=== PATIENT | male | born 1940 | race Caucasian/White ===

== ENCOUNTER 2016-06-05 12:01 | Inpatient (IN) | payer OTHER, MEDICARE ==
[~2016-06-05] VITALS: Ht 172.7 cm; Wt 58.0 kg
[2016-06-05] VITALS (14 sets, daily range): BP systolic 111–204; BP diastolic 56–97; PULSE 90–170; RESP 20–40; TEMP 98.1–103.2; O2SAT 88–99
[~2016-06-05 12:01] MED LIST: PRED20 PO
[2016-06-05] MEDS ORDERED: ADENOSINE IV SOLN 3 MG/ML 2 ML VIAL ONE ×2 (12:29→12:31)
[2016-06-05] MEDS ORDERED: ADENOSINE IV SOLN 3 MG/ML 2 ML VIAL IV PUSH ONE ×4 (12:30→12:45)
[2016-06-05] MEDS ORDERED: DILTIAZEM HCL 25 MG/5 ML VIAL ONE ×2 (12:41→13:02)
[2016-06-05 12:47] LABS: AUTOMATED NEUTROPHIL # 24.5 TH/MM3 (1.8-7.7); BASOPHIL # 0.1 TH/MM3 (0-0.2); BASOPHIL % 0.3 % (0.0-2.0); EOSINOPHIL % 0.1 % (0.0-4.0); HEMATOCRIT 35.7 % (39.0-51.0); LYMPH % 3.8 % (9.0-44.0); MEAN CELL VOLUME 88.6 FL (80.0-100.0); MEAN CORPUSCULAR HEMOGLOBIN 28.4 PG (27.0-34.0); MONO % 5.8 % (0.0-8.0); PLATELET COUNT 196 TH/MM3 (150-450); RED BLOOD COUNT 4.03 MIL/MM3 (4.50-5.90); RED CELL DISTRIBUTION WIDTH 26.5 % (11.6-17.2); WHITE BLOOD COUNT 27.1 TH/MM3 (4.0-11.0)
[2016-06-05 12:49] LABS: HEMO FLAGS AUTO DIFF
[2016-06-05 12:58] LABS: APTT (PATIENT) 22.9 SEC (24.3-30.1); INTERNATIONAL NORMALIZED RATIO 0.9 RATIO
[2016-06-05 13:01] LABS: ALT (GPT) 41 U/L (12-78); ANION GAP 9 MEQ/L (5-15); AST (GOT) 30 U/L (15-37); BICARBONATE 31.4 MEQ/L (21.0-32.0); BLOOD UREA NITROGEN 21 MG/DL (7-18); CHLORIDE 95 MEQ/L (98-107); GLOMERULAR FILTRATION RATE 62 ML/MIN (>89); MAGNESIUM 1.7 MG/DL (1.5-2.5); POTASSIUM 3.8 MEQ/L (3.5-5.1); SODIUM (NA) 135 MEQ/L (136-145)
[2016-06-05 13:05] LABS: ALKALINE PHOSPHATASE 61 U/L (45-117); TOTAL BILIRUBIN ADULT 1.3 MG/DL (0.2-1.0)
--- NOTE | 2016-06-05 13:07 | RADRPT ---
EXAM DATE/TIME: 06/05/2016 12:50 [facility] COMPARISON: CHEST SINGLE AP, January 27, 2016, 14:54. INDICATIONS : Short of breath and upper extremity swelling for several days. MEDICAL HISTORY : Chronic obstructive pulmonary disease. Asthma. SURGICAL HISTORY : Four cardiac stents. ENCOUNTER: Initial ACUITY: 4 - 6 days PAIN SCORE: 2/10 LOCATION: Bilateral chest FINDINGS: A single view of the chest demonstrates hyperinflation which can be seen with COPD. No infiltrates a re seen. Heart is normal in size. The mediastinal contours are unremarkable. Osseous structures are intact. CONCLUSION: Hyperinflation which can be seen with COPD. No acute cardiopulmonary disease and no evidence for an infiltrate. Mani Lopez MD on June 05, 2016 at 13:05 Board Certified Radiologist. This report was verified electronically.
[2016-06-05] MEDS ORDERED: CEFEPIME INJ 2,000 MG in SODIUM CHLORIDE 0.9% INJ 100 ML IV ONE (13:15)
[2016-06-05] MEDS ORDERED: DILTIAZEM HCL 25 MG/5 ML VIAL IV ONE ×3 (13:15→14:15)
[2016-06-05] MEDS ORDERED: VANCOMYCIN INJ 1,200 MG in SODIUM CHLOR 0.9% 250 ML INJ 250 ML IV ONE (13:15)
[2016-06-05 13:17] LABS: CORRECTED NUCLEATED RBC 1 /100 WBC (0-0); NEUTROPHIL # MANUAL DIFF 23.8 TH/MM3 (1.8-7.7); PLATELET ESTIMATE SMEAR NORMAL (NORMAL); PLATELET MORPHOLOGY NORMAL (NORMAL); POLYS (SEG NEUTROPHILS) 88 % (16-70); SCAN/DIFF FINAL DIFF MANUAL; WBC DIFF SAMPLE 100
[2016-06-05 13:24] LABS: KERATOCYTES OCC (NORMAL); TARGET CELLS 1+ (NORMAL)
[2016-06-05] MEDS ORDERED: CLON0.1T PO (13:45)
[2016-06-05] MEDS ORDERED: ALBU0.08 NEB (13:45)
[2016-06-05] MEDS ORDERED: [UNRECOGNIZED DRUG - CODE] PO (13:45)
[2016-06-05] MEDS ORDERED: CYANCRY (13:45)
[2016-06-05] MEDS ORDERED: DILT180C7 PO (13:45)
[2016-06-05] MEDS ORDERED: ERGO1CAP30 PO (13:45)
[2016-06-05] MEDS ORDERED: ASPI81CH7 CHEW (14:00)
[2016-06-05] MEDS ORDERED: CYAN100017 PO (14:00)
[2016-06-05] MEDS ORDERED: MAPA325T PO (14:00)
[2016-06-05] MEDS ORDERED: INSU1INJ5 SQ ×2 (14:04)
[2016-06-05] MEDS ORDERED: KETO1DRO7 EACH EYE (14:04)
[2016-06-05] MEDS ORDERED: LISI-515 PO (14:07)
[2016-06-05] MEDS ORDERED: MILKSUS PO (14:07)
[2016-06-05] MEDS ORDERED: NORC5TAB PO (14:07)
[2016-06-05] MEDS ORDERED: NOVOINJ3 SQ (14:11)
[2016-06-05] MEDS ORDERED: NOVOLOGP2 SQ (14:11)
[2016-06-05] MEDS ORDERED: THERTAB27 PO (14:11)
--- NOTE | 2016-06-05 14:14 | PD ---
HPI Chief Complaint: Edema Time Seen by Provider: 12:22 Travel History International Travel<30 days: No Contact w/Intl Traveler<30days: No Traveled to known affect area: No History of Present Illness HPI This is a 76-year-old male who presents to the emergency department with increasing shortness of breath and arm and leg swelling that been worsening over the past week, constant, severe. He says he's been [facility] but his symptoms have just been worsening. He denies any chest pain. He has not had any fevers or chills. He went to the [facility] who did an EKG and told him to come to the emergency department. PFS Past Medical History AAA: Yes Arthritis: Yes Depression: Yes Heart Rhythm Problems: Yes (AL X 3/PAROXYSMAL A-FIB) Cancer: Yes (HX OF BLADDER CANCER ) Cardiovascular Problems: Yes COPD: Yes GERD: Yes Genitourinary: Yes (CHRONIC KIDNEY DISEASE/BLADDER CA) Hypertension: Yes Medical other: Yes (PVD) Neurologic: Yes (GENERAL MUSCLE WEAKNESS) Respiratory: Yes Integumentary: Yes (BASAL CALL ) Past Surgical History Coronary Stent: Yes (4 STENTS ) Social History Alcohol Use: No Tobacco Use: No (QUIT 14 YEARS AGO ) Substance Use: No Allergies-Medications (Allergen,Severity, Reaction): Coded Allergies: Sulfa (Verified Allergy, Severe, Anaphylaxis, 01/27/16) Reported Meds & Prescriptions Reported Meds & Active Scripts Active Reported Ascorbic Acid 500 Mg Tab 500 Mg PO DAILY Spiriva Handihaler (Tiotropium Inh) 18 Mcg Cap 18 Mcg INH DAILY 1 capsule = 18 mcg Symbicort Inh (Budesonide/Formoterol Fumarate) 160-4.5 Mcg/Act Aero 2 Puff INH BID Proventil Hfa 6.7 GM Inh (Albuterol Sulfate) 90 Mcg/Act Aer 2 Puff INH QID Novolog Inj (Insulin Aspart) 1,000 Unit/10 Ml Vial 2-6 Units SQ ACHS Max dose at bedtime ( ) units; sugars less than 70,(0) units; sugars 161-220,(2) units; sugars 221-280,(3) units; sugars 281-340,(4) units; sugars 341-400,(5) units; sugars greater than 401+,(6)units Novolog Flexpen Inj (Insulin Aspart) 300 Unit/3 Ml Pen 2 Units SQ TIDAC Theragran-M (Multiple Vitamins W/ Minerals) 1 Tab 1 Tab PO DAILY [place] (Hydrocodone-Acetaminophen) 5-325 mg Tab 1 Tab PO Q4H PRN Milk of Magnesia Liq (Magnesium Hydroxide) 400 Mg/5 Ml Susp 30 Ml PO HS PRN Lisinopril 20 Mg Tab 20 Mg PO DAILY Levemir Flextouch Pen Inj (Insulin Detemir) 300 unit/3 ML Pen 8 Units SQ HS Levemir Flextouch Pen Inj (Insulin Detemir) 300 unit/3 ML Pen 12 Units SQ DAILY Allergy Eye Drops (Ketotifen Fumarate (Ophth)) 0.025 % Abdirashid 1 Drop EACH EYE QID Aspirin Children's (Aspirin) 81 Mg Chew 81 Mg CHEW DAILY Mapap (Acetaminophen) 325 Mg Tab 650 Mg PO Q4HR PRN B-12 (Cyanocobalamin) 1,000 Mcg Cap 1,000 Mcg PO DAILY Ergocalciferol 50,000 Unit Cap 50,000 Units PO WEEKLY ON FRIDAYS Diltiazem ER 24 HR (Diltiazem HCl) 180 Mg Caper 180 Mg PO DAILY Clonidine (Clonidine HCl) 0.1 Mg Tab 0.1 Mg PO Q12HR PRN Cheracol-D Cough Liq (Dextromethorphan-Guaifenesin Liq) 10-100 Mg/5 Ml Liq 5 Ml PO Q6H PRN Albuterol Neb (Albuterol Sulfate) 2.5 Mg/3 Ml Neb 2.5 Mg NEB Q6HR PRN Review of Systems Except as stated in HPI: all other systems reviewed are Neg Physical Exam Narrative GENERAL: Frail elderly male in moderate distress SKIN: Warm than erythema both arms HEAD: Atraumatic. Normocephalic. EYES: Pupils equal and round. No injection or drainage. ENT: Moist mucous membranes NECK: Trachea midline. CARDIOVASCULAR: Tachycardic. No murmur appreciated. 2+ bilateral pitting edema in the lower and upper extremities. RESPIRATORY: Coarse breath sounds in the bilateral bases, tachypnea GASTROINTESTINAL: Abdomen soft, non-tender, nondistended. MUSCULOSKELETAL: No obvious deformities. NEUROLOGICAL: Awake and alert. No obvious cranial nerve deficits. Moving all extremities. PSYCHIATRIC: Appropriate mood and affect; insight and judgment normal. Data Data Last Documented VS Vital Signs Date Time Temp Pulse Resp B/P Pulse Ox O2 Delivery O2 Flow Rate FiO2 06/05/16 14:47 98.9 112 28 96 Nasal Cannula 2 06/05/16 13:12 134/71 Orders Electrocardiogram (06/05/16 12:23) B-Type Natriuretic Peptide (06/05/16 12:23) Complete Blood Count With Diff (06/05/16 12:23) Comprehensive Metabolic Panel (06/05/16 12:23) Magnesium (Mg) (06/05/16 12:23) Prothrombin Time / Inr (Pt) (06/05/16 12:23) Act Partial Throm Time (Ptt) (06/05/16 12:23) Troponin I (06/05/16 12:23) Chest, Single Ap (06/05/16 12:23) Ecg Monitoring (06/05/16 12:23) Bilateral Bp Monitoring (06/05/16 12:23) Iv Access Insert/Monitor (06/05/16 12:23) Oximetry (06/05/16 12:23) Oxygen Administration (06/05/16 12:23) Sodium Chloride 0.9% Flush (Ns Flush) (06/05/16 12:30) Adenosine Inj (Adenocard Inj) (06/05/16 12:30) Adenosine Inj (Adenocard Inj) (06/05/16 12:30) Adenosine Inj (Adenocard Inj) (06/05/16 12:29) Adenosine Inj (Adenocard Inj) (06/05/16 12:31) Adenosine Inj (Adenocard Inj) (06/05/16 12:45) Adenosine Inj (Adenocard Inj) (06/05/16 12:45) Diltiazem Inj (Cardizem Inj) (06/05/16 12:41) Diltiazem Inj (Cardizem Inj) (06/05/16 13:15) Diltiazem Inj (Cardizem Inj) (06/05/16 13:02) Blood Culture (06/05/16 13:06) Lactic Acid Sepsis Protocol (06/05/16 13:06) Vancomycin Inj (Vancomycin Inj) (06/05/16 13:15) Cefepime Inj (Maxipime Inj) (06/05/16 13:15) Urinalysis - C+S If Indicated (06/05/16 13:13) Vital Signs (Adult) Q15MX4,Q4H (06/05/16 13:16) Gripper Attacher / Telemetry (06/05/16 13:16) Cardiac Rhythm [place].Q8H (06/05/16 13:16) ^ Notify Dr: Other (06/05/16 13:16) Diltiazem Inj (Cardizem Inj) (06/05/16 13:30) Diltiazem Inj (Cardizem Inj) (06/05/16 14:15) Cath For Specimen (06/05/16 14:08) Ed Poc Ultrasound (06/05/16 ) Diltiazem Inj (Cardizem Inj) (06/05/16 14:15) Admit Order (Ed Use Only) (06/05/16 14:58) Labs Laboratory Tests Test 06/05/16 06/05/16 06/05/16 12:35 13:28 14:50 White Blood Count 27.1 TH/MM3 Red Blood Count 4.03 MIL/MM3 Hemoglobin 11.4 GM/DL Hematocrit 35.7 % Mean Corpuscular Volume 88.6 FL Mean Corpuscular Hemoglobin 28.4 PG Mean Corpuscular Hemoglobin 32.0 % Concent Red Cell Distribution Width 26.5 % Platelet Count 196 TH/MM3 Mean Platelet Volume 8.5 FL Neutrophils (%) (Auto) 90.0 % Lymphocytes (%) (Auto) 3.8 % Monocytes (%) (Auto) 5.8 % Eosinophils (%) (Auto) 0.1 % Basophils (%) (Auto) 0.3 % Neutrophils # (Auto) 24.5 TH/MM3 Lymphocytes # (Auto) 1.0 TH/MM3 Monocytes # (Auto) 1.6 TH/MM3 Eosinophils # (Auto) 0.0 TH/MM3 Basophils # (Auto) 0.1 TH/MM3 CBC Comment AUTO DIFF Differential Total Cells 100 Counted Neutrophils % (Manual) 88 % Lymphocytes % 11 % Monocytes % 1 % Neutrophils # (Manual) 23.8 TH/MM3 Nucleated Red Blood Cells 1 /100 WBC Differential Comment FINAL DIFF MANUAL Platelet Estimate NORMAL Platelet Morphology Comment NORMAL Target Cells 1+ Keratocytes OCC Prothrombin Time 10.0 SEC Prothromb Time International 0.9 RATIO Ratio Activated Partial 22.9 SEC Thromboplast Time Sodium Level 135 MEQ/L Potassium Level 3.8 MEQ/L Chloride Level 95 MEQ/L Carbon Dioxide Level 31.4 MEQ/L Anion Gap 9 MEQ/L Blood Urea Nitrogen 21 MG/DL Creatinine 1.14 MG/DL Estimat Glomerular Filtration 62 ML/MIN Rate Random Glucose 124 MG/DL Calcium Level 8.4 MG/DL Magnesium Level 1.7 MG/DL Total Bilirubin 1.3 MG/DL Aspartate Amino Transf 30 U/L (AST/SGOT) Alanine Aminotransferase 41 U/L (ALT/SGPT) Alkaline Phosphatase 61 U/L Troponin I 0.08 NG/ML B-Type Natriuretic Peptide 110 PG/ML Total Protein 7.0 GM/DL Albumin 3.0 GM/DL Lactic Acid Level 2.5 mmol/L Urine Color YELLOW Urine Turbidity CLEAR Urine pH 6.0 Urine Specific [place] 1.011 Urine Protein TRACE mg/dL Urine Glucose (UA) NEG mg/dL Urine Ketones NEG mg/dL Urine Occult Blood NEG Urine Nitrite NEG Urine Bilirubin NEG Urine Urobilinogen LESS THAN 2.0 MG/DL Urine Leukocyte Esterase NEG Urine RBC 2 /hpf Urine WBC 3 /hpf Urine Bacteria RARE /hpf Urine Hyaline Casts 11 /lpf Microscopic Urinalysis Comment CULT NOT INDICATED MDM Medical Decision Making Medical Screen Exam Complete: Yes Emergency Medical Condition: Yes Interpretation(s) Afebrile, tachycardic, tachypneic, hypertensive Leukocytosis with left shift Troponin is 0.08 Lactic acid is 2.5 Chest x-ray: Hyperinflation EKG: Narrow complex tachycardia with a rate in the 170s Differential Diagnosis Atrial fibrillation, atrial flutter, sepsis, pneumonia, congestive heart failure Narrative Course This is a 76-year-old male who presents to the emergency department with increasing shortness of breath and edema. He was recently started a monitor and an IV was established. He is found to have a heart rate in the 170s and he was hypertensive. He was given 3 doses of adenosine. His heart rate did not improve. He was started on IV diltiazem in the setting of regular narrow complex tachycardia. Ultimately his heart rate improved into the 120s and 130s. Repeat EKG appears to be sinus tachycardia. Patient was found to have a leukocytosis. Cultures were obtained and he was covered with broad-spectrum antibiotics. I performed a bedside ultrasound which demonstrated a full IVC so I avoided any aggressive IV hydration. Patient was admitted to Dr. Gomez who agreed to admit the patient. Critical Care Narrative Aggregate critical care time was 45 minutes. Time to perform other separately billable procedures was not included in the critical care time. My time did not include minutes spent treating any other patients simultaneously or on activities that did not directly contribute to the patient's treatment. The services I provided to this patient were to treat and/or prevent clinically significant deterioration that could result in:disability, I provided critical care services requiring my management, as noted below: Chart data review, documentation time, medication orders and management, vital sign assessments/reviewing monitor data, ordering and reviewing lab tests, ordering and interpreting/reviewing x-rays and diagnostic studies, care of the patient and discussion of the patient with the admitting physicians. Physician Communication Physician Communication Discussed with Dr. Gomez Diagnosis Primary Impression: Narrow complex tachycardia Admitting Information Admitting Physician Requests: Ivana Dang MD Jun 05, 2016 14:14
[2016-06-05] MEDS ORDERED: SYMB160A INH (14:20)
[2016-06-05] MEDS ORDERED: ASCO500T PO (14:20)
[2016-06-05] MEDS ORDERED: ALBU6.7H INH (14:20)
[2016-06-05] MEDS ORDERED: SPIRCAP INH (14:20)
[2016-06-05] MEDS: DILTIAZEM INJ 125 MG in SODIUM CHLORIDE 0.9% INJ 100 ML IV SCH (14:37)
[2016-06-05 15:07] LABS: BACTERIA, URINE RARE /hpf; BLOOD, URINE NEG (NEG); COMMENT (UR) CULT NOT INDICATED; CULTURE IF INDICATED CULT NOT INDICATED; GLUCOSE,URINE NEG (NEG); HYALINE CAST, URINE 11 /lpf (RARE); KETONE, URINE NEG (NEG); NITRITE,URINE NEG (NEG); URINE COLOR YELLOW (YELLW/STRAW)
[2016-06-05 15:36] LABS: LACTIC ACID GHOST NOT REPORTABLE
[2016-06-05] MEDS ORDERED: RESP: ALBUTEROL 0.63 MG/3 ML NEB (PRN) NEB (15:45)
[2016-06-05] MEDS ORDERED: Vancomycin Consult Pharmacy 1 EA OTHER SCH (15:45)
[2016-06-05] MEDS ORDERED: GLUCAGON 1 MG/ML VIAL OTHER PRN (15:45)
[2016-06-05] MEDS ORDERED: HYDROmorphone HCL PF 1 MG/ML VIAL IV PUSH PRN (15:45)
[2016-06-05] MEDS ORDERED: ONDANSETRON HCL 4 MG/2 ML VIAL IV PUSH PRN (15:45)
--- NOTE | 2016-06-05 15:55 | HHI.HP ---
[facility] [place] Primary Care Physician Non-Staff Admission Diagnosis svt, sepsis Diagnoses: (1) SVT (supraventricular tachycardia) Diagnosis: Principal (2) Severe sepsis Diagnosis: Principal Chief Complaint: swelling and pain of the right upper extremity Travel History International Travel<30 Days: No Contact w/Intl Traveler <30 Da: No Traveled to Known Affected Are: No Sepsis Criteria SIRS Criteria (2 or more): Heart rate over 90, RR > 20 or PaCO2 < 32, WBC > 70990, < 4000 or > 10% bands Sepsis Criteria (SIRS+source): Infect source susp/known Severe Sepsis (+one): Lactate >2 Criteria Outcome: Meets severe sepsis criteria History of Present Illness patient is a 76 y/o male with history of CAD, diabetes who [facility]. he says that he's had swelling and erythema of both upper extremities- however more on the right side- over the past four days. he says that this has been getting worse. he says that he thinks he was given antibiotic in retirement. not sure if he had any fever. he denies any chest pain but had some sob which improved by the time of my examination. he denies any productive cough. he was found to have SVT at the time of presentation to ER for which he received Adenosine and Cardizem and then placed on cardizem drip. Review of Systems Constitutional: DENIES: Fever, Weight loss, Chills, Night Sweats Eyes: DENIES: Blurred vision, Diplopia, Vision loss, Double Vision Ears, nose, mouth, throat: DENIES: Tinnitus, Vertigo, Throat pain, Epistaxis Respiratory: COMPLAINS OF: Shortness of breath, DENIES: Apneas, Cough, Snoring , Wheezing, Hemoptysis, Sputum production Cardiovascular: DENIES: Chest pain, Palpitations, Syncope, Dyspnea on Exertion , PND, Lower Extremity Edema, Orthopnea, Claudication Gastrointestinal: DENIES: Abdominal pain, Black stools, Bloody stools, Constipation, Diarrhea, Nausea, Vomiting, Difficulty Swallowing, Anorexia Genitourinary: DENIES: Urinary frequency, Urgency, Hematuria, Dysuria Musculoskeletal: COMPLAINS OF: Joint pain (right upper extremity), DENIES: Muscle aches, Stiffness, Joint Swelling Integumentary: DENIES: Rash Neurologic: DENIES: Abnormal gait, Headache, Localized weakness, Paresthesias, Seizures, Speech Problems, Tremor, Poor Balance Psychiatric: DENIES: Anxiety, Confusion, Mood changes, Depression, Hallucinations, Agitation, Suicidal Ideation, Homicidal Ideation, Delusions Past Family Social History Past Medical History CAD hypertension diabetes mellitus bladder cancer Past Surgical History cardiac stent placement Reported Medications [place] (Hydrocodone-Acetaminophen) 5-325 mg Tab 1 Tab PO Q4H PRN Milk of Magnesia Liq (Magnesium Hydroxide) 400 Mg/5 Ml Susp 30 Ml PO HS PRN Lisinopril 20 Mg Tab 20 Mg PO DAILY Levemir Flextouch Pen Inj (Insulin Detemir) 300 unit/3 ML Pen 8 Units SQ HS Levemir Flextouch Pen Inj (Insulin Detemir) 300 unit/3 ML Pen 12 Units SQ DAILY Allergy Eye Drops (Ketotifen Fumarate (Ophth)) 0.025 % Abdirashid 1 Drop EACH EYE QID Aspirin Children's (Aspirin) 81 Mg Chew 81 Mg CHEW DAILY Mapap (Acetaminophen) 325 Mg Tab 650 Mg PO Q4HR PRN B-12 (Cyanocobalamin) 1,000 Mcg Cap 1,000 Mcg PO DAILY Ergocalciferol 50,000 Unit Cap 50,000 Units PO WEEKLY ON FRIDAYS Diltiazem ER 24 HR (Diltiazem HCl) 180 Mg Caper 180 Mg PO DAILY Clonidine (Clonidine HCl) 0.1 Mg Tab 0.1 Mg PO Q12HR PRN Cheracol-D Cough Liq (Dextromethorphan-Guaifenesin Liq) 10-100 Mg/5 Ml Liq 5 Ml PO Q6H PRN Albuterol Neb (Albuterol Sulfate) 2.5 Mg/3 Ml Neb 2.5 Mg NEB Q6HR PRN Allergies: Coded Allergies: Sulfa (Verified Allergy, Severe, Anaphylaxis, 01/27/16) Active Ordered Medications Current Medications IV Flush (NS Flush) 2 ml UNSCH PRN IVF FLUSH AFTER USING IV ACCESS; Start at 12:30 Adenosine (Adenocard Inj) 6 mg ONCE ONCE IV PUSH Last administered on t 13:36; Start 06/05/16 at 12:30; Stop 06/05/16 at 12:31; Status DC Adenosine (Adenocard Inj) 12 mg ONCE ONCE IV PUSH Last administered on 13:37; Start 06/05/16 at 12:30; Stop 06/05/16 at 12:31; Status DC Adenosine (Adenocard Inj) 18 mg STK-MED ONCE .ROUTE ; Start 06/05/16 at 12:29; Stop 06/05/16 at 12:30; Status DC Adenosine (Adenocard Inj) 6 mg STK-MED ONCE .ROUTE ; Start 06/05/16 at 12:31; Stop 06/05/16 at 12:32; Status DC Adenosine (Adenocard Inj) 6 mg ONCE ONCE IV PUSH ; Start 06/05/16 at 12:45; Stop 06/05/16 at 12:46; Status DC Adenosine (Adenocard Inj) 12 mg ONCE ONCE IV PUSH ; Start 06/05/16 at 12:45; Stop 06/05/16 at 12:46; Status DC Diltiazem HCl (Cardizem Inj) 25 mg STK-MED ONCE .ROUTE ; Start 06/05/16 at 12:41 ; Stop 06/05/16 at 12:42; Status DC Diltiazem HCl (Cardizem Inj) 25 mg ONCE ONCE IV Last administered on 06/05/16 13:38; Start 06/05/16 at 13:15; Stop 06/05/16 at 13:16; Status DC Diltiazem HCl 25 mg 25 mg STK-MED ONCE .ROUTE Last administered on 06/05/16 13: 37; Start 06/05/16 at 13:02; Stop 06/05/16 at 13:03; Status DC Vancomycin HCl 1200 mg/Sodium Chloride 262 ml @ 250 mls/hr ONCE ONCE IV Last administered on 06/05/16 14:45; Start 06/05/16 at 13:15; Stop 06/05/16 at 14:17; Status DC Cefepime HCl 2000 mg/Sodium Chloride 100 ml @ 200 mls/hr ONCE ONCE IV ; Start 06/05/16 at 13:15; Stop 06/05/16 at 13:44; Status DC Diltiazem HCl/ Sodium Chloride (Cardizem Inj/NS Inj) 125 ml @ 0 mls/hr TITRATE IV Last administered on 06/05/16 14:37; Start 06/05/16 at 13:30 Diltiazem HCl (Cardizem Inj) 20 mg ONCE ONCE IV Last administered on 06/05/16 14:35; Start 06/05/16 at 14:15; Stop 06/05/16 at 14:16; Status DC Diltiazem HCl (Cardizem Inj) 20 mg ONCE ONCE IV ; Start 06/05/16 at 14:15; Stop 06/05/16 at 14:16; Status DC Family History not relevant to this admission. Social History quit smoking and drinking years ago. Physical Exam Vital Signs Vital Signs Date Time Temp Pulse Resp B/P Pulse Ox O2 Delivery O2 Flow Rate FiO2 06/05/16 14:47 98.9 112 28 96 Nasal Cannula 2 06/05/16 13:12 135 30 134/71 97 Nasal Cannula 2 06/05/16 12:48 97 Nasal Cannula 2 06/05/16 12:43 145 28 188/88 97 Nasal Cannula 2 06/05/16 12:15 99.4 170 40 204/97 96 06/05/16 12:08 98.1 160 36 169/93 88 Room Air Physical Exam GENERAL: This is a well-nourished, well-developed patient, in no apparent distress. SKIN: erythema over the right upper extremity. HEAD: Atraumatic. Normocephalic. No temporal or scalp tenderness. EYES: Pupils equal round and reactive. Extraocular motions intact. No scleral icterus. No injection or drainage. ENT: Nose without bleeding, purulent drainage or septal hematoma. Throat without erythema, tonsillar hypertrophy or exudate. Uvula midline. Airway patent. NECK: Trachea midline. No JVD or lymphadenopathy. Supple, nontender, no meningeal signs. CARDIOVASCULAR: Regular rate and rhythm without murmurs, gallops, or rubs. RESPIRATORY: Clear to auscultation. Breath sounds equal bilaterally. No wheezes , rales, or rhonchi. GASTROINTESTINAL: Abdomen soft, non-tender, nondistended. No hepato-splenomegaly , or palpable masses. No guarding. MUSCULOSKELETAL:swelling, erythema and warmth over the right upper extremity- NEUROLOGICAL: Awake and alert. Cranial nerves II through XII intact. Motor and sensory grossly within normal limits. Five out of 5 muscle strength in all muscle groups. Normal speech. Laboratory Laboratory Tests Test 06/05/16 06/05/16 06/05/16 12:35 13:28 14:50 White Blood Count 27.1 Red Blood Count 4.03 Hemoglobin 11.4 Hematocrit 35.7 Mean Corpuscular Volume 88.6 Mean Corpuscular Hemoglobin 28.4 Mean Corpuscular Hemoglobin 32.0 Concent Red Cell Distribution Width 26.5 Platelet Count 196 Mean Platelet Volume 8.5 Neutrophils (%) (Auto) 90.0 Lymphocytes (%) (Auto) 3.8 Monocytes (%) (Auto) 5.8 Eosinophils (%) (Auto) 0.1 Basophils (%) (Auto) 0.3 Neutrophils # (Auto) 24.5 Lymphocytes # (Auto) 1.0 Monocytes # (Auto) 1.6 Eosinophils # (Auto) 0.0 Basophils # (Auto) 0.1 CBC Comment AUTO DIFF Differential Total Cells 100 Counted Neutrophils % (Manual) 88 Lymphocytes % 11 Monocytes % 1 Neutrophils # (Manual) 23.8 Nucleated Red Blood Cells 1 Differential Comment FINAL DIFF MANUAL Platelet Estimate NORMAL Platelet Morphology Comment NORMAL Target Cells 1+ Keratocytes OCC Prothrombin Time 10.0 Prothromb Time International 0.9 Ratio Activated Partial 22.9 Thromboplast Time Sodium Level 135 Potassium Level 3.8 Chloride Level 95 Carbon Dioxide Level 31.4 Anion Gap 9 Blood Urea Nitrogen 21 Creatinine 1.14 Estimat Glomerular Filtration 62 Rate Random Glucose 124 Calcium Level 8.4 Magnesium Level 1.7 Total Bilirubin 1.3 Aspartate Amino Transf 30 (AST/SGOT) Alanine Aminotransferase 41 (ALT/SGPT) Alkaline Phosphatase 61 Troponin I 0.08 B-Type Natriuretic Peptide 110 Total Protein 7.0 Albumin 3.0 Lactic Acid Level 2.5 Urine Color YELLOW Urine Turbidity CLEAR Urine pH 6.0 Urine Specific [place] 1.011 Urine Protein TRACE Urine Glucose (UA) NEG Urine Ketones NEG Urine Occult Blood NEG Urine Nitrite NEG Urine Bilirubin NEG Urine Urobilinogen LESS THAN 2.0 Urine Leukocyte Esterase NEG Urine RBC 2 Urine WBC 3 Urine Bacteria RARE Urine Hyaline Casts 11 Microscopic Urinalysis Comment CULT NOT INDICATED Date/Time Procedure Status Source Growth 06/05/16 13:25 Aerobic Blood Culture Received Blood Peripheral Pending 06/05/16 13:25 Anaerobic Blood Culture Received Blood Peripheral Pending Result Diagram: 06/05/16 1235 06/05/16 1235 Imaging Last Impressions Chest X-Ray 06/05/16 1223 Signed Impressions: Service Date/Time: June 12:50 - CONCLUSION: Hyperinflation which can be seen with COPD. No acute cardiopulmonary disease and no evidence for an infiltrate. Mani Lopez MD EKG; sinus tachycardia Assessment and Plan Assessment and Plan A/P - severe sepsis due to cellulitis of the right upper extremity continue with broad-spectrum IV antibiotics- keep the right hand elevated- continue pain control check venous doppler of the upper extremities- follow the cultures and consult ID -SVT- due to sepsis- started on cardizem drip- will resume po cardizem- check echo- consider cardiology evaluation if no improvement -CAD- s/p stent placement; continue aspirin -diabetes mellitus; resume home insulin regimen- accu-check with SSI -COPD; resume Symbicort and Spiriva- neb treatment as needed of note the patient is on home oxygen -DVT prophylaxis with Lovenox Discussed Condition With ER physician and the patient. Physician Certification 2 Midnight Certification Type: Admission for Inpatient Services Order for Inpatient Services The services are ordered in accordance with Medicare regulations or non- Medicare payer requirements, as applicable. In the case of services not specified as inpatient-only, they are appropriately provided as inpatient services in accordance with the 2-midnight benchmark. Estimated LOS (days): 3 days is the estimated time the patient will need to remain in the hospital, assuming treatment plan goals are met and no additional complications. Post-Hospital Plan: SNF Pankaj Booth MD Jun 05, 2016 15:55
[2016-06-05] MEDS: INSULIN ASPART SUPPLEMENTAL SCALE SQ SCH ×2 (16:00→20:56)
--- NOTE | 2016-06-05 16:54 | RADRPT ---
EXAM DATE/TIME: 06/05/2016 16:01 [facility] COMPARISON: No previous studies available for comparison. INDICATIONS : Edema. MEDICAL HISTORY : [facility]. Hyoertension. COPD. Dyspnea. Gastroreflux disease. Arthritis. History of bladder cancer. SURGICAL HISTORY : Coronary artery stents. ENCOUNTER: Initial ACUITY: 1 day PAIN SCORE: 5/10 LOCATION: Bilateral arms. FINDINGS: RIGHT UPPER EXTREMITY: There is spontaneous flow documented in the brachial, basilic, cephalic, axillary, and subclavian vei ns. The vessels are compressible and augmentation response is documented. No filling defects are se en. The flow is phasic with respiration. Direction of flow in the jugular vein is caudal. LEFT UPPER EXTREMITY: There is spontaneous flow documented in the brachial, basilic, cephalic, axillary, and subclavian vei ns. The vessels are compressible and augmentation response is documented. No filling defects are se en. The flow is phasic with respiration. Direction of flow in the jugular vein is caudal. CONCLUSION: No evidence of upper extremity DVT on the right or left. Matt Sapp MD on June 05, 2016 at 16:52 Board Certified Radiologist. This report was verified electronically.
--- NOTE | 2016-06-05 17:27 | RADRPT ---
EXAM DATE/TIME: 06/05/2016 17:02 [facility] COMPARISON: No previous studies available for comparison. INDICATIONS : Right elbow pain, swelling, and redness. Fluid leaking from elbow. MEDICAL HISTORY : None. SURGICAL HISTORY : None. ENCOUNTER: Initial ACUITY: 2 months PAIN SCORE: 7/10 LOCATION: Right elbow. FINDINGS: 4 views of the right elbow. Bone alignment within normal limits. No evidence of fracture. No evidenc e of joint effusion. Small olecranon process osteophytes. No evidence of joint narrowing. Soft tissue swelling over the olecranon process. CONCLUSION: Minimal arthritic findings. Prominent soft tissue swelling of the olecranon process indicating possib le olecranon bursitis. Matt Sapp MD on June 05, 2016 at 17:25 Board Certified Radiologist. This report was verified electronically.
[2016-06-05] MEDS: ALBUTEROL SULFATE 90 MCG/ACT HFA 8 GM INHALER INH SCH ×2 (18:24→21:48)
[2016-06-05] MEDS: ACETAMINOPHEN 325 MG TAB PO PRN (19:27)
[2016-06-05] MEDS ORDERED: SODIUM CHLORID 0.9% 500 ML INJ 500 ML IV ONE (20:15)
[2016-06-05] MEDS ORDERED: RESP: ALBUTEROL 2.5 MG/IPRATROPIUM 0.5 MG NEB (PRN) NEB (20:30)
[2016-06-05] MEDS: INSULIN DETEMIR 100 UNITS/ML VIAL SQ SCH (21:48)
[2016-06-05] MEDS: BUDESONIDE-FORMOTEROL 160/4.5 MCG INHALER INH SCH (21:48)
[2016-06-06] VITALS (14 sets, daily range): BP systolic 104–145; BP diastolic 53–63; PULSE 87–117; RESP 18–22; TEMP 98.9–99.2; O2SAT 90–95
[2016-06-06 01:03] LABS: POTASSIUM 3.5 MEQ/L (3.5-5.1)
[2016-06-06 01:25] LABS: CALCIUM-PROTEIN CORRECTED 8.6 MG/DL (8.5-10.1)
[2016-06-06] MEDS: CEFEPIME INJ 1,000 MG in SODIUM CHLORIDE 0.9% INJ 100 ML IV SCH ×2 (01:59→14:58)
[2016-06-06 04:27] LABS: AUTOMATED NEUTROPHIL # 16.9 TH/MM3 (1.8-7.7); BASOPHIL # 0.1 TH/MM3 (0-0.2); BASOPHIL % 0.3 % (0.0-2.0); HEMATOCRIT 26.3 % (39.0-51.0); LYMPH % 3.2 % (9.0-44.0); LYMPHOCYTE # 0.6 TH/MM3 (1.0-4.8); MEAN CELL VOLUME 87.6 FL (80.0-100.0); MEAN CORPUSCULAR HEMOGLOBIN 28.4 PG (27.0-34.0); MEAN CORPUSCULAR HGB CONC 32.4 % (32.0-36.0); MONO % 4.7 % (0.0-8.0); NEUT % 91.8 % (16.0-70.0); PLATELET COUNT 115 TH/MM3 (150-450); RED BLOOD COUNT 3.01 MIL/MM3 (4.50-5.90); RED CELL DISTRIBUTION WIDTH 25.7 % (11.6-17.2); WHITE BLOOD COUNT 18.4 TH/MM3 (4.0-11.0)
[2016-06-06 04:28] LABS: HEMO FLAGS AUTO DIFF
[2016-06-06] MEDS: ACETAMINOPHEN/HYDROcodone 325 MG/5 MG TAB PO PRN ×3 (05:46→20:08)
[2016-06-06] MEDS: VANCOMYCIN INJ 1,500 MG in SODIUM CHLORID 0.9% 500 ML INJ 500 ML IV SCH (06:45)
[2016-06-06] MEDS: INSULIN ASPART SUPPLEMENTAL SCALE SQ SCH ×4 (07:00→20:10)
[2016-06-06 07:26] LABS: SCAN/DIFF AUTO DIFF CONFIRMED
[2016-06-06 07:27] LABS: KERATOCYTES OCC (NORMAL); TARGET CELLS 1+ (NORMAL)
[2016-06-06 07:29] LABS: PLATELET ESTIMATE SMEAR LOW (NORMAL); PLATELET MORPHOLOGY NORMAL (NORMAL)
--- NOTE | 2016-06-06 07:47 | HHI.PR ---
Subjective Remarks pain and swelling of the right upper extremity is already better. T max 103.2. no other complaints. Objective Vitals Vital Signs Date Time Temp Pulse Resp B/P Pulse Ox O2 Delivery O2 Flow Rate FiO2 06/06/16 06:37 99.2 109 20 107/59 90 Nasal Cannula 3 06/06/16 04:50 99.0 107 20 136/63 94 Room Air 3 06/06/16 00:58 92 18 115/62 95 Nasal Cannula 3 06/05/16 21:50 98.7 100 20 117/56 90 Nasal Cannula 3 06/05/16 20:36 99.2 102 20 89 Nasal Cannula 3 06/05/16 19:13 103.2 119 20 129/61 93 Nasal Cannula 2 06/05/16 19:09 99 Nasal Cannula 2.00 06/05/16 17:54 99 Nasal Cannula 2 06/05/16 17:45 90 20 129/61 99 Nasal Cannula 2 06/05/16 16:56 95 Nasal Cannula 2.00 06/05/16 16:44 108 20 118/57 95 Nasal Cannula 2 06/05/16 15:31 100 28 111/56 95 Nasal Cannula 2 06/05/16 14:47 98.9 112 28 96 Nasal Cannula 2 06/05/16 13:12 135 30 134/71 97 Nasal Cannula 2 06/05/16 12:48 97 Nasal Cannula 2 06/05/16 12:43 145 28 188/88 97 Nasal Cannula 2 06/05/16 12:15 99.4 170 40 204/97 96 06/05/16 12:08 98.1 160 36 169/93 88 Room Air Result Diagram: 06/06/16 0340 06/06/16 0030 Imaging Last Impressions Chest X-Ray 06/05/16 1223 Signed Impressions: Service Date/Time: June 12:50 - CONCLUSION: Hyperinflation which can be seen with COPD. No acute cardiopulmonary disease and no evidence for an infiltrate. Mani Lopez MD Upper Extremity Ultrasound 06/05/16 0000 Signed Impressions: Service Date/Time: June 16:01 - CONCLUSION: No evidence of upper extremity DVT on the right or left. Matt Sapp MD Elbow X-Ray 06/05/16 0000 Signed Impressions: Service Date/Time: June 17:02 - CONCLUSION: Minimal arthritic findings. Prominent soft tissue swelling of the olecranon process indicating possible olecranon bursitis. Matt Sapp MD Objective Remarks GENERAL: This is a well-nourished, well-developed patient, in no apparent distress. CARDIOVASCULAR: Regular rate and regular rhythm without murmurs, gallops, or rubs. RESPIRATORY: Clear to auscultation. Breath sounds equal bilaterally. No wheezes , rales, or rhonchi. GASTROINTESTINAL: Abdomen soft, non-tender, nondistended. Normal, active bowel sounds MUSCULOSKELETAL: edema , erythema and pain to the right upper extremity has improved- bilateral pedal edema noted. NEURO: Alert & Oriented x4 to person, place, time, situation. Moves all ext x4 Procedures none Medications and IVs Current Medications IV Flush (NS Flush) 2 ml UNSCH PRN IVF FLUSH AFTER USING IV ACCESS; Start at 12:30 Adenosine (Adenocard Inj) 6 mg ONCE ONCE IV PUSH Last administered on 13:36; Start 06/05/16 at 12:30; Stop 06/05/16 at 12:31; Status DC Adenosine (Adenocard Inj) 12 mg ONCE ONCE IV PUSH Last administered on 13:37; Start 06/05/16 at 12:30; Stop 06/05/16 at 12:31; Status DC Adenosine (Adenocard Inj) 18 mg STK-MED ONCE .ROUTE ; Start 06/05/16 at 12:29; Stop 06/05/16 at 12:30; Status DC Adenosine (Adenocard Inj) 6 mg STK-MED ONCE .ROUTE ; Start 06/05/16 at 12:31; Stop 06/05/16 at 12:32; Status DC Adenosine (Adenocard Inj) 6 mg ONCE ONCE IV PUSH ; Start 06/05/16 at 12:45; Stop 06/05/16 at 12:46; Status DC Adenosine (Adenocard Inj) 12 mg ONCE ONCE IV PUSH ; Start 06/05/16 at 12:45; Stop 06/05/16 at 12:46; Status DC Diltiazem HCl (Cardizem Inj) 25 mg STK-MED ONCE .ROUTE ; Start 06/05/16 at 12:41 ; Stop 06/05/16 at 12:42; Status DC Diltiazem HCl (Cardizem Inj) 25 mg ONCE ONCE IV Last administered on 06/05/16 13:38; Start 06/05/16 at 13:15; Stop 06/05/16 at 13:16; Status DC Diltiazem HCl 25 mg 25 mg STK-MED ONCE .ROUTE Last administered on 06/05/16 13: 37; Start 06/05/16 at 13:02; Stop 06/05/16 at 13:03; Status DC Vancomycin HCl 1200 mg/Sodium Chloride 262 ml @ 250 mls/hr ONCE ONCE IV Last administered on 06/05/16 14:45; Start 06/05/16 at 13:15; Stop 06/05/16 at 14:17; Status DC Cefepime HCl 2000 mg/Sodium Chloride 100 ml @ 200 mls/hr ONCE ONCE IV Last administered on 06/05/16 16:13; Start 06/05/16 at 13:15; Stop 06/05/16 at 13:44; Status DC Diltiazem HCl/ Sodium Chloride (Cardizem Inj/NS Inj) 125 ml @ 0 mls/hr TITRATE IV Last administered on 06/05/16 14:37; Start 06/05/16 at 13:30 Diltiazem HCl (Cardizem Inj) 20 mg ONCE ONCE IV Last administered on 06/05/16 14:35; Start 06/05/16 at 14:15; Stop 06/05/16 at 14:16; Status DC Diltiazem HCl 20 mg 20 mg ONCE ONCE IV Last administered on 06/05/16 16:16; Start 06/05/16 at 14:15; Stop 06/05/16 at 14:16; Status DC Pharmacy Profile Note 0 ml @ 0 mls/hr UNSCH OTHER ; Start 06/05/16 at 15:45 Cefepime HCl/ Sodium Chloride (Maxipime Inj/NS Inj) 100 ml @ 200 mls/hr Q12H IV Last administered on 06/06/16 01:59; Start 06/06/16 at 02:00 Acetaminophen (Tylenol) 650 mg Q4H PRN PO FEVER/ PAIN 1-5 Last administered on 06/05/16 19:27; Start 06/05/16 at 15:45 Acetaminophen/ Hydrocodone Bitart ([place] 5-325 Mg) 1 tab Q4H PRN PO PAIN 6-10 Last administered on 06/06/16 05:46; Start 06/05/16 at 15:45 Hydromorphone HCl (Dilaudid Pf Inj) 0.2 mg Q4H PRN IV PUSH BREAKTHROUGH PAIN Last administered on 06/05/16 16:47; Start 06/05/16 at 15:45 Ondansetron HCl (Zofran Inj) 4 mg Q8HR PRN IV PUSH NAUSEA; Start 06/05/16 at 15: 45 Albuterol Sulfate (Proair Hfa Inh) 2 puff QID INH Last administered on 21:48; Start 06/05/16 at 18:00 Aspirin (Aspirin Chew) 81 mg DAILY CHEW ; Start 06/06/16 at 09:00 Budesonide/ Formoterol Fumarate (Symbicort 160-4.5 Inh) 2 puff BID INH Last administered on 06/05/16 21:48; Start 06/05/16 at 21:00 Lisinopril (Prinivil) 20 mg DAILY PO ; Start 06/06/16 at 09:00 Tiotropium [place] (Spiriva Inh) 18 mcg DAILY INH ; Start 06/06/16 at 09:00 Diltiazem HCl (Cardizem Cd) 180 mg DAILY PO ; Start 06/06/16 at 09:00 Insulin Detemir (Levemir Inj) 8 units HS SQ Last administered on 06/05/16 21:48 ; Start 06/05/16 at 21:00 Insulin Detemir (Levemir Inj) 12 units DAILY SQ ; Start 06/06/16 at 09:00 Naphazoline HCl (Clear Eyes Redness Relief 0.012% Opth Soln) 1 drop QID PRN EACH EYE EYE ITCH; Start 06/05/16 at 16:30 Albuterol Sulfate (Albuterol Neb) 0.63 mg Q6HR NEB PRN NEB SHORTNESS OF BREATH ; Start 06/05/16 at 15:45 Dextrose (D50w (Vial) Inj) 25 ml UNSCH PRN IV PUSH HYPOGLYCEMIA-SEE COMMENTS; Start 06/05/16 at 15:45 Glucagon (Glucagon Inj) 1 mg UNSCH PRN OTHER HYPOGLYCEMIA-SEE COMMENTS; Start 06/05/16 at 15:45 Insulin Aspart 1 1 ACHS SLIDING SCALE SQ Last administered on 06/05/16 20:56; Start 06/05/16 at 16:00 Vancomycin HCl/ Sodium Chloride (Vancomycin Inj/ NS 500 ml Inj) 515 ml @ 250 mls/hr Q18H IV Last administered on 06/06/16 06:45; Start 06/06/16 at 06:00 Miscellaneous Information SPECIFIC LAB TO BE DRAWN:VANCOMYCIN TROUGH DATE TO... ONCE ONCE XX ; Start 06/08/16 at 11:45; Stop 06/08/16 at 11:46 Sodium Chloride (NS 500 ml Inj) 500 ml @ 500 mls/hr BOLUS ONCE IV Last administered on 06/05/16 20:36; Start 06/05/16 at 20:15; Stop 06/05/16 at 21:14; Status DC Albuterol/ Ipratropium (Duoneb Neb) 1 ampule Q4HR NEB PRN NEB SOB/WHEEZING; Start 06/05/16 at 20:30 A/P Assessment and Plan A/P - severe sepsis due to cellulitis of the right upper extremity- improved continue with broad-spectrum IV antibiotics- keep the right hand elevated- continue pain control venous doppler of the upper extremities with no DVT-XR of the right elbow with possible olecranon bursitis- follow the cultures.consulted ID -SVT- due to sepsis- off the cardizem drip- resumed po cardizem- check echo- cardiology evaluation pending. -CAD with mild levation of troponin- s/p stent placement; continue aspirin elevated troponin likely due to tachycardia/ sepsis -diabetes mellitus; resumed home insulin regimen- accu-check with SSI -COPD; resumed Symbicort and Spiriva- neb treatment as needed of note the patient is on home oxygen -anemia of chronic disease- H/H has dropped likely dilutional- will repeat H/H in am. -DVT prophylaxis with LovePankaj Shell MD Jun 06, 2016 07:47
[2016-06-06] MEDS: TIOTROPIUM BROMIDE 18 MCG INH INH SCH (09:00)
--- NOTE | 2016-06-06 09:47 | MB ---
cc: LUKE BROWN MD DATE OF CONSULTATION: 06/06/2016 REASON FOR CONSULTATION: Supraventricular tachycardia. HISTORY OF PRESENT ILLNESS Mr. Garcia is a 76-year-old man who has a reported remote history of myocardial infarction who follows with Dr. Vora. He presented to the emergency room with erythema of both upper extremities and was found to be septic secondary to cellulitis and have supraventricular tachycardia. The patient was able to give me a history of prior myocardial infarction and chronic obstructive pulmonary disease and subsequently [facility]. He denies any cardiac complaints. PAST MEDICAL HISTORY: Per the records past medical history does include; 1. Coronary artery disease 2. Hypertension. 3. Diabetes. 4. Chronic obstructive pulmonary disease. 5. Bladder cancer. 6. Prior cardiac stent. OUTPATIENT MEDICATIONS Reportedly included 1. Lisinopril 2. Levemir 3. Aspirin 4. B12 5. Cardizem 180 mg a day. 6. Clonidine as needed 7. Albuterol 8. Eye drops. FAMILY HISTORY Relevant to this admission. SOCIAL HISTORY The patient no longer smokes or drinks. REVIEW OF SYSTEMS Except as mentioned in the history of present illness all 12 systems are negative. PHYSICAL EXAMINATION VITAL SIGNS: Current heart rate is 105. His heart rate on admission was about 170. Blood pressure is 107/59, 18. IN GENERAL: He is an overweight man who is in no apparent distress. NECK: His neck is free from jugular venous distention. LUNGS: Extremely decreased but clear to auscultation. CARDIOVASCULAR SYSTEM: Cardiovascular examination he has a normal S1 NST of the rhythm is regular. No rubs or gallops were appreciated. ABDOMEN: The abdomen is soft. EXTREMITIES: The upper extremities are erythematous. The lower extremities have trace to 1+ edema. RADIOLOGIC: EKG initially shows SVT with nonspecific ST-T wave changes currently telemetry shows sinus tachycardia of 105 beats a minute. LABORATORY FINDINGS Showed initial white count of 27 and follow up white count is 18. His creatinine is 1.28, serial troponins are 0.08/0.15/0.12. IMPRESSION 1. Supraventricular tachycardia (SVT) - the patient's supraventricular tachycardia is most likely related to his severe sepsis. He has had a reasonable improvement in the short duration of his hospital stay. I would continue with his outpatient medical management. His heart rate right now is felt to be appropriate for his condition. I would not intervene any further at this point. 2. Indeterminate troponin - this is likely secondary to his supraventricular tachycardia. 3. History of coronary artery disease, the patient is asymptomatic at this point and will continue with his medical management. 4. Cellulitis - this is being managed by the primary team. 5. I will be available on as needed basis and will be happy to see him should any further questions arise. Luke Brown M.D. [place]ia /8:48 AM /9:04 AM
[2016-06-06] MEDS: LISINOPRIL 20 MG TAB PO SCH (12:13)
[2016-06-06] MEDS: BUDESONIDE-FORMOTEROL 160/4.5 MCG INHALER INH SCH ×2 (12:13→20:09)
[2016-06-06] MEDS: DILTIAZEM-CD 180 MG CAP ER PO SCH (12:13)
[2016-06-06] MEDS: ALBUTEROL SULFATE 90 MCG/ACT HFA 8 GM INHALER INH SCH ×4 (12:13→20:09)
[2016-06-06] MEDS: ASPIRIN 81 MG CHEW TAB CHEW SCH (12:13)
[2016-06-06] MEDS: INSULIN DETEMIR 100 UNITS/ML VIAL SQ SCH ×2 (12:14→20:09)
--- NOTE | 2016-06-06 12:43 | EC ---
Study Study Date:06/06/2016 STUDY CONCLUSIONS SUMMARY LEFT VENTRICLE: The cavity size was normal. Wall thickness was normal. Systolic function was moderately to severely reduced. The estimated ejection fraction was in the range of 30% to 35%. Diffuse hypokinesis. If LV function is below 40, please consider prescribing an ACEI or ARB or document rationale for non-use. PROCEDURE DATA STUDY STATUS: Elective. Procedure: Transthoracic echocardiography. Image quality was good. Scanning was performed from the parasternal, apical, and subcostal acoustic windows. Study completion: The patient tolerated the procedure well. Transthoracic echocardiography. M-mode, complete 2D, complete spectral Doppler, and color Doppler. Patient status: Inpatient. CARDIAC ANATOMY LEFT VENTRICLE: The cavity size was normal. Wall thickness was normal. Systolic function was moderately to severely reduced. The estimated ejection fraction was in the range of 30% to 35%. Diffuse hypokinesis. AORTIC VALVE: Trileaflet; normal thickness leaflets. Doppler: Transvalvular velocity was within the normal range. There was no stenosis. No regurgitation. AORTA: The aorta was mildly dilated. Aortic root: The aortic root was normal in size. MITRAL VALVE: Structurally normal valve. Doppler: Transvalvular velocity was within the normal range. There was no evidence for stenosis. Trace regurgitation. LEFT ATRIUM: The atrium was normal in size. RIGHT VENTRICLE: The cavity size was normal. Wall thickness was normal. PULMONIC VALVE: Doppler: Transvalvular velocity was within the normal range. There was no evidence for stenosis. No regurgitation. TRICUSPID VALVE: Structurally normal valve. Doppler: Transvalvular velocity was within the normal range. Trace regurgitation. PULMONARY ARTERY: The main pulmonary artery was normal-sized. Systolic pressure was within the normal range. RIGHT ATRIUM: The atrium was normal in size. PERICARDIUM: There was no pericardial effusion. SYSTEMIC VEINS: Inferior vena cava: The vessel was normal in size. BASIC MEASUREMENTS ADULT NORMAL Left ventricle LV internal dimension, ED, chordal level, *56.3 mm 43-52 PLAX LV internal dimension, ES, chordal level, *49.6 mm 23-38 PLAX Fractional shortening, chordal level, PLAX *12 % >29 LV posterior wall thickness, ED 8.63 mm IVS/LVPW ratio, ED 1.25 <1.3 Ventricular septum Septal thickness, ED 10.8 mm Aortic valve Leaflet separation 23 mm 15-26 Right ventricle RV internal dimension, ED, PLAX 26.6 mm 19-38 BASIC MEASUREMENTS ADULT NORMAL Aortic valve Leaflet separation 23 mm 15-26 Aorta Root diameter, ED *38 mm 20-37 Left atrium Anterior-posterior dimension, ES *42 mm 19-40 LA/aortic root ratio 1.11 LEGEND: Mean values are shown as u=mean value. Asterisk (*) salas values outside specified normal range. Prepared and signed by Shelia Tirado [id number]
--- NOTE | 2016-06-06 14:33 | EKG ---
Date Performed: 06/05/2016 Time Performed: 12:27:24 PTAGE: 76 years EKG: Rhythm is probably sinus tachycardia but with the baseline artifact that cannot be determin ed with accuracy. Nonspecific ST T wave changes are new NONSPECIFIC ST & T-WAVE ABNORMALITY ABNORMAL RHYTHM ECG PREVIOUS TRACING : 01/27/2016 14.34 DOCTOR: Jessika Gudino Interpretating Date/Time 06/06/2016 14:33:01
[2016-06-06] MEDS: ALPRAZolam 0.25 MG TAB PO PRN (14:35)
--- NOTE | 2016-06-06 14:37 | EKG ---
Date Performed: 06/05/2016 Time Performed: 13:22:08 PTAGE: 76 years EKG: SINUS TACHYCARDIA WITH OCCASIONAL VENTRICULAR PREMATURE COMPLEXES NONSPECIFIC ST & T-WAVE A BNORMALITY ABNORMAL RHYTHM ECG Compared to the PREVIOUS TRACING there has been improvement in the SVT, PVCs are new, nonspecific ST T w ave changes are slightly more prominent laterally. Present tracing now shows a questionable old infer ior wall infarct. PREVIOUS TRACIN06/05/16 DOCTOR: Jessika Gudino Interpretating Date/Time 06/06/2016 14:36:24
--- NOTE | 2016-06-06 17:32 | PD.ID.CON ---
History of Present Illness Service ID Consult Requested By Reason for Consult Evaluation and Mment of Sepsis, bilateral UE cellulitis. Primary Care Physician Non-Staff Diagnoses: History of Present Illness is a 76 y/o CM with history of CAD, diabetes who [facility]. Patient reports swelling all over his body. He reports erythema and swelling since last 4 days prior to admission associated with tenderness in UE. Tenderness more pronounced over knuckles where he has areas that are beginning to look fluctuant. He reports he was in a rehab facility and may be received antibiotics there. He was found to have SVT at the time of presentation to ER for which he received Adenosine and Cardizem and then placed on cardizem drip. Cardiology saw the patient. Patient was noted to have signs of sepsis (elevated WBC 27,000 along with tachycardia, source: cellulitis UE). Patient had blood cultures on admission which are negative. ID is consulted for evaluation and Mment of Sepsis and bilateral UE cellulitis. Review of Systems ROS Limitations: Poor Historian Constitutional: COMPLAINS OF: Fever, Chills, DENIES: Diaphoretic episodes, Fatigue, Weight gain, Weight loss, Dizziness, Change in appetite, Night Sweats Endocrine: DENIES: Heat/cold intolerance, Polydipsia, Polyuria, Polyphagia Eyes: DENIES: Blurred vision, Diplopia, Eye inflammation, Eye pain, Vision loss , Photosensitivity, Double Vision Ears, nose, mouth, throat: DENIES: Tinnitus, Hearing loss, Vertigo, Nasal discharge, Oral lesions, Throat pain, Hoarseness, Ear Pain, Running Nose, Epistaxis, Sinus Pain, Toothache, Odynophagia Respiratory: DENIES: Apneas, Cough, Snoring, Wheezing, Hemoptysis, Sputum production, Shortness of breath Cardiovascular: DENIES: Chest pain, Palpitations, Syncope, Dyspnea on Exertion , PND, Lower Extremity Edema, Orthopnea, Claudication Gastrointestinal: DENIES: Abdominal pain, Black stools, Bloody stools, Constipation, Diarrhea, Nausea, Vomiting, Difficulty Swallowing, Anorexia Genitourinary: DENIES: Sexual dysfunction, Urinary frequency, Urinary incontinence, Urgency, Hematuria, Dysuria, Nocturia, Penile Discharge, Testicular Pain, Testicular Swelling Musculoskeletal: DENIES: Joint pain, Muscle aches, Stiffness, Joint Swelling, Back pain, Neck pain Integumentary: COMPLAINS OF: Abnormal pigmentation, DENIES: Nail changes, Pruritus, Rash Hematologic/lymphatic: DENIES: Bruising, Lymphadenopathy Immunologic/allergic: DENIES: Eczema, Urticaria Neurologic: DENIES: Abnormal gait, Headache, Localized weakness, Paresthesias, Seizures, Speech Problems, Tremor, Poor Balance Psychiatric: DENIES: Anxiety, Confusion, Mood changes, Depression, Hallucinations, Agitation, Suicidal Ideation, Homicidal Ideation, Delusions Past Family Social History Allergies: Coded Allergies: Sulfa (Verified Allergy, Severe, Anaphylaxis, 01/27/16) Past Medical History CAD hypertension diabetes mellitus bladder cancer Past Surgical History cardiac stent placement Reported Medications Reported Meds & Active Scripts Active Reported Ascorbic Acid 500 Mg Tab 500 Mg PO DAILY Spiriva Handihaler (Tiotropium Inh) 18 Mcg Cap 18 Mcg INH DAILY 1 capsule = 18 mcg Symbicort Inh (Budesonide/Formoterol Fumarate) 160-4.5 Mcg/Act Aero 2 Puff INH BID Proventil Hfa 6.7 GM Inh (Albuterol Sulfate) 90 Mcg/Act Aer 2 Puff INH QID Novolog Inj (Insulin Aspart) 1,000 Unit/10 Ml Vial 2-6 Units SQ ACHS Max dose at bedtime ( ) units; sugars less than 70,(0) units; sugars 161-220,(2) units; sugars 221-280,(3) units; sugars 281-340,(4) units; sugars 341-400,(5) units; sugars greater than 401+,(6)units Novolog Flexpen Inj (Insulin Aspart) 300 Unit/3 Ml Pen 2 Units SQ TIDAC Theragran-M (Multiple Vitamins W/ Minerals) 1 Tab 1 Tab PO DAILY Luther (Hydrocodone-Acetaminophen) 5-325 mg Tab 1 Tab PO Q4H PRN Milk of Magnesia Liq (Magnesium Hydroxide) 400 Mg/5 Ml Susp 30 Ml PO HS PRN Lisinopril 20 Mg Tab 20 Mg PO DAILY Levemir Flextouch Pen Inj (Insulin Detemir) 300 unit/3 ML Pen 8 Units SQ HS Levemir Flextouch Pen Inj (Insulin Detemir) 300 unit/3 ML Pen 12 Units SQ DAILY Allergy Eye Drops (Ketotifen Fumarate (Ophth)) 0.025 % Abdirashid 1 Drop EACH EYE QID Aspirin Children's (Aspirin) 81 Mg Chew 81 Mg CHEW DAILY Mapap (Acetaminophen) 325 Mg Tab 650 Mg PO Q4HR PRN B-12 (Cyanocobalamin) 1,000 Mcg Cap 1,000 Mcg PO DAILY Ergocalciferol 50,000 Unit Cap 50,000 Units PO WEEKLY ON FRIDAYS Diltiazem ER 24 HR (Diltiazem HCl) 180 Mg Caper 180 Mg PO DAILY Clonidine (Clonidine HCl) 0.1 Mg Tab 0.1 Mg PO Q12HR PRN Cheracol-D Cough Liq (Dextromethorphan-Guaifenesin Liq) 10-100 Mg/5 Ml Liq 5 Ml PO Q6H PRN Albuterol Neb (Albuterol Sulfate) 2.5 Mg/3 Ml Neb 2.5 Mg NEB Q6HR PRN Active Ordered Medications Current Medications Medications (Trade) Dose Ordered Sig/Mitchell Route Start Time Stop Time Status Last Admin IV Flush 2 ml 2 ml UNSCH PRN IVF 06/05/16 12:30 Diltiazem HCl 125 mg/Sodium Chloride 125 ml @ 0 mls/hr TITRATE IV 06/05/16 13:30 06/05/16 14:37 Pharmacy Profile Note 0 ml @ 0 mls/hr UNSCH OTHER 06/05/16 15:45 (Maxipime Inj/NS Inj) 100 ml @ 200 mls/hr Q12H IV 06/06/16 02:00 06/06/16 14:58 (Tylenol) 650 mg Q4H PRN PO 06/05/16 15:45 06/05/16 19:27 (Luther 5-325 Mg) 1 tab Q4H PRN PO 06/05/16 15:45 06/06/16 11:26 (Dilaudid Pf Inj) 0.2 mg Q4H PRN IV PUSH 06/05/16 15:45 06/05/16 16:47 (Zofran Inj) 4 mg Q8HR PRN IV PUSH 06/05/16 15:45 (Proair Hfa Inh) 2 puff QID INH 06/05/16 18:00 06/06/16 12:23 (Aspirin Chew) 81 mg DAILY CHEW 06/06/16 09:00 06/06/16 12:13 (Symbicort 160-4.5 Inh) 2 puff BID INH 06/05/16 21:00 06/06/16 12:13 (Prinivil) 20 mg DAILY PO 06/06/16 09:00 06/06/16 12:13 (Spiriva Inh) 18 mcg DAILY INH 06/06/16 09:00 (Cardizem Cd) 180 mg DAILY PO 06/06/16 09:00 06/06/16 12:13 (Levemir Inj) 8 units HS SQ 06/05/16 21:00 06/05/16 21:48 (Levemir Inj) 12 units DAILY SQ 06/06/16 09:00 06/06/16 12:14 (Clear Eyes Redness Relief 0.012% Opth Soln) 1 drop QID PRN EACH EYE 06/05/16 16:30 (D50w (Vial) Inj) 25 ml UNSCH PRN IV PUSH 06/05/16 15:45 Glucagon 1 mg 1 mg UNSCH PRN OTHER 06/05/16 15:45 (Vancomycin Inj/ NS 500 ml Inj) 515 ml @ 250 mls/hr Q18H IV 06/06/16 06:00 06/06/16 06:45 Miscellaneous Information SPECIFIC LAB TO BE DRAWN:VANCOMYCIN TROUGH DATE TO... ONCE ONCE XX 06/08/16 11:45 06/08/16 11:46 (Xanax) 0.25 mg Q12HR PRN PO 06/06/16 13:00 06/06/16 14:35 Family History reviewed and NC to current ID problem. Social History Smoking and alcohol in the past. Physical Exam Vital Signs Vital Signs Date Time Temp Pulse Resp B/P Pulse Ox O2 Delivery O2 Flow Rate FiO2 06/06/16 12:00 102 06/06/16 11:00 96 06/06/16 11:00 98.9 104 20 145/63 93 06/06/16 08:25 87 18 107/59 93 Nasal Cannula 06/06/16 08:05 92 3.00 06/06/16 06:37 99.2 109 20 107/59 90 Nasal Cannula 3 06/06/16 04:50 99.0 107 20 136/63 94 Room Air 3 06/06/16 00:58 92 18 115/62 95 Nasal Cannula 3 06/05/16 21:50 98.7 100 20 117/56 90 Nasal Cannula 3 06/05/16 20:36 99.2 102 20 89 Nasal Cannula 3 06/05/16 19:13 103.2 119 20 129/61 93 Nasal Cannula 2 06/05/16 19:09 99 Nasal Cannula 2.00 06/05/16 17:54 99 Nasal Cannula 2 06/05/16 17:45 90 20 129/61 99 Nasal Cannula 2 Physical Exam GENERAL: This is a well-nourished, well-developed patient, in no apparent distress. SKIN: No rashes, ecchymoses or lesions. Cool and dry. HEAD: Atraumatic. Normocephalic. No temporal or scalp tenderness. EYES: Pupils equal round and reactive. Extraocular motions intact. No scleral icterus. No injection or drainage. ENT: Nose without bleeding, purulent drainage or septal hematoma. Throat without erythema, tonsillar hypertrophy or exudate. Uvula midline. Airway patent. NECK: Trachea midline. Supple, nontender, no meningeal signs. CARDIOVASCULAR: Hs audible. RESPIRATORY: Clear to auscultation. Breath sounds equal bilaterally. No wheezes , rales, or rhonchi. GASTROINTESTINAL: Abdomen soft, non-tender, nondistended. No hepato-splenomegaly , or palpable masses. No guarding. MUSCULOSKELETAL: Bilateral UE edema associated with erythema. On the knuckles of both hands an area of tenderness,fluctuance noted. NEUROLOGICAL: Awake and alert. Grossly non focal Psych: cooperative IV line sites with no e/o infection. Laboratory Laboratory Tests Test 06/05/16 06/05/16 06/06/16 06/06/16 17:35 18:50 00:30 03:40 Lactic Acid Level 1.8 1.2 Troponin I 0.15 0.12 Sodium Level 140 Potassium Level 3.5 Chloride Level 100 Carbon Dioxide Level 34.0 Anion Gap 6 Blood Urea Nitrogen 28 Creatinine 1.28 Estimat Glomerular Filtration 55 Rate Random Glucose 142 Uric Acid 5.8 Calcium Level 7.1 Protein Corrected Calcium 8.6 Total Protein 4.4 White Blood Count 18.4 Red Blood Count 3.01 Hemoglobin 8.5 Hematocrit 26.3 Mean Corpuscular Volume 87.6 Mean Corpuscular Hemoglobin 28.4 Mean Corpuscular Hemoglobin 32.4 Concent Red Cell Distribution Width 25.7 Platelet Count 115 Mean Platelet Volume 8.3 Neutrophils (%) (Auto) 91.8 Lymphocytes (%) (Auto) 3.2 Monocytes (%) (Auto) 4.7 Eosinophils (%) (Auto) 0.0 Basophils (%) (Auto) 0.3 Neutrophils # (Auto) 16.9 Lymphocytes # (Auto) 0.6 Monocytes # (Auto) 0.9 Eosinophils # (Auto) 0.0 Basophils # (Auto) 0.1 CBC Comment AUTO DIFF Differential Comment AUTO DIFF CONFIRMED Platelet Estimate LOW Platelet Morphology Comment NORMAL Basophilic Stippling FAINT Target Cells 1+ Keratocytes OCC Date/Time Procedure Status Source Growth 06/05/16 13:25 Aerobic Blood Culture - Preliminary Resulted Blood Peripheral NO GROWTH IN 1 DAY 06/05/16 13:25 Anaerobic Blood Culture - Preliminary Resulted Blood Peripheral NO GROWTH IN 1 DAY Result Diagram: 06/06/16 0340 06/06/16 0030 Imaging Last Impressions Chest X-Ray 06/05/16 1223 Signed Impressions: Service Date/Time: June 12:50 - CONCLUSION: Hyperinflation which can be seen with COPD. No acute cardiopulmonary disease and no evidence for an infiltrate. Mani Lopez MD Upper Extremity Ultrasound 06/05/16 0000 Signed Impressions: Service Date/Time: June 16:01 - CONCLUSION: No evidence of upper extremity DVT on the right or left. Matt Sapp MD Elbow X-Ray 06/05/16 0000 Signed Impressions: Service Date/Time: June 17:02 - CONCLUSION: Minimal arthritic findings. Prominent soft tissue swelling of the olecranon process indicating possible olecranon bursitis. Matt Sapp MD Assessment and Plan Assessment and Plan Sepsis present on admission Bilateral UE cellulitis ? abscess on dorsal aspect. CAD DM HTN Recs Continue Vanco IV (target 10-15) DC Cefepime IV Follow clinically. If any pipe changer the weekend please call who is covering for me. Addendum: Right olecranon bursitis. Roya Velez MD Jun 06, 2016 17:31
[2016-06-06] MEDS: ZOLPIDEM TARTRATE 5 MG TAB PO PRN (21:46)
[2016-06-07] VITALS (25 sets, daily range): BP systolic 107–130; BP diastolic 52–63; PULSE 82–116; RESP 20–22; TEMP 98.2–98.7; O2SAT 92–100
[2016-06-07] MEDS: VANCOMYCIN INJ 1,500 MG in SODIUM CHLORID 0.9% 500 ML INJ 500 ML IV SCH ×2 (00:05→16:26)
[2016-06-07] MEDS: ACETAMINOPHEN/HYDROcodone 325 MG/5 MG TAB PO PRN ×5 (00:20→20:43)
[2016-06-07] MEDS: INSULIN ASPART SUPPLEMENTAL SCALE SQ SCH ×4 (06:02→20:46)
[2016-06-07 07:34] LABS: AUTOMATED NEUTROPHIL # 9.3 TH/MM3 (1.8-7.7); BASOPHIL % 0.3 % (0.0-2.0); HEMATOCRIT 22.7 % (39.0-51.0); LYMPH % 5.8 % (9.0-44.0); LYMPHOCYTE # 0.6 TH/MM3 (1.0-4.8); MEAN CELL VOLUME 87.6 FL (80.0-100.0); MEAN CORPUSCULAR HEMOGLOBIN 28.9 PG (27.0-34.0); MONO % 5.7 % (0.0-8.0); NEUT % 88.2 % (16.0-70.0); PLATELET COUNT 97 TH/MM3 (150-450); RED BLOOD COUNT 2.59 MIL/MM3 (4.50-5.90); RED CELL DISTRIBUTION WIDTH 27.1 % (11.6-17.2); WHITE BLOOD COUNT 10.6 TH/MM3 (4.0-11.0)
[2016-06-07] MEDS: DILTIAZEM-CD 180 MG CAP ER PO SCH (07:54)
[2016-06-07] MEDS: ASPIRIN 81 MG CHEW TAB CHEW SCH (07:54)
[2016-06-07] MEDS: LISINOPRIL 20 MG TAB PO SCH (07:54)
[2016-06-07] MEDS: INSULIN DETEMIR 100 UNITS/ML VIAL SQ SCH ×2 (07:54→20:46)
[2016-06-07] MEDS: ALBUTEROL SULFATE 90 MCG/ACT HFA 8 GM INHALER INH SCH ×4 (07:55→20:46)
[2016-06-07] MEDS: BUDESONIDE-FORMOTEROL 160/4.5 MCG INHALER INH SCH ×2 (07:55→20:46)
[2016-06-07] MEDS: TIOTROPIUM BROMIDE 18 MCG INH INH SCH (07:56)
[2016-06-07 07:57] LABS: HEMO FLAGS AUTO DIFF
--- NOTE | 2016-06-07 08:49 | HHI.PR ---
Subjective Remarks no fever today. pain to the right hand is fairly controlled. no new complaints. Objective Vitals Vital Signs Date Time Temp Pulse Resp B/P Pulse Ox O2 Delivery O2 Flow Rate FiO2 06/07/16 06:00 96 06/07/16 05:00 92 06/07/16 04:00 89 06/07/16 04:00 Nasal Cannula 3.00 06/07/16 04:00 98.2 89 22 107/63 97 06/07/16 03:00 98 06/07/16 02:00 103 06/07/16 01:00 100 06/07/16 00:00 107 06/07/16 00:00 98.4 107 22 111/61 95 06/07/16 00:00 Nasal Cannula 3.00 06/06/16 23:00 106 06/06/16 22:00 100 06/06/16 21:00 111 06/06/16 20:00 117 06/06/16 20:00 99.0 117 22 104/53 92 06/06/16 18:00 98 06/06/16 17:50 93 Nasal Cannula 3.00 06/06/16 15:00 99.1 90 20 142/55 93 06/06/16 12:00 102 06/06/16 11:00 96 06/06/16 11:00 98.9 104 20 145/63 93 I/O 06/06/16 06/06/16 06/06/16 06/07/16 06/07/16 06/07/16 07:00 15:00 23:00 07:00 15:00 23:00 Intake Total 340 ml 740 ml Output Total 200 ml 600 ml Balance 140 ml 140 ml Intake Oral 240 ml 240 ml IV Total 100 ml 500 ml Output Urine Total 200 ml 600 ml # Bowel Movements 0 0 Result Diagram: 06/07/16 0650 06/06/16 0030 Imaging Last Impressions Chest X-Ray 06/05/16 1223 Signed Impressions: Service Date/Time: June 12:50 - CONCLUSION: Hyperinflation which can be seen with COPD. No acute cardiopulmonary disease and no evidence for an infiltrate. Mani Lopez MD Upper Extremity Ultrasound 06/05/16 0000 Signed Impressions: Service Date/Time: June 16:01 - CONCLUSION: No evidence of upper extremity DVT on the right or left. Matt Sapp MD Elbow X-Ray 06/05/16 0000 Signed Impressions: Service Date/Time: June 17:02 - CONCLUSION: Minimal arthritic findings. Prominent soft tissue swelling of the olecranon process indicating possible olecranon bursitis. Matt Sapp MD Objective Remarks GENERAL: This is a well-nourished, well-developed patient, in no apparent distress. CARDIOVASCULAR: Regular rate and regular rhythm without murmurs, gallops, or rubs. RESPIRATORY: Clear to auscultation. Breath sounds equal bilaterally. No wheezes , rales, or rhonchi. GASTROINTESTINAL: Abdomen soft, non-tender, nondistended. Normal, active bowel sounds MUSCULOSKELETAL: edema , erythema and pain to the right upper extremity has improved- bilateral pedal edema noted. NEURO: Alert & Oriented x4 to person, place, time, situation. Moves all ext x4 Procedures none Medications and IVs Current Medications IV Flush (NS Flush) 2 ml UNSCH PRN IVF FLUSH AFTER USING IV ACCESS; Start at 12:30 Adenosine (Adenocard Inj) 6 mg ONCE ONCE IV PUSH Last administered on 13:36; Start 06/05/16 at 12:30; Stop 06/05/16 at 12:31; Status DC Adenosine (Adenocard Inj) 12 mg ONCE ONCE IV PUSH Last administered on 13:37; Start 06/05/16 at 12:30; Stop 06/05/16 at 12:31; Status DC Adenosine (Adenocard Inj) 18 mg STK-MED ONCE .ROUTE ; Start 06/05/16 at 12:29; Stop 06/05/16 at 12:30; Status DC Adenosine (Adenocard Inj) 6 mg STK-MED ONCE .ROUTE ; Start 06/05/16 at 12:31; Stop 06/05/16 at 12:32; Status DC Adenosine (Adenocard Inj) 6 mg ONCE ONCE IV PUSH ; Start 06/05/16 at 12:45; Stop 06/05/16 at 12:46; Status DC Adenosine (Adenocard Inj) 12 mg ONCE ONCE IV PUSH ; Start 06/05/16 at 12:45; Stop 06/05/16 at 12:46; Status DC Diltiazem HCl (Cardizem Inj) 25 mg STK-MED ONCE .ROUTE ; Start 06/05/16 at 12:41 ; Stop 06/05/16 at 12:42; Status DC Diltiazem HCl (Cardizem Inj) 25 mg ONCE ONCE IV Last administered on 06/05/16 13:38; Start 06/05/16 at 13:15; Stop 06/05/16 at 13:16; Status DC Diltiazem HCl 25 mg 25 mg STK-MED ONCE .ROUTE Last administered on 06/05/16 13: 37; Start 06/05/16 at 13:02; Stop 06/05/16 at 13:03; Status DC Vancomycin HCl 1200 mg/Sodium Chloride 262 ml @ 250 mls/hr ONCE ONCE IV Last administered on 06/05/16 14:45; Start 06/05/16 at 13:15; Stop 06/05/16 at 14:17; Status DC Cefepime HCl 2000 mg/Sodium Chloride 100 ml @ 200 mls/hr ONCE ONCE IV Last administered on 06/05/16 16:13; Start 06/05/16 at 13:15; Stop 06/05/16 at 13:44; Status DC Diltiazem HCl/ Sodium Chloride (Cardizem Inj/NS Inj) 125 ml @ 0 mls/hr TITRATE IV Last administered on 06/05/16 14:37; Start 06/05/16 at 13:30 Diltiazem HCl (Cardizem Inj) 20 mg ONCE ONCE IV Last administered on 06/05/16 14:35; Start 06/05/16 at 14:15; Stop 06/05/16 at 14:16; Status DC Diltiazem HCl 20 mg 20 mg ONCE ONCE IV Last administered on 06/05/16 16:16; Start 06/05/16 at 14:15; Stop 06/05/16 at 14:16; Status DC Pharmacy Profile Note 0 ml @ 0 mls/hr UNSCH OTHER ; Start 06/05/16 at 15:45 Cefepime HCl/ Sodium Chloride (Maxipime Inj/NS Inj) 100 ml @ 200 mls/hr Q12H IV Last administered on 06/06/16 14:58; Start 06/06/16 at 02:00; Stop 06/06/16 at 19:04; Status DC Acetaminophen (Tylenol) 650 mg Q4H PRN PO FEVER/ PAIN 1-5 Last administered on 06/05/16 19:27; Start 06/05/16 at 15:45 Acetaminophen/ Hydrocodone Bitart (Sigel 5-325 Mg) 1 tab Q4H PRN PO PAIN 6-10 Last administered on 06/07/16 05:10; Start 06/05/16 at 15:45 Hydromorphone HCl (Dilaudid Pf Inj) 0.2 mg Q4H PRN IV PUSH BREAKTHROUGH PAIN Last administered on 06/05/16 16:47; Start 06/05/16 at 15:45 Ondansetron HCl (Zofran Inj) 4 mg Q8HR PRN IV PUSH NAUSEA; Start 06/05/16 at 15: 45 Albuterol Sulfate (Proair Hfa Inh) 2 puff QID INH Last administered on 07:55; Start 06/05/16 at 18:00 Aspirin (Aspirin Chew) 81 mg DAILY CHEW Last administered on 06/07/16 07:54; Start 06/06/16 at 09:00 Budesonide/ Formoterol Fumarate (Symbicort 160-4.5 Inh) 2 puff BID INH Last administered on 06/07/16 07:55; Start 06/05/16 at 21:00 Lisinopril (Prinivil) 20 mg DAILY PO Last administered on 06/07/16 07:54; Start 06/06/16 at 09:00 Tiotropium [place] (Spiriva Inh) 18 mcg DAILY INH ; Start 06/06/16 at 09:00 Diltiazem HCl (Cardizem Cd) 180 mg DAILY PO Last administered on 06/07/16 07:54 ; Start 06/06/16 at 09:00 Insulin Detemir (Levemir Inj) 8 units HS SQ Last administered on 06/06/16 20:09 ; Start 06/05/16 at 21:00 Insulin Detemir (Levemir Inj) 12 units DAILY SQ Last administered on 06/07/16 07:54; Start 06/06/16 at 09:00 Naphazoline HCl (Clear Eyes Redness Relief 0.012% Opth Soln) 1 drop QID PRN EACH EYE EYE ITCH; Start 06/05/16 at 16:30 Albuterol Sulfate (Albuterol Neb) 0.63 mg Q6HR NEB PRN NEB SHORTNESS OF BREATH ; Start 06/05/16 at 15:45 Dextrose (D50w (Vial) Inj) 25 ml UNSCH PRN IV PUSH HYPOGLYCEMIA-SEE COMMENTS; Start 06/05/16 at 15:45 Glucagon (Glucagon Inj) 1 mg UNSCH PRN OTHER HYPOGLYCEMIA-SEE COMMENTS; Start 06/05/16 at 15:45 Insulin Aspart 1 1 ACHS SLIDING SCALE SQ Last administered on 06/05/16 20:56; Start 06/05/16 at 16:00 Vancomycin HCl/ Sodium Chloride (Vancomycin Inj/ NS 500 ml Inj) 515 ml @ 250 mls/hr Q18H IV Last administered on 06/07/16 00:05; Start 06/06/16 at 06:00 Miscellaneous Information SPECIFIC LAB TO BE DRAWN:VANCOMYCIN TROUGH DATE TO... ONCE ONCE XX ; Start 06/08/16 at 11:45; Stop 06/08/16 at 11:46 Sodium Chloride (NS 500 ml Inj) 500 ml @ 500 mls/hr BOLUS ONCE IV Last administered on 06/05/16 20:36; Start 06/05/16 at 20:15; Stop 06/05/16 at 21:14; Status DC Albuterol/ Ipratropium (Duoneb Neb) 1 ampule Q4HR NEB PRN NEB SOB/WHEEZING; Start 06/05/16 at 20:30 Alprazolam (Xanax) 0.25 mg Q12HR PRN PO ANXIETY Last administered on 06/06/16 14:35; Start 06/06/16 at 13:00 Zolpidem Tartrate (Ambien) 5 mg HS PRN PO SLEEP Last administered on 06/06/16 21:46; Start 06/06/16 at 21:00 A/P Assessment and Plan A/P - severe sepsis due to cellulitis of the right upper extremity- improved continue with broad-spectrum IV antibiotics- keep the right hand elevated- continue pain control venous doppler of the upper extremities with no DVT-XR of the right elbow with possible olecranon bursitis- blood cultures negative- ID consult appreciated. -SVT- due to sepsis- - resumed po cardizem- - cardiology evaluation pending. -ischemic cardiomyopathy with mild levation of troponin- s/p stent placement; continue aspirin and lisinopril elevated troponin likely due to tachycardia/ sepsis echo with EF 35% cardiology consult appreciated. -diabetes mellitus; resumed home insulin regimen- accu-check with SSI -COPD; resumed Symbicort and Spiriva- neb treatment as needed of note the patient is on home oxygen -anemia of chronic disease- H/H has further dropped - repeat H/H this afternoon and PRBC transfusion if further drop in H/H- check iron panel and stool for blood. -DVT prophylaxis ; SCD's-no chemical prophylaxis for now due to anemia. -consult PT/OT Pankaj Booth MD Jun 07, 2016 08:49
[2016-06-07 11:33] LABS: OVALOCYTES 1+ (NORMAL); PLATELET ESTIMATE SMEAR LOW (NORMAL); PLATELET MORPHOLOGY NORMAL (NORMAL); SCAN/DIFF AUTO DIFF CONFIRMED; TARGET CELLS 2+ (NORMAL)
[2016-06-07 15:49] LABS: HEMATOCRIT 24.1 % (39.0-51.0)
[2016-06-07 16:11] LABS: TRANSFERRIN IRON PROFILE 100 MG/DL (200-360)
[2016-06-07 16:14] LABS: FERRITIN 401 NG/ML (26-388)
[2016-06-07] MEDS: ZOLPIDEM TARTRATE 5 MG TAB PO PRN (20:42)
[2016-06-08] VITALS (29 sets, daily range): BP systolic 111–141; BP diastolic 57–68; PULSE 88–120; RESP 20–22; TEMP 97.8–98.5; O2SAT 93–96
[2016-06-08] MEDS: ACETAMINOPHEN/HYDROcodone 325 MG/5 MG TAB PO PRN ×4 (02:22→20:12)
[2016-06-08 05:35] LABS: AUTOMATED NEUTROPHIL # 7.5 TH/MM3 (1.8-7.7); BASOPHIL # 0.1 TH/MM3 (0-0.2); BASOPHIL % 0.7 % (0.0-2.0); EOSINOPHIL % 0.1 % (0.0-4.0); HEMATOCRIT 21.7 % (39.0-51.0); LYMPH % 6.8 % (9.0-44.0); LYMPHOCYTE # 0.6 TH/MM3 (1.0-4.8); MEAN CELL VOLUME 88.1 FL (80.0-100.0); MEAN CORPUSCULAR HEMOGLOBIN 29.2 PG (27.0-34.0); MEAN CORPUSCULAR HGB CONC 33.1 % (32.0-36.0); MONO % 5.6 % (0.0-8.0); NEUT % 86.8 % (16.0-70.0); PLATELET COUNT 126 TH/MM3 (150-450); RED BLOOD COUNT 2.46 MIL/MM3 (4.50-5.90); RED CELL DISTRIBUTION WIDTH 28.2 % (11.6-17.2); WHITE BLOOD COUNT 8.7 TH/MM3 (4.0-11.0)
[2016-06-08] MEDS: INSULIN ASPART SUPPLEMENTAL SCALE SQ SCH ×4 (05:46→20:16)
[2016-06-08 05:51] LABS: HEMO FLAGS AUTO DIFF
[2016-06-08] MEDS: DILTIAZEM-CD 180 MG CAP ER PO SCH (08:27)
[2016-06-08] MEDS: LISINOPRIL 20 MG TAB PO SCH (08:27)
[2016-06-08] MEDS: ASPIRIN 81 MG CHEW TAB CHEW SCH (08:28)
[2016-06-08] MEDS: BUDESONIDE-FORMOTEROL 160/4.5 MCG INHALER INH SCH ×2 (08:29→20:14)
[2016-06-08] MEDS: ALBUTEROL SULFATE 90 MCG/ACT HFA 8 GM INHALER INH SCH ×4 (08:29→20:13)
[2016-06-08] MEDS: INSULIN DETEMIR 100 UNITS/ML VIAL SQ SCH ×2 (08:29→20:13)
--- NOTE | 2016-06-08 08:38 | HHI.PR ---
Subjective Remarks in no acute distress. afebrile. still tachycardic. has some pain to the right upper extremity. drop in H/H noted. d/w the RN. Objective Vitals Vital Signs Date Time Temp Pulse Resp B/P Pulse Ox O2 Delivery O2 Flow Rate FiO2 06/08/16 06:00 93 06/08/16 05:00 91 06/08/16 04:00 99 06/08/16 04:00 Nasal Cannula 5.00 06/08/16 04:00 98.1 99 22 111/62 94 06/08/16 03:00 94 06/08/16 02:00 100 06/08/16 01:00 97 06/08/16 00:00 Nasal Cannula 5.00 06/08/16 00:00 98.4 105 20 120/57 93 06/08/16 00:00 105 06/07/16 23:00 98 06/07/16 22:00 101 06/07/16 21:00 113 06/07/16 20:00 103 06/07/16 20:00 Nasal Cannula 5.00 06/07/16 20:00 98.2 103 22 129/59 92 06/07/16 18:00 93 06/07/16 17:39 100 Nasal Cannula 3.00 06/07/16 17:00 98 06/07/16 16:00 114 06/07/16 15:00 100 06/07/16 15:00 98.3 82 20 128/57 94 06/07/16 14:00 116 06/07/16 13:00 98 06/07/16 12:39 93 Nasal Cannula 3.00 06/07/16 12:00 98 06/07/16 11:00 98.7 98 20 110/52 95 06/07/16 11:00 94 06/07/16 10:00 116 06/07/16 09:00 100 I/O 06/07/16 06/07/16 06/07/16 06/08/16 06/08/16 06/08/16 07:00 15:00 23:00 07:00 15:00 23:00 Intake Total 740 ml 600 ml 980 ml Output Total 600 ml 650 ml Balance 140 ml 600 ml 330 ml Intake Oral 240 ml 600 ml 480 ml IV Total 500 ml 500 ml Output Urine Total 600 ml 650 ml # Bowel Movements 0 0 Result Diagram: 06/08/16 0505 06/06/16 0030 Imaging Last Impressions Chest X-Ray 06/05/16 1223 Signed Impressions: Service Date/Time: June 12:50 - CONCLUSION: Hyperinflation which can be seen with COPD. No acute cardiopulmonary disease and no evidence for an infiltrate. Mani Lopez MD Upper Extremity Ultrasound 06/05/16 0000 Signed Impressions: Service Date/Time: June 16:01 - CONCLUSION: No evidence of upper extremity DVT on the right or left. Matt Sapp MD Elbow X-Ray 06/05/16 0000 Signed Impressions: Service Date/Time: June 17:02 - CONCLUSION: Minimal arthritic findings. Prominent soft tissue swelling of the olecranon process indicating possible olecranon bursitis. Matt Sapp MD Objective Remarks GENERAL: This is a well-nourished, well-developed patient, in no apparent distress. CARDIOVASCULAR: Regular rate and regular rhythm without murmurs, gallops, or rubs. RESPIRATORY: Clear to auscultation. Breath sounds equal bilaterally. No wheezes , rales, or rhonchi. GASTROINTESTINAL: Abdomen soft, non-tender, nondistended. Normal, active bowel sounds MUSCULOSKELETAL: edema , erythema and pain to the right upper extremity - bilateral pedal edema noted. NEURO: Alert & Oriented x4 to person, place, time, situation. Moves all ext x4 Procedures none Medications and IVs Current Medications IV Flush (NS Flush) 2 ml UNSCH PRN IVF FLUSH AFTER USING IV ACCESS; Start at 12:30 Adenosine (Adenocard Inj) 6 mg ONCE ONCE IV PUSH Last administered on 13:36; Start 06/05/16 at 12:30; Stop 06/05/16 at 12:31; Status DC Adenosine (Adenocard Inj) 12 mg ONCE ONCE IV PUSH Last administered on 13:37; Start 06/05/16 at 12:30; Stop 06/05/16 at 12:31; Status DC Adenosine (Adenocard Inj) 18 mg STK-MED ONCE .ROUTE ; Start 06/05/16 at 12:29; Stop 06/05/16 at 12:30; Status DC Adenosine (Adenocard Inj) 6 mg STK-MED ONCE .ROUTE ; Start 06/05/16 at 12:31; Stop 06/05/16 at 12:32; Status DC Adenosine (Adenocard Inj) 6 mg ONCE ONCE IV PUSH ; Start 06/05/16 at 12:45; Stop 06/05/16 at 12:46; Status DC Adenosine (Adenocard Inj) 12 mg ONCE ONCE IV PUSH ; Start 06/05/16 at 12:45; Stop 06/05/16 at 12:46; Status DC Diltiazem HCl (Cardizem Inj) 25 mg STK-MED ONCE .ROUTE ; Start 06/05/16 at 12:41 ; Stop 06/05/16 at 12:42; Status DC Diltiazem HCl (Cardizem Inj) 25 mg ONCE ONCE IV Last administered on 06/05/16 13:38; Start 06/05/16 at 13:15; Stop 06/05/16 at 13:16; Status DC Diltiazem HCl 25 mg 25 mg STK-MED ONCE .ROUTE Last administered on 06/05/16 13: 37; Start 06/05/16 at 13:02; Stop 06/05/16 at 13:03; Status DC Vancomycin HCl 1200 mg/Sodium Chloride 262 ml @ 250 mls/hr ONCE ONCE IV Last administered on 06/05/16 14:45; Start 06/05/16 at 13:15; Stop 06/05/16 at 14:17; Status DC Cefepime HCl 2000 mg/Sodium Chloride 100 ml @ 200 mls/hr ONCE ONCE IV Last administered on 06/05/16 16:13; Start 06/05/16 at 13:15; Stop 06/05/16 at 13:44; Status DC Diltiazem HCl/ Sodium Chloride (Cardizem Inj/NS Inj) 125 ml @ 0 mls/hr TITRATE IV Last administered on 06/05/16 14:37; Start 06/05/16 at 13:30 Diltiazem HCl (Cardizem Inj) 20 mg ONCE ONCE IV Last administered on 06/05/16 14:35; Start 06/05/16 at 14:15; Stop 06/05/16 at 14:16; Status DC Diltiazem HCl 20 mg 20 mg ONCE ONCE IV Last administered on 06/05/16 16:16; Start 06/05/16 at 14:15; Stop 06/05/16 at 14:16; Status DC Pharmacy Profile Note 0 ml @ 0 mls/hr UNSCH OTHER ; Start 06/05/16 at 15:45 Cefepime HCl/ Sodium Chloride (Maxipime Inj/NS Inj) 100 ml @ 200 mls/hr Q12H IV Last administered on 06/06/16 14:58; Start 06/06/16 at 02:00; Stop 06/06/16 at 19:04; Status DC Acetaminophen (Tylenol) 650 mg Q4H PRN PO FEVER/ PAIN 1-5 Last administered on 06/05/16 19:27; Start 06/05/16 at 15:45 Acetaminophen/ Hydrocodone Bitart ([place] 5-325 Mg) 1 tab Q4H PRN PO PAIN 6-10 Last administered on 06/08/16 02:22; Start 06/05/16 at 15:45 Hydromorphone HCl (Dilaudid Pf Inj) 0.2 mg Q4H PRN IV PUSH BREAKTHROUGH PAIN Last administered on 06/05/16 16:47; Start 06/05/16 at 15:45 Ondansetron HCl (Zofran Inj) 4 mg Q8HR PRN IV PUSH NAUSEA; Start 06/05/16 at 15: 45 Albuterol Sulfate (Proair Hfa Inh) 2 puff QID INH Last administered on 20:46; Start 06/05/16 at 18:00 Aspirin (Aspirin Chew) 81 mg DAILY CHEW Last administered on 06/07/16 07:54; Start 06/06/16 at 09:00 Budesonide/ Formoterol Fumarate (Symbicort 160-4.5 Inh) 2 puff BID INH Last administered on 06/07/16 20:46; Start 06/05/16 at 21:00 Lisinopril (Prinivil) 20 mg DAILY PO Last administered on 06/07/16 07:54; Start 06/06/16 at 09:00 Tiotropium [place] (Spiriva Inh) 18 mcg DAILY INH ; Start 06/06/16 at 09:00 Diltiazem HCl (Cardizem Cd) 180 mg DAILY PO Last administered on 06/07/16 07:54 ; Start 06/06/16 at 09:00 Insulin Detemir (Levemir Inj) 8 units HS SQ Last administered on 06/06/16 20:09 ; Start 06/05/16 at 21:00 Insulin Detemir (Levemir Inj) 12 units DAILY SQ Last administered on 06/07/16 07:54; Start 06/06/16 at 09:00 Naphazoline HCl (Clear Eyes Redness Relief 0.012% Opth Soln) 1 drop QID PRN EACH EYE EYE ITCH; Start 06/05/16 at 16:30 Albuterol Sulfate (Albuterol Neb) 0.63 mg Q6HR NEB PRN NEB SHORTNESS OF BREATH ; Start 06/05/16 at 15:45 Dextrose (D50w (Vial) Inj) 25 ml UNSCH PRN IV PUSH HYPOGLYCEMIA-SEE COMMENTS; Start 06/05/16 at 15:45 Glucagon (Glucagon Inj) 1 mg UNSCH PRN OTHER HYPOGLYCEMIA-SEE COMMENTS; Start 06/05/16 at 15:45 Insulin Aspart 1 1 ACHS SLIDING SCALE SQ Last administered on 06/05/16 20:56; Start 06/05/16 at 16:00 Vancomycin HCl/ Sodium Chloride (Vancomycin Inj/ NS 500 ml Inj) 515 ml @ 250 mls/hr Q18H IV Last administered on 06/07/16 16:26; Start 06/06/16 at 06:00 Miscellaneous Information SPECIFIC LAB TO BE DRAWN:VANCOMYCIN TROUGH DATE TO... ONCE ONCE XX ; Start 06/08/16 at 11:45; Stop 06/08/16 at 11:46 Sodium Chloride (NS 500 ml Inj) 500 ml @ 500 mls/hr BOLUS ONCE IV Last administered on 06/05/16 20:36; Start 06/05/16 at 20:15; Stop 06/05/16 at 21:14; Status DC Albuterol/ Ipratropium (Duoneb Neb) 1 ampule Q4HR NEB PRN NEB SOB/WHEEZING; Start 06/05/16 at 20:30 Alprazolam (Xanax) 0.25 mg Q12HR PRN PO ANXIETY Last administered on 06/06/16 14:35; Start 06/06/16 at 13:00 Zolpidem Tartrate (Ambien) 5 mg HS PRN PO SLEEP Last administered on 06/07/16t 20:42; Start 06/06/16 at 21:00 A/P Assessment and Plan A/P - severe sepsis due to cellulitis of the right upper extremity- continue with broad-spectrum IV antibiotics- keep the right hand elevated- continue pain control venous doppler of the upper extremities with no DVT-XR of the right elbow with possible olecranon bursitis- blood cultures negative- ID consult appreciated. -SVT- due to sepsis- - resumed po cardizem- - cardiology consult appreciated. -ischemic cardiomyopathy with mild levation of troponin- s/p stent placement; continue aspirin and lisinopril elevated troponin likely due to tachycardia/ sepsis echo with EF 35% cardiology consult appreciated. -diabetes mellitus; resumed home insulin regimen- accu-check with SSI -COPD; resumed Symbicort and Spiriva- neb treatment as needed of note the patient is on home oxygen -anemia of chronic disease- H/H has further dropped -will transfuse with PRBC in light of CAD and tachycardia- will monitor H/H- stool occult blood pending- -DVT prophylaxis ; SCD's-no chemical prophylaxis for now due to anemia. -consulted PT/OT Pankaj Booth MD Jun 08, 2016 08:38
[2016-06-08] MEDS ORDERED: FUROSEMIDE 20 MG/2 ML VIAL IV PUSH ONE (08:45)
[2016-06-08] MEDS: TIOTROPIUM BROMIDE 18 MCG INH INH SCH (09:00)
[2016-06-08 10:27] LABS: BANDS 1 % (0-6); NEUTROPHIL # MANUAL DIFF 7.7 TH/MM3 (1.8-7.7); OVALOCYTES 1+ (NORMAL); PLATELET ESTIMATE SMEAR LOW (NORMAL); PLATELET MORPHOLOGY NORMAL (NORMAL); POLYS (SEG NEUTROPHILS) 87 % (16-70); SCAN/DIFF FINAL DIFF MANUAL; TARGET CELLS 2+ (NORMAL); TEARDROP RBCS 1+ (NORMAL); WBC DIFF SAMPLE 100
[2016-06-08] MEDS ORDERED: PHARMACY ORDERED LAB XX ONE (11:45)
[2016-06-08] MEDS: VANCOMYCIN INJ 1,500 MG in SODIUM CHLORID 0.9% 500 ML INJ 500 ML IV SCH (12:00)
[2016-06-08] MEDS: ALPRAZolam 0.25 MG TAB PO PRN (15:43)
[2016-06-08] MEDS ORDERED: FUROSEMIDE 40 MG/4 ML VIAL ONE (17:02)
[2016-06-08] MEDS: ZOLPIDEM TARTRATE 5 MG TAB PO PRN (20:12)
[2016-06-09] VITALS (14 sets, daily range): BP systolic 111–159; BP diastolic 68–72; PULSE 84–108; RESP 22–26; TEMP 97.7–98.6; O2SAT 92–98
[2016-06-09] MEDS: ALPRAZolam 0.25 MG TAB PO PRN ×2 (04:25→23:41)
[2016-06-09] MEDS ORDERED: PHARMACY ORDERED LAB XX ONE (05:45)
[2016-06-09] MEDS: INSULIN ASPART SUPPLEMENTAL SCALE SQ SCH ×4 (06:09→20:43)
[2016-06-09] MEDS: VANCOMYCIN INJ 1,500 MG in SODIUM CHLORID 0.9% 500 ML INJ 500 ML IV SCH (06:09)
[2016-06-09 08:27] LABS: MEAN CELL VOLUME 85.9 FL (80.0-100.0); MEAN CORPUSCULAR HEMOGLOBIN 29.6 PG (27.0-34.0); MEAN CORPUSCULAR HGB CONC 34.4 % (32.0-36.0); PLATELET COUNT 94 TH/MM3 (150-450); RED BLOOD COUNT 3.15 MIL/MM3 (4.50-5.90); RED CELL DISTRIBUTION WIDTH 23.3 % (11.6-17.2); WHITE BLOOD COUNT 5.1 TH/MM3 (4.0-11.0)
[2016-06-09 08:29] LABS: HEMO FLAGS AUTO DIFF
[2016-06-09 08:55] LABS: ALKALINE PHOSPHATASE 39 U/L (45-117); ALT (GPT) 19 U/L (12-78); ANION GAP 7 MEQ/L (5-15); AST (GOT) 18 U/L (15-37); BICARBONATE 30.7 MEQ/L (21.0-32.0); BLOOD UREA NITROGEN 17 MG/DL (7-18); CHLORIDE 104 MEQ/L (98-107); GLOMERULAR FILTRATION RATE 122 ML/MIN (>89); POTASSIUM 3.4 MEQ/L (3.5-5.1); SODIUM (NA) 142 MEQ/L (136-145); TOTAL BILIRUBIN ADULT 0.7 MG/DL (0.2-1.0)
[2016-06-09] MEDS: ASPIRIN 81 MG CHEW TAB CHEW SCH (08:59)
[2016-06-09] MEDS: DILTIAZEM-CD 180 MG CAP ER PO SCH (08:59)
[2016-06-09] MEDS: INSULIN DETEMIR 100 UNITS/ML VIAL SQ SCH ×2 (09:00→20:35)
[2016-06-09] MEDS: ACETAMINOPHEN/HYDROcodone 325 MG/5 MG TAB PO PRN ×3 (09:00→20:34)
[2016-06-09] MEDS: TIOTROPIUM BROMIDE 18 MCG INH INH SCH (09:00)
[2016-06-09] MEDS: BUDESONIDE-FORMOTEROL 160/4.5 MCG INHALER INH SCH ×2 (09:00→20:35)
[2016-06-09] MEDS: ALBUTEROL SULFATE 90 MCG/ACT HFA 8 GM INHALER INH SCH (09:00)
[2016-06-09] MEDS: LISINOPRIL 20 MG TAB PO SCH (09:00)
[2016-06-09 09:25] LABS: NEUTROPHIL # MANUAL DIFF 4.3 TH/MM3 (1.8-7.7); POLYS (SEG NEUTROPHILS) 85 % (16-70); TARGET CELLS 1+ (NORMAL); WBC DIFF SAMPLE 100
[2016-06-09 09:26] LABS: OVALOCYTES 1+ (NORMAL); PLATELET ESTIMATE SMEAR LOW (NORMAL); PLATELET MORPHOLOGY NORMAL (NORMAL); SCAN/DIFF FINAL DIFF MANUAL
[2016-06-09] MEDS ORDERED: POTASSIUM CHLORIDE 20 MEQ CONTROLLED RELEASE TAB PO ONE (09:30)
--- NOTE | 2016-06-09 09:34 | HHI.PR ---
Subjective Remarks resting comfortably but complaining of mild sob. pain to the right hand is fairly controlled. no fever. Objective Vitals Vital Signs Date Time Temp Pulse Resp B/P Pulse Ox O2 Delivery O2 Flow Rate FiO2 06/09/16 06:00 84 06/09/16 05:00 89 06/09/16 04:00 Nasal Cannula 4.00 06/09/16 04:00 86 06/09/16 04:00 98.2 86 22 111/69 95 06/09/16 03:00 90 06/09/16 02:00 91 06/09/16 01:00 92 06/09/16 00:00 93 06/08/16 23:40 98.5 93 22 119/62 95 06/08/16 23:40 Nasal Cannula 4.00 06/08/16 23:00 96 06/08/16 22:00 98 06/08/16 21:00 96 06/08/16 20:00 Nasal Cannula 4.00 06/08/16 20:00 105 06/08/16 20:00 98.1 105 22 121/62 96 06/08/16 18:00 96 06/08/16 17:44 94 Nasal Cannula 4.00 06/08/16 16:34 98.2 106 20 138/68 96 06/08/16 16:32 98.2 106 20 138/68 96 06/08/16 16:00 90 06/08/16 15:00 90 06/08/16 14:00 90 06/08/16 13:00 104 06/08/16 12:08 93 Nasal Cannula 4.00 06/08/16 12:00 102 06/08/16 11:30 97.8 103 22 129/62 96 06/08/16 11:00 106 06/08/16 10:59 22 06/08/16 10:00 112 I/O 06/08/16 06/08/16 06/08/16 06/09/16 06/09/16 06/09/16 07:00 15:00 23:00 07:00 15:00 23:00 Intake Total 980 ml 1100 ml 980 ml Output Total 650 ml 700 ml Balance 330 ml 1100 ml 280 ml Intake Oral 480 ml 600 ml 480 ml IV Total 500 ml 500 ml 500 ml Output Urine Total 650 ml 700 ml # Voids 4 # Bowel Movements 0 0 Result Diagram: 06/09/16 0732 06/09/16 0732 Imaging Last Impressions Chest X-Ray 06/05/16 1223 Signed Impressions: Service Date/Time: June 12:50 - CONCLUSION: Hyperinflation which can be seen with COPD. No acute cardiopulmonary disease and no evidence for an infiltrate. Mani Lopez MD Upper Extremity Ultrasound 06/05/16 0000 Signed Impressions: Service Date/Time: June 16:01 - CONCLUSION: No evidence of upper extremity DVT on the right or left. Matt Sapp MD Elbow X-Ray 06/05/16 0000 Signed Impressions: Service Date/Time: June 17:02 - CONCLUSION: Minimal arthritic findings. Prominent soft tissue swelling of the olecranon process indicating possible olecranon bursitis. Matt Sapp MD Objective Remarks GENERAL: This is a well-nourished, well-developed patient, in no apparent distress. CARDIOVASCULAR: Regular rate and regular rhythm without murmurs, gallops, or rubs. RESPIRATORY: Clear to auscultation. Breath sounds equal bilaterally. No wheezes , rales, or rhonchi. GASTROINTESTINAL: Abdomen soft, non-tender, nondistended. Normal, active bowel sounds MUSCULOSKELETAL: edema , erythema and pain to the right upper extremity - bilateral pedal edema noted. NEURO: Alert & Oriented x4 to person, place, time, situation. Moves all ext x4 Procedures none Medications and IVs Current Medications IV Flush (NS Flush) 2 ml UNSCH PRN IVF FLUSH AFTER USING IV ACCESS; Start at 12:30 Adenosine (Adenocard Inj) 6 mg ONCE ONCE IV PUSH Last administered on 13:36; Start 06/05/16 at 12:30; Stop 06/05/16 at 12:31; Status DC Adenosine (Adenocard Inj) 12 mg ONCE ONCE IV PUSH Last administered on 13:37; Start 06/05/16 at 12:30; Stop 06/05/16 at 12:31; Status DC Adenosine (Adenocard Inj) 18 mg STK-MED ONCE .ROUTE ; Start 06/05/16 at 12:29; Stop 06/05/16 at 12:30; Status DC Adenosine (Adenocard Inj) 6 mg STK-MED ONCE .ROUTE ; Start 06/05/16 at 12:31; Stop 06/05/16 at 12:32; Status DC Adenosine (Adenocard Inj) 6 mg ONCE ONCE IV PUSH ; Start 06/05/16 at 12:45; Stop 06/05/16 at 12:46; Status DC Adenosine (Adenocard Inj) 12 mg ONCE ONCE IV PUSH ; Start 06/05/16 at 12:45; Stop 06/05/16 at 12:46; Status DC Diltiazem HCl (Cardizem Inj) 25 mg STK-MED ONCE .ROUTE ; Start 06/05/16 at 12:41 ; Stop 06/05/16 at 12:42; Status DC Diltiazem HCl (Cardizem Inj) 25 mg ONCE ONCE IV Last administered on 06/05/16 13:38; Start 06/05/16 at 13:15; Stop 06/05/16 at 13:16; Status DC Diltiazem HCl 25 mg 25 mg STK-MED ONCE .ROUTE Last administered on 06/05/16 13: 37; Start 06/05/16 at 13:02; Stop 06/05/16 at 13:03; Status DC Vancomycin HCl 1200 mg/Sodium Chloride 262 ml @ 250 mls/hr ONCE ONCE IV Last administered on 06/05/16 14:45; Start 06/05/16 at 13:15; Stop 06/05/16 at 14:17; Status DC Cefepime HCl 2000 mg/Sodium Chloride 100 ml @ 200 mls/hr ONCE ONCE IV Last administered on 06/05/16 16:13; Start 06/05/16 at 13:15; Stop 06/05/16 at 13:44; Status DC Diltiazem HCl/ Sodium Chloride (Cardizem Inj/NS Inj) 125 ml @ 0 mls/hr TITRATE IV Last administered on 06/05/16 14:37; Start 06/05/16 at 13:30 Diltiazem HCl (Cardizem Inj) 20 mg ONCE ONCE IV Last administered on 06/05/16 14:35; Start 06/05/16 at 14:15; Stop 06/05/16 at 14:16; Status DC Diltiazem HCl 20 mg 20 mg ONCE ONCE IV Last administered on 06/05/16 16:16; Start 06/05/16 at 14:15; Stop 06/05/16 at 14:16; Status DC Pharmacy Profile Note 0 ml @ 0 mls/hr UNSCH OTHER ; Start 06/05/16 at 15:45 Cefepime HCl/ Sodium Chloride (Maxipime Inj/NS Inj) 100 ml @ 200 mls/hr Q12H IV Last administered on 06/06/16 14:58; Start 06/06/16 at 02:00; Stop 06/06/16 at 19:04; Status DC Acetaminophen (Tylenol) 650 mg Q4H PRN PO FEVER/ PAIN 1-5 Last administered on 06/05/16 19:27; Start 06/05/16 at 15:45 Acetaminophen/ Hydrocodone Bitart ([place] 5-325 Mg) 1 tab Q4H PRN PO PAIN 6-10 Last administered on 06/09/16 09:00; Start 06/05/16 at 15:45 Hydromorphone HCl (Dilaudid Pf Inj) 0.2 mg Q4H PRN IV PUSH BREAKTHROUGH PAIN Last administered on 06/05/16 16:47; Start 06/05/16 at 15:45 Ondansetron HCl (Zofran Inj) 4 mg Q8HR PRN IV PUSH NAUSEA; Start 06/05/16 at 15: 45 Albuterol Sulfate (Proair Hfa Inh) 2 puff QID INH Last administered on 20:13; Start 06/05/16 at 18:00 Aspirin (Aspirin Chew) 81 mg DAILY CHEW Last administered on 06/09/16 08:59; Start 06/06/16 at 09:00 Budesonide/ Formoterol Fumarate (Symbicort 160-4.5 Inh) 2 puff BID INH Last administered on 06/08/16 20:14; Start 06/05/16 at 21:00 Lisinopril (Prinivil) 20 mg DAILY PO Last administered on 06/09/16 09:00; Start 06/06/16 at 09:00 Tiotropium [place] (Spiriva Inh) 18 mcg DAILY INH ; Start 06/06/16 at 09:00 Diltiazem HCl (Cardizem Cd) 180 mg DAILY PO Last administered on 06/09/16 08:59 ; Start 06/06/16 at 09:00 Insulin Detemir (Levemir Inj) 8 units HS SQ Last administered on 06/08/16 20:13 ; Start 06/05/16 at 21:00 Insulin Detemir (Levemir Inj) 12 units DAILY SQ Last administered on 06/09/16 09:00; Start 06/06/16 at 09:00 Naphazoline HCl (Clear Eyes Redness Relief 0.012% Opth Soln) 1 drop QID PRN EACH EYE EYE ITCH; Start 06/05/16 at 16:30 Albuterol Sulfate (Albuterol Neb) 0.63 mg Q6HR NEB PRN NEB SHORTNESS OF BREATH ; Start 06/05/16 at 15:45 Dextrose (D50w (Vial) Inj) 25 ml UNSCH PRN IV PUSH HYPOGLYCEMIA-SEE COMMENTS; Start 06/05/16 at 15:45 Glucagon (Glucagon Inj) 1 mg UNSCH PRN OTHER HYPOGLYCEMIA-SEE COMMENTS; Start 06/05/16 at 15:45 Insulin Aspart 1 1 ACHS SLIDING SCALE SQ Last administered on 06/05/16 20:56; Start 06/05/16 at 16:00 Vancomycin HCl/ Sodium Chloride (Vancomycin Inj/ NS 500 ml Inj) 515 ml @ 250 mls/hr Q18H IV Last administered on 06/09/16 06:09; Start 06/06/16 at 06:00 Miscellaneous Information SPECIFIC LAB TO BE DRAWN:VANCOMYCIN TROUGH DATE TO... ONCE ONCE XX ; Start 06/08/16 at 11:45; Stop 06/08/16 at 11:46; Status DC Sodium Chloride (NS 500 ml Inj) 500 ml @ 500 mls/hr BOLUS ONCE IV Last administered on 06/05/16 20:36; Start 06/05/16 at 20:15; Stop 06/05/16 at 21:14; Status DC Albuterol/ Ipratropium (Duoneb Neb) 1 ampule Q4HR NEB PRN NEB SOB/WHEEZING; Start 06/05/16 at 20:30 Alprazolam (Xanax) 0.25 mg Q12HR PRN PO ANXIETY Last administered on 06/09/16 04:25; Start 06/06/16 at 13:00 Zolpidem Tartrate (Ambien) 5 mg HS PRN PO SLEEP Last administered on 06/08/16 20:12; Start 06/06/16 at 21:00 Furosemide (Lasix Inj) 20 mg ONCE ONCE IV PUSH Last administered on 06/08/16 08:45; Start 06/08/16 at 08:45; Stop 06/08/16 at 08:52; Status DC Miscellaneous Information SPECIFIC LAB TO BE DRAWN:VANCOMY... ONCE ONCE XX ; Start 06/09/16 at 05:45; Stop 06/09/16 at 05:46; Status DC Furosemide (Lasix Inj) 40 mg STK-MED ONCE .ROUTE ; Start 06/08/16 at 17:02; Stop 06/08/16 at 17:03; Status DC A/P Assessment and Plan A/P - severe sepsis due to cellulitis of the right upper extremity- continue with broad-spectrum IV antibiotics- keep the right hand elevated- continue pain control venous doppler of the upper extremities with no DVT-XR of the right elbow with possible olecranon bursitis- blood cultures negative- ID consult appreciated. will consult hand surgery and ortho for further evaluation. -SVT- due to sepsis- - resumed po cardizem- - cardiology consult appreciated. -ischemic cardiomyopathy with mild levation of troponin- s/p stent placement; continue aspirin and lisinopril elevated troponin likely due to tachycardia/ sepsis echo with EF 35% cardiology consult appreciated. -diabetes mellitus; resumed home insulin regimen- accu-check with SSI -COPD; resumed Symbicort and Spiriva- neb treatment ; scheduled and as needed CXR today- of note the patient is on home oxygen -anemia of chronic disease- s/p PRBC transfusion with improved H/H- will monitor stool occult blood pending- -DVT prophylaxis ; SCD's-no chemical prophylaxis for now due to anemia. -consulted PT/OT Pankaj Booth MD Jun 09, 2016 09:34
--- NOTE | 2016-06-09 10:30 | HHI.IDPN ---
Subjective Subjective Remarks is a 76 y/o CM with history of CAD, diabetes who [facility]. Patient reports swelling all over his body. He reports erythema and swelling since last 4 days prior to admission associated with tenderness in UE. Tenderness more pronounced over knuckles where he has areas that are beginning to look fluctuant. He reports he was in a rehab facility and may be received antibiotics there. He was found to have SVT at the time of presentation to ER for which he received Adenosine and Cardizem and then placed on cardizem drip. Cardiology saw the patient. Patient was noted to have signs of sepsis (elevated WBC 27,000 along with tachycardia, source: cellulitis UE). Patient had blood cultures on admission which are negative. ID is consulted for evaluation and Mment of Sepsis and bilateral UE cellulitis. Overnight events reviewed. Delayed entry patient seen at 8:45 am ~ Complains of shortness of breath, unable to complete sentences without catching a breath. Cough with some expectoration. No diarrhea No rash No fevers. Recd 2 units of blood for anemia new onset. Antibiotics Vanco IV Lines Line sites with no e/o bleed. Past Medical History reviewed Allergies: Coded Allergies: Sulfa (Verified Allergy, Severe, Anaphylaxis, 01/27/16) Objective . Vital Signs Date Time Temp Pulse Resp B/P Pulse Ox O2 Delivery O2 Flow Rate FiO2 06/09/16 06:00 84 06/09/16 05:00 89 06/09/16 04:00 Nasal Cannula 4.00 06/09/16 04:00 86 06/09/16 04:00 98.2 86 22 111/69 95 06/09/16 03:00 90 06/09/16 02:00 91 06/09/16 01:00 92 06/09/16 00:00 93 06/08/16 23:40 98.5 93 22 119/62 95 06/08/16 23:40 Nasal Cannula 4.00 06/08/16 23:00 96 06/08/16 22:00 98 06/08/16 21:00 96 06/08/16 20:00 Nasal Cannula 4.00 06/08/16 20:00 105 06/08/16 20:00 98.1 105 22 121/62 96 06/08/16 18:00 96 06/08/16 17:44 94 Nasal Cannula 4.00 06/08/16 16:34 98.2 106 20 138/68 96 06/08/16 16:32 98.2 106 20 138/68 96 06/08/16 16:00 90 06/08/16 15:00 90 06/08/16 14:00 90 06/08/16 13:00 104 06/08/16 12:08 93 Nasal Cannula 4.00 06/08/16 12:00 102 06/08/16 11:30 97.8 103 22 129/62 96 06/08/16 11:00 106 06/08/16 10:59 22 06/08/16 10:00 112 06/08/16 06/08/16 06/09/16 15:00 23:00 07:00 Intake Total 1100 ml 980 ml Output Total 700 ml Balance 1100 ml 280 ml Intake Oral 600 ml 480 ml IV Total 500 ml 500 ml Output Urine Total 700 ml # Voids 4 # Bowel Movements 0 . Laboratory Tests Test 06/07/16 06/08/16 06/09/16 15:23 05:05 07:32 Hemoglobin 8.0 GM/DL 7.2 GM/DL 9.3 GM/DL Hematocrit 24.1 % 21.7 % 27.0 % White Blood Count 8.7 TH/MM3 5.1 TH/MM3 Red Blood Count 2.46 MIL/MM3 3.15 MIL/MM3 Mean Corpuscular Volume 88.1 FL 85.9 FL Mean Corpuscular Hemoglobin 29.2 PG 29.6 PG Mean Corpuscular Hemoglobin 33.1 % 34.4 % Concent Red Cell Distribution Width 28.2 % 23.3 % Platelet Count 126 TH/MM3 94 TH/MM3 Mean Platelet Volume 9.0 FL 8.0 FL Neutrophils (%) (Auto) 86.8 % % Lymphocytes (%) (Auto) 6.8 % % Monocytes (%) (Auto) 5.6 % % Eosinophils (%) (Auto) 0.1 % % Basophils (%) (Auto) 0.7 % % Neutrophils # (Auto) 7.5 TH/MM3 TH/MM3 Lymphocytes # (Auto) 0.6 TH/MM3 TH/MM3 Monocytes # (Auto) 0.5 TH/MM3 TH/MM3 Eosinophils # (Auto) 0.0 TH/MM3 TH/MM3 Basophils # (Auto) 0.1 TH/MM3 TH/MM3 CBC Comment AUTO DIFF AUTO DIFF Differential Total Cells 100 100 Counted Neutrophils % (Manual) 87 % 85 % Band Neutrophils % 1 % Lymphocytes % 11 % 13 % Monocytes % 1 % 2 % Neutrophils # (Manual) 7.7 TH/MM3 4.3 TH/MM3 Differential Comment FINAL DIFF FINAL DIFF MANUAL MANUAL Platelet Estimate LOW LOW Platelet Morphology Comment NORMAL NORMAL Target Cells 2+ 1+ Tear Drop Cells 1+ Ovalocytes 1+ 1+ Laboratory Tests Test 06/07/16 06/09/16 15:27 07:32 Iron Level 33 MCG/DL Total Iron Binding Capacity 140 MCG/DL Percent Iron Saturation 23.6 % Ferritin 401 NG/ML Sodium Level 142 MEQ/L Potassium Level 3.4 MEQ/L Chloride Level 104 MEQ/L Carbon Dioxide Level 30.7 MEQ/L Anion Gap 7 MEQ/L Blood Urea Nitrogen 17 MG/DL Creatinine 0.64 MG/DL Estimat Glomerular Filtration 122 ML/MIN Rate Random Glucose 90 MG/DL Calcium Level 7.6 MG/DL Total Bilirubin 0.7 MG/DL Aspartate Amino Transf 18 U/L (AST/SGOT) Alanine Aminotransferase 19 U/L (ALT/SGPT) Alkaline Phosphatase 39 U/L C-Reactive Protein 17.50 MG/DL Total Protein 4.8 GM/DL Albumin 1.7 GM/DL Imaging Last Impressions Chest X-Ray 06/05/16 1223 Signed Impressions: Service Date/Time: June 12:50 - CONCLUSION: Hyperinflation which can be seen with COPD. No acute cardiopulmonary disease and no evidence for an infiltrate. Mani Lopez MD Upper Extremity Ultrasound 06/05/16 0000 Signed Impressions: Service Date/Time: June 16:01 - CONCLUSION: No evidence of upper extremity DVT on the right or left. Matt Sapp MD Elbow X-Ray 06/05/16 0000 Signed Impressions: Service Date/Time: June 17:02 - CONCLUSION: Minimal arthritic findings. Prominent soft tissue swelling of the olecranon process indicating possible olecranon bursitis. Matt Sapp MD Physical Exam GENERAL: This is a well-nourished, well-developed patient, in no apparent distress. SKIN: No rashes, ecchymoses or lesions. Cool and dry. HEAD: Atraumatic. Normocephalic. No temporal or scalp tenderness. EYES: Pupils equal round and reactive. Extraocular motions intact. No scleral icterus. No injection or drainage. ENT: Nose without bleeding, purulent drainage or septal hematoma. Throat without erythema, tonsillar hypertrophy or exudate. Uvula midline. Airway patent. NECK: Trachea midline. Supple, nontender, no meningeal signs. CARDIOVASCULAR: Hs audible. RESPIRATORY: Clear to auscultation. Breath sounds equal bilaterally. No wheezes , rales, or rhonchi. GASTROINTESTINAL: Abdomen soft, non-tender, nondistended. No hepato-splenomegaly , or palpable masses. No guarding. MUSCULOSKELETAL: Bilateral UE edema associated with erythema. On the knuckles of both hands an area of tenderness,fluctuance noted. right elbow with fluctuance noted, erythema and warmth noted. NEUROLOGICAL: Awake and alert. Grossly non focal Psych: cooperative IV line sites with no e/o infection. Assessment & Plan Remarks Sepsis present on admission Bilateral UE cellulitis ? abscess on dorsal aspect. Right olecranon bursitis. CAD DM HTN Recs Continue Vanco IV (target 10-15) Follow clinically. CXR stat (pneumonia vs pulm edema from transfusions etc) Nebulizer treatments in view of audible bronchospasm. d/w : Ortho consult (right olecranon bursitis) as well as hand surgery consult (knuckle with area of edema and erythema) Roya Velez MD Jun 09, 2016 09:48
--- NOTE | 2016-06-09 11:13 | RADRPT ---
EXAM DATE/TIME: 06/09/2016 09:58 [facility] COMPARISON: CHEST SINGLE AP, June 05, 2016, 12:50. INDICATIONS : Shortness of breath. MEDICAL HISTORY : Hypertension. SURGICAL HISTORY : Tonsillectomy. Coronary artery stents. ENCOUNTER: Subsequent ACUITY: 4 - 6 days PAIN SCORE: 7/10 LOCATION: chest FINDINGS: The cardiac silhouette is enlarged in transverse diameter. Coronary stent is present. There are findi ngs of congestive heart failure with interstitial and alveolar opacity bilaterally. There is left low er lobe atelectasis versus pneumonia. A small left sided effusion is present. CONCLUSION: 1. Cardiomegaly and findings of congestive heart failure. 2. Left lower lobe atelectasis and small effusion Mehran Boyer MD on June 09, 2016 at 11:08 Board Certified Radiologist. This report was verified electronically.
--- NOTE | 2016-06-09 11:46 | PD.CONS ---
HPI Service Orthopedic Surgeons Consult Requested By Dr. Booth Reason for Consult Evaluation of olecranon bursitis Primary Care Physician Non-Staff Admission Diagnosis svt, sepsis Diagnoses: (1) SVT (supraventricular tachycardia) Diagnosis: Principal (2) Severe sepsis Diagnosis: Principal (3) COPD with acute exacerbation (4) Sepsis (5) Cellulitis of right upper extremity (6) Abscess of hand, right (7) Olecranon bursitis, right elbow Chief Complaint: Bilateral arm swelling and pain History of Present Illness This 76 year old male was admitted approximately 4 days ago with a diagnosis of sepsis and SVT related to same. The patient did have pre-existing swelling of both upper extremities. He apparently has been treated in a nursing facility with antibiotics. It was getting worse. The patient complains of pain in the right upper extremity. He states that since he has been hospitalized the swelling has improved. He was noted to have swelling about the elbow and orthopedic consultation requested. Review of Systems Reviewed and well outlined in the medical record Past Family Social History Past Medical History CAD hypertension diabetes mellitus bladder cancer Past Surgical History cardiac stent placement Allergies: Coded Allergies: Sulfa (Verified Allergy, Severe, Anaphylaxis, 01/27/16) Active Ordered Medications Current Medications Medications (Trade) Dose Ordered Sig/Mitchell Route Start Time Stop Time Status Last Admin IV Flush 2 ml 2 ml UNSCH PRN IVF 06/05/16 12:30 Diltiazem HCl 125 mg/Sodium Chloride 125 ml @ 0 mls/hr TITRATE IV 06/05/16 13:30 06/05/16 14:37 (Vancomycin Consult Pharmacy) 0 ml @ 0 mls/hr UNSCH OTHER 06/05/16 15:45 (Tylenol) 650 mg Q4H PRN PO 06/05/16 15:45 06/05/16 19:27 (Hometown 5-325 Mg) 1 tab Q4H PRN PO 06/05/16 15:45 06/09/16 09:00 (Dilaudid Pf Inj) 0.2 mg Q4H PRN IV PUSH 06/05/16 15:45 06/05/16 16:47 (Zofran Inj) 4 mg Q8HR PRN IV PUSH 06/05/16 15:45 (Proair Hfa Inh) 2 puff QID INH 06/05/16 18:00 Hold 06/08/16 20:13 (Aspirin Chew) 81 mg DAILY CHEW 06/06/16 09:00 06/09/16 08:59 (Symbicort 160-4.5 Inh) 2 puff BID INH 06/05/16 21:00 06/09/16 09:00 (Prinivil) 20 mg DAILY PO 06/06/16 09:00 06/09/16 09:00 (Spiriva Inh) 18 mcg DAILY INH 06/06/16 09:00 06/09/16 09:00 (Cardizem Cd) 180 mg DAILY PO 06/06/16 09:00 06/09/16 08:59 (Levemir Inj) 8 units HS SQ 06/05/16 21:00 06/08/16 20:13 (Levemir Inj) 12 units DAILY SQ 06/06/16 09:00 06/09/16 09:00 (Clear Eyes Redness Relief 0.012% Opth Soln) 1 drop QID PRN EACH EYE 06/05/16 16:30 (D50w (Vial) Inj) 25 ml UNSCH PRN IV PUSH 06/05/16 15:45 (Glucagon Inj) 1 mg UNSCH PRN OTHER 06/05/16 15:45 (Xanax) 0.25 mg Q12HR PRN PO 06/06/16 13:00 06/09/16 04:25 Zolpidem Tartrate 5 mg 5 mg HS PRN PO 06/06/16 21:00 06/08/16 20:12 (Vancomycin Inj/ NS 250 ml Inj) 250 ml @ 250 mls/hr Q12H IV 06/09/16 18:00 Miscellaneous Information SPECIFIC LAB TO BE [facility]... ONCE ONCE XX 06/10/16 17:45 06/10/16 17:46 Reported Meds & Active Scripts Active Reported Ascorbic Acid 500 Mg Tab 500 Mg PO DAILY Spiriva Handihaler (Tiotropium Inh) 18 Mcg Cap 18 Mcg INH DAILY 1 capsule = 18 mcg Symbicort Inh (Budesonide/Formoterol Fumarate) 160-4.5 Mcg/Act Aero 2 Puff INH BID Proventil Hfa 6.7 GM Inh (Albuterol Sulfate) 90 Mcg/Act Aer 2 Puff INH QID Novolog Inj (Insulin Aspart) 1,000 Unit/10 Ml Vial 2-6 Units SQ ACHS Max dose at bedtime ( ) units; sugars less than 70,(0) units; sugars 161-220,(2) units; sugars 221-280,(3) units; sugars 281-340,(4) units; sugars 341-400,(5) units; sugars greater than 401+,(6)units Novolog Flexpen Inj (Insulin Aspart) 300 Unit/3 Ml Pen 2 Units SQ TIDAC Theragran-M (Multiple Vitamins W/ Minerals) 1 Tab 1 Tab PO DAILY Hometown (Hydrocodone-Acetaminophen) 5-325 mg Tab 1 Tab PO Q4H PRN Milk of Magnesia Liq (Magnesium Hydroxide) 400 Mg/5 Ml Susp 30 Ml PO HS PRN Lisinopril 20 Mg Tab 20 Mg PO DAILY Levemir Flextouch Pen Inj (Insulin Detemir) 300 unit/3 ML Pen 8 Units SQ HS Levemir Flextouch Pen Inj (Insulin Detemir) 300 unit/3 ML Pen 12 Units SQ DAILY Allergy Eye Drops (Ketotifen Fumarate (Ophth)) 0.025 % Abdirashid 1 Drop EACH EYE QID Aspirin Children's (Aspirin) 81 Mg Chew 81 Mg CHEW DAILY Mapap (Acetaminophen) 325 Mg Tab 650 Mg PO Q4HR PRN B-12 (Cyanocobalamin) 1,000 Mcg Cap 1,000 Mcg PO DAILY Ergocalciferol 50,000 Unit Cap 50,000 Units PO WEEKLY ON FRIDAYS Diltiazem ER 24 HR (Diltiazem HCl) 180 Mg Caper 180 Mg PO DAILY Clonidine (Clonidine HCl) 0.1 Mg Tab 0.1 Mg PO Q12HR PRN Cheracol-D Cough Liq (Dextromethorphan-Guaifenesin Liq) 10-100 Mg/5 Ml Liq 5 Ml PO Q6H PRN Albuterol Neb (Albuterol Sulfate) 2.5 Mg/3 Ml Neb 2.5 Mg NEB Q6HR PRN Family History not relevant to this admission. Social History quit smoking and drinking years ago. Physical Exam Vital Signs Vital Signs Date Time Temp Pulse Resp B/P Pulse Ox O2 Delivery O2 Flow Rate FiO2 06/09/16 06:00 84 06/09/16 05:00 89 06/09/16 04:00 Nasal Cannula 4.00 06/09/16 04:00 86 06/09/16 04:00 98.2 86 22 111/69 95 06/09/16 03:00 90 06/09/16 02:00 91 06/09/16 01:00 92 06/09/16 00:00 93 06/08/16 23:40 98.5 93 22 119/62 95 06/08/16 23:40 Nasal Cannula 4.00 06/08/16 23:00 96 06/08/16 22:00 98 06/08/16 21:00 96 06/08/16 20:00 Nasal Cannula 4.00 06/08/16 20:00 105 06/08/16 20:00 98.1 105 22 121/62 96 06/08/16 18:00 96 06/08/16 17:44 94 Nasal Cannula 4.00 06/08/16 16:34 98.2 106 20 138/68 96 06/08/16 16:32 98.2 106 20 138/68 96 06/08/16 16:00 90 06/08/16 15:00 90 06/08/16 14:00 90 06/08/16 13:00 104 06/08/16 12:08 93 Nasal Cannula 4.00 06/08/16 12:00 102 Physical Exam There is an incision over the wrist or lateral aspect of the left elbow. It appears to be a slight deformity. There is no soft tissue swelling or palpable tenderness. The right upper extremity is noted to have wrinkling of the skin consistent with decreasing swelling. There is mild erythema. There is an abscess on the dorsum of the third metacarpophalangeal joint. It is tender to palpation. He has a minimally restricted range of motion of the fingers. There is mild swelling over the posterior aspect of the elbow. There is minimal fluid accumulation. He has a slight restricted range of motion. There is no instability. He has good capillary refill and sensation distally. Laboratory Laboratory Tests Test 06/09/16 07:32 White Blood Count 5.1 Red Blood Count 3.15 Hemoglobin 9.3 Hematocrit 27.0 Mean Corpuscular Volume 85.9 Mean Corpuscular Hemoglobin 29.6 Mean Corpuscular Hemoglobin 34.4 Concent Red Cell Distribution Width 23.3 Platelet Count 94 Mean Platelet Volume 8.0 Neutrophils (%) (Auto) Lymphocytes (%) (Auto) Monocytes (%) (Auto) Eosinophils (%) (Auto) Basophils (%) (Auto) Neutrophils # (Auto) Lymphocytes # (Auto) Monocytes # (Auto) Eosinophils # (Auto) Basophils # (Auto) CBC Comment AUTO DIFF Differential Total Cells 100 Counted Neutrophils % (Manual) 85 Lymphocytes % 13 Monocytes % 2 Neutrophils # (Manual) 4.3 Differential Comment FINAL DIFF MANUAL Platelet Estimate LOW Platelet Morphology Comment NORMAL Target Cells 1+ Ovalocytes 1+ Sodium Level 142 Potassium Level 3.4 Chloride Level 104 Carbon Dioxide Level 30.7 Anion Gap 7 Blood Urea Nitrogen 17 Creatinine 0.64 Estimat Glomerular Filtration 122 Rate Random Glucose 90 Calcium Level 7.6 Total Bilirubin 0.7 Aspartate Amino Transf 18 (AST/SGOT) Alanine Aminotransferase 19 (ALT/SGPT) Alkaline Phosphatase 39 C-Reactive Protein 17.50 Total Protein 4.8 Albumin 1.7 Vancomycin Level Trough 12.5 Date/Time Procedure Status Source Growth 06/05/16 13:25 Aerobic Blood Culture - Preliminary Resulted Blood Peripheral NO GROWTH IN 4 DAYS 06/05/16 13:25 Anaerobic Blood Culture - Preliminary Resulted Blood Peripheral NO GROWTH IN 4 DAYS Result Diagram: 06/09/16 0732 06/09/16 0732 Imaging Last 72 hours Impressions Chest X-Ray 06/09/16 1003 Signed Impressions: Service Date/Time: Thursday, June 09, 2016 09:58 - CONCLUSION: 1. Cardiomegaly and findings of congestive heart failure. 2. Left lower lobe atelectasis and small effusion Mehran Boyer MD Assessment & Plan Problem List: (1) Olecranon bursitis, right elbow (2) Abscess of hand, right (3) Cellulitis of right upper extremity (4) SVT (supraventricular tachycardia) (5) Sepsis (6) COPD with acute exacerbation Assessment and Plan The findings were discussed. After my examination the nurse was on the phone with hand surgery who was also consulted. A discussion was carried out with regards to the findings of the hand which I feel are more pressing at the present time. Orders have been given to have the patient remain nothing by mouth for possible hand surgical intervention for the dorsal MCP abscess. If the hand surgeon deems appropriate the olecranon bursa can be addressed as well. I will therefore defer treatment of this at the present time. Reconsult if necessary. Emmanuel San MD Jun 09, 2016 11:46
[2016-06-09] MEDS: FUROSEMIDE 20 MG/2 ML VIAL IV PUSH SCH (12:30)
[2016-06-09] MEDS: POTASSIUM CHLORIDE 20 MEQ CONTROLLED RELEASE TAB PO SCH (12:30)
[2016-06-09] MEDS: RESP: ALBUTEROL 2.5 MG/IPRATROPIUM 0.5 MG NEB (SCH) NEB ×3 (12:59→19:45)
[2016-06-09] MEDS: DEXTROSE 50% IN WATER 50 ML VIAL(D50) IV PUSH PRN (17:09)
[2016-06-09] MEDS: VANCOMYCIN 1,000 MG/NS 250 ML IV SCH ×2 (18:00)
--- NOTE | 2016-06-09 20:17 | RADRPT ---
EXAM DATE/TIME: 06/09/2016 18:12 [facility] COMPARISON: No previous studies available for comparison. INDICATIONS : Right hand palpable area. MEDICAL HISTORY : Gastroesophageal reflux disease. Chronic obstructive pulmonary disease. Hypertension. Muscle weakness . Abdominal aortic aneuryms. Myocardial infarction. Afib. Chronic renal disease. Bladder cancer. Arth ritis. Peripheral vascular disease. SURGICAL HISTORY : Coronary artery stent. ENCOUNTER: Initial ACUITY: 3 days PAIN SCORE: 7/10 LOCATION: Right hand. AREA EVALUATED: Right hand above third finger. FINDINGS: There is a complex soft tissue mass in the right hand overlying the third finger measuring up to 2.4 x 1.6 x 0.8 cm. There is a hypoechoic area adjacent to this measuring about 8 mm x 6 mm. These are of uncertain etiology. CONCLUSION: 1. Complex circumscribed soft tissue mass measuring up to 2.4 x 1.6 x 0.8 cm overlying the third fing er with adjacent complex fluid collection measuring 8 mm. Etiology unclear. Stalin Alexis MD on June 09, 2016 at 20:14 Board Certified Radiologist. This report was verified electronically.
--- NOTE | 2016-06-09 21:16 | MB ---
cc: KAROLINA DWYER MD DATE OF CONSULTATION June 09, 2016 REASON FOR CONSULTATION Right hand abscess. HISTORY OF PRESENT ILLNESS The patient is a 76-year-old right-hand dominant male who was admitted with history of SVT and sepsis. The patient states he developed swelling of both upper and lower extremities and has been complaining of worsening pain over the right elbow region and right hand. Initially the patient was found to have elevated white count and he was treated with IV antibiotics. Hand Surgery was consulted today for a fluctuant mass over the dorsal aspect of the hand. The patient complains of pain and tender to touch over the right hand dorsal aspect. He denies any penetrating injury to the region. He also complains of mild pain over the left hand dorsum. He denies any tingling or numbness. He also complains of stiffness of the fingers on both sides. No history of fever or chills or rigors. PAST MEDICAL-SURGICAL HISTORY: Noted. Significant for - 1. Coronary artery disease. 2. Hypertension. 3. Diabetes. 4. Patient also had a cardiac stent placement. EXAMINATION OF THE PATIENT GENERAL: The patient is alert, oriented x 3. He is on oxygen. EXAMINATION OF RIGHT UPPER EXTREMITY: Reveals swelling over the dorsal aspect of the hand corresponding to the third metacarpophalangeal joint region. Slightly increased warmth noted. Tender to palpate over the region. There is also evidence of fluctuant mass over the dorsal aspect of the third MP joint. The patient is able to actively extend the MP joint of the middle finger. On making a fist, terminal degrees of flexion is associated with pain. No tenderness noted over the lateral aspect of the MP joint of the hand. EXAMINATION OF LEFT HAND: Reveals diffuse swelling of the upper extremity. Mild tenderness noted over the dorsal aspect of the fifth metacarpophalangeal joint region. No evidence of fluctuant mass noted. The patient is able to make a full fist. He has full extension of the fingers. LAB WORK His lab work was reviewed. He had initial white count of 18.4 on June 06, 2016. Blood cultures are negative. IMAGING STUDIES The patient had ultrasound of the right upper extremity, shows no evidence of DVT. ASSESSMENT A 76-year-old male with subcutaneous abscess over the dorsal aspect of the hand over the third metacarpophalangeal joint with bilateral upper extremity swelling and edema. PLAN Ultrasound of the right hand to look for collection. Most likely the patient has subcutaneous abscess over the dorsal aspect of the hand and likely involvement of the MP joint. We will proceed with bedside incision and drainage. Because of the associated medical conditions, the patient is a poor candidate for surgery under anesthesia. Hand Surgery will follow. Karolina Dwyer MD SE/JENNIFER /5:33 PM /9:05 PM MTDMason
[2016-06-09] MEDS: ZOLPIDEM TARTRATE 5 MG TAB PO PRN (21:26)
[2016-06-10] VITALS (19 sets, daily range): BP systolic 133–163; BP diastolic 66–92; PULSE 86–146; RESP 22–26; TEMP 98.2–100.5; O2SAT 92–98
[2016-06-10] MEDS: ACETAMINOPHEN/HYDROcodone 325 MG/5 MG TAB PO PRN ×2 (03:14→19:50)
[2016-06-10] MEDS: RESP: ALBUTEROL 2.5 MG/IPRATROPIUM 0.5 MG NEB (SCH) NEB ×7 (03:28→23:52)
[2016-06-10] MEDS: DEXTROSE 50% IN WATER 50 ML VIAL(D50) IV PUSH PRN (06:34)
[2016-06-10] MEDS: INSULIN ASPART SUPPLEMENTAL SCALE SQ SCH ×4 (06:36→20:28)
[2016-06-10] MEDS: VANCOMYCIN 1,000 MG/NS 250 ML IV SCH ×2 (06:45)
[2016-06-10] MEDS: INSULIN DETEMIR 100 UNITS/ML VIAL SQ SCH (09:00)
[2016-06-10] MEDS: LISINOPRIL 20 MG TAB PO SCH (09:00)
[2016-06-10] MEDS: DILTIAZEM-CD 180 MG CAP ER PO SCH (09:00)
[2016-06-10] MEDS: FUROSEMIDE 20 MG/2 ML VIAL IV PUSH SCH (09:00)
[2016-06-10] MEDS: ASPIRIN 81 MG CHEW TAB CHEW SCH (09:00)
[2016-06-10] MEDS: BUDESONIDE-FORMOTEROL 160/4.5 MCG INHALER INH SCH ×2 (09:00→20:28)
[2016-06-10] MEDS: POTASSIUM CHLORIDE 20 MEQ CONTROLLED RELEASE TAB PO SCH (09:00)
[2016-06-10] MEDS: TIOTROPIUM BROMIDE 18 MCG INH INH SCH (09:00)
--- NOTE | 2016-06-10 09:02 | HHI.IDPN ---
Subjective Subjective Remarks is a 76 y/o CM with history of CAD, diabetes who was [facility]. Patient reports swelling all over his body. He reports erythema and swelling since last 4 days prior to admission associated with tenderness in UE. Tenderness more pronounced over knuckles where he has areas that are beginning to look fluctuant. He reports he was in a rehab facility and may be received antibiotics there. He was found to have SVT at the time of presentation to ER for which he received Adenosine and Cardizem and then placed on cardizem drip. Cardiology saw the patient. Patient was noted to have signs of sepsis (elevated WBC 27,000 along with tachycardia, source: cellulitis UE). Patient had blood cultures on admission which are negative. ID is consulted for evaluation and Mment of Sepsis and bilateral UE cellulitis. Overnight events reviewed. Cough with some clear mucoid expectoration. No diarrhea No rash No fevers. s/b ortho and hand surgeons Antibiotics Vanco IV Lines Line sites with no e/o bleed. Past Medical History reviewed Allergies: Coded Allergies: Sulfa (Verified Allergy, Severe, Anaphylaxis, 01/27/16) Objective . Vital Signs Date Time Temp Pulse Resp B/P Pulse Ox O2 Delivery O2 Flow Rate FiO2 06/10/16 07:39 92 Nasal Cannula 4.00 06/10/16 06:00 86 06/10/16 05:00 98 06/10/16 04:00 98 06/10/16 03:29 96 Nasal Cannula 4.00 06/10/16 03:00 92 06/10/16 03:00 98.3 95 22 157/81 96 06/10/16 02:00 86 06/10/16 01:00 102 06/10/16 00:00 89 06/09/16 23:00 90 06/09/16 23:00 98.6 104 26 138/68 96 06/09/16 22:00 108 06/09/16 21:00 92 06/09/16 20:00 102 06/09/16 19:00 94 Nasal Cannula 4.00 06/09/16 19:00 97.7 105 26 159/72 06/09/16 19:00 102 06/09/16 18:26 18 06/09/16 15:00 98 Nasal Cannula 4.00 06/09/16 15:00 98.3 91 22 141/68 98 06/09/16 13:00 92 Nasal Cannula 4.00 06/09/16 06/09/16 06/10/16 15:00 23:00 07:00 Intake Total 934 ml Balance 934 ml Intake Oral 684 ml IV Total 250 ml # Voids 2 . Laboratory Tests Test 06/09/16 07:32 White Blood Count 5.1 TH/MM3 Red Blood Count 3.15 MIL/MM3 Hemoglobin 9.3 GM/DL Hematocrit 27.0 % Mean Corpuscular Volume 85.9 FL Mean Corpuscular Hemoglobin 29.6 PG Mean Corpuscular Hemoglobin 34.4 % Concent Red Cell Distribution Width 23.3 % Platelet Count 94 TH/MM3 Mean Platelet Volume 8.0 FL Neutrophils (%) (Auto) % Lymphocytes (%) (Auto) % Monocytes (%) (Auto) % Eosinophils (%) (Auto) % Basophils (%) (Auto) % Neutrophils # (Auto) TH/MM3 Lymphocytes # (Auto) TH/MM3 Monocytes # (Auto) TH/MM3 Eosinophils # (Auto) TH/MM3 Basophils # (Auto) TH/MM3 CBC Comment AUTO DIFF Differential Total Cells 100 Counted Neutrophils % (Manual) 85 % Lymphocytes % 13 % Monocytes % 2 % Neutrophils # (Manual) 4.3 TH/MM3 Differential Comment FINAL DIFF MANUAL Platelet Estimate LOW Platelet Morphology Comment NORMAL Target Cells 1+ Ovalocytes 1+ Laboratory Tests Test 06/09/16 06/10/16 07:32 06:05 Sodium Level 142 MEQ/L Potassium Level 3.4 MEQ/L Chloride Level 104 MEQ/L Carbon Dioxide Level 30.7 MEQ/L Anion Gap 7 MEQ/L Blood Urea Nitrogen 17 MG/DL Creatinine 0.64 MG/DL Estimat Glomerular Filtration 122 ML/MIN Rate Random Glucose 90 MG/DL 37 MG/DL Calcium Level 7.6 MG/DL Total Bilirubin 0.7 MG/DL Aspartate Amino Transf 18 U/L (AST/SGOT) Alanine Aminotransferase 19 U/L (ALT/SGPT) Alkaline Phosphatase 39 U/L C-Reactive Protein 17.50 MG/DL Total Protein 4.8 GM/DL Albumin 1.7 GM/DL Imaging Last Impressions Chest X-Ray 06/05/16 1223 Signed Impressions: Service Date/Time: June 12:50 - CONCLUSION: Hyperinflation which can be seen with COPD. No acute cardiopulmonary disease and no evidence for an infiltrate. Mani Lopez MD Upper Extremity Ultrasound 06/05/16 0000 Signed Impressions: Service Date/Time: June 16:01 - CONCLUSION: No evidence of upper extremity DVT on the right or left. Matt Sapp MD Elbow X-Ray 06/05/16 0000 Signed Impressions: Service Date/Time: June 17:02 - CONCLUSION: Minimal arthritic findings. Prominent soft tissue swelling of the olecranon process indicating possible olecranon bursitis. Matt Sapp MD Physical Exam GENERAL: Elderly chronically ill appearing male patient, in no apparent distress. SKIN: No rashes, ecchymoses or lesions. Cool and dry. HEAD: Atraumatic. Normocephalic. No temporal or scalp tenderness. EYES: Pupils equal round and reactive. Extraocular motions intact. No scleral icterus. No injection or drainage. ENT: Nose without bleeding, purulent drainage or septal hematoma. Throat without erythema, tonsillar hypertrophy or exudate. Uvula midline. Airway patent. NECK: Trachea midline. Supple, nontender, no meningeal signs. CARDIOVASCULAR: Hs audible. RESPIRATORY: Clear to auscultation. Breath sounds equal bilaterally. No wheezes , rales, or rhonchi. GASTROINTESTINAL: Abdomen soft, non-tender, nondistended. No hepato-splenomegaly , or palpable masses. No guarding. MUSCULOSKELETAL: Bilateral UE edema associated with erythema. On the knuckles of both hands an area of tenderness,fluctuance noted. right elbow with fluctuance noted, erythema and warmth noted. NEUROLOGICAL: Awake and alert. Grossly non focal Psych: cooperative IV line sites with no e/o infection. Assessment & Plan Remarks Sepsis present on admission Bilateral UE cellulitis ? abscess on dorsal aspect hand. Right olecranon bursitis. Abscess of right dorsum of hand. CAD DM HTN Recs Continue Vanco IV (target 10-15) Follow clinically. Appreciate Ortho consult (right olecranon bursitis) Appreciate hand surgery consult (abscess of dorsum of hand) d/w may need cardiac clearance if needs to go to OR. Roya Velez MD Jun 10, 2016 09:02
--- NOTE | 2016-06-10 09:32 | HHI.PR ---
Subjective Remarks in no acute distress but with some sob. pain to the right arm is fairly controlled. no fever. Objective Vitals Vital Signs Date Time Temp Pulse Resp B/P Pulse Ox O2 Delivery O2 Flow Rate FiO2 06/10/16 07:39 92 Nasal Cannula 4.00 06/10/16 06:00 86 06/10/16 05:00 98 06/10/16 04:00 98 06/10/16 03:29 96 Nasal Cannula 4.00 06/10/16 03:00 92 06/10/16 03:00 98.3 95 22 157/81 96 06/10/16 02:00 86 06/10/16 01:00 102 06/10/16 00:00 89 06/09/16 23:00 90 06/09/16 23:00 98.6 104 26 138/68 96 06/09/16 22:00 108 06/09/16 21:00 92 06/09/16 20:00 102 06/09/16 19:00 94 Nasal Cannula 4.00 06/09/16 19:00 97.7 105 26 159/72 06/09/16 19:00 102 06/09/16 18:26 18 06/09/16 15:00 98 Nasal Cannula 4.00 06/09/16 15:00 98.3 91 22 141/68 98 06/09/16 13:00 92 Nasal Cannula 4.00 I/O 06/09/16 06/09/16 06/09/16 06/10/16 06/10/16 06/10/16 07:00 15:00 23:00 07:00 15:00 23:00 Intake Total 980 ml 934 ml Output Total 700 ml Balance 280 ml 934 ml Intake Oral 480 ml 684 ml IV Total 500 ml 250 ml Output Urine Total 700 ml # Voids 2 # Bowel Movements 0 Result Diagram: 06/09/16 0732 06/10/16 0605 Imaging Last Impressions Chest X-Ray 06/09/16 1003 Signed Impressions: Service Date/Time: Thursday, June 09, 2016 09:58 - CONCLUSION: 1. Cardiomegaly and findings of congestive heart failure. 2. Left lower lobe atelectasis and small effusion Mehran Boyer MD Upper Extremity Ultrasound 06/09/16 0000 Signed Impressions: Service Date/Time: Thursday, June 09, 2016 18:12 - CONCLUSION: 1. Complex circumscribed soft tissue mass measuring up to 2.4 x 1.6 x 0.8 cm overlying the third finger with adjacent complex fluid collection measuring 8 mm. Etiology unclear. Stalin Alexis MD Elbow X-Ray 06/05/16 0000 Signed Impressions: Service Date/Time: June 17:02 - CONCLUSION: Minimal arthritic findings. Prominent soft tissue swelling of the olecranon process indicating possible olecranon bursitis. Matt Sapp MD Objective Remarks GENERAL: This is a well-nourished, well-developed patient, in no apparent distress. CARDIOVASCULAR: Regular rate and regular rhythm without murmurs, gallops, or rubs. RESPIRATORY: Clear to auscultation. Breath sounds equal bilaterally. No wheezes , rales, or rhonchi. GASTROINTESTINAL: Abdomen soft, non-tender, nondistended. Normal, active bowel sounds MUSCULOSKELETAL: edema , erythema and pain to the right upper extremity - bilateral pedal edema noted. NEURO: Alert & Oriented x4 to person, place, time, situation. Moves all ext x4 Procedures none Medications and IVs Current Medications IV Flush (NS Flush) 2 ml UNSCH PRN IVF FLUSH AFTER USING IV ACCESS; Start at 12:30 Adenosine (Adenocard Inj) 6 mg ONCE ONCE IV PUSH Last administered on 13:36; Start 06/05/16 at 12:30; Stop 06/05/16 at 12:31; Status DC Adenosine (Adenocard Inj) 12 mg ONCE ONCE IV PUSH Last administered on 13:37; Start 06/05/16 at 12:30; Stop 06/05/16 at 12:31; Status DC Adenosine (Adenocard Inj) 18 mg STK-MED ONCE .ROUTE ; Start 06/05/16 at 12:29; Stop 06/05/16 at 12:30; Status DC Adenosine (Adenocard Inj) 6 mg STK-MED ONCE .ROUTE ; Start 06/05/16 at 12:31; Stop 06/05/16 at 12:32; Status DC Adenosine (Adenocard Inj) 6 mg ONCE ONCE IV PUSH ; Start 06/05/16 at 12:45; Stop 06/05/16 at 12:46; Status DC Adenosine (Adenocard Inj) 12 mg ONCE ONCE IV PUSH ; Start 06/05/16 at 12:45; Stop 06/05/16 at 12:46; Status DC Diltiazem HCl (Cardizem Inj) 25 mg STK-MED ONCE .ROUTE ; Start 06/05/16 at 12:41 ; Stop 06/05/16 at 12:42; Status DC Diltiazem HCl (Cardizem Inj) 25 mg ONCE ONCE IV Last administered on 06/05/16 13:38; Start 06/05/16 at 13:15; Stop 06/05/16 at 13:16; Status DC Diltiazem HCl 25 mg 25 mg STK-MED ONCE .ROUTE Last administered on 06/05/16 13: 37; Start 06/05/16 at 13:02; Stop 06/05/16 at 13:03; Status DC Vancomycin HCl 1200 mg/Sodium Chloride 262 ml @ 250 mls/hr ONCE ONCE IV Last administered on 06/05/16 14:45; Start 06/05/16 at 13:15; Stop 06/05/16 at 14:17; Status DC Cefepime HCl 2000 mg/Sodium Chloride 100 ml @ 200 mls/hr ONCE ONCE IV Last administered on 06/05/16 16:13; Start 06/05/16 at 13:15; Stop 06/05/16 at 13:44; Status DC Diltiazem HCl/ Sodium Chloride (Cardizem Inj/NS Inj) 125 ml @ 0 mls/hr TITRATE IV Last administered on 06/05/16 14:37; Start 06/05/16 at 13:30 Diltiazem HCl (Cardizem Inj) 20 mg ONCE ONCE IV Last administered on 06/05/16 14:35; Start 06/05/16 at 14:15; Stop 06/05/16 at 14:16; Status DC Diltiazem HCl 20 mg 20 mg ONCE ONCE IV Last administered on 06/05/16 16:16; Start 06/05/16 at 14:15; Stop 06/05/16 at 14:16; Status DC Pharmacy Profile Note 0 ml @ 0 mls/hr UNSCH OTHER ; Start 06/05/16 at 15:45 Cefepime HCl/ Sodium Chloride (Maxipime Inj/NS Inj) 100 ml @ 200 mls/hr Q12H IV Last administered on 06/06/16 14:58; Start 06/06/16 at 02:00; Stop 06/06/16 at 19:04; Status DC Acetaminophen (Tylenol) 650 mg Q4H PRN PO FEVER/ PAIN 1-5 Last administered on 06/05/16 19:27; Start 06/05/16 at 15:45 Acetaminophen/ Hydrocodone Bitart ([place] 5-325 Mg) 1 tab Q4H PRN PO PAIN 6-10 Last administered on 06/10/16 03:14; Start 06/05/16 at 15:45 Hydromorphone HCl (Dilaudid Pf Inj) 0.2 mg Q4H PRN IV PUSH BREAKTHROUGH PAIN Last administered on 06/05/16 16:47; Start 06/05/16 at 15:45 Ondansetron HCl (Zofran Inj) 4 mg Q8HR PRN IV PUSH NAUSEA; Start 06/05/16 at 15: 45 Albuterol Sulfate (Proair Hfa Inh) 2 puff QID INH Last administered on 20:13; Start 06/05/16 at 18:00; Status Hold Aspirin (Aspirin Chew) 81 mg DAILY CHEW Last administered on 06/09/16 08:59; Start 06/06/16 at 09:00 Budesonide/ Formoterol Fumarate (Symbicort 160-4.5 Inh) 2 puff BID INH Last administered on 06/09/16 20:35; Start 06/05/16 at 21:00 Lisinopril (Prinivil) 20 mg DAILY PO Last administered on 06/09/16 09:00; Start 06/06/16 at 09:00 Tiotropium [place] (Spiriva Inh) 18 mcg DAILY INH Last administered on 09:00; Start 06/06/16 at 09:00 Diltiazem HCl (Cardizem Cd) 180 mg DAILY PO Last administered on 06/09/16 08:59 ; Start 06/06/16 at 09:00 Insulin Detemir (Levemir Inj) 8 units HS SQ Last administered on 06/09/16 20:35 ; Start 06/05/16 at 21:00 Insulin Detemir (Levemir Inj) 12 units DAILY SQ Last administered on 06/09/16 09:00; Start 06/06/16 at 09:00 Naphazoline HCl (Clear Eyes Redness Relief 0.012% Opth Soln) 1 drop QID PRN EACH EYE EYE ITCH; Start 06/05/16 at 16:30 Albuterol Sulfate (Albuterol Neb) 0.63 mg Q6HR NEB PRN NEB SHORTNESS OF BREATH ; Start 06/05/16 at 15:45; Stop 06/09/16 at 09:32; Status DC Dextrose (D50w (Vial) Inj) 25 ml UNSCH PRN IV PUSH HYPOGLYCEMIA-SEE COMMENTS Last administered on 06/10/16 06:34; Start 06/05/16 at 15:45 Glucagon (Glucagon Inj) 1 mg UNSCH PRN OTHER HYPOGLYCEMIA-SEE COMMENTS; Start 06/05/16 at 15:45 Insulin Aspart 1 1 ACHS SLIDING SCALE SQ Last administered on 06/05/16 20:56; Start 06/05/16 at 16:00 Vancomycin HCl/ Sodium Chloride (Vancomycin Inj/ NS 500 ml Inj) 515 ml @ 250 mls/hr Q18H IV Last administered on 06/09/16 06:09; Start 06/06/16 at 06:00; Stop 06/09/16 at 10:22; Status DC Miscellaneous Information SPECIFIC LAB TO BE DRAWN:VANCOMYCIN TROUGH DATE TO... ONCE ONCE XX ; Start 06/08/16 at 11:45; Stop 06/08/16 at 11:46; Status DC Sodium Chloride (NS 500 ml Inj) 500 ml @ 500 mls/hr BOLUS ONCE IV Last administered on 06/05/16 20:36; Start 06/05/16 at 20:15; Stop 06/05/16 at 21:14; Status DC Albuterol/ Ipratropium (Duoneb Neb) 1 ampule Q4HR NEB PRN NEB SOB/WHEEZING; Start 06/05/16 at 20:30; Stop 06/09/16 at 09:30; Status DC Alprazolam (Xanax) 0.25 mg Q12HR PRN PO ANXIETY Last administered on 06/09/16 23:41; Start 06/06/16 at 13:00 Zolpidem Tartrate (Ambien) 5 mg HS PRN PO SLEEP Last administered on 06/09/16 21:26; Start 06/06/16 at 21:00 Furosemide (Lasix Inj) 20 mg ONCE ONCE IV PUSH Last administered on 06/08/16 08:45; Start 06/08/16 at 08:45; Stop 06/08/16 at 08:52; Status DC Miscellaneous Information SPECIFIC LAB TO BE DRAWN:VANCOMY... ONCE ONCE XX ; Start 06/09/16 at 05:45; Stop 06/09/16 at 05:46; Status DC Furosemide (Lasix Inj) 40 mg STK-MED ONCE .ROUTE ; Start 06/08/16 at 17:02; Stop 06/08/16 at 17:03; Status DC Albuterol/ Ipratropium (Duoneb Neb) 1 ampule Q4HR NEB NEB ; Start 06/09/16 at 12 :00 Albuterol Sulfate (Albuterol Neb) 0.63 mg Q2HR NEB PRN NEB SHORTNESS OF BREATH ; Start 06/09/16 at 10:00 Potassium Chloride 20 meq 20 meq ONCE ONCE PO Last administered on 06/09/16 09 :30; Start 06/09/16 at 09:30; Stop 06/09/16 at 09:45; Status DC Vancomycin HCl/ Sodium Chloride (Vancomycin Inj/ NS 250 ml Inj) 250 ml @ 250 mls/hr Q12H IV Last administered on 06/10/16 06:45; Start 06/09/16 at 18:00 Miscellaneous Information SPECIFIC LAB TO BE DILLAN... ONCE ONCE XX ; Start at 17:45; Stop 06/10/16 at 17:46 Furosemide (Lasix Inj) 20 mg DAILY IV PUSH Last administered on 06/09/16 12:30 ; Start 06/09/16 at 12:30 Potassium Chloride (KCl) 20 meq DAILY PO Last administered on 06/09/16 12:30; Start 06/09/16 at 12:30 A/P Assessment and Plan A/P - severe sepsis due to cellulitis of the right upper extremity- continue with broad-spectrum IV antibiotics- keep the right hand elevated- continue pain control venous doppler of the upper extremities with no DVT-XR of the right elbow with possible olecranon bursitis- US of the right upper extremity with a complex mass overlying the right third finger- blood cultures negative- ID consult appreciated. ortho and hand surgery consults appreciated. d/w hand surgery; plan for bedside I/D of the right hand at this time. -SVT- due to sepsis- - resumed po cardizem- - cardiology consult appreciated. -ischemic cardiomyopathy with mild levation of troponin- s/p stent placement; continue aspirin and lisinopril elevated troponin likely due to tachycardia/ sepsis echo with EF 35% cardiology consult appreciated. -acute on chronic systolic CHF- continue IV diuretic and monitor. -diabetes with hypoglycemic episode ;hold levemir- accu-check with SSI -COPD; resumed Symbicort and Spiriva- neb treatment of note the patient is on home oxygen -anemia of chronic disease- s/p PRBC transfusion with improved H/H- will monitor stool occult blood pending- -DVT prophylaxis ; SCD's-no chemical prophylaxis for now due to anemia. -consulted PT/OT Pankaj Booth MD Jun 10, 2016 09:31
[2016-06-10] MEDS: ALPRAZolam 0.25 MG TAB PO PRN (15:25)
[2016-06-10] MEDS ORDERED: LIDOCAINE HCL 2% 100 MG/5 ML SYRINGE ONE (16:21)
[2016-06-10] MEDS ORDERED: LIDOCAINE HCL 1% 50 ML VIAL ONE (16:34)
--- NOTE | 2016-06-10 17:05 | PD.OP ---
Operative Report Preoperative Diagnosis: (1) Abscess of hand, right Postoperative Diagnosis: (1) Abscess of hand, right Procedure: incision and drainage right hand mass/collection Anesthesia: local 1 % lidocaine 3 cc Surgeon: Frantz Wellington Sales [employer] Executive(s): umang Operation and Findings: fluctuant mass over the dorsal aspect of the hand and middle finger mp joint region 2 cm longitudinal incision cavity with necrotic material, no purulent material noted material sent for c/s Frantz Wellington MD Jun 10, 2016 17:05
[2016-06-10] MEDS ORDERED: PHARMACY ORDERED LAB XX ONE (17:45)
[2016-06-10] MEDS: guaiFENesin/CODEINE SYRUP 200 MG/20 MG/10 ML CUP PO PRN (19:50)
[2016-06-11] VITALS (20 sets, daily range): BP systolic 103–134; BP diastolic 49–79; PULSE 89–119; RESP 17–27; TEMP 97–99.4; O2SAT 90–100
[2016-06-11] MEDS: RESP: ALBUTEROL 2.5 MG/IPRATROPIUM 0.5 MG NEB (SCH) NEB ×6 (03:38→20:46)
[2016-06-11] MEDS: ACETAMINOPHEN/HYDROcodone 325 MG/5 MG TAB PO PRN ×3 (04:01→20:12)
[2016-06-11] MEDS: guaiFENesin/CODEINE SYRUP 200 MG/20 MG/10 ML CUP PO PRN ×2 (06:54→13:08)
[2016-06-11] MEDS: INSULIN ASPART SUPPLEMENTAL SCALE SQ SCH ×4 (07:00→21:47)
[2016-06-11 07:29] LABS: BASOPHIL % 0.3 % (0.0-2.0); EOSINOPHIL % 0.2 % (0.0-4.0); HEMATOCRIT 27.5 % (39.0-51.0); HEMO FLAGS DIFF FINAL; LYMPH % 24.7 % (9.0-44.0); LYMPHOCYTE # 1.1 TH/MM3 (1.0-4.8); MEAN CELL VOLUME 86.8 FL (80.0-100.0); MEAN CORPUSCULAR HEMOGLOBIN 29.2 PG (27.0-34.0); MEAN CORPUSCULAR HGB CONC 33.6 % (32.0-36.0); MONO % 5.9 % (0.0-8.0); NEUT % 68.9 % (16.0-70.0); PLATELET COUNT 113 TH/MM3 (150-450); RED BLOOD COUNT 3.17 MIL/MM3 (4.50-5.90); RED CELL DISTRIBUTION WIDTH 23.4 % (11.6-17.2); WHITE BLOOD COUNT 4.3 TH/MM3 (4.0-11.0)
[2016-06-11 07:45] LABS: BICARBONATE 30.1 MEQ/L (21.0-32.0); POTASSIUM 3.8 MEQ/L (3.5-5.1)
[2016-06-11] MEDS ORDERED: PHARMACY ORDERED LAB XX ONE (07:45)
[2016-06-11 07:59] LABS: CALCIUM-PROTEIN CORRECTED 8.5 MG/DL (8.5-10.1)
[2016-06-11] MEDS ORDERED: VANCOMYCIN 1,000 MG/NS 250 ML IV SCH ×2 (08:00)
--- NOTE | 2016-06-11 08:10 | MP ---
cc: FRANTZ DWYER MD DATE OF SURGERY June 10, 2016 PREOPERATIVE DIAGNOSIS Abscess cavity right hand dorsum. POSTOPERATIVE DIAGNOSIS Abscess/collection right hand dorsum. PROCEDURE Incision and drainage of mass / collection. SURGEON Dr. Dwyer ANESTHESIA Local, 3 cc of 1% lidocaine plain. NOTE This was a bedside procedure. CONDITION The patient tolerated the procedure well. SPECIMEN Material was sent for culture and sensitivity. DRAINS Packing of the wound carried out. INDICATIONS The patient is a 76-year-old male admitted with history of sepsis and swelling of the extremity. He was found to have a fluctuant mass over the dorsal aspect of the right hand corresponding to the middle finger MP joint region. The patient had ultrasound which showed a complex fluid collection measuring about 2 x 1 cm and with likely differential diagnosis being abscess. The patient was consented for the same. This was done as a bedside procedure as the patient has medical problems and was high risk for anesthesia. Explained the risks and benefits of the procedure. PROCEDURE The right hand was thoroughly prepped and draped after obtaining appropriate consent with 3 cc of 1% lidocaine plain injected as a field block. A 2-cm incision was made over the mass, the incision deepened. Soft tissue dissection was carried out. There was a cavity over the dorsal aspect of the EDC tendon just proximal to the MP joint region. Necrotic material was noted within the region which was removed. The necrotic material was sent for culture and sensitivity. No purulent material was noted. Blunt dissection was carried out to break any the pockets. The patient tolerated the procedure well. Thorough wash was given. Packing of the wound was carried out with 1/4-inch plain packing material, 4x4 dressing and [place] was applied. The patient tolerated the procedure well. Plan will be to change the packing in a day or two, follow up cultures. Frantz Dwyer MD SE/JENNIFER /5:08 PM /8:01 AM [place]
--- NOTE | 2016-06-11 08:20 | PD.ORT.PN ---
Subjective Subjective Remarks Orthopaedic consultation was requested for right olecranon bursitis. Patient admits his elbow 'feels better' and is improving. He admits to mild pain localized at right elbow. No other complaints noted at this time. Objective Vitals Vital Signs Date Time Temp Pulse Resp B/P Pulse Ox O2 Delivery O2 Flow Rate FiO2 06/11/16 08:03 98.2 89 24 114/62 100 06/11/16 06:00 94 06/11/16 05:00 102 06/11/16 04:00 111 06/11/16 03:39 98 Nasal Cannula 4.00 06/11/16 03:00 99.4 119 26 134/63 94 06/11/16 03:00 94 06/11/16 02:00 94 06/11/16 01:00 96 06/11/16 00:00 92 06/10/16 23:54 96 Nasal Cannula 4.00 06/10/16 23:00 99.3 105 24 133/66 98 06/10/16 23:00 88 06/10/16 22:00 104 06/10/16 21:17 95 Nasal Cannula 4.00 06/10/16 21:00 100 06/10/16 20:00 130 06/10/16 19:00 100.5 129 26 163/92 97 06/10/16 19:00 97 Nasal Cannula 4.00 06/10/16 19:00 146 06/10/16 12:54 95 06/10/16 11:30 98.6 110 24 148/76 96 I/O 06/10/16 06/10/16 06/10/16 06/11/16 06/11/16 06/11/16 07:00 15:00 23:00 07:00 15:00 23:00 Intake Total 934 ml 820 ml Output Total 175 ml Balance 934 ml 645 ml Intake Oral 684 ml 680 ml IV Total 250 ml 140 ml Output Urine Total 175 ml # Voids 2 Result Diagram: 06/11/1652106/11/16521 Imaging Last 48 hours Impressions Chest X-Ray 06/09/16 1003 Signed Impressions: Service Date/Time: Thursday, June 09, 2016 09:58 - CONCLUSION: 1. Cardiomegaly and findings of congestive heart failure. 2. Left lower lobe atelectasis and small effusion Mehran Boyer MD Objective Remarks The right upper extremity is noted to have wrinkling of the skin consistent with decreasing swelling. There is mild erythema. Skin does cristian. There is clean and dry dressing over the the third digit. He has a minimally restricted range of motion of the fingers. There is mild swelling over the posterior aspect of the elbow, 1+ pitting edema. There is minimal fluid accumulation. He is able to flex and extend the elbow with no pain. There is no instability. He has good capillary refill and sensation distally. Assessment & Plan Problem List: (1) Olecranon bursitis, right elbow (2) Abscess of hand, right (3) Cellulitis of right upper extremity (4) SVT (supraventricular tachycardia) (5) Sepsis (6) COPD with acute exacerbation Assessment and Plan The findings were discussed with the patient. Olecranon bursitis is stable at this point. Continue to keep extremity elevated with ice to help decrease swelling. No further treatment is necessary at this point. Appreciate hand surgeon's involvement in patient's care. Reconsult if necessary. Zhanna Islas Jun 11, 2016 08:20
[2016-06-11] MEDS: FUROSEMIDE 20 MG/2 ML VIAL IV PUSH SCH (08:54)
[2016-06-11] MEDS: POTASSIUM CHLORIDE 20 MEQ CONTROLLED RELEASE TAB PO SCH (08:54)
[2016-06-11] MEDS: DILTIAZEM-CD 180 MG CAP ER PO SCH (08:54)
[2016-06-11] MEDS: LISINOPRIL 20 MG TAB PO SCH (08:54)
[2016-06-11] MEDS: ASPIRIN 81 MG CHEW TAB CHEW SCH (08:54)
[2016-06-11] MEDS: TIOTROPIUM BROMIDE 18 MCG INH INH SCH (08:54)
[2016-06-11] MEDS: BUDESONIDE-FORMOTEROL 160/4.5 MCG INHALER INH SCH ×2 (08:55→20:13)
--- NOTE | 2016-06-11 10:30 | HHI.PR ---
Subjective Remarks sob seems to be slightly worse today. has some wheezing. low grade fever last night. complaining o constipation. Objective Vitals Vital Signs Date Time Temp Pulse Resp B/P Pulse Ox O2 Delivery O2 Flow Rate FiO2 06/11/16 09:18 92 Nasal Cannula 4.00 06/11/16 08:03 98.2 89 24 114/62 100 06/11/16 06:00 94 06/11/16 05:00 102 06/11/16 04:00 111 06/11/16 03:39 98 Nasal Cannula 4.00 06/11/16 03:00 99.4 119 26 134/63 94 06/11/16 03:00 94 06/11/16 02:00 94 06/11/16 01:00 96 06/11/16 00:00 92 06/10/16 23:54 96 Nasal Cannula 4.00 06/10/16 23:00 99.3 105 24 133/66 98 06/10/16 23:00 88 06/10/16 22:00 104 06/10/16 21:17 95 Nasal Cannula 4.00 06/10/16 21:00 100 06/10/16 20:00 130 06/10/16 19:00 100.5 129 26 163/92 97 06/10/16 19:00 97 Nasal Cannula 4.00 06/10/16 19:00 146 06/10/16 12:54 95 06/10/16 11:30 98.6 110 24 148/76 96 I/O 06/10/16 06/10/16 06/10/16 06/11/16 06/11/16 06/11/16 07:00 15:00 23:00 07:00 15:00 23:00 Intake Total 934 ml 820 ml Output Total 175 ml Balance 934 ml 645 ml Intake Oral 684 ml 680 ml IV Total 250 ml 140 ml Output Urine Total 175 ml # Voids 2 Result Diagram: 06/11/1652106/11/16521 Imaging Last Impressions Chest X-Ray 06/09/16 1003 Signed Impressions: Service Date/Time: Thursday, June 09, 2016 09:58 - CONCLUSION: 1. Cardiomegaly and findings of congestive heart failure. 2. Left lower lobe atelectasis and small effusion Mehran Boyer MD Upper Extremity Ultrasound 06/09/16 0000 Signed Impressions: Service Date/Time: Thursday, June 09, 2016 18:12 - CONCLUSION: 1. Complex circumscribed soft tissue mass measuring up to 2.4 x 1.6 x 0.8 cm overlying the third finger with adjacent complex fluid collection measuring 8 mm. Etiology unclear. Stalin Alexis MD Elbow X-Ray 06/05/16 0000 Signed Impressions: Service Date/Time: June 17:02 - CONCLUSION: Minimal arthritic findings. Prominent soft tissue swelling of the olecranon process indicating possible olecranon bursitis. Matt Sapp MD Objective Remarks GENERAL: This is a well-nourished, well-developed patient, in no apparent distress. CARDIOVASCULAR: Regular rate and regular rhythm without murmurs, gallops, or rubs. RESPIRATORY: bilateral wheezing with prolonged expiration. GASTROINTESTINAL: Abdomen soft, non-tender, nondistended. Normal, active bowel sounds MUSCULOSKELETAL: edema , erythema and pain to the right upper extremity - bilateral pedal edema noted. NEURO: Alert & Oriented x4 to person, place, time, situation. Moves all ext x4 Procedures none Medications and IVs Current Medications IV Flush (NS Flush) 2 ml UNSCH PRN IVF FLUSH AFTER USING IV ACCESS; Start at 12:30 Adenosine (Adenocard Inj) 6 mg ONCE ONCE IV PUSH Last administered on 13:36; Start 06/05/16 at 12:30; Stop 06/05/16 at 12:31; Status DC Adenosine (Adenocard Inj) 12 mg ONCE ONCE IV PUSH Last administered on 13:37; Start 06/05/16 at 12:30; Stop 06/05/16 at 12:31; Status DC Adenosine (Adenocard Inj) 18 mg STK-MED ONCE .ROUTE ; Start 06/05/16 at 12:29; Stop 06/05/16 at 12:30; Status DC Adenosine (Adenocard Inj) 6 mg STK-MED ONCE .ROUTE ; Start 06/05/16 at 12:31; Stop 06/05/16 at 12:32; Status DC Adenosine (Adenocard Inj) 6 mg ONCE ONCE IV PUSH ; Start 06/05/16 at 12:45; Stop 06/05/16 at 12:46; Status DC Adenosine (Adenocard Inj) 12 mg ONCE ONCE IV PUSH ; Start 06/05/16 at 12:45; Stop 06/05/16 at 12:46; Status DC Diltiazem HCl (Cardizem Inj) 25 mg STK-MED ONCE .ROUTE ; Start 06/05/16 at 12:41 ; Stop 06/05/16 at 12:42; Status DC Diltiazem HCl (Cardizem Inj) 25 mg ONCE ONCE IV Last administered on 06/05/16 13:38; Start 06/05/16 at 13:15; Stop 06/05/16 at 13:16; Status DC Diltiazem HCl 25 mg 25 mg STK-MED ONCE .ROUTE Last administered on 06/05/16 13: 37; Start 06/05/16 at 13:02; Stop 06/05/16 at 13:03; Status DC Vancomycin HCl 1200 mg/Sodium Chloride 262 ml @ 250 mls/hr ONCE ONCE IV Last administered on 06/05/16 14:45; Start 06/05/16 at 13:15; Stop 06/05/16 at 14:17; Status DC Cefepime HCl 2000 mg/Sodium Chloride 100 ml @ 200 mls/hr ONCE ONCE IV Last administered on 06/05/16 16:13; Start 06/05/16 at 13:15; Stop 06/05/16 at 13:44; Status DC Diltiazem HCl/ Sodium Chloride (Cardizem Inj/NS Inj) 125 ml @ 0 mls/hr TITRATE IV Last administered on 06/05/16 14:37; Start 06/05/16 at 13:30 Diltiazem HCl (Cardizem Inj) 20 mg ONCE ONCE IV Last administered on 06/05/16 14:35; Start 06/05/16 at 14:15; Stop 06/05/16 at 14:16; Status DC Diltiazem HCl 20 mg 20 mg ONCE ONCE IV Last administered on 06/05/16 16:16; Start 06/05/16 at 14:15; Stop 06/05/16 at 14:16; Status DC Pharmacy Profile Note 0 ml @ 0 mls/hr UNSCH OTHER ; Start 06/05/16 at 15:45 Cefepime HCl/ Sodium Chloride (Maxipime Inj/NS Inj) 100 ml @ 200 mls/hr Q12H IV Last administered on 06/06/16 14:58; Start 06/06/16 at 02:00; Stop 06/06/16 at 19:04; Status DC Acetaminophen (Tylenol) 650 mg Q4H PRN PO FEVER/ PAIN 1-5 Last administered on 06/05/16 19:27; Start 06/05/16 at 15:45 Acetaminophen/ Hydrocodone Bitart ([place] 5-325 Mg) 1 tab Q4H PRN PO PAIN 6-10 Last administered on 06/11/16 04:01; Start 06/05/16 at 15:45 Hydromorphone HCl (Dilaudid Pf Inj) 0.2 mg Q4H PRN IV PUSH BREAKTHROUGH PAIN Last administered on 06/05/16 16:47; Start 06/05/16 at 15:45 Ondansetron HCl (Zofran Inj) 4 mg Q8HR PRN IV PUSH NAUSEA; Start 06/05/16 at 15: 45 Albuterol Sulfate (Proair Hfa Inh) 2 puff QID INH Last administered on 20:13; Start 06/05/16 at 18:00; Status Hold Aspirin (Aspirin Chew) 81 mg DAILY CHEW Last administered on 06/11/16 08:54; Start 06/06/16 at 09:00 Budesonide/ Formoterol Fumarate (Symbicort 160-4.5 Inh) 2 puff BID INH Last administered on 06/11/16 08:55; Start 06/05/16 at 21:00 Lisinopril (Prinivil) 20 mg DAILY PO Last administered on 06/11/16 08:54; Start 06/06/16 at 09:00 Tiotropium [place] (Spiriva Inh) 18 mcg DAILY INH Last administered on 08:54; Start 06/06/16 at 09:00 Diltiazem HCl (Cardizem Cd) 180 mg DAILY PO Last administered on 06/11/16 08:54 ; Start 06/06/16 at 09:00 Insulin Detemir (Levemir Inj) 8 units HS SQ Last administered on 06/09/16 20:35 ; Start 06/05/16 at 21:00; Status Hold Insulin Detemir (Levemir Inj) 12 units DAILY SQ Last administered on 06/09/16 09:00; Start 06/06/16 at 09:00; Status Hold Naphazoline HCl (Clear Eyes Redness Relief 0.012% Opth Soln) 1 drop QID PRN EACH EYE EYE ITCH; Start 06/05/16 at 16:30 Albuterol Sulfate (Albuterol Neb) 0.63 mg Q6HR NEB PRN NEB SHORTNESS OF BREATH ; Start 06/05/16 at 15:45; Stop 06/09/16 at 09:32; Status DC Dextrose (D50w (Vial) Inj) 25 ml UNSCH PRN IV PUSH HYPOGLYCEMIA-SEE COMMENTS Last administered on 06/10/16 06:34; Start 06/05/16 at 15:45 Glucagon (Glucagon Inj) 1 mg UNSCH PRN OTHER HYPOGLYCEMIA-SEE COMMENTS; Start 06/05/16 at 15:45 Insulin Aspart 1 1 ACHS SLIDING SCALE SQ Last administered on 06/05/16 20:56; Start 06/05/16 at 16:00 Vancomycin HCl/ Sodium Chloride (Vancomycin Inj/ NS 500 ml Inj) 515 ml @ 250 mls/hr Q18H IV Last administered on 06/09/16 06:09; Start 06/06/16 at 06:00; Stop 06/09/16 at 10:22; Status DC Miscellaneous Information SPECIFIC LAB TO BE DRAWN:VANCOMYCIN TROUGH DATE TO... ONCE ONCE XX ; Start 06/08/16 at 11:45; Stop 06/08/16 at 11:46; Status DC Sodium Chloride (NS 500 ml Inj) 500 ml @ 500 mls/hr BOLUS ONCE IV Last administered on 06/05/16 20:36; Start 06/05/16 at 20:15; Stop 06/05/16 at 21:14; Status DC Albuterol/ Ipratropium (Duoneb Neb) 1 ampule Q4HR NEB PRN NEB SOB/WHEEZING; Start 06/05/16 at 20:30; Stop 06/09/16 at 09:30; Status DC Alprazolam (Xanax) 0.25 mg Q12HR PRN PO ANXIETY Last administered on 06/10/16 15:25; Start 06/06/16 at 13:00 Zolpidem Tartrate (Ambien) 5 mg HS PRN PO SLEEP Last administered on 06/09/16 21:26; Start 06/06/16 at 21:00 Furosemide (Lasix Inj) 20 mg ONCE ONCE IV PUSH Last administered on 06/08/16 08:45; Start 06/08/16 at 08:45; Stop 06/08/16 at 08:52; Status DC Miscellaneous Information SPECIFIC LAB TO BE DRAWN:VANCOMY... ONCE ONCE XX Last administered on 06/09/16 05:45; Start 06/09/16 at 05:45; Stop 06/09/16 at 05: 46; Status DC Furosemide (Lasix Inj) 40 mg STK-MED ONCE .ROUTE ; Start 06/08/16 at 17:02; Stop 06/08/16 at 17:03; Status DC Albuterol/ Ipratropium (Duoneb Neb) 1 ampule Q4HR NEB NEB Last administered on 06/11/16 03:38; Start 06/09/16 at 12:00 Albuterol Sulfate (Albuterol Neb) 0.63 mg Q2HR NEB PRN NEB SHORTNESS OF BREATH ; Start 06/09/16 at 10:00 Potassium Chloride 20 meq 20 meq ONCE ONCE PO Last administered on 06/09/16 09 :30; Start 06/09/16 at 09:30; Stop 06/09/16 at 09:45; Status DC Vancomycin HCl/ Sodium Chloride (Vancomycin Inj/ NS 250 ml Inj) 250 ml @ 250 mls/hr Q12H IV Last administered on 06/10/16 06:45; Start 06/09/16 at 18:00; Stop 06/10/16 at 21:19; Status DC Miscellaneous Information SPECIFIC LAB TO BE DILLAN... ONCE ONCE XX ; Start at 17:45; Stop 06/10/16 at 17:46; Status DC Furosemide (Lasix Inj) 20 mg DAILY IV PUSH Last administered on 06/11/16 08:54 ; Start 06/09/16 at 12:30 Potassium Chloride (KCl) 20 meq DAILY PO Last administered on 06/11/16 08:54; Start 06/09/16 at 12:30 Guaifenesin/ Codeine Phosphate (Robitussin Ac 200-20 Mg/10 ml Liq) 10 ml Q6H PRN PO COUGH Last administered on 06/11/16 06:54; Start 06/10/16 at 10:00 Lidocaine HCl (Xylocaine 2% Inj) 100 mg STK-MED ONCE .ROUTE ; Start 06/10/16 at 16:21; Stop 06/10/16 at 16:22; Status DC Lidocaine HCl 50 ml 50 ml STK-MED ONCE .ROUTE ; Start 06/10/16 at 16:34; Stop 06/10/16 at 16:35; Status DC Vancomycin HCl/ Sodium Chloride (Vancomycin Inj/ NS 250 ml Inj) 250 ml @ 250 mls/hr Q24H IV Last administered on 06/11/16 08:53; Start 06/11/16 at 08:00; Stop 06/11/16 at 09:09; Status DC Miscellaneous Information SPECIFIC LAB TO BE DRAWN:VA... ONCE ONCE XX ; Start 06/11/16 at 07:45; Stop 06/11/16 at 07:46; Status DC Vancomycin HCl/ Sodium Chloride (Vancomycin Inj/ NS 500 ml Inj) 515 ml @ 250 mls/hr Q18H IV ; Start 06/11/16 at 20:00 Miscellaneous Information SPECIFIC LAB TO BE DRAWN:VANCOMYCIN TROUGH DATE TO... ONCE ONCE XX ; Start 06/13/16 at 07:45; Stop 06/13/16 at 07:46 A/P Assessment and Plan A/P - severe sepsis due to cellulitis of the right upper extremity/ right olecranon bursitis- venous doppler of the upper extremities with no DVT-XR of the right elbow with possible olecranon bursitis- US of the right upper extremity with a complex mass overlying the right third finger- s/p I/D of the right nand mass/fluid collection. continue with broad-spectrum IV antibiotics- keep the right hand elevated- continue pain control- follow the cultures. blood cultures negative- ID/hand surgery and ortho following; recommended conservative treatment of olecranon bursitis. -SVT- due to sepsis- - resumed po cardizem- - cardiology consult appreciated. -ischemic cardiomyopathy with mild levation of troponin- s/p stent placement; continue aspirin and lisinopril elevated troponin likely due to tachycardia/ sepsis echo with EF 35% cardiology consult appreciated. -acute on chronic systolic CHF- continue IV diuretic and monitor.repeat CXR today. -COPD exacerbation; start IV steroid- continue neb treatment- will monitor. of note the patient is on home oxygen -diabetes with hypoglycemic episode ;with no further recurrence- resume levemir soon if blood sugar levels stable- accu-check with SSI -anemia of chronic disease- s/p PRBC transfusion with improved H/H- will monitor stool occult blood pending- -DVT prophylaxis ; SCD's-no chemical prophylaxis for now due to anemia. -consulted PT/OT Pankaj Booth MD Jun 11, 2016 10:30
--- NOTE | 2016-06-11 11:53 | RADRPT ---
EXAM DATE/TIME: 06/11/2016 10:32 [facility] COMPARISON: CHEST SINGLE AP, June 09, 2016, 9:58. INDICATIONS: Short of breath. MEDICAL HISTORY: Hypertension. SURGICAL HISTORY: Tonsillectomy. Coronary artery stents. ENCOUNTER: Subsequent ACUITY: 4 - 6 days PAIN SCORE: 0/10 LOCATION: Bilateral chest FINDINGS: Patchy opacities are noted within the lower lobes bilaterally consistent with atelectasis and/or infi ltrates. The heart is stable. Degenerative changes are noted throughout the thoracolumbar spine. CONCLUSION: 1. Patchy bibasilar infiltrates consistent with atelectasis and/or pneumonia. Clinical. Correlation is recommended. Santiago Mccartney MD on June 11, 2016 at 11:41 Board Certified Radiologist. This report was verified electronically.
[2016-06-11] MEDS: methylPREDNISolone SOD SUCC 40 MG/1 ML VIAL IV PUSH SCH ×3 (13:02→23:37)
[2016-06-11] MEDS: LEVOFLOXACIN 500 MG PREMIX INJ 100 ML IV SCH (18:33)
[2016-06-11] MEDS: VANCOMYCIN INJ 1,500 MG in SODIUM CHLORID 0.9% 500 ML INJ 500 ML IV SCH (20:12)
[2016-06-11] MEDS: ALPRAZolam 0.25 MG TAB PO PRN (21:47)
[2016-06-11] MEDS: DILTIAZEM INJ 125 MG in SODIUM CHLORIDE 0.9% INJ 100 ML IV SCH (21:47)
[2016-06-11] MEDS: ZOLPIDEM TARTRATE 5 MG TAB PO PRN (21:47)
[2016-06-12] VITALS (31 sets, daily range): BP systolic 104–135; BP diastolic 52–73; PULSE 79–110; RESP 20; TEMP 97.4–98; O2SAT 92–96
[2016-06-12] MEDS: RESP: ALBUTEROL 2.5 MG/IPRATROPIUM 0.5 MG NEB (SCH) NEB ×7 (00:40→20:20)
[2016-06-12] MEDS: ACETAMINOPHEN/HYDROcodone 325 MG/5 MG TAB PO PRN ×4 (04:32→20:33)
[2016-06-12] MEDS: methylPREDNISolone SOD SUCC 40 MG/1 ML VIAL IV PUSH SCH ×3 (04:32→22:00)
[2016-06-12] MEDS: INSULIN ASPART SUPPLEMENTAL SCALE SQ SCH ×4 (06:19→20:36)
[2016-06-12] MEDS: guaiFENesin/CODEINE SYRUP 200 MG/20 MG/10 ML CUP PO PRN (06:19)
--- NOTE | 2016-06-12 08:26 | HHI.PR ---
Subjective Remarks his sob has improved to some extent. still with some productive cough. no fever. pain is controlled. no BM yet. Objective Vitals Vital Signs Date Time Temp Pulse Resp B/P Pulse Ox O2 Delivery O2 Flow Rate FiO2 06/12/16 07:53 92 Nasal Cannula 3.00 06/12/16 07:42 97.4 91 20 113/59 96 06/12/16 07:42 96 Nasal Cannula 3.00 06/12/16 06:26 83 06/12/16 05:49 79 06/12/16 04:51 93 Nasal Cannula 4.00 06/12/16 04:00 82 06/12/16 03:00 97.4 95 104/52 95 06/12/16 03:00 79 06/12/16 02:00 82 06/12/16 01:00 88 06/12/16 00:00 84 06/11/16 23:00 90 06/11/16 23:00 97.0 91 103/49 95 06/11/16 22:00 92 06/11/16 21:00 94 06/11/16 20:00 96 06/11/16 19:00 108 06/11/16 19:00 90 Nasal Cannula 4.00 06/11/16 19:00 98.2 106 104/60 90 06/11/16 16:20 98.9 107 17 114/65 94 06/11/16 12:00 98.6 111 19 131/70 96 06/11/16 11:17 97 06/11/16 11:11 99 06/11/16 11:09 98.3 107 27 134/79 06/11/16 10:24 Nasal Cannula 4.00 06/11/16 09:18 92 Nasal Cannula 4.00 I/O 06/11/16 06/11/16 06/11/16 06/12/16 06/12/16 06/12/16 07:00 15:00 23:00 07:00 15:00 23:00 Intake Total 820 ml 180 ml 240 ml Output Total 175 ml 200 ml Balance 645 ml 180 ml 40 ml Intake Oral 680 ml 240 ml IV Total 140 ml 180 ml Output Urine Total 175 ml 200 ml Result Diagram: 06/11/16 0506/11/16 05 Imaging Last Impressions Chest X-Ray 06/11/16 0000 Signed Impressions: Service Date/Time: Saturday, June 11, 2016 10:32 - CONCLUSION: 1. Patchy bibasilar infiltrates consistent with atelectasis and/or pneumonia. Clinical. Correlation is recommended. Santiago Mccarteny MD Upper Extremity Ultrasound 06/09/16 0000 Signed Impressions: Service Date/Time: Thursday, June 09, 2016 18:12 - CONCLUSION: 1. Complex circumscribed soft tissue mass measuring up to 2.4 x 1.6 x 0.8 cm overlying the third finger with adjacent complex fluid collection measuring 8 mm. Etiology unclear. Stalin Alexis MD Elbow X-Ray 06/05/16 0000 Signed Impressions: Service Date/Time: June 17:02 - CONCLUSION: Minimal arthritic findings. Prominent soft tissue swelling of the olecranon process indicating possible olecranon bursitis. Matt Sapp MD Objective Remarks GENERAL: This is a well-nourished, well-developed patient, in no apparent distress. CARDIOVASCULAR: Regular rate and regular rhythm without murmurs, gallops, or rubs. RESPIRATORY: bilateral wheezing with prolonged expiration-seems to be improving. GASTROINTESTINAL: Abdomen soft, non-tender, nondistended. Normal, active bowel sounds MUSCULOSKELETAL: edema , erythema and pain to the right upper extremity - bilateral pedal edema noted. NEURO: Alert & Oriented x4 to person, place, time, situation. Moves all ext x4 Procedures none Medications and IVs Current Medications IV Flush (NS Flush) 2 ml UNSCH PRN IVF FLUSH AFTER USING IV ACCESS; Start at 12:30 Adenosine (Adenocard Inj) 6 mg ONCE ONCE IV PUSH Last administered on 13:36; Start 06/05/16 at 12:30; Stop 06/05/16 at 12:31; Status DC Adenosine (Adenocard Inj) 12 mg ONCE ONCE IV PUSH Last administered on 13:37; Start 06/05/16 at 12:30; Stop 06/05/16 at 12:31; Status DC Adenosine (Adenocard Inj) 18 mg STK-MED ONCE .ROUTE ; Start 06/05/16 at 12:29; Stop 06/05/16 at 12:30; Status DC Adenosine (Adenocard Inj) 6 mg STK-MED ONCE .ROUTE ; Start 06/05/16 at 12:31; Stop 06/05/16 at 12:32; Status DC Adenosine (Adenocard Inj) 6 mg ONCE ONCE IV PUSH ; Start 06/05/16 at 12:45; Stop 06/05/16 at 12:46; Status DC Adenosine (Adenocard Inj) 12 mg ONCE ONCE IV PUSH ; Start 06/05/16 at 12:45; Stop 06/05/16 at 12:46; Status DC Diltiazem HCl (Cardizem Inj) 25 mg STK-MED ONCE .ROUTE ; Start 06/05/16 at 12:41 ; Stop 06/05/16 at 12:42; Status DC Diltiazem HCl (Cardizem Inj) 25 mg ONCE ONCE IV Last administered on 06/05/16 13:38; Start 06/05/16 at 13:15; Stop 06/05/16 at 13:16; Status DC Diltiazem HCl 25 mg 25 mg STK-MED ONCE .ROUTE Last administered on 06/05/16 13: 37; Start 06/05/16 at 13:02; Stop 06/05/16 at 13:03; Status DC Vancomycin HCl 1200 mg/Sodium Chloride 262 ml @ 250 mls/hr ONCE ONCE IV Last administered on 06/05/16 14:45; Start 06/05/16 at 13:15; Stop 06/05/16 at 14:17; Status DC Cefepime HCl 2000 mg/Sodium Chloride 100 ml @ 200 mls/hr ONCE ONCE IV Last administered on 06/05/16 16:13; Start 06/05/16 at 13:15; Stop 06/05/16 at 13:44; Status DC Diltiazem HCl/ Sodium Chloride (Cardizem Inj/NS Inj) 125 ml @ 0 mls/hr TITRATE IV Last administered on 06/11/16 21:47; Start 06/05/16 at 13:30 Diltiazem HCl (Cardizem Inj) 20 mg ONCE ONCE IV Last administered on 06/05/16 14:35; Start 06/05/16 at 14:15; Stop 06/05/16 at 14:16; Status DC Diltiazem HCl 20 mg 20 mg ONCE ONCE IV Last administered on 06/05/16 16:16; Start 06/05/16 at 14:15; Stop 06/05/16 at 14:16; Status DC Pharmacy Profile Note 0 ml @ 0 mls/hr UNSCH OTHER ; Start 06/05/16 at 15:45 Cefepime HCl/ Sodium Chloride (Maxipime Inj/NS Inj) 100 ml @ 200 mls/hr Q12H IV Last administered on 06/06/16 14:58; Start 06/06/16 at 02:00; Stop 06/06/16 at 19:04; Status DC Acetaminophen (Tylenol) 650 mg Q4H PRN PO FEVER/ PAIN 1-5 Last administered on 06/05/16 19:27; Start 06/05/16 at 15:45 Acetaminophen/ Hydrocodone Bitart ([place] 5-325 Mg) 1 tab Q4H PRN PO PAIN 6-10 Last administered on 06/12/16 04:32; Start 06/05/16 at 15:45 Hydromorphone HCl (Dilaudid Pf Inj) 0.2 mg Q4H PRN IV PUSH BREAKTHROUGH PAIN Last administered on 06/05/16 16:47; Start 06/05/16 at 15:45 Ondansetron HCl (Zofran Inj) 4 mg Q8HR PRN IV PUSH NAUSEA; Start 06/05/16 at 15: 45 Albuterol Sulfate (Proair Hfa Inh) 2 puff QID INH Last administered on 20:13; Start 06/05/16 at 18:00; Status Hold Aspirin (Aspirin Chew) 81 mg DAILY CHEW Last administered on 06/11/16 08:54; Start 06/06/16 at 09:00 Budesonide/ Formoterol Fumarate (Symbicort 160-4.5 Inh) 2 puff BID INH Last administered on 06/11/16 20:13; Start 06/05/16 at 21:00 Lisinopril (Prinivil) 20 mg DAILY PO Last administered on 06/11/16 08:54; Start 06/06/16 at 09:00 Tiotropium [place] (Spiriva Inh) 18 mcg DAILY INH Last administered on 08:54; Start 06/06/16 at 09:00 Diltiazem HCl (Cardizem Cd) 180 mg DAILY PO Last administered on 06/11/16 08:54 ; Start 06/06/16 at 09:00 Insulin Detemir (Levemir Inj) 8 units HS SQ Last administered on 06/09/16 20:35 ; Start 06/05/16 at 21:00; Status Hold Insulin Detemir (Levemir Inj) 12 units DAILY SQ Last administered on 06/09/16 09:00; Start 06/06/16 at 09:00; Status Hold Naphazoline HCl (Clear Eyes Redness Relief 0.012% Opth Soln) 1 drop QID PRN EACH EYE EYE ITCH; Start 06/05/16 at 16:30 Albuterol Sulfate (Albuterol Neb) 0.63 mg Q6HR NEB PRN NEB SHORTNESS OF BREATH ; Start 06/05/16 at 15:45; Stop 06/09/16 at 09:32; Status DC Dextrose (D50w (Vial) Inj) 25 ml UNSCH PRN IV PUSH HYPOGLYCEMIA-SEE COMMENTS Last administered on 06/10/16 06:34; Start 06/05/16 at 15:45 Glucagon (Glucagon Inj) 1 mg UNSCH PRN OTHER HYPOGLYCEMIA-SEE COMMENTS; Start 06/05/16 at 15:45 Insulin Aspart 1 1 ACHS SLIDING SCALE SQ Last administered on 06/12/16 06:19; Start 06/05/16 at 16:00 Vancomycin HCl/ Sodium Chloride (Vancomycin Inj/ NS 500 ml Inj) 515 ml @ 250 mls/hr Q18H IV Last administered on 06/09/16 06:09; Start 06/06/16 at 06:00; Stop 06/09/16 at 10:22; Status DC Miscellaneous Information SPECIFIC LAB TO BE DRAWN:VANCOMYCIN TROUGH DATE TO... ONCE ONCE XX ; Start 06/08/16 at 11:45; Stop 06/08/16 at 11:46; Status DC Sodium Chloride (NS 500 ml Inj) 500 ml @ 500 mls/hr BOLUS ONCE IV Last administered on 06/05/16 20:36; Start 06/05/16 at 20:15; Stop 06/05/16 at 21:14; Status DC Albuterol/ Ipratropium (Duoneb Neb) 1 ampule Q4HR NEB PRN NEB SOB/WHEEZING; Start 06/05/16 at 20:30; Stop 06/09/16 at 09:30; Status DC Alprazolam (Xanax) 0.25 mg Q12HR PRN PO ANXIETY Last administered on 06/11/16 21:47; Start 06/06/16 at 13:00 Zolpidem Tartrate (Ambien) 5 mg HS PRN PO SLEEP Last administered on 06/11/16 21:47; Start 06/06/16 at 21:00 Furosemide (Lasix Inj) 20 mg ONCE ONCE IV PUSH Last administered on 06/08/16 08:45; Start 06/08/16 at 08:45; Stop 06/08/16 at 08:52; Status DC Miscellaneous Information SPECIFIC LAB TO BE DRAWN:VANCOMY... ONCE ONCE XX Last administered on 06/09/16 05:45; Start 06/09/16 at 05:45; Stop 06/09/16 at 05: 46; Status DC Furosemide (Lasix Inj) 40 mg STK-MED ONCE .ROUTE ; Start 06/08/16 at 17:02; Stop 06/08/16 at 17:03; Status DC Albuterol/ Ipratropium (Duoneb Neb) 1 ampule Q4HR NEB NEB Last administered on 06/12/16 07:52; Start 06/09/16 at 12:00 Albuterol Sulfate (Albuterol Neb) 0.63 mg Q2HR NEB PRN NEB SHORTNESS OF BREATH ; Start 06/09/16 at 10:00 Potassium Chloride 20 meq 20 meq ONCE ONCE PO Last administered on 06/09/16 09 :30; Start 06/09/16 at 09:30; Stop 06/09/16 at 09:45; Status DC Vancomycin HCl/ Sodium Chloride (Vancomycin Inj/ NS 250 ml Inj) 250 ml @ 250 mls/hr Q12H IV Last administered on 06/10/16 06:45; Start 06/09/16 at 18:00; Stop 06/10/16 at 21:19; Status DC Miscellaneous Information SPECIFIC LAB TO BE DILLAN... ONCE ONCE XX ; Start at 17:45; Stop 06/10/16 at 17:46; Status DC Furosemide (Lasix Inj) 20 mg DAILY IV PUSH Last administered on 06/11/16 08:54 ; Start 06/09/16 at 12:30 Potassium Chloride (KCl) 20 meq DAILY PO Last administered on 06/11/16 08:54; Start 06/09/16 at 12:30 Guaifenesin/ Codeine Phosphate (Robitussin Ac 200-20 Mg/10 ml Liq) 10 ml Q6H PRN PO COUGH Last administered on 06/12/16 06:19; Start 06/10/16 at 10:00 Lidocaine HCl (Xylocaine 2% Inj) 100 mg STK-MED ONCE .ROUTE ; Start 06/10/16 at 16:21; Stop 06/10/16 at 16:22; Status DC Lidocaine HCl 50 ml 50 ml STK-MED ONCE .ROUTE ; Start 06/10/16 at 16:34; Stop 06/10/16 at 16:35; Status DC Vancomycin HCl/ Sodium Chloride (Vancomycin Inj/ NS 250 ml Inj) 250 ml @ 250 mls/hr Q24H IV Last administered on 06/11/16 08:53; Start 06/11/16 at 08:00; Stop 06/11/16 at 09:09; Status DC Miscellaneous Information SPECIFIC LAB TO BE DRAWN:VA... ONCE ONCE XX ; Start 06/11/16 at 07:45; Stop 06/11/16 at 07:46; Status DC Vancomycin HCl/ Sodium Chloride (Vancomycin Inj/ NS 500 ml Inj) 515 ml @ 250 mls/hr Q18H IV Last administered on 06/11/16 20:12; Start 06/11/16 at 20:00 Miscellaneous Information SPECIFIC LAB TO BE DRAWN:VANCOMYCIN TROUGH DATE TO... ONCE ONCE XX ; Start 06/13/16 at 07:45; Stop 06/13/16 at 07:46 Methylprednisolone Sodium Succinate (SoluMEDROL INJ) 40 mg Q6H IV PUSH Last administered on 06/12/16 04:32; Start 06/11/16 at 11:00 Docusate Sodium 100 mg 100 mg BID PRN PO CONSTIPATION; Start 06/11/16 at 10:30 Levofloxacin/ Dextrose (Levaquin 500 Mg Premix Inj) 100 ml @ 100 mls/hr Q24H IV Last administered on 06/11/16 18:33; Start 06/11/16 at 18:00 A/P Assessment and Plan A/P - severe sepsis due to cellulitis of the right upper extremity/ right olecranon bursitis- venous doppler of the upper extremities with no DVT-XR of the right elbow with possible olecranon bursitis- US of the right upper extremity with a complex mass overlying the right third finger- s/p I/D of the right nand mass/fluid collection. continue with broad-spectrum IV antibiotics- keep the right hand elevated- continue pain control- follow the cultures. blood cultures negative- ID/hand surgery and ortho following; recommended conservative treatment of olecranon bursitis. -SVT- due to sepsis- - dc'ed IV cardizem and continue po cardizem- cardiology consult appreciated. -ischemic cardiomyopathy with mild levation of troponin- s/p stent placement; continue aspirin and lisinopril elevated troponin likely due to tachycardia/ sepsis echo with EF 35% cardiology consult appreciated. -acute on chronic systolic CHF- continue IV diuretic and monitor. -COPD exacerbation- improving-continue IV steroid ; start to taper down- continue antibiotic- continue neb treatment- will monitor. of note the patient is on home oxygen -diabetes with hypoglycemic episode ;with no further recurrence- resume levemir - accu-check with SSI -anemia of chronic disease- s/p PRBC transfusion with improved H/H- will monitor stool occult blood pending- -DVT prophylaxis ; SCD's-no chemical prophylaxis for now due to anemia. -consulted PT/OT Pankaj Booth MD Jun 12, 2016 08:26
[2016-06-12] MEDS: DOCUSATE SODIUM 100 MG CAP PO PRN ×2 (08:53→18:18)
[2016-06-12] MEDS: ASPIRIN 81 MG CHEW TAB CHEW SCH (08:54)
[2016-06-12] MEDS: POTASSIUM CHLORIDE 20 MEQ CONTROLLED RELEASE TAB PO SCH (08:54)
[2016-06-12] MEDS: DILTIAZEM-CD 180 MG CAP ER PO SCH (08:54)
[2016-06-12] MEDS: LISINOPRIL 20 MG TAB PO SCH (08:54)
[2016-06-12] MEDS: FUROSEMIDE 20 MG/2 ML VIAL IV PUSH SCH (08:54)
[2016-06-12] MEDS: TIOTROPIUM BROMIDE 18 MCG INH INH SCH (08:56)
[2016-06-12] MEDS: BUDESONIDE-FORMOTEROL 160/4.5 MCG INHALER INH SCH ×2 (08:56→21:00)
--- NOTE | 2016-06-12 10:53 | HHI.PR ---
Subjective Remarks complains of less pain no fever Objective Vital Signs Date Time Temp Pulse Resp B/P Pulse Ox O2 Delivery O2 Flow Rate FiO2 06/12/16 09:38 102 06/12/16 08:00 83 06/12/16 07:53 92 Nasal Cannula 3.00 06/12/16 07:42 97.4 91 20 113/59 96 06/12/16 07:42 96 Nasal Cannula 3.00 06/12/16 07:00 80 06/12/16 06:26 83 06/12/16 05:49 79 06/12/16 04:51 93 Nasal Cannula 4.00 06/12/16 04:00 82 06/12/16 03:00 97.4 95 104/52 95 06/12/16 03:00 79 06/12/16 02:00 82 06/12/16 01:00 88 06/12/16 00:00 84 06/11/16 23:00 90 06/11/16 23:00 97.0 91 103/49 95 06/11/16 22:00 92 06/11/16 21:00 94 06/11/16 20:00 96 06/11/16 19:00 108 06/11/16 19:00 90 Nasal Cannula 4.00 06/11/16 19:00 98.2 106 104/60 90 06/11/16 16:20 98.9 107 17 114/65 94 06/11/16 12:00 98.6 111 19 131/70 96 06/11/16 11:17 97 06/11/16 11:11 99 06/11/16 11:09 98.3 107 27 134/79 I/O 06/11/16 06/11/16 06/11/16 06/12/16 06/12/16 06/12/16 07:00 15:00 23:00 07:00 15:00 23:00 Intake Total 820 ml 180 ml 240 ml Output Total 175 ml 200 ml Balance 645 ml 180 ml 40 ml Intake Oral 680 ml 240 ml IV Total 140 ml 180 ml Output Urine Total 175 ml 200 ml examination right hand: packing in place decreased swelling no drainage surrounding induration noted cultures: MRSA Result Diagram: 06/11/1652106/11/16521 Assessment and Plan Assessment and Plan 76 year old male s/p incision and drainage right hand abscess POD 2 packing removed, wound cleaned with normal saline steri strips applied to loosely approximate the wound wound also left open for drainage dry dressing applied daily dressing changes antibiotics based on ID recommendations hand surgery will follow. Frantz Wellington MD Jun 12, 2016 10:53
[2016-06-12] MEDS: VANCOMYCIN INJ 1,500 MG in SODIUM CHLORID 0.9% 500 ML INJ 500 ML IV SCH (14:45)
[2016-06-12] MEDS: LEVOFLOXACIN 500 MG PREMIX INJ 100 ML IV SCH (18:13)
[2016-06-12] MEDS: INSULIN DETEMIR 100 UNITS/ML VIAL SQ SCH (21:00)
[2016-06-13] VITALS (30 sets, daily range): BP systolic 121–150; BP diastolic 66–76; PULSE 93–114; RESP 20–22; TEMP 97.4–98; O2SAT 92–97
[2016-06-13] MEDS: RESP: ALBUTEROL 2.5 MG/IPRATROPIUM 0.5 MG NEB (SCH) NEB ×4 (04:05→11:11)
[2016-06-13] MEDS: methylPREDNISolone SOD SUCC 40 MG/1 ML VIAL IV PUSH SCH ×3 (05:56→22:06)
[2016-06-13] MEDS: INSULIN ASPART SUPPLEMENTAL SCALE SQ SCH ×4 (07:00→22:06)
[2016-06-13] MEDS: guaiFENesin/CODEINE SYRUP 200 MG/20 MG/10 ML CUP PO PRN ×2 (07:14→22:15)
[2016-06-13 07:22] LABS: AUTOMATED NEUTROPHIL # 3.5 TH/MM3 (1.8-7.7); BASOPHIL % 0.6 % (0.0-2.0); HEMATOCRIT 25.7 % (39.0-51.0); LYMPH % 7.4 % (9.0-44.0); LYMPHOCYTE # 0.3 TH/MM3 (1.0-4.8); MEAN CELL VOLUME 87.3 FL (80.0-100.0); MEAN CORPUSCULAR HEMOGLOBIN 29.3 PG (27.0-34.0); MEAN CORPUSCULAR HGB CONC 33.6 % (32.0-36.0); MONO % 3.9 % (0.0-8.0); NEUT % 88.1 % (16.0-70.0); PLATELET COUNT 162 TH/MM3 (150-450); RED BLOOD COUNT 2.94 MIL/MM3 (4.50-5.90); RED CELL DISTRIBUTION WIDTH 23.8 % (11.6-17.2); WHITE BLOOD COUNT 3.9 TH/MM3 (4.0-11.0)
[2016-06-13 07:31] LABS: HEMO FLAGS AUTO DIFF
[2016-06-13 07:34] LABS: POTASSIUM 4.4 MEQ/L (3.5-5.1)
[2016-06-13] MEDS ORDERED: PHARMACY ORDERED LAB XX ONE (07:45)
[2016-06-13 08:22] LABS: TARGET CELLS 1+ (NORMAL)
[2016-06-13 08:23] LABS: SCAN/DIFF AUTO DIFF CONFIRMED
[2016-06-13] MEDS: ASPIRIN 81 MG CHEW TAB CHEW SCH (08:24)
[2016-06-13] MEDS: DILTIAZEM-CD 180 MG CAP ER PO SCH (08:24)
[2016-06-13] MEDS: ACETAMINOPHEN/HYDROcodone 325 MG/5 MG TAB PO PRN ×3 (08:24→20:12)
[2016-06-13] MEDS: LISINOPRIL 20 MG TAB PO SCH (08:25)
[2016-06-13] MEDS: BUDESONIDE-FORMOTEROL 160/4.5 MCG INHALER INH SCH ×2 (08:26→21:00)
[2016-06-13] MEDS: VANCOMYCIN INJ 1,500 MG in SODIUM CHLORID 0.9% 500 ML INJ 500 ML IV SCH (08:26)
[2016-06-13] MEDS: POTASSIUM CHLORIDE 20 MEQ CONTROLLED RELEASE TAB PO SCH (08:26)
[2016-06-13] MEDS: SODIUM CHLORIDE 0.9% FLUSH 5 ML FLUSH IVF PRN (08:26)
[2016-06-13] MEDS: FUROSEMIDE 20 MG/2 ML VIAL IV PUSH SCH (08:26)
[2016-06-13] MEDS: TIOTROPIUM BROMIDE 18 MCG INH INH SCH (09:00)
[2016-06-13] MEDS: DOCUSATE SODIUM 100 MG CAP PO PRN (12:38)
--- NOTE | 2016-06-13 15:48 | HHI.PR ---
Subjective Remarks complains of mild pain on making a fist right hand no fever Objective Vital Signs Date Time Temp Pulse Resp B/P Pulse Ox O2 Delivery O2 Flow Rate FiO2 06/13/16 14:44 102 06/13/16 13:00 102 06/13/16 12:15 97.6 106 22 142/74 96 06/13/16 12:00 112 06/13/16 11:00 98 06/13/16 10:00 100 06/13/16 09:00 104 06/13/16 08:00 110 06/13/16 08:00 97 Nasal Cannula 4.00 06/13/16 07:55 92 Nasal Cannula 4.00 06/13/16 07:00 106 06/13/16 07:00 97.4 113 128/72 97 06/13/16 06:03 99 06/13/16 05:05 107 06/13/16 04:00 98.0 107 20 121/68 95 06/13/16 04:00 99 06/13/16 03:00 99 06/13/16 02:00 99 06/13/16 01:00 98 06/13/16 00:00 98 06/13/16 00:00 98.0 109 20 131/74 93 06/12/16 23:00 109 06/12/16 22:00 107 06/12/16 21:00 110 06/12/16 20:38 98.0 109 20 135/73 96 06/12/16 20:20 94 Nasal Cannula 4.00 06/12/16 20:00 96 Nasal Cannula 4.00 06/12/16 20:00 105 06/12/16 19:00 103 06/12/16 18:00 102 06/12/16 17:00 108 06/12/16 16:00 84 I/O 06/12/16 06/12/16 06/12/16 06/13/16 06/13/16 06/13/16 07:00 15:00 23:00 07:00 15:00 23:00 Intake Total 240 ml 1100 ml 120 ml Output Total 200 ml 150 ml Balance 40 ml 950 ml 120 ml Intake Oral 240 ml 600 ml 120 ml IV Total 500 ml Output Urine Total 200 ml 150 ml right hand: incision site clean and dry surrounding induration noted able to make a fist. intact sensation distally cultures: MRSA Result Diagram: 06/13/16 0455 06/13/16 0445 Assessment and Plan Assessment and Plan 76 year old male s/p incision and drainage right hand abscess POD 3 wound cleaned with normal saline wound also left open for drainage dry dressing applied daily dressing changes antibiotics based on ID recommendations cleared from hand surgery. Frantz Wellington MD Jun 13, 2016 15:48
--- NOTE | 2016-06-13 16:16 | HHI.PR ---
Subjective Remarks Follow-up COPD. Patient complains of THOMAS worse than usual. Currently on 3.5 L. Discussed with RN Objective Vitals Vital Signs Date Time Temp Pulse Resp B/P Pulse Ox O2 Delivery O2 Flow Rate FiO2 06/13/16 14:44 102 06/13/16 13:00 102 06/13/16 12:15 97.6 106 22 142/74 96 06/13/16 12:00 112 06/13/16 11:00 98 06/13/16 10:00 100 06/13/16 09:00 104 06/13/16 08:00 110 06/13/16 08:00 97 Nasal Cannula 4.00 06/13/16 07:55 92 Nasal Cannula 4.00 06/13/16 07:00 106 06/13/16 07:00 97.4 113 128/72 97 06/13/16 06:03 99 06/13/16 05:05 107 06/13/16 04:00 98.0 107 20 121/68 95 06/13/16 04:00 99 06/13/16 03:00 99 06/13/16 02:00 99 06/13/16 01:00 98 06/13/16 00:00 98 06/13/16 00:00 98.0 109 20 131/74 93 06/12/16 23:00 109 06/12/16 22:00 107 06/12/16 21:00 110 06/12/16 20:38 98.0 109 20 135/73 96 06/12/16 20:20 94 Nasal Cannula 4.00 06/12/16 20:00 96 Nasal Cannula 4.00 06/12/16 20:00 105 06/12/16 19:00 103 06/12/16 18:00 102 06/12/16 17:00 108 I/O 06/12/16 06/12/16 06/12/16 06/13/16 06/13/16 06/13/16 07:00 15:00 23:00 07:00 15:00 23:00 Intake Total 240 ml 1100 ml 120 ml Output Total 200 ml 150 ml Balance 40 ml 950 ml 120 ml Intake Oral 240 ml 600 ml 120 ml IV Total 500 ml Output Urine Total 200 ml 150 ml Result Diagram: 06/13/16 0455 06/13/16 0445 Imaging Last Impressions Chest X-Ray 06/11/16 Signed Impressions: Service Date/Time: Saturday, June 11, 2016 10:32 - CONCLUSION: 1. Patchy bibasilar infiltrates consistent with atelectasis and/or pneumonia. Clinical. Correlation is recommended. Santiago Mccartney MD Upper Extremity Ultrasound 06/09/16 Signed Impressions: Service Date/Time: Thursday, June 09, 2016 18:12 - CONCLUSION: 1. Complex circumscribed soft tissue mass measuring up to 2.4 x 1.6 x 0.8 cm overlying the third finger with adjacent complex fluid collection measuring 8 mm. Etiology unclear. Stalin Alexis MD Elbow X-Ray 06/05/16 Signed Impressions: Service Date/Time: June 17:02 - CONCLUSION: Minimal arthritic findings. Prominent soft tissue swelling of the olecranon process indicating possible olecranon bursitis. Matt Sapp MD Objective Remarks GENERAL: This is a well-nourished, well-developed patient, in no apparent distress on nasal cannula. CARDIOVASCULAR: Regular rate and regular rhythm without murmurs, gallops, or rubs. RESPIRATORY: Decreased breath sounds GASTROINTESTINAL: Abdomen soft, non-tender, nondistended. Normal, active bowel sounds MUSCULOSKELETAL: edema , erythema and pain to the right upper extremity - bilateral pedal edema noted. NEURO: Alert & Oriented x4 to person, place, time, situation. Moves all ext x4 Procedures Incision and drainage of right hand abscess A/P Problem List: (1) SVT (supraventricular tachycardia) ICD Code: I47.1 Status: Acute (2) Severe sepsis ICD Code: A41.9 Status: Acute (3) COPD with acute exacerbation ICD Code: J44.1 Status: Acute (4) Sepsis ICD Code: A41.9 Status: Acute (5) Cellulitis of right upper extremity ICD Code: L03.113 Status: Acute (6) Abscess of hand, right ICD Code: L02.511 Status: Acute (7) Olecranon bursitis, right elbow ICD Code: M70.21 Status: Acute Assessment and Plan - severe sepsis due to cellulitis of the right upper extremity/ right olecranon bursitis- venous doppler of the upper extremities with no DVT-XR of the right elbow with possible olecranon bursitis- US of the right upper extremity with a complex mass overlying the right third finger- s/p I/D of the right nand mass/fluid collection. continue with vancomycin culture positive for MRSA, discontinue Levaquin- keep the right hand elevated- continue pain control- follow the cultures. blood cultures negative- ID/hand surgery and ortho following; recommended conservative treatment of olecranon bursitis. We'll contact ID regarding antibiotic recommendations -SVT- due to sepsis- - dc'ed IV cardizem and continue po cardizem- cardiology consult appreciated. -ischemic cardiomyopathy with mild levation of troponin- s/p stent placement; continue aspirin and lisinopril elevated troponin likely due to tachycardia/ sepsis echo with EF 35% cardiology consult appreciated. -acute on chronic systolic CHF- continue IV diuretic and monitor. Repeat BMP in the morning -COPD exacerbation- improving but still with significant dyspnea on exertion and requiring more oxygen than usual-continue IV steroid ; start to taper down- continue neb treatment- will monitor. of note the patient is on home oxygen 2 L -diabetes with hypoglycemic episode ;with no further recurrence-upper glycemic secondary to steroids. Adjust Levemir accordingly.- accu-check with SSI -anemia of chronic disease- s/p PRBC transfusion with improved H/H- will monitor stool occult blood pending- -DVT prophylaxis ; SCD's-no chemical prophylaxis for now due to anemia. -consulted PT/OT Discharge Planning Not stable for discharge secondary to pulmonary status Jamey Ny MD Jun 13, 2016 16:16 ; Start 06/09/16 at 12:30 Potassium Chloride (KCl) 20 meq DAILY PO Last administered on 06/11/16 08:54; Start 06/09/16 at 12:30 Guaifenesin/ Codeine Phosphate (Robitussin Ac 200-20 Mg/10 ml Liq) 10 ml Q6H PRN PO COUGH Last administered on 06/12/16 06:19; Start 06/10/16 at 10:00 Lidocaine HCl (Xylocaine 2% Inj) 100 mg STK-MED ONCE .ROUTE ; Start 06/10/16 at 16:21; Stop 06/10/16 at 16:22; Status DC Lidocaine HCl 50 ml 50 ml STK-MED ONCE .ROUTE ; Start 06/10/16 at 16:34; Stop 06/10/16 at 16:35; Status DC Vancomycin HCl/ Sodium Chloride (Vancomycin Inj/ NS 250 ml Inj) 250 ml @ 250 mls/hr Q24H IV Last administered on 06/11/16 08:53; Start 06/11/16 at 08:00; Stop 06/11/16 at 09:09; Status DC Miscellaneous Information SPECIFIC LAB TO BE DRAWN:VA... ONCE ONCE XX ; Start 06/11/16 at 07:45; Stop 06/11/16 at 07:46; Status DC Vancomycin HCl/ Sodium Chloride (Vancomycin Inj/ NS 500 ml Inj) 515 ml @ 250 mls/hr Q18H IV Last administered on 06/11/16 20:12; Start 06/11/16 at 20:00 Miscellaneous Information SPECIFIC LAB TO BE DRAWN:VANCOMYCIN TROUGH DATE TO... ONCE ONCE XX ; Start 06/13/16 at 07:45; Stop 06/13/16 at 07:46 Methylprednisolone Sodium Succinate (SoluMEDROL INJ) 40 mg Q6H IV PUSH Last administered on 06/12/16 04:32; Start 06/11/16 at 11:00 Docusate Sodium 100 mg 100 mg BID PRN PO CONSTIPATION; Start 06/11/16 at 10:30 Levofloxacin/ Dextrose (Levaquin 500 Mg Premix Inj) 100 ml @ 100 mls/hr Q24H IV Last administered on 06/11/16 18:33; Start 06/11/16 at 18:00 Plan A/P Assessment and Plan A/P - severe sepsis due to cellulitis of the right upper extremity/ right olecranon bursitis- venous doppler of the upper extremities with no DVT-XR of the right elbow with possible olecranon bursitis- US of the right upper extremity with a complex mass overlying the right third finger- s/p I/D of the right nand mass/fluid collection. continue with broad-spectrum IV antibiotics- keep the right hand elevated- continue pain control- follow the cultures. blood cultures negative- ID/hand surgery and ortho following; recommended conservative treatment of olecranon bursitis. -SVT- due to sepsis- - dc'ed IV cardizem and continue po cardizem- cardiology consult appreciated. -ischemic cardiomyopathy with mild levation of troponin- s/p stent placement; continue aspirin and lisinopril elevated troponin likely due to tachycardia/ sepsis echo with EF 35% cardiology consult appreciated. -acute on chronic systolic CHF- continue IV diuretic and monitor. -COPD exacerbation- improving-continue IV steroid ; start to taper down- continue antibiotic- continue neb treatment- will monitor. of note the patient is on home oxygen -diabetes with hypoglycemic episode ;with no further recurrence- resume levemir - accu-check with SSI -anemia of chronic disease- s/p PRBC transfusion with improved H/H- will monitor stool occult blood pending- -DVT prophylaxis ; SCD's-no chemical prophylaxis for now due to anemia. -consulted PT/OT Procedures none A/P Problem List: (1) SVT (supraventricular tachycardia) ICD Code: I47.1 Status: Acute (2) Severe sepsis ICD Code: A41.9 Status: Acute (3) COPD with acute exacerbation ICD Code: J44.1 Status: Acute (4) Sepsis ICD Code: A41.9 Status: Acute (5) Cellulitis of right upper extremity ICD Code: L03.113 Status: Acute (6) Abscess of hand, right ICD Code: L02.511 Status: Acute (7) Olecranon bursitis, right elbow ICD Code: M70.21 Status: Acute Jamey Ny MD Jun 13, 2016 16:16
[2016-06-13] MEDS ORDERED: INSULIN DETEMIR 100 UNITS/ML VIAL SQ SCH (21:00)
[2016-06-13] MEDS: RESP: ALBUTEROL 0.63 MG/3 ML NEB (PRN) NEB (21:13)
[2016-06-13] MEDS: ALPRAZolam 0.25 MG TAB PO PRN (22:05)
[2016-06-13] MEDS: ZOLPIDEM TARTRATE 5 MG TAB PO PRN (22:05)
[2016-06-14] VITALS (29 sets, daily range): BP systolic 123–163; BP diastolic 65–85; PULSE 86–120; RESP 20–26; TEMP 96.5–98; O2SAT 79–100
[2016-06-14 04:53] LABS: BASOPHIL % 0.5 % (0.0-2.0); HEMATOCRIT 26.4 % (39.0-51.0); LYMPH % 8.4 % (9.0-44.0); LYMPHOCYTE # 0.4 TH/MM3 (1.0-4.8); MEAN CELL VOLUME 87.7 FL (80.0-100.0); MEAN CORPUSCULAR HGB CONC 34.2 % (32.0-36.0); MONO % 3.5 % (0.0-8.0); NEUT % 87.6 % (16.0-70.0); PLATELET COUNT 194 TH/MM3 (150-450); RED BLOOD COUNT 3.01 MIL/MM3 (4.50-5.90); RED CELL DISTRIBUTION WIDTH 24.5 % (11.6-17.2); WHITE BLOOD COUNT 4.6 TH/MM3 (4.0-11.0)
[2016-06-14 05:00] LABS: HEMO FLAGS AUTO DIFF
[2016-06-14 05:11] LABS: BICARBONATE 27.7 MEQ/L (21.0-32.0); POTASSIUM 4.3 MEQ/L (3.5-5.1)
[2016-06-14] MEDS: guaiFENesin/CODEINE SYRUP 200 MG/20 MG/10 ML CUP PO PRN ×4 (05:45→21:13)
[2016-06-14] MEDS: RESP: ALBUTEROL 0.63 MG/3 ML NEB (PRN) NEB ×3 (05:50→19:52)
[2016-06-14] MEDS: DILTIAZEM-CD 180 MG CAP ER PO SCH (06:46)
[2016-06-14] MEDS: INSULIN ASPART SUPPLEMENTAL SCALE SQ SCH ×4 (07:00→21:24)
[2016-06-14] MEDS: VANCOMYCIN INJ 1,250 MG in SODIUM CHLOR 0.9% 250 ML INJ 250 ML IV SCH (08:00)
[2016-06-14] MEDS: FUROSEMIDE 20 MG/2 ML VIAL IV PUSH SCH (08:50)
[2016-06-14] MEDS: POTASSIUM CHLORIDE 20 MEQ CONTROLLED RELEASE TAB PO SCH (08:51)
[2016-06-14] MEDS: LISINOPRIL 20 MG TAB PO SCH (08:51)
[2016-06-14] MEDS: methylPREDNISolone SOD SUCC 40 MG/1 ML VIAL IV PUSH SCH ×2 (08:51→20:06)
[2016-06-14] MEDS: ASPIRIN 81 MG CHEW TAB CHEW SCH (08:51)
[2016-06-14] MEDS: INSULIN DETEMIR 100 UNITS/ML VIAL SQ SCH ×2 (08:52→21:14)
[2016-06-14] MEDS: PANTOPRAZOLE SOD 40 MG DELAYED RELEASE TAB PO SCH (08:53)
[2016-06-14] MEDS: BUDESONIDE-FORMOTEROL 160/4.5 MCG INHALER INH SCH ×2 (08:53→20:07)
[2016-06-14] MEDS: TIOTROPIUM BROMIDE 18 MCG INH INH SCH (08:53)
[2016-06-14] MEDS ORDERED: INSULIN DETEMIR 100 UNITS/ML VIAL SQ SCH (09:00)
[2016-06-14 09:44] LABS: BANDS 1 % (0-6); CORRECTED NUCLEATED RBC 2 /100 WBC (0-0); NEUTROPHIL # MANUAL DIFF 4.3 TH/MM3 (1.8-7.7); POLYS (SEG NEUTROPHILS) 93 % (16-70); WBC DIFF SAMPLE 100
[2016-06-14 09:45] LABS: PLATELET ESTIMATE SMEAR NORMAL (NORMAL); PLATELET MORPHOLOGY NORMAL (NORMAL); SCAN/DIFF FINAL DIFF MANUAL; TARGET CELLS 1+ (NORMAL)
--- NOTE | 2016-06-14 13:52 | HHI.PR ---
Subjective Remarks Follow-up COPD. Difficulty with breathing this morning and was coughing out junk. He wants to undergo GI workup in light of guaiac-positive stools and anemia. Discussed with RN, patient will not be refusing Levemir Objective Vitals Vital Signs Date Time Temp Pulse Resp B/P Pulse Ox O2 Delivery O2 Flow Rate FiO2 06/14/16 13:00 112 06/14/16 12:00 86 06/14/16 11:00 100 06/14/16 11:00 97.5 101 20 130/70 100 06/14/16 10:00 116 06/14/16 09:00 96 06/14/16 08:09 100 Nasal Cannula 5.00 06/14/16 08:00 88 06/14/16 07:54 96.5 96 20 141/74 100 06/14/16 07:00 110 06/14/16 07:00 100 Nasal Cannula 4.00 06/14/16 06:30 97 Nasal Cannula 4.00 06/14/16 06:04 120 06/14/16 05:40 79 Nasal Cannula 3.00 06/14/16 05:30 98.0 93 26 155/85 79 06/14/16 05:25 106 06/14/16 04:22 94 06/14/16 04:00 95 Nasal Cannula 3.00 06/14/16 03:18 94 06/14/16 02:00 99 06/14/16 01:00 96 06/14/16 00:00 94 06/14/16 00:00 95 Nasal Cannula 3.00 06/14/16 00:00 98.0 97 20 123/65 93 06/13/16 23:00 114 06/13/16 22:00 112 06/13/16 21:13 93 Nasal Cannula 3.00 06/13/16 21:00 104 06/13/16 20:14 98.0 109 20 150/76 93 06/13/16 20:00 96 Nasal Cannula 4.00 06/13/16 20:00 106 06/13/16 19:00 100 06/13/16 18:16 100 06/13/16 17:34 96 Nasal Cannula 3.00 06/13/16 17:00 106 06/13/16 16:00 104 06/13/16 15:15 97.4 99 22 143/66 96 06/13/16 15:00 93 06/13/16 14:44 102 I/O 06/13/16 06/13/16 06/13/16 06/14/16 06/14/16 06/14/16 07:00 15:00 23:00 07:00 15:00 23:00 Intake Total 120 ml 980 ml 244 ml Output Total 450 ml 400 ml Balance 120 ml 530 ml -156 ml Intake Oral 120 ml 480 ml 240 ml IV Total 500 ml 4 ml Output Urine Total 450 ml 400 ml # Bowel Movements 1 Result Diagram: 06/14/16 0340 06/14/16 0340 Imaging Last Impressions Chest X-Ray 06/11/16 0000 Signed Impressions: Service Date/Time: Saturday, June 11, 2016 10:32 - CONCLUSION: 1. Patchy bibasilar infiltrates consistent with atelectasis and/or pneumonia. Clinical. Correlation is recommended. Santiago Mccartney MD Upper Extremity Ultrasound 06/09/16 0000 Signed Impressions: Service Date/Time: Thursday, June 09, 2016 18:12 - CONCLUSION: 1. Complex circumscribed soft tissue mass measuring up to 2.4 x 1.6 x 0.8 cm overlying the third finger with adjacent complex fluid collection measuring 8 mm. Etiology unclear. Stalin Alexis MD Elbow X-Ray 06/05/16 0000 Signed Impressions: Service Date/Time: June 17:02 - CONCLUSION: Minimal arthritic findings. Prominent soft tissue swelling of the olecranon process indicating possible olecranon bursitis. Matt Sapp MD Objective Remarks GENERAL: This is a well-nourished, well-developed patient, in no apparent distress on nasal cannula. CARDIOVASCULAR: Regular rate and regular rhythm without murmurs, gallops, or rubs. RESPIRATORY: Decreased breath sounds with mild expiratory wheezes GASTROINTESTINAL: Abdomen soft, non-tender, nondistended. Normal, active bowel sounds MUSCULOSKELETAL: edema , erythema and pain to the right upper extremity - bilateral pedal edema noted. NEURO: Alert & Oriented x4 to person, place, time, situation. Moves all ext x4 Procedures Incision and drainage of right hand abscess A/P Problem List: (1) SVT (supraventricular tachycardia) ICD Code: I47.1 Status: Acute (2) Severe sepsis ICD Code: A41.9 Status: Acute (3) COPD with acute exacerbation ICD Code: J44.1 Status: Acute (4) Sepsis ICD Code: A41.9 Status: Acute (5) Cellulitis of right upper extremity ICD Code: L03.113 Status: Acute (6) Abscess of hand, right ICD Code: L02.511 Status: Acute (7) Olecranon bursitis, right elbow ICD Code: M70.21 Status: Acute Assessment and Plan - severe sepsis due to cellulitis of the right upper extremity/ right olecranon bursitis- venous doppler of the upper extremities with no DVT-XR of the right elbow with possible olecranon bursitis- US of the right upper extremity with a complex mass overlying the right third finger- s/p I/D of the right nand mass/fluid collection. continue with vancomycin culture positive for MRSA, discontinue Levaquin- keep the right hand elevated- continue pain control- follow the cultures. blood cultures negative- ID/hand surgery and ortho following; recommended conservative treatment of olecranon bursitis. ID was to continue IV vancomycin and will evaluate patient on Thursday -SVT- due to sepsis- - dc'ed IV cardizem and continue po cardizem- cardiology consult appreciated. -ischemic cardiomyopathy with mild levation of troponin- s/p stent placement 2001, follow-up angiogram 2 weeks ago no intervention needed per patient; continue aspirin and lisinopril elevated troponin likely due to tachycardia/ sepsis echo with EF 35% cardiology consult appreciated. -acute on chronic systolic CHF- continue IV diuretic and monitor. Repeat BMP in the morning -COPD exacerbation- improving but still with significant dyspnea on exertion and requiring more oxygen than usual-continue IV steroid ; start to taper down- continue neb treatment- will monitor. of note the patient is on home oxygen 2 L -diabetes with hypoglycemic episode ;with no further recurrence-upper glycemic secondary to steroids. Adjust Levemir accordingly.- accu-check with SSI. Patient counseled regarding compliance -anemia of chronic disease- s/p PRBC transfusion with improved H/H- will monitor stool occult blood positive 1. Start PPI and consult GI patient agrees -DVT prophylaxis ; SCD's-no chemical prophylaxis for now due to anemia. -consulted PT/OT Discharge Planning Not stable for discharge Jamey Ny MD Jun 14, 2016 13:52
--- NOTE | 2016-06-14 17:01 | MB ---
cc: BRUNILDA RPIETO M.D., MOHAMMADREZA MD DATE OF CONSULTATION: 06/14/2016. REASON FOR CONSULTATION: Anemia and heme-positive stools. PATIENT OF: Dr. Booth. HISTORY OF PRESENT ILLNESS: Mr. Garcia is a 76-year-old gentleman who was admitted with sepsis and supraventricular tachycardia. He had significant swelling in both his upper and lower extremities requiring incision and drainage of the right upper extremity by hand surgery. He says he has been doing better with that but now wants workup for his anemia and heme-positive stools. PAST MEDICAL HISTORY: 1. Coronary artery disease. 2. Hypertension. 3. Diabetes. 4. COPD. 5. Bladder cancer. PAST SURGICAL HISTORY: Significant for: 1. Cardiac stent placement. 2. Recent incision and drainage of the right upper extremity. CURRENT MEDICATIONS: 1. Insulin. 2. Protonix. 3. Vancomycin. 4. Solu-Medrol. 5. Lasix. 6. Albuterol inhaler. 7. Diltiazem. 8. Spiriva. 9. Prinivil. 10. Aspirin. 11. Xanax. 12. Hydromorphone. SOCIAL HISTORY: Ex-smoker and quit drinking many years ago. FAMILY HISTORY: Family history is noncontributory. PHYSICAL EXAMINATION: GENERAL: The physical exam reveals a well-nourished man in no apparent distress. VITAL SIGNS: Stable. HEAD AND NECK: Anicteric sclerae. CHEST: Bilateral air entry with rales. ABDOMEN: Abdomen is soft. Nontender. No hepatosplenomegaly. Bowel sounds are present. AFFIRMATIVE ACTION SPECIALIST: Nonfocal. RECTAL: Deferred at this time. LABS: Creatinine of 1.01. INR is 0.9. Hemoglobin is 9.0. IMPRESSION: Heme-positive stools with anemia. RECOMMENDATIONS: EGD, colonoscopy discussed with the patient. He is agreeable to proceed but he says he is having some more shortness of breath today. He wishes to wait a day or two prior to scheduling his procedure. Will follow and reassess again on Thursday and if he is stable for the procedures, will be scheduled for Thursday. Thank you for this referral. MD TWILA Hernandez/DOMINICK /2:37 PM /4:57 PM
[2016-06-14] MEDS: ACETAMINOPHEN/HYDROcodone 325 MG/5 MG TAB PO PRN (17:26)
[2016-06-14] MEDS: ALBUTEROL SULFATE 90 MCG/ACT HFA 8 GM INHALER INH SCH (21:00)
[2016-06-14] MEDS: ZOLPIDEM TARTRATE 5 MG TAB PO PRN (21:24)
[2016-06-15] VITALS (28 sets, daily range): BP systolic 154–178; BP diastolic 79–93; PULSE 80–126; RESP 18–22; TEMP 97.5–97.9; O2SAT 92–97
[2016-06-15] MEDS: ACETAMINOPHEN/HYDROcodone 325 MG/5 MG TAB PO PRN ×4 (02:28→21:17)
[2016-06-15] MEDS: INSULIN ASPART SUPPLEMENTAL SCALE SQ SCH ×4 (06:17→21:34)
[2016-06-15 07:00] LABS: BASOPHIL % 0.2 % (0.0-2.0); HEMATOCRIT 29.3 % (39.0-51.0); LYMPH % 4.5 % (9.0-44.0); LYMPHOCYTE # 0.3 TH/MM3 (1.0-4.8); MEAN CELL VOLUME 87.8 FL (80.0-100.0); MEAN CORPUSCULAR HEMOGLOBIN 28.6 PG (27.0-34.0); MEAN CORPUSCULAR HGB CONC 32.5 % (32.0-36.0); MONO % 5.8 % (0.0-8.0); NEUT % 89.5 % (16.0-70.0); PLATELET COUNT 223 TH/MM3 (150-450); RED BLOOD COUNT 3.34 MIL/MM3 (4.50-5.90); WHITE BLOOD COUNT 6.7 TH/MM3 (4.0-11.0)
[2016-06-15 07:04] LABS: HEMO FLAGS AUTO DIFF
[2016-06-15 07:23] LABS: BICARBONATE 29.1 MEQ/L (21.0-32.0)
[2016-06-15] MEDS: VANCOMYCIN INJ 1,250 MG in SODIUM CHLOR 0.9% 250 ML INJ 250 ML IV SCH (08:00)
[2016-06-15] MEDS: FUROSEMIDE 20 MG/2 ML VIAL IV PUSH SCH (08:16)
[2016-06-15] MEDS: DILTIAZEM-CD 180 MG CAP ER PO SCH (08:17)
[2016-06-15] MEDS: LISINOPRIL 20 MG TAB PO SCH (08:17)
[2016-06-15] MEDS: PANTOPRAZOLE SOD 40 MG DELAYED RELEASE TAB PO SCH (08:17)
[2016-06-15] MEDS: ASPIRIN 81 MG CHEW TAB CHEW SCH (08:17)
[2016-06-15] MEDS: methylPREDNISolone SOD SUCC 40 MG/1 ML VIAL IV PUSH SCH (08:17)
[2016-06-15] MEDS: BUDESONIDE-FORMOTEROL 160/4.5 MCG INHALER INH SCH ×2 (08:26→21:19)
[2016-06-15] MEDS: INSULIN DETEMIR 100 UNITS/ML VIAL SQ SCH ×2 (08:26→21:18)
[2016-06-15] MEDS: ALBUTEROL SULFATE 90 MCG/ACT HFA 8 GM INHALER INH SCH ×4 (08:26→21:00)
[2016-06-15] MEDS: TIOTROPIUM BROMIDE 18 MCG INH INH SCH (08:26)
[2016-06-15 08:28] LABS: PLATELET ESTIMATE SMEAR NORMAL (NORMAL); PLATELET MORPHOLOGY NORMAL (NORMAL); SCAN/DIFF AUTO DIFF CONFIRMED
[2016-06-15 08:29] LABS: KERATOCYTES OCC (NORMAL); TARGET CELLS 1+ (NORMAL)
[2016-06-15] MEDS: POTASSIUM CHLORIDE 20 MEQ CONTROLLED RELEASE TAB PO SCH (08:29)
[2016-06-15] MEDS: predniSONE 20 MG TAB PO SCH (13:30)
--- NOTE | 2016-06-15 13:34 | HHI.PR ---
Subjective Remarks Follow-up COPD. Still complaining of shortness of breath but improving exercise tolerance ambulating in the hallway. States he had 4 BMs overnight last 2 episodes were loose around 7 in the morning since then no BM. Denies nausea and abdominal pain discussed with PT and RN Objective Vitals Vital Signs Date Time Temp Pulse Resp B/P Pulse Ox O2 Delivery O2 Flow Rate FiO2 06/15/16 13:00 94 06/15/16 12:00 104 06/15/16 11:00 103 06/15/16 11:00 97.8 106 20 178/89 97 06/15/16 10:25 18 06/15/16 10:22 97 Nasal Cannula 4.00 06/15/16 10:00 108 06/15/16 09:00 108 06/15/16 08:00 126 06/15/16 07:30 97.5 116 20 169/86 92 06/15/16 07:00 87 06/15/16 06:00 86 06/15/16 05:17 92 18 155/84 97 06/15/16 05:00 96 06/15/16 04:36 97.7 06/15/16 04:00 88 06/15/16 03:00 90 06/15/16 02:28 22 154/79 95 06/15/16 02:00 126 06/15/16 01:00 86 06/15/16 00:00 85 06/14/16 23:00 96 06/14/16 22:00 108 06/14/16 21:00 98 06/14/16 20:03 97.9 108 22 150/80 97 06/14/16 20:00 97 Nasal Cannula 4.00 06/14/16 20:00 112 06/14/16 19:53 94 Nasal Cannula 4.00 06/14/16 19:00 98 06/14/16 18:00 108 06/14/16 17:00 108 06/14/16 16:00 92 06/14/16 15:00 97.9 89 20 163/83 98 06/14/16 15:00 100 06/14/16 14:00 110 I/O 06/14/16 06/14/16 06/14/16 06/15/16 06/15/16 06/15/16 07:00 15:00 23:00 07:00 15:00 23:00 Intake Total 244 ml 730 ml 680 ml Output Total 400 ml 450 ml 200 ml Balance -156 ml 280 ml 480 ml Intake Oral 240 ml 480 ml 680 ml IV Total 4 ml 250 ml 0 ml Output Urine Total 400 ml 450 ml 200 ml # Voids 3 # Bowel Movements 1 3 Result Diagram: 06/15/1660606/15/16606 Objective Remarks GENERAL: This is a well-nourished, well-developed patient, in no apparent distress on nasal cannula. CARDIOVASCULAR: Regular rate and regular rhythm without murmurs, gallops, or rubs. RESPIRATORY: Decreased breath sounds with no expiratory wheezes GASTROINTESTINAL: Abdomen soft, non-tender, nondistended. Normal, active bowel sounds MUSCULOSKELETAL: edema , erythema and pain to the right upper extremity - bilateral pedal edema noted. NEURO: Alert & Oriented x4 to person, place, time, situation. Moves all ext x4 Procedures Incision and drainage of right hand abscess A/P Problem List: (1) SVT (supraventricular tachycardia) ICD Code: I47.1 Status: Acute (2) Severe sepsis ICD Code: A41.9 Status: Acute (3) COPD with acute exacerbation ICD Code: J44.1 Status: Acute (4) Sepsis ICD Code: A41.9 Status: Acute (5) Cellulitis of right upper extremity ICD Code: L03.113 Status: Acute (6) Abscess of hand, right ICD Code: L02.511 Status: Acute (7) Olecranon bursitis, right elbow ICD Code: M70.21 Status: Acute Assessment and Plan - severe sepsis due to cellulitis of the right upper extremity/ right olecranon bursitis- venous doppler of the upper extremities with no DVT-XR of the right elbow with possible olecranon bursitis- US of the right upper extremity with a complex mass overlying the right third finger- s/p I/D of the right nand mass/fluid collection. continue with vancomycin culture positive for MRSA, discontinue Levaquin- keep the right hand elevated- continue pain control- follow the cultures. blood cultures negative- ID/hand surgery and ortho following; recommended conservative treatment of olecranon bursitis. ID wants to continue IV vancomycin and will evaluate patient on Thursday -SVT- due to sepsis- - dc'ed IV cardizem and continue po cardizem- cardiology consult appreciated. -ischemic cardiomyopathy with mild levation of troponin- s/p stent placement 2001, follow-up angiogram 2 weeks ago no intervention needed per patient; continue aspirin and lisinopril elevated troponin likely due to tachycardia/ sepsis echo with EF 35% cardiology consult appreciated. -acute on chronic systolic CHF- continue IV diuretic and monitor. Repeat BMP in the morning -COPD exacerbation- improving but still with dyspnea on exertion start to taper down steroids-continue neb treatment- will monitor. of note the patient is on home oxygen 2 L currently on 4 L -diabetes with hypoglycemic episode ;with no further recurrence-upper glycemic secondary to steroids. Adjust Levemir accordingly.- accu-check with SSI. Patient counseled regarding compliance -anemia of chronic disease- s/p PRBC transfusion with improved H/H- will monitor stool occult blood positive 1. Continue PPI and consulted GI for endoscopy Thursday if improved lung status -DVT prophylaxis ; SCD's-no chemical prophylaxis for now due to anemia. -consulted PT/OT Discharge Planning Not stable for discharge Jamey Ny MD Jun 15, 2016 13:34
[2016-06-15] MEDS: guaiFENesin/CODEINE SYRUP 200 MG/20 MG/10 ML CUP PO PRN ×2 (16:24→21:27)
[2016-06-15] MEDS: ZOLPIDEM TARTRATE 5 MG TAB PO PRN (21:17)
[2016-06-16] VITALS (24 sets, daily range): BP systolic 128–157; BP diastolic 77–89; PULSE 76–110; RESP 18–20; TEMP 97.4–98.9; O2SAT 94–97
[2016-06-16] MEDS: ACETAMINOPHEN/HYDROcodone 325 MG/5 MG TAB PO PRN ×3 (03:46→22:30)
[2016-06-16] MEDS: INSULIN ASPART SUPPLEMENTAL SCALE SQ SCH ×4 (05:50→22:24)
[2016-06-16] MEDS ORDERED: PHARMACY ORDERED LAB XX ONE (07:45)
[2016-06-16] MEDS: ASPIRIN 81 MG CHEW TAB CHEW SCH (08:59)
[2016-06-16] MEDS: predniSONE 20 MG TAB PO SCH (08:59)
[2016-06-16] MEDS: INSULIN DETEMIR 100 UNITS/ML VIAL SQ SCH ×2 (08:59→22:24)
[2016-06-16] MEDS: PANTOPRAZOLE SOD 40 MG DELAYED RELEASE TAB PO SCH (08:59)
[2016-06-16] MEDS: DILTIAZEM-CD 180 MG CAP ER PO SCH (08:59)
[2016-06-16] MEDS: LISINOPRIL 20 MG TAB PO SCH (08:59)
[2016-06-16] MEDS: BUDESONIDE-FORMOTEROL 160/4.5 MCG INHALER INH SCH ×2 (09:00→22:25)
[2016-06-16] MEDS: POTASSIUM CHLORIDE 20 MEQ CONTROLLED RELEASE TAB PO SCH (09:00)
[2016-06-16] MEDS: VANCOMYCIN INJ 1,250 MG in SODIUM CHLOR 0.9% 250 ML INJ 250 ML IV SCH (09:00)
[2016-06-16] MEDS: ALBUTEROL SULFATE 90 MCG/ACT HFA 8 GM INHALER INH SCH ×3 (09:00→18:00)
[2016-06-16] MEDS: FUROSEMIDE 20 MG/2 ML VIAL IV PUSH SCH (09:00)
[2016-06-16] MEDS: TIOTROPIUM BROMIDE 18 MCG INH INH SCH (09:01)
--- NOTE | 2016-06-16 11:31 | HHI.PR ---
Subjective Remarks Follow-up COPD. States he is doing better on 4 L nasal cannula. He was to proceed with EGD because he had problems swallowing corn. He does not want colonoscopy he had it 2 years ago and was found to have polyps. He was also told he has abdominal aneurysm [facility] Denies abdominal pain Objective Vitals Vital Signs Date Time Temp Pulse Resp B/P Pulse Ox O2 Delivery O2 Flow Rate FiO2 06/16/16 11:15 84 06/16/16 10:09 83 06/16/16 09:28 98.0 84 20 148/84 96 06/16/16 09:26 84 06/16/16 08:40 94 Nasal Cannula 4.00 06/16/16 08:10 84 06/16/16 07:54 85 06/16/16 07:29 Nasal Cannula 4.00 06/16/16 06:04 77 06/16/16 05:00 80 06/16/16 04:00 83 06/16/16 04:00 Nasal Cannula 4.00 06/16/16 04:00 98.0 83 18 151/84 95 06/16/16 03:00 80 06/16/16 02:00 82 06/16/16 01:00 79 06/16/16 00:00 76 06/16/16 00:00 Nasal Cannula 4.00 06/16/16 00:00 98.3 76 18 157/89 96 06/15/16 23:00 80 06/15/16 22:00 82 06/15/16 21:00 86 06/15/16 20:00 89 06/15/16 20:00 97.9 89 20 164/93 95 06/15/16 20:00 Nasal Cannula 4.00 06/15/16 18:00 86 06/15/16 17:35 20 06/15/16 17:02 96 06/15/16 16:00 92 06/15/16 15:00 97.9 96 20 165/86 96 06/15/16 15:00 100 06/15/16 14:00 87 06/15/16 13:00 94 06/15/16 12:00 104 I/O 06/15/16 06/15/16 06/15/16 06/16/16 06/16/16 06/16/16 07:00 15:00 23:00 07:00 15:00 23:00 Intake Total 680 ml 850 ml 0 ml Output Total 200 ml 650 ml Balance 480 ml 200 ml 0 ml Intake Oral 680 ml 600 ml IV Total 0 ml 250 ml 0 ml Output Urine Total 200 ml 650 ml # Voids 3 # Bowel Movements 3 1 Result Diagram: 06/15/16 0607 06/15/16 0607 Imaging Last Impressions Chest X-Ray 06/11/16 0000 Signed Impressions: Service Date/Time: Saturday, June 11, 2016 10:32 - CONCLUSION: 1. Patchy bibasilar infiltrates consistent with atelectasis and/or pneumonia. Clinical. Correlation is recommended. Santiago Mccartney MD Upper Extremity Ultrasound 06/09/16 0000 Signed Impressions: Service Date/Time: Thursday, June 09, 2016 18:12 - CONCLUSION: 1. Complex circumscribed soft tissue mass measuring up to 2.4 x 1.6 x 0.8 cm overlying the third finger with adjacent complex fluid collection measuring 8 mm. Etiology unclear. Stalin Alexis MD Elbow X-Ray 06/05/16 0000 Signed Impressions: Service Date/Time: June 17:02 - CONCLUSION: Minimal arthritic findings. Prominent soft tissue swelling of the olecranon process indicating possible olecranon bursitis. Matt Sapp MD Objective Remarks GENERAL: This is a well-nourished, well-developed patient, in no apparent distress on nasal cannula. CARDIOVASCULAR: Regular rate and regular rhythm without murmurs, gallops, or rubs. RESPIRATORY: Decreased breath sounds with no expiratory wheezes GASTROINTESTINAL: Abdomen soft, non-tender, nondistended. Normal, active bowel sounds MUSCULOSKELETAL: Right hand with incised wound on the dorsal surface with no signs of infection- bilateral pedal edema noted. NEURO: Alert & Oriented x4 to person, place, time, situation. Moves all ext x4 Procedures Incision and drainage of right hand abscess A/P Problem List: (1) SVT (supraventricular tachycardia) ICD Code: I47.1 Status: Acute (2) Severe sepsis ICD Code: A41.9 Status: Acute (3) COPD with acute exacerbation ICD Code: J44.1 Status: Acute (4) Sepsis ICD Code: A41.9 Status: Acute (5) Cellulitis of right upper extremity ICD Code: L03.113 Status: Acute (6) Abscess of hand, right ICD Code: L02.511 Status: Acute (7) Olecranon bursitis, right elbow ICD Code: M70.21 Status: Acute Assessment and Plan - severe sepsis due to cellulitis of the right upper extremity/ right olecranon bursitis-stable venous doppler of the upper extremities with no DVT-XR of the right elbow with possible olecranon bursitis- US of the right upper extremity with a complex mass overlying the right third finger- s/p I/D of the right nand mass/fluid collection. continue with vancomycin culture positive for MRSA, discontinue Levaquin- keep the right hand elevated- continue pain control- follow the cultures. blood cultures negative- ID/hand surgery and ortho following; recommended conservative treatment of olecranon bursitis. ID wants to continue IV vancomycin and will reevaluate patient today and provide recommendations -SVT- due to sepsis- - dc'ed IV cardizem and continue po cardizem- cardiology consult appreciated. -ischemic cardiomyopathy with mild levation of troponin- s/p stent placement 2001, follow-up angiogram 2 weeks ago no intervention needed per patient; continue aspirin and lisinopril elevated troponin likely due to tachycardia/ sepsis echo with EF 35% cardiology consult appreciated. -acute on chronic systolic CHF- continue IV diuretic and monitor electrolytes -COPD exacerbation- improving taper down steroids-continue neb treatment- will monitor. of note the patient is on home oxygen 2 L currently on 4 L -diabetes with hypoglycemic episode ;with no further recurrence-upper glycemic secondary to steroids. Adjust Levemir accordingly.- accu-check with SSI. Patient counseled regarding compliance -anemia of chronic disease- s/p PRBC transfusion with improved H/H- will monitor stool occult blood positive 1. Continue PPI and consulted GI for endoscopy Thursday if improved lung status -DVT prophylaxis ; SCD's-no chemical prophylaxis for now due to anemia. -consulted PT/OT Discharge Planning Discharge to [facility] after EGD Jamey Ny MD Jun 16, 2016 11:31
[2016-06-16] MEDS ORDERED: NORC5TAB PO (12:02)
[2016-06-16] MEDS ORDERED: GUAI100S5 PO (12:02)
--- NOTE | 2016-06-16 12:02 | HHI.DCPOC ---
Discharge Care Plan Diagnosis: (1) Abscess of hand, right (2) COPD with acute exacerbation Your Health Problems Are: Difficulty with ADL Exercise Tolerance Goals to Promote Your Health * To prevent worsening of your condition and complications * To maintain your health at the optimal level Directions to Meet Your Goals Take your medications as prescribed Follow your dietary instruction Follow activity as directed Keep your appointments as scheduled Take your immunizations and boosters as scheduled If your symptoms worsen call your PCP, if no PCP go to Urgent Care Center or Emergency Room Smoking is Dangerous to Your Health. Avoid second hand smoke Call the 24-hour hour crisis hotline for domestic abuse at Jamey Ny MD Jun 16, 2016 12:02
[2016-06-16] MEDS: guaiFENesin/CODEINE SYRUP 200 MG/20 MG/10 ML CUP PO PRN ×2 (14:42→22:29)
--- NOTE | 2016-06-16 16:24 | HHI.GIFU ---
Subjective Remarks Sitting on edge of bed in mild respiratory distress with audible wheezing from a few feet away. States he is having more sob today and has not had a breathing treatment. Nurse notified to contact respiratory. No n/v. States he does not have any issues eating and does not cough while he eats, but when he lays down at night will cough up some of the food he had earlier- corn, beans. He was evaluated with EGD in the past, although he cannot tell me if he has an esophageal diverticulum. He is absolutely refusing the colonoscopy, although he would like to have the EGD done. (Joseline Polanco) Objective Vitals I&O Vital Signs Date Time Temp Pulse Resp B/P Pulse Ox O2 Delivery O2 Flow Rate FiO2 06/16/16 15:54 06/16/16 15:50 88 06/16/16 14:42 97.4 88 20 128/78 96 06/16/16 14:40 86 06/16/16 11:15 84 06/16/16 10:09 83 06/16/16 09:28 98.0 84 20 148/84 96 06/16/16 09:26 84 06/16/16 08:40 94 Nasal Cannula 4.00 06/16/16 08:10 84 06/16/16 07:54 85 06/16/16 07:29 Nasal Cannula 4.00 06/16/16 06:04 77 06/16/16 05:00 80 06/16/16 04:00 83 06/16/16 04:00 Nasal Cannula 4.00 06/16/16 04:00 98.0 83 18 151/84 95 06/16/16 03:00 80 06/16/16 02:00 82 06/16/16 01:00 79 06/16/16 00:00 76 06/16/16 00:00 Nasal Cannula 4.00 06/16/16 00:00 98.3 76 18 157/89 96 06/15/16 23:00 80 06/15/16 22:00 82 06/15/16 21:00 86 06/15/16 20:00 89 06/15/16 20:00 97.9 89 20 164/93 95 06/15/16 20:00 Nasal Cannula 4.00 06/15/16 18:00 86 06/15/16 17:35 20 06/15/16 17:02 96 I/O 06/15/16 06/15/16 06/15/16 06/16/16 06/16/16 06/16/16 07:00 15:00 23:00 07:00 15:00 23:00 Intake Total 680 ml 850 ml 0 ml Output Total 200 ml 650 ml Balance 480 ml 200 ml 0 ml Intake Oral 680 ml 600 ml IV Total 0 ml 250 ml 0 ml Output Urine Total 200 ml 650 ml # Voids 3 # Bowel Movements 3 1 Laboratory Date/Time Procedure Status Source Growth 06/13/16 14:03 Stool Occult Blood ([facility]) - Final Complete Stool Stool HEMOCCULT POSITIVE Imaging Last Impressions Chest X-Ray 06/11/16 0000 Signed Impressions: Service Date/Time: Saturday, June 11, 2016 10:32 - CONCLUSION: 1. Patchy bibasilar infiltrates consistent with atelectasis and/or pneumonia. Clinical. Correlation is recommended. Santiago Mccartney MD Upper Extremity Ultrasound 06/09/16 0000 Signed Impressions: Service Date/Time: Thursday, June 09, 2016 18:12 - CONCLUSION: 1. Complex circumscribed soft tissue mass measuring up to 2.4 x 1.6 x 0.8 cm overlying the third finger with adjacent complex fluid collection measuring 8 mm. Etiology unclear. Stalin Alexis MD Elbow X-Ray 06/05/16 0000 Signed Impressions: Service Date/Time: June 17:02 - CONCLUSION: Minimal arthritic findings. Prominent soft tissue swelling of the olecranon process indicating possible olecranon bursitis. Matt Sapp MD Physical Exam HEENT: Normocephalic; atraumatic; no jaundice. CHEST: Resp even/unlabored, mildly labored, audible wheezing from a few feet away. CARDIAC: RRR ABDOMEN: Soft, nondistended, nontender; no hepatosplenomegaly; bowel sounds are present in all four quadrants. EXTREMITIES: No clubbing, cyanosis, or edema. SKIN: Multiple ecchymotic areas LOGISTICS SUPERVISOR: No focal deficits; alert and oriented times three. (Joseline Polanco) Assessment and Plan Plan ASSESSMENT: - Anemia, Hemoccult (+) Stools. 9.5/29.3. Pt is absolutely refusing colonoscopy, but would like to have the EGD done. However, he is currently having mild respiratory distress and audible wheezing. Will have respiratory give breathing treatment and will make NPO after MN for possible EGD- depending on respiratory status. - Reflux, coughing up food particles. States he has no issues swallowing but when he lays down he will later cough up food particles such as corn or beans. He has had EGD with dilatations in the past but cannot tell me if he has an esophageal diverticulum. - COPD/Patchy bibasilar infiltrates on cxr. Nebs. Abx. - Sepsis due to cellulitis of the rue, right olecranon bursitis. Vancomycin PLAN: - Possible EGD +/- Dilatation in am, depending on respiratory status - Obtain consents - PPI - Monitor hh - Transfuse as necessary - Supportive care - Further recommendations to follow based on results of above - Pt seen and examined by Dr. Chiu and myself and this note is written on her behalf (Joseline Polanco) Physician Comments seen, examined agree with above we will reevaluate in am (Orquidea Chiu MD) Joseline Polanco Jun 16, 2016 16:24 Orquidea Chiu MD Jun 16, 2016 18:12
--- NOTE | 2016-06-16 19:38 | HHI.IDPN ---
Subjective Subjective Remarks is a 76 y/o CM with history of CAD, diabetes who [facility]. Patient reports swelling all over his body. He reports erythema and swelling since last 4 days prior to admission associated with tenderness in UE. Tenderness more pronounced over knuckles where he has areas that are beginning to look fluctuant. He reports he was in a rehab facility and may be received antibiotics there. He was found to have SVT at the time of presentation to ER for which he received Adenosine and Cardizem and then placed on cardizem drip. Cardiology saw the patient. Patient was noted to have signs of sepsis (elevated WBC 27,000 along with tachycardia, source: cellulitis UE). Patient had blood cultures on admission which are negative. ID is consulted for evaluation and Mment of Sepsis and bilateral UE cellulitis. Overnight events reviewed. Cough with increased expectoration. Short of breath, procedure postponed per patient. No diarrhea No rash No fevers. Antibiotics Vanco IV Lines Line sites with no e/o bleed. 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 Vital Signs Date Time Temp Pulse Resp B/P Pulse Ox O2 Delivery O2 Flow Rate FiO2 06/16/16 18:09 86 06/16/16 17:31 82 06/16/16 16:31 84 06/16/16 15:54 06/16/16 15:50 88 06/16/16 14:42 97.4 88 20 128/78 96 06/16/16 14:40 86 06/16/16 11:15 84 06/16/16 10:09 83 06/16/16 09:28 98.0 84 20 148/84 96 06/16/16 09:26 84 06/16/16 08:40 94 Nasal Cannula 4.00 06/16/16 08:10 84 06/16/16 07:54 85 06/16/16 07:29 Nasal Cannula 4.00 06/16/16 06:04 77 06/16/16 05:00 80 06/16/16 04:00 83 06/16/16 04:00 Nasal Cannula 4.00 06/16/16 04:00 98.0 83 18 151/84 95 06/16/16 03:00 80 06/16/16 02:00 82 06/16/16 01:00 79 06/16/16 00:00 76 06/16/16 00:00 Nasal Cannula 4.00 06/16/16 00:00 98.3 76 18 157/89 96 06/15/16 23:00 80 06/15/16 22:00 82 06/15/16 21:00 86 06/15/16 20:00 89 06/15/16 20:00 97.9 89 20 164/93 95 06/15/16 20:00 Nasal Cannula 4.00 06/15/16 06/15/16 06/16/16 15:00 23:00 07:00 Intake Total 850 ml Output Total 650 ml Balance 200 ml Intake Oral 600 ml IV Total 250 ml Output Urine Total 650 ml # Bowel Movements 1 . Laboratory Tests Test 06/15/16 06:07 White Blood Count 6.7 TH/MM3 Red Blood Count 3.34 MIL/MM3 Hemoglobin 9.5 GM/DL Hematocrit 29.3 % Mean Corpuscular Volume 87.8 FL Mean Corpuscular Hemoglobin 28.6 PG Mean Corpuscular Hemoglobin 32.5 % Concent Red Cell Distribution Width 24.0 % Platelet Count 223 TH/MM3 Mean Platelet Volume 8.0 FL Neutrophils (%) (Auto) 89.5 % Lymphocytes (%) (Auto) 4.5 % Monocytes (%) (Auto) 5.8 % Eosinophils (%) (Auto) 0.0 % Basophils (%) (Auto) 0.2 % Neutrophils # (Auto) 6.0 TH/MM3 Lymphocytes # (Auto) 0.3 TH/MM3 Monocytes # (Auto) 0.4 TH/MM3 Eosinophils # (Auto) 0.0 TH/MM3 Basophils # (Auto) 0.0 TH/MM3 CBC Comment AUTO DIFF Differential Comment AUTO DIFF CONFIRMED Platelet Estimate NORMAL Platelet Morphology Comment NORMAL Target Cells 1+ Keratocytes OCC Laboratory Tests Test 06/15/16 06:07 Sodium Level 145 MEQ/L Potassium Level 4.0 MEQ/L Chloride Level 109 MEQ/L Carbon Dioxide Level 29.1 MEQ/L Anion Gap 7 MEQ/L Blood Urea Nitrogen 39 MG/DL Creatinine 0.87 MG/DL Estimat Glomerular Filtration 85 ML/MIN Rate Random Glucose 150 MG/DL Calcium Level 8.0 MG/DL Magnesium Level 2.0 MG/DL Imaging Last Impressions Chest X-Ray 06/05/16 1223 Signed Impressions: Service Date/Time: June 12:50 - CONCLUSION: Hyperinflation which can be seen with COPD. No acute cardiopulmonary disease and no evidence for an infiltrate. Mani Lopez MD Upper Extremity Ultrasound 06/05/16 0000 Signed Impressions: Service Date/Time: June 16:01 - CONCLUSION: No evidence of upper extremity DVT on the right or left. Matt Sapp MD Elbow X-Ray 06/05/16 0000 Signed Impressions: Service Date/Time: June 17:02 - CONCLUSION: Minimal arthritic findings. Prominent soft tissue swelling of the olecranon process indicating possible olecranon bursitis. Matt Sapp MD Physical Exam GENERAL: Elderly chronically ill appearing male patient, in no apparent distress. SKIN: No rashes, ecchymoses or lesions. Cool and dry. HEAD: Atraumatic. Normocephalic. No temporal or scalp tenderness. EYES: Pupils equal round and reactive. Extraocular motions intact. No scleral icterus. No injection or drainage. ENT: Nose without bleeding, purulent drainage or septal hematoma. Throat without erythema, tonsillar hypertrophy or exudate. Uvula midline. Airway patent. NECK: Trachea midline. Supple, nontender, no meningeal signs. CARDIOVASCULAR: Hs audible. RESPIRATORY: Clear to auscultation. Breath sounds equal bilaterally. No wheezes , rales, or rhonchi. GASTROINTESTINAL: Abdomen soft, non-tender, nondistended. No hepato-splenomegaly , or palpable masses. No guarding. MUSCULOSKELETAL: Bilateral UE edema associated with erythema. On the knuckles of both hands an area of tenderness,fluctuance noted. right elbow with fluctuance noted, erythema and warmth noted. NEUROLOGICAL: Awake and alert. Grossly non focal Psych: cooperative IV line sites with no e/o infection. Assessment & Plan Remarks Sepsis present on admission Bilateral UE cellulitis ? abscess on dorsal aspect hand. Persistent Pneumonia: HCAP vs ADRIÁN etc given long standing COPD history COPD Oxygen dependent. Right olecranon bursitis. Abscess of right dorsum of hand. CAD DM HTN Recs: Continue Vanco IV (target 10-15) Start Zosyn IV (possible HCAP) Start Levaquin (for atypical PNA) Sputum culture today CXR today. Pulmonary consult: alfie Gonzalez will see patient in am. Follow clinically. Roya Velez MD Jun 16, 2016 19:38
--- NOTE | 2016-06-16 20:28 | RADRPT ---
EXAM DATE/TIME: 06/16/2016 19:45 [facility] COMPARISON: CHEST SINGLE AP, June 11, 2016, 10:32. INDICATIONS : Shortness of breath. MEDICAL HISTORY : Hypertension. SURGICAL HISTORY : Tonsillectomy. Coronary artery stents. ENCOUNTER: Subsequent ACUITY: 1 week PAIN SCORE: Non-responsive. LOCATION: Bilateral chest FINDINGS: The heart size is normal. The lungs appear hyperinflated. There is increased density at the left base with some silhouetting of the left hemidiaphragm. The right lung is grossly clear. The right costop hrenic angle is clear. There does appear to be a chronic deformity at the proximal left humerus pres umably from prior fracturing. This is incompletely seen on this chest x-ray. CONCLUSION: Left lower lobe consolidation or atelectasis. Some degree of effusion at the left bas e cannot be excluded. Christoph Sandoval MD on June 16, 2016 at 20:24 Board Certified Radiologist. This report was verified electronically.
[2016-06-16] MEDS: PIPERACIL-TAZO 4.5 GM PREMIX 100 ML IV SCH (22:23)
[2016-06-16] MEDS: LEVOFLOXACIN 500 MG TAB PO SCH (22:23)
--- NOTE | 2016-06-16 22:23 | RADRPT ---
EXAM DATE/TIME: 06/16/2016 21:53 [facility] COMPARISON: No previous studies available for comparison. INDICATIONS : Shortness of breath and abnormal chest x-ray. RADIATION DOSE: 5.22 CTDIvol (mGy) MEDICAL HISTORY : Hypertension. SURGICAL HISTORY : None. ENCOUNTER: Subsequent ACUITY: 1 day PAIN SCALE: 3/10 LOCATION: Chest TECHNIQUE: Volumetric scanning of the chest was performed. Using automated exposure control and adjustment of the mA and/or kV according to patient size, radiation dose was kept as low as reasonab ly achievable to obtain optimal diagnostic quality images. FINDINGS: There is a 1.4 cm focal area of irregular density in the superior medial left upper lob e. This has a small area of cavitary change seen. There is also a 5 mm smooth nodule in the left upp er lobe. There is some minimal peripheral increased density seen at the lateral left upper lobe which most closely resembles post inflammatory change. The patient also has a 1.3 cm irregular mass seen in the lateral left lower lobe. There is s 5 mm nodule seen in the posterior medial left lower lobe. There is some prominence of the interstitium seen throughout. There is some linear suspected scarr ing or subpleural atelectasis along the lateral right midlung. There is a minimal left pleural effus ion. Significant areas of adenopathy are not appreciated. Coronary artery calcifications are present. Va scular calcifications are seen in the aorta and throughout the arterial system. There are some small calcifications in the central aspect of the right kidney which could be vascular or tiny nonobstruct ing stones. There is degenerative change in the thoracic spine. 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 There is bony callus seen in this region. There appears to be ch ronic healed fracture deformities at the anterior sixth through ninth left ribs. CONCLUSION: 1. Two 1.3 cm irregular masses in the left lung. The one in the left upper lobe is cavitary. These c ould be further evaluated with a PET/FDG study to determine if they are metabolically active or not. Neoplastic change cannot be excluded. 2. Small 5 mm nodules seen in the left upper lobe and left lower lobe. These are nonspecific. 3. Minimal left pleural effusion. 4. Atherosclerotic change at the coronary arteries and aorta. Christoph Sandoval MD on June 16, 2016 at 22:09 Board Certified Radiologist. This report was verified electronically.
[2016-06-16] MEDS: ZOLPIDEM TARTRATE 5 MG TAB PO PRN (22:30)
[2016-06-17] VITALS (25 sets, daily range): BP systolic 147–165; BP diastolic 76–94; PULSE 51–114; RESP 18; TEMP 97.8–98.6; O2SAT 94–98
[2016-06-17] MEDS: PIPERACIL-TAZO 4.5 GM PREMIX 100 ML IV SCH ×3 (04:24→22:02)
[2016-06-17] MEDS: INSULIN ASPART SUPPLEMENTAL SCALE SQ SCH ×4 (04:25→22:03)
[2016-06-17] MEDS ORDERED: PHARMACY ORDERED LAB XX ONE (07:45)
[2016-06-17] MEDS: RESP: ALBUTEROL 2.5 MG/IPRATROPIUM 0.5 MG NEB (SCH) NEB ×4 (07:58→19:26)
[2016-06-17] MEDS: predniSONE 20 MG TAB PO SCH (08:39)
[2016-06-17] MEDS: LISINOPRIL 20 MG TAB PO SCH (08:39)
[2016-06-17] MEDS: DILTIAZEM-CD 180 MG CAP ER PO SCH (08:40)
[2016-06-17] MEDS: POTASSIUM CHLORIDE 20 MEQ CONTROLLED RELEASE TAB PO SCH (08:40)
[2016-06-17] MEDS: ACETAMINOPHEN/HYDROcodone 325 MG/5 MG TAB PO PRN ×2 (08:40→16:40)
[2016-06-17] MEDS: ASPIRIN 81 MG CHEW TAB CHEW SCH (08:40)
[2016-06-17] MEDS: FUROSEMIDE 20 MG/2 ML VIAL IV PUSH SCH (08:40)
[2016-06-17] MEDS: INSULIN DETEMIR 100 UNITS/ML VIAL SQ SCH ×2 (08:41→21:00)
[2016-06-17] MEDS: PANTOPRAZOLE SOD 40 MG DELAYED RELEASE TAB PO SCH (08:42)
[2016-06-17] MEDS: VANCOMYCIN INJ 1,250 MG in SODIUM CHLOR 0.9% 250 ML INJ 250 ML IV SCH (08:45)
[2016-06-17] MEDS: BUDESONIDE-FORMOTEROL 160/4.5 MCG INHALER INH SCH ×2 (08:53→21:00)
--- NOTE | 2016-06-17 09:26 | MB ---
cc: FUENTES MENDENHALL DATE OF CONSULTATION 06/05/2016 DATE OF 1940 CHIEF COMPLAINT Shortness of breath and leg edema. HISTORY OF PRESENT ILLNESS This is a 76-year-old white male with a history of chronic bronchitis and coronary artery disease who was complaining of swelling over his arms and legs and has had some shortness of breath with activity. Denies any chest pain, but had mild hemoptysis and denied fevers, chills or night sweats. OTHER PAST HISTORY Includes a history of: 1. Arthritis of the shoulder and back 2. Nasal allergies ALLERGIES He does have allergies to carrots. FAMILY HISTORY Noncontributory from yesterday having trouble with the documents to be reviewed. REVIEW OF SYSTEMS The patient does complain of wheezing, shortness of breath. PHYSICAL EXAM VITAL SIGNS: Blood pressure 130/60, pulse is 90, respirations 22, temperature is 98.2. HEENT: Head normocephalic. Pupils reactive. Tongue is moist. Nasal mucosae edematous. Throat is mildly injected. NECK: Supple. CHEST: Distant breath sounds with wheezes bilaterally, prolonged expirations. HEART: The heart sounds are irregular S1 and S2. ABDOMEN: Soft and benign. No organomegaly. Bowel sounds are active. EXTREMITIES: No edema and no calf tenderness. Reflexes are 1+ with no gross motor deficits. NEUROLOGIC: Cranial nerves grossly intact. RECTAL: Exam is deferred. SKIN: No lesions. IMPRESSION Nasal cannula at two liters to keep to be greater than 8000. Nothing can be . He had to be back and a follow up arranged. Follow up tap to be arranged in approximately three weeks. Thank you for this consultation. MD SD Odonnell/CAMERON /12:17 AM /9:14 AM
--- NOTE | 2016-06-17 09:36 | MB ---
cc: FUENTES PINEDO DATE OF CONSULTATION: 06/16/2016 REASON FOR CONSULTATION COPD and asthma. HISTORY OF PRESENT ILLNESS This is a 76-year-old man with a history of COPD who has been on oxygen since his admission here and he is set at 2 liters nasal cannula. The patient has been treated by [facility] physicians and he has had occasional cough and wheezing and chest congestion but no fevers, chills, night sweats or reflux. He was brought to the emergency room due to high heart rate and chest congestion and upon admission a chest x-ray showed evidence of basilar lung infiltrates. He was admitted for further evaluation. PAST HISTORY 1. History for COPD. 2. He has had severe sepsis. 3. Coronary artery disease. 4. CHF. REVIEW OF SYSTEMS The patient has had problems finding an extra space. He has had blurred vision and diplopia as well as hay fever and asthma. He has had palpitations and denies abdominal pain, black stools or diarrhea. He has had urinary frequency and he also has had joint pains of the upper extremity and denied any seizures or tremors. Denies skin rash or itching. PHYSICAL EXAMINATION General: This is an elderly white male in no acute distress. Vital Signs: Blood pressure is 136/70, pulse is 85 and respirations are 20, temperature 97. HEENT: Head normocephalic. Pupils reactive. Tongue moist. Nasal mucosa injected. Throat is clear. Neck: Supple. No bruits or thyroid enlargement. Chest: Distant breath sounds with wheezes bilaterally, prolonged expirations and occasional basilar crackles. Heart: The heart sounds are irregular, S1 and S2. No murmur. No S3. Abdomen: Soft, benign. No masses. Extremities: No edema. Neurologic: Normal reflexes. No gross motor deficits. Cranial nerves are grossly intact. Rectal: Exam is deferred. IMPRESSION 1. Cellulitis of the right upper extremity. 2. Sepsis and possible pneumonia right lower lobe. 3. Diabetes mellitus. 4. Chronic kidney disease. 5. COPD with emphysema. 6. Bibasilar atelectasis with pleural effusion. RECOMMENDATIONS He has been advised to use sodium bicarbonate once daily. He has been placed on antibiotic coverage for sepsis and cellulitis of the upper extremity which we will continue. Pain control with [place] to be used on a p.r.n. A CT scan of the chest without contrast to evaluate the upper lobes and for lung nodules and the patient also was advised O2 at 3 liters and continue home oxygen at 3 liters nasal cannula, diuretic therapy is ordered to be maintained. A pulmonary function study will be ordered at the bedside with bronchodilator study and the patient will need followup as an outpatient for his chronic lung disease. I will review the case again after the CAT scan is completed and I will follow the case with you. Dr. Ny, thank you for this consultation. Fuentes Pinedo MD JVD/SSB /12:23 AM /9:32 AM
--- NOTE | 2016-06-17 11:16 | HHI.PR ---
Subjective Remarks Follow-up pneumonia. Improving shortness of breath. Discussed with RN and pulmonology Objective Vitals Vital Signs Date Time Temp Pulse Resp B/P Pulse Ox O2 Delivery O2 Flow Rate FiO2 06/17/16 08:54 97 4.00 06/17/16 08:54 80 18 165/94 97 06/17/16 06:00 83 06/17/16 05:00 78 06/17/16 04:00 84 06/17/16 03:00 114 06/17/16 02:00 78 06/17/16 01:00 84 06/17/16 00:00 103 06/17/16 00:00 97.8 104 18 147/81 97 06/16/16 23:00 110 06/16/16 22:00 90 06/16/16 21:00 84 06/16/16 20:00 91 06/16/16 20:00 98.9 84 18 154/77 97 06/16/16 20:00 Nasal Cannula 4.00 Humidified 06/16/16 18:09 86 06/16/16 17:31 82 06/16/16 16:31 84 06/16/16 15:54 06/16/16 15:50 88 06/16/16 14:42 97.4 88 20 128/78 96 06/16/16 14:40 86 I/O 06/16/16 06/16/16 06/16/16 06/17/16 06/17/16 06/17/16 07:00 15:00 23:00 07:00 15:00 23:00 Intake Total 0 ml 720 ml 480 ml Output Total 800 ml 250 ml Balance 0 ml -80 ml 230 ml Intake Oral 720 ml 480 ml IV Total 0 ml Output Urine Total 800 ml 250 ml Result Diagram: 06/15/16 0607 06/17/16 0518 Imaging Last Impressions Chest CT 06/16/162028 Signed Impressions: Service Date/Time: Thursday, June 16, 2016 21:53 - CONCLUSION: 1. Two 1.3 cm irregular masses in the left lung. The one in the left upper lobe is cavitary. These could be further evaluated with a PET/FDG study to determine if they are metabolically active or not. Neoplastic change cannot be excluded. 2. Small 5 mm nodules seen in the left upper lobe and left lower lobe. These are nonspecific. 3. Minimal left pleural effusion. 4. Atherosclerotic change at the coronary arteries and aorta. Christoph Sandoval MD Chest X-Ray 06/16/16 0000 Signed Impressions: Service Date/Time: Thursday, June 16, 2016 19:45 - CONCLUSION: Left lower lobe consolidation or atelectasis. Some degree of effusion at the left base cannot be excluded. Christoph Sandoval MD Upper Extremity Ultrasound 06/09/16 Signed Impressions: Service Date/Time: Thursday, June 09, 2016 18:12 - CONCLUSION: 1. Complex circumscribed soft tissue mass measuring up to 2.4 x 1.6 x 0.8 cm overlying the third finger with adjacent complex fluid collection measuring 8 mm. Etiology unclear. Stalin Alexis MD Elbow X-Ray 06/05/16 Signed Impressions: Service Date/Time: June 17:02 - CONCLUSION: Minimal arthritic findings. Prominent soft tissue swelling of the olecranon process indicating possible olecranon bursitis. Matt Sapp MD Objective Remarks GENERAL: This is a well-nourished, well-developed patient, in no apparent distress on nasal cannula. CARDIOVASCULAR: Regular rate and regular rhythm without murmurs, gallops, or rubs. RESPIRATORY: Decreased breath sounds with no expiratory wheezes GASTROINTESTINAL: Abdomen soft, non-tender, nondistended. Normal, active bowel sounds MUSCULOSKELETAL: Right hand with incised wound on the dorsal surface with no signs of infection- bilateral pedal edema noted. NEURO: Alert & Oriented x4 to person, place, time, situation. Moves all ext x4 Procedures Incision and drainage of right hand abscess A/P Problem List: (1) SVT (supraventricular tachycardia) ICD Code: I47.1 Status: Acute (2) Severe sepsis ICD Code: A41.9 Status: Acute (3) COPD with acute exacerbation ICD Code: J44.1 Status: Acute (4) Sepsis ICD Code: A41.9 Status: Acute (5) Cellulitis of right upper extremity ICD Code: L03.113 Status: Acute (6) Abscess of hand, right ICD Code: L02.511 Status: Acute (7) Olecranon bursitis, right elbow ICD Code: M70.21 Status: Acute Assessment and Plan - severe sepsis due to cellulitis of the right upper extremity/ right olecranon bursitis-stable venous doppler of the upper extremities with no DVT-XR of the right elbow with possible olecranon bursitis- US of the right upper extremity with a complex mass overlying the right third finger- s/p I/D of the right nand mass/fluid collection. continue with vancomycin culture positive for MRSA, discontinue Levaquin- keep the right hand elevated- continue pain control- follow the cultures. blood cultures negative- ID/hand surgery and ortho following; recommended conservative treatment of olecranon bursitis. ID wants to continue IV vancomycin -HAP. Continue Zosyn and Levaquin. Follow-up sputum culture, urinary Legionella and pneumococcal antigen -Pulmonary nodules. Discussed with pulmonary, for bronchoscopy -SVT- due to sepsis- - dc'ed IV cardizem and continue po cardizem- cardiology consult appreciated. -ischemic cardiomyopathy with mild levation of troponin- s/p stent placement 2001, follow-up angiogram 2 weeks ago no intervention needed per patient; continue aspirin and lisinopril elevated troponin likely due to tachycardia/ sepsis echo with EF 35% cardiology consult appreciated. -acute on chronic systolic CHF- continue IV diuretic and monitor electrolytes -COPD exacerbation- improving taper down steroids-continue neb treatment- will monitor. of note the patient is on home oxygen 2 L currently on 4 L -diabetes with hypoglycemic episode ;with no further recurrence-upper glycemic secondary to steroids. Adjust Levemir accordingly.- accu-check with SSI. Patient counseled regarding compliance -anemia of chronic disease- s/p PRBC transfusion with improved H/H- will monitor stool occult blood positive 1. Continue PPI and consulted GI for endoscopy when lung status improves -DVT prophylaxis ; SCD's-no chemical prophylaxis for now due to anemia. -consulted PT/OT Discharge Planning Discharge to [facility] when improved Jamey Ny MD Jun 17, 2016 11:16
--- NOTE | 2016-06-17 11:38 | MB ---
cc: FUENTES MENDENHALL DATE OF CONSULTATION 06/16/2016 REASON FOR CONSULTATION Respiratory insufficiency with COPD. PRESENT ILLNESS This 76-year-old white male was initially admitted for cellulitis of the arms with leg and arm edema. Patient has had some redness of the skin of the arm for four to five days and also had some shortness of breath associated with orthopnea. Upon admission, the patient was noted to have a rapid heartbeat and was in SVT requiring a Cardizem drip. Subsequently, he had to be diuresed due to significant arm and leg edema. He was placed on antibiotic coverage and treated for cellulitis and severe sepsis. The patient improved significantly. He needed to be on oxygen at 2-3 liters and his arm edema has significantly resolved, however he is having still significant leg edema, but denies any chest pains. He does have an occasional cough. He has wheezing and he is orthopneic. PAST MEDICAL HISTORY The past history has included: 1. A history for COPD with chronic bronchitis. 2. History for hypertension. 3. Diabetes mellitus type 2 4. History of carcinoma of the bladder. 5. Coronary artery disease. 6. He has had coronary artery stenting done. MEDICATIONS List included: 1. Cardizem 2. Levemir insulin 3. Lisinopril 4. [place] for pain 5. Nebulized albuterol q.i.d. 6. Clonidine ALLERGIES SULFA DRUGS HABITS The patient smoked one-pack per day for over 35 years and quit alcohol use in the past, but not recently. FAMILY HISTORY Noncontributory SYSTEM REVIEW The patient has gained weight. He has dizziness, postnasal drip. He has arm cellulitis as well as leg edema. He has urinary frequency and hematuria. No fevers or chills. Denies anxiety or depression. PHYSICAL EXAMINATION This is an elderly averagely built white male who is pale and mildly dyspneic at rest. He is on oxygen at two liters. EXTREMITIES: There is no clubbing. There is 2+ leg edema, erythema of the elbows and mild arm edema. VITAL SIGNS: Blood pressure 130/70, pulse 105, respirations 22, temperature 98.5. HEENT: Head normocephalic. Pupils are reactive and equal. Tongue was moist. Throat was clear. Ears, no inflammation. NECK: Supple. No venous distension. No thyromegaly or lymphadenopathy. CHEST: Decreased breath sounds at the bases with occasional wheezes throughout both lung saab. Prolonged expirations. There are a few bibasilar crackles. HEART: The heart sounds are regular S1-S2 with no murmur. No S3. ABDOMEN: The abdomen is soft, nontender. No organomegaly. The bowel sounds are active. EXTREMITIES: Edema 2+ with diminished pulses and joint deformities of the extremities. SKIN: Tightly stretched over the extremities. NEUROLOGIC: He is alert and oriented. Moves all extremities with 1+ reflexes. There are no deficits. IMPRESSION 1. Cellulitis of the right upper extremity resolving. 2. COPD with emphysema and chronic bronchitis 3. Coronary artery disease with stenting 4. Diabetes mellitus 5. History of hypertension. PLAN The patient has been placed on O2 at two liters. We will get a CT scan of the chest to evaluate the upper lobes and to look for any lung nodules. Antibiotic therapy is being given by infectious disease service which we will continue diuretic therapy and the patient will also be placed on Symbicort 160 x 4.5 two puffs twice a day. Physiotherapy to be started for ambulation and after chest CT scan is back, we can decide on further course of treatment. Thank you for this consultation. Thank you Dr. Ny and Dr. Velez for this consultation. MD SD Odonnell/CAMERON /11:14 AM /11:27 AM CATRACHITO
--- NOTE | 2016-06-17 12:04 | HHI.PR ---
Subjective Remarks Feels better. Has some leg edema still. Good output with lasix. CT Chest shows some areas of Scarring with Multiple Nodules in the Left lung. Objective Vital Signs Date Time Temp Pulse Resp B/P Pulse Ox O2 Delivery O2 Flow Rate FiO2 06/17/16 11:40 98 Nasal Cannula 2.00 06/17/16 08:54 97 4.00 06/17/16 08:54 80 18 165/94 97 06/17/16 06:00 83 06/17/16 05:00 78 06/17/16 04:00 84 06/17/16 03:00 114 06/17/16 02:00 78 06/17/16 01:00 84 06/17/16 00:00 103 06/17/16 00:00 97.8 104 18 147/81 97 06/16/16 23:00 110 06/16/16 22:00 90 06/16/16 21:00 84 06/16/16 20:00 91 06/16/16 20:00 98.9 84 18 154/77 97 06/16/16 20:00 Nasal Cannula 4.00 Humidified 06/16/16 18:09 86 06/16/16 17:31 82 06/16/16 16:31 84 06/16/16 15:54 06/16/16 15:50 88 06/16/16 14:42 97.4 88 20 128/78 96 06/16/16 14:40 86 I/O 06/16/16 06/16/16 06/16/16 06/17/16 06/17/16 06/17/16 07:00 15:00 23:00 07:00 15:00 23:00 Intake Total 0 ml 720 ml 480 ml Output Total 800 ml 250 ml Balance 0 ml -80 ml 230 ml Intake Oral 720 ml 480 ml IV Total 0 ml Output Urine Total 800 ml 250 ml Result Diagram: 06/15/16 0607 06/17/16 0518 Objective Remarks This is an elderly averagely built white male who is pale and mildly dyspneic at rest. He is on oxygen at two liters. EXTREMITIES: There is no clubbing. There is 2+ leg edema, erythema of the elbows and mild arm edema. HEENT: Head normocephalic. Pupils are reactive and equal. Tongue was moist. Throat was clear. Ears, no inflammation. NECK: Supple. No venous distension. No thyromegaly or lymphadenopathy. CHEST: Decreased breath sounds at the bases with occasional wheezes throughout both lung saab. Prolonged expirations. There are a few bibasilar crackles. HEART: The heart sounds are regular S1-S2 with no murmur. No S3. ABDOMEN: The abdomen is soft, nontender. No organomegaly. The bowel sounds are active. EXTREMITIES: Edema 2+ with diminished pulses and joint deformities of the extremities. SKIN: Tightly stretched over the extremities. NEUROLOGIC: He is alert and oriented. Moves all extremities with 1+ reflexes. There are no deficits. Assessment and Plan Assessment and Plan IMPRESSION 1. Cellulitis of the right upper extremity resolving. 2. COPD with emphysema and chronic bronchitis 3. Coronary artery disease with stenting 4. Diabetes mellitus 5. History of hypertension. 6. Left Lung nodules Plan : 1. Cont antibiotics per ID. 2. Nebs qid , duoneb. 3. O2 at 2L. 4. Cont lasix 40 mg IV bid. 5. Will need bronchoscopy to evaluate lung infiltrates/ Will Schedule later this week. 6. Add Solumedrol 40 mg IV q8h. Liv Pinedo MD Jun 17, 2016 12:04
--- NOTE | 2016-06-17 12:44 | HHI.GIFU ---
Subjective Remarks Resting in bed. States his breathing has improved some since yesterday, but still on 4L with sob with minimal exertion. States he is usually on 2L via n/c at his baseline. No GI bleeding. Objective Vitals I&O Vital Signs Date Time Temp Pulse Resp B/P Pulse Ox O2 Delivery O2 Flow Rate FiO2 06/17/16 12:02 97.8 93 18 150/76 94 06/17/16 11:40 98 Nasal Cannula 2.00 06/17/16 08:54 97 4.00 06/17/16 08:54 80 18 165/94 97 06/17/16 06:00 83 06/17/16 05:00 78 06/17/16 04:00 84 06/17/16 03:00 114 06/17/16 02:00 78 06/17/16 01:00 84 06/17/16 00:00 103 06/17/16 00:00 97.8 104 18 147/81 97 06/16/16 23:00 110 06/16/16 22:00 90 06/16/16 21:00 84 06/16/16 20:00 91 06/16/16 20:00 98.9 84 18 154/77 97 06/16/16 20:00 Nasal Cannula 4.00 Humidified 06/16/16 18:09 86 06/16/16 17:31 82 06/16/16 16:31 84 06/16/16 15:54 06/16/16 15:50 88 06/16/16 14:42 97.4 88 20 128/78 96 06/16/16 14:40 86 I/O 06/16/16 06/16/16 06/16/16 06/17/16 06/17/16 06/17/16 07:00 15:00 23:00 07:00 15:00 23:00 Intake Total 0 ml 720 ml 480 ml Output Total 800 ml 250 ml Balance 0 ml -80 ml 230 ml Intake Oral 720 ml 480 ml IV Total 0 ml Output Urine Total 800 ml 250 ml Laboratory Laboratory Tests Test 06/17/16 05:18 Creatinine 0.94 Estimat Glomerular Filtration 78 Rate Date/Time Procedure Status Source Growth 06/13/16 14:03 Stool Occult Blood ([facility]WIN) - Final Complete Stool Stool HEMOCCULT POSITIVE Imaging Last Impressions Chest CT 06/16/162028 Signed Impressions: Service Date/Time: Thursday, June 16, 2016 21:53 - CONCLUSION: 1. Two 1.3 cm irregular masses in the left lung. The one in the left upper lobe is cavitary. These could be further evaluated with a PET/FDG study to determine if they are metabolically active or not. Neoplastic change cannot be excluded. 2. Small 5 mm nodules seen in the left upper lobe and left lower lobe. These are nonspecific. 3. Minimal left pleural effusion. 4. Atherosclerotic change at the coronary arteries and aorta. Christoph Sandoval MD Chest X-Ray 06/16/16 0000 Signed Impressions: Service Date/Time: Thursday, June 16, 2016 19:45 - CONCLUSION: Left lower lobe consolidation or atelectasis. Some degree of effusion at the left base cannot be excluded. Christoph Sandoval MD Upper Extremity Ultrasound 06/09/16 0000 Signed Impressions: Service Date/Time: Thursday, June 09, 2016 18:12 - CONCLUSION: 1. Complex circumscribed soft tissue mass measuring up to 2.4 x 1.6 x 0.8 cm overlying the third finger with adjacent complex fluid collection measuring 8 mm. Etiology unclear. Stalin Alexis MD Elbow X-Ray 06/05/16 0000 Signed Impressions: Service Date/Time: June 17:02 - CONCLUSION: Minimal arthritic findings. Prominent soft tissue swelling of the olecranon process indicating possible olecranon bursitis. Matt Sapp MD Physical Exam HEENT: Normocephalic; atraumatic; no jaundice. CHEST: Resp even, mildly labored, very diminished breath sounds, sob on exertion. O2 4L CARDIAC: RRR ABDOMEN: Soft, nondistended, nontender; no hepatosplenomegaly; bowel sounds are present in all four quadrants. EXTREMITIES: No clubbing, cyanosis, or edema. SKIN: Multiple ecchymotic areas BIOMETRIC TECHNICIAN: No focal deficits; alert and oriented times three. Assessment and Plan Plan ASSESSMENT: - Anemia, Hemoccult (+) Stools. 9.5/29.3. Pt is absolutely refusing colonoscopy, but would like to have the EGD done. His respiratory status is slightly improved from yesterday, but still on O2 4L via n/c (baseline 2), extremely diminished breath sounds, sob on minimal exertion. Will hold on EGD until respiratory status improves. - Reflux, coughing up food particles. States he has no issues swallowing but when he lays down he will later cough up food particles such as corn or beans. He has had EGD with dilatations in the past but cannot tell me if he has an esophageal diverticulum. - COPD/Patchy bibasilar infiltrates on cxr. CT thorax with 1. Two 1.3 cm irregular masses in the left lung. The one in the left upper lobe is cavitary. These could be further evaluated with a PET/FDG study to determine if they are metabolically active or not. Neoplastic change cannot be excluded. 2. Small 5 mm nodules seen in the left upper lobe and left lower lobe. These are nonspecific. 3. Minimal left pleural effusion. 4. Atherosclerotic change at the coronary arteries and aorta. Nebs. Abx. - Sepsis due to cellulitis of the rue, right olecranon bursitis. Vancomycin PLAN: - Resume diet. - PPI - Monitor hh - Transfuse as necessary - Supportive care - EGD +/- Dilatation once respiratory status improves - ? Barium swallow - Further recommendations to follow based on results of above - Pt seen and examined by Dr. Chiu and myself and this note is written on her behalf Joseline Polanco Jun 17, 2016 12:44
[2016-06-17] MEDS: methylPREDNISolone SOD SUCC 40 MG/1 ML VIAL IV SCH ×2 (13:26→22:04)
[2016-06-17] MEDS: guaiFENesin/CODEINE SYRUP 200 MG/20 MG/10 ML CUP PO PRN ×2 (16:40→22:07)
[2016-06-17] MEDS: LEVOFLOXACIN 500 MG TAB PO SCH (22:07)
[2016-06-17] MEDS: ZOLPIDEM TARTRATE 5 MG TAB PO PRN (22:07)
[2016-06-18] VITALS (26 sets, daily range): BP systolic 143–162; BP diastolic 70–87; PULSE 78–126; RESP 17–18; TEMP 98–98.7; O2SAT 90–98
[2016-06-18] MEDS: ACETAMINOPHEN 325 MG TAB PO PRN (02:23)
[2016-06-18] MEDS: methylPREDNISolone SOD SUCC 40 MG/1 ML VIAL IV SCH ×3 (05:57→21:00)
[2016-06-18] MEDS: INSULIN ASPART SUPPLEMENTAL SCALE SQ SCH ×4 (05:58→21:00)
[2016-06-18] MEDS: PIPERACIL-TAZO 4.5 GM PREMIX 100 ML IV SCH ×3 (05:58→22:36)
[2016-06-18] MEDS ORDERED: PHARMACY ORDERED LAB XX ONE (07:45)
[2016-06-18] MEDS: RESP: ALBUTEROL 2.5 MG/IPRATROPIUM 0.5 MG NEB (SCH) NEB ×4 (08:11→19:56)
[2016-06-18 08:41] LABS: AUTOMATED NEUTROPHIL # 3.2 TH/MM3 (1.8-7.7); EOSINOPHIL % 0.2 % (0.0-4.0); HEMATOCRIT 29.7 % (39.0-51.0); HEMO FLAGS DIFF FINAL; LYMPH % 12.4 % (9.0-44.0); LYMPHOCYTE # 0.5 TH/MM3 (1.0-4.8); MEAN CELL VOLUME 87.2 FL (80.0-100.0); MEAN CORPUSCULAR HEMOGLOBIN 28.4 PG (27.0-34.0); MEAN CORPUSCULAR HGB CONC 32.5 % (32.0-36.0); MONO % 3.4 % (0.0-8.0); PLATELET COUNT 229 TH/MM3 (150-450); RED BLOOD COUNT 3.41 MIL/MM3 (4.50-5.90); RED CELL DISTRIBUTION WIDTH 24.3 % (11.6-17.2); WHITE BLOOD COUNT 3.9 TH/MM3 (4.0-11.0)
[2016-06-18] MEDS: INSULIN DETEMIR 100 UNITS/ML VIAL SQ SCH ×2 (09:00→21:00)
[2016-06-18 09:05] LABS: POTASSIUM 4.2 MEQ/L (3.5-5.1)
[2016-06-18 09:28] LABS: CALCIUM-PROTEIN CORRECTED 8.4 MG/DL (8.5-10.1)
[2016-06-18] MEDS: VANCOMYCIN INJ 1,250 MG in SODIUM CHLOR 0.9% 250 ML INJ 250 ML IV SCH (09:49)
[2016-06-18] MEDS: FUROSEMIDE 20 MG/2 ML VIAL IV PUSH SCH (09:50)
[2016-06-18] MEDS: PANTOPRAZOLE SOD 40 MG DELAYED RELEASE TAB PO SCH (09:50)
[2016-06-18] MEDS: DILTIAZEM-CD 180 MG CAP ER PO SCH (09:50)
[2016-06-18] MEDS: POTASSIUM CHLORIDE 20 MEQ CONTROLLED RELEASE TAB PO SCH (09:50)
[2016-06-18] MEDS: ASPIRIN 81 MG CHEW TAB CHEW SCH (09:50)
[2016-06-18] MEDS: LISINOPRIL 20 MG TAB PO SCH (09:50)
[2016-06-18] MEDS: BUDESONIDE-FORMOTEROL 160/4.5 MCG INHALER INH SCH ×2 (09:52→21:00)
--- NOTE | 2016-06-18 12:41 | HHI.PR ---
Subjective Remarks Feels better. Has less leg edema . Good output with lasix. CT Chest shows some areas of Scarring with Multiple Nodules in the Left lung. Discussed possible bronchoscopy later this week. Objective Vital Signs Date Time Temp Pulse Resp B/P Pulse Ox O2 Delivery O2 Flow Rate FiO2 06/18/16 12:00 110 06/18/16 11:15 98.7 110 18 143/82 98 06/18/16 10:41 Nasal Cannula 3.00 06/18/16 10:05 110 06/18/16 08:12 92 Nasal Cannula 3.00 06/18/16 07:43 98.0 83 18 143/82 94 06/18/16 05:00 84 06/18/16 04:20 98.6 98 18 161/85 95 06/18/16 04:00 78 06/18/16 03:00 85 06/18/16 02:00 90 06/18/16 01:00 96 06/18/16 00:00 98.6 100 18 152/75 95 06/18/16 00:00 106 06/17/16 23:05 95 Nasal Cannula 4.00 Humidified 06/17/16 23:00 95 06/17/16 22:00 106 06/17/16 21:00 106 06/17/16 20:00 94 06/17/16 19:33 98.6 110 18 160/80 95 06/17/16 19:00 103 06/17/16 18:00 88 06/17/16 18:00 56 06/17/16 17:00 96 06/17/16 17:00 51 06/17/16 16:00 96 06/17/16 16:00 96 06/17/16 16:00 98.3 97 18 155/80 95 06/17/16 15:00 101 06/17/16 14:00 91 06/17/16 13:00 88 I/O 06/17/16 06/17/16 06/17/16 06/18/16 06/18/16 06/18/16 07:00 15:00 23:00 07:00 15:00 23:00 Intake Total 480 ml 720 ml 240 ml Output Total 250 ml 1300 ml 600 ml 300 ml Balance 230 ml -580 ml -360 ml -300 ml Intake Oral 480 ml 720 ml 240 ml Output Urine Total 250 ml 1300 ml 600 ml 300 ml # Bowel Movements 0 1 Result Diagram: 06/18/16 0800 06/18/16 0800 Objective Remarks This is an elderly averagely built white male who is pale and mildly dyspneic at rest. EXTREMITIES: There is no clubbing. There is 2+ leg edema, erythema of the elbows and mild arm edema. HEENT: Head normocephalic. Pupils are reactive and equal. Tongue was moist. Throat was clear. Ears, no inflammation. NECK: Supple. No venous distension. No thyromegaly or lymphadenopathy. CHEST: Decreased breath sounds at the bases with occasional wheezes over both lung saab.There are a few bibasilar crackles. HEART: The heart sounds are regular S1-S2 with no murmur. No S3. ABDOMEN: The abdomen is soft, nontender. No organomegaly. The bowel sounds are active. EXTREMITIES: Edema 1+ with diminished pulses and joint deformities of the extremities. SKIN: Tightly stretched over the extremities. NEUROLOGIC: He is alert and oriented. Moves all extremities.There are no deficits. Assessment and Plan Assessment and Plan IMPRESSION 1. Cellulitis of the right upper extremity resolving. 2. COPD with emphysema and chronic bronchitis 3. Coronary artery disease with stenting 4. Diabetes mellitus 5. History of hypertension. 6. Left Lung nodules Plan : 1. Cont antibiotics per ID. 2. Nebs qid , duoneb. 3. O2 at 2L. 4. Cont lasix 40 mg IV . 5. Will need bronchoscopy to evaluate lung infiltrates/ Will Schedule for Thursday am. 6. Solumedrol 40 mg IV q8h. Liv Pinedo MD Jun 18, 2016 12:41
--- NOTE | 2016-06-18 12:48 | HHI.PR ---
Subjective Remarks Follow-up pneumonia and COPD. Complains of significant dyspnea on exertion. On 3 L nasal cannula. Discussed with RN Objective Vitals Vital Signs Date Time Temp Pulse Resp B/P Pulse Ox O2 Delivery O2 Flow Rate FiO2 06/18/16 12:00 110 06/18/16 11:15 98.7 110 18 143/82 98 06/18/16 10:41 Nasal Cannula 3.00 06/18/16 10:05 110 06/18/16 08:12 92 Nasal Cannula 3.00 06/18/16 07:43 98.0 83 18 143/82 94 06/18/16 05:00 84 06/18/16 04:20 98.6 98 18 161/85 95 06/18/16 04:00 78 06/18/16 03:00 85 06/18/16 02:00 90 06/18/16 01:00 96 06/18/16 00:00 98.6 100 18 152/75 95 06/18/16 00:00 106 06/17/16 23:05 95 Nasal Cannula 4.00 Humidified 06/17/16 23:00 95 06/17/16 22:00 106 06/17/16 21:00 106 06/17/16 20:00 94 06/17/16 19:33 98.6 110 18 160/80 95 06/17/16 19:00 103 06/17/16 18:00 88 06/17/16 18:00 56 06/17/16 17:00 96 06/17/16 17:00 51 06/17/16 16:00 96 06/17/16 16:00 96 06/17/16 16:00 98.3 97 18 155/80 95 06/17/16 15:00 101 06/17/16 14:00 91 06/17/16 13:00 88 I/O 06/17/16 06/17/16 06/17/16 06/18/16 06/18/16 06/18/16 07:00 15:00 23:00 07:00 15:00 23:00 Intake Total 480 ml 720 ml 240 ml Output Total 250 ml 1300 ml 600 ml 300 ml Balance 230 ml -580 ml -360 ml -300 ml Intake Oral 480 ml 720 ml 240 ml Output Urine Total 250 ml 1300 ml 600 ml 300 ml # Bowel Movements 0 1 Result Diagram: 06/18/16 0800 06/18/16 0800 Imaging Last Impressions Chest CT 06/16/162028 Signed Impressions: Service Date/Time: Thursday, June 16, 2016 21:53 - CONCLUSION: 1. Two 1.3 cm irregular masses in the left lung. The one in the left upper lobe is cavitary. These could be further evaluated with a PET/FDG study to determine if they are metabolically active or not. Neoplastic change cannot be excluded. 2. Small 5 mm nodules seen in the left upper lobe and left lower lobe. These are nonspecific. 3. Minimal left pleural effusion. 4. Atherosclerotic change at the coronary arteries and aorta. Christoph Sandoval MD Chest X-Ray 06/16/16 0000 Signed Impressions: Service Date/Time: Thursday, June 16, 2016 19:45 - CONCLUSION: Left lower lobe consolidation or atelectasis. Some degree of effusion at the left base cannot be excluded. Christoph Sandoval MD Upper Extremity Ultrasound 06/09/16 0000 Signed Impressions: Service Date/Time: Thursday, June 09, 2016 18:12 - CONCLUSION: 1. Complex circumscribed soft tissue mass measuring up to 2.4 x 1.6 x 0.8 cm overlying the third finger with adjacent complex fluid collection measuring 8 mm. Etiology unclear. Stalin Alexis MD Elbow X-Ray 06/05/16 0000 Signed Impressions: Service Date/Time: June 17:02 - CONCLUSION: Minimal arthritic findings. Prominent soft tissue swelling of the olecranon process indicating possible olecranon bursitis. Matt Sapp MD Objective Remarks GENERAL: This is a well-nourished, well-developed patient, in no apparent distress on nasal cannula. CARDIOVASCULAR: Regular rate and regular rhythm without murmurs, gallops, or rubs. RESPIRATORY: Decreased breath sounds with no expiratory wheezes GASTROINTESTINAL: Abdomen soft, non-tender, nondistended. Normal, active bowel sounds MUSCULOSKELETAL: Right hand with incised wound on the dorsal surface with no signs of infection- bilateral pedal edema noted. NEURO: Alert & Oriented x4 to person, place, time, situation. Moves all ext x4 Procedures Incision and drainage of right hand abscess A/P Problem List: (1) SVT (supraventricular tachycardia) ICD Code: I47.1 Status: Acute (2) Severe sepsis ICD Code: A41.9 Status: Acute (3) COPD with acute exacerbation ICD Code: J44.1 Status: Acute (4) Sepsis ICD Code: A41.9 Status: Acute (5) Cellulitis of right upper extremity ICD Code: L03.113 Status: Acute (6) Abscess of hand, right ICD Code: L02.511 Status: Acute (7) Olecranon bursitis, right elbow ICD Code: M70.21 Status: Acute Assessment and Plan - severe sepsis due to cellulitis of the right upper extremity/ right olecranon bursitis-stable venous doppler of the upper extremities with no DVT-XR of the right elbow with possible olecranon bursitis- US of the right upper extremity with a complex mass overlying the right third finger- s/p I/D of the right nand mass/fluid collection. continue with vancomycin culture positive for MRSA, discontinue Levaquin- keep the right hand elevated- continue pain control- follow the cultures. blood cultures negative- ID/hand surgery and ortho following; recommended conservative treatment of olecranon bursitis. ID wants to continue IV vancomycin -HAP. Continue Zosyn and Levaquin. Follow-up sputum culture, urinary Legionella and pneumococcal antigen -Pulmonary nodules. Discussed with pulmonary, for bronchoscopy this Thursday -SVT- due to sepsis- - dc'ed IV cardizem and continue po cardizem- cardiology consult appreciated. -ischemic cardiomyopathy with mild levation of troponin- s/p stent placement 2001, follow-up angiogram 2 weeks ago no intervention needed per patient; continue aspirin and lisinopril elevated troponin likely due to tachycardia/ sepsis echo with EF 35% cardiology consult appreciated. -acute on chronic systolic CHF- continue IV diuretic and monitor electrolytes -COPD exacerbation-still with significant dyspnea on exertion continue steroids and neb treatment- will monitor. of note the patient is on home oxygen 2 L currently on 3-4 L -diabetes with hypoglycemic episode ;with no further hypoglycemia. Hyperglycemic secondary to steroids. Adjust Levemir accordingly.- accu-check with SSI. Patient counseled regarding compliance -anemia of chronic disease- s/p PRBC transfusion with improved H/H- will monitor stool occult blood positive 1. Continue PPI and consulted GI for endoscopy when lung status improves -DVT prophylaxis ; SCD's-no chemical prophylaxis for now due to anemia. -consulted PT/OT Discharge Planning Discharge to [facility] when ready Jamey Ny MD Jun 18, 2016 12:48
--- NOTE | 2016-06-18 14:01 | HHI.GIFU ---
Subjective Remarks Resting in bed. States his breathing is slightly improved, but still not to his baseline yet. Denies difficulty swallowing, although he states that it "does not go down right." No abdominal pain. Objective Vitals I&O Vital Signs Date Time Temp Pulse Resp B/P Pulse Ox O2 Delivery O2 Flow Rate FiO2 06/18/16 12:00 110 06/18/16 11:15 98.7 110 18 143/82 98 06/18/16 10:41 Nasal Cannula 3.00 06/18/16 10:05 110 06/18/16 08:12 92 Nasal Cannula 3.00 06/18/16 07:43 98.0 83 18 143/82 94 06/18/16 05:00 84 06/18/16 04:20 98.6 98 18 161/85 95 06/18/16 04:00 78 06/18/16 03:00 85 06/18/16 02:00 90 06/18/16 01:00 96 06/18/16 00:00 98.6 100 18 152/75 95 06/18/16 00:00 106 06/17/16 23:05 95 Nasal Cannula 4.00 Humidified 06/17/16 23:00 95 06/17/16 22:00 106 06/17/16 21:00 106 06/17/16 20:00 94 06/17/16 19:33 98.6 110 18 160/80 95 06/17/16 19:00 103 06/17/16 18:00 88 06/17/16 18:00 56 06/17/16 17:00 96 06/17/16 17:00 51 06/17/16 16:00 96 06/17/16 16:00 96 06/17/16 16:00 98.3 97 18 155/80 95 06/17/16 15:00 101 06/17/16 14:00 91 I/O 06/17/16 06/17/16 06/17/16 06/18/16 06/18/16 06/18/16 07:00 15:00 23:00 07:00 15:00 23:00 Intake Total 480 ml 720 ml 240 ml Output Total 250 ml 1300 ml 600 ml 700 ml Balance 230 ml -580 ml -360 ml -700 ml Intake Oral 480 ml 720 ml 240 ml Output Urine Total 250 ml 1300 ml 600 ml 700 ml # Bowel Movements 0 1 Laboratory Laboratory Tests Test 06/18/16 08:00 White Blood Count 3.9 Red Blood Count 3.41 Hemoglobin 9.7 Hematocrit 29.7 Mean Corpuscular Volume 87.2 Mean Corpuscular Hemoglobin 28.4 Mean Corpuscular Hemoglobin 32.5 Concent Red Cell Distribution Width 24.3 Platelet Count 229 Mean Platelet Volume 7.5 Neutrophils (%) (Auto) 83.0 Lymphocytes (%) (Auto) 12.4 Monocytes (%) (Auto) 3.4 Eosinophils (%) (Auto) 0.2 Basophils (%) (Auto) 1.0 Neutrophils # (Auto) 3.2 Lymphocytes # (Auto) 0.5 Monocytes # (Auto) 0.1 Eosinophils # (Auto) 0.0 Basophils # (Auto) 0.0 CBC Comment DIFF FINAL Differential Comment Sodium Level 141 Potassium Level 4.2 Chloride Level 101 Carbon Dioxide Level 31.0 Anion Gap 9 Blood Urea Nitrogen 30 Creatinine 1.05 Estimat Glomerular Filtration 69 Rate Random Glucose 127 Calcium Level 7.4 Protein Corrected Calcium 8.4 Magnesium Level 2.0 Total Protein 5.3 Vancomycin Level Trough 11.1 Date/Time Procedure Status Source Growth 06/13/16 14:03 Stool Occult Blood ([facility]) - Final Complete Stool Stool HEMOCCULT POSITIVE Imaging Last Impressions Chest CT 06/16/162028 Signed Impressions: Service Date/Time: Thursday, June 16, 2016 21:53 - CONCLUSION: 1. Two 1.3 cm irregular masses in the left lung. The one in the left upper lobe is cavitary. These could be further evaluated with a PET/FDG study to determine if they are metabolically active or not. Neoplastic change cannot be excluded. 2. Small 5 mm nodules seen in the left upper lobe and left lower lobe. These are nonspecific. 3. Minimal left pleural effusion. 4. Atherosclerotic change at the coronary arteries and aorta. Christoph Sandoval MD Chest X-Ray 06/16/16 0000 Signed Impressions: Service Date/Time: Thursday, June 16, 2016 19:45 - CONCLUSION: Left lower lobe consolidation or atelectasis. Some degree of effusion at the left base cannot be excluded. Christoph Sandoval MD Upper Extremity Ultrasound 06/09/16 0000 Signed Impressions: Service Date/Time: Thursday, June 09, 2016 18:12 - CONCLUSION: 1. Complex circumscribed soft tissue mass measuring up to 2.4 x 1.6 x 0.8 cm overlying the third finger with adjacent complex fluid collection measuring 8 mm. Etiology unclear. Stalin Alexis MD Elbow X-Ray 06/05/16 0000 Signed Impressions: Service Date/Time: June 17:02 - CONCLUSION: Minimal arthritic findings. Prominent soft tissue swelling of the olecranon process indicating possible olecranon bursitis. Matt Sapp MD Physical Exam HEENT: Normocephalic; atraumatic; no jaundice. CHEST: Resp even, mildly labored, very diminished breath sounds, sob on exertion. O2 4L CARDIAC: RRR ABDOMEN: Soft, nondistended, nontender; no hepatosplenomegaly; bowel sounds are present in all four quadrants. EXTREMITIES: No clubbing, cyanosis, or edema. 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 Assessment and Plan Plan ASSESSMENT: - Anemia, Hemoccult (+) Stools. 9.7/29.7. Pt is absolutely refusing colonoscopy, but would like to have the EGD done. His respiratory status is slightly improved from yesterday, but still on O2 3L via n/c (baseline 2), diminished breath sounds, sob on minimal exertion. Will hold on EGD until respiratory status improves, ? Thursday. - Reflux, coughing up food particles. States he has no issues swallowing but when he lays down he will later cough up food particles such as corn or beans. He has had EGD with dilatations in the past but cannot tell me if he has an esophageal diverticulum. PPI - COPD/Patchy bibasilar infiltrates on cxr. CT thorax with 1. Two 1.3 cm irregular masses in the left lung. The one in the left upper lobe is cavitary. These could be further evaluated with a PET/FDG study to determine if they are metabolically active or not. Neoplastic change cannot be excluded. 2. Small 5 mm nodules seen in the left upper lobe and left lower lobe. These are nonspecific. 3. Minimal left pleural effusion. 4. Atherosclerotic change at the coronary arteries and aorta. Nebs. Abx. - Sepsis due to cellulitis of the rue, right olecranon bursitis. Vancomycin PLAN: - Resume diet. - PPI - Monitor hh - Transfuse as necessary - Supportive care - EGD +/- Dilatation once respiratory status improves, ? Thursday - Further recommendations to follow based on results of above - Pt seen and examined by Dr. Chiu and myself and this note is written on her behalf Joseline Polanco Jun 18, 2016 14:01
[2016-06-18] MEDS: guaiFENesin/CODEINE SYRUP 200 MG/20 MG/10 ML CUP PO PRN (16:12)
[2016-06-18] MEDS: ZOLPIDEM TARTRATE 5 MG TAB PO PRN (22:36)
[2016-06-18] MEDS: LEVOFLOXACIN 500 MG TAB PO SCH (22:40)
[2016-06-19] VITALS (24 sets, daily range): BP systolic 146–172; BP diastolic 84–95; PULSE 70–128; RESP 18–19; TEMP 98.2–98.4; O2SAT 94–96
[2016-06-19] MEDS: ACETAMINOPHEN/HYDROcodone 325 MG/5 MG TAB PO PRN ×2 (01:55→21:22)
[2016-06-19] MEDS: methylPREDNISolone SOD SUCC 40 MG/1 ML VIAL IV SCH ×2 (05:33→21:23)
[2016-06-19] MEDS: PIPERACIL-TAZO 4.5 GM PREMIX 100 ML IV SCH ×3 (05:33→21:24)
[2016-06-19] MEDS: INSULIN ASPART SUPPLEMENTAL SCALE SQ SCH ×4 (05:41→21:22)
[2016-06-19] MEDS: RESP: ALBUTEROL 2.5 MG/IPRATROPIUM 0.5 MG NEB (SCH) NEB ×4 (07:53→21:38)
[2016-06-19] MEDS: ASPIRIN 81 MG CHEW TAB CHEW SCH (08:23)
[2016-06-19] MEDS: INSULIN DETEMIR 100 UNITS/ML VIAL SQ SCH ×2 (08:32→21:00)
[2016-06-19] MEDS: LISINOPRIL 20 MG TAB PO SCH (08:33)
[2016-06-19] MEDS: VANCOMYCIN INJ 1,250 MG in SODIUM CHLOR 0.9% 250 ML INJ 250 ML IV SCH (08:33)
[2016-06-19] MEDS: DILTIAZEM-CD 240 MG CAP ER PO SCH (08:33)
[2016-06-19] MEDS: FUROSEMIDE 20 MG/2 ML VIAL IV PUSH SCH (08:33)
[2016-06-19] MEDS: POTASSIUM CHLORIDE 20 MEQ CONTROLLED RELEASE TAB PO SCH (08:33)
[2016-06-19] MEDS: PANTOPRAZOLE SOD 40 MG DELAYED RELEASE TAB PO SCH (08:33)
[2016-06-19] MEDS: BUDESONIDE-FORMOTEROL 160/4.5 MCG INHALER INH SCH ×2 (08:34→21:00)
--- NOTE | 2016-06-19 08:34 | HHI.PR ---
Subjective Remarks Follow-up COPD. Improving shortness of breath oxygen down to 2 L. Refuses fingersticks and complains of watering of the eyes. Discussed with RN Objective Vitals Vital Signs Date Time Temp Pulse Resp B/P Pulse Ox O2 Delivery O2 Flow Rate FiO2 06/19/16 07:53 94 Nasal Cannula 2.00 06/19/16 07:45 Nasal Cannula 2.00 06/19/16 05:00 92 06/19/16 04:00 98.2 73 18 157/84 94 06/19/16 04:00 82 06/19/16 03:00 86 06/19/16 02:14 Nasal Cannula 2.00 06/19/16 02:00 92 06/19/16 01:00 108 06/19/16 00:00 92 06/18/16 23:35 98.2 91 18 162/86 92 06/18/16 23:00 92 06/18/16 22:00 92 06/18/16 21:00 100 06/18/16 20:00 88 06/18/16 19:56 93 Nasal Cannula 3.00 06/18/16 19:30 98.2 94 18 160/87 93 06/18/16 19:00 92 06/18/16 16:16 98.0 89 17 157/70 90 06/18/16 16:00 90 06/18/16 15:00 102 06/18/16 14:00 126 06/18/16 13:00 106 06/18/16 12:00 110 06/18/16 11:15 98.7 110 18 143/82 98 06/18/16 10:41 Nasal Cannula 3.00 06/18/16 10:05 110 I/O 06/18/16 06/18/16 06/18/16 06/19/16 06/19/16 06/19/16 07:00 15:00 23:00 07:00 15:00 23:00 Intake Total 240 ml 500 ml Output Total 600 ml 700 ml Balance -360 ml -700 ml 500 ml Intake Oral 240 ml IV Total 500 ml Output Urine Total 600 ml 700 ml # Bowel Movements 1 1 Result Diagram: 06/18/16 0800 06/18/16 0800 Objective Remarks GENERAL: This is a well-nourished, well-developed patient, in no apparent distress on nasal cannula. HEENT: Eyes without signs of infection CARDIOVASCULAR: Regular rate and regular rhythm without murmurs, gallops, or rubs. RESPIRATORY: Decreased breath sounds with no expiratory wheezes GASTROINTESTINAL: Abdomen soft, non-tender, nondistended. Normal, active bowel sounds MUSCULOSKELETAL: Right hand with incised wound on the dorsal surface with no signs of infection- bilateral pedal edema noted. NEURO: Alert & Oriented x4 to person, place, time, situation. Moves all ext x4 Procedures Incision and drainage of right hand abscess A/P Problem List: (1) SVT (supraventricular tachycardia) ICD Code: I47.1 Status: Acute (2) Severe sepsis ICD Code: A41.9 Status: Acute (3) COPD with acute exacerbation ICD Code: J44.1 Status: Acute (4) Sepsis ICD Code: A41.9 Status: Acute (5) Cellulitis of right upper extremity ICD Code: L03.113 Status: Acute (6) Abscess of hand, right ICD Code: L02.511 Status: Acute (7) Olecranon bursitis, right elbow ICD Code: M70.21 Status: Acute Assessment and Plan - severe sepsis due to cellulitis of the right upper extremity/ right olecranon bursitis-stable venous doppler of the upper extremities with no DVT-XR of the right elbow with possible olecranon bursitis- US of the right upper extremity with a complex mass overlying the right third finger- s/p I/D of the right nand mass/fluid collection. continue with vancomycin culture positive for MRSA, discontinue Levaquin- keep the right hand elevated- continue pain control- follow the cultures. blood cultures negative- ID/hand surgery and ortho following; recommended conservative treatment of olecranon bursitis. ID wants to continue IV vancomycin -HAP. Continue Zosyn and Levaquin. Follow-up sputum culture, urinary Legionella and pneumococcal antigen -Pulmonary nodules. Discussed with pulmonary, for bronchoscopy tomorrow -SVT- due to sepsis- - dc'ed IV cardizem and continue po cardizem- cardiology consult appreciated. -ischemic cardiomyopathy with mild levation of troponin- s/p stent placement 2001, follow-up angiogram 2 weeks ago no intervention needed per patient; continue aspirin and lisinopril elevated troponin likely due to tachycardia/ sepsis echo with EF 35% cardiology consult appreciated. -acute on chronic systolic CHF- continue IV diuretic and monitor electrolytes -COPD exacerbation-improving dyspnea on exertion continue steroids and neb treatment- will monitor. of note the patient is on home oxygen 2 L currently on 2 L -diabetes with hypoglycemic episode ;with no further hypoglycemia. Hyperglycemic secondary to steroids. Adjust Levemir accordingly.- accu-check with SSI. Patient counseled regarding compliance -anemia of chronic disease- s/p PRBC transfusion with improved H/H- will monitor stool occult blood positive 1. Continue PPI and consulted GI for endoscopy when lung status improves -Hypertension. Suboptimal control increase Cardizem. Dry eyes. Eye lubricants. DVT prophylaxis ; SCD's-no chemical prophylaxis for now due to anemia. -consulted PT/OT Discharge Planning Discharge to [facility] when ready Jamey Ny MD Jun 19, 2016 08:34
[2016-06-19] MEDS: HYPROMELLOSE 0.3 % OPTH GEL 10 GM (0.34 FL OZ) TUBE EACH EYE SCH ×3 (10:00→21:25)
[2016-06-19] MEDS: guaiFENesin/CODEINE SYRUP 200 MG/20 MG/10 ML CUP PO PRN ×2 (12:26→23:20)
[2016-06-19] MEDS ORDERED: DEXT 5%-NACL 0.45% 1000 ML INJ 1,000 ML IV SCH (13:17)
[2016-06-19] MEDS ORDERED: RESP: ALBUTEROL CONC 2.5 MG/0.5 ML NEB NEB SCH (13:30)
--- NOTE | 2016-06-19 17:32 | HHI.GIFU ---
GI Follow-up Note Consult Follow-up Subjective: Patient laying in bed still dysphagia.Having difficulty breathing , not improved .We will hold on egd/dilatation until better, unless emergency.We will wait for pulmonary clearance . He is refusing colonoscopy , but will agree with egd/dilation when stable Objective: PHYSICAL EXAMINATION:in bed , labored breathing, on oxygen Vitals signs stable No fever Vital Signs Date Time Temp Pulse Resp B/P Pulse Ox O2 Delivery O2 Flow Rate FiO2 06/19/16 16:00 98.2 117 19 172/95 96 06/19/16 16:00 98 06/19/16 15:00 94 06/19/16 14:00 94 06/19/16 13:00 90 06/19/16 12:00 96 06/19/16 12:00 98.4 103 18 146/89 95 06/19/16 11:00 122 06/19/16 10:00 128 HEENT: Pupils round and reactive to light; normocephalic; atraumatic; no jaundice. Throat is clear. NECK: Neck is supple, no JVD, no lymphadenopathy. CHEST: Chest is clear to auscultation and percussion, wheezing, decreased air entry bilateral worse on right CARDIAC: Regular rate and rhythm with no murmur gallop or rubs. ABDOMEN: Soft, nondistended, nontender; no hepatosplenomegaly; bowel sounds are present in all four quadrants. EXTREMITIES: No clubbing, cyanosis, edema. SKIN: Normal; no rash; no jaundice. HOBBER: No focal deficits; alert and oriented times three. Available Data (labs, X- Rays, Procedues) : Laboratory Tests Test 06/18/16 08:00 White Blood Count 3.9 TH/MM3 Red Blood Count 3.41 MIL/MM3 Hemoglobin 9.7 GM/DL Hematocrit 29.7 % Mean Corpuscular Volume 87.2 FL Mean Corpuscular Hemoglobin 28.4 PG Mean Corpuscular Hemoglobin 32.5 % Concent Red Cell Distribution Width 24.3 % Platelet Count 229 TH/MM3 Mean Platelet Volume 7.5 FL Neutrophils (%) (Auto) 83.0 % Lymphocytes (%) (Auto) 12.4 % Monocytes (%) (Auto) 3.4 % Eosinophils (%) (Auto) 0.2 % Basophils (%) (Auto) 1.0 % Neutrophils # (Auto) 3.2 TH/MM3 Lymphocytes # (Auto) 0.5 TH/MM3 Monocytes # (Auto) 0.1 TH/MM3 Eosinophils # (Auto) 0.0 TH/MM3 Basophils # (Auto) 0.0 TH/MM3 CBC Comment DIFF FINAL Differential Comment Sodium Level 141 MEQ/L Potassium Level 4.2 MEQ/L Chloride Level 101 MEQ/L Carbon Dioxide Level 31.0 MEQ/L Anion Gap 9 MEQ/L Blood Urea Nitrogen 30 MG/DL Creatinine 1.05 MG/DL Estimat Glomerular Filtration 69 ML/MIN Rate Random Glucose 127 MG/DL Calcium Level 7.4 MG/DL Protein Corrected Calcium 8.4 MG/DL Magnesium Level 2.0 MG/DL Total Protein 5.3 GM/DL Vancomycin Level Trough 11.1 MCG/ML ASSESSMENT/PLAN: anemia, hem positive stools, no active bleeding-refusing colonosocpy, will agree with egd dysphagia-egd/dilatation once cleared by pulmonary, currently not stable Recommendations egd/dilatation once pulmonary cleared colonoscopy if agrres same time if egd cannot be done we will schedule ba swallow It was a pleasure seeing Ric Garcia. Thank you for this consult. Entered by: Orquidea Higuera MD Jun 19, 2016 17:32
--- NOTE | 2016-06-19 19:31 | HHI.PR ---
Subjective Remarks Improved.Has less leg edema . Good output with lasix. CT Chest shows some areas of Scarring with Multiple Nodules in the Left lung. Discussed about bronchoscopy in am. Objective Vital Signs Date Time Temp Pulse Resp B/P Pulse Ox O2 Delivery O2 Flow Rate FiO2 06/19/16 18:00 98 06/19/16 17:00 86 06/19/16 16:00 98.2 117 19 172/95 96 06/19/16 16:00 98 06/19/16 15:00 94 06/19/16 14:00 94 06/19/16 13:00 90 06/19/16 12:00 96 06/19/16 12:00 98.4 103 18 146/89 95 06/19/16 11:00 122 06/19/16 10:00 128 06/19/16 09:00 106 06/19/16 08:00 98.2 90 18 160/85 94 06/19/16 08:00 94 06/19/16 07:53 94 Nasal Cannula 2.00 06/19/16 07:45 Nasal Cannula 2.00 06/19/16 07:00 70 06/19/16 05:00 92 06/19/16 04:00 98.2 73 18 157/84 94 06/19/16 04:00 82 06/19/16 03:00 86 06/19/16 02:14 Nasal Cannula 2.00 06/19/16 02:00 92 06/19/16 01:00 108 06/19/16 00:00 92 06/18/16 23:35 98.2 91 18 162/86 92 06/18/16 23:00 92 06/18/16 22:00 92 06/18/16 21:00 100 06/18/16 20:00 88 06/18/16 19:56 93 Nasal Cannula 3.00 06/18/16 19:30 98.2 94 18 160/87 93 I/O 06/18/16 06/18/16 06/18/16 06/19/16 06/19/16 06/19/16 07:00 15:00 23:00 07:00 15:00 23:00 Intake Total 240 ml 500 ml 1270 ml Output Total 600 ml 700 ml 800 ml Balance -360 ml -700 ml 500 ml 470 ml Intake Oral 240 ml 620 ml IV Total 500 ml 650 ml Output Urine Total 600 ml 700 ml 800 ml # Bowel Movements 1 1 1 Result Diagram: 06/18/16 0800 06/18/16 0800 Objective Remarks This is an elderly averagely built white male who is pale and mildly dyspneic at rest. EXTREMITIES: There is no clubbing. There is 2+ leg edema, erythema of the elbows . HEENT: Head normocephalic. Pupils are reactive and equal. Tongue was moist. Throat was clear. Ears, no inflammation. NECK: Supple. No venous distension. No thyromegaly or lymphadenopathy. CHEST: Decreased breath sounds at the bases with occasional wheezes over both lung saab.There are a occ bibasilar crackles. HEART: The heart sounds are regular S1-S2 with no murmur. No S3. ABDOMEN: The abdomen is soft, nontender. No organomegaly. The bowel sounds are active. EXTREMITIES: Edema 1+ with diminished pulses and joint deformities of the extremities. SKIN: Tightly stretched over the extremities. NEUROLOGIC: He is alert and oriented. Moves all extremities.There are no deficits. Assessment and Plan Assessment and Plan IMPRESSION 1. Cellulitis of the right upper extremity resolving. 2. COPD with emphysema and chronic bronchitis 3. Coronary artery disease with stenting 4. Diabetes mellitus 5. History of hypertension. 6. Left Lung nodules Plan : 1. Cont antibiotics per ID. 2. Nebs qid , duoneb. 3. O2 at 2L. 4. Cont lasix 40 mg IV daily. 5. Will do bronchoscopy in am. to evaluate lung infiltrates. Risks were explained. 6. Solumedrol 40 mg IV q12h. Liv Pinedo MD Jun 19, 2016 19:31
[2016-06-19] MEDS: LEVOFLOXACIN 500 MG TAB PO SCH (21:23)
[2016-06-19] MEDS: ZOLPIDEM TARTRATE 5 MG TAB PO PRN (23:20)
[2016-06-20] VITALS (26 sets, daily range): BP systolic 152–165; BP diastolic 72–87; PULSE 71–118; RESP 18–20; TEMP 97.8–98.1; O2SAT 93–97
[2016-06-20] MEDS: HYPROMELLOSE 0.3 % OPTH GEL 10 GM (0.34 FL OZ) TUBE EACH EYE SCH ×4 (04:00→22:00)
[2016-06-20] MEDS: PIPERACIL-TAZO 4.5 GM PREMIX 100 ML IV SCH ×3 (05:00→21:00)
[2016-06-20] MEDS: INSULIN ASPART SUPPLEMENTAL SCALE SQ SCH ×4 (07:00→20:35)
[2016-06-20] MEDS: RESP: ALBUTEROL 2.5 MG/IPRATROPIUM 0.5 MG NEB (SCH) NEB ×4 (07:29→20:00)
[2016-06-20] MEDS: VANCOMYCIN INJ 1,250 MG in SODIUM CHLOR 0.9% 250 ML INJ 250 ML IV SCH (08:08)
[2016-06-20] MEDS: SODIUM CHLORIDE 0.9% FLUSH 5 ML FLUSH IVF PRN (08:08)
[2016-06-20] MEDS: FUROSEMIDE 20 MG/2 ML VIAL IV PUSH SCH ×2 (08:09→17:16)
[2016-06-20] MEDS: methylPREDNISolone SOD SUCC 40 MG/1 ML VIAL IV SCH ×2 (08:09→21:00)
[2016-06-20] MEDS: POTASSIUM CHLORIDE 20 MEQ CONTROLLED RELEASE TAB PO SCH ×2 (08:09→20:16)
[2016-06-20] MEDS: BUDESONIDE-FORMOTEROL 160/4.5 MCG INHALER INH SCH ×2 (08:09→20:14)
[2016-06-20] MEDS: PANTOPRAZOLE SOD 40 MG DELAYED RELEASE TAB PO SCH (08:09)
[2016-06-20] MEDS: LISINOPRIL 20 MG TAB PO SCH (08:09)
[2016-06-20] MEDS: DILTIAZEM-CD 240 MG CAP ER PO SCH (08:09)
[2016-06-20] MEDS: INSULIN DETEMIR 100 UNITS/ML VIAL SQ SCH ×2 (08:10→20:18)
--- NOTE | 2016-06-20 11:06 | HHI.PR ---
Subjective Remarks F/U COPD. improving SOB on 4 L NC awaiting bronch. Dw RN, f/u pulmonary clearance for EGD and resumption of asa Objective Vitals Vital Signs Date Time Temp Pulse Resp B/P Pulse Ox O2 Delivery O2 Flow Rate FiO2 06/20/16 08:00 97.9 96 18 157/79 94 06/20/16 08:00 90 06/20/16 07:29 97 Nasal Cannula 4.00 06/20/16 07:20 Nasal Cannula 2.00 06/20/16 07:00 71 06/20/16 06:00 118 06/20/16 05:00 72 06/20/16 04:00 98.0 89 18 152/72 96 06/20/16 04:00 82 06/20/16 03:00 86 06/20/16 02:00 86 06/20/16 01:00 90 06/20/16 00:00 98 06/20/16 00:00 97.9 93 18 165/81 97 06/19/16 23:00 92 06/19/16 22:00 98 06/19/16 21:40 95 Nasal Cannula 4.00 06/19/16 21:00 98 06/19/16 20:00 96 06/19/16 20:00 98.2 94 18 168/85 95 06/19/16 20:00 96 Nasal Cannula 3.00 06/19/16 18:00 98 06/19/16 17:00 86 06/19/16 16:00 98.2 117 19 172/95 96 06/19/16 16:00 98 06/19/16 15:00 94 06/19/16 14:00 94 06/19/16 13:00 90 06/19/16 12:00 96 06/19/16 12:00 98.4 103 18 146/89 95 I/O 06/19/16 06/19/16 06/19/16 06/20/16 06/20/16 06/20/16 07:00 15:00 23:00 07:00 15:00 23:00 Intake Total 1270 ml 680 ml Output Total 800 ml 200 ml Balance 470 ml 480 ml Intake Oral 620 ml 480 ml IV Total 650 ml 200 ml Output Urine Total 800 ml 200 ml # Voids 3 # Bowel Movements 1 1 Result Diagram: 06/18/16 0800 06/20/16 0659 Objective Remarks GENERAL: This is a well-nourished, well-developed patient, in no apparent distress on nasal cannula. HEENT: Eyes without signs of infection CARDIOVASCULAR: Regular rate and regular rhythm without murmurs, gallops, or rubs. RESPIRATORY: Decreased breath sounds with no expiratory wheezes GASTROINTESTINAL: Abdomen soft, non-tender, nondistended. Normal, active bowel sounds MUSCULOSKELETAL: Right hand with incised wound on the dorsal surface with no signs of infection- bilateral pedal edema noted. NEURO: Alert & Oriented x4 to person, place, time, situation. Moves all ext x4 Procedures Incision and drainage of right hand abscess A/P Problem List: (1) SVT (supraventricular tachycardia) ICD Code: I47.1 Status: Acute (2) Severe sepsis ICD Code: A41.9 Status: Acute (3) COPD with acute exacerbation ICD Code: J44.1 Status: Acute (4) Sepsis ICD Code: A41.9 Status: Acute (5) Cellulitis of right upper extremity ICD Code: L03.113 Status: Acute (6) Abscess of hand, right ICD Code: L02.511 Status: Acute (7) Olecranon bursitis, right elbow ICD Code: M70.21 Status: Acute Assessment and Plan - severe sepsis due to cellulitis of the right upper extremity/ right olecranon bursitis-stable venous doppler of the upper extremities with no DVT-XR of the right elbow with possible olecranon bursitis- US of the right upper extremity with a complex mass overlying the right third finger- s/p I/D of the right nand mass/fluid collection. continue with vancomycin culture positive for MRSA, discontinue Levaquin- keep the right hand elevated- continue pain control- follow the cultures. blood cultures negative- ID/hand surgery and ortho following; recommended conservative treatment of olecranon bursitis. ID wants to continue IV vancomycin -HAP. Continue Zosyn and Levaquin. Follow-up sputum culture, urinary Legionella and pneumococcal antigen -Pulmonary nodules. Discussed with pulmonary, for bronchoscopy today -SVT- due to sepsis- - dc'ed IV cardizem and continue po cardizem- cardiology consult appreciated. -ischemic cardiomyopathy with mild levation of troponin- s/p stent placement 2001, follow-up angiogram 2 weeks ago no intervention needed per patient; continue aspirin and lisinopril elevated troponin likely due to tachycardia/ sepsis echo with EF 35% cardiology consult appreciated. -acute on chronic systolic CHF- continue IV diuretic and monitor electrolytes. Repeat BMP and magnesium in the morning -COPD exacerbation-improving dyspnea on exertion continue steroids and neb treatment- will monitor. of note the patient is on home oxygen 2 L currently on 4 L -diabetes with hypoglycemic episode ;with no further hypoglycemia. Hyperglycemic secondary to steroids. Adjust Levemir accordingly.- accu-check with SSI. Patient counseled regarding compliance -anemia of chronic disease- s/p PRBC transfusion with improved H/H- will monitor stool occult blood positive 1. Continue PPI and consulted GI for endoscopy when lung status improves. Pulmonary for clearance. Also start aspirin if okay with GI and pulmonary -Hypertension. Suboptimal control we'll increase Lasix and continue Cardizem. Dry eyes. Eye lubricants. DVT prophylaxis ; SCD's-no chemical prophylaxis for now due to anemia. -consulted PT/OT Discharge Planning Discharge to [facility] when ready Jamey Ny MD Jun 20, 2016 11:06
--- NOTE | 2016-06-20 11:22 | RADRPT ---
EXAM DATE/TIME: 06/20/2016 10:13 [facility] COMPARISON: No previous studies available for comparison. INDICATIONS : Left arm abscess. MEDICAL HISTORY : Gastroesophageal reflux disease. COPD. Hypertension. Muscle weakness. Abdominal aortic aneurysm. Myoc ardial infarction. Afib. Chronic renal disease. Bladder cancer. Arthritis. Peripheral vascular diseas e. SURGICAL HISTORY : Coronary artery stent. ENCOUNTER: Initial ACUITY: 1 day PAIN SCORE: 1/10 LOCATION: Left arm. AREA EVALUATED: Left posterior hand. FINDINGS: MASSES: None. FLUID COLLECTIONS: None. OTHER: Negative. CONCLUSION: Negative ultrasound with no evidence of abscess. Beau Croft MD on June 20, 2016 at 11:20 Board Certified Radiologist. This report was verified electronically.
[2016-06-20] MEDS ORDERED: RESP: ALBUTEROL 2.5 MG/3 ML NEB (PRN) ONE (11:33)
[2016-06-20] MEDS ORDERED: KETAMINE HCL 500 MG/5 ML VIAL ONE (11:51)
[2016-06-20] MEDS ORDERED: PROPOFOL 200 MG/20 ML AMP IV ONE (12:00)
[2016-06-20] MEDS ORDERED: LIDOCAINE HCL 2% 50 ML VIAL E-TRACHE ONE (12:07)
[2016-06-20] MEDS ORDERED: RESP: ALBUTEROL 2.5 MG/3 ML NEB (PRN) NEB (12:30)
[2016-06-20] MEDS ORDERED: DO NOT ADM ANY ANTICOAGULANT DRUGS XX PRN (12:42)
--- NOTE | 2016-06-20 13:07 | RADRPT ---
EXAM DATE/TIME: 06/20/2016 12:44 [facility] COMPARISON: CT THORAX W/O CONTRAST, June 16, 2016, 21:53. CHEST SINGLE AP, June 16, 2016, 19:45. INDICATIONS : Post bronchoscopy. Small lung masses seen on CT. MEDICAL HISTORY : Gastroesophageal reflux disease. Myocardial infarction. COPD. Hypertension. Abdominal aortic ane urysm. Afib. Chronic renal disease. Bladder cancer. Peripheral vascular disease. SURGICAL HISTORY : Coronary artery stent. ENCOUNTER: Subsequent ACUITY: 1 day PAIN SCORE: 0/10 LOCATION: chest FINDINGS: A single AP portable erect view of the chest was obtained and demonstrates stable streaky opacity at the left lung base with blunting of the costophrenic angle. There are no new confluent infiltrates. T he heart size remains within normal limits. The known small masses seen on CT are not visualized. The bony thorax remains intact with overlying electrocardiogram leads. CONCLUSION: 1. Stable appearance with no evidence of pneumothorax. 2. Streaky opacity remains the left lung base with blunting of the costophrenic angle. 3. The known small masses seen on CT are not visualized. Beau Croft MD on June 20, 2016 at 13:02 Board Certified Radiologist. This report was verified electronically.
[2016-06-20] MEDS ORDERED: MIDAZOLAM HCL 2 MG/2 ML VIAL ONE (13:34)
--- NOTE | 2016-06-20 17:48 | RADRPT ---
EXAM DATE/TIME: 06/20/2016 17:17 [facility] COMPARISON: No previous studies available for comparison. INDICATIONS : Dysphagia. Patient had recent esophageal dilatation by report. FLUORO TIME: 1.0 minutes IMAGE COUNT: 7 CONTRAST: 1. Liquid E-Z Paque Barium Sulfate (60% w/v, 41% w.w) E-Z HD Barium Sulfate (98% w.w) MEDICAL HISTORY : Gastroesophageal reflux disease. SURGICAL HISTORY : None. ENCOUNTER: Initial ACUITY: 1 day PAIN SCORE: 0/10 LOCATION: Esophagus FINDINGS: The study was suboptimal due to the patient's inability to stand without assistance. Patient is not a ble to take large swallows as well. Air-contrast views of the hypopharynx demonstrate a normal mucosa l surface without filling defect. Rapid sequence images of the hypopharynx and cervical esophagus du ring the passage of barium demonstrate a normal swallowing function. No evidence of aspiration. Mul tiphasic examination of the esophagus demonstrates no esophageal fold thickening, ulceration, or fill ing defect. The gastroesophageal junction is normal in configuration without evidence of hiatal agnes ia. CONCLUSION: Unremarkable exam with no evidence of stricture or obstruction. Beau Croft MD on June 20, 2016 at 17:45 Board Certified Radiologist. This report was verified electronically.
--- NOTE | 2016-06-20 19:04 | HHI.PR ---
Subjective Remarks complains of no pain over right hand no fever Objective Vital Signs Date Time Temp Pulse Resp B/P Pulse Ox O2 Delivery O2 Flow Rate FiO2 06/20/16 18:00 96 06/20/16 17:00 106 06/20/16 16:00 96 06/20/16 16:00 98.1 109 20 153/83 93 06/20/16 15:13 98 06/20/16 15:00 100 06/20/16 13:30 98.4 83 16 132/64 93 Nasal Cannula 3 06/20/16 13:15 86 14 133/64 93 06/20/16 13:00 87 12 135/70 97 06/20/16 12:45 110 16 148/69 97 Nasal Cannula 3 06/20/16 12:38 98.4 110 22 133/54 96 Simple Mask 6 06/20/16 12:00 98.1 84 20 159/83 96 06/20/16 12:00 83 06/20/16 11:00 92 06/20/16 10:00 94 06/20/16 09:00 78 06/20/16 08:00 97.9 96 18 157/79 94 06/20/16 08:00 90 06/20/16 07:29 97 Nasal Cannula 4.00 06/20/16 07:20 Nasal Cannula 2.00 06/20/16 07:00 71 06/20/16 07:00 84 06/20/16 06:00 118 06/20/16 05:00 72 06/20/16 04:00 98.0 89 18 152/72 96 06/20/16 04:00 82 06/20/16 03:00 86 06/20/16 02:00 86 06/20/16 01:00 90 06/20/16 00:00 98 06/20/16 00:00 97.9 93 18 165/81 97 06/19/16 23:00 92 06/19/16 22:00 98 06/19/16 21:40 95 Nasal Cannula 4.00 06/19/16 21:00 98 06/19/16 20:00 96 06/19/16 20:00 98.2 94 18 168/85 95 06/19/16 20:00 96 Nasal Cannula 3.00 I/O 06/19/16 06/19/16 06/19/16 06/20/16 06/20/16 2/17/17 07:00 15:00 23:00 07:00 15:00 23:00 Intake Total 1270 ml 680 ml 150 ml 830 ml Output Total 800 ml 200 ml 950 ml Balance 470 ml 480 ml 150 ml -120 ml Intake Oral 620 ml 480 ml 480 ml IV Total 650 ml 200 ml 350 ml Other 150 ml Output Urine Total 800 ml 200 ml 950 ml # Voids 3 # Bowel Movements 1 1 1 right hand: wound measuring about 1 cm over the third mp joint mild serous drainage able to make a full fist full extension of the finger cultures: mrsa Result Diagram: 06/18/16 0800 06/20/16 0659 Assessment and Plan Assessment and Plan 76 year old male s/p incision and drainage right hand abscess POD 10 wound cleaned with normal saline steri strip applied loosely dry dressing applied daily dressing changes antibiotics based on ID recommendations cleared from hand surgery. Frantz Wellington MD Jun 20, 2016 19:04
[2016-06-20] MEDS: guaiFENesin/CODEINE SYRUP 200 MG/20 MG/10 ML CUP PO PRN (20:13)
[2016-06-20] MEDS: LEVOFLOXACIN 500 MG TAB PO SCH (20:16)
[2016-06-20] MEDS: ZOLPIDEM TARTRATE 5 MG TAB PO PRN (22:33)
[2016-06-20] MEDS: ACETAMINOPHEN/HYDROcodone 325 MG/5 MG TAB PO PRN (23:42)
[2016-06-21] VITALS (29 sets, daily range): BP systolic 159–171; BP diastolic 76–95; PULSE 66–118; RESP 20–26; TEMP 97.9–98; O2SAT 92–97
[2016-06-21] MEDS: ACETAMINOPHEN 325 MG TAB PO PRN (01:23)
[2016-06-21] MEDS: ALPRAZolam 0.25 MG TAB PO PRN (03:51)
[2016-06-21] MEDS: HYPROMELLOSE 0.3 % OPTH GEL 10 GM (0.34 FL OZ) TUBE EACH EYE SCH ×4 (03:52→20:06)
[2016-06-21] MEDS: PIPERACIL-TAZO 4.5 GM PREMIX 100 ML IV SCH ×2 (05:00→12:46)
[2016-06-21] MEDS: INSULIN ASPART SUPPLEMENTAL SCALE SQ SCH ×4 (06:52→20:45)
[2016-06-21 08:06] LABS: HEMATOCRIT 27.8 % (39.0-51.0); MEAN CELL VOLUME 85.4 FL (80.0-100.0); MEAN CORPUSCULAR HEMOGLOBIN 28.6 PG (27.0-34.0); MEAN CORPUSCULAR HGB CONC 33.5 % (32.0-36.0); PLATELET COUNT 204 TH/MM3 (150-450); RED BLOOD COUNT 3.25 MIL/MM3 (4.50-5.90); RED CELL DISTRIBUTION WIDTH 24.6 % (11.6-17.2); WHITE BLOOD COUNT 5.5 TH/MM3 (4.0-11.0)
[2016-06-21 08:08] LABS: HEMO FLAGS AUTO DIFF
[2016-06-21] MEDS: RESP: ALBUTEROL 2.5 MG/IPRATROPIUM 0.5 MG NEB (SCH) NEB ×4 (08:12→20:00)
[2016-06-21 08:33] LABS: BICARBONATE 36.3 MEQ/L (21.0-32.0); POTASSIUM 3.1 MEQ/L (3.5-5.1)
[2016-06-21] MEDS: VANCOMYCIN INJ 1,250 MG in SODIUM CHLOR 0.9% 250 ML INJ 250 ML IV SCH (08:43)
[2016-06-21] MEDS: LISINOPRIL 20 MG TAB PO SCH (08:43)
[2016-06-21] MEDS: DILTIAZEM-CD 240 MG CAP ER PO SCH (08:43)
[2016-06-21] MEDS: POTASSIUM CHLORIDE 20 MEQ CONTROLLED RELEASE TAB PO SCH ×2 (08:43→20:04)
[2016-06-21] MEDS: BUDESONIDE-FORMOTEROL 160/4.5 MCG INHALER INH SCH ×2 (08:44→20:06)
[2016-06-21] MEDS: FUROSEMIDE 20 MG/2 ML VIAL IV PUSH SCH ×2 (08:44→16:41)
[2016-06-21] MEDS: PANTOPRAZOLE SOD 40 MG DELAYED RELEASE TAB PO SCH (08:44)
[2016-06-21] MEDS: methylPREDNISolone SOD SUCC 40 MG/1 ML VIAL IV SCH (08:45)
[2016-06-21] MEDS: INSULIN DETEMIR 100 UNITS/ML VIAL SQ SCH ×2 (08:45→20:04)
[2016-06-21 09:14] LABS: BANDS 1 % (0-6); CORRECTED NUCLEATED RBC 2 /100 WBC (0-0); MYELOCYTES 1 % (0-0); NEUTROPHIL # MANUAL DIFF 4.6 TH/MM3 (1.8-7.7); POLYS (SEG NEUTROPHILS) 81 % (16-70); WBC DIFF SAMPLE 100
[2016-06-21 09:15] LABS: KERATOCYTES OCC (NORMAL); PLATELET ESTIMATE SMEAR NORMAL (NORMAL); PLATELET MORPHOLOGY NORMAL (NORMAL); SCAN/DIFF FINAL DIFF MANUAL; TARGET CELLS 1+ (NORMAL)
[2016-06-21] MEDS: guaiFENesin/CODEINE SYRUP 200 MG/20 MG/10 ML CUP PO PRN ×3 (10:13→23:51)
--- NOTE | 2016-06-21 10:31 | HHI.PR ---
Subjective Remarks Follow-up shortness of breath. His dyspnea is about the same on 4 L nasal cannula. Complains of 11 episodes of loose stools overnight since starting on heart healthy diet. Denies nausea and abdominal pain. Discussed with RN, hold Lasix if persistent diarrhea. To inform GI that patient has been cleared by pulmonary to undergo endoscopy Objective Vitals Vital Signs Date Time Temp Pulse Resp B/P Pulse Ox O2 Delivery O2 Flow Rate FiO2 06/21/16 08:13 95 Nasal Cannula 4.00 06/21/16 08:09 72 06/21/16 07:20 Nasal Cannula 4.00 06/21/16 07:00 77 06/21/16 06:00 66 06/21/16 05:00 76 06/21/16 04:15 78 06/21/16 04:00 97.9 83 26 159/83 96 06/21/16 04:00 82 06/21/16 03:00 78 06/21/16 02:00 78 06/21/16 01:00 94 06/21/16 00:00 97.9 103 26 160/85 97 06/21/16 00:00 91 06/20/16 23:00 84 06/20/16 22:00 88 06/20/16 21:00 96 06/20/16 20:45 98 06/20/16 20:12 97 Nasal Cannula 4.00 06/20/16 20:00 118 06/20/16 20:00 97.8 102 18 162/87 97 06/20/16 19:00 97 Nasal Cannula 4.00 06/20/16 19:00 110 06/20/16 18:00 96 06/20/16 17:00 106 06/20/16 16:00 96 06/20/16 16:00 98.1 109 20 153/83 93 06/20/16 15:13 98 06/20/16 15:00 100 06/20/16 13:30 98.4 83 16 132/64 93 Nasal Cannula 3 06/20/16 13:15 86 14 133/64 93 06/20/16 13:00 87 12 135/70 97 06/20/16 12:45 110 16 148/69 97 Nasal Cannula 3 06/20/16 12:38 98.4 110 22 133/54 96 Simple Mask 6 06/20/16 12:00 98.1 84 20 159/83 96 06/20/16 12:00 83 06/20/16 11:00 92 I/O 06/20/16 06/20/16 06/20/16 06/21/16 06/21/16 06/21/16 07:00 15:00 23:00 07:00 15:00 23:00 Intake Total 680 ml 150 ml 830 ml 440 ml 240 ml Output Total 200 ml 950 ml 551 ml Balance 480 ml 150 ml -120 ml -111 ml 240 ml Intake Oral 480 ml 480 ml 240 ml 240 ml IV Total 200 ml 350 ml 200 ml Other 150 ml Output Urine Total 200 ml 950 ml 550 ml Stool Total 1 ml # Voids 3 1 # Bowel Movements 1 1 1 Result Diagram: 06/21/16 0606/21/16 0620 Imaging Last Impressions Upper Extremity Ultrasound 06/20/16 0000 Signed Impressions: Service Date/Time: Monday, June 20, 2016 10:13 - CONCLUSION: Negative ultrasound with no evidence of abscess. Beau Croft MD Chest X-Ray 06/20/16 0000 Signed Impressions: Service Date/Time: Monday, June 20, 2016 12:44 - CONCLUSION: 1. Stable appearance with no evidence of pneumothorax. 2. Streaky opacity remains the left lung base with blunting of the costophrenic angle. 3. The known small masses seen on CT are not visualized. Beau Croft MD Barium Swallow X-Ray 06/20/16 0000 Signed Impressions: Service Date/Time: Monday, June 20, 2016 17:17 - CONCLUSION: Unremarkable exam with no evidence of stricture or obstruction. Beau Croft MD Chest CT 06/16/162028 Signed Impressions: Service Date/Time: Thursday, June 16, 2016 21:53 - CONCLUSION: 1. Two 1.3 cm irregular masses in the left lung. The one in the left upper lobe is cavitary. These could be further evaluated with a PET/FDG study to determine if they are metabolically active or not. Neoplastic change cannot be excluded. 2. Small 5 mm nodules seen in the left upper lobe and left lower lobe. These are nonspecific. 3. Minimal left pleural effusion. 4. Atherosclerotic change at the coronary arteries and aorta. Christoph Sandoval MD Elbow X-Ray 06/05/16 0000 Signed Impressions: Service Date/Time: June 17:02 - CONCLUSION: Minimal arthritic findings. Prominent soft tissue swelling of the olecranon process indicating possible olecranon bursitis. Matt Sapp MD Objective Remarks GENERAL: This is a well-nourished, well-developed patient, in no apparent distress on nasal cannula. HEENT: Eyes without signs of infection CARDIOVASCULAR: Regular rate and regular rhythm without murmurs, gallops, or rubs. RESPIRATORY: Decreased breath sounds with no expiratory wheezes GASTROINTESTINAL: Abdomen soft, non-tender, nondistended. Normal, active bowel sounds MUSCULOSKELETAL: Right hand with incised wound on the dorsal surface with no signs of infection- bilateral pedal edema noted. NEURO: Alert & Oriented x4 to person, place, time, situation. Moves all ext x4 Procedures Incision and drainage of right hand abscess Bronchoscopy A/P Problem List: (1) SVT (supraventricular tachycardia) ICD Code: I47.1 Status: Acute (2) Severe sepsis ICD Code: A41.9 Status: Acute (3) COPD with acute exacerbation ICD Code: J44.1 Status: Acute (4) Sepsis ICD Code: A41.9 Status: Acute (5) Cellulitis of right upper extremity ICD Code: L03.113 Status: Acute (6) Abscess of hand, right ICD Code: L02.511 Status: Acute (7) Olecranon bursitis, right elbow ICD Code: M70.21 Status: Acute Assessment and Plan - severe sepsis due to cellulitis of the right upper extremity/ right olecranon bursitis-stable venous doppler of the upper extremities with no DVT-XR of the right elbow with possible olecranon bursitis- US of the right upper extremity with a complex mass overlying the right third finger- s/p I/D of the right nand mass/fluid collection. continue with vancomycin culture positive for MRSA, discontinue Levaquin- keep the right hand elevated- continue pain control- follow the cultures. blood cultures negative- ID/hand surgery and ortho following; recommended conservative treatment of olecranon bursitis. Status post IV vancomycin received 2 week course -HAP. Stable discontinue Zosyn and continue Levaquin for 3 more days. Repeat chest x-ray stable. Culture with normal enio -Pulmonary nodules. Status post bronchoscopy follow-up pending cultures and cytology -SVT- due to sepsis- - dc'ed IV cardizem and continue po cardizem- cardiology consult appreciated. -ischemic cardiomyopathy with mild levation of troponin- s/p stent placement 2001, follow-up angiogram 2 weeks ago no intervention needed per patient; continue aspirin and lisinopril elevated troponin likely due to tachycardia/ sepsis echo with EF 35% cardiology consult appreciated. -acute on chronic systolic CHF- continue IV diuretic and monitor electrolytes. Improving edema. Repeat BMP and magnesium in the morning -COPD exacerbation-improving dyspnea on exertion continue steroids and neb treatment- will monitor. of note the patient is on home oxygen 2 L currently on 4 L -diabetes with hypoglycemic episode ;with no further hypoglycemia. Hyperglycemic secondary to steroids. Adjust Levemir accordingly.- accu-check with SSI. Patient again counseled regarding compliance -anemia of chronic disease- s/p PRBC transfusion with improved H/H- will monitor stool occult blood positive 1. Continue PPI and consulted GI for endoscopy Pulmonary has already cleared patient for endoscopy. Also start aspirin if okay with GI. Patient had transient mild hemoptysis after bronchoscopy -Hypertension. Improving with Lasix and Cardizem. Dry eyes. Eye lubricants. --Diarrhea. Obtain C. difficile and start Lactinex. Monitor electrolytes DVT prophylaxis ; SCD's-no chemical prophylaxis for now due to anemia and Hemoccult-positive stool. -consulted PT/OT Discharge Planning Discharge to [facility] when ready Jamey Ny MD Jun 21, 2016 10:31
[2016-06-21] MEDS ORDERED: POTASSIUM CHLORIDE 20 MEQ CONTROLLED RELEASE TAB PO ONE (11:00)
[2016-06-21] MEDS: LACTOBACILLUS ACIDOPHILUS TAB PO SCH ×2 (12:46→16:39)
--- NOTE | 2016-06-21 14:21 | HHI.PR ---
Addendum to Inpatient Note Additional Information d/w Clinically improved. No cough, fever Elbow and hand improved and completed 2 weeks of IV Vanco Dc Zosyn IV DC Vanco IV Continue Levaquin 3 more days. Will sign off please call back if any change in clinical condition or questions. Roya Velez MD Jun 21, 2016 14:21
[2016-06-21] MEDS: ACETAMINOPHEN/HYDROcodone 325 MG/5 MG TAB PO PRN ×2 (16:40→20:03)
--- NOTE | 2016-06-21 17:41 | MP ---
cc: Liv PINEDO M.D. DATE OF SURGERY 06/20/16 PROCEDURE Fiberoptic bronchoscopy with biopsy brushings, washings. PREOPERATIVE DIAGNOSIS Left lung nodules and pneumonia. POSTOPERATIVE DIAGNOSIS Left lung nodules and pneumonia. ANESTHESIA General SURGEON Dr. Prince Pinedo PROCEDURE AND FINDINGS The patient was sedated with IV Diprivan. LMA was used and placed against the larynx. Local Xylocaine 2%, a total of 6 mL, was used to anesthetize the vocal cords and the trachea. The Olympus IT 180 bronchoscope was used to visualize the bronchi. The scope was advanced via the LMA into the larynx. The vocal cords moved equally. Next, the trachea and aretha were visualized and they were normal. The scope was then advanced into the right mainstem and right upper lobe segmental bronchi. These bronchi demonstrated no gross endobronchial lesions. There were mucoid secretions which were suctioned out. Next, the right middle and lower lobe segmental and subsegmental bronchi were visualized. These bronchi demonstrated no endobronchial lesions. There were a few mucoid secretions. These were suctioned out. Saline washings were done. The scope was then advanced into the left mainstem and left upper lobe segmental bronchi. These bronchi demonstrated mucosal edema with ridging. There was mucosal invagination at the takeoff of the left upper lobe bronchus and moderate endobronchitis at this area. Brushings were done for cytology and micro from the left upper lobe. Biopsies are done from the left upper lobe as well at the area of mucosal abnormality. The scope was then advanced into the left lower lobe segmental bronchi which demonstrated no endobronchial lesions with mucoid secretions and moderate endobronchitis. Saline washings and lavage were done and the procedure was then terminated. The patient tolerated the procedure well. MD SD Odonnell/ /12:35 PM /5:37 PM
--- NOTE | 2016-06-21 18:04 | HHI.PR ---
Subjective Remarks Improved. further . Had some hemoptysis after bronchoscopy Off IV antibiotics. Serena on Bronch washings . Cytology not back yet Objective Vital Signs Date Time Temp Pulse Resp B/P Pulse Ox O2 Delivery O2 Flow Rate FiO2 06/21/16 17:32 20 06/21/16 17:00 94 06/21/16 16:38 98.0 103 20 165/95 97 06/21/16 16:02 103 06/21/16 15:00 109 06/21/16 14:00 114 06/21/16 13:00 92 06/21/16 12:40 98.0 96 20 160/76 96 06/21/16 12:00 96 06/21/16 11:00 87 06/21/16 10:00 86 06/21/16 09:00 90 06/21/16 08:35 97.9 89 20 167/79 95 06/21/16 08:13 95 Nasal Cannula 4.00 06/21/16 08:09 72 06/21/16 07:20 Nasal Cannula 4.00 06/21/16 07:00 77 06/21/16 06:00 66 06/21/16 05:00 76 06/21/16 04:15 78 06/21/16 04:00 97.9 83 26 159/83 96 06/21/16 04:00 82 06/21/16 03:00 78 06/21/16 02:00 78 06/21/16 01:00 94 06/21/16 00:00 97.9 103 26 160/85 97 06/21/16 00:00 91 06/20/16 23:00 84 06/20/16 22:00 88 06/20/16 21:00 96 06/20/16 20:45 98 06/20/16 20:12 97 Nasal Cannula 4.00 06/20/16 20:00 118 06/20/16 20:00 97.8 102 18 162/87 97 06/20/16 19:00 97 Nasal Cannula 4.00 06/20/16 19:00 110 I/O 06/20/16 06/20/16 06/20/16 06/21/16 06/21/16 06/21/16 07:00 15:00 23:00 07:00 15:00 23:00 Intake Total 680 ml 150 ml 830 ml 440 ml 240 ml 1263 ml Output Total 200 ml 950 ml 551 ml 350 ml 450 ml Balance 480 ml 150 ml -120 ml -111 ml -110 ml 813 ml Intake Oral 480 ml 480 ml 240 ml 240 ml 840 ml IV Total 200 ml 350 ml 200 ml 423 ml Other 150 ml Output Urine Total 200 ml 950 ml 550 ml 350 ml 450 ml Stool Total 1 ml # Voids 3 1 # Bowel Movements 1 1 1 3 Result Diagram: 06/21/1661906/21/16619 Objective Remarks This is an elderly averagely built white male who is pale and mildly dyspneic at rest. EXTREMITIES: There is no clubbing. There is 2+ leg edema, erythema of the elbows . HEENT: Head normocephalic. Pupils are reactive and equal. Tongue was moist. Throat was clear. Ears, no inflammation. NECK: Supple. No venous distension. No thyromegaly or lymphadenopathy. CHEST: Decreased breath sounds at the bases with occasional wheezes over both lung saab.There are occ bibasilar crackles. HEART: The heart sounds are regular S1-S2 with no murmur. No S3. ABDOMEN: The abdomen is soft, nontender. No organomegaly. The bowel sounds are active. EXTREMITIES: Edema 1+ with diminished pulses and joint deformities of the extremities. SKIN: Cool, dry. NEUROLOGIC: He is alert and oriented. Moves all extremities.There are no deficits. Assessment and Plan Assessment and Plan IMPRESSION 1. Cellulitis of the right upper extremity resolving. 2. COPD with emphysema and chronic bronchitis 3. Coronary artery disease with stenting 4. Diabetes mellitus 5. History of hypertension. 6. Left Lung nodules Plan : 1. CBC,BMP in am 2. Nebs qid , duoneb. 3. O2 at 2L. 4. Change lasix to 40 mg Po. 5. Add Prednisone 20 mg daily 6. D/C SolumedrLiv Sawyer MD Jun 21, 2016 18:04
[2016-06-21] MEDS: LEVOFLOXACIN 500 MG TAB PO SCH (20:03)
[2016-06-21] MEDS: ZOLPIDEM TARTRATE 5 MG TAB PO PRN (23:51)
[2016-06-22] VITALS (26 sets, daily range): BP systolic 143–157; BP diastolic 68–83; PULSE 81–125; RESP 18–24; TEMP 97.7–98.5; O2SAT 91–94
[2016-06-22 01:50] LABS: C. DIFF EPI 027 PRESUMPTIVE POSITIVE (NEGATIVE)
[2016-06-22 01:52] LABS: C. DIFF TOXIN PCR POSITIVE (NEGATIVE)
[2016-06-22] MEDS: ALPRAZolam 0.25 MG TAB PO PRN (02:16)
[2016-06-22] MEDS: HYPROMELLOSE 0.3 % OPTH GEL 10 GM (0.34 FL OZ) TUBE EACH EYE SCH ×4 (04:00→21:25)
[2016-06-22 06:38] LABS: BICARBONATE 35.8 MEQ/L (21.0-32.0); POTASSIUM 3.6 MEQ/L (3.5-5.1)
[2016-06-22] MEDS: INSULIN ASPART SUPPLEMENTAL SCALE SQ SCH ×4 (07:00→21:00)
[2016-06-22 07:14] LABS: CALCIUM-PROTEIN CORRECTED 8.6 MG/DL (8.5-10.1)
[2016-06-22] MEDS: RESP: ALBUTEROL 2.5 MG/IPRATROPIUM 0.5 MG NEB (SCH) NEB ×4 (07:33→20:26)
[2016-06-22] MEDS: BUDESONIDE-FORMOTEROL 160/4.5 MCG INHALER INH SCH ×2 (09:40→21:26)
[2016-06-22] MEDS: INSULIN DETEMIR 100 UNITS/ML VIAL SQ SCH ×2 (09:40→21:00)
--- NOTE | 2016-06-22 09:40 | HHI.PR ---
Subjective Remarks Follow-up dyspnea. He is improving currently on 3 mL liters. Also no further loose stools since last night. Positive for C. difficile started on Flagyl. Discussed with GI for endoscopy in the morning. Objective Vitals Vital Signs Date Time Temp Pulse Resp B/P Pulse Ox O2 Delivery O2 Flow Rate FiO2 06/22/16 06:00 86 06/22/16 05:00 90 06/22/16 04:00 97.7 93 20 153/81 93 06/22/16 04:00 106 06/22/16 03:00 81 06/22/16 02:00 82 06/22/16 01:00 88 06/22/16 00:00 96 06/22/16 00:00 97.9 101 22 155/83 91 06/21/16 23:00 97 06/21/16 22:00 118 06/21/16 21:00 92 06/21/16 20:00 97.9 96 22 171/84 92 06/21/16 19:00 92 Nasal Cannula 4.00 06/21/16 19:00 92 06/21/16 18:14 93 06/21/16 17:32 20 06/21/16 17:00 94 06/21/16 16:38 98.0 103 20 165/95 97 06/21/16 16:02 103 06/21/16 15:00 109 06/21/16 14:00 114 06/21/16 13:00 92 06/21/16 12:40 98.0 96 20 160/76 96 06/21/16 12:00 96 06/21/16 11:00 87 06/21/16 10:00 86 I/O 06/21/16 06/21/16 06/21/16 06/22/16 06/22/16 06/22/16 07:00 15:00 23:00 07:00 15:00 23:00 Intake Total 440 ml 240 ml 1263 ml 480 ml Output Total 551 ml 350 ml 450 ml 1000 ml Balance -111 ml -110 ml 813 ml -520 ml Intake Oral 240 ml 240 ml 840 ml 480 ml IV Total 200 ml 423 ml Output Urine Total 550 ml 350 ml 450 ml 1000 ml Stool Total 1 ml # Voids 1 # Bowel Movements 1 3 Result Diagram: 2/18/17 0620 2/19/17 0522 Objective Remarks GENERAL: This is a well-nourished, well-developed patient, in no apparent distress on nasal cannula. No signs of dehydration HEENT: Eyes without signs of infection CARDIOVASCULAR: Regular rate and regular rhythm without murmurs, gallops, or rubs. RESPIRATORY: Decreased breath sounds with no expiratory wheezes GASTROINTESTINAL: Abdomen soft, non-tender, nondistended. Normal, active bowel sounds MUSCULOSKELETAL: Right hand with incised wound on the dorsal surface with no signs of infection- bilateral pedal edema improving. NEURO: Alert & Oriented x4 to person, place, time, situation. Moves all ext x4 Procedures Incision and drainage of right hand abscess Bronchoscopy A/P Problem List: (1) SVT (supraventricular tachycardia) ICD Code: I47.1 Status: Acute (2) Severe sepsis ICD Code: A41.9 Status: Acute (3) COPD with acute exacerbation ICD Code: J44.1 Status: Acute (4) Sepsis ICD Code: A41.9 Status: Acute (5) Cellulitis of right upper extremity ICD Code: L03.113 Status: Acute (6) Abscess of hand, right ICD Code: L02.511 Status: Acute (7) Olecranon bursitis, right elbow ICD Code: M70.21 Status: Acute Assessment and Plan - severe sepsis due to cellulitis of the right upper extremity/ right olecranon bursitis-stable venous doppler of the upper extremities with no DVT-XR of the right elbow with possible olecranon bursitis- US of the right upper extremity with a complex mass overlying the right third finger- s/p I/D of the right nand mass/fluid collection. continue with vancomycin culture positive for MRSA, discontinue Levaquin- keep the right hand elevated- continue pain control- follow the cultures. blood cultures negative- ID/hand surgery and ortho following; recommended conservative treatment of olecranon bursitis. Status post IV vancomycin received 2 week course -HAP. Stable discontinue Zosyn and continue Levaquin for 2 more days. Repeat chest x-ray stable. Culture with yeast, start Diflucan -Pulmonary nodules. Status post bronchoscopy follow-up pending cultures and cytology. Repeat CT in 2 months -SVT- due to sepsis- - dc'ed IV cardizem and continue po cardizem- cardiology consult appreciated. -ischemic cardiomyopathy with mild levation of troponin- s/p stent placement 2001, follow-up angiogram 2 weeks ago no intervention needed per patient; continue aspirin and lisinopril elevated troponin likely due to tachycardia/ sepsis echo with EF 35% cardiology consult appreciated. -acute on chronic systolic CHF- continue Lasix and monitor electrolytes. Improving edema. Repeat BMP and magnesium in the morning -COPD exacerbation-improving dyspnea on exertion continue steroids and neb treatment- will monitor. of note the patient is on home oxygen 2 L currently on 4 L -diabetes with hypoglycemic episode ;with no further hypoglycemia. Hyperglycemic secondary to steroids and noncompliance. Adjust Levemir accordingly.- accu-check with SSI. Patient again counseled regarding compliance -anemia of chronic disease- s/p PRBC transfusion with improved H/H- will monitor stool occult blood positive 1. Continue PPI and consulted GI for endoscopy tomorrow Pulmonary has already cleared patient for endoscopy. Also start aspirin if okay with GI. Patient had transient mild hemoptysis after bronchoscopy -Hypertension. Improving with Lasix and Cardizem. Dry eyes. Eye lubricants. --C. difficile colitis. Continue Lactinex and start Flagyl. Monitor electrolytes DVT prophylaxis ; SCD's-no chemical prophylaxis for now due to anemia and Hemoccult-positive stool. -consulted PT/OT Discharge Planning Discharge to [facility] when ready Anant,Jamey Brown MD Jun 22, 2016 09:40
[2016-06-22] MEDS: POTASSIUM CHLORIDE 20 MEQ CONTROLLED RELEASE TAB PO SCH ×2 (09:41→21:23)
[2016-06-22] MEDS: DILTIAZEM-CD 240 MG CAP ER PO SCH (09:41)
[2016-06-22] MEDS: predniSONE 20 MG TAB PO SCH (09:41)
[2016-06-22] MEDS: PANTOPRAZOLE SOD 40 MG DELAYED RELEASE TAB PO SCH (09:41)
[2016-06-22] MEDS: LISINOPRIL 20 MG TAB PO SCH (09:41)
[2016-06-22] MEDS: LACTOBACILLUS ACIDOPHILUS TAB PO SCH ×3 (09:41→17:39)
[2016-06-22] MEDS: FUROSEMIDE 40 MG TAB PO SCH (09:41)
--- NOTE | 2016-06-22 10:45 | HHI.GIFU ---
Subjective Remarks Resting in bed. Breathing improved. States he has not been having any issues with his swallowing the past few days. Still does not want colonoscopy, although he is agreeable for EGD +/- Dilatation (Joseline Polanco) Objective Vitals I&O Vital Signs Date Time Temp Pulse Resp B/P Pulse Ox O2 Delivery O2 Flow Rate FiO2 06/22/16 10:10 93 Nasal Cannula 3.00 06/22/16 06:00 86 06/22/16 05:00 90 06/22/16 04:00 97.7 93 20 153/81 93 06/22/16 04:00 106 06/22/16 03:00 81 06/22/16 02:00 82 06/22/16 01:00 88 06/22/16 00:00 96 06/22/16 00:00 97.9 101 22 155/83 91 06/21/16 23:00 97 06/21/16 22:00 118 06/21/16 21:00 92 06/21/16 20:00 97.9 96 22 171/84 92 06/21/16 19:00 92 Nasal Cannula 4.00 06/21/16 19:00 92 06/21/16 18:14 93 06/21/16 17:32 20 06/21/16 17:00 94 06/21/16 16:38 98.0 103 20 165/95 97 06/21/16 16:02 103 06/21/16 15:00 109 06/21/16 14:00 114 06/21/16 13:00 92 06/21/16 12:40 98.0 96 20 160/76 96 06/21/16 12:00 96 06/21/16 11:00 87 I/O 06/21/16 06/21/16 06/21/16 06/22/16 06/22/16 06/22/16 07:00 15:00 23:00 07:00 15:00 23:00 Intake Total 440 ml 240 ml 1263 ml 480 ml Output Total 551 ml 350 ml 450 ml 1000 ml Balance -111 ml -110 ml 813 ml -520 ml Intake Oral 240 ml 240 ml 840 ml 480 ml IV Total 200 ml 423 ml Output Urine Total 550 ml 350 ml 450 ml 1000 ml Stool Total 1 ml # Voids 1 # Bowel Movements 1 3 Laboratory Laboratory Tests Test 06/21/16 06/22/16 16:45 05:22 Stool C. difficile Toxin (PCR) POSITIVE Stl C. difficile Toxin PRESUMPTIVE Epiderm 027 POSITIVE Sodium Level 144 Potassium Level 3.6 Chloride Level 103 Carbon Dioxide Level 35.8 Anion Gap 5 Blood Urea Nitrogen 34 Creatinine 1.09 Estimat Glomerular Filtration 66 Rate Random Glucose 175 Calcium Level 7.4 Protein Corrected Calcium 8.6 Magnesium Level 2.0 Total Protein 4.9 Date/Time Procedure Status Source Growth 06/20/16 12:12 Gram Stain - Final Resulted Bronchial Washings Other 06/20/16 12:12 Bronchial Culture - Preliminary Resulted Bronchial Washings Other HEAVY GROWTH NORMAL RESPIRATORY BRITTANIE... 06/20/16 12:12 Fungal Smear - Final Resulted Bronchial Washings Other MANY BUDDING YEAST WITH PSEUDOHYPHAE 06/20/16 12:12 Fungal Culture Resulted Bronchial Washings Other Pending 06/20/16 12:12 Bronchial Aspirate Culture - Preliminary Resulted Bronchial Brushings Left Upper Lobe NO GROWTH IN 24 HOURS. 06/20/16 12:12 Acid Fast Stain Received Bronchial Washings Other Pending 06/20/16 12:12 Mycobacterial Culture Received Bronchial Washings Other Pending Imaging Last Impressions Upper Extremity Ultrasound 06/20/16 0000 Signed Impressions: Service Date/Time: Monday, June 20, 2016 10:13 - CONCLUSION: Negative ultrasound with no evidence of abscess. Beau Croft MD Chest X-Ray 06/20/16 0000 Signed Impressions: Service Date/Time: Monday, June 20, 2016 12:44 - CONCLUSION: 1. Stable appearance with no evidence of pneumothorax. 2. Streaky opacity remains the left lung base with blunting of the costophrenic angle. 3. The known small masses seen on CT are not visualized. Beau Croft MD Barium Swallow X-Ray 06/20/16 0000 Signed Impressions: Service Date/Time: Monday, June 20, 2016 17:17 - CONCLUSION: Unremarkable exam with no evidence of stricture or obstruction. Beau Croft MD Chest CT 06/16/162028 Signed Impressions: Service Date/Time: Thursday, June 16, 2016 21:53 - CONCLUSION: 1. Two 1.3 cm irregular masses in the left lung. The one in the left upper lobe is cavitary. These could be further evaluated with a PET/FDG study to determine if they are metabolically active or not. Neoplastic change cannot be excluded. 2. Small 5 mm nodules seen in the left upper lobe and left lower lobe. These are nonspecific. 3. Minimal left pleural effusion. 4. Atherosclerotic change at the coronary arteries and aorta. Christpoh Sandoval MD Elbow X-Ray 06/05/16 0000 Signed Impressions: Service Date/Time: June 17:02 - CONCLUSION: Minimal arthritic findings. Prominent soft tissue swelling of the olecranon process indicating possible olecranon bursitis. Matt Sapp MD Physical Exam HEENT: Normocephalic; atraumatic; no jaundice. CHEST: Resp even, mildly labored, diminished breath sounds, sob on exertion. O2 3L CARDIAC: RRR ABDOMEN: Soft, nondistended, nontender; no hepatosplenomegaly; bowel sounds are present in all four quadrants. EXTREMITIES: No clubbing, cyanosis, or edema. 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 (Joseline PolancoP) Assessment and Plan Plan ASSESSMENT: - Anemia, Hemoccult (+) Stools. 9.3/27.8. Pt is absolutely refusing colonoscopy, but would like to have the EGD done. His respiratory status is improved from last week. On O2 3L via n/c (baseline 2), diminished breath sounds, sob with exertion. EGD +/- Dilatation in am, refusing colonoscopy. - Reflux, coughing up food particles. States he has no issues swallowing but when he lays down he will later cough up food particles such as corn or beans. He has had EGD with dilatations in the past but cannot tell me if he has an esophageal diverticulum. Barium Swallow X-Ray (06/20/16)-----> Unremarkable exam with no evidence of stricture or obstruction. PPI - COPD/Patchy bibasilar infiltrates on cxr. CT thorax with 1. Two 1.3 cm irregular masses in the left lung. The one in the left upper lobe is cavitary. These could be further evaluated with a PET/FDG study to determine if they are metabolically active or not. Neoplastic change cannot be excluded. 2. Small 5 mm nodules seen in the left upper lobe and left lower lobe. These are nonspecific. 3. Minimal left pleural effusion. 4. Atherosclerotic change at the coronary arteries and aorta. Nebs. S/P Bronchoscopy with biopsy last Thursday. Abx. - Sepsis due to cellulitis of the rue, right olecranon bursitis. Vancomycin PLAN: - Plan for EGD +/- Dilatation in am - Obtain consents - NPO after MN - PPI - Monitor hh - Transfuse as necessary - Supportive care - Refusing colonoscopy - Further recommendations to follow based on results of above - Pt seen and examined by Dr. Chiu and myself and this note is written on her behalf (Joseline Polanco) Physician Comments seen, examined agree with above (Orquidea Chiu MD) Joseline Polanco Jun 22, 2016 10:45 Orquidea Chiu MD Jun 22, 2016 12:32
[2016-06-22] MEDS: guaiFENesin/CODEINE SYRUP 200 MG/20 MG/10 ML CUP PO PRN ×2 (11:44→23:37)
[2016-06-22] MEDS: FLUCONAZOLE 200 MG TAB PO SCH (11:44)
[2016-06-22] MEDS: metroNIDAZOLE 500 MG TAB PO SCH ×2 (12:46→21:24)
--- NOTE | 2016-06-22 14:10 | HHI.PR ---
Subjective Remarks Improved. but not happy today.. Had some hemoptysis last week but better now. Off IV antibiotics. Serena on Bronch washings . Cytology not back yet Objective Vital Signs Date Time Temp Pulse Resp B/P Pulse Ox O2 Delivery O2 Flow Rate FiO2 06/22/16 13:00 98 06/22/16 12:00 97.9 104 20 156/81 92 06/22/16 12:00 106 06/22/16 11:00 112 06/22/16 10:10 93 Nasal Cannula 3.00 06/22/16 10:00 120 06/22/16 09:00 112 06/22/16 08:00 98.5 125 18 147/78 91 06/22/16 08:00 90 06/22/16 08:00 91 Nasal Cannula 4.00 06/22/16 07:00 85 06/22/16 06:00 86 06/22/16 05:00 90 06/22/16 04:00 97.7 93 20 153/81 93 06/22/16 04:00 106 06/22/16 03:00 81 06/22/16 02:00 82 06/22/16 01:00 88 06/22/16 00:00 96 06/22/16 00:00 97.9 101 22 155/83 91 06/21/16 23:00 97 06/21/16 22:00 118 06/21/16 21:00 92 06/21/16 20:00 97.9 96 22 171/84 92 06/21/16 19:00 92 Nasal Cannula 4.00 06/21/16 19:00 92 06/21/16 18:14 93 06/21/16 17:32 20 06/21/16 17:00 94 06/21/16 16:38 98.0 103 20 165/95 97 06/21/16 16:02 103 06/21/16 15:00 109 I/O 06/21/16 06/21/16 06/21/16 06/22/16 06/22/16 06/22/16 07:00 15:00 23:00 07:00 15:00 23:00 Intake Total 440 ml 240 ml 1263 ml 480 ml Output Total 551 ml 350 ml 450 ml 1000 ml Balance -111 ml -110 ml 813 ml -520 ml Intake Oral 240 ml 240 ml 840 ml 480 ml IV Total 200 ml 423 ml Output Urine Total 550 ml 350 ml 450 ml 1000 ml Stool Total 1 ml # Voids 1 # Bowel Movements 1 3 Result Diagram: 06/21/1661906/22/16 0522 Objective Remarks This is an elderly averagely built white male who is pale and mildly dyspneic at rest. EXTREMITIES: There is no clubbing. There is 1+ leg edema, erythema of the elbows . HEENT: Head normocephalic. Pupils are reactive and equal. Tongue was moist. Throat was clear. Ears, no inflammation. NECK: Supple. No venous distension. No thyromegaly or lymphadenopathy. CHEST: Decreased breath sounds at the bases with wheezes over both lung saab.There are occ bibasilar crackles. HEART: The heart sounds are regular S1-S2 with no murmur. No S3. ABDOMEN: The abdomen is soft, nontender. No organomegaly. The bowel sounds are active. EXTREMITIES: Edema 1+ with diminished pulses and joint deformities of the extremities. SKIN: Cool, dry. NEUROLOGIC: He is alert and oriented. Moves all extremities.There are no deficits. Assessment and Plan Assessment and Plan IMPRESSION 1. Cellulitis of the right upper extremity resolving. 2. COPD with emphysema and chronic bronchitis 3. Coronary artery disease with stenting 4. Diabetes mellitus 5. History of hypertension. 6. Left Lung nodules Plan : 1. PT evaluation 2. Nebs qid , duoneb. 3. O2 at 2L. 4. Continue lasix 40 mg Po daily. 5. Prednisone 20 mg daily 6. To rehab soon. 7. CT chest in 2 mths. Liv Pinedo MD Jun 22, 2016 14:10
[2016-06-22] MEDS: ACETAMINOPHEN/HYDROcodone 325 MG/5 MG TAB PO PRN ×2 (16:19→21:24)
[2016-06-22] MEDS: LEVOFLOXACIN 500 MG TAB PO SCH (21:26)
[2016-06-22] MEDS: ZOLPIDEM TARTRATE 5 MG TAB PO PRN (23:38)
[2016-06-23] VITALS (32 sets, daily range): BP systolic 127–167; BP diastolic 62–90; PULSE 74–119; RESP 20–26; TEMP 97.8–98.9; O2SAT 92–97
[2016-06-23] MEDS: ALPRAZolam 0.25 MG TAB PO PRN (01:45)
[2016-06-23] MEDS ORDERED: AMIODARONE INJ 150 MG in DEXTROSE 5% IN WATER 100ML INJ 97 ML IV ONE ×2 (03:45)
[2016-06-23] MEDS ORDERED: AMIODARONE 200 MG TAB PO ONE (03:45)
[2016-06-23] MEDS ORDERED: AMIODARONE INJ 450 MG in DEXTROSE 5% IN WATE(EXCEL) INJ 250 ML IV SCH ×2 (03:45)
[2016-06-23] MEDS: HYPROMELLOSE 0.3 % OPTH GEL 10 GM (0.34 FL OZ) TUBE EACH EYE SCH ×4 (04:00→21:29)
[2016-06-23 04:29] LABS: MAGNESIUM 2.1 MG/DL (1.5-2.5); POTASSIUM 4.3 MEQ/L (3.5-5.1)
[2016-06-23] MEDS: metroNIDAZOLE 500 MG TAB PO SCH ×3 (06:00→21:28)
[2016-06-23] MEDS: INSULIN ASPART SUPPLEMENTAL SCALE SQ SCH ×4 (07:00→21:00)
[2016-06-23] MEDS: RESP: ALBUTEROL 2.5 MG/IPRATROPIUM 0.5 MG NEB (SCH) NEB ×4 (08:07→20:00)
[2016-06-23] MEDS: LISINOPRIL 20 MG TAB PO SCH (08:41)
[2016-06-23] MEDS: DILTIAZEM-CD 240 MG CAP ER PO SCH (08:41)
[2016-06-23] MEDS: LACTOBACILLUS ACIDOPHILUS TAB PO SCH ×3 (08:41→18:06)
[2016-06-23] MEDS: POTASSIUM CHLORIDE 20 MEQ CONTROLLED RELEASE TAB PO SCH (08:41)
[2016-06-23] MEDS: FLUCONAZOLE 200 MG TAB PO SCH (08:42)
[2016-06-23] MEDS: predniSONE 20 MG TAB PO SCH (08:42)
[2016-06-23] MEDS: PANTOPRAZOLE SOD 40 MG DELAYED RELEASE TAB PO SCH (08:42)
[2016-06-23] MEDS: FUROSEMIDE 40 MG TAB PO SCH (08:42)
[2016-06-23] MEDS: POTASSIUM PHOSPHATE MONOBASIC 500 MG TAB PO SCH ×2 (08:42→21:29)
[2016-06-23] MEDS: ACETAMINOPHEN/HYDROcodone 325 MG/5 MG TAB PO PRN ×2 (08:43→21:28)
[2016-06-23] MEDS: BUDESONIDE-FORMOTEROL 160/4.5 MCG INHALER INH SCH ×2 (08:43→21:29)
[2016-06-23] MEDS: INSULIN DETEMIR 100 UNITS/ML VIAL SQ SCH ×2 (08:44→21:00)
[2016-06-23] MEDS ORDERED: AMIODARONE 200 MG TAB PO SCH (09:00)
[2016-06-23] MEDS: guaiFENesin/CODEINE SYRUP 200 MG/20 MG/10 ML CUP PO PRN ×3 (11:05→21:28)
--- NOTE | 2016-06-23 11:09 | HHI.PR ---
Subjective Remarks Follow-up ischemic cardiomyopathy. NSVT last night started on amiodarone drip. Still complains of dyspnea on exertion on 4 L. Dw RN Objective Vitals Vital Signs Date Time Temp Pulse Resp B/P Pulse Ox O2 Delivery O2 Flow Rate FiO2 06/23/16 10:30 85 06/23/16 10:25 18 06/23/16 09:53 89 06/23/16 08:35 97 Nasal Cannula 4.00 06/23/16 08:35 85 06/23/16 08:35 98.7 101 22 136/81 97 06/23/16 08:08 94 Nasal Cannula 4.00 06/23/16 06:30 138/67 06/23/16 06:15 135/66 06/23/16 06:00 74 06/23/16 06:00 74 130/66 06/23/16 05:45 136/73 06/23/16 05:30 139/71 06/23/16 05:15 137/69 06/23/16 05:00 76 135/68 06/23/16 05:00 76 06/23/16 04:45 136/68 06/23/16 04:30 131/67 06/23/16 04:20 97.8 80 24 136/70 97 06/23/16 04:00 75 06/23/16 03:00 76 06/23/16 02:00 78 06/23/16 01:00 78 06/23/16 00:00 98.4 109 24 167/90 94 06/23/16 00:00 90 06/22/16 23:00 106 06/22/16 22:00 92 06/22/16 21:00 106 06/22/16 20:00 98.5 91 24 157/73 94 06/22/16 20:00 109 06/22/16 19:00 94 06/22/16 19:00 94 Nasal Cannula 4.00 06/22/16 18:09 109 06/22/16 17:00 92 06/22/16 16:00 98.3 103 20 143/68 93 06/22/16 16:00 110 06/22/16 15:31 94 Nasal Cannula 3.00 06/22/16 15:00 89 06/22/16 14:17 115 06/22/16 13:00 98 06/22/16 12:00 97.9 104 20 156/81 92 06/22/16 12:00 106 06/22/16 11:00 112 I/O 06/22/16 06/22/16 06/22/16 06/23/16 06/23/16 06/23/16 07:00 15:00 23:00 07:00 15:00 23:00 Intake Total 480 ml 480 ml 1113 ml Output Total 1000 ml 1100 ml 525 ml Balance -520 ml -620 ml 588 ml Intake Oral 480 ml 480 ml 480 ml IV Total 633 ml Output Urine Total 1000 ml 1100 ml 525 ml # Bowel Movements 1 Result Diagram: 06/21/16 0620 06/23/16 0356 Imaging Last Impressions Upper Extremity Ultrasound 06/20/16 0000 Signed Impressions: Service Date/Time: Monday, June 20, 2016 10:13 - CONCLUSION: Negative ultrasound with no evidence of abscess. Beau Croft MD Chest X-Ray 06/20/16 0000 Signed Impressions: Service Date/Time: Monday, June 20, 2016 12:44 - CONCLUSION: 1. Stable appearance with no evidence of pneumothorax. 2. Streaky opacity remains the left lung base with blunting of the costophrenic angle. 3. The known small masses seen on CT are not visualized. Beau Croft MD Barium Swallow X-Ray 06/20/16 0000 Signed Impressions: Service Date/Time: Monday, June 20, 2016 17:17 - CONCLUSION: Unremarkable exam with no evidence of stricture or obstruction. Beau Croft MD Chest CT 06/16/162028 Signed Impressions: Service Date/Time: Thursday, June 16, 2016 21:53 - CONCLUSION: 1. Two 1.3 cm irregular masses in the left lung. The one in the left upper lobe is cavitary. These could be further evaluated with a PET/FDG study to determine if they are metabolically active or not. Neoplastic change cannot be excluded. 2. Small 5 mm nodules seen in the left upper lobe and left lower lobe. These are nonspecific. 3. Minimal left pleural effusion. 4. Atherosclerotic change at the coronary arteries and aorta. Christoph Sandoval MD Elbow X-Ray 06/05/16 0000 Signed Impressions: Service Date/Time: June 17:02 - CONCLUSION: Minimal arthritic findings. Prominent soft tissue swelling of the olecranon process indicating possible olecranon bursitis. Matt Sapp MD Objective Remarks GENERAL: This is a well-nourished, well-developed patient, in no apparent distress on nasal cannula. No signs of dehydration HEENT: Eyes without signs of infection CARDIOVASCULAR: Regular rate and regular rhythm without murmurs, gallops, or rubs. RESPIRATORY: Decreased breath sounds with no expiratory wheezes GASTROINTESTINAL: Abdomen soft, non-tender, nondistended. Normal, active bowel sounds MUSCULOSKELETAL: Right hand with incised wound on the dorsal surface with no signs of infection- bilateral pedal edema improving. NEURO: Alert & Oriented x4 to person, place, time, situation. Moves all ext x4 Procedures Incision and drainage of right hand abscess Bronchoscopy A/P Problem List: (1) SVT (supraventricular tachycardia) ICD Code: I47.1 Status: Acute (2) Severe sepsis ICD Code: A41.9 Status: Acute (3) COPD with acute exacerbation ICD Code: J44.1 Status: Acute (4) Sepsis ICD Code: A41.9 Status: Acute (5) Cellulitis of right upper extremity ICD Code: L03.113 Status: Acute (6) Abscess of hand, right ICD Code: L02.511 Status: Acute (7) Olecranon bursitis, right elbow ICD Code: M70.21 Status: Acute Assessment and Plan - severe sepsis due to cellulitis of the right upper extremity/ right olecranon bursitis-stable venous doppler of the upper extremities with no DVT-XR of the right elbow with possible olecranon bursitis- US of the right upper extremity with a complex mass overlying the right third finger- s/p I/D of the right nand mass/fluid collection. S/p vancomycin culture positive for MRSA- keep the right hand elevated- continue pain control ID/hand surgery and ortho following; recommended conservative treatment of olecranon bursitis. -HAP. Stable discontinue Zosyn and continue Levaquin for 1 more day. Repeat chest x-ray stable. Culture with yeast, start Diflucan will dw ID -Pulmonary nodules. Status post bronchoscopy follow-up pending cultures and cytology. Repeat CT in 2 months -SVT- due to sepsis- - dc'ed IV cardizem and continue po cardizem- cardiology consult appreciated. -ischemic cardiomyopathy with mild levation of troponin- s/p stent placement 2001, follow-up angiogram 2 weeks ago no intervention needed per patient; continue aspirin and lisinopril elevated troponin likely due to tachycardia/ sepsis. Restart asa echo with EF 35% BB not given due to COPD cardiology consulted 2/ VT may need AICD -acute on chronic systolic CHF- continue Lasix and monitor electrolytes. Improving edema. Repeat BMP and magnesium in the morning -COPD exacerbation-improving dyspnea on exertion continue steroids and neb treatment- will monitor. of note the patient is on home oxygen 2 L currently on 4 L -diabetes with hypoglycemic episode ;with no further hypoglycemia. Hyperglycemic secondary to steroids and noncompliance. Adjust Levemir accordingly.- accu-check with SSI. Patient again counseled regarding compliance -anemia of chronic disease- s/p PRBC transfusion with improved H/H- will monitor stool occult blood positive 1. Continue PPI and consulted GI for endoscopy tomorrow Pulmonary has already cleared patient for endoscopy. -Hypertension. Improving with Lasix and Cardizem. Dry eyes. Eye lubricants. --C. difficile colitis. Improving no diarrhea Continue Lactinex and Flagyl. Monitor electrolytes DVT prophylaxis ; SCD's-no chemical prophylaxis for now due to anemia and Hemoccult-positive stool. -consulted PT/OT Discharge Planning Not ready for dc Jamey Ny MD Jun 23, 2016 11:09
--- NOTE | 2016-06-23 11:26 | HHI.GIFU ---
Subjective Remarks EGD cancelled secondary to nonsustained run of vtach. Cardiology evaluation pending. Pt denies any issues swallowing at this time. No n/v. Objective Vitals I&O Vital Signs Date Time Temp Pulse Resp B/P Pulse Ox O2 Delivery O2 Flow Rate FiO2 06/23/16 11:10 112 06/23/16 10:30 85 06/23/16 10:25 18 06/23/16 09:53 89 06/23/16 08:35 97 Nasal Cannula 4.00 06/23/16 08:35 85 06/23/16 08:35 98.7 101 22 136/81 97 06/23/16 08:08 94 Nasal Cannula 4.00 06/23/16 06:30 138/67 06/23/16 06:15 135/66 06/23/16 06:00 74 06/23/16 06:00 74 130/66 06/23/16 05:45 136/73 06/23/16 05:30 139/71 06/23/16 05:15 137/69 06/23/16 05:00 76 135/68 06/23/16 05:00 76 06/23/16 04:45 136/68 06/23/16 04:30 131/67 06/23/16 04:20 97.8 80 24 136/70 97 06/23/16 04:00 75 06/23/16 03:00 76 06/23/16 02:00 78 06/23/16 01:00 78 06/23/16 00:00 98.4 109 24 167/90 94 06/23/16 00:00 90 06/22/16 23:00 106 06/22/16 22:00 92 06/22/16 21:00 106 06/22/16 20:00 98.5 91 24 157/73 94 06/22/16 20:00 109 06/22/16 19:00 94 06/22/16 19:00 94 Nasal Cannula 4.00 06/22/16 18:09 109 06/22/16 17:00 92 06/22/16 16:00 98.3 103 20 143/68 93 06/22/16 16:00 110 06/22/16 15:31 94 Nasal Cannula 3.00 06/22/16 15:00 89 06/22/16 14:17 115 06/22/16 13:00 98 06/22/16 12:00 97.9 104 20 156/81 92 06/22/16 12:00 106 I/O 06/22/16 06/22/16 06/22/16 06/23/16 06/23/16 06/23/16 07:00 15:00 23:00 07:00 15:00 23:00 Intake Total 480 ml 480 ml 1113 ml Output Total 1000 ml 1100 ml 525 ml Balance -520 ml -620 ml 588 ml Intake Oral 480 ml 480 ml 480 ml IV Total 633 ml Output Urine Total 1000 ml 1100 ml 525 ml # Bowel Movements 1 Laboratory Laboratory Tests Test 06/23/16 03:56 Sodium Level 145 Potassium Level 4.3 Chloride Level 107 Carbon Dioxide Level 35.0 Anion Gap 3 Blood Urea Nitrogen 36 Creatinine 0.90 Estimat Glomerular Filtration 82 Rate Random Glucose 183 Calcium Level 7.5 Phosphorus Level 2.3 Magnesium Level 2.1 Thyroid Stimulating Hormone 0.241 3rd Gen Date/Time Procedure Status Source Growth 06/20/16 12:12 Gram Stain - Final Complete Bronchial Washings Other 06/20/16 12:12 Bronchial Culture - Final Complete Bronchial Washings Other HEAVY GROWTH NORMAL RESPIRATORY BRITTANIE 06/20/16 12:12 Fungal Smear - Final Resulted Bronchial Washings Other MANY BUDDING YEAST WITH PSEUDOHYPHAE 06/20/16 12:12 Fungal Culture Resulted Bronchial Washings Other Pending 06/20/16 12:12 Bronchial Aspirate Culture - Final Complete Bronchial Brushings Left Upper Lobe NO GROWTH IN 48 HOURS. 06/20/16 12:12 Acid Fast Stain - Final Resulted Bronchial Washings Other NO ACID FAST BACILLI SEEN 06/20/16 12:12 Mycobacterial Culture Resulted Bronchial Washings Other Pending Imaging Last Impressions Upper Extremity Ultrasound 06/20/16 0000 Signed Impressions: Service Date/Time: Monday, June 20, 2016 10:13 - CONCLUSION: Negative ultrasound with no evidence of abscess. Beau Croft MD Chest X-Ray 06/20/16 0000 Signed Impressions: Service Date/Time: Monday, June 20, 2016 12:44 - CONCLUSION: 1. Stable appearance with no evidence of pneumothorax. 2. Streaky opacity remains the left lung base with blunting of the costophrenic angle. 3. The known small masses seen on CT are not visualized. Beau Croft MD Barium Swallow X-Ray 2/17/17 0000 Signed Impressions: Service Date/Time: Monday, June 20, 2016 17:17 - CONCLUSION: Unremarkable exam with no evidence of stricture or obstruction. Beau Croft MD Chest CT 06/16/162028 Signed Impressions: Service Date/Time: Thursday, June 16, 2016 21:53 - CONCLUSION: 1. Two 1.3 cm irregular masses in the left lung. The one in the left upper lobe is cavitary. These could be further evaluated with a PET/FDG study to determine if they are metabolically active or not. Neoplastic change cannot be excluded. 2. Small 5 mm nodules seen in the left upper lobe and left lower lobe. These are nonspecific. 3. Minimal left pleural effusion. 4. Atherosclerotic change at the coronary arteries and aorta. Christoph Sandoval MD Elbow X-Ray 06/05/16 0000 Signed Impressions: Service Date/Time: June 17:02 - CONCLUSION: Minimal arthritic findings. Prominent soft tissue swelling of the olecranon process indicating possible olecranon bursitis. Matt Sapp MD Physical Exam HEENT: Normocephalic; atraumatic; no jaundice. CHEST: Resp even, non labored, diminished breath sounds, sob on exertion. O2 3L CARDIAC: RRR ABDOMEN: Soft, nondistended, nontender; no hepatosplenomegaly; bowel sounds are present in all four quadrants. EXTREMITIES: No clubbing, cyanosis, or edema. SKIN: Multiple ecchymotic areas UPPER LINING CEMENTER: No focal deficits; alert and oriented times three. Assessment and Plan Plan ASSESSMENT: - Anemia, Hemoccult (+) Stools. 9.3/27.8. Pt is absolutely refusing colonoscopy, but would like to have the EGD done. His respiratory status is improved from last week. On O2 3L via n/c (baseline 2), diminished breath sounds, sob with exertion. EGD +/- Dilatation cancelled secondary to run of [facility], cardiology evaluation pending. Will plan for egd +/- dilatation once cleared by cardiology (refusing colonoscopy). - Reflux, coughing up food particles. States he has no issues swallowing but when he lays down he will later cough up food particles such as corn or beans. He has had EGD with dilatations in the past but cannot tell me if he has an esophageal diverticulum. Barium Swallow X-Ray (06/20/16)-----> Unremarkable exam with no evidence of stricture or obstruction. PPI - COPD/Patchy bibasilar infiltrates on cxr. CT thorax with 1. Two 1.3 cm irregular masses in the left lung. The one in the left upper lobe is cavitary. These could be further evaluated with a PET/FDG study to determine if they are metabolically active or not. Neoplastic change cannot be excluded. 2. Small 5 mm nodules seen in the left upper lobe and left lower lobe. These are nonspecific. 3. Minimal left pleural effusion. 4. Atherosclerotic change at the coronary arteries and aorta. Nebs. S/P Bronchoscopy with biopsy last Thursday. Abx. - Nonsustained run of vtach overnight, cardiology evaluation pending. - Sepsis due to cellulitis of the rue, right olecranon bursitis. Vancomycin PLAN: - SEEMA - PPI - Monitor hh - Transfuse as necessary - Supportive care - EGD +/- Dilatation once cleared by cardiology - Refusing colonoscopy - Further recommendations to follow based on results of above - Pt seen and examined by Dr. Danielson and myself and this note is written on her behalf Joseline Polanco Jun 23, 2016 11:26
--- NOTE | 2016-06-23 11:32 | RSPPFT ---
DATE OF PROCEDURE: 06/17/16 COMMENTS: Spirometry demonstrates an FEV1 of 0.6 at 24% of predicted, FVC of 1.4 at 41%, FEV1/FVC ratio is 45%. Post-bronchodilator study demonstrated no significant change. Flow volume loops suggest an obstructive pattern. IMPRESSION: 1. Severe obstructive disease. 2. No significant improvements following use of bronchodilator.
--- NOTE | 2016-06-23 17:24 | PD.CARD.PN ---
Subjective Subjective Remarks Pt without CV complaints; I was reconsulted for NSVT Objective Medications Current Medications Medications (Trade) Dose Ordered Sig/Mitchell Route Start Time Stop Time Status Last Admin (NS Flush) 2 ml UNSCH PRN IVF 06/05/16 12:30 06/20/16 08:08 (Tylenol) 650 mg Q4H PRN PO 06/05/16 15:45 06/21/16 01:23 (Oden 5-325 Mg) 1 tab Q4H PRN PO 06/05/16 15:45 06/23/16 08:43 (Dilaudid Pf Inj) 0.2 mg Q4H PRN IV PUSH 06/05/16 15:45 06/05/16 16:47 (Zofran Inj) 4 mg Q8HR PRN IV PUSH 06/05/16 15:45 06/17/16 13:26 (Aspirin Chew) 81 mg DAILY CHEW 06/06/16 09:00 06/18/16 09:50 (Symbicort 160-4.5 Inh) 2 puff BID INH 06/05/16 21:00 06/23/16 08:43 (Prinivil) 20 mg DAILY PO 06/06/16 09:00 06/23/16 08:41 (Clear Eyes Redness Relief 0.012% Opth Soln) 1 drop QID PRN EACH EYE 06/05/16 16:30 (D50w (Vial) Inj) 25 ml UNSCH PRN IV PUSH 06/05/16 15:45 06/10/16 06:34 (Glucagon Inj) 1 mg UNSCH PRN OTHER 06/05/16 15:45 (Xanax) 0.25 mg Q12HR PRN PO 06/06/16 13:00 06/23/16 01:45 (Ambien) 5 mg HS PRN PO 06/06/16 21:00 06/22/16 23:38 (Robitussin Ac 200-20 Mg/10 ml Liq) 10 ml Q6H PRN PO 06/10/16 10:00 06/23/16 11:05 (Colace) 100 mg BID PRN PO 06/11/16 10:30 06/13/16 12:38 (Levemir Inj) 8 units HS SQ 06/14/16 21:00 06/22/16 21:00 (Protonix) 40 mg DAILY PO 06/14/16 09:00 06/23/16 08:42 (Levaquin) 500 mg Q24H PO 06/16/16 20:00 06/24/16 19:59 06/22/16 21:26 (Levemir Inj) 18 units DAILY SQ 06/19/16 09:00 06/22/16 09:40 (Cardizem Cd) 240 mg DAILY PO 06/19/16 09:00 06/23/16 08:41 (Genteal Severe Dry Eye Relief 0.3% Opth Gel) 2 drop Q6H EACH EYE 06/19/16 10:00 06/23/16 15:56 (Lactinex) 1 tab TID PO 06/21/16 13:00 06/23/16 14:09 (Deltasone) 20 mg DAILY PO 06/22/16 09:00 06/23/16 08:42 (Lasix) 40 mg DAILY PO 06/22/16 09:00 06/23/16 08:42 Metronidazole 500 mg 500 mg Q8HR PO 06/22/16 14:00 07/06/16 13:59 06/23/16 14:09 (Cordarone Inj/ D5W ([place]) Inj) 259 ml @ 0 mls/hr CONTINUOUS IV 06/23/16 03:45 06/23/16 04:30 (KCl) 20 meq DAILY PO 06/23/16 09:00 06/23/16 08:41 (K-Phos) 1,000 mg Q12HR PO 06/23/16 09:00 06/23/16 08:42 Vital Signs / I&O Vital Signs Date Time Temp Pulse Resp B/P Pulse Ox O2 Delivery O2 Flow Rate FiO2 06/23/16 16:03 98.3 103 20 127/62 95 06/23/16 16:03 102 06/23/16 15:18 104 06/23/16 14:42 91 06/23/16 13:30 106 06/23/16 12:40 112 06/23/16 12:40 98.9 112 20 144/78 92 06/23/16 11:10 112 06/23/16 10:30 85 06/23/16 10:25 18 06/23/16 09:53 89 06/23/16 08:35 97 Nasal Cannula 4.00 06/23/16 08:35 85 06/23/16 08:35 98.7 101 22 136/81 97 06/23/16 08:08 94 Nasal Cannula 4.00 06/23/16 06:30 138/67 06/23/16 06:15 135/66 06/23/16 06:00 74 06/23/16 06:00 74 130/66 06/23/16 05:45 136/73 06/23/16 05:30 139/71 06/23/16 05:15 137/69 06/23/16 05:00 76 135/68 06/23/16 05:00 76 06/23/16 04:45 136/68 06/23/16 04:30 131/67 06/23/16 04:20 97.8 80 24 136/70 97 06/23/16 04:00 75 06/23/16 03:00 76 06/23/16 02:00 78 06/23/16 01:00 78 06/23/16 00:00 98.4 109 24 167/90 94 06/23/16 00:00 90 06/22/16 23:00 106 06/22/16 22:00 92 06/22/16 21:00 106 06/22/16 20:00 98.5 91 24 157/73 94 06/22/16 20:00 109 06/22/16 19:00 94 06/22/16 19:00 94 Nasal Cannula 4.00 06/22/16 18:09 109 I/O 06/22/16 06/22/16 06/22/16 06/23/16 06/23/16 06/23/16 07:00 15:00 23:00 07:00 15:00 23:00 Intake Total 480 ml 480 ml 1113 ml Output Total 1000 ml 1100 ml 525 ml Balance -520 ml -620 ml 588 ml Intake Oral 480 ml 480 ml 480 ml IV Total 633 ml Output Urine Total 1000 ml 1100 ml 525 ml # Bowel Movements 1 Physical Exam GENERAL: Well developed, well nourished. No acute distress. HEENT: Jugular venous pressure is normal. CHEST: Lungs clear to auscultation bilaterally. Unlabored respiratory effort. CARDIAC: Regular rate and rhythm without S3, S4, or murmur. ABDOMEN: Soft, nontender, no hepatosplenomegaly. Bowel sounds present. EXTREMITIES: No clubbing, cyanosis, 1+ edema. Laboratory Laboratory Tests Test 06/23/16 03:56 Sodium Level 145 MEQ/L Potassium Level 4.3 MEQ/L Chloride Level 107 MEQ/L Carbon Dioxide Level 35.0 MEQ/L Anion Gap 3 MEQ/L Blood Urea Nitrogen 36 MG/DL Creatinine 0.90 MG/DL Estimat Glomerular Filtration 82 ML/MIN Rate Random Glucose 183 MG/DL Calcium Level 7.5 MG/DL Phosphorus Level 2.3 MG/DL Magnesium Level 2.1 MG/DL Thyroid Stimulating Hormone 0.241 uIU/ML 3rd Gen Assessment and Plan Problem List: (1) VT (ventricular tachycardia) Assessment and Plan: episode of NSVT last night at 01:38 and 39. He was sleeping and gives history of stopping breathing at night => NAN most likely etiology -stop amio (2) Cardiomyopathy Assessment and Plan: EF 30-35%, on UGANACO Pt is has severe COPD and is not a beta rosy candidate recheck EF (3) CAD (coronary artery disease) Assessment and Plan: Pt now reports he had stents earlier this year - obtain copy of records (4) SVT (supraventricular tachycardia) (5) Sepsis (6) COPD with acute exacerbation (7) Cellulitis of right upper extremity Shelia Tirado MD Jun 23, 2016 17:24
--- NOTE | 2016-06-23 19:22 | HHI.PR ---
Subjective Remarks Improved. and walked in sanchez... No hemoptysis . Less cough. . Serena on Bronch washings . Cytology not back yet Objective Vital Signs Date Time Temp Pulse Resp B/P Pulse Ox O2 Delivery O2 Flow Rate FiO2 06/23/16 18:07 107 06/23/16 17:30 119 06/23/16 16:03 98.3 103 20 127/62 95 06/23/16 16:03 102 06/23/16 15:18 104 06/23/16 14:42 91 06/23/16 13:30 106 06/23/16 12:40 112 06/23/16 12:40 98.9 112 20 144/78 92 06/23/16 11:10 112 06/23/16 10:30 85 06/23/16 10:25 18 06/23/16 09:53 89 06/23/16 08:35 97 Nasal Cannula 4.00 06/23/16 08:35 85 06/23/16 08:35 98.7 101 22 136/81 97 06/23/16 08:08 94 Nasal Cannula 4.00 06/23/16 06:30 138/67 06/23/16 06:15 135/66 06/23/16 06:00 74 06/23/16 06:00 74 130/66 06/23/16 05:45 136/73 06/23/16 05:30 139/71 06/23/16 05:15 137/69 06/23/16 05:00 76 135/68 06/23/16 05:00 76 06/23/16 04:45 136/68 06/23/16 04:30 131/67 06/23/16 04:20 97.8 80 24 136/70 97 06/23/16 04:00 75 06/23/16 03:00 76 06/23/16 02:00 78 06/23/16 01:00 78 06/23/16 00:00 98.4 109 24 167/90 94 06/23/16 00:00 90 06/22/16 23:00 106 06/22/16 22:00 92 06/22/16 21:00 106 06/22/16 20:00 98.5 91 24 157/73 94 06/22/16 20:00 109 I/O 2/19/17 2/06/22/16 06/23/16 06/23/16 06/23/16 07:00 15:00 23:00 07:00 15:00 23:00 Intake Total 480 ml 480 ml 1113 ml 1109 ml Output Total 1000 ml 1100 ml 525 ml 1080 ml Balance -520 ml -620 ml 588 ml 29 ml Intake Oral 480 ml 480 ml 480 ml 720 ml IV Total 633 ml 389 ml Output Urine Total 1000 ml 1100 ml 525 ml 1080 ml # Bowel Movements 1 0 Result Diagram: 06/21/16 0620 06/23/16 0356 Objective Remarks This is an elderly averagely built white male who is pale and not dyspneic at rest. EXTREMITIES: There is no clubbing. There is 1+ leg edema, erythema of the elbows . HEENT: Head normocephalic. Pupils are reactive and equal. Tongue was moist. Throat was clear. Ears, no inflammation. NECK: Supple. No venous distension. No thyromegaly or lymphadenopathy. CHEST: Decreased breath sounds at the bases with wheezes over both lung saab.There are occ bibasilar crackles. HEART: The heart sounds are regular S1-S2 with no murmur. No S3. ABDOMEN: The abdomen is soft, nontender. No organomegaly. The bowel sounds are active. EXTREMITIES: Edema 1+ with diminished pulses and joint deformities of the extremities. SKIN: Cool, dry. NEUROLOGIC: He is alert and oriented. Moves all extremities.There are no deficits. Assessment and Plan Assessment and Plan IMPRESSION 1. Cellulitis of the right upper extremity resolving. 2. COPD with emphysema and chronic bronchitis 3. Coronary artery disease with stenting 4. Diabetes mellitus 5. History of hypertension. 6. Left Lung nodules Plan : 1. PT evaluation 2. Nebs qid , duoneb. 3. O2 at 2L. 4. Continue lasix 40 mg Po daily. 5. Prednisone 20 mg daily 6. To rehab soon. 7. CT chest in 2 mths. 8. GI evaluation today. Liv Pinedo MD Jun 23, 2016 19:22
[2016-06-23] MEDS: LEVOFLOXACIN 500 MG TAB PO SCH (21:28)
[2016-06-23] MEDS: ZOLPIDEM TARTRATE 5 MG TAB PO PRN (23:40)
[2016-06-24] VITALS (26 sets, daily range): BP systolic 120–151; BP diastolic 69–78; PULSE 74–123; RESP 18–24; TEMP 97.8–98.1; O2SAT 92–98
[2016-06-24] MEDS: ALPRAZolam 0.25 MG TAB PO PRN (03:15)
[2016-06-24] MEDS: HYPROMELLOSE 0.3 % OPTH GEL 10 GM (0.34 FL OZ) TUBE EACH EYE SCH ×4 (04:00→20:52)
[2016-06-24] MEDS: metroNIDAZOLE 500 MG TAB PO SCH ×3 (05:04→20:52)
[2016-06-24 06:50] LABS: MAGNESIUM 2.1 MG/DL (1.5-2.5); POTASSIUM 4.4 MEQ/L (3.5-5.1)
[2016-06-24] MEDS: ACETAMINOPHEN/HYDROcodone 325 MG/5 MG TAB PO PRN ×2 (07:41→20:52)
[2016-06-24] MEDS: INSULIN ASPART SUPPLEMENTAL SCALE SQ SCH ×4 (07:42→21:00)
[2016-06-24] MEDS ORDERED: PHARMACY ORDERED LAB XX ONE (07:45)
[2016-06-24] MEDS: RESP: ALBUTEROL 2.5 MG/IPRATROPIUM 0.5 MG NEB (SCH) NEB ×4 (07:56→19:26)
[2016-06-24] MEDS: INSULIN DETEMIR 100 UNITS/ML VIAL SQ SCH ×2 (09:00→21:00)
[2016-06-24] MEDS: predniSONE 20 MG TAB PO SCH (09:16)
[2016-06-24] MEDS: DILTIAZEM-CD 240 MG CAP ER PO SCH (09:17)
[2016-06-24] MEDS: LISINOPRIL 20 MG TAB PO SCH (09:17)
[2016-06-24] MEDS: FUROSEMIDE 40 MG TAB PO SCH (09:17)
[2016-06-24] MEDS: LACTOBACILLUS ACIDOPHILUS TAB PO SCH ×3 (09:17→18:00)
[2016-06-24] MEDS: POTASSIUM CHLORIDE 20 MEQ CONTROLLED RELEASE TAB PO SCH (09:17)
[2016-06-24] MEDS: POTASSIUM PHOSPHATE MONOBASIC 500 MG TAB PO SCH ×2 (09:17→20:52)
[2016-06-24] MEDS: PANTOPRAZOLE SOD 40 MG DELAYED RELEASE TAB PO SCH (09:17)
[2016-06-24] MEDS: ASPIRIN 81 MG CHEW TAB CHEW SCH (09:17)
[2016-06-24] MEDS: BUDESONIDE-FORMOTEROL 160/4.5 MCG INHALER INH SCH ×2 (09:22→20:53)
--- NOTE | 2016-06-24 10:41 | HHI.PR ---
Subjective Remarks Follow-up COPD. Improving shortness of breath tolerating 2 L nasal cannula. No further diarrhea. Discussed with RN and pulmonary, awaiting cardiac clearance for EGD. Outside records requested to review echo and cardiac catheter Results Objective Vitals Vital Signs Date Time Temp Pulse Resp B/P Pulse Ox O2 Delivery O2 Flow Rate FiO2 06/24/16 10:20 111 06/24/16 09:28 18 06/24/16 09:00 86 06/24/16 08:30 94 06/24/16 08:30 97.9 94 18 130/73 97 06/24/16 07:57 93 Nasal Cannula 4.00 06/24/16 07:45 98 06/24/16 07:45 97 Nasal Cannula 4.00 06/24/16 06:00 74 06/24/16 05:00 84 06/24/16 04:00 97.8 87 24 135/78 96 06/24/16 04:00 76 06/24/16 03:00 86 06/24/16 02:00 80 06/24/16 01:00 82 06/24/16 00:00 76 06/24/16 00:00 97.9 83 24 151/72 98 06/23/16 23:00 80 06/23/16 22:00 80 06/23/16 21:00 86 06/23/16 20:00 98.1 91 26 141/73 97 06/23/16 20:00 90 06/23/16 19:00 97 Nasal Cannula 4.00 06/23/16 19:00 114 06/23/16 18:07 107 06/23/16 17:30 119 06/23/16 16:03 98.3 103 20 127/62 95 06/23/16 16:03 102 06/23/16 15:18 104 06/23/16 14:42 91 06/23/16 13:30 106 06/23/16 12:40 112 06/23/16 12:40 98.9 112 20 144/78 92 06/23/16 11:10 112 I/O 06/23/16 06/23/16 06/23/16 06/24/16 06/24/16 06/24/16 06:59 14:59 22:59 06:59 14:59 22:59 Intake Total 1113 ml 1109 ml 461 ml Output Total 525 ml 1080 ml 400 ml Balance 588 ml 29 ml 61 ml Intake Oral 480 ml 720 ml 461 ml IV Total 633 ml 389 ml Output Urine Total 525 ml 1080 ml 400 ml # Bowel Movements 0 Result Diagram: 06/21/16 0620 06/24/16 0503 Objective Remarks GENERAL: This is a well-nourished, well-developed patient, in no apparent distress on nasal cannula. No signs of dehydration HEENT: Eyes without signs of infection CARDIOVASCULAR: Regular rate and regular rhythm without murmurs, gallops, or rubs. RESPIRATORY: Decreased breath sounds with no expiratory wheezes GASTROINTESTINAL: Abdomen soft, non-tender, nondistended. Normal, active bowel sounds MUSCULOSKELETAL: Right hand with incised wound on the dorsal surface with no signs of infection- bilateral pedal edema improving. Nonfocal NEURO: Alert & Oriented x4 to person, place, time, situation. Moves all ext x4 Procedures Incision and drainage of right hand abscess Bronchoscopy A/P Problem List: (1) SVT (supraventricular tachycardia) ICD Code: I47.1 Status: Acute (2) Severe sepsis ICD Code: A41.9 Status: Acute (3) COPD with acute exacerbation ICD Code: J44.1 Status: Acute (4) Sepsis ICD Code: A41.9 Status: Acute (5) Cellulitis of right upper extremity ICD Code: L03.113 Status: Acute (6) Abscess of hand, right ICD Code: L02.511 Status: Acute (7) Olecranon bursitis, right elbow ICD Code: M70.21 Status: Acute Assessment and Plan - severe sepsis due to cellulitis of the right upper extremity/ right olecranon bursitis-stable venous doppler of the upper extremities with no DVT-XR of the right elbow with possible olecranon bursitis- US of the right upper extremity with a complex mass overlying the right third finger- s/p I/D of the right nand mass/fluid collection. S/p vancomycin culture positive for MRSA- keep the right hand elevated- continue pain control ID/hand surgery and ortho following; recommended conservative treatment of olecranon bursitis. -HAP. Stable discontinued Zosyn and continue Levaquin last dose today. Repeat chest x-ray stable. Culture with yeast, no need for treatment likely colonization per ID -Pulmonary nodules. Status post bronchoscopy negative cytology. Repeat CT in 2 months -SVT- due to sepsis- - dc'ed IV cardizem and continue po cardizem- cardiology consult appreciated. -ischemic cardiomyopathy with mild levation of troponin- s/p stent placement 2001, follow-up angiogram 2 weeks ago no intervention needed per patient; continue aspirin and lisinopril elevated troponin likely due to tachycardia/ sepsis. Restart asa echo with EF 35% BB not given due to COPD cardiology consulted / VT may need AICD awaiting cardiac catheter results -acute on chronic systolic CHF- continue Lasix and monitor electrolytes. Improving edema. Repeat BMP and magnesium in 2 days -COPD exacerbation-improving dyspnea on exertion continue steroids and neb treatment- will monitor. of note the patient is on home oxygen 2 L currently on 2 L -diabetes with hypoglycemic episode ;with no further hypoglycemia. Hyperglycemic secondary to steroids and noncompliance. Adjust Levemir accordingly.- accu-check with SSI. Patient again counseled regarding compliance he refused fingersticks and Levemir last night -anemia of chronic disease- s/p PRBC transfusion with improved H/H- will monitor stool occult blood positive 1. Continue PPI and consulted GI for endoscopy tomorrow Pulmonary has already cleared patient for endoscopy. -Hypertension. Improving with Lasix and Cardizem. Dry eyes. Eye lubricants. --C. difficile colitis. Improving no diarrhea Continue Lactinex and Flagyl. Monitor electrolytes DVT prophylaxis ; SCD's-no chemical prophylaxis for now due to anemia and Hemoccult-positive stool. -consulted PT/OT Discharge Planning Not ready for dc Jamey Ny MD Jun 24, 2016 10:41
--- NOTE | 2016-06-24 13:06 | HHI.PR ---
Subjective Remarks Improved. and walked in sanchez. No hemoptysis . Serena on Bronch washings . Cytology negative. Objective Vital Signs Date Time Temp Pulse Resp B/P Pulse Ox O2 Delivery O2 Flow Rate FiO2 06/24/16 12:05 89 06/24/16 12:05 97.8 98 18 120/70 92 06/24/16 11:57 99 06/24/16 10:20 111 06/24/16 09:28 18 06/24/16 09:00 86 06/24/16 08:30 94 06/24/16 08:30 97.9 94 18 130/73 97 06/24/16 07:57 93 Nasal Cannula 4.00 06/24/16 07:45 98 06/24/16 07:45 97 Nasal Cannula 4.00 06/24/16 06:00 74 06/24/16 05:00 84 06/24/16 04:00 97.8 87 24 135/78 96 06/24/16 04:00 76 06/24/16 03:00 86 06/24/16 02:00 80 06/24/16 01:00 82 06/24/16 00:00 76 06/24/16 00:00 97.9 83 24 151/72 98 06/23/16 23:00 80 06/23/16 22:00 80 06/23/16 21:00 86 06/23/16 20:00 98.1 91 26 141/73 97 06/23/16 20:00 90 06/23/16 19:00 97 Nasal Cannula 4.00 06/23/16 19:00 114 06/23/16 18:07 107 06/23/16 17:30 119 06/23/16 16:03 98.3 103 20 127/62 95 06/23/16 16:03 102 06/23/16 15:18 104 06/23/16 14:42 91 06/23/16 13:30 106 I/O 06/23/16 06/23/16 06/23/16 06/24/16 06/24/16 06/24/16 07:00 15:00 23:00 07:00 15:00 23:00 Intake Total 1113 ml 1109 ml 461 ml Output Total 525 ml 1080 ml 400 ml Balance 588 ml 29 ml 61 ml Intake Oral 480 ml 720 ml 461 ml IV Total 633 ml 389 ml Output Urine Total 525 ml 1080 ml 400 ml # Bowel Movements 0 Result Diagram: 06/21/16 0620 06/24/16 0503 Objective Remarks This is an elderly averagely built white male who is pale and not dyspneic at rest. EXTREMITIES: There is no clubbing. There is 1+ leg edema, erythema of the elbows . HEENT: Head normocephalic. Pupils are reactive and equal. Tongue was moist. Throat was clear. Ears, no inflammation. NECK: Supple. No venous distension. No thyromegaly or lymphadenopathy. CHEST: Decreased breath sounds at the bases with wheezes over both lung saab.There are occ basilar crackles. HEART: The heart sounds are regular S1-S2 with no murmur. No S3. ABDOMEN: The abdomen is soft, nontender. No organomegaly. The bowel sounds are active. EXTREMITIES: Edema 1+ with diminished pulses and joint deformities of the extremities. SKIN: Cool, dry. NEUROLOGIC: He is alert and oriented. Moves all extremities.There are no deficits. Assessment and Plan Assessment and Plan IMPRESSION 1. Cellulitis of the right upper extremity resolving. 2. COPD with emphysema and chronic bronchitis 3. Coronary artery disease with stenting 4. Diabetes mellitus 5. History of hypertension. 6. Left Lung nodules Plan : 1. PT evaluation and ambulate. 2. Nebs qid , duoneb. 3. O2 at 2L. 4. Continue lasix 40 mg Po daily. 5. Prednisone 20 mg daily 6. Labs in am. 7. CT chest in 2 mths. 8. GI evaluation . Liv Pinedo MD Jun 24, 2016 13:06
--- NOTE | 2016-06-24 14:12 | HHI.GIFU ---
Subjective Remarks Pt is resting comfortably in bed. His appetite is good. Denies difficulty swallowing, n/v, abd pain, or solid food coming back up. He does have diarrhea and has had 2 loose BMs today. No blood in stool. Objective Vitals I&O Vital Signs Date Time Temp Pulse Resp B/P Pulse Ox O2 Delivery O2 Flow Rate FiO2 06/24/16 13:16 88 06/24/16 12:05 89 06/24/16 12:05 97.8 98 18 120/70 92 06/24/16 11:57 99 06/24/16 10:20 111 06/24/16 09:28 18 06/24/16 09:00 86 06/24/16 08:30 94 06/24/16 08:30 97.9 94 18 130/73 97 06/24/16 07:57 93 Nasal Cannula 4.00 06/24/16 07:45 98 06/24/16 07:45 97 Nasal Cannula 4.00 06/24/16 06:00 74 06/24/16 05:00 84 06/24/16 04:00 97.8 87 24 135/78 96 06/24/16 04:00 76 06/24/16 03:00 86 06/24/16 02:00 80 06/24/16 01:00 82 06/24/16 00:00 76 06/24/16 00:00 97.9 83 24 151/72 98 06/23/16 23:00 80 06/23/16 22:00 80 06/23/16 21:00 86 06/23/16 20:00 98.1 91 26 141/73 97 06/23/16 20:00 90 06/23/16 19:00 97 Nasal Cannula 4.00 06/23/16 19:00 114 06/23/16 18:07 107 06/23/16 17:30 119 06/23/16 16:03 98.3 103 20 127/62 95 06/23/16 16:03 102 06/23/16 15:18 104 06/23/16 14:42 91 I/O 06/23/16 06/23/16 06/23/16 06/24/16 06/24/16 06/24/16 07:00 15:00 23:00 07:00 15:00 23:00 Intake Total 1113 ml 1109 ml 461 ml Output Total 525 ml 1080 ml 400 ml Balance 588 ml 29 ml 61 ml Intake Oral 480 ml 720 ml 461 ml IV Total 633 ml 389 ml Output Urine Total 525 ml 1080 ml 400 ml # Bowel Movements 0 Laboratory Laboratory Tests Test 06/24/16 05:03 Sodium Level 141 Potassium Level 4.4 Chloride Level 102 Carbon Dioxide Level 32.0 Anion Gap 7 Blood Urea Nitrogen 32 Creatinine 1.01 Estimat Glomerular Filtration 72 Rate Random Glucose 229 Calcium Level 7.7 Phosphorus Level 3.0 Magnesium Level 2.1 Date/Time Procedure Status Source Growth 06/20/16 12:12 Gram Stain - Final Complete Bronchial Washings Other 06/20/16 12:12 Bronchial Culture - Final Complete Bronchial Washings Other HEAVY GROWTH NORMAL RESPIRATORY BRITTANIE 06/20/16 12:12 Fungal Smear - Final Resulted Bronchial Washings Other MANY BUDDING YEAST WITH PSEUDOHYPHAE 06/20/16 12:12 Fungal Culture - Preliminary Resulted Yeast Species Mold Species 06/20/16 12:12 Bronchial Aspirate Culture - Final Complete Bronchial Brushings Left Upper Lobe NO GROWTH IN 48 HOURS. 06/20/16 12:12 Acid Fast Stain - Final Resulted Bronchial Washings Other NO ACID FAST BACILLI SEEN 06/20/16 12:12 Mycobacterial Culture Resulted Bronchial Washings Other Pending Imaging Last Impressions Upper Extremity Ultrasound 06/20/16 0000 Signed Impressions: Service Date/Time: Monday, June 20, 2016 10:13 - CONCLUSION: Negative ultrasound with no evidence of abscess. Beau Croft MD Chest X-Ray 06/20/16 0000 Signed Impressions: Service Date/Time: Monday, June 20, 2016 12:44 - CONCLUSION: 1. Stable appearance with no evidence of pneumothorax. 2. Streaky opacity remains the left lung base with blunting of the costophrenic angle. 3. The known small masses seen on CT are not visualized. Beau Croft MD Barium Swallow X-Ray 06/20/16 0000 Signed Impressions: Service Date/Time: Monday, June 20, 2016 17:17 - CONCLUSION: Unremarkable exam with no evidence of stricture or obstruction. Beau Croft MD Chest CT 06/16/162028 Signed Impressions: Service Date/Time: Thursday, June 16, 2016 21:53 - CONCLUSION: 1. Two 1.3 cm irregular masses in the left lung. The one in the left upper lobe is cavitary. These could be further evaluated with a PET/FDG study to determine if they are metabolically active or not. Neoplastic change cannot be excluded. 2. Small 5 mm nodules seen in the left upper lobe and left lower lobe. These are nonspecific. 3. Minimal left pleural effusion. 4. Atherosclerotic change at the coronary arteries and aorta. Christoph Sandoval MD Elbow X-Ray 06/05/16 0000 Signed Impressions: Service Date/Time: June 17:02 - CONCLUSION: Minimal arthritic findings. Prominent soft tissue swelling of the olecranon process indicating possible olecranon bursitis. Matt Sapp MD Physical Exam HEENT: Normocephalic; atraumatic; no jaundice. CHEST: Resp even, non labored, diminished breath sounds, sob on exertion. O2 3L CARDIAC: RRR ABDOMEN: Soft, nondistended, nontender; no hepatosplenomegaly; bowel sounds are present in all four quadrants. EXTREMITIES: No clubbing, cyanosis. BLE 3+ pitting edema. SKIN: Multiple ecchymotic areas PLATINUMSMITH: No focal deficits; alert and oriented times three. Assessment and Plan Plan ASSESSMENT: - Anemia, Hemoccult (+) Stools. 9.3/27.8. Pt is absolutely refusing colonoscopy, but would like to have the EGD done. His respiratory status is improved from last week. On O2 3L via n/c (baseline 2), diminished breath sounds, sob with exertion. EGD +/- Dilatation cancelled secondary to run of [facility]. Cardiology following. Will plan for egd +/- dilatation once cleared by cardiology (refusing colonoscopy). - Reflux, coughing up food particles. States he has no issues swallowing but when he lays down he will later cough up food particles such as corn or beans. He has had EGD with dilatations in the past but cannot tell me if he has an esophageal diverticulum. Barium Swallow X-Ray (06/20/16)-----> Unremarkable exam with no evidence of stricture or obstruction. PPI - COPD/Patchy bibasilar infiltrates on cxr. CT thorax with 1. Two 1.3 cm irregular masses in the left lung. The one in the left upper lobe is cavitary. These could be further evaluated with a PET/FDG study to determine if they are metabolically active or not. Neoplastic change cannot be excluded. 2. Small 5 mm nodules seen in the left upper lobe and left lower lobe. These are nonspecific. 3. Minimal left pleural effusion. 4. Atherosclerotic change at the coronary arteries and aorta. Nebs. S/P Bronchoscopy with biopsy benign. Abx. - Nonsustained run of vtach overnight, cardiology following. - Sepsis due to cellulitis of the rue, right olecranon bursitis. Vancomycin PLAN: - SEEMA - PPI - Monitor hh - Transfuse as necessary - Supportive care - EGD +/- Dilatation once cleared by cardiology - Refusing colonoscopy - Please notify GI once pt is cleared for procedure - Pt seen and examined by Dr. Danielson and myself and this note is written on his behalf Joseline Polanco Jun 24, 2016 14:12
--- NOTE | 2016-06-24 16:43 | ECHLIM ---
Study Study Date:06/24/2016 STUDY CONCLUSIONS SUMMARY - Left ventricle: The cavity size was dilated. Wall thickness was normal. Systolic function was severely reduced by visual assessment. The estimated ejection fraction was in the range of 30% to 35%. Diffuse hypokinesis. - Tricuspid valve: Mild regurgitation. If LV function is below 40, please consider prescribing an ACEI or ARB or document rationale for non-use. PROCEDURE DATA STUDY STATUS: Elective. Procedure: Transthoracic echocardiography. Image quality was good. Scanning was performed from the parasternal, apical, and subcostal acoustic windows. Study completion: The patient tolerated the procedure well. Transthoracic echocardiography. M-mode, complete 2D, complete spectral Doppler, and color Doppler. Patient status: Inpatient. CARDIAC ANATOMY LEFT VENTRICLE: The cavity size was dilated. Wall thickness was normal. Systolic function was severely reduced by visual assessment. The estimated ejection fraction was in the range of 30% to 35%. Diffuse hypokinesis. AORTIC VALVE: Trileaflet; normal thickness leaflets. Doppler: Transvalvular velocity was within the normal range. There was no stenosis. No regurgitation. AORTA: Aortic root: The aortic root was normal in size. MITRAL VALVE: Structurally normal valve. Doppler: Transvalvular velocity was within the normal range. There was no evidence for stenosis. No regurgitation. LEFT ATRIUM: The atrium was normal in size. RIGHT VENTRICLE: The cavity size was normal. Wall thickness was normal. PULMONIC VALVE: Doppler: Transvalvular velocity was within the normal range. There was no evidence for stenosis. No regurgitation. TRICUSPID VALVE: Structurally normal valve. Doppler: Transvalvular velocity was within the normal range. Mild regurgitation. PULMONARY ARTERY: The main pulmonary artery was normal-sized. Systolic pressure was within the normal range. RIGHT ATRIUM: The atrium was normal in size. PERICARDIUM: There was no pericardial effusion. SYSTEMIC VEINS: Inferior vena cava: The vessel was normal in size. BASIC MEASUREMENTS ADULT NORMAL Left ventricle LV internal dimension, ED, chordal level, 50.7 mm 43-52 PLAX LV internal dimension, ES, chordal level, *44.1 mm 23-38 PLAX Fractional shortening, chordal level, PLAX *13 % >29 LV posterior wall thickness, ED 10.4 mm IVS/LVPW ratio, ED 1.17 <1.3 Ventricular septum Septal thickness, ED 12.2 mm Right ventricle RV internal dimension, ED, PLAX 27.1 mm 19-38 LEGEND: Mean values are shown as u=mean value. Asterisk (*) salas values outside specified normal range. Prepared and signed by Nikunj Kang [id number]
--- NOTE | 2016-06-24 18:00 | PD.CARD.PN ---
Subjective Subjective Remarks Pt without CV complaints Objective Medications Current Medications Medications (Trade) Dose Ordered Sig/Mitchell Route Start Time Stop Time Status Last Admin (NS Flush) 2 ml UNSCH PRN IVF 06/05/16 12:30 06/20/16 08:08 (Tylenol) 650 mg Q4H PRN PO 06/05/16 15:45 06/21/16 01:23 ([place]ia 5-325 Mg) 1 tab Q4H PRN PO 06/05/16 15:45 06/24/16 07:41 (Dilaudid Pf Inj) 0.2 mg Q4H PRN IV PUSH 06/05/16 15:45 06/05/16 16:47 (Zofran Inj) 4 mg Q8HR PRN IV PUSH 06/05/16 15:45 06/17/16 13:26 (Aspirin Chew) 81 mg DAILY CHEW 06/06/16 09:00 06/24/16 09:17 (Symbicort 160-4.5 Inh) 2 puff BID INH 06/05/16 21:00 06/24/16 09:22 (Prinivil) 20 mg DAILY PO 06/06/16 09:00 06/24/16 09:17 (Clear Eyes Redness Relief 0.012% Opth Soln) 1 drop QID PRN EACH EYE 06/05/16 16:30 (D50w (Vial) Inj) 25 ml UNSCH PRN IV PUSH 06/05/16 15:45 06/10/16 06:34 (Glucagon Inj) 1 mg UNSCH PRN OTHER 06/05/16 15:45 (Xanax) 0.25 mg Q12HR PRN PO 06/06/16 13:00 06/24/16 03:15 (Ambien) 5 mg HS PRN PO 06/06/16 21:00 06/23/16 23:40 (Robitussin Ac 200-20 Mg/10 ml Liq) 10 ml Q6H PRN PO 06/10/16 10:00 06/23/16 21:28 (Colace) 100 mg BID PRN PO 06/11/16 10:30 06/13/16 12:38 (Levemir Inj) 8 units HS SQ 06/14/16 21:00 06/22/16 21:00 (Protonix) 40 mg DAILY PO 06/14/16 09:00 06/24/16 09:17 (Levaquin) 500 mg Q24H PO 06/16/16 20:00 06/24/16 19:59 06/23/16 21:28 (Levemir Inj) 18 units DAILY SQ 06/19/16 09:00 06/24/16 09:00 (Cardizem Cd) 240 mg DAILY PO 06/19/16 09:00 06/24/16 09:17 (Genteal Severe Dry Eye Relief 0.3% Opth Gel) 2 drop Q6H EACH EYE 06/19/16 10:00 06/24/16 16:00 (Lactinex) 1 tab TID PO 06/21/16 13:00 06/24/16 13:15 (Lasix) 40 mg DAILY PO 06/22/16 09:00 06/24/16 09:17 (Flagyl) 500 mg Q8HR PO 06/22/16 14:00 07/06/16 13:59 06/24/16 13:15 (KCl) 20 meq DAILY PO 06/23/16 09:00 06/24/16 09:17 (K-Phos) 1,000 mg Q12HR PO 06/23/16 09:00 06/24/16 09:17 (Deltasone) 15 mg DAILY PO 06/24/16 09:00 06/24/16 09:16 Vital Signs / I&O Vital Signs Date Time Temp Pulse Resp B/P Pulse Ox O2 Delivery O2 Flow Rate FiO2 06/24/16 17:02 123 06/24/16 16:17 98.1 94 18 138/69 94 06/24/16 16:17 101 06/24/16 15:23 103 06/24/16 15:12 95 Nasal Cannula 4.00 06/24/16 14:18 106 06/24/16 13:16 88 06/24/16 12:05 89 06/24/16 12:05 97.8 98 18 120/70 92 06/24/16 11:57 99 06/24/16 10:20 111 06/24/16 09:28 18 06/24/16 09:00 86 06/24/16 08:30 94 06/24/16 08:30 97.9 94 18 130/73 97 06/24/16 07:57 93 Nasal Cannula 4.00 06/24/16 07:45 98 06/24/16 07:45 97 Nasal Cannula 4.00 06/24/16 06:00 74 06/24/16 05:00 84 06/24/16 04:00 97.8 87 24 135/78 96 06/24/16 04:00 76 06/24/16 03:00 86 06/24/16 02:00 80 06/24/16 01:00 82 06/24/16 00:00 76 06/24/16 00:00 97.9 83 24 151/72 98 06/23/16 23:00 80 06/23/16 22:00 80 06/23/16 21:00 86 06/23/16 20:00 98.1 91 26 141/73 97 06/23/16 20:00 90 06/23/16 19:00 97 Nasal Cannula 4.00 06/23/16 19:00 114 06/23/16 18:07 107 I/O 06/23/16 06/23/16 06/23/16 06/24/16 06/24/16 06/24/16 07:00 15:00 23:00 07:00 15:00 23:00 Intake Total 1113 ml 1109 ml 461 ml Output Total 525 ml 1080 ml 400 ml Balance 588 ml 29 ml 61 ml Intake Oral 480 ml 720 ml 461 ml IV Total 633 ml 389 ml Output Urine Total 525 ml 1080 ml 400 ml # Bowel Movements 0 Physical Exam GENERAL: Well developed, well nourished. No acute distress. HEENT: Jugular venous pressure is normal. CHEST: Lungs clear to auscultation bilaterally. Unlabored respiratory effort. CARDIAC: Regular rate and rhythm without S3, S4, or murmur. ABDOMEN: Soft, nontender, no hepatosplenomegaly. Bowel sounds present. EXTREMITIES: No clubbing, cyanosis, 1+ edema. Laboratory Laboratory Tests Test 06/24/16 05:03 Sodium Level 141 MEQ/L Potassium Level 4.4 MEQ/L Chloride Level 102 MEQ/L Carbon Dioxide Level 32.0 MEQ/L Anion Gap 7 MEQ/L Blood Urea Nitrogen 32 MG/DL Creatinine 1.01 MG/DL Estimat Glomerular Filtration 72 ML/MIN Rate Random Glucose 229 MG/DL Calcium Level 7.7 MG/DL Phosphorus Level 3.0 MG/DL Magnesium Level 2.1 MG/DL Assessment and Plan Problem List: (1) VT (ventricular tachycardia) Assessment and Plan: no further episodes 06/23/16- episode of NSVT last night at 01:38 and 39. He was sleeping and gives history of stopping breathing at night => NAN most likely etiology off amio (2) Cardiomyopathy Assessment and Plan: EF 30-35%, on GUANACO Pt is has severe COPD and is not a beta rosy candidate recheck EF =30-35% (3) CAD (coronary artery disease) Assessment and Plan: Pt reports he had stents earlier this year - records requested earlier today and not received (4) SVT (supraventricular tachycardia) (5) Sepsis (6) COPD with acute exacerbation (7) Cellulitis of right upper extremity Assessment and Plan Preop evaluation for GI- Pt tolerated bronch today without difficulty and remains asymptomatic from a CV perspective. It is reasonable for GI to go forward with the procedures, though he will be at an elevated CV risk from recent stent. Shelia Tirado MD Jun 24, 2016 18:00
[2016-06-24] MEDS: guaiFENesin/CODEINE SYRUP 200 MG/20 MG/10 ML CUP PO PRN (20:51)
[2016-06-24] MEDS: ZOLPIDEM TARTRATE 5 MG TAB PO PRN (23:33)
[2016-06-25] VITALS (27 sets, daily range): BP systolic 133–147; BP diastolic 68–82; PULSE 78–112; RESP 18–24; TEMP 97.8–98.8; O2SAT 91–99
[2016-06-25] MEDS: HYPROMELLOSE 0.3 % OPTH GEL 10 GM (0.34 FL OZ) TUBE EACH EYE SCH ×4 (04:00→21:21)
[2016-06-25] MEDS: ALPRAZolam 0.25 MG TAB PO PRN ×2 (04:47→21:26)
[2016-06-25] MEDS: metroNIDAZOLE 500 MG TAB PO SCH ×3 (04:47→21:26)
[2016-06-25] MEDS: INSULIN ASPART SUPPLEMENTAL SCALE SQ SCH ×4 (07:00→21:00)
--- NOTE | 2016-06-25 07:09 | PD.CARD.PN ---
Subjective Subjective Remarks no complaints over night Objective Medications Current Medications Medications (Trade) Dose Ordered Sig/Mitchell Route Start Time Stop Time Status Last Admin (NS Flush) 2 ml UNSCH PRN IVF 06/05/16 12:30 06/20/16 08:08 (Tylenol) 650 mg Q4H PRN PO 06/05/16 15:45 06/21/16 01:23 (Oneida 5-325 Mg) 1 tab Q4H PRN PO 06/05/16 15:45 06/24/16 20:52 (Dilaudid Pf Inj) 0.2 mg Q4H PRN IV PUSH 06/05/16 15:45 06/05/16 16:47 (Zofran Inj) 4 mg Q8HR PRN IV PUSH 06/05/16 15:45 06/17/16 13:26 (Aspirin Chew) 81 mg DAILY CHEW 06/06/16 09:00 06/24/16 09:17 (Symbicort 160-4.5 Inh) 2 puff BID INH 06/05/16 21:00 06/24/16 20:53 (Prinivil) 20 mg DAILY PO 06/06/16 09:00 06/24/16 09:17 (Clear Eyes Redness Relief 0.012% Opth Soln) 1 drop QID PRN EACH EYE 06/05/16 16:30 (D50w (Vial) Inj) 25 ml UNSCH PRN IV PUSH 06/05/16 15:45 06/10/16 06:34 (Glucagon Inj) 1 mg UNSCH PRN OTHER 06/05/16 15:45 (Xanax) 0.25 mg Q12HR PRN PO 06/06/16 13:00 06/25/16 04:47 (Ambien) 5 mg HS PRN PO 06/06/16 21:00 06/24/16 23:33 (Robitussin Ac 200-20 Mg/10 ml Liq) 10 ml Q6H PRN PO 06/10/16 10:00 06/24/16 20:51 (Colace) 100 mg BID PRN PO 06/11/16 10:30 06/13/16 12:38 (Levemir Inj) 8 units HS SQ 06/14/16 21:00 06/24/16 21:00 (Protonix) 40 mg DAILY PO 06/14/16 09:00 06/24/16 09:17 (Levemir Inj) 18 units DAILY SQ 06/19/16 09:00 06/24/16 09:00 (Cardizem Cd) 240 mg DAILY PO 06/19/16 09:00 06/24/16 09:17 (Genteal Severe Dry Eye Relief 0.3% Opth Gel) 2 drop Q6H EACH EYE 06/19/16 10:00 06/24/16 20:52 (Lactinex) 1 tab TID PO 06/21/16 13:00 06/24/16 18:00 (Lasix) 40 mg DAILY PO 06/22/16 09:00 06/24/16 09:17 (Flagyl) 500 mg Q8HR PO 06/22/16 14:00 07/06/16 13:59 06/25/16 04:47 (KCl) 20 meq DAILY PO 06/23/16 09:00 06/24/16 09:17 (K-Phos) 1,000 mg Q12HR PO 06/23/16 09:00 06/24/16 20:52 (Deltasone) 15 mg DAILY PO 06/24/16 09:00 06/24/16 09:16 Vital Signs / I&O Vital Signs Date Time Temp Pulse Resp B/P Pulse Ox O2 Delivery O2 Flow Rate FiO2 06/24/16 18:13 104 06/24/16 17:02 123 06/24/16 16:17 98.1 94 18 138/69 94 06/24/16 16:17 101 06/24/16 15:23 103 06/24/16 15:12 95 Nasal Cannula 4.00 06/24/16 14:18 106 06/24/16 13:16 88 06/24/16 12:05 89 06/24/16 12:05 97.8 98 18 120/70 92 06/24/16 11:57 99 06/24/16 10:20 111 06/24/16 09:28 18 06/24/16 09:00 86 06/24/16 08:30 94 06/24/16 08:30 97.9 94 18 130/73 97 06/24/16 07:57 93 Nasal Cannula 4.00 06/24/16 07:45 98 06/24/16 07:45 97 Nasal Cannula 4.00 I/O 06/24/16 06/24/16 06/24/16 06/25/16 06/25/16 06/25/16 07:00 15:00 23:00 07:00 15:00 23:00 Intake Total 461 ml 1200 ml Output Total 400 ml 1250 ml Balance 61 ml -50 ml Intake Oral 461 ml 1200 ml Output Urine Total 400 ml 1250 ml # Bowel Movements 1 Physical Exam GENERAL: Well developed, well nourished. No acute distress. HEENT: Jugular venous pressure is normal. CHEST: Lungs clear to auscultation bilaterally. Unlabored respiratory effort. CARDIAC: Regular rate and rhythm without S3, S4, or murmur. ABDOMEN: Soft, nontender, no hepatosplenomegaly. Bowel sounds present. EXTREMITIES: No clubbing, cyanosis, 1+ edema. Assessment and Plan Problem List: (1) VT (ventricular tachycardia) Assessment and Plan: 06/25 no further episodes; off amio 06/23/16- episode of NSVT last night at 01:38 and 39. He was sleeping and gives history of stopping breathing at night => NAN most likely etiology (2) Cardiomyopathy Assessment and Plan: EF 30-35%, on GUANACO Pt is has severe COPD and is not a beta rosy candidate recheck EF =30-35% (3) CAD (coronary artery disease) Assessment and Plan: 06/23 Pt reports he had stents earlier this year 06/24 records requested earlier and not received 06/25 Pt now reports stents were 12 year ago, cath 2 years ago with open stents -poor historian -no active issues -obtain records from [facility] as hospital is not sending (4) SVT (supraventricular tachycardia) (5) Sepsis (6) COPD with acute exacerbation (7) Cellulitis of right upper extremity Assessment and Plan Preop evaluation for GI- Pt tolerated bronch yesterday without difficulty and remains asymptomatic from a CV perspective. It is reasonable for GI to go forward with the procedures Shelia Tirado MD Jun 25, 2016 07:09 Shelia Tirado MD Jun 25, 2016 07:09
[2016-06-25] MEDS: RESP: ALBUTEROL 2.5 MG/IPRATROPIUM 0.5 MG NEB (SCH) NEB ×4 (08:05→20:24)
[2016-06-25] MEDS: INSULIN DETEMIR 100 UNITS/ML VIAL SQ SCH ×2 (09:00→21:00)
[2016-06-25] MEDS: LACTOBACILLUS ACIDOPHILUS TAB PO SCH ×3 (09:11→17:34)
[2016-06-25] MEDS: predniSONE 20 MG TAB PO SCH (09:12)
[2016-06-25] MEDS: LISINOPRIL 20 MG TAB PO SCH (09:12)
[2016-06-25] MEDS: POTASSIUM PHOSPHATE MONOBASIC 500 MG TAB PO SCH ×2 (09:12→21:26)
[2016-06-25] MEDS: POTASSIUM CHLORIDE 20 MEQ CONTROLLED RELEASE TAB PO SCH (09:12)
[2016-06-25] MEDS: FUROSEMIDE 40 MG TAB PO SCH (09:13)
[2016-06-25] MEDS: BUDESONIDE-FORMOTEROL 160/4.5 MCG INHALER INH SCH ×2 (09:13→21:00)
[2016-06-25] MEDS: SODIUM CHLORIDE 0.9% FLUSH 5 ML FLUSH IVF PRN (09:13)
[2016-06-25] MEDS: DILTIAZEM-CD 240 MG CAP ER PO SCH (09:13)
[2016-06-25] MEDS: ASPIRIN 81 MG CHEW TAB CHEW SCH (09:13)
[2016-06-25] MEDS: PANTOPRAZOLE SOD 40 MG DELAYED RELEASE TAB PO SCH (09:13)
--- NOTE | 2016-06-25 09:21 | HHI.PR ---
Subjective Remarks Follow-up NSVT. No recurrence. Improving shortness of breath on 1.5 L nasal cannula. Patient states he had a total of 4 stenting last in 2006. He had cardiac catheterization 2 years ago which did not require intervention. Underwent stress test 3 weeks ago results not known to the patient. 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 He has been cleared for endoscopy by cardiology discussed with RN Objective Vitals Vital Signs Date Time Temp Pulse Resp B/P Pulse Ox O2 Delivery O2 Flow Rate FiO2 06/25/16 08:06 97 Nasal Cannula 2.00 06/25/16 08:04 89 06/25/16 07:46 Nasal Cannula 2.00 06/25/16 07:46 89 06/24/16 19:00 92 Nasal Cannula 2.00 06/24/16 18:13 104 06/24/16 17:02 123 06/24/16 16:17 98.1 94 18 138/69 94 06/24/16 16:17 101 06/24/16 15:23 103 06/24/16 15:12 95 Nasal Cannula 4.00 06/24/16 14:18 106 06/24/16 13:16 88 06/24/16 12:05 89 06/24/16 12:05 97.8 98 18 120/70 92 06/24/16 11:57 99 06/24/16 10:20 111 06/24/16 09:28 18 I/O 06/24/16 06/24/16 06/24/16 06/25/16 06/25/16 06/25/16 07:00 15:00 23:00 07:00 15:00 23:00 Intake Total 461 ml 1200 ml 0 ml Output Total 400 ml 1250 ml Balance 61 ml -50 ml 0 ml Intake Oral 461 ml 1200 ml IV Total 0 ml Output Urine Total 400 ml 1250 ml # Bowel Movements 1 Result Diagram: 06/21/16 0620 06/24/16 0503 Imaging Last Impressions Upper Extremity Ultrasound 06/20/16 0000 Signed Impressions: Service Date/Time: Monday, June 20, 2016 10:13 - CONCLUSION: Negative ultrasound with no evidence of abscess. Beau Croft MD Chest X-Ray 06/20/16 0000 Signed Impressions: Service Date/Time: Monday, June 20, 2016 12:44 - CONCLUSION: 1. Stable appearance with no evidence of pneumothorax. 2. Streaky opacity remains the left lung base with blunting of the costophrenic angle. 3. The known small masses seen on CT are not visualized. Beau Croft MD Barium Swallow X-Ray 06/20/16 0000 Signed Impressions: Service Date/Time: Monday, June 20, 2016 17:17 - CONCLUSION: Unremarkable exam with no evidence of stricture or obstruction. Beau Croft MD Chest CT 06/16/162028 Signed Impressions: Service Date/Time: Thursday, June 16, 2016 21:53 - CONCLUSION: 1. Two 1.3 cm irregular masses in the left lung. The one in the left upper lobe is cavitary. These could be further evaluated with a PET/FDG study to determine if they are metabolically active or not. Neoplastic change cannot be excluded. 2. Small 5 mm nodules seen in the left upper lobe and left lower lobe. These are nonspecific. 3. Minimal left pleural effusion. 4. Atherosclerotic change at the coronary arteries and aorta. Christoph Sandoval MD Elbow X-Ray 06/05/16 0000 Signed Impressions: Service Date/Time: June 17:02 - CONCLUSION: Minimal arthritic findings. Prominent soft tissue swelling of the olecranon process indicating possible olecranon bursitis. Matt Sapp MD Objective Remarks GENERAL: This is a well-nourished, well-developed patient, in no apparent distress on nasal cannula. No signs of dehydration HEENT: Eyes without signs of infection CARDIOVASCULAR: Regular rate and regular rhythm without murmurs, gallops, or rubs. RESPIRATORY: Decreased breath sounds with no expiratory wheezes GASTROINTESTINAL: Abdomen soft, non-tender, nondistended. Normal, active bowel sounds MUSCULOSKELETAL: Right hand with incised wound on the dorsal surface with no signs of infection- bilateral pedal edema improving. Nonfocal NEURO: Alert & Oriented x4 to person, place, time, situation. Moves all ext x4 Procedures Incision and drainage of right hand abscess Bronchoscopy A/P Problem List: (1) SVT (supraventricular tachycardia) ICD Code: I47.1 Status: Acute (2) Severe sepsis ICD Code: A41.9 Status: Acute (3) COPD with acute exacerbation ICD Code: J44.1 Status: Acute (4) Sepsis ICD Code: A41.9 Status: Acute (5) Cellulitis of right upper extremity ICD Code: L03.113 Status: Acute (6) Abscess of hand, right ICD Code: L02.511 Status: Acute (7) Olecranon bursitis, right elbow ICD Code: M70.21 Status: Acute Assessment and Plan - severe sepsis due to cellulitis of the right upper extremity/ right olecranon bursitis-stable venous doppler of the upper extremities with no DVT-XR of the right elbow with possible olecranon bursitis- US of the right upper extremity with a complex mass overlying the right third finger- s/p I/D of the right nand mass/fluid collection. S/p vancomycin culture positive for MRSA- keep the right hand elevated- continue pain control ID/hand surgery and ortho following; recommended conservative treatment of olecranon bursitis. -HAP. Stable status post Zosyn and Levaquin. Repeat chest x-ray stable. Culture with yeast, no need for treatment likely colonization per ID -Pulmonary nodules. Status post bronchoscopy negative cytology. Repeat CT in 2 months -SVT- due to sepsis- - dc'ed IV cardizem and continue po cardizem- cardiology consult appreciated. -ischemic cardiomyopathy with mild levation of troponin- s/p stent placement 2001, follow-up angiogram 2 weeks ago no intervention needed per patient; continue aspirin and lisinopril elevated troponin likely due to tachycardia/ sepsis. Restart asa echo with EF 35% BB not given due to COPD cardiology consulted 2/2 VT felt to be secondary to NAN discontinued amiodarone drip. 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 Improving edema. Repeat BMP and magnesium in 2 morning -COPD exacerbation-improving dyspnea on exertion continue steroids and neb treatment- will monitor. of note the patient is on home oxygen 2 L currently on 1.5 L -diabetes with hypoglycemic episode ;with no further hypoglycemia. Hyperglycemic secondary to steroids and noncompliance. Adjust Levemir accordingly.- accu-check with SSI. Patient again counseled regarding compliance he refused fingersticks and Levemir last night -anemia of chronic disease- s/p PRBC transfusion with improved H/H- will monitor stool occult blood positive 1. Continue PPI and consulted GI for endoscopy tomorrow Pulmonary and cardiology as already cleared patient for endoscopy. -Hypertension. Improving with Lasix and Cardizem. Dry eyes. Eye lubricants. --C. difficile colitis. Improving no diarrhea Continue Lactinex and Flagyl. Monitor electrolytes DVT prophylaxis ; SCD's-no chemical prophylaxis for now due to anemia and Hemoccult-positive stool. -consulted PT/OT Discharge Planning Not ready for dc Jamey Ny MD Jun 25, 2016 09:21
[2016-06-25] MEDS: guaiFENesin/CODEINE SYRUP 200 MG/20 MG/10 ML CUP PO PRN (13:08)
--- NOTE | 2016-06-25 15:10 | HHI.GIFU ---
Subjective Remarks Resting comfortably in bed. Has had 2BM today. Good appetite. Denies n/v, abdominal pain. Objective Vitals I&O Vital Signs Date Time Temp Pulse Resp B/P Pulse Ox O2 Delivery O2 Flow Rate FiO2 06/25/16 14:38 98 06/25/16 13:11 98.8 110 18 136/80 96 06/25/16 13:01 90 06/25/16 12:53 90 06/25/16 11:31 102 06/25/16 10:42 98.0 101 18 144/82 94 06/25/16 10:40 101 06/25/16 09:34 87 06/25/16 08:06 97 Nasal Cannula 2.00 06/25/16 08:04 89 06/25/16 07:46 Nasal Cannula 2.00 06/25/16 07:46 89 06/25/16 06:00 90 06/25/16 05:00 86 06/25/16 04:00 88 06/25/16 04:00 97.8 93 24 146/80 91 06/25/16 03:00 92 06/25/16 02:00 78 06/25/16 01:00 90 06/25/16 00:00 98.1 93 24 133/68 94 06/25/16 00:00 88 06/24/16 23:00 108 06/24/16 22:00 102 06/24/16 21:00 106 06/24/16 20:00 97.8 107 24 146/71 92 06/24/16 20:00 106 06/24/16 19:00 103 06/24/16 19:00 92 Nasal Cannula 2.00 06/24/16 18:13 104 06/24/16 17:02 123 06/24/16 16:17 98.1 94 18 138/69 94 06/24/16 16:17 101 06/24/16 15:23 103 06/24/16 15:12 95 Nasal Cannula 4.00 I/O 06/24/16 06/24/16 06/24/16 06/25/16 06/25/16 06/25/16 07:00 15:00 23:00 07:00 15:00 23:00 Intake Total 461 ml 1200 ml 0 ml Output Total 400 ml 1250 ml Balance 61 ml -50 ml 0 ml Intake Oral 461 ml 1200 ml IV Total 0 ml Output Urine Total 400 ml 1250 ml # Bowel Movements 1 Imaging Last Impressions Upper Extremity Ultrasound 06/20/16 0000 Signed Impressions: Service Date/Time: Monday, June 20, 2016 10:13 - CONCLUSION: Negative ultrasound with no evidence of abscess. Beau Croft MD Chest X-Ray 06/20/16 0000 Signed Impressions: Service Date/Time: Monday, June 20, 2016 12:44 - CONCLUSION: 1. Stable appearance with no evidence of pneumothorax. 2. Streaky opacity remains the left lung base with blunting of the costophrenic angle. 3. The known small masses seen on CT are not visualized. Beau Croft MD Barium Swallow X-Ray 06/20/16 0000 Signed Impressions: Service Date/Time: Monday, June 20, 2016 17:17 - CONCLUSION: Unremarkable exam with no evidence of stricture or obstruction. Beau Croft MD Chest CT 06/16/162028 Signed Impressions: Service Date/Time: Thursday, June 16, 2016 21:53 - CONCLUSION: 1. Two 1.3 cm irregular masses in the left lung. The one in the left upper lobe is cavitary. These could be further evaluated with a PET/FDG study to determine if they are metabolically active or not. Neoplastic change cannot be excluded. 2. Small 5 mm nodules seen in the left upper lobe and left lower lobe. These are nonspecific. 3. Minimal left pleural effusion. 4. Atherosclerotic change at the coronary arteries and aorta. Christoph Sandoval MD Elbow X-Ray 06/05/16 0000 Signed Impressions: Service Date/Time: June 17:02 - CONCLUSION: Minimal arthritic findings. Prominent soft tissue swelling of the olecranon process indicating possible olecranon bursitis. Matt Sapp MD Physical Exam HEENT: Normocephalic; atraumatic; no jaundice. CHEST: Resp even, non labored, diminished breath sounds, wheezes CARDIAC: RRR ABDOMEN: Soft, nondistended, nontender; no hepatosplenomegaly; bowel sounds are present in all four quadrants. EXTREMITIES: No clubbing, cyanosis. BLE 2+ pitting edema. SKIN: Multiple ecchymotic areas [employer]: No focal deficits; alert and oriented times three. Assessment and Plan Plan ASSESSMENT: - Anemia, Hemoccult (+) Stools. 9.3/27.8. Pt is absolutely refusing colonoscopy, but would like to have the EGD done. His respiratory status is improved from last week. On O2 3L via n/c (baseline 2), diminished breath sounds, sob with exertion. EGD +/- Dilatation cancelled secondary to run of VR1. Cardiology following. Will plan for egd +/- dilatation once cleared by cardiology (refusing colonoscopy). - Reflux, coughing up food particles. States he has no issues swallowing but when he lays down he will later cough up food particles such as corn or beans. He has had EGD with dilatations in the past but cannot tell me if he has an esophageal diverticulum. Barium Swallow X-Ray (06/20/16)-----> Unremarkable exam with no evidence of stricture or obstruction. PPI - COPD/Patchy bibasilar infiltrates on cxr. CT thorax with 1. Two 1.3 cm irregular masses in the left lung. The one in the left upper lobe is cavitary. These could be further evaluated with a PET/FDG study to determine if they are metabolically active or not. Neoplastic change cannot be excluded. 2. Small 5 mm nodules seen in the left upper lobe and left lower lobe. These are nonspecific. 3. Minimal left pleural effusion. 4. Atherosclerotic change at the coronary arteries and aorta. Nebs. S/P Bronchoscopy with biopsy benign. Abx. - Nonsustained run of VR1 2 nights ago, cardiology following. - Sepsis due to cellulitis of the rue, right olecranon bursitis. PLAN: - EGD +/- Dilatation - obtain consents - NPO after midnight - PPI - Monitor hh - Transfuse as necessary - Supportive care - Refusing colonoscopy - Pt seen and examined by Dr. Danielson and myself and this note is written on his behalf Joseline Polanco Jun 25, 2016 15:10
[2016-06-25] MEDS: ACETAMINOPHEN/HYDROcodone 325 MG/5 MG TAB PO PRN (17:34)
--- NOTE | 2016-06-25 17:51 | HHI.PR ---
Subjective Remarks C/O some SOB with exertion. . Serena on Bronch washings . Cytology negative. Objective Vital Signs Date Time Temp Pulse Resp B/P Pulse Ox O2 Delivery O2 Flow Rate FiO2 06/25/16 16:48 104 06/25/16 16:48 98.0 90 18 138/82 96 06/25/16 15:57 102 06/25/16 14:38 98 06/25/16 13:11 98.8 110 18 136/80 96 06/25/16 13:01 90 06/25/16 12:53 90 06/25/16 11:31 102 06/25/16 10:42 98.0 101 18 144/82 94 06/25/16 10:40 101 06/25/16 09:34 87 06/25/16 08:06 97 Nasal Cannula 2.00 06/25/16 08:04 89 06/25/16 07:46 Nasal Cannula 2.00 06/25/16 07:46 89 06/25/16 06:00 90 06/25/16 05:00 86 06/25/16 04:00 88 06/25/16 04:00 97.8 93 24 146/80 91 06/25/16 03:00 92 06/25/16 02:00 78 06/25/16 01:00 90 06/25/16 00:00 98.1 93 24 133/68 94 06/25/16 00:00 88 06/24/16 23:00 108 06/24/16 22:00 102 06/24/16 21:00 106 06/24/16 20:00 97.8 107 24 146/71 92 06/24/16 20:00 106 06/24/16 19:00 103 06/24/16 19:00 92 Nasal Cannula 2.00 06/24/16 18:13 104 I/O 06/24/16 06/24/16 06/24/16 06/25/16 06/25/16 06/25/16 07:00 15:00 23:00 07:00 15:00 23:00 Intake Total 461 ml 1200 ml 0 ml Output Total 400 ml 1250 ml Balance 61 ml -50 ml 0 ml Intake Oral 461 ml 1200 ml IV Total 0 ml Output Urine Total 400 ml 1250 ml # Bowel Movements 1 Result Diagram: 06/21/16 0620 06/24/16 0503 Objective Remarks This is an elderly averagely built white male who is pale and not dyspneic at rest. EXTREMITIES: There is no clubbing. There is 1+ leg edema. HEENT: Head normocephalic. Pupils are reactive and equal. Tongue was moist. Throat was clear. Ears, no inflammation. NECK: Supple. No venous distension. No thyromegaly or lymphadenopathy. CHEST: Decreased breath sounds at the bases with wheezes over both lung saab.There are occ basilar crackles. HEART: The heart sounds are regular S1-S2 with no murmur. No S3. ABDOMEN: The abdomen is soft, nontender. No organomegaly. The bowel sounds are active. EXTREMITIES: Edema 1+ with diminished pulses and joint deformities of the extremities. SKIN: Cool, dry. NEUROLOGIC: He is alert and oriented. Moves all extremities.There are no deficits. Assessment and Plan Assessment and Plan IMPRESSION 1. Cellulitis of the right upper extremity resolving. 2. COPD with emphysema and chronic bronchitis 3. Coronary artery disease with stenting 4. Diabetes mellitus 5. History of hypertension. 6. Left Lung nodules Plan : 1. PT evaluation and ambulate. 2. Cont Nebs qid , duoneb. 3. O2 at 2L. 4. Continue lasix 40 mg Po daily. 5. Cont Prednisone 20 mg daily 6. Cardiac Evaluation. 7. CT chest in 2 mths. 8. GI evaluation . Liv Pinedo MD Jun 25, 2016 17:50
[2016-06-25] MEDS: ZOLPIDEM TARTRATE 5 MG TAB PO PRN (21:26)
[2016-06-26] VITALS (14 sets, daily range): BP systolic 129–139; BP diastolic 62–77; PULSE 81–110; RESP 18–20; TEMP 97.8–98.1; O2SAT 92–95
[2016-06-26] MEDS: HYPROMELLOSE 0.3 % OPTH GEL 10 GM (0.34 FL OZ) TUBE EACH EYE SCH ×4 (04:00→21:13)
[2016-06-26] MEDS: metroNIDAZOLE 500 MG TAB PO SCH ×3 (06:36→21:09)
[2016-06-26] MEDS: INSULIN ASPART SUPPLEMENTAL SCALE SQ SCH ×4 (06:38→21:00)
--- NOTE | 2016-06-26 07:56 | HHI.PR ---
Subjective Remarks Follow diabetes mellitus. Poor control secondary to patient's refusal to take Levemir and check fingerstick. He is tired of getting poked. Going for EGD. Discussed with RN Objective Vitals Vital Signs Date Time Temp Pulse Resp B/P Pulse Ox O2 Delivery O2 Flow Rate FiO2 06/26/16 04:00 98.0 97 18 129/68 92 06/26/16 04:00 98.0 97 18 129/68 92 06/26/16 03:29 98.0 97 18 129/68 92 06/26/16 03:00 98 06/26/16 02:00 108 06/26/16 01:00 90 06/26/16 00:00 98.1 108 18 136/70 94 06/26/16 00:00 100 06/25/16 23:00 102 06/25/16 22:00 112 06/25/16 21:00 104 06/25/16 20:24 95 Nasal Cannula 2.00 06/25/16 20:00 102 06/25/16 20:00 98.2 102 18 147/82 94 06/25/16 19:00 Nasal Cannula 2.00 06/25/16 19:00 104 06/25/16 18:10 104 06/25/16 16:48 104 06/25/16 16:48 98.0 90 18 138/82 96 06/25/16 15:57 102 06/25/16 14:38 98 06/25/16 13:11 98.8 110 18 136/80 96 06/25/16 13:01 90 06/25/16 12:53 90 06/25/16 11:31 102 06/25/16 10:42 98.0 101 18 144/82 94 06/25/16 10:40 101 06/25/16 09:34 87 06/25/16 08:06 97 Nasal Cannula 2.00 06/25/16 08:04 89 I/O 06/25/16 06/25/16 06/25/16 06/26/16 06/26/16 06/26/16 07:00 15:00 23:00 07:00 15:00 23:00 Intake Total 0 ml 960 ml 0 ml Output Total 1000 ml Balance 0 ml -40 ml 0 ml Intake Oral 960 ml 0 ml IV Total 0 ml 0 ml Output Urine Total 1000 ml # Voids 1 Result Diagram: 06/24/16 0503 Imaging Last Impressions Upper Extremity Ultrasound 06/20/16 0000 Signed Impressions: Service Date/Time: Monday, June 20, 2016 10:13 - CONCLUSION: Negative ultrasound with no evidence of abscess. Beau Croft MD Chest X-Ray 06/20/16 0000 Signed Impressions: Service Date/Time: Monday, June 20, 2016 12:44 - CONCLUSION: 1. Stable appearance with no evidence of pneumothorax. 2. Streaky opacity remains the left lung base with blunting of the costophrenic angle. 3. The known small masses seen on CT are not visualized. Beau Croft MD Barium Swallow X-Ray 06/20/16 0000 Signed Impressions: Service Date/Time: Monday, June 20, 2016 17:17 - CONCLUSION: Unremarkable exam with no evidence of stricture or obstruction. Beau Croft MD Chest CT 06/16/162028 Signed Impressions: Service Date/Time: Thursday, June 16, 2016 21:53 - CONCLUSION: 1. Two 1.3 cm irregular masses in the left lung. The one in the left upper lobe is cavitary. These could be further evaluated with a PET/FDG study to determine if they are metabolically active or not. Neoplastic change cannot be excluded. 2. Small 5 mm nodules seen in the left upper lobe and left lower lobe. These are nonspecific. 3. Minimal left pleural effusion. 4. Atherosclerotic change at the coronary arteries and aorta. Christoph Sandoval MD Elbow X-Ray 06/05/16 0000 Signed Impressions: Service Date/Time: June 17:02 - CONCLUSION: Minimal arthritic findings. Prominent soft tissue swelling of the olecranon process indicating possible olecranon bursitis. Matt Sapp MD Objective Remarks GENERAL: This is a well-nourished, well-developed patient, in no apparent distress on nasal cannula. No signs of dehydration HEENT: Eyes without signs of infection CARDIOVASCULAR: Regular rate and regular rhythm without murmurs, gallops, or rubs. RESPIRATORY: Decreased breath sounds with no expiratory wheezes GASTROINTESTINAL: Abdomen soft, non-tender, nondistended. Normal, active bowel sounds MUSCULOSKELETAL: Right hand with incised wound on the dorsal surface with no signs of infection- bilateral pedal edema improving. Nonfocal NEURO: Alert & Oriented x4 to person, place, time, situation. Moves all ext x4 Procedures Incision and drainage of right hand abscess Bronchoscopy A/P Problem List: (1) SVT (supraventricular tachycardia) ICD Code: I47.1 Status: Acute (2) Severe sepsis ICD Code: A41.9 Status: Acute (3) COPD with acute exacerbation ICD Code: J44.1 Status: Acute (4) Sepsis ICD Code: A41.9 Status: Acute (5) Cellulitis of right upper extremity ICD Code: L03.113 Status: Acute (6) Abscess of hand, right ICD Code: L02.511 Status: Acute (7) Olecranon bursitis, right elbow ICD Code: M70.21 Status: Acute Assessment and Plan - severe sepsis due to cellulitis of the right upper extremity/ right olecranon bursitis-stable venous doppler of the upper extremities with no DVT-XR of the right elbow with possible olecranon bursitis- US of the right upper extremity with a complex mass overlying the right third finger- s/p I/D of the right nand mass/fluid collection. S/p vancomycin culture positive for MRSA- keep the right hand elevated- continue pain control ID/hand surgery and ortho following; recommended conservative treatment of olecranon bursitis. -HAP. Stable status post Zosyn and Levaquin. Repeat chest x-ray stable. Culture with yeast, no need for treatment likely colonization per ID -Pulmonary nodules. Status post bronchoscopy negative cytology. Repeat CT in 2 months -SVT- due to sepsis- - dc'ed IV cardizem and continue po cardizem- cardiology consult appreciated. -ischemic cardiomyopathy with mild levation of troponin- s/p stent placement 2001, follow-up angiogram 2 weeks ago no intervention needed per patient; continue aspirin and lisinopril elevated troponin likely due to tachycardia/ sepsis. Restart asa echo with EF 35% cautious use of BB hx of COPD cardiology consulted 2/2 VT felt to be secondary to NAN discontinued amiodarone drip. Info from Dr Vora shows ECHO May 2016 with normal EF and cath from 2014 (Apr per pt) with stable CAD. Elevated trop likely from sepsis -acute on chronic systolic CHF- continue Lasix and monitor electrolytes. Improving edema. Repeat BMP and magnesium in 2 morning -COPD exacerbation-improving dyspnea on exertion continue steroids and neb treatment- will monitor. of note the patient is on home oxygen 2 L currently on 1.5 L -diabetes with hypoglycemic episode ;with no further hypoglycemia. Hyperglycemic secondary to steroids and noncompliance. Adjust Levemir accordingly.- accu-check with SSI. Patient again counseled regarding compliance he has been refusing fingersticks and Levemir -anemia of chronic disease- s/p PRBC transfusion with improved H/H- will monitor stool occult blood positive 1. Continue PPI and consulted GI for endoscopy today Pulmonary and cardiology as already cleared patient for endoscopy. -Hypertension. Improving with Lasix and Cardizem. Dry eyes. Eye lubricants. --C. difficile colitis. Improving no diarrhea Continue Lactinex and Flagyl. Monitor electrolytes DVT prophylaxis ; SCD's-no chemical prophylaxis for now due to anemia and Hemoccult-positive stool. -consulted PT/OT Discharge Planning Discharge when cleared by GI Jamey Ny MD Jun 26, 2016 07:56
--- NOTE | 2016-06-26 08:06 | PD.CARD.PN ---
Subjective Subjective Remarks Pt without CV complaints Objective Medications Current Medications Medications (Trade) Dose Ordered Sig/Mitchell Route Start Time Stop Time Status Last Admin (NS Flush) 2 ml UNSCH PRN IVF 06/05/16 12:30 06/25/16 09:13 (Tylenol) 650 mg Q4H PRN PO 06/05/16 15:45 06/21/16 01:23 ([place] 5-325 Mg) 1 tab Q4H PRN PO 06/05/16 15:45 06/25/16 17:34 (Dilaudid Pf Inj) 0.2 mg Q4H PRN IV PUSH 06/05/16 15:45 06/05/16 16:47 (Zofran Inj) 4 mg Q8HR PRN IV PUSH 06/05/16 15:45 06/17/16 13:26 (Aspirin Chew) 81 mg DAILY CHEW 06/06/16 09:00 06/25/16 09:13 (Symbicort 160-4.5 Inh) 2 puff BID INH 06/05/16 21:00 06/25/16 09:13 (Prinivil) 20 mg DAILY PO 06/06/16 09:00 06/25/16 09:12 (Clear Eyes Redness Relief 0.012% Opth Soln) 1 drop QID PRN EACH EYE 06/05/16 16:30 (D50w (Vial) Inj) 25 ml UNSCH PRN IV PUSH 06/05/16 15:45 06/10/16 06:34 (Glucagon Inj) 1 mg UNSCH PRN OTHER 06/05/16 15:45 (Xanax) 0.25 mg Q12HR PRN PO 06/06/16 13:00 06/25/16 21:26 (Ambien) 5 mg HS PRN PO 06/06/16 21:00 06/25/16 21:26 (Robitussin Ac 200-20 Mg/10 ml Liq) 10 ml Q6H PRN PO 06/10/16 10:00 06/25/16 13:08 (Colace) 100 mg BID PRN PO 06/11/16 10:30 06/13/16 12:38 (Levemir Inj) 8 units HS SQ 06/14/16 21:00 06/25/16 21:00 (Protonix) 40 mg DAILY PO 06/14/16 09:00 06/25/16 09:13 (Levemir Inj) 18 units DAILY SQ 06/19/16 09:00 06/24/16 09:00 (Cardizem Cd) 240 mg DAILY PO 06/19/16 09:00 06/25/16 09:13 (Genteal Severe Dry Eye Relief 0.3% Opth Gel) 2 drop Q6H EACH EYE 06/19/16 10:00 06/25/16 16:00 (Lactinex) 1 tab TID PO 06/21/16 13:00 06/25/16 17:34 (Lasix) 40 mg DAILY PO 06/22/16 09:00 06/25/16 09:13 (Flagyl) 500 mg Q8HR PO 06/22/16 14:00 07/06/16 13:59 06/26/16 06:36 (KCl) 20 meq DAILY PO 06/23/16 09:00 06/25/16 09:12 (K-Phos) 1,000 mg Q12HR PO 06/23/16 09:00 06/25/16 21:26 (Deltasone) 15 mg DAILY PO 06/24/16 09:00 06/25/16 09:12 Vital Signs / I&O Vital Signs Date Time Temp Pulse Resp B/P Pulse Ox O2 Delivery O2 Flow Rate FiO2 06/26/16 04:00 98.0 97 18 129/68 92 06/26/16 04:00 98.0 97 18 129/68 92 06/26/16 03:29 98.0 97 18 129/68 92 06/26/16 03:00 98 06/26/16 02:00 108 06/26/16 01:00 90 06/26/16 00:00 98.1 108 18 136/70 94 06/26/16 00:00 100 06/25/16 23:00 102 06/25/16 22:00 112 06/25/16 21:00 104 06/25/16 20:24 95 Nasal Cannula 2.00 06/25/16 20:00 102 06/25/16 20:00 98.2 102 18 147/82 94 06/25/16 19:00 Nasal Cannula 2.00 06/25/16 19:00 104 06/25/16 18:10 104 06/25/16 16:48 104 06/25/16 16:48 98.0 90 18 138/82 96 06/25/16 15:57 102 06/25/16 14:38 98 06/25/16 13:11 98.8 110 18 136/80 96 06/25/16 13:01 90 06/25/16 12:53 90 06/25/16 11:31 102 06/25/16 10:42 98.0 101 18 144/82 94 06/25/16 10:40 101 06/25/16 09:34 87 06/25/16 08:06 97 Nasal Cannula 2.00 06/25/16 08:04 89 I/O 06/25/16 06/25/16 06/25/16 06/26/16 06/26/16 06/26/16 07:00 15:00 23:00 07:00 15:00 23:00 Intake Total 0 ml 960 ml 0 ml Output Total 1000 ml Balance 0 ml -40 ml 0 ml Intake Oral 960 ml 0 ml IV Total 0 ml 0 ml Output Urine Total 1000 ml # Voids 1 Physical Exam GENERAL: Well developed, well nourished. No acute distress. HEENT: Jugular venous pressure is normal. CHEST: Lungs clear to auscultation bilaterally. Unlabored respiratory effort. CARDIAC: Regular rate and rhythm without S3, S4, or murmur. ABDOMEN: Soft, nontender, no hepatosplenomegaly. Bowel sounds present. EXTREMITIES: No clubbing, cyanosis, 1+ edema. Assessment and Plan Problem List: (1) VT (ventricular tachycardia) Assessment and Plan: 06/26 - 2 3 beats NSVT at night 06/25 no further episodes; off amio 06/23/16- episode of NSVT last night at 01:38 and 39. He was sleeping and gives history of stopping breathing at night => NAN most likely etiology (2) Cardiomyopathy Assessment and Plan: EF 30-35%, on GUANACO Info from Dr Vora show ECHO May 2016 with normal EF and cath from 2014 (Apr per pt) with stable CAD -decrease likely from overwhelming sepsis as his peak trop was 0.12 -med management for now, I will try BB with caution given severe COPD (3) CAD (coronary artery disease) (4) SVT (supraventricular tachycardia) (5) Sepsis (6) COPD with acute exacerbation (7) Cellulitis of right upper extremity Assessment and Plan Preop evaluation for GI- Pt tolerated bronch yesterday without difficulty and remains asymptomatic from a CV perspective. It is reasonable for GI to go forward with the procedures Shelia Tirado MD Jun 26, 2016 08:06
[2016-06-26] MEDS ORDERED: PILL SPLITTER OTHER PRN (08:30)
[2016-06-26] MEDS ORDERED: DILTIAZEM-CD 120 MG CAP ER PO SCH (09:00)
[2016-06-26] MEDS: RESP: ALBUTEROL 2.5 MG/IPRATROPIUM 0.5 MG NEB (SCH) NEB ×3 (09:15→15:42)
[2016-06-26] MEDS ORDERED: ALPR.25 PO (09:32)
[2016-06-26] MEDS ORDERED: AMBI5TAB PO (09:32)
[2016-06-26] MEDS ORDERED: HYDR-3516 PO (09:32)
[2016-06-26 10:46] LABS: BICARBONATE 31.1 MEQ/L (21.0-32.0); POTASSIUM 3.7 MEQ/L (3.5-5.1)
[2016-06-26] MEDS: PANTOPRAZOLE SOD 40 MG DELAYED RELEASE TAB PO SCH (10:53)
[2016-06-26] MEDS: FUROSEMIDE 40 MG TAB PO SCH (10:53)
[2016-06-26] MEDS: LACTOBACILLUS ACIDOPHILUS TAB PO SCH ×3 (10:53→16:40)
[2016-06-26] MEDS: POTASSIUM PHOSPHATE MONOBASIC 500 MG TAB PO SCH ×2 (10:53→21:09)
[2016-06-26] MEDS: predniSONE 20 MG TAB PO SCH (10:54)
[2016-06-26] MEDS: POTASSIUM CHLORIDE 20 MEQ CONTROLLED RELEASE TAB PO SCH (10:54)
[2016-06-26] MEDS: LISINOPRIL 20 MG TAB PO SCH (10:54)
[2016-06-26] MEDS: ASPIRIN 81 MG CHEW TAB CHEW SCH (10:54)
[2016-06-26] MEDS: METOPROLOL TARTRATE 25 MG TAB PO SCH ×2 (10:54→21:09)
[2016-06-26] MEDS: BUDESONIDE-FORMOTEROL 160/4.5 MCG INHALER INH SCH ×2 (10:55→21:12)
[2016-06-26] MEDS: INSULIN DETEMIR 100 UNITS/ML VIAL SQ SCH ×2 (10:55→21:00)
[2016-06-26] MEDS ORDERED: PROPOFOL 200 MG/20 ML AMP IV ONE (12:43)
--- NOTE | 2016-06-26 12:48 | HHI.GIFU ---
Subjective Remarks he is doing better, cleared by cardiology for EGD, no diarrhea Objective Vitals I&O Vital Signs Date Time Temp Pulse Resp B/P Pulse Ox O2 Delivery O2 Flow Rate FiO2 06/26/16 11:56 97.9 97 20 132/77 95 06/26/16 09:18 95 Nasal Cannula 2.00 06/26/16 08:36 97.9 97 20 132/77 94 06/26/16 06:38 Nasal Cannula 2.00 06/26/16 04:00 98.0 97 18 129/68 92 06/26/16 04:00 98.0 97 18 129/68 92 06/26/16 03:29 98.0 97 18 129/68 92 06/26/16 03:00 98 06/26/16 02:00 108 06/26/16 01:00 90 06/26/16 00:00 98.1 108 18 136/70 94 06/26/16 00:00 100 06/25/16 23:00 102 06/25/16 22:00 112 06/25/16 21:00 104 06/25/16 20:24 95 Nasal Cannula 2.00 06/25/16 20:00 102 06/25/16 20:00 98.2 102 18 147/82 94 06/25/16 19:00 Nasal Cannula 2.00 06/25/16 19:00 104 06/25/16 18:10 104 06/25/16 16:48 104 06/25/16 16:48 98.0 90 18 138/82 96 06/25/16 15:57 102 06/25/16 14:38 98 06/25/16 13:11 98.8 110 18 136/80 96 06/25/16 13:01 90 06/25/16 12:53 90 I/O 06/25/16 06/25/16 06/25/16 06/26/16 06/26/16 06/26/16 07:00 15:00 23:00 07:00 15:00 23:00 Intake Total 0 ml 960 ml 0 ml Output Total 1000 ml Balance 0 ml -40 ml 0 ml Intake Oral 960 ml 0 ml IV Total 0 ml 0 ml Output Urine Total 1000 ml # Voids 1 Laboratory Laboratory Tests Test 06/26/16 08:56 Sodium Level 143 Potassium Level 3.7 Chloride Level 104 Carbon Dioxide Level 31.1 Anion Gap 8 Blood Urea Nitrogen 33 Creatinine 0.97 Estimat Glomerular Filtration 75 Rate Random Glucose 75 Calcium Level 7.8 Phosphorus Level 2.5 Magnesium Level 2.0 Physical Exam HEENT: Normocephalic; atraumatic; no jaundice. CHEST: Resp even, non labored, diminished breath sounds, wheezes CARDIAC: RRR ABDOMEN: Soft, nondistended, nontender; no hepatosplenomegaly; bowel sounds are present in all four quadrants. EXTREMITIES: No clubbing, cyanosis. BLE 2+ pitting edema. SKIN: Multiple ecchymotic areas CONTENT DEVELOPER: No focal deficits; alert and oriented times three. Assessment and Plan Plan ASSESSMENT: - Anemia, Hemoccult (+) Stools. 9.3/27.8. Pt is absolutely refusing colonoscopy, but would like to have the EGD done. His respiratory status is improved from last week. On O2 3L via n/c (baseline 2), diminished breath sounds, sob with exertion. EGD +/- Dilatation cancelled secondary to run of Fiesta Frog. Cardiology following. Will plan for egd +/- dilatation once cleared by cardiology (refusing colonoscopy). - Reflux, coughing up food particles. States he has no issues swallowing but when he lays down he will later cough up food particles such as corn or beans. He has had EGD with dilatations in the past but cannot tell me if he has an esophageal diverticulum. Barium Swallow X-Ray (06/20/16)-----> Unremarkable exam with no evidence of stricture or obstruction. PPI - COPD/Patchy bibasilar infiltrates on cxr. CT thorax with 1. Two 1.3 cm irregular masses in the left lung. The one in the left upper lobe is cavitary. These could be further evaluated with a PET/FDG study to determine if they are metabolically active or not. Neoplastic change cannot be excluded. 2. Small 5 mm nodules seen in the left upper lobe and left lower lobe. These are nonspecific. 3. Minimal left pleural effusion. 4. Atherosclerotic change at the coronary arteries and aorta. Nebs. S/P Bronchoscopy with biopsy benign. Abx. - Nonsustained run of Fiesta Frog 2 nights ago, cardiology following. - Sepsis due to cellulitis of the rue, right olecranon bursitis. 06-26-16 patient was cleared by cardiology for EGD dilation, he refused colonoscopy, EGD showed sever gastritis Bx done, esophageal stricture dilation 17 mm C. diff being treated no diarrhea irma PLAN: - EGD +/- Dilatation - soft diet - continue PPI - Monitor hh - Transfuse as necessary - Supportive care - Refusing colonoscopy continue ABx for C diff. Suzan Danielson MD Jun 26, 2016 12:48
[2016-06-26] MEDS ORDERED: DO NOT ADM ANY ANTICOAGULANT DRUGS XX PRN (13:45)
--- NOTE | 2016-06-26 15:36 | HHI.DS ---
Discharge Summary Admission Date Jun 05, 2016 at 15:00 Discharge Date: Jun 26, 2016 Admitting Diagnosis svt, sepsis (1) SVT (supraventricular tachycardia) ICD Code: I47.1 Diagnosis: Principal (2) Severe sepsis ICD Code: A41.9 Diagnosis: Principal (3) COPD with acute exacerbation ICD Code: J44.1 (4) Sepsis ICD Code: A41.9 (5) Cellulitis of right upper extremity ICD Code: L03.113 (6) Abscess of hand, right ICD Code: L02.511 (7) Olecranon bursitis, right elbow ICD Code: M70.21 Procedures Incision and drainage of right hand abscess Bronchoscopy EGD with dilatation Brief History - From Admission patient is a 76 y/o male with history of CAD, diabetes who was [facility] evaluation. he says that he's had swelling and erythema of both upper extremities- however more on the right side- over the past four days. he says that this has been getting worse. he says that he thinks he was given antibiotic in snf. not sure if he had any fever. he denies any chest pain but had some sob which improved by the time of my examination. he denies any productive cough. he was found to have SVT at the time of presentation to ER for which he received Adenosine and Cardizem and then placed on cardizem drip. CBC/BMP: 06/26/16 0856 Significant Findings Laboratory Tests Test 06/24/16 06/26/16 05:03 08:56 Blood Urea Nitrogen 32 MG/DL (7-18) 33 MG/DL (7-18) Estimat Glomerular Filtration 72 ML/MIN (>89) 75 ML/MIN (>89) Rate Random Glucose 229 MG/DL (74-106) Calcium Level 7.7 MG/DL 7.8 MG/DL (8.5-10.1) (8.5-10.1) Imaging Last Impressions Upper Extremity Ultrasound 06/20/16 0000 Signed Impressions: Service Date/Time: Monday, June 20, 2016 10:13 - CONCLUSION: Negative ultrasound with no evidence of abscess. Beau Croft MD Chest X-Ray 06/20/16 0000 Signed Impressions: Service Date/Time: Monday, June 20, 2016 12:44 - CONCLUSION: 1. Stable appearance with no evidence of pneumothorax. 2. Streaky opacity remains the left lung base with blunting of the costophrenic angle. 3. The known small masses seen on CT are not visualized. Beau Croft MD Barium Swallow X-Ray 06/20/16 0000 Signed Impressions: Service Date/Time: Monday, June 20, 2016 17:17 - CONCLUSION: Unremarkable exam with no evidence of stricture or obstruction. Beau Croft MD Chest CT 06/16/162028 Signed Impressions: Service Date/Time: Thursday, June 16, 2016 21:53 - CONCLUSION: 1. Two 1.3 cm irregular masses in the left lung. The one in the left upper lobe is cavitary. These could be further evaluated with a PET/FDG study to determine if they are metabolically active or not. Neoplastic change cannot be excluded. 2. Small 5 mm nodules seen in the left upper lobe and left lower lobe. These are nonspecific. 3. Minimal left pleural effusion. 4. Atherosclerotic change at the coronary arteries and aorta. Christoph Sandoval MD Elbow X-Ray 06/05/16 0000 Signed Impressions: Service Date/Time: June 17:02 - CONCLUSION: Minimal arthritic findings. Prominent soft tissue swelling of the olecranon process indicating possible olecranon bursitis. Matt Sapp MD PE at Discharge GENERAL: This is a well-nourished, well-developed patient, in no apparent distress on nasal cannula. No signs of dehydration HEENT: Eyes without signs of infection CARDIOVASCULAR: Regular rate and regular rhythm without murmurs, gallops, or rubs. RESPIRATORY: Decreased breath sounds with no expiratory wheezes GASTROINTESTINAL: Abdomen soft, non-tender, nondistended. Normal, active bowel sounds MUSCULOSKELETAL: Right hand with incised wound on the dorsal surface with no signs of infection- bilateral pedal edema improving. Nonfocal NEURO: Alert & Oriented x4 to person, place, time, situation. Moves all ext x4 Hospital Course - severe sepsis due to cellulitis of the right upper extremity/ right olecranon bursitis-stable venous doppler of the upper extremities with no DVT-XR of the right elbow with possible olecranon bursitis- US of the right upper extremity with a complex mass overlying the right third finger- s/p I/D of the right nand mass/fluid collection. S/p vancomycin culture positive for MRSA- keep the right hand elevated- continue pain control ID/hand surgery and ortho following; recommended conservative treatment of olecranon bursitis. -HAP. Stable status post Zosyn and Levaquin. Repeat chest x-ray stable. Culture with yeast, no need for treatment likely colonization per ID -Pulmonary nodules. Status post bronchoscopy negative cytology. Repeat CT in 2 months -SVT- due to sepsis- - dc'ed IV cardizem and continue po cardizem- cardiology consult appreciated. -ischemic cardiomyopathy with mild levation of troponin- s/p stent placement 2001, follow-up angiogram 2 weeks ago no intervention needed per patient; continue aspirin and lisinopril elevated troponin likely due to tachycardia/ sepsis. Restart asa if ok with GI echo with EF 35% cautious use of BB hx of COPD cardiology consulted 2/2 VT felt to be secondary to NAN discontinued amiodarone drip. Info from Dr Vora shows ECHO May 2016 with normal EF and cath from 2014 (Apr per pt) with stable CAD. Elevated trop likely from sepsis -acute on chronic systolic CHF- continue Lasix and monitor electrolytes. Improving edema. Repeat BMP and magnesium in 2 morning -COPD exacerbation-improving dyspnea on exertion continue steroids and neb treatment- will monitor. of note the patient is on home oxygen 2 L currently on 1.5 L -diabetes with hypoglycemic episode ;with no further hypoglycemia. Hyperglycemic secondary to steroids and noncompliance. Adjust Levemir accordingly.- accu-check with SSI. Patient again counseled regarding compliance he has been refusing fingersticks and Levemir -anemia of chronic disease- s/p PRBC transfusion with improved H/H- will monitor stool occult blood positive 1. Continue PPI and consulted GI for endoscopy today Pulmonary and cardiology as already cleared patient for endoscopy. Pt refused Cscope -Hypertension. Improving with Lasix and Cardizem. Dry eyes. Eye lubricants. --C. difficile colitis. Improving no diarrhea Continue Lactinex and Flagyl. Monitor electrolytes DVT prophylaxis ; SCD's-no chemical prophylaxis for now due to anemia and Hemoccult-positive stool. -consulted PT/OT Pt Condition on Discharge: Stable Discharge Disposition: Discharge to SNF Discharge Time: > 30 minutes Discharge Instructions DIET: Follow Instructions for: Heart Healthy Diet, Diabetic Diet, Soft Diet Activities you can perform: Regular-No Restrictions Activities to Avoid: Driving Follow up Referrals: Cardiology - 1 Week Gastroenterology PCP Follow-up - 2-3 Days New Orders: BASIC METABOLIC PROF - 06/30/16 MAGNESIUM (MG) - 06/30/16 PHOSPHORUS (PO4) - 06/30/16 New Medications: Alprazolam (Xanax) 0.25 Mg Tab 0.25 MG PO Q12HR PRN ANXIETY #6 TAB Diltiazem CD 24 HR (Cardizem CD 24 HR) 120 Mg Caper 120 MG PO DAILY Regulate Heart Beat #30 CAP Furosemide (Furosemide) 40 Mg Tab 40 MG PO DAILY Prevent Heart Failure #30 TAB Guaifenesin-Codeine Liq (Guaifenesin-Codeine Liq) 100-10 Mg/5 Ml Soln 10 ML PO Q6H PRN COUGH #120 ML Hydrocodone-Acetaminophen (Hydrocodone-Acetaminophen) 5-325 mg Tab 1 TAB PO Q6HR PRN PAIN 6-10 #12 TAB Insulin Detemir Inj (Levemir Inj) 1,000 unit/ 10 ML Vial 18 UNITS SQ DAILY Blood Sugar Management #30 INJECTION Ipratropium-Albuterol Neb (Duoneb) 0.5-2.5 Mg/3 Ml Neb 1 AMPULE NEB QID NEB Breathing Treatment #120 ML Lactobacillus Acidophilus (Acidophilus/l-Sporogenes) 1 Tab Tab 1 TAB PO TID Bowel Management #30 TAB Metoprolol Tartrate (Metoprolol Tartrate) 25 Mg Tab 12.5 MG PO Q12HR Regulate Heart Beat #60 TAB Metronidazole (Flagyl) 500 Mg Tab 500 MG PO Q8HR Infection #30 TAB Pantoprazole (Pantoprazole) 40 Mg Tab 40 MG PO DAILY Manage Heartburn #30 TAB Potassium Chloride Microencaps (Potassium Chloride Microencaps) 20 Meq Tab 20 MEQ PO DAILY Electrolyte Replacement #14 TAB Potassium Phosphate Monobasic (K-Phos) 500 Mg Tab 1000 MG PO Q12HR Electrolyte Replacement #28 TAB Prednisone (Prednisone) 20 Mg Tab 10 MG PO DAILY Control Inflammation #7 TAB Zolpidem (Ambien) 5 Mg Tab 5 MG PO HS PRN SLEEP #3 TAB Continued Medications: Albuterol 6.7 GM Inh (Proventil Hfa 6.7 GM Inh) 90 Mcg/Act Aer 2 PUFF INH QID COPD #1 Ref 0 INHALER Albuterol Neb (Albuterol Neb) 2.5 Mg/3 Ml Neb 2.5 MG NEB Q6HR PRN SHORTNESS OF BREATH Ref 0 NEBULE Aspirin (Aspirin Children's) 81 Mg Chew 81 MG CHEW DAILY PROPHYLAXIS CVA/N[place] Ref 0 TAB Budesonide-Formoterol Inh (Symbicort Inh) 160-4.5 Mcg/Act Aero 2 PUFF INH BID COPD #1 Ref 0 INHALER Insulin Aspart Inj (Novolog Inj) 1,000 Unit/10 Ml Vial 2-6 UNITS SQ ACHS Max dose at bedtime ( ) units; sugars less than 70,(0) units; sugars 161-220,(2) units; sugars 221-280,(3) units; sugars 281-340,(4) units; sugars 341-400,(5) units; sugars greater than 401+,(6)units Blood Sugar Management #10 Ref 0 ML Insulin Detemir Inj (Levemir Flextouch Pen Inj) 300 unit/3 ML Pen 8 UNITS SQ HS TYPE 1 DM Ref 0 PEN Lisinopril (Lisinopril) 20 Mg Tab 20 MG PO DAILY HTN #30 Ref 0 TAB Tiotropium Inh (Spiriva Handihaler) 18 Mcg Cap 18 MCG INH DAILY 1 capsule = 18 mcg PREVENT BRONCHOSPASM #30 Ref 0 CAP Jamey Ny MD Jun 26, 2016 15:36
--- NOTE | 2016-06-26 17:48 | HHI.PR ---
Subjective Remarks C/O some SOB with exertion. .Went for GI procedure Serena on Bronch washings . Cytology negative. Objective Vital Signs Date Time Temp Pulse Resp B/P Pulse Ox O2 Delivery O2 Flow Rate FiO2 06/26/16 17:16 98.0 95 18 131/62 95 06/26/16 15:00 81 06/26/16 13:10 81 16 146/69 95 06/26/16 13:00 81 18 135/70 93 06/26/16 12:51 98.4 83 18 128/69 93 06/26/16 11:56 97.9 97 20 132/77 95 06/26/16 09:18 95 Nasal Cannula 2.00 06/26/16 08:36 97.9 97 20 132/77 94 06/26/16 07:00 84 06/26/16 06:38 Nasal Cannula 2.00 06/26/16 04:00 98.0 97 18 129/68 92 06/26/16 04:00 98.0 97 18 129/68 92 06/26/16 03:29 98.0 97 18 129/68 92 06/26/16 03:00 98 06/26/16 02:00 108 06/26/16 01:00 90 06/26/16 00:00 98.1 108 18 136/70 94 06/26/16 00:00 100 06/25/16 23:00 102 06/25/16 22:00 112 06/25/16 21:00 104 06/25/16 20:24 95 Nasal Cannula 2.00 06/25/16 20:00 102 06/25/16 20:00 98.2 102 18 147/82 94 06/25/16 19:00 Nasal Cannula 2.00 06/25/16 19:00 104 06/25/16 18:10 104 I/O 06/25/16 06/25/16 06/25/16 06/26/16 06/26/16 06/26/16 07:00 15:00 23:00 07:00 15:00 23:00 Intake Total 0 ml 960 ml 0 ml 500 ml Output Total 1000 ml Balance 0 ml -40 ml 0 ml 500 ml Intake Oral 960 ml 0 ml IV Total 0 ml 0 ml Other 500 ml Output Urine Total 1000 ml # Voids 1 2 # Bowel Movements 1 Result Diagram: 06/26/16 0856 Objective Remarks This is an elderly averagely built white male who is pale and not dyspneic at rest. EXTREMITIES: There is no clubbing. There is 1+ leg edema. HEENT: Head normocephalic. Pupils are reactive and equal. Tongue was moist. Throat was clear. Ears, no inflammation. NECK: Supple. No venous distension. No thyromegaly or lymphadenopathy. CHEST: Decreased breath sounds at the bases with wheezes over both lung saab.There are few basilar crackles. HEART: The heart sounds are regular S1-S2 with no murmur. No S3. ABDOMEN: The abdomen is soft, nontender. No organomegaly. The bowel sounds are active. EXTREMITIES: Edema 1+ with diminished pulses and joint deformities of the extremities. SKIN: Cool, dry. NEUROLOGIC: He is alert and oriented. Moves all extremities.There are no deficits. Assessment and Plan Assessment and Plan IMPRESSION 1. Cellulitis of the right upper extremity resolving. 2. COPD with emphysema and chronic bronchitis 3. Coronary artery disease with stenting 4. Diabetes mellitus 5. History of hypertension. 6. Left Lung nodules Plan : 1. PT evaluation and ambulate. 2. Cont Nebs qid , duoneb. 3. O2 at 2L. 4. Continue lasix 40 mg Po daily. 5. Taper Prednisone to 15 mg daily 6. BMP in am 7. CT chest in 2 mths. 8. GI evaluation . Liv Pinedo MD Jun 26, 2016 17:48
[2016-06-26] MEDS: guaiFENesin/CODEINE SYRUP 200 MG/20 MG/10 ML CUP PO PRN (21:09)
[2016-06-26] MEDS: ZOLPIDEM TARTRATE 5 MG TAB PO PRN (21:19)
[2016-06-27] VITALS (9 sets, daily range): BP systolic 108–151; BP diastolic 61–72; PULSE 80–109; RESP 17–19; TEMP 96.6–98.8; O2SAT 92–97
[2016-06-27] MEDS: ALPRAZolam 0.25 MG TAB PO PRN ×2 (03:04→16:58)
[2016-06-27] MEDS: HYPROMELLOSE 0.3 % OPTH GEL 10 GM (0.34 FL OZ) TUBE EACH EYE SCH ×5 (03:05→22:41)
[2016-06-27] MEDS: metroNIDAZOLE 500 MG TAB PO SCH ×3 (06:26→22:28)
[2016-06-27] MEDS: ACETAMINOPHEN/HYDROcodone 325 MG/5 MG TAB PO PRN ×3 (06:26→22:29)
[2016-06-27] MEDS: INSULIN ASPART SUPPLEMENTAL SCALE SQ SCH ×4 (06:31→21:00)
--- NOTE | 2016-06-27 07:27 | PD.CARD.PN ---
Subjective Subjective Remarks Pt without CV complaints Objective Medications Current Medications Medications (Trade) Dose Ordered Sig/Mitchell Route Start Time Stop Time Status Last Admin (NS Flush) 2 ml UNSCH PRN IVF 06/05/16 12:30 06/25/16 09:13 (Tylenol) 650 mg Q4H PRN PO 06/05/16 15:45 06/21/16 01:23 ([place] 5-325 Mg) 1 tab Q4H PRN PO 06/05/16 15:45 06/27/16 06:26 (Dilaudid Pf Inj) 0.2 mg Q4H PRN IV PUSH 06/05/16 15:45 06/05/16 16:47 (Zofran Inj) 4 mg Q8HR PRN IV PUSH 06/05/16 15:45 06/17/16 13:26 (Aspirin Chew) 81 mg DAILY CHEW 06/06/16 09:00 06/26/16 10:54 (Symbicort 160-4.5 Inh) 2 puff BID INH 06/05/16 21:00 06/26/16 21:12 (Prinivil) 20 mg DAILY PO 06/06/16 09:00 06/26/16 10:54 (Clear Eyes Redness Relief 0.012% Opth Soln) 1 drop QID PRN EACH EYE 06/05/16 16:30 (D50w (Vial) Inj) 25 ml UNSCH PRN IV PUSH 06/05/16 15:45 06/10/16 06:34 (Glucagon Inj) 1 mg UNSCH PRN OTHER 06/05/16 15:45 (Xanax) 0.25 mg Q12HR PRN PO 06/06/16 13:00 06/27/16 03:04 (Ambien) 5 mg HS PRN PO 06/06/16 21:00 06/26/16 21:19 (Robitussin Ac 200-20 Mg/10 ml Liq) 10 ml Q6H PRN PO 06/10/16 10:00 06/26/16 21:09 (Colace) 100 mg BID PRN PO 06/11/16 10:30 06/13/16 12:38 (Levemir Inj) 8 units HS SQ 06/14/16 21:00 06/25/16 21:00 (Protonix) 40 mg DAILY PO 06/14/16 09:00 06/26/16 10:53 (Levemir Inj) 18 units DAILY SQ 06/19/16 09:00 06/26/16 10:55 (Genteal Severe Dry Eye Relief 0.3% Opth Gel) 2 drop Q6H EACH EYE 06/19/16 10:00 06/26/16 21:13 (Lactinex) 1 tab TID PO 06/21/16 13:00 06/26/16 16:40 (Lasix) 40 mg DAILY PO 06/22/16 09:00 06/26/16 10:53 (Flagyl) 500 mg Q8HR PO 06/22/16 14:00 07/06/16 13:59 06/27/16 06:26 (KCl) 20 meq DAILY PO 06/23/16 09:00 06/26/16 10:54 (K-Phos) 1,000 mg Q12HR PO 06/23/16 09:00 06/26/16 21:09 (Deltasone) 15 mg DAILY PO 06/24/16 09:00 06/26/16 10:54 (Cardizem Cd) 120 mg DAILY PO 06/26/16 09:00 06/26/16 10:54 (Lopressor) 12.5 mg Q12HR PO 06/26/16 09:00 06/26/16 21:09 (Pill Splitter) 1 ea UNSCH PRN OTHER 06/26/16 08:30 Miscellaneous Information ALL NURSING DEPARTME... UNSCH PRN XX 06/26/16 13:45 06/27/16 13:44 Vital Signs / I&O Vital Signs Date Time Temp Pulse Resp B/P Pulse Ox O2 Delivery O2 Flow Rate FiO2 06/27/16 05:48 98.6 97 18 130/62 97 06/27/16 00:10 98.8 109 18 130/71 94 06/26/16 23:30 87 06/26/16 20:07 97.8 110 18 139/67 93 06/26/16 17:16 98.0 95 18 131/62 95 06/26/16 15:00 81 06/26/16 15:00 81 06/26/16 13:10 81 16 146/69 95 06/26/16 13:00 81 18 135/70 93 06/26/16 12:51 98.4 83 18 128/69 93 06/26/16 11:56 97.9 97 20 132/77 95 06/26/16 09:18 95 Nasal Cannula 2.00 06/26/16 08:36 97.9 97 20 132/77 94 I/O 06/26/16 06/26/16 06/26/16 06/27/16 06/27/16 06/27/16 07:00 15:00 23:00 07:00 15:00 23:00 Intake Total 0 ml 500 ml 240 ml 120 ml Output Total 400 ml Balance 0 ml 500 ml 240 ml -280 ml Intake Oral 0 ml 240 ml 120 ml Other 500 ml Output Urine Total 400 ml # Voids 1 2 2 # Bowel Movements 1 1 1 Physical Exam GENERAL: Well developed, well nourished. No acute distress. HEENT: Jugular venous pressure is normal. CHEST: Lungs clear to auscultation bilaterally. Unlabored respiratory effort. CARDIAC: Regular rate and rhythm without S3, S4, or murmur. ABDOMEN: Soft, nontender, no hepatosplenomegaly. Bowel sounds present. EXTREMITIES: No clubbing, cyanosis, 1+ edema. Laboratory Laboratory Tests Test 06/26/16 08:56 Sodium Level 143 MEQ/L Potassium Level 3.7 MEQ/L Chloride Level 104 MEQ/L Carbon Dioxide Level 31.1 MEQ/L Anion Gap 8 MEQ/L Blood Urea Nitrogen 33 MG/DL Creatinine 0.97 MG/DL Estimat Glomerular Filtration 75 ML/MIN Rate Random Glucose 75 MG/DL Calcium Level 7.8 MG/DL Phosphorus Level 2.5 MG/DL Magnesium Level 2.0 MG/DL Assessment and Plan Problem List: (1) VT (ventricular tachycardia) Assessment and Plan: 06/27 -no further episodes 06/26 - 2 3 beats NSVT at night 06/25 no further episodes; off amio 06/23/16- episode of NSVT last night at 01:38 and 39. He was sleeping and gives history of stopping breathing at night => NAN most likely etiology (2) Cardiomyopathy Assessment and Plan: EF 30-35%, on GUANACO 06/27- stop cardizem and increase metoprolol, 06/26- Info from Dr Vora show ECHO May 2016 with normal EF and cath from 2014 (Apr per pt) with stable CAD -decrease likely from overwhelming sepsis as his peak trop was 0.12 -med management for now, I will try BB with caution given severe COPD (3) CAD (coronary artery disease) Assessment and Plan: seemingly stable (4) SVT (supraventricular tachycardia) (5) Sepsis (6) COPD with acute exacerbation (7) Cellulitis of right upper extremity Assessment and Plan Preop evaluation for GI- Pt tolerated bronch yesterday without difficulty and remains asymptomatic from a CV perspective. It is reasonable for GI to go forward with the procedures Shelia Tirado MD Jun 27, 2016 07:27
[2016-06-27] MEDS: INSULIN DETEMIR 100 UNITS/ML VIAL SQ SCH ×2 (08:39→22:30)
[2016-06-27] MEDS: LACTOBACILLUS ACIDOPHILUS TAB PO SCH ×3 (08:40→16:58)
[2016-06-27] MEDS: POTASSIUM PHOSPHATE MONOBASIC 500 MG TAB PO SCH ×2 (08:40→22:27)
[2016-06-27] MEDS: METOPROLOL TARTRATE 50 MG TAB PO SCH ×2 (08:40→22:27)
[2016-06-27] MEDS: FUROSEMIDE 40 MG TAB PO SCH (08:40)
[2016-06-27] MEDS: ASPIRIN 81 MG CHEW TAB CHEW SCH (08:40)
[2016-06-27] MEDS: BUDESONIDE-FORMOTEROL 160/4.5 MCG INHALER INH SCH ×2 (08:41→22:40)
[2016-06-27] MEDS: POTASSIUM CHLORIDE 20 MEQ CONTROLLED RELEASE TAB PO SCH (08:41)
[2016-06-27] MEDS: LISINOPRIL 20 MG TAB PO SCH (08:41)
[2016-06-27] MEDS: predniSONE 20 MG TAB PO SCH (08:41)
[2016-06-27] MEDS: PANTOPRAZOLE SOD 40 MG DELAYED RELEASE TAB PO SCH (08:41)
--- NOTE | 2016-06-27 09:58 | HHI.PR ---
Subjective Remarks Follow-up dyspnea. Tolerating 1 L nasal cannula. He still having dyspnea on exertion stating he is not ready to leave unless cardiology will perform intervention. Patient advised cardiology has recommended medical management. 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 Discussed with RN Objective Vitals Vital Signs Date Time Temp Pulse Resp B/P Pulse Ox O2 Delivery O2 Flow Rate FiO2 06/27/16 08:42 93 21 06/27/16 08:18 96.8 94 18 151/72 92 06/27/16 08:00 101 06/27/16 05:48 98.6 97 18 130/62 97 06/27/16 00:56 Nasal Cannula 2.00 06/27/16 00:10 98.8 109 18 130/71 94 06/26/16 23:30 87 06/26/16 20:07 97.8 110 18 139/67 93 06/26/16 17:16 98.0 95 18 131/62 95 06/26/16 15:00 81 06/26/16 15:00 81 06/26/16 13:10 81 16 146/69 95 06/26/16 13:00 81 18 135/70 93 06/26/16 12:51 98.4 83 18 128/69 93 06/26/16 11:56 97.9 97 20 132/77 95 I/O 06/26/16 06/26/16 06/26/16 06/27/16 06/27/16 06/27/16 07:00 15:00 23:00 07:00 15:00 23:00 Intake Total 0 ml 500 ml 240 ml 120 ml Output Total 400 ml Balance 0 ml 500 ml 240 ml -280 ml Intake Oral 0 ml 240 ml 120 ml Other 500 ml Output Urine Total 400 ml # Voids 1 2 2 # Bowel Movements 1 1 1 Result Diagram: 06/26/16 0856 Imaging Last Impressions Upper Extremity Ultrasound 06/20/16 0000 Signed Impressions: Service Date/Time: Monday, June 20, 2016 10:13 - CONCLUSION: Negative ultrasound with no evidence of abscess. Beau Croft MD Chest X-Ray 06/20/16 0000 Signed Impressions: Service Date/Time: Monday, June 20, 2016 12:44 - CONCLUSION: 1. Stable appearance with no evidence of pneumothorax. 2. Streaky opacity remains the left lung base with blunting of the costophrenic angle. 3. The known small masses seen on CT are not visualized. Beau Croft MD Barium Swallow X-Ray 06/20/16 0000 Signed Impressions: Service Date/Time: Monday, June 20, 2016 17:17 - CONCLUSION: Unremarkable exam with no evidence of stricture or obstruction. Beau Croft MD Chest CT 06/16/162028 Signed Impressions: Service Date/Time: Thursday, June 16, 2016 21:53 - CONCLUSION: 1. Two 1.3 cm irregular masses in the left lung. The one in the left upper lobe is cavitary. These could be further evaluated with a PET/FDG study to determine if they are metabolically active or not. Neoplastic change cannot be excluded. 2. Small 5 mm nodules seen in the left upper lobe and left lower lobe. These are nonspecific. 3. Minimal left pleural effusion. 4. Atherosclerotic change at the coronary arteries and aorta. Christoph Sandoval MD Elbow X-Ray 06/05/16 0000 Signed Impressions: Service Date/Time: June 17:02 - CONCLUSION: Minimal arthritic findings. Prominent soft tissue swelling of the olecranon process indicating possible olecranon bursitis. Matt Sapp MD Objective Remarks GENERAL: This is a well-nourished, well-developed patient, in no apparent distress on nasal cannula. No signs of dehydration HEENT: Eyes without signs of infection CARDIOVASCULAR: Regular rate and regular rhythm without murmurs, gallops, or rubs. RESPIRATORY: Decreased breath sounds with no expiratory wheezes GASTROINTESTINAL: Abdomen soft, non-tender, nondistended. Normal, active bowel sounds MUSCULOSKELETAL: Right hand with incised wound on the dorsal surface with no signs of infection- bilateral pedal edema improving. Nonfocal NEURO: Alert & Oriented x4 to person, place, time, situation. Moves all ext x4 Procedures Incision and drainage of right hand abscess Bronchoscopy EGD with dilatation A/P Problem List: (1) SVT (supraventricular tachycardia) ICD Code: I47.1 Status: Acute (2) Severe sepsis ICD Code: A41.9 Status: Acute (3) COPD with acute exacerbation ICD Code: J44.1 Status: Acute (4) Sepsis ICD Code: A41.9 Status: Acute (5) Cellulitis of right upper extremity ICD Code: L03.113 Status: Acute (6) Abscess of hand, right ICD Code: L02.511 Status: Acute (7) Olecranon bursitis, right elbow ICD Code: M70.21 Status: Acute Assessment and Plan - severe sepsis due to cellulitis of the right upper extremity/ right olecranon bursitis resolved venous doppler of the upper extremities with no DVT-XR of the right elbow with possible olecranon bursitis- US of the right upper extremity with a complex mass overlying the right third finger- s/p I/D of the right nand mass/fluid collection. S/p vancomycin culture positive for MRSA- keep the right hand elevated- continue pain control ID/hand surgery and ortho following; recommended conservative treatment of olecranon bursitis. -HAP. Stable status post Zosyn and Levaquin. Repeat chest x-ray stable. Bronchial washings culture with Aspergillus niger, treatment per ID -Pulmonary nodules. Status post bronchoscopy negative cytology. Repeat CT in 2 months -SVT- due to sepsis-on beta rosy dc'ed IV cardizem and po cardizem- cardiology consult appreciated. -ischemic cardiomyopathy with mild levation of troponin- s/p stent placement 2001, follow-up angiogram 2 weeks ago no intervention needed per patient; continue aspirin and lisinopril elevated troponin likely due to tachycardia/ sepsis. Restart asa echo with EF 35% cautious use of BB hx of COPD cardiology reconsulted 2/2 VT felt to be secondary to NAN discontinued amiodarone drip. Info from Dr Vora shows ECHO May 2016 with normal EF and cath from 2014 (Apr per pt) with stable CAD. Elevated trop likely from sepsis -acute on chronic systolic CHF- continue Lasix and monitor electrolytes. Improving edema. Repeat BMP and magnesium as needed -COPD exacerbation-improving dyspnea on exertion continue steroids and neb treatment- will monitor. of note the patient is on home oxygen 2 L currently on 1 L -diabetes with hypoglycemic episode ;with no further hypoglycemia. Hyperglycemic secondary to steroids and noncompliance(refusing fingersticks and Levemir because he does not want to be poked). Adjust Levemir accordingly.- accu-check with SSI. Patient again counseled regarding compliance -anemia of chronic disease- s/p PRBC transfusion with improved H/H- will monitor stool occult blood positive 1. Continue PPI and consulted GI for endoscopy which showed gastritis and esophageal ring status post dilatations and biopsy. Avoid follow-up pathology. 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 -Hypertension. Improving with Lasix and beta rosy status post Cardizem. Dry eyes. Eye lubricants. --C. difficile colitis. Improving no diarrhea Continue Lactinex and Flagyl until July 06. Monitor electrolytes DVT prophylaxis ; SCD's and subcutaneous heparin -consulted PT/OT Discharge Planning Needs rehabilitation but no accepting facility because of criminal history. He might need to be discharged to home when cleared by PT Jamey Ny MD Jun 27, 2016 09:58
[2016-06-27] MEDS: HEPARIN SODIUM - SQ 10,000 UNITS/ML VIAL SQ SCH ×2 (12:46→22:28)
--- NOTE | 2016-06-27 12:54 | HHI.PR ---
Subjective Remarks C/O some SOB with exertion. Has Aspergillus Niger on Bronchoscopy washings . Cytology negative. Objective Vital Signs Date Time Temp Pulse Resp B/P Pulse Ox O2 Delivery O2 Flow Rate FiO2 06/27/16 12:14 97.0 80 18 132/66 94 06/27/16 08:42 93 21 06/27/16 08:18 96.8 94 18 151/72 92 06/27/16 08:00 101 06/27/16 07:00 Nasal Cannula 2.00 06/27/16 05:48 98.6 97 18 130/62 97 06/27/16 00:56 Nasal Cannula 2.00 06/27/16 00:10 98.8 109 18 130/71 94 06/26/16 23:30 87 06/26/16 20:07 97.8 110 18 139/67 93 06/26/16 17:16 98.0 95 18 131/62 95 06/26/16 15:00 81 06/26/16 15:00 81 06/26/16 13:10 81 16 146/69 95 06/26/16 13:00 81 18 135/70 93 I/O 06/26/16 06/26/16 06/26/16 06/27/16 06/27/16 06/27/16 07:00 15:00 23:00 07:00 15:00 23:00 Intake Total 0 ml 500 ml 240 ml 120 ml Output Total 400 ml Balance 0 ml 500 ml 240 ml -280 ml Intake Oral 0 ml 240 ml 120 ml Other 500 ml Output Urine Total 400 ml # Voids 1 2 2 # Bowel Movements 1 1 1 Result Diagram: 06/26/16 0856 Objective Remarks This is an elderly averagely built white male who is pale and not dyspneic at rest. EXTREMITIES: There is no clubbing. There is 1+ leg edema. HEENT: Head normocephalic. Pupils are reactive and equal. Tongue was moist. Throat was clear. Ears, no inflammation. NECK: Supple. No venous distension. No thyromegaly or lymphadenopathy. CHEST: Decreased breath sounds at the bases with wheezes over both lung saab. HEART: The heart sounds are regular S1-S2 with no murmur. No S3. ABDOMEN: The abdomen is soft, nontender. No organomegaly. The bowel sounds are active. EXTREMITIES: Edema 1+ with diminished pulses and joint deformities of the extremities. SKIN: Cool, dry. NEUROLOGIC: He is alert and oriented. Moves all extremities.There are no deficits. Assessment and Plan Assessment and Plan IMPRESSION 1. Cellulitis of the right upper extremity resolving. 2. COPD with emphysema and chronic bronchitis 3. Coronary artery disease with stenting 4. Diabetes mellitus 5. History of hypertension. 6. Left Lung nodules Plan : 1. PT evaluation and ambulate. 2. Cont Nebs qid , duoneb. 3. O2 at 2L. 4. Continue lasix 40 mg Po daily. 5. Taper Prednisone to 10 mg daily 6. Voriconazole PO per Dr Velez 7. CT chest in 2 mths. 8. CMP in am Liv Pinedo MD Jun 27, 2016 12:54
[2016-06-27] MEDS ORDERED: Custom Consult Pharmacy 1 EA OTHER SCH (14:00)
--- NOTE | 2016-06-27 15:00 | HHI.GIFU ---
Subjective Remarks Pt resting comfortably in bed. No n/v, abd pain, bloody stool. Had semi formed BM this morning. Appetite good, no issues swallowing or keeping food down. (Joseline Polanco) Objective Vitals I&O Vital Signs Date Time Temp Pulse Resp B/P Pulse Ox O2 Delivery O2 Flow Rate FiO2 06/27/16 12:14 97.0 80 18 132/66 94 06/27/16 08:42 93 21 06/27/16 08:18 96.8 94 18 151/72 92 06/27/16 08:00 101 06/27/16 07:00 Nasal Cannula 2.00 06/27/16 05:48 98.6 97 18 130/62 97 06/27/16 00:56 Nasal Cannula 2.00 06/27/16 00:10 98.8 109 18 130/71 94 06/26/16 23:30 87 06/26/16 20:07 97.8 110 18 139/67 93 06/26/16 17:16 98.0 95 18 131/62 95 06/26/16 15:00 81 06/26/16 15:00 81 I/O 06/26/16 06/26/16 06/26/16 06/27/16 06/27/16 06/27/16 07:00 15:00 23:00 07:00 15:00 23:00 Intake Total 0 ml 500 ml 240 ml 120 ml 480 ml Output Total 400 ml 850 ml Balance 0 ml 500 ml 240 ml -280 ml -370 ml Intake Oral 0 ml 240 ml 120 ml 480 ml Other 500 ml Output Urine Total 400 ml 850 ml # Voids 1 2 2 # Bowel Movements 1 1 1 1 Imaging Last Impressions Upper Extremity Ultrasound 06/20/16 0000 Signed Impressions: Service Date/Time: Monday, June 20, 2016 10:13 - CONCLUSION: Negative ultrasound with no evidence of abscess. Beau Croft MD Chest X-Ray 06/20/16 0000 Signed Impressions: Service Date/Time: Monday, June 20, 2016 12:44 - CONCLUSION: 1. Stable appearance with no evidence of pneumothorax. 2. Streaky opacity remains the left lung base with blunting of the costophrenic angle. 3. The known small masses seen on CT are not visualized. Beau Croft MD Barium Swallow X-Ray 06/20/16 0000 Signed Impressions: Service Date/Time: Monday, June 20, 2016 17:17 - CONCLUSION: Unremarkable exam with no evidence of stricture or obstruction. Beau Croft MD Chest CT 06/16/162028 Signed Impressions: Service Date/Time: Thursday, June 16, 2016 21:53 - CONCLUSION: 1. Two 1.3 cm irregular masses in the left lung. The one in the left upper lobe is cavitary. These could be further evaluated with a PET/FDG study to determine if they are metabolically active or not. Neoplastic change cannot be excluded. 2. Small 5 mm nodules seen in the left upper lobe and left lower lobe. These are nonspecific. 3. Minimal left pleural effusion. 4. Atherosclerotic change at the coronary arteries and aorta. Christoph Sandoval MD Elbow X-Ray 06/05/16 0000 Signed Impressions: Service Date/Time: June 17:02 - CONCLUSION: Minimal arthritic findings. Prominent soft tissue swelling of the olecranon process indicating possible olecranon bursitis. Matt Sapp MD Physical Exam HEENT: Normocephalic; atraumatic; no jaundice. CHEST: Resp even, non labored, wheezes throughout CARDIAC: RRR ABDOMEN: Soft, nondistended, nontender; no hepatosplenomegaly; bowel sounds are present in all four quadrants. EXTREMITIES: No clubbing, cyanosis. BLE 1+ pitting edema. 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 (Joseline Polanco [facility]) Assessment and Plan Plan ASSESSMENT: - Anemia, Hemoccult (+) Stools. 9.3/27.8. s/p EGD/dilation, found severe gastritis, esophageal stricture dilation 17mm. - Reflux, Barium Swallow X-Ray (06/20/16)-----> Unremarkable exam with no evidence of stricture or obstruction. PPI - COPD/Patchy bibasilar infiltrates on cxr. CT thorax with 1. Two 1.3 cm irregular masses in the left lung. The one in the left upper lobe is cavitary. These could be further evaluated with a PET/FDG study to determine if they are metabolically active or not. Neoplastic change cannot be excluded. 2. Small 5 mm nodules seen in the left upper lobe and left lower lobe. These are nonspecific. 3. Minimal left pleural effusion. 4. Atherosclerotic change at the coronary arteries and aorta. Nebs. S/P Bronchoscopy with biopsy benign. Abx. - Nonsustained run of vtach 3 nights ago, cardiology following. - Sepsis due to cellulitis of the rue, right olecranon bursitis. - C. diff being treated no diarrhea now PLAN: - await biopsy results - okay to resume anticoagulation from GI standpoint - SEEMA - continue PPI - Monitor hh - Transfuse as necessary - Supportive care - Refusing colonoscopy continue ABx for C diff. (Joseline Polanco) Physician Comments Patient was seen and examined, agree with above note, Gastric bx c/w gastropathy , possible NSAIDs, HGB stable, continue PPI. we will sign off. (Suzan Danielson MD) Joseline Polanco Jun 27, 2016 15:00 Suzan Danielson MD Jun 27, 2016 18:13
[2016-06-27] MEDS: VORICONAZOLE 200 MG TAB PO SCH ×2 (16:59→22:28)
[2016-06-27] MEDS: ZOLPIDEM TARTRATE 5 MG TAB PO PRN (22:27)
[2016-06-28] VITALS (8 sets, daily range): BP systolic 99–132; BP diastolic 51–76; PULSE 62–146; RESP 19–25; TEMP 97.2–99.5; O2SAT 91–98
[2016-06-28] MEDS: HYPROMELLOSE 0.3 % OPTH GEL 10 GM (0.34 FL OZ) TUBE EACH EYE SCH ×4 (03:54→22:20)
[2016-06-28] MEDS: ALPRAZolam 0.25 MG TAB PO PRN ×2 (05:46→22:20)
[2016-06-28] MEDS: metroNIDAZOLE 500 MG TAB PO SCH ×3 (05:46→22:22)
[2016-06-28] MEDS: INSULIN ASPART SUPPLEMENTAL SCALE SQ SCH ×5 (05:50→21:00)
--- NOTE | 2016-06-28 08:29 | HHI.IDPN ---
Subjective Subjective Remarks is a 76 y/o CM with history of CAD, diabetes who was [facility]. Patient reports swelling all over his body. He reports erythema and swelling since last 4 days prior to admission associated with tenderness in UE. Tenderness more pronounced over knuckles where he has areas that are beginning to look fluctuant. He reports he was in a rehab facility and may be received antibiotics there. He was found to have SVT at the time of presentation to ER for which he received Adenosine and Cardizem and then placed on cardizem drip. Cardiology saw the patient. Patient was noted to have signs of sepsis (elevated WBC 27,000 along with tachycardia, source: cellulitis UE). Patient had blood cultures on admission which are negative. ID is consulted for evaluation and Mment of Sepsis and bilateral UE cellulitis. Delayed entry for patient seen on 06/27/16. Reconsulted yday for Aspergillus niger in sputum. Overnight events reviewed. Cough with some white to ji expectoration. No diarrhea No rash No fevers. Antibiotics None Lines Line sites with no e/o bleed. 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 Vitals for 06/27/16 were reviewed Vital Signs Date Time Temp Pulse Resp B/P Pulse Ox O2 Delivery O2 Flow Rate FiO2 06/28/16 07:41 91 Nasal Cannula 2.00 06/28/16 03:16 97.6 104 19 132/76 95 06/28/16 00:28 98.3 104 19 128/72 95 06/27/16 20:09 98.0 103 19 116/61 94 06/27/16 16:01 96.6 93 17 108/61 97 06/27/16 12:14 97.0 80 18 132/66 94 06/27/16 08:42 93 21 06/27/16 06/27/16 06/28/16 15:00 23:00 07:00 Intake Total 480 ml 240 ml Output Total 850 ml 950 ml 250 ml Balance -370 ml -710 ml -250 ml Intake Oral 480 ml 240 ml Output Urine Total 850 ml 950 ml 250 ml # Bowel Movements 1 2 . Laboratory Tests Test 06/26/16 08:56 Sodium Level 143 MEQ/L Potassium Level 3.7 MEQ/L Chloride Level 104 MEQ/L Carbon Dioxide Level 31.1 MEQ/L Anion Gap 8 MEQ/L Blood Urea Nitrogen 33 MG/DL Creatinine 0.97 MG/DL Estimat Glomerular Filtration 75 ML/MIN Rate Random Glucose 75 MG/DL Calcium Level 7.8 MG/DL Phosphorus Level 2.5 MG/DL Magnesium Level 2.0 MG/DL Imaging Last Impressions Chest X-Ray 06/05/16 1223 Signed Impressions: Service Date/Time: June 12:50 - CONCLUSION: Hyperinflation which can be seen with COPD. No acute cardiopulmonary disease and no evidence for an infiltrate. Mani Lopez MD Upper Extremity Ultrasound 06/05/16 0000 Signed Impressions: Service Date/Time: June 16:01 - CONCLUSION: No evidence of upper extremity DVT on the right or left. Matt Sapp MD Elbow X-Ray 06/05/16 0000 Signed Impressions: Service Date/Time: June 17:02 - CONCLUSION: Minimal arthritic findings. Prominent soft tissue swelling of the olecranon process indicating possible olecranon bursitis. Matt Sapp MD Physical Exam GENERAL: Elderly chronically ill appearing male patient, in no apparent distress. SKIN: No rashes, ecchymoses or lesions. Cool and dry. HEAD: Atraumatic. Normocephalic. No temporal or scalp tenderness. EYES: Pupils equal round and reactive. Extraocular motions intact. No scleral icterus. No injection or drainage. ENT: Nose without bleeding, purulent drainage or septal hematoma. Throat without erythema, tonsillar hypertrophy or exudate. Uvula midline. Airway patent. NECK: Trachea midline. Supple, nontender, no meningeal signs. CARDIOVASCULAR: Hs audible. RESPIRATORY: Clear to auscultation. Breath sounds equal bilaterally. No wheezes , rales, or rhonchi. GASTROINTESTINAL: Abdomen soft, non-tender, nondistended. No hepato-splenomegaly , or palpable masses. No guarding. MUSCULOSKELETAL: Bilateral UE edema associated with erythema. On the knuckles of both hands an area of tenderness,fluctuance noted. right elbow with fluctuance noted, erythema and warmth noted. NEUROLOGICAL: Awake and alert. Grossly non focal Psych: cooperative IV line sites with no e/o infection. Assessment & Plan Remarks Sepsis present on admission Bilateral UE cellulitis ? abscess on dorsal aspect hand. Persistent Pneumonia: HCAP vs ADRIÁN etc given long standing COPD history COPD Oxygen dependent. Right olecranon bursitis. Abscess of right dorsum of hand. CAD DM HTN Recs: Start Voriconazole: patient will need atleast 4 weeks of treatment followed by reassessment clinically and radiologically. D.w about need for outpt ID follow up. Follow clinically. d/w Please check drug interactions when prescribing new medications. Will sign off please call back if any change in clinical condition or questions. Roya Velez MD Jun 28, 2016 08:29
[2016-06-28] MEDS: BUDESONIDE-FORMOTEROL 160/4.5 MCG INHALER INH SCH ×2 (09:00→22:20)
[2016-06-28] MEDS: POTASSIUM PHOSPHATE MONOBASIC 500 MG TAB PO SCH ×2 (09:55→22:23)
[2016-06-28] MEDS: LACTOBACILLUS ACIDOPHILUS TAB PO SCH ×3 (09:55→18:11)
[2016-06-28] MEDS: METOPROLOL TARTRATE 50 MG TAB PO SCH ×2 (09:56→21:00)
[2016-06-28] MEDS: ASPIRIN 81 MG CHEW TAB CHEW SCH (09:56)
[2016-06-28] MEDS: VORICONAZOLE 200 MG TAB PO SCH ×2 (09:56→22:24)
[2016-06-28] MEDS: LISINOPRIL 20 MG TAB PO SCH (09:56)
[2016-06-28] MEDS: FUROSEMIDE 40 MG TAB PO SCH (09:56)
[2016-06-28] MEDS: POTASSIUM CHLORIDE 20 MEQ CONTROLLED RELEASE TAB PO SCH (09:56)
[2016-06-28] MEDS: PANTOPRAZOLE SOD 40 MG DELAYED RELEASE TAB PO SCH (09:56)
[2016-06-28] MEDS: INSULIN DETEMIR 100 UNITS/ML VIAL SQ SCH ×2 (09:57→21:00)
[2016-06-28] MEDS: HEPARIN SODIUM - SQ 10,000 UNITS/ML VIAL SQ SCH ×2 (09:57→21:00)
[2016-06-28] MEDS: predniSONE 10 MG TAB PO SCH (09:57)
[2016-06-28] MEDS: ACETAMINOPHEN/HYDROcodone 325 MG/5 MG TAB PO PRN ×3 (11:33→22:22)
--- NOTE | 2016-06-28 11:49 | HHI.PR ---
Subjective Remarks resting comfortably with no distress. afebrile. denies sob or pain. Objective Vitals Vital Signs Date Time Temp Pulse Resp B/P Pulse Ox O2 Delivery O2 Flow Rate FiO2 06/28/16 10:18 94 Nasal Cannula 2.00 06/28/16 10:00 146 06/28/16 08:00 97.2 101 25 127/59 92 06/28/16 07:41 91 Nasal Cannula 2.00 06/28/16 03:16 97.6 104 19 132/76 95 06/28/16 02:30 Nasal Cannula 2.00 06/28/16 00:28 98.3 104 19 128/72 95 06/27/16 20:09 98.0 103 19 116/61 94 06/27/16 18:00 93 06/27/16 16:01 96.6 93 17 108/61 97 06/27/16 12:14 97.0 80 18 132/66 94 I/O 06/27/16 06/27/16 06/27/16 06/28/16 06/28/16 06/28/16 07:00 15:00 23:00 07:00 15:00 23:00 Intake Total 120 ml 480 ml 240 ml Output Total 400 ml 850 ml 950 ml 250 ml Balance -280 ml -370 ml -710 ml -250 ml Intake Oral 120 ml 480 ml 240 ml Output Urine Total 400 ml 850 ml 950 ml 250 ml # Bowel Movements 1 1 2 Result Diagram: 06/26/16 0856 Imaging Last Impressions Upper Extremity Ultrasound 06/20/16 0000 Signed Impressions: Service Date/Time: Monday, June 20, 2016 10:13 - CONCLUSION: Negative ultrasound with no evidence of abscess. Beau Croft MD Chest X-Ray 06/20/16 0000 Signed Impressions: Service Date/Time: Monday, June 20, 2016 12:44 - CONCLUSION: 1. Stable appearance with no evidence of pneumothorax. 2. Streaky opacity remains the left lung base with blunting of the costophrenic angle. 3. The known small masses seen on CT are not visualized. Beau Croft MD Barium Swallow X-Ray 06/20/16 0000 Signed Impressions: Service Date/Time: Monday, June 20, 2016 17:17 - CONCLUSION: Unremarkable exam with no evidence of stricture or obstruction. Beau Croft MD Chest CT 06/16/162028 Signed Impressions: Service Date/Time: Thursday, June 16, 2016 21:53 - CONCLUSION: 1. Two 1.3 cm irregular masses in the left lung. The one in the left upper lobe is cavitary. These could be further evaluated with a PET/FDG study to determine if they are metabolically active or not. Neoplastic change cannot be excluded. 2. Small 5 mm nodules seen in the left upper lobe and left lower lobe. These are nonspecific. 3. Minimal left pleural effusion. 4. Atherosclerotic change at the coronary arteries and aorta. Christoph Sandoval MD Elbow X-Ray 06/05/16 0000 Signed Impressions: Service Date/Time: June 17:02 - CONCLUSION: Minimal arthritic findings. Prominent soft tissue swelling of the olecranon process indicating possible olecranon bursitis. Matt Sapp MD Objective Remarks GENERAL: This is a well-nourished, well-developed patient, in no apparent distress. CARDIOVASCULAR: Regular rate and regular rhythm without murmurs, gallops, or rubs. RESPIRATORY:bilateral air entry present. GASTROINTESTINAL: Abdomen soft, non-tender, nondistended. Normal, active bowel sounds MUSCULOSKELETAL: no pedal edema NEURO: Alert & Oriented x4 to person, place, time, situation. Moves all ext x4 Procedures Incision and drainage of right hand abscess Bronchoscopy EGD with dilatation Medications and IVs Current Medications IV Flush (NS Flush) 2 ml UNSCH PRN IVF FLUSH AFTER USING IV ACCESS Last administered on 06/25/16 09:13; Start 06/05/16 at 12:30 Adenosine (Adenocard Inj) 6 mg ONCE ONCE IV PUSH Last administered on 13:36; Start 06/05/16 at 12:30; Stop 06/05/16 at 12:31; Status DC Adenosine (Adenocard Inj) 12 mg ONCE ONCE IV PUSH Last administered on 13:37; Start 06/05/16 at 12:30; Stop 06/05/16 at 12:31; Status DC Adenosine (Adenocard Inj) 18 mg STK-MED ONCE .ROUTE ; Start 06/05/16 at 12:29; Stop 06/05/16 at 12:30; Status DC Adenosine (Adenocard Inj) 6 mg STK-MED ONCE .ROUTE ; Start 06/05/16 at 12:31; Stop 06/05/16 at 12:32; Status DC Adenosine (Adenocard Inj) 6 mg ONCE ONCE IV PUSH ; Start 06/05/16 at 12:45; Stop 06/05/16 at 12:46; Status DC Adenosine (Adenocard Inj) 12 mg ONCE ONCE IV PUSH ; Start 06/05/16 at 12:45; Stop 06/05/16 at 12:46; Status DC Diltiazem HCl (Cardizem Inj) 25 mg STK-MED ONCE .ROUTE ; Start 06/05/16 at 12:41 ; Stop 06/05/16 at 12:42; Status DC Diltiazem HCl (Cardizem Inj) 25 mg ONCE ONCE IV Last administered on 06/05/16 13:38; Start 06/05/16 at 13:15; Stop 06/05/16 at 13:16; Status DC Diltiazem HCl 25 mg 25 mg STK-MED ONCE .ROUTE Last administered on 06/05/16 13: 37; Start 06/05/16 at 13:02; Stop 06/05/16 at 13:03; Status DC Vancomycin HCl 1200 mg/Sodium Chloride 262 ml @ 250 mls/hr ONCE ONCE IV Last administered on 06/05/16 14:45; Start 06/05/16 at 13:15; Stop 06/05/16 at 14:17; Status DC Cefepime HCl 2000 mg/Sodium Chloride 100 ml @ 200 mls/hr ONCE ONCE IV Last administered on 06/05/16 16:13; Start 06/05/16 at 13:15; Stop 06/05/16 at 13:44; Status DC Diltiazem HCl/ Sodium Chloride (Cardizem Inj/NS Inj) 125 ml @ 0 mls/hr TITRATE IV Last administered on 06/11/16 21:47; Start 06/05/16 at 13:30; Stop 06/12/16 at 08:27; Status DC Diltiazem HCl (Cardizem Inj) 20 mg ONCE ONCE IV Last administered on 06/05/16 14:35; Start 06/05/16 at 14:15; Stop 06/05/16 at 14:16; Status DC Diltiazem HCl 20 mg 20 mg ONCE ONCE IV Last administered on 06/05/16 16:16; Start 06/05/16 at 14:15; Stop 06/05/16 at 14:16; Status DC Pharmacy Profile Note 0 ml @ 0 mls/hr UNSCH OTHER ; Start 06/05/16 at 15:45; Stop 06/21/16 at 14:20; Status DC Cefepime HCl/ Sodium Chloride (Maxipime Inj/NS Inj) 100 ml @ 200 mls/hr Q12H IV Last administered on 06/06/16 14:58; Start 06/06/16 at 02:00; Stop 06/06/16 at 19:04; Status DC Acetaminophen (Tylenol) 650 mg Q4H PRN PO FEVER/ PAIN 1-5 Last administered on 06/21/16 01:23; Start 06/05/16 at 15:45 Acetaminophen/ Hydrocodone Bitart ([place] 5-325 Mg) 1 tab Q4H PRN PO PAIN 6-10 Last administered on 06/28/16 11:33; Start 06/05/16 at 15:45 Hydromorphone HCl (Dilaudid Pf Inj) 0.2 mg Q4H PRN IV PUSH BREAKTHROUGH PAIN Last administered on 06/05/16 16:47; Start 06/05/16 at 15:45 Ondansetron HCl (Zofran Inj) 4 mg Q8HR PRN IV PUSH NAUSEA Last administered on 06/17/16 13:26; Start 06/05/16 at 15:45 Albuterol Sulfate (Proair Hfa Inh) 2 puff QID INH Last administered on 18:00; Start 06/05/16 at 18:00; Stop 06/16/16 at 20:36; Status DC Aspirin (Aspirin Chew) 81 mg DAILY CHEW Last administered on 06/28/16 09:56; Start 06/06/16 at 09:00 Budesonide/ Formoterol Fumarate (Symbicort 160-4.5 Inh) 2 puff BID INH Last administered on 06/28/16 09:00; Start 06/05/16 at 21:00 Lisinopril (Prinivil) 20 mg DAILY PO Last administered on 06/28/16 09:56; Start 06/06/16 at 09:00 Tiotropium [place] (Spiriva Inh) 18 mcg DAILY INH Last administered on 09:01; Start 06/06/16 at 09:00; Stop 06/16/16 at 20:30; Status DC Diltiazem HCl (Cardizem Cd) 180 mg DAILY PO Last administered on 06/18/16 09: 50; Start 06/06/16 at 09:00; Stop 06/19/16 at 05:49; Status DC Insulin Detemir (Levemir Inj) 8 units HS SQ Last administered on 06/09/16 20:35 ; Start 06/05/16 at 21:00; Stop 06/13/16 at 16:27; Status DC Insulin Detemir (Levemir Inj) 12 units DAILY SQ Last administered on 06/09/16 09:00; Start 06/06/16 at 09:00; Stop 06/13/16 at 16:27; Status DC Naphazoline HCl (Clear Eyes Redness Relief 0.012% Opth Soln) 1 drop QID PRN EACH EYE EYE ITCH; Start 06/05/16 at 16:30 Albuterol Sulfate (Albuterol Neb) 0.63 mg Q6HR NEB PRN NEB SHORTNESS OF BREATH ; Start 06/05/16 at 15:45; Stop 06/09/16 at 09:32; Status DC Dextrose (D50w (Vial) Inj) 25 ml UNSCH PRN IV PUSH HYPOGLYCEMIA-SEE COMMENTS Last administered on 06/10/16 06:34; Start 06/05/16 at 15:45 Glucagon (Glucagon Inj) 1 mg UNSCH PRN OTHER HYPOGLYCEMIA-SEE COMMENTS; Start 06/05/16 at 15:45 Insulin Aspart 1 1 ACHS SLIDING SCALE SQ Last administered on 06/12/16 20:36; Start 06/05/16 at 16:00; Stop 06/13/16 at 05:08; Status DC Vancomycin HCl/ Sodium Chloride (Vancomycin Inj/ NS 500 ml Inj) 515 ml @ 250 mls/hr Q18H IV Last administered on 06/09/16 06:09; Start 06/06/16 at 06:00; Stop 06/09/16 at 10:22; Status DC Miscellaneous Information SPECIFIC LAB TO BE DRAWN:VANCOMYCIN TROUGH DATE TO... ONCE ONCE XX ; Start 06/08/16 at 11:45; Stop 06/08/16 at 11:46; Status DC Sodium Chloride (NS 500 ml Inj) 500 ml @ 500 mls/hr BOLUS ONCE IV Last administered on 06/05/16 20:36; Start 06/05/16 at 20:15; Stop 06/05/16 at 21:14; Status DC Albuterol/ Ipratropium (Duoneb Neb) 1 ampule Q4HR NEB PRN NEB SOB/WHEEZING; Start 06/05/16 at 20:30; Stop 06/09/16 at 09:30; Status DC Alprazolam (Xanax) 0.25 mg Q12HR PRN PO ANXIETY Last administered on 06/28/16 05:46; Start 06/06/16 at 13:00 Zolpidem Tartrate (Ambien) 5 mg HS PRN PO SLEEP Last administered on 06/27/16 22:27; Start 06/06/16 at 21:00 Furosemide (Lasix Inj) 20 mg ONCE ONCE IV PUSH Last administered on 06/08/16 08:45; Start 06/08/16 at 08:45; Stop 06/08/16 at 08:52; Status DC Miscellaneous Information SPECIFIC LAB TO BE DRAWN:VANCOMY... ONCE ONCE XX Last administered on 06/09/16 05:45; Start 06/09/16 at 05:45; Stop 06/09/16 at 05: 46; Status DC Furosemide (Lasix Inj) 40 mg STK-MED ONCE .ROUTE ; Start 06/08/16 at 17:02; Stop 06/08/16 at 17:03; Status DC Albuterol/ Ipratropium (Duoneb Neb) 1 ampule Q4HR NEB NEB Last administered on 06/13/16 11:11; Start 06/09/16 at 12:00; Stop 06/13/16 at 12:11; Status DC Albuterol Sulfate (Albuterol Neb) 0.63 mg Q2HR NEB PRN NEB SHORTNESS OF BREATH Last administered on 06/14/16 19:52; Start 06/09/16 at 10:00 Potassium Chloride 20 meq 20 meq ONCE ONCE PO Last administered on 06/09/16 09 :30; Start 06/09/16 at 09:30; Stop 06/09/16 at 09:45; Status DC Vancomycin HCl/ Sodium Chloride (Vancomycin Inj/ NS 250 ml Inj) 250 ml @ 250 mls/hr Q12H IV Last administered on 06/10/16 06:45; Start 06/09/16 at 18:00; Stop 06/10/16 at 21:19; Status DC Miscellaneous Information SPECIFIC LAB TO BE DILLAN... ONCE ONCE XX ; Start at 17:45; Stop 06/10/16 at 17:46; Status DC Furosemide (Lasix Inj) 20 mg DAILY IV PUSH Last administered on 06/20/16 08:09 ; Start 06/09/16 at 12:30; Stop 06/20/16 at 21:00; Status DC Potassium Chloride (KCl) 20 meq DAILY PO Last administered on 06/20/16 08:09; Start 06/09/16 at 12:30; Stop 06/20/16 at 11:10; Status DC Guaifenesin/ Codeine Phosphate (Robitussin Ac 200-20 Mg/10 ml Liq) 10 ml Q6H PRN PO COUGH Last administered on 06/26/16 21:09; Start 06/10/16 at 10:00 Lidocaine HCl (Xylocaine 2% Inj) 100 mg STK-MED ONCE .ROUTE ; Start 06/10/16 at 16:21; Stop 06/10/16 at 16:22; Status DC Lidocaine HCl 50 ml 50 ml STK-MED ONCE .ROUTE ; Start 06/10/16 at 16:34; Stop 06/10/16 at 16:35; Status DC Vancomycin HCl/ Sodium Chloride (Vancomycin Inj/ NS 250 ml Inj) 250 ml @ 250 mls/hr Q24H IV Last administered on 06/11/16 08:53; Start 06/11/16 at 08:00; Stop 06/11/16 at 09:09; Status DC Miscellaneous Information SPECIFIC LAB TO BE DRAWN:VA... ONCE ONCE XX ; Start 06/11/16 at 07:45; Stop 06/11/16 at 07:46; Status DC Vancomycin HCl/ Sodium Chloride (Vancomycin Inj/ NS 500 ml Inj) 515 ml @ 250 mls/hr Q18H IV Last administered on 06/13/16 08:26; Start 06/11/16 at 20:00; Stop 06/13/16 at 10:21; Status DC Miscellaneous Information SPECIFIC LAB TO BE DRAWN:VANCOMYCIN TROUGH DATE TO... ONCE ONCE XX Last administered on 06/13/16 07:45; Start 06/13/16 at 07:45; Stop 06/13/16 at 07:46; Status DC Methylprednisolone Sodium Succinate (SoluMEDROL INJ) 40 mg Q6H IV PUSH Last administered on 06/12/16 04:32; Start 06/11/16 at 11:00; Stop 06/12/16 at 08:28; Status DC Docusate Sodium 100 mg 100 mg BID PRN PO CONSTIPATION Last administered on 06/13 12:38; Start 06/11/16 at 10:30 Levofloxacin/ Dextrose (Levaquin 500 Mg Premix Inj) 100 ml @ 100 mls/hr Q24H IV Last administered on 06/12/16 18:13; Start 06/11/16 at 18:00; Stop 06/13/16 at 16:27; Status DC Methylprednisolone Sodium Succinate (SoluMEDROL INJ) 40 mg Q8HR IV PUSH Last administered on 06/13/16 12:38; Start 06/12/16 at 14:00; Stop 06/13/16 at 16:27 ; Status DC Insulin Aspart 1 1 ACHS SLIDING SCALE SQ Last administered on 06/27/16 21:00 ; Start 06/13/16 at 07:00 Vancomycin HCl/ Sodium Chloride (Vancomycin Inj/ NS 250 ml Inj) 262.5 ml @ 250 mls/hr Q24H IV Last administered on 06/21/16 08:43; Start 06/14/16 at 08:00; Stop 06/21/16 at 14:21; Status DC Miscellaneous Information SPECIFIC LAB TO BE DILLAN... ONCE ONCE XX ; Start at 07:45; Stop 06/16/16 at 07:46; Status DC Insulin Detemir (Levemir Inj) 10 units HS SQ ; Start 06/13/16 at 21:00; Stop 03/20 at 07:26; Status DC Insulin Detemir (Levemir Inj) 15 units DAILY SQ ; Start 06/14/16 at 09:00; Stop 06/14/16 at 09:00; Status DC Methylprednisolone Sodium Succinate (SoluMEDROL INJ) 40 mg Q12HR IV PUSH Last administered on 06/15/16 08:17; Start 06/13/16 at 21:00; Stop 06/15/16 at 13:31 ; Status DC Insulin Detemir (Levemir Inj) 8 units HS SQ Last administered on 06/27/16 22: 30; Start 06/14/16 at 21:00 Insulin Detemir (Levemir Inj) 12 units DAILY SQ Last administered on 06/18/16 09:00; Start 06/14/16 at 09:00; Stop 06/18/16 at 09:27; Status DC Pantoprazole Sodium (Protonix) 40 mg DAILY PO Last administered on 06/28/16 09 :56; Start 06/14/16 at 09:00 Prednisone (Deltasone) 40 mg DAILY PO Last administered on 06/17/16 08:39; Start 06/15/16 at 13:30; Stop 06/17/16 at 15:31; Status DC Miscellaneous Information SPECIFIC LAB TO BE DILLAN... ONCE ONCE XX ; Start at 07:45; Stop 06/17/16 at 07:46; Status DC Piperacillin Sod/ Tazobactam Sod (Zosyn 4.5 Gm Premix) 100 ml @ 200 mls/hr Q8H IV Last administered on 06/21/16 12:46; Start 06/16/16 at 21:00; Stop at 14:21; Status DC Levofloxacin (Levaquin) 500 mg Q24H PO Last administered on 06/23/16 21:28; Start 06/16/16 at 20:00; Stop 06/24/16 at 19:59; Status DC Albuterol/ Ipratropium (Duoneb Neb) 1 ampule QID NEB NEB Last administered on 06/26/16 15:42; Start 06/17/16 at 08:00; Stop 06/28/16 at 10:42; Status DC Methylprednisolone Sodium Succinate (SoluMEDROL INJ) 40 mg Q8H IV Last administered on 06/19/16 05:33; Start 06/17/16 at 13:00; Stop 06/19/16 at 08:37 ; Status DC Miscellaneous Information SPECIFIC LAB TO BE DRAWN:VANCOMYCIN TROUGH DATE TO... ONCE ONCE XX ; Start 06/18/16 at 07:45; Stop 06/18/16 at 07:46; Status DC Insulin Detemir (Levemir Inj) 18 units DAILY SQ Last administered on 06/28/16 09:57; Start 06/19/16 at 09:00 Diltiazem HCl (Cardizem Cd) 240 mg DAILY PO Last administered on 06/25/16 09: 13; Start 06/19/16 at 09:00; Stop 06/26/16 at 08:09; Status DC Methylprednisolone Sodium Succinate (SoluMEDROL INJ) 40 mg Q12HR IV Last administered on 06/21/16 08:45; Start 06/19/16 at 21:00; Stop 06/21/16 at 18:05 ; Status DC Hypromellose 2 drop 2 drop Q6H EACH EYE Last administered on 06/28/16 10:00; Start 06/19/16 at 10:00 Dextrose/Sodium Chloride (D5W-1/2 NS 1000 ml Inj) 1,000 ml @ 0 mls/hr Q0M IV ; Start 06/19/16 at 13:17; Stop 06/21/16 at 10:46; Status DC Albuterol Sulfate (Albuterol Concentrated Neb) 2.5 mg SUPERVISOR EVAPORATOR NEB ; Start 06/19 at 13:30; Stop 06/23/16 at 13:29; Status DC Furosemide (Lasix Inj) 20 mg BID@09,18 IV PUSH Last administered on 06/21/16 16:41; Start 06/20/16 at 18:00; Stop 06/21/16 at 18:06; Status DC Potassium Chloride (KCl) 20 meq BID PO Last administered on 06/21/16 08:43; Start 06/20/16 at 21:00; Stop 06/21/16 at 10:49; Status DC Albuterol Sulfate (Albuterol Neb) 2.5 mg STK-MED ONCE .ROUTE ; Start 06/20/16 at 11:33; Stop 06/20/16 at 11:34; Status DC Ketamine HCl (Ketalar Inj) 500 mg STK-MED ONCE .ROUTE ; Start 06/20/16 at 11:51 ; Stop 06/20/16 at 11:52; Status DC Albuterol Sulfate (Albuterol Neb) 2.5 mg UNSCH X1 PRN NEB SHORTNESS OF BREATH; Start 06/20/16 at 12:30; Stop 06/21/16 at 12:29; Status DC Lidocaine HCl (Xylocaine 2% Inj) 50 ml STK-MED ONCE E-TRACHE Last administered on 06/20/16 12:07; Start 06/20/16 at 12:07; Stop 06/20/16 at 12:48; Status DC Miscellaneous Information ALL NURSING DEPARTME... UNSCH PRN XX SEE LABEL COMMENTS; Start 06/20/16 at 12:42; Stop 06/21/16 at 12:41; Status DC Midazolam HCl (Versed Inj) 2 mg STK-MED ONCE .ROUTE ; Start 06/20/16 at 13:34; Stop 06/20/16 at 13:35; Status DC Lactobacillus Acidophilus (Lactinex) 1 tab TID PO Last administered on 09:55; Start 06/21/16 at 13:00 Potassium Chloride (KCl) 40 meq BID PO Last administered on 06/22/16 21:23; Start 06/21/16 at 21:00; Stop 06/23/16 at 05:34; Status DC Potassium Chloride (KCl) 40 meq ONCE ONCE PO Last administered on 06/21/16 12 :45; Start 06/21/16 at 11:00; Stop 06/21/16 at 11:08; Status DC Miscellaneous Information SPECIFIC LAB TO BE DILLAN... ONCE ONCE XX ; Start at 07:45; Stop 06/24/16 at 07:45; Status DC Prednisone (Deltasone) 20 mg DAILY PO Last administered on 06/23/16 08:42; Start 06/22/16 at 09:00; Stop 06/23/16 at 19:23; Status DC Furosemide (Lasix) 40 mg DAILY PO Last administered on 06/28/16 09:56; Start 06/22/16 at 09:00 Fluconazole (Diflucan) 400 mg DAILY PO Last administered on 06/23/16 08:42; Start 06/22/16 at 09:00; Stop 06/23/16 at 12:29; Status DC Metronidazole (Flagyl) 500 mg Q8HR PO Last administered on 06/28/16 05:46; Start 06/22/16 at 14:00; Stop 07/06/16 at 13:59 Amiodarone HCl (Cordarone) 400 mg Q12HR PO ; Start 06/23/16 at 09:00; Stop 06/23 at 09:00; Status DC Amiodarone HCl 400 mg 400 mg ONCE ONCE PO ; Start 06/23/16 at 03:45; Stop 06/23 at 03:45; Status DC Amiodarone HCl 150 mg/Dextrose 100 ml @ 600 mls/hr ONCE ONCE IV Last administered on 06/23/16 04:10; Start 06/23/16 at 03:45; Stop 06/23/16 at 17:26 ; Status DC Amiodarone HCl/ Dextrose (Cordarone Inj/ D5W ([place]) Inj) 259 ml @ 0 mls/hr CONTINUOUS IV Last administered on 06/23/16 04:30; Start 06/23/16 at 03:45; Stop 06/23/16 at 17:26; Status DC Potassium Chloride (KCl) 20 meq DAILY PO Last administered on 06/28/16 09:56; Start 06/23/16 at 09:00 Potassium Phosphate (K-Phos) 1,000 mg Q12HR PO Last administered on 06/28/16 09:55; Start 06/23/16 at 09:00 Prednisone (Deltasone) 15 mg DAILY PO Last administered on 06/27/16 08:41; Start 06/24/16 at 09:00; Stop 06/27/16 at 12:53; Status DC Propofol (Diprivan 200 Mg/20 ml Inj) 200 mg STK-MED ONCE IV ; Start 06/20/16 at 12:00; Stop 06/24/16 at 13:32; Status DC Diltiazem HCl (Cardizem Cd) 120 mg DAILY PO Last administered on 06/26/16 10: 54; Start 06/26/16 at 09:00; Stop 06/27/16 at 07:28; Status DC Metoprolol Tartrate (Lopressor) 12.5 mg Q12HR PO Last administered on 21:09; Start 06/26/16 at 09:00; Stop 06/27/16 at 07:28; Status DC Miscellaneous (Pill Splitter) 1 ea UNSCH PRN OTHER SEE LABEL COMMENTS; Start at 08:30 Propofol (Diprivan 200 Mg/20 ml Inj) 60 mg STK-MED ONCE IV ; Start 06/26/16 at 12:43; Stop 06/26/16 at 12:56; Status DC Miscellaneous Information ALL NURSING DEPARTME... UNSCH PRN XX SEE LABEL COMMENTS; Start 06/26/16 at 13:45; Stop 06/27/16 at 13:44; Status DC Metoprolol Tartrate (Lopressor) 50 mg Q12HR PO Last administered on 06/28/16 09:56; Start 06/27/16 at 09:00 Heparin Sodium (Porcine) (Heparin Inj) 5,000 units Q12HR SQ Last administered on 06/28/16 09:57; Start 06/27/16 at 11:00 Prednisone (Deltasone) 10 mg DAILY PO Last administered on 06/28/16 09:57; Start 06/28/16 at 09:00 Voriconazole 200 mg 200 mg Q12HR PO Last administered on 06/28/16 09:56; Start 06/27/16 at 15:33 Pharmacy Profile Note ([facility]) 0 ml @ 0 mls/hr UNSCH OTHER ; Start 06/27/16 at 14:00 A/P Assessment and Plan A/P severe sepsis due to cellulitis of the right upper extremity/ right olecranon bursitis resolved venous doppler of the upper extremities with no DVT-XR of the right elbow with possible olecranon bursitis- US of the right upper extremity with a complex mass overlying the right third finger- s/p I/D of the right nand mass/fluid collection. S/p vancomycin culture positive for MRSA- keep the right hand elevated- continue pain control ID/hand surgery and ortho following; recommended conservative treatment of olecranon bursitis. -HAP. Stable status post Zosyn and Levaquin. Repeat chest x-ray stable. Bronchial washings culture with Aspergillus niger, started on Variconazole- treatment per ID -Pulmonary nodules. Status post bronchoscopy negative cytology. Repeat CT in 2 months -SVT- due to sepsis-on beta rosy - cardiology consult appreciated. -ischemic cardiomyopathy with mild levation of troponin- s/p stent placement 2001, follow-up angiogram 2 weeks ago no intervention needed per patient; continue aspirin and lisinopril elevated troponin likely due to tachycardia/ sepsis. Restarted asa echo with EF 35% cautious use of BB hx of COPD cardiology reconsulted 2/2 VT felt to be secondary to NAN . Info from Dr Vora shows ECHO May 2016 with normal EF and cath from 2014 (Apr per pt) with stable CAD. Elevated trop likely from sepsis -acute on chronic systolic CHF- continue Lasix and monitor electrolytes. Improving edema. Repeat BMP and magnesium as needed -COPD exacerbation-improving dyspnea on exertion continue steroids and neb treatment- will monitor. of note the patient is on home oxygen. -diabetes with hypoglycemic episode ;with no further hypoglycemia. Hyperglycemic secondary to steroids and noncompliance(refusing fingersticks and Levemir because he does not want to be poked). Adjust Levemir accordingly.- accu-check with SSI. Patient again counseled regarding compliance -anemia of chronic disease- s/p PRBC transfusion with improved H/H- will monitor stool occult blood positive 1. Continue PPI and consulted GI for endoscopy which showed gastritis and esophageal ring status post dilatations and biopsy. ok with GI to restart aspirin. -Hypertension. Improving with Lasix and beta rosy status post Cardizem. Dry eyes. Eye lubricants. --C. difficile colitis. Improving no diarrhea Continue Lactinex and Flagyl until July 06. Monitor electrolytes DVT prophylaxis ; SCD's and subcutaneous heparin -consulted PT/OT Pankaj Booth MD Jun 28, 2016 11:49
--- NOTE | 2016-06-28 13:44 | PD.CARD.PN ---
Subjective Subjective Remarks Dyspnea much better. No CP, dizziness, palpitations, nausea, PND. Slept well. Objective Medications Item Value Date Time Heparin Sodium 5,000 units 06/27/16 1100 (Porcine) Q12HR/SQ 06/28/16 0957 (Heparin Inj) Metoprolol 50 mg 06/27/16 0900 Tartrate Q12HR/PO 06/28/16 0956 (Lopressor) Potassium Chloride 20 meq 06/23/16 0900 (KCl) DAILY/PO 06/28/16 0956 Potassium 1,000 mg 06/23/16 0900 Phosphate Q12HR/PO 06/28/16 0955 (K-Phos) Furosemide 40 mg 06/22/16 0900 (Lasix) DAILY/PO 06/28/16 0956 Aspirin 81 mg 06/06/16 0900 (Aspirin Chew) DAILY/CHEW 06/28/16 0956 Lisinopril 20 mg 06/06/16 0900 (Prinivil) DAILY/PO 06/28/16 0956 Vital Signs / I&O Vital Signs Date Time Temp Pulse Resp B/P Pulse Ox O2 Delivery O2 Flow Rate FiO2 06/28/16 12:00 99.5 129 21 126/67 93 06/28/16 10:18 94 Nasal Cannula 2.00 06/28/16 10:00 146 06/28/16 08:00 97.2 101 25 127/59 92 06/28/16 07:41 91 Nasal Cannula 2.00 06/28/16 03:16 97.6 104 19 132/76 95 06/28/16 02:30 Nasal Cannula 2.00 06/28/16 00:28 98.3 104 19 128/72 95 06/27/16 20:09 98.0 103 19 116/61 94 06/27/16 18:00 93 06/27/16 16:01 96.6 93 17 108/61 97 I/O 06/27/16 06/27/16 06/27/16 06/28/16 06/28/16 06/28/16 07:00 15:00 23:00 07:00 15:00 23:00 Intake Total 120 ml 480 ml 240 ml Output Total 400 ml 850 ml 950 ml 250 ml Balance -280 ml -370 ml -710 ml -250 ml Intake Oral 120 ml 480 ml 240 ml Output Urine Total 400 ml 850 ml 950 ml 250 ml # Bowel Movements 1 1 2 Physical Exam GENERAL: Well developed, well nourished. No acute distress. HEENT: Jugular venous pressure is normal. CHEST: Diminished breath sounds diffusely. CARDIAC: Regular rate and rhythm without S3, S4, or murmur. ABDOMEN: Soft, nontender, no hepatosplenomegaly. Bowel sounds present. EXTREMITIES: No clubbing, cyanosis, or edema. Assessment and Plan Problem List: (1) VT (ventricular tachycardia) Assessment and Plan: Stable overnight. Monitoring strips reviewed. No further VT. (2) Cardiomyopathy Assessment and Plan: EF 30-35% by echo this admission. Overall stable. Compensated. Continue beta rosy, GUANACO-I, diuretic. (3) CAD (coronary artery disease) Assessment and Plan: Stable. No definite angina symptoms. Continue medical therapy. (4) SVT (supraventricular tachycardia) Code Status full code Discussed Condition With patient Problem Qualifiers (1) Cardiomyopathy: Qualified Code: I25.5 - Ischemic cardiomyopathy Tyrell Holt MD Jun 28, 2016 13:44
--- NOTE | 2016-06-28 18:30 | HHI.PR ---
Subjective Remarks Improved now No SOB at rest.. 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 Now on Voriconazole Cytology negative. Objective Vital Signs Date Time Temp Pulse Resp B/P Pulse Ox O2 Delivery O2 Flow Rate FiO2 06/28/16 16:00 97.6 80 23 99/51 98 06/28/16 12:00 99.5 129 21 126/67 93 06/28/16 10:18 94 Nasal Cannula 2.00 06/28/16 10:00 146 06/28/16 08:00 97.2 101 25 127/59 92 06/28/16 07:41 91 Nasal Cannula 2.00 06/28/16 03:16 97.6 104 19 132/76 95 06/28/16 02:30 Nasal Cannula 2.00 06/28/16 00:28 98.3 104 19 128/72 95 06/27/16 20:09 98.0 103 19 116/61 94 I/O 06/27/16 06/27/16 06/27/16 06/28/16 06/28/16 06/28/16 07:00 15:00 23:00 07:00 15:00 23:00 Intake Total 120 ml 480 ml 240 ml Output Total 400 ml 850 ml 950 ml 250 ml Balance -280 ml -370 ml -710 ml -250 ml Intake Oral 120 ml 480 ml 240 ml Output Urine Total 400 ml 850 ml 950 ml 250 ml # Voids 2 # Bowel Movements 1 1 2 1 Result Diagram: 06/26/16 0856 Objective Remarks This is an elderly averagely built white male who is pale and not dyspneic at rest. EXTREMITIES: There is no clubbing. There is no leg edema. HEENT: Head normocephalic. Pupils are reactive and equal. Tongue was moist. Throat was clear. Ears, no inflammation. NECK: Supple. No venous distension. No thyromegaly or lymphadenopathy. CHEST: Decreased breath sounds at the bases with wheezes over both lung saab. HEART: The heart sounds are regular S1-S2 with no murmur. No S3. ABDOMEN: The abdomen is soft, nontender. No organomegaly. The bowel sounds are active. EXTREMITIES: Edema 1+ with diminished pulses and joint deformities of the extremities. SKIN: Cool, dry. NEUROLOGIC: He is alert and oriented. Moves all extremities.There are no deficits. Assessment and Plan Assessment and Plan IMPRESSION 1. Cellulitis of the right upper extremity resolving. 2. COPD with emphysema and chronic bronchitis 3. Coronary artery disease with stenting 4. Diabetes mellitus 5. History of hypertension. 6. Left Lung nodules Plan : 1. PT evaluation and ambulate. 2. Cont Nebs qid , duoneb. 3. O2 at 2L. 4. Continue lasix 40 mg Po daily. 5. Prednisone 10 mg daily 6. Voriconazole PO per Dr Velez 7. CT chest in 2 mths. 8. Home anytime Liv Pinedo MD Jun 28, 2016 18:30
[2016-06-28] MEDS: ZOLPIDEM TARTRATE 5 MG TAB PO PRN (22:22)
[2016-06-29] VITALS (9 sets, daily range): BP systolic 107–132; BP diastolic 56–79; PULSE 64–94; RESP 16–20; TEMP 95.6–98.1; O2SAT 90–98
[2016-06-29] MEDS: HYPROMELLOSE 0.3 % OPTH GEL 10 GM (0.34 FL OZ) TUBE EACH EYE SCH ×4 (04:00→22:03)
[2016-06-29] MEDS: metroNIDAZOLE 500 MG TAB PO SCH ×3 (05:56→22:03)
[2016-06-29] MEDS: ACETAMINOPHEN/HYDROcodone 325 MG/5 MG TAB PO PRN ×2 (05:56→17:58)
[2016-06-29] MEDS: LACTOBACILLUS ACIDOPHILUS TAB PO SCH ×3 (08:31→17:57)
[2016-06-29] MEDS: POTASSIUM CHLORIDE 20 MEQ CONTROLLED RELEASE TAB PO SCH (08:31)
[2016-06-29] MEDS: PANTOPRAZOLE SOD 40 MG DELAYED RELEASE TAB PO SCH (08:31)
[2016-06-29] MEDS: VORICONAZOLE 200 MG TAB PO SCH ×2 (08:31→22:03)
[2016-06-29] MEDS: METOPROLOL TARTRATE 50 MG TAB PO SCH ×2 (08:31→22:02)
[2016-06-29] MEDS: POTASSIUM PHOSPHATE MONOBASIC 500 MG TAB PO SCH ×2 (08:32→22:02)
[2016-06-29] MEDS: ASPIRIN 81 MG CHEW TAB CHEW SCH (08:32)
[2016-06-29] MEDS: predniSONE 10 MG TAB PO SCH (08:32)
[2016-06-29] MEDS: LISINOPRIL 20 MG TAB PO SCH (08:32)
[2016-06-29] MEDS: BUDESONIDE-FORMOTEROL 160/4.5 MCG INHALER INH SCH ×2 (08:35→22:05)
[2016-06-29] MEDS: FUROSEMIDE 40 MG TAB PO SCH (08:38)
[2016-06-29] MEDS: INSULIN DETEMIR 100 UNITS/ML VIAL SQ SCH ×2 (08:38→21:00)
[2016-06-29] MEDS: HEPARIN SODIUM - SQ 10,000 UNITS/ML VIAL SQ SCH ×2 (08:38→21:00)
[2016-06-29] MEDS: INSULIN ASPART SUPPLEMENTAL SCALE SQ SCH ×3 (11:00→21:00)
--- NOTE | 2016-06-29 12:57 | HHI.PR ---
Subjective Remarks Patient stated he continues to have SOB with exertion. Otherwise denied any pain. No acute events. Objective Vitals Vital Signs Date Time Temp Pulse Resp B/P Pulse Ox O2 Delivery O2 Flow Rate FiO2 06/29/16 12:00 95.6 92 18 107/79 95 06/29/16 11:18 94 06/29/16 09:29 97 Nasal Cannula 3.00 06/29/16 08:44 92 Nasal Cannula 3.00 06/29/16 08:00 96.7 93 18 115/68 90 06/29/16 04:30 98.1 74 20 110/56 93 06/29/16 02:30 Nasal Cannula 2.00 06/29/16 00:45 98.1 64 20 118/58 93 06/28/16 20:56 98.0 62 20 114/56 91 06/28/16 16:00 97.6 80 23 99/51 98 I/O 06/28/16 06/28/16 06/28/16 06/29/16 06/29/16 06/29/16 07:00 15:00 23:00 07:00 15:00 23:00 Intake Total 360 ml 240 ml Output Total 250 ml Balance -250 ml 360 ml 240 ml Intake Oral 360 ml 240 ml Output Urine Total 250 ml # Voids 2 2 1 # Bowel Movements 1 Result Diagram: 06/26/16 0856 Objective Remarks Gen NAD CV RRR. no r/m/g Abd: soft NDNT Ext elbow no erythema, or swelling noted. full ROM. no pain. Procedures Incision and drainage of right hand abscess Bronchoscopy EGD with dilatation Medications and IVs Current Medications IV Flush (NS Flush) 2 ml UNSCH PRN IVF FLUSH AFTER USING IV ACCESS Last administered on 06/25/16 09:13; Start 06/05/16 at 12:30 Adenosine (Adenocard Inj) 6 mg ONCE ONCE IV PUSH Last administered on 13:36; Start 06/05/16 at 12:30; Stop 06/05/16 at 12:31; Status DC Adenosine (Adenocard Inj) 12 mg ONCE ONCE IV PUSH Last administered on 13:37; Start 06/05/16 at 12:30; Stop 06/05/16 at 12:31; Status DC Adenosine (Adenocard Inj) 18 mg STK-MED ONCE .ROUTE ; Start 06/05/16 at 12:29; Stop 06/05/16 at 12:30; Status DC Adenosine (Adenocard Inj) 6 mg STK-MED ONCE .ROUTE ; Start 06/05/16 at 12:31; Stop 06/05/16 at 12:32; Status DC Adenosine (Adenocard Inj) 6 mg ONCE ONCE IV PUSH ; Start 06/05/16 at 12:45; Stop 06/05/16 at 12:46; Status DC Adenosine (Adenocard Inj) 12 mg ONCE ONCE IV PUSH ; Start 06/05/16 at 12:45; Stop 06/05/16 at 12:46; Status DC Diltiazem HCl (Cardizem Inj) 25 mg STK-MED ONCE .ROUTE ; Start 06/05/16 at 12:41 ; Stop 06/05/16 at 12:42; Status DC Diltiazem HCl (Cardizem Inj) 25 mg ONCE ONCE IV Last administered on 06/05/16 13:38; Start 06/05/16 at 13:15; Stop 06/05/16 at 13:16; Status DC Diltiazem HCl 25 mg 25 mg STK-MED ONCE .ROUTE Last administered on 06/05/16 13: 37; Start 06/05/16 at 13:02; Stop 06/05/16 at 13:03; Status DC Vancomycin HCl 1200 mg/Sodium Chloride 262 ml @ 250 mls/hr ONCE ONCE IV Last administered on 06/05/16 14:45; Start 06/05/16 at 13:15; Stop 06/05/16 at 14:17; Status DC Cefepime HCl 2000 mg/Sodium Chloride 100 ml @ 200 mls/hr ONCE ONCE IV Last administered on 06/05/16 16:13; Start 06/05/16 at 13:15; Stop 06/05/16 at 13:44; Status DC Diltiazem HCl/ Sodium Chloride (Cardizem Inj/NS Inj) 125 ml @ 0 mls/hr TITRATE IV Last administered on 06/11/16 21:47; Start 06/05/16 at 13:30; Stop 06/12/16 at 08:27; Status DC Diltiazem HCl (Cardizem Inj) 20 mg ONCE ONCE IV Last administered on 06/05/16 14:35; Start 06/05/16 at 14:15; Stop 06/05/16 at 14:16; Status DC Diltiazem HCl 20 mg 20 mg ONCE ONCE IV Last administered on 06/05/16 16:16; Start 06/05/16 at 14:15; Stop 06/05/16 at 14:16; Status DC Pharmacy Profile Note 0 ml @ 0 mls/hr UNSCH OTHER ; Start 06/05/16 at 15:45; Stop 06/21/16 at 14:20; Status DC Cefepime HCl/ Sodium Chloride (Maxipime Inj/NS Inj) 100 ml @ 200 mls/hr Q12H IV Last administered on 06/06/16 14:58; Start 06/06/16 at 02:00; Stop 06/06/16 at 19:04; Status DC Acetaminophen (Tylenol) 650 mg Q4H PRN PO FEVER/ PAIN 1-5 Last administered on 06/21/16 01:23; Start 06/05/16 at 15:45 Acetaminophen/ Hydrocodone Bitart ([place] 5-325 Mg) 1 tab Q4H PRN PO PAIN 6-10 Last administered on 06/29/16 05:56; Start 06/05/16 at 15:45 Hydromorphone HCl (Dilaudid Pf Inj) 0.2 mg Q4H PRN IV PUSH BREAKTHROUGH PAIN Last administered on 06/05/16 16:47; Start 06/05/16 at 15:45 Ondansetron HCl (Zofran Inj) 4 mg Q8HR PRN IV PUSH NAUSEA Last administered on 06/17/16 13:26; Start 06/05/16 at 15:45 Albuterol Sulfate (Proair Hfa Inh) 2 puff QID INH Last administered on 18:00; Start 06/05/16 at 18:00; Stop 06/16/16 at 20:36; Status DC Aspirin (Aspirin Chew) 81 mg DAILY CHEW Last administered on 06/29/16 08:32; Start 06/06/16 at 09:00 Budesonide/ Formoterol Fumarate (Symbicort 160-4.5 Inh) 2 puff BID INH Last administered on 06/29/16 08:35; Start 06/05/16 at 21:00 Lisinopril (Prinivil) 20 mg DAILY PO Last administered on 06/29/16 08:32; Start 06/06/16 at 09:00 Tiotropium [place] (Spiriva Inh) 18 mcg DAILY INH Last administered on 09:01; Start 06/06/16 at 09:00; Stop 06/16/16 at 20:30; Status DC Diltiazem HCl (Cardizem Cd) 180 mg DAILY PO Last administered on 06/18/16 09: 50; Start 06/06/16 at 09:00; Stop 06/19/16 at 05:49; Status DC Insulin Detemir (Levemir Inj) 8 units HS SQ Last administered on 06/09/16 20:35 ; Start 06/05/16 at 21:00; Stop 06/13/16 at 16:27; Status DC Insulin Detemir (Levemir Inj) 12 units DAILY SQ Last administered on 06/09/16 09:00; Start 06/06/16 at 09:00; Stop 06/13/16 at 16:27; Status DC Naphazoline HCl (Clear Eyes Redness Relief 0.012% Opth Soln) 1 drop QID PRN EACH EYE EYE ITCH; Start 06/05/16 at 16:30 Albuterol Sulfate (Albuterol Neb) 0.63 mg Q6HR NEB PRN NEB SHORTNESS OF BREATH ; Start 06/05/16 at 15:45; Stop 06/09/16 at 09:32; Status DC Dextrose (D50w (Vial) Inj) 25 ml UNSCH PRN IV PUSH HYPOGLYCEMIA-SEE COMMENTS Last administered on 06/10/16 06:34; Start 06/05/16 at 15:45 Glucagon (Glucagon Inj) 1 mg UNSCH PRN OTHER HYPOGLYCEMIA-SEE COMMENTS; Start 06/05/16 at 15:45 Insulin Aspart 1 1 ACHS SLIDING SCALE SQ Last administered on 06/12/16 20:36; Start 06/05/16 at 16:00; Stop 06/13/16 at 05:08; Status DC Vancomycin HCl/ Sodium Chloride (Vancomycin Inj/ NS 500 ml Inj) 515 ml @ 250 mls/hr Q18H IV Last administered on 06/09/16 06:09; Start 06/06/16 at 06:00; Stop 06/09/16 at 10:22; Status DC Miscellaneous Information SPECIFIC LAB TO BE DRAWN:VANCOMYCIN TROUGH DATE TO... ONCE ONCE XX ; Start 06/08/16 at 11:45; Stop 06/08/16 at 11:46; Status DC Sodium Chloride (NS 500 ml Inj) 500 ml @ 500 mls/hr BOLUS ONCE IV Last administered on 06/05/16 20:36; Start 06/05/16 at 20:15; Stop 06/05/16 at 21:14; Status DC Albuterol/ Ipratropium (Duoneb Neb) 1 ampule Q4HR NEB PRN NEB SOB/WHEEZING; Start 06/05/16 at 20:30; Stop 06/09/16 at 09:30; Status DC Alprazolam (Xanax) 0.25 mg Q12HR PRN PO ANXIETY Last administered on 06/28/16 22:20; Start 06/06/16 at 13:00 Zolpidem Tartrate (Ambien) 5 mg HS PRN PO SLEEP Last administered on 06/28/16 22:22; Start 06/06/16 at 21:00 Furosemide (Lasix Inj) 20 mg ONCE ONCE IV PUSH Last administered on 06/08/16 08:45; Start 06/08/16 at 08:45; Stop 06/08/16 at 08:52; Status DC Miscellaneous Information SPECIFIC LAB TO BE DRAWN:VANCOMY... ONCE ONCE XX Last administered on 06/09/16 05:45; Start 06/09/16 at 05:45; Stop 06/09/16 at 05: 46; Status DC Furosemide (Lasix Inj) 40 mg STK-MED ONCE .ROUTE ; Start 06/08/16 at 17:02; Stop 06/08/16 at 17:03; Status DC Albuterol/ Ipratropium (Duoneb Neb) 1 ampule Q4HR NEB NEB Last administered on 06/13/16 11:11; Start 06/09/16 at 12:00; Stop 06/13/16 at 12:11; Status DC Albuterol Sulfate (Albuterol Neb) 0.63 mg Q2HR NEB PRN NEB SHORTNESS OF BREATH Last administered on 06/14/16 19:52; Start 06/09/16 at 10:00 Potassium Chloride 20 meq 20 meq ONCE ONCE PO Last administered on 06/09/16 09 :30; Start 06/09/16 at 09:30; Stop 06/09/16 at 09:45; Status DC Vancomycin HCl/ Sodium Chloride (Vancomycin Inj/ NS 250 ml Inj) 250 ml @ 250 mls/hr Q12H IV Last administered on 06/10/16 06:45; Start 06/09/16 at 18:00; Stop 06/10/16 at 21:19; Status DC Miscellaneous Information SPECIFIC LAB TO BE DILLAN... ONCE ONCE XX ; Start at 17:45; Stop 06/10/16 at 17:46; Status DC Furosemide (Lasix Inj) 20 mg DAILY IV PUSH Last administered on 06/20/16 08:09 ; Start 06/09/16 at 12:30; Stop 06/20/16 at 21:00; Status DC Potassium Chloride (KCl) 20 meq DAILY PO Last administered on 06/20/16 08:09; Start 06/09/16 at 12:30; Stop 06/20/16 at 11:10; Status DC Guaifenesin/ Codeine Phosphate (Robitussin Ac 200-20 Mg/10 ml Liq) 10 ml Q6H PRN PO COUGH Last administered on 06/26/16 21:09; Start 06/10/16 at 10:00 Lidocaine HCl (Xylocaine 2% Inj) 100 mg STK-MED ONCE .ROUTE ; Start 06/10/16 at 16:21; Stop 06/10/16 at 16:22; Status DC Lidocaine HCl 50 ml 50 ml STK-MED ONCE .ROUTE ; Start 06/10/16 at 16:34; Stop 06/10/16 at 16:35; Status DC Vancomycin HCl/ Sodium Chloride (Vancomycin Inj/ NS 250 ml Inj) 250 ml @ 250 mls/hr Q24H IV Last administered on 06/11/16 08:53; Start 06/11/16 at 08:00; Stop 06/11/16 at 09:09; Status DC Miscellaneous Information SPECIFIC LAB TO BE DRAWN:VA... ONCE ONCE XX ; Start 06/11/16 at 07:45; Stop 06/11/16 at 07:46; Status DC Vancomycin HCl/ Sodium Chloride (Vancomycin Inj/ NS 500 ml Inj) 515 ml @ 250 mls/hr Q18H IV Last administered on 06/13/16 08:26; Start 06/11/16 at 20:00; Stop 06/13/16 at 10:21; Status DC Miscellaneous Information SPECIFIC LAB TO BE DRAWN:VANCOMYCIN TROUGH DATE TO... ONCE ONCE XX Last administered on 06/13/16 07:45; Start 06/13/16 at 07:45; Stop 06/13/16 at 07:46; Status DC Methylprednisolone Sodium Succinate (SoluMEDROL INJ) 40 mg Q6H IV PUSH Last administered on 06/12/16 04:32; Start 06/11/16 at 11:00; Stop 06/12/16 at 08:28; Status DC Docusate Sodium 100 mg 100 mg BID PRN PO CONSTIPATION Last administered on 06/13 12:38; Start 06/11/16 at 10:30 Levofloxacin/ Dextrose (Levaquin 500 Mg Premix Inj) 100 ml @ 100 mls/hr Q24H IV Last administered on 06/12/16 18:13; Start 06/11/16 at 18:00; Stop 06/13/16 at 16:27; Status DC Methylprednisolone Sodium Succinate (SoluMEDROL INJ) 40 mg Q8HR IV PUSH Last administered on 06/13/16 12:38; Start 06/12/16 at 14:00; Stop 06/13/16 at 16:27 ; Status DC Insulin Aspart 1 1 ACHS SLIDING SCALE SQ Last administered on 06/27/16 21:00 ; Start 06/13/16 at 07:00 Vancomycin HCl/ Sodium Chloride (Vancomycin Inj/ NS 250 ml Inj) 262.5 ml @ 250 mls/hr Q24H IV Last administered on 06/21/16 08:43; Start 06/14/16 at 08:00; Stop 06/21/16 at 14:21; Status DC Miscellaneous Information SPECIFIC LAB TO BE DILLAN... ONCE ONCE XX ; Start at 07:45; Stop 06/16/16 at 07:46; Status DC Insulin Detemir (Levemir Inj) 10 units HS SQ ; Start 06/13/16 at 21:00; Stop 03/20 at 07:26; Status DC Insulin Detemir (Levemir Inj) 15 units DAILY SQ ; Start 06/14/16 at 09:00; Stop 06/14/16 at 09:00; Status DC Methylprednisolone Sodium Succinate (SoluMEDROL INJ) 40 mg Q12HR IV PUSH Last administered on 06/15/16 08:17; Start 06/13/16 at 21:00; Stop 06/15/16 at 13:31 ; Status DC Insulin Detemir (Levemir Inj) 8 units HS SQ Last administered on 06/27/16 22: 30; Start 06/14/16 at 21:00 Insulin Detemir (Levemir Inj) 12 units DAILY SQ Last administered on 06/18/16 09:00; Start 06/14/16 at 09:00; Stop 06/18/16 at 09:27; Status DC Pantoprazole Sodium (Protonix) 40 mg DAILY PO Last administered on 06/29/16 08 :31; Start 06/14/16 at 09:00 Prednisone (Deltasone) 40 mg DAILY PO Last administered on 06/17/16 08:39; Start 06/15/16 at 13:30; Stop 06/17/16 at 15:31; Status DC Miscellaneous Information SPECIFIC LAB TO BE DILLAN... ONCE ONCE XX ; Start at 07:45; Stop 06/17/16 at 07:46; Status DC Piperacillin Sod/ Tazobactam Sod (Zosyn 4.5 Gm Premix) 100 ml @ 200 mls/hr Q8H IV Last administered on 06/21/16 12:46; Start 06/16/16 at 21:00; Stop at 14:21; Status DC Levofloxacin (Levaquin) 500 mg Q24H PO Last administered on 06/23/16 21:28; Start 06/16/16 at 20:00; Stop 06/24/16 at 19:59; Status DC Albuterol/ Ipratropium (Duoneb Neb) 1 ampule QID NEB NEB Last administered on 06/26/16 15:42; Start 06/17/16 at 08:00; Stop 06/28/16 at 10:42; Status DC Methylprednisolone Sodium Succinate (SoluMEDROL INJ) 40 mg Q8H IV Last administered on 06/19/16 05:33; Start 06/17/16 at 13:00; Stop 06/19/16 at 08:37 ; Status DC Miscellaneous Information SPECIFIC LAB TO BE DRAWN:VANCOMYCIN TROUGH DATE TO... ONCE ONCE XX ; Start 06/18/16 at 07:45; Stop 06/18/16 at 07:46; Status DC Insulin Detemir (Levemir Inj) 18 units DAILY SQ Last administered on 06/29/16 08:38; Start 06/19/16 at 09:00 Diltiazem HCl (Cardizem Cd) 240 mg DAILY PO Last administered on 06/25/16 09: 13; Start 06/19/16 at 09:00; Stop 06/26/16 at 08:09; Status DC Methylprednisolone Sodium Succinate (SoluMEDROL INJ) 40 mg Q12HR IV Last administered on 06/21/16 08:45; Start 06/19/16 at 21:00; Stop 06/21/16 at 18:05 ; Status DC Hypromellose 2 drop 2 drop Q6H EACH EYE Last administered on 06/29/16 10:00; Start 06/19/16 at 10:00 Dextrose/Sodium Chloride (D5W-1/2 NS 1000 ml Inj) 1,000 ml @ 0 mls/hr Q0M IV ; Start 06/19/16 at 13:17; Stop 06/21/16 at 10:46; Status DC Albuterol Sulfate (Albuterol Concentrated Neb) 2.5 mg LOCKSTITCH BACK MAKER NEB ; Start 06/19 at 13:30; Stop 06/23/16 at 13:29; Status DC Furosemide (Lasix Inj) 20 mg BID@09,18 IV PUSH Last administered on 06/21/16 16:41; Start 06/20/16 at 18:00; Stop 06/21/16 at 18:06; Status DC Potassium Chloride (KCl) 20 meq BID PO Last administered on 06/21/16 08:43; Start 06/20/16 at 21:00; Stop 06/21/16 at 10:49; Status DC Albuterol Sulfate (Albuterol Neb) 2.5 mg STK-MED ONCE .ROUTE ; Start 06/20/16 at 11:33; Stop 06/20/16 at 11:34; Status DC Ketamine HCl (Ketalar Inj) 500 mg STK-MED ONCE .ROUTE ; Start 06/20/16 at 11:51 ; Stop 06/20/16 at 11:52; Status DC Albuterol Sulfate (Albuterol Neb) 2.5 mg UNSCH X1 PRN NEB SHORTNESS OF BREATH; Start 06/20/16 at 12:30; Stop 06/21/16 at 12:29; Status DC Lidocaine HCl (Xylocaine 2% Inj) 50 ml STK-MED ONCE E-TRACHE Last administered on 06/20/16 12:07; Start 06/20/16 at 12:07; Stop 06/20/16 at 12:48; Status DC Miscellaneous Information ALL NURSING DEPARTME... UNSCH PRN XX SEE LABEL COMMENTS; Start 06/20/16 at 12:42; Stop 06/21/16 at 12:41; Status DC Midazolam HCl (Versed Inj) 2 mg STK-MED ONCE .ROUTE ; Start 06/20/16 at 13:34; Stop 06/20/16 at 13:35; Status DC Lactobacillus Acidophilus (Lactinex) 1 tab TID PO Last administered on 08:31; Start 06/21/16 at 13:00 Potassium Chloride (KCl) 40 meq BID PO Last administered on 06/22/16 21:23; Start 06/21/16 at 21:00; Stop 06/23/16 at 05:34; Status DC Potassium Chloride (KCl) 40 meq ONCE ONCE PO Last administered on 06/21/16 12 :45; Start 06/21/16 at 11:00; Stop 06/21/16 at 11:08; Status DC Miscellaneous Information SPECIFIC LAB TO BE DILLAN... ONCE ONCE XX ; Start at 07:45; Stop 06/24/16 at 07:45; Status DC Prednisone (Deltasone) 20 mg DAILY PO Last administered on 06/23/16 08:42; Start 06/22/16 at 09:00; Stop 06/23/16 at 19:23; Status DC Furosemide (Lasix) 40 mg DAILY PO Last administered on 06/29/16 08:38; Start 06/22/16 at 09:00 Fluconazole (Diflucan) 400 mg DAILY PO Last administered on 06/23/16 08:42; Start 06/22/16 at 09:00; Stop 06/23/16 at 12:29; Status DC Metronidazole (Flagyl) 500 mg Q8HR PO Last administered on 06/29/16 05:56; Start 06/22/16 at 14:00; Stop 07/06/16 at 13:59 Amiodarone HCl (Cordarone) 400 mg Q12HR PO ; Start 06/23/16 at 09:00; Stop 06/23 at 09:00; Status DC Amiodarone HCl 400 mg 400 mg ONCE ONCE PO ; Start 06/23/16 at 03:45; Stop 06/23 at 03:45; Status DC Amiodarone HCl 150 mg/Dextrose 100 ml @ 600 mls/hr ONCE ONCE IV Last administered on 06/23/16 04:10; Start 06/23/16 at 03:45; Stop 06/23/16 at 17:26 ; Status DC Amiodarone HCl/ Dextrose (Cordarone Inj/ D5W ([place]) Inj) 259 ml @ 0 mls/hr CONTINUOUS IV Last administered on 06/23/16 04:30; Start 06/23/16 at 03:45; Stop 06/23/16 at 17:26; Status DC Potassium Chloride (KCl) 20 meq DAILY PO Last administered on 06/29/16 08:31; Start 06/23/16 at 09:00 Potassium Phosphate (K-Phos) 1,000 mg Q12HR PO Last administered on 06/29/16 08:32; Start 06/23/16 at 09:00 Prednisone (Deltasone) 15 mg DAILY PO Last administered on 06/27/16 08:41; Start 06/24/16 at 09:00; Stop 06/27/16 at 12:53; Status DC Propofol (Diprivan 200 Mg/20 ml Inj) 200 mg STK-MED ONCE IV ; Start 06/20/16 at 12:00; Stop 06/24/16 at 13:32; Status DC Diltiazem HCl (Cardizem Cd) 120 mg DAILY PO Last administered on 06/26/16 10: 54; Start 06/26/16 at 09:00; Stop 06/27/16 at 07:28; Status DC Metoprolol Tartrate (Lopressor) 12.5 mg Q12HR PO Last administered on 2/23/ 17at 21:09; Start 06/26/16 at 09:00; Stop 06/27/16 at 07:28; Status DC Miscellaneous (Pill Splitter) 1 ea UNSCH PRN OTHER SEE LABEL COMMENTS; Start at 08:30 Propofol (Diprivan 200 Mg/20 ml Inj) 60 mg STK-MED ONCE IV ; Start 06/26/16 at 12:43; Stop 06/26/16 at 12:56; Status DC Miscellaneous Information ALL NURSING DEPARTME... UNSCH PRN XX SEE LABEL COMMENTS; Start 06/26/16 at 13:45; Stop 06/27/16 at 13:44; Status DC Metoprolol Tartrate (Lopressor) 50 mg Q12HR PO Last administered on 06/29/16 08:31; Start 06/27/16 at 09:00 Heparin Sodium (Porcine) (Heparin Inj) 5,000 units Q12HR SQ Last administered on 06/28/16 09:57; Start 06/27/16 at 11:00 Prednisone (Deltasone) 10 mg DAILY PO Last administered on 06/29/16 08:32; Start 06/28/16 at 09:00 Voriconazole 200 mg 200 mg Q12HR PO Last administered on 06/29/16 08:31; Start 06/27/16 at 15:33 Pharmacy Profile Note ([facility]) 0 ml @ 0 mls/hr UNSCH OTHER ; Start 06/27/16 at 14:00 A/P Problem List: (1) SVT (supraventricular tachycardia) ICD Code: I47.1 Status: Acute (2) Severe sepsis ICD Code: A41.9 Status: Acute (3) COPD with acute exacerbation ICD Code: J44.1 Status: Acute (4) Sepsis ICD Code: A41.9 Status: Acute (5) Cellulitis of right upper extremity ICD Code: L03.113 Status: Acute (6) Abscess of hand, right ICD Code: L02.511 Status: Acute (7) Olecranon bursitis, right elbow ICD Code: M70.21 Status: Acute Assessment and Plan severe sepsis due to cellulitis of the right upper extremity/ right olecranon bursitis resolved - venous doppler of the upper extremities with no DVT-XR of the right elbow with possible olecranon bursitis- -US of the right upper extremity with a complex mass overlying the right third finger- s/p I/D of the right nand mass/fluid collection. -S/p vancomycin culture positive for MRSA- keep the right hand elevated- continue pain control -ID/hand surgery and ortho following; recommended conservative treatment of olecranon bursitis. HAP - Stable status post Zosyn and Levaquin. Repeat chest x-ray stable. Bronchial washings culture with Aspergillus niger, on Variconazole- treatment per ID Pulmonary nodules. Status post bronchoscopy negative cytology. Repeat CT in 2 months -Pulm signed off. SVT - due to sepsis-on beta rosy - cardiology consult appreciated. ischemic cardiomyopathy - s/p stent placement 2001, follow-up angiogram 2 weeks ago no intervention needed per patient; continue aspirin and lisinopril - elevated troponin likely due to tachycardia/ sepsis. on asa -echo with EF 35% cautious use of BB hx of COPD -cardiology reconsulted 2/2 VT felt to be secondary to NAN . Info from Dr Vora shows ECHO May 2016 with normal EF and cath from 2014 (Dec per pt) with stable CAD. Elevated trop likely from sepsis acute on chronic systolic CHF - continue Lasix and monitor electrolytes. -improving. on oral medication. COPD exacerbation -improving dyspnea on exertion continue steroids and neb treatment- will monitor. of note the patient is on home oxygen. Diabetes with hypoglycemic episode -with no further hypoglycemia. Hyperglycemic secondary to steroids and noncompliance(refusing fingersticks and Levemir because he does not want to be poked). - Adjust Levemir accordingly.- accu-check with SSI. Patient again counseled regarding compliance anemia of chronic disease - s/p PRBC transfusion with improved H/H- will monitor -stool occult blood positive 1. Continue PPI and consulted GI for endoscopy which showed gastritis and esophageal ring status post dilatations and biopsy. ok with GI to restart aspirin. Hypertension. - Improving with Lasix and beta rosy status post Cardizem. Dry eyes. -Eye lubricants. -C. difficile colitis. - Improving no diarrhea Continue Lactinex and Flagyl until July 06. Monitor electrolytes DVT prophylaxis ; SCD's and subcutaneous heparin Dispo: difficulty with placement. recommended for SNF and due to hx hard to find placement. Asia Gonsales MD Jun 29, 2016 12:57
--- NOTE | 2016-06-29 13:34 | PD.CARD.PN ---
Subjective Subjective Remarks Still moderately dyspneic with minimal exertion. No CP, dizziness, palpitations , PND. Objective Medications Item Value Date Time Heparin Sodium 5,000 units 06/27/16 1100 (Porcine) Q12HR/SQ (Heparin Inj) Metoprolol 50 mg 06/27/16 0900 Tartrate Q12HR/PO 06/29/16 0831 (Lopressor) Potassium Chloride 20 meq 06/23/16 0900 (KCl) DAILY/PO 06/29/16 0831 Potassium 1,000 mg 06/23/16 0900 Phosphate Q12HR/PO 06/29/16 0832 (K-Phos) Furosemide 40 mg 06/22/16 0900 (Lasix) DAILY/PO 06/29/16 0838 Aspirin 81 mg 06/06/16 0900 (Aspirin Chew) DAILY/CHEW 06/29/16 0832 Lisinopril 20 mg 06/06/16 0900 (Prinivil) DAILY/PO 06/29/16 0832 Vital Signs / I&O Vital Signs Date Time Temp Pulse Resp B/P Pulse Ox O2 Delivery O2 Flow Rate FiO2 06/29/16 12:00 95.6 92 18 107/79 95 06/29/16 11:18 94 06/29/16 09:29 97 Nasal Cannula 3.00 06/29/16 08:44 92 Nasal Cannula 3.00 06/29/16 08:00 96.7 93 18 115/68 90 06/29/16 04:30 98.1 74 20 110/56 93 06/29/16 02:30 Nasal Cannula 2.00 06/29/16 00:45 98.1 64 20 118/58 93 06/28/16 20:56 98.0 62 20 114/56 91 06/28/16 16:00 97.6 80 23 99/51 98 I/O 06/28/16 06/28/16 06/28/16 06/29/16 06/29/16 06/29/16 07:00 15:00 23:00 07:00 15:00 23:00 Intake Total 360 ml 240 ml Output Total 250 ml Balance -250 ml 360 ml 240 ml Intake Oral 360 ml 240 ml Output Urine Total 250 ml # Voids 2 2 1 # Bowel Movements 1 Physical Exam GENERAL: Well developed, well nourished. No acute distress. HEENT: Jugular venous pressure is normal. CHEST: Diminished breath sounds diffusely. CARDIAC: Regular rate and rhythm without S3, S4, or murmur. ABDOMEN: Soft, nontender, no hepatosplenomegaly. Bowel sounds present. EXTREMITIES: No clubbing, cyanosis, or edema. Assessment and Plan Problem List: (1) VT (ventricular tachycardia) Assessment and Plan: Stable overnight. Monitoring strips reviewed. No further VT evident. (2) Cardiomyopathy Assessment and Plan: EF 30-35% by echo this admission. Overall stable. Compensated. Continue beta rosy, GUANACO-I, diuretic. (3) CAD (coronary artery disease) Assessment and Plan: Stable. No definite angina symptoms. Continue medical therapy. (4) SVT (supraventricular tachycardia) Code Status full code Discussed Condition With patient Problem Qualifiers (1) Cardiomyopathy: Qualified Code: I25.5 - Ischemic cardiomyopathy (2) CAD (coronary artery disease): Qualified Code: I25.10 - Coronary artery disease involving stebbins coronary artery of stebbins heart without angina pectoris Tyrell Holt MD Jun 29, 2016 13:34
--- NOTE | 2016-06-29 17:01 | HHI.PR ---
Subjective Remarks Improved further. 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 Now on Voriconazole No fever. Objective Vital Signs Date Time Temp Pulse Resp B/P Pulse Ox O2 Delivery O2 Flow Rate FiO2 06/29/16 16:00 96.7 90 18 132/68 95 06/29/16 12:00 95.6 92 18 107/79 95 06/29/16 11:18 94 06/29/16 09:29 97 Nasal Cannula 3.00 06/29/16 08:44 92 Nasal Cannula 3.00 06/29/16 08:00 96.7 93 18 115/68 90 06/29/16 04:30 98.1 74 20 110/56 93 06/29/16 02:30 Nasal Cannula 2.00 06/29/16 00:45 98.1 64 20 118/58 93 06/28/16 20:56 98.0 62 20 114/56 91 I/O 06/28/16 06/28/16 06/28/16 06/29/16 06/29/16 06/29/16 07:00 15:00 23:00 07:00 15:00 23:00 Intake Total 360 ml 240 ml Output Total 250 ml Balance -250 ml 360 ml 240 ml Intake Oral 360 ml 240 ml Output Urine Total 250 ml # Voids 2 2 1 2 # Bowel Movements 1 2 Result Diagram: 06/26/16 0856 Objective Remarks This is an elderly averagely built white male who is pale and not dyspneic at rest. EXTREMITIES: There is no clubbing. There is no leg edema. HEENT: Head normocephalic. Pupils are reactive and equal. Tongue was moist. Throat was clear. Ears, no inflammation. NECK: Supple. No venous distension. No thyromegaly or lymphadenopathy. CHEST: Decreased breath sounds at the bases with occ wheezes over both lung saab. HEART: The heart sounds are regular S1-S2 with no murmur. No S3. ABDOMEN: The abdomen is soft, nontender. No organomegaly. The bowel sounds are active. EXTREMITIES: Edema 1+ with diminished pulses and joint deformities of the extremities. SKIN: Cool, dry. NEUROLOGIC: He is alert and oriented. Moves all extremities.There are no deficits. Assessment and Plan Assessment and Plan IMPRESSION 1. Cellulitis of the right upper extremity resolving. 2. COPD with emphysema and chronic bronchitis 3. Coronary artery disease with stenting 4. Diabetes mellitus 5. History of hypertension. 6. Left Lung nodules Plan : 1. PT evaluation and ambulate. 2. Cont Nebs qid , duoneb. 3. O2 at 2L. 4. Continue lasix 40 mg Po daily. 5. Taper Prednisone to 5 mg daily 6. Voriconazole PO per Dr Velez 7. CT chest in 2 mths. 8. Home anytime Liv Pinedo MD Jun 29, 2016 17:01
[2016-06-29] MEDS: ZOLPIDEM TARTRATE 5 MG TAB PO PRN (22:02)
[2016-06-30] VITALS (9 sets, daily range): BP systolic 110–153; BP diastolic 64–70; PULSE 80–108; RESP 18–21; TEMP 96.8–97.9; O2SAT 92–98
[2016-06-30] MEDS: ACETAMINOPHEN/HYDROcodone 325 MG/5 MG TAB PO PRN ×3 (03:12→22:32)
[2016-06-30] MEDS: ALPRAZolam 0.25 MG TAB PO PRN (03:13)
[2016-06-30] MEDS: HYPROMELLOSE 0.3 % OPTH GEL 10 GM (0.34 FL OZ) TUBE EACH EYE SCH ×4 (03:55→22:33)
[2016-06-30] MEDS: metroNIDAZOLE 500 MG TAB PO SCH ×3 (06:40→22:30)
[2016-06-30] MEDS: INSULIN ASPART SUPPLEMENTAL SCALE SQ SCH ×4 (07:00→21:00)
[2016-06-30] MEDS: INSULIN DETEMIR 100 UNITS/ML VIAL SQ SCH ×3 (09:00→21:00)
[2016-06-30] MEDS: HEPARIN SODIUM - SQ 10,000 UNITS/ML VIAL SQ SCH ×3 (09:00→21:00)
[2016-06-30] MEDS: METOPROLOL TARTRATE 50 MG TAB PO SCH ×2 (09:26→22:30)
[2016-06-30] MEDS: predniSONE 10 MG TAB PO SCH (09:26)
[2016-06-30] MEDS: VORICONAZOLE 200 MG TAB PO SCH ×2 (09:26→22:28)
[2016-06-30] MEDS: FUROSEMIDE 40 MG TAB PO SCH (09:28)
[2016-06-30] MEDS: PANTOPRAZOLE SOD 40 MG DELAYED RELEASE TAB PO SCH (09:28)
[2016-06-30] MEDS: LISINOPRIL 20 MG TAB PO SCH (09:28)
[2016-06-30] MEDS: ASPIRIN 81 MG CHEW TAB CHEW SCH (09:28)
[2016-06-30] MEDS: POTASSIUM PHOSPHATE MONOBASIC 500 MG TAB PO SCH ×2 (09:28→22:31)
[2016-06-30] MEDS: LACTOBACILLUS ACIDOPHILUS TAB PO SCH ×3 (09:28→18:40)
[2016-06-30] MEDS: POTASSIUM CHLORIDE 20 MEQ CONTROLLED RELEASE TAB PO SCH (09:29)
[2016-06-30] MEDS: SODIUM CHLORIDE 0.9% FLUSH 5 ML FLUSH IVF PRN (09:30)
[2016-06-30] MEDS: BUDESONIDE-FORMOTEROL 160/4.5 MCG INHALER INH SCH ×2 (09:33→22:33)
--- NOTE | 2016-06-30 16:38 | HHI.PR ---
Subjective Remarks Patient has no complaints. Denied any SOB, CP, or N/V. he stated he is doing well. Objective Vitals Vital Signs Date Time Temp Pulse Resp B/P Pulse Ox O2 Delivery O2 Flow Rate FiO2 06/30/16 16:00 97.9 84 20 110/70 93 06/30/16 12:23 92 06/30/16 12:00 97.0 108 21 112/64 96 06/30/16 08:00 97.0 101 20 130/65 96 06/30/16 07:29 97 21 06/30/16 04:16 96.8 86 18 118/70 97 06/30/16 00:34 96.8 80 18 120/68 98 06/29/16 20:00 96.6 82 16 117/71 98 06/29/16 18:00 86 I/O 06/29/16 06/29/16 06/29/16 06/30/16 06/30/16 06/30/16 07:00 15:00 23:00 07:00 15:00 23:00 Intake Total 240 ml 360 ml 360 ml 360 ml Output Total 150 ml 350 ml 525 ml Balance 240 ml 210 ml 10 ml -165 ml Intake Oral 240 ml 360 ml 360 ml 360 ml Output Urine Total 150 ml 350 ml 525 ml # Voids 1 2 # Bowel Movements 2 1 2 Result Diagram: 06/26/16 0856 Objective Remarks Gen NAD CV RRR. no r/m/g Abd: soft NDNT Ext elbow no erythema, or swelling noted. full ROM. no pain. Procedures Incision and drainage of right hand abscess Bronchoscopy EGD with dilatation Medications and IVs Current Medications IV Flush (NS Flush) 2 ml UNSCH PRN IVF FLUSH AFTER USING IV ACCESS Last administered on 06/30/16 09:30; Start 06/05/16 at 12:30 Adenosine (Adenocard Inj) 6 mg ONCE ONCE IV PUSH Last administered on 13:36; Start 06/05/16 at 12:30; Stop 06/05/16 at 12:31; Status DC Adenosine (Adenocard Inj) 12 mg ONCE ONCE IV PUSH Last administered on 13:37; Start 06/05/16 at 12:30; Stop 06/05/16 at 12:31; Status DC Adenosine (Adenocard Inj) 18 mg STK-MED ONCE .ROUTE ; Start 06/05/16 at 12:29; Stop 06/05/16 at 12:30; Status DC Adenosine (Adenocard Inj) 6 mg STK-MED ONCE .ROUTE ; Start 06/05/16 at 12:31; Stop 06/05/16 at 12:32; Status DC Adenosine (Adenocard Inj) 6 mg ONCE ONCE IV PUSH ; Start 06/05/16 at 12:45; Stop 06/05/16 at 12:46; Status DC Adenosine (Adenocard Inj) 12 mg ONCE ONCE IV PUSH ; Start 06/05/16 at 12:45; Stop 06/05/16 at 12:46; Status DC Diltiazem HCl (Cardizem Inj) 25 mg STK-MED ONCE .ROUTE ; Start 06/05/16 at 12:41 ; Stop 06/05/16 at 12:42; Status DC Diltiazem HCl (Cardizem Inj) 25 mg ONCE ONCE IV Last administered on 06/05/16 13:38; Start 06/05/16 at 13:15; Stop 06/05/16 at 13:16; Status DC Diltiazem HCl 25 mg 25 mg STK-MED ONCE .ROUTE Last administered on 06/05/16 13: 37; Start 06/05/16 at 13:02; Stop 06/05/16 at 13:03; Status DC Vancomycin HCl 1200 mg/Sodium Chloride 262 ml @ 250 mls/hr ONCE ONCE IV Last administered on 06/05/16 14:45; Start 06/05/16 at 13:15; Stop 06/05/16 at 14:17; Status DC Cefepime HCl 2000 mg/Sodium Chloride 100 ml @ 200 mls/hr ONCE ONCE IV Last administered on 06/05/16 16:13; Start 06/05/16 at 13:15; Stop 06/05/16 at 13:44; Status DC Diltiazem HCl/ Sodium Chloride (Cardizem Inj/NS Inj) 125 ml @ 0 mls/hr TITRATE IV Last administered on 06/11/16 21:47; Start 06/05/16 at 13:30; Stop 06/12/16 at 08:27; Status DC Diltiazem HCl (Cardizem Inj) 20 mg ONCE ONCE IV Last administered on 06/05/16 14:35; Start 06/05/16 at 14:15; Stop 06/05/16 at 14:16; Status DC Diltiazem HCl 20 mg 20 mg ONCE ONCE IV Last administered on 06/05/16 16:16; Start 06/05/16 at 14:15; Stop 06/05/16 at 14:16; Status DC Pharmacy Profile Note 0 ml @ 0 mls/hr UNSCH OTHER ; Start 06/05/16 at 15:45; Stop 06/21/16 at 14:20; Status DC Cefepime HCl/ Sodium Chloride (Maxipime Inj/NS Inj) 100 ml @ 200 mls/hr Q12H IV Last administered on 06/06/16 14:58; Start 06/06/16 at 02:00; Stop 06/06/16 at 19:04; Status DC Acetaminophen (Tylenol) 650 mg Q4H PRN PO FEVER/ PAIN 1-5 Last administered on 06/21/16 01:23; Start 06/05/16 at 15:45 Acetaminophen/ Hydrocodone Bitart ([place] 5-325 Mg) 1 tab Q4H PRN PO PAIN 6-10 Last administered on 06/30/16 14:09; Start 06/05/16 at 15:45 Hydromorphone HCl (Dilaudid Pf Inj) 0.2 mg Q4H PRN IV PUSH BREAKTHROUGH PAIN Last administered on 06/05/16 16:47; Start 06/05/16 at 15:45 Ondansetron HCl (Zofran Inj) 4 mg Q8HR PRN IV PUSH NAUSEA Last administered on 06/17/16 13:26; Start 06/05/16 at 15:45 Albuterol Sulfate (Proair Hfa Inh) 2 puff QID INH Last administered on 18:00; Start 06/05/16 at 18:00; Stop 06/16/16 at 20:36; Status DC Aspirin (Aspirin Chew) 81 mg DAILY CHEW Last administered on 06/30/16 09:28; Start 06/06/16 at 09:00 Budesonide/ Formoterol Fumarate (Symbicort 160-4.5 Inh) 2 puff BID INH Last administered on 06/30/16 09:33; Start 06/05/16 at 21:00 Lisinopril (Prinivil) 20 mg DAILY PO Last administered on 06/30/16 09:28; Start 06/06/16 at 09:00 Tiotropium [place] (Spiriva Inh) 18 mcg DAILY INH Last administered on 09:01; Start 06/06/16 at 09:00; Stop 06/16/16 at 20:30; Status DC Diltiazem HCl (Cardizem Cd) 180 mg DAILY PO Last administered on 06/18/16 09: 50; Start 06/06/16 at 09:00; Stop 06/19/16 at 05:49; Status DC Insulin Detemir (Levemir Inj) 8 units HS SQ Last administered on 06/09/16 20:35 ; Start 06/05/16 at 21:00; Stop 06/13/16 at 16:27; Status DC Insulin Detemir (Levemir Inj) 12 units DAILY SQ Last administered on 06/09/16 09:00; Start 06/06/16 at 09:00; Stop 06/13/16 at 16:27; Status DC Naphazoline HCl (Clear Eyes Redness Relief 0.012% Opth Soln) 1 drop QID PRN EACH EYE EYE ITCH; Start 06/05/16 at 16:30 Albuterol Sulfate (Albuterol Neb) 0.63 mg Q6HR NEB PRN NEB SHORTNESS OF BREATH ; Start 06/05/16 at 15:45; Stop 06/09/16 at 09:32; Status DC Dextrose (D50w (Vial) Inj) 25 ml UNSCH PRN IV PUSH HYPOGLYCEMIA-SEE COMMENTS Last administered on 06/10/16 06:34; Start 06/05/16 at 15:45 Glucagon (Glucagon Inj) 1 mg UNSCH PRN OTHER HYPOGLYCEMIA-SEE COMMENTS; Start 06/05/16 at 15:45 Insulin Aspart 1 1 ACHS SLIDING SCALE SQ Last administered on 06/12/16 20:36; Start 06/05/16 at 16:00; Stop 06/13/16 at 05:08; Status DC Vancomycin HCl/ Sodium Chloride (Vancomycin Inj/ NS 500 ml Inj) 515 ml @ 250 mls/hr Q18H IV Last administered on 06/09/16 06:09; Start 06/06/16 at 06:00; Stop 06/09/16 at 10:22; Status DC Miscellaneous Information SPECIFIC LAB TO BE DRAWN:VANCOMYCIN TROUGH DATE TO... ONCE ONCE XX ; Start 06/08/16 at 11:45; Stop 06/08/16 at 11:46; Status DC Sodium Chloride (NS 500 ml Inj) 500 ml @ 500 mls/hr BOLUS ONCE IV Last administered on 06/05/16 20:36; Start 06/05/16 at 20:15; Stop 06/05/16 at 21:14; Status DC Albuterol/ Ipratropium (Duoneb Neb) 1 ampule Q4HR NEB PRN NEB SOB/WHEEZING; Start 06/05/16 at 20:30; Stop 06/09/16 at 09:30; Status DC Alprazolam (Xanax) 0.25 mg Q12HR PRN PO ANXIETY Last administered on 06/30/16 03:13; Start 06/06/16 at 13:00 Zolpidem Tartrate (Ambien) 5 mg HS PRN PO SLEEP Last administered on 06/29/16 22:02; Start 06/06/16 at 21:00 Furosemide (Lasix Inj) 20 mg ONCE ONCE IV PUSH Last administered on 06/08/16 08:45; Start 06/08/16 at 08:45; Stop 06/08/16 at 08:52; Status DC Miscellaneous Information SPECIFIC LAB TO BE DRAWN:VANCOMY... ONCE ONCE XX Last administered on 06/09/16 05:45; Start 06/09/16 at 05:45; Stop 06/09/16 at 05: 46; Status DC Furosemide (Lasix Inj) 40 mg STK-MED ONCE .ROUTE ; Start 06/08/16 at 17:02; Stop 06/08/16 at 17:03; Status DC Albuterol/ Ipratropium (Duoneb Neb) 1 ampule Q4HR NEB NEB Last administered on 06/13/16 11:11; Start 06/09/16 at 12:00; Stop 06/13/16 at 12:11; Status DC Albuterol Sulfate (Albuterol Neb) 0.63 mg Q2HR NEB PRN NEB SHORTNESS OF BREATH Last administered on 06/14/16 19:52; Start 06/09/16 at 10:00 Potassium Chloride 20 meq 20 meq ONCE ONCE PO Last administered on 06/09/16 09 :30; Start 06/09/16 at 09:30; Stop 06/09/16 at 09:45; Status DC Vancomycin HCl/ Sodium Chloride (Vancomycin Inj/ NS 250 ml Inj) 250 ml @ 250 mls/hr Q12H IV Last administered on 06/10/16 06:45; Start 06/09/16 at 18:00; Stop 06/10/16 at 21:19; Status DC Miscellaneous Information SPECIFIC LAB TO BE DILLAN... ONCE ONCE XX ; Start at 17:45; Stop 06/10/16 at 17:46; Status DC Furosemide (Lasix Inj) 20 mg DAILY IV PUSH Last administered on 06/20/16 08:09 ; Start 06/09/16 at 12:30; Stop 06/20/16 at 21:00; Status DC Potassium Chloride (KCl) 20 meq DAILY PO Last administered on 06/20/16 08:09; Start 06/09/16 at 12:30; Stop 06/20/16 at 11:10; Status DC Guaifenesin/ Codeine Phosphate (Robitussin Ac 200-20 Mg/10 ml Liq) 10 ml Q6H PRN PO COUGH Last administered on 06/26/16 21:09; Start 06/10/16 at 10:00 Lidocaine HCl (Xylocaine 2% Inj) 100 mg STK-MED ONCE .ROUTE ; Start 06/10/16 at 16:21; Stop 06/10/16 at 16:22; Status DC Lidocaine HCl 50 ml 50 ml STK-MED ONCE .ROUTE ; Start 06/10/16 at 16:34; Stop 06/10/16 at 16:35; Status DC Vancomycin HCl/ Sodium Chloride (Vancomycin Inj/ NS 250 ml Inj) 250 ml @ 250 mls/hr Q24H IV Last administered on 06/11/16 08:53; Start 06/11/16 at 08:00; Stop 06/11/16 at 09:09; Status DC Miscellaneous Information SPECIFIC LAB TO BE DRAWN:VA... ONCE ONCE XX ; Start 06/11/16 at 07:45; Stop 06/11/16 at 07:46; Status DC Vancomycin HCl/ Sodium Chloride (Vancomycin Inj/ NS 500 ml Inj) 515 ml @ 250 mls/hr Q18H IV Last administered on 06/13/16 08:26; Start 06/11/16 at 20:00; Stop 06/13/16 at 10:21; Status DC Miscellaneous Information SPECIFIC LAB TO BE DRAWN:VANCOMYCIN TROUGH DATE TO... ONCE ONCE XX Last administered on 06/13/16 07:45; Start 06/13/16 at 07:45; Stop 06/13/16 at 07:46; Status DC Methylprednisolone Sodium Succinate (SoluMEDROL INJ) 40 mg Q6H IV PUSH Last administered on 06/12/16 04:32; Start 06/11/16 at 11:00; Stop 06/12/16 at 08:28; Status DC Docusate Sodium 100 mg 100 mg BID PRN PO CONSTIPATION Last administered on 06/13 12:38; Start 06/11/16 at 10:30 Levofloxacin/ Dextrose (Levaquin 500 Mg Premix Inj) 100 ml @ 100 mls/hr Q24H IV Last administered on 06/12/16 18:13; Start 06/11/16 at 18:00; Stop 06/13/16 at 16:27; Status DC Methylprednisolone Sodium Succinate (SoluMEDROL INJ) 40 mg Q8HR IV PUSH Last administered on 06/13/16 12:38; Start 06/12/16 at 14:00; Stop 06/13/16 at 16:27 ; Status DC Insulin Aspart 1 1 ACHS SLIDING SCALE SQ Last administered on 06/27/16 21:00 ; Start 06/13/16 at 07:00 Vancomycin HCl/ Sodium Chloride (Vancomycin Inj/ NS 250 ml Inj) 262.5 ml @ 250 mls/hr Q24H IV Last administered on 06/21/16 08:43; Start 06/14/16 at 08:00; Stop 06/21/16 at 14:21; Status DC Miscellaneous Information SPECIFIC LAB TO BE DILLAN... ONCE ONCE XX ; Start at 07:45; Stop 06/16/16 at 07:46; Status DC Insulin Detemir (Levemir Inj) 10 units HS SQ ; Start 06/13/16 at 21:00; Stop 03/20 at 07:26; Status DC Insulin Detemir (Levemir Inj) 15 units DAILY SQ ; Start 06/14/16 at 09:00; Stop 06/14/16 at 09:00; Status DC Methylprednisolone Sodium Succinate (SoluMEDROL INJ) 40 mg Q12HR IV PUSH Last administered on 06/15/16 08:17; Start 06/13/16 at 21:00; Stop 06/15/16 at 13:31 ; Status DC Insulin Detemir (Levemir Inj) 8 units HS SQ Last administered on 06/27/16 22: 30; Start 06/14/16 at 21:00 Insulin Detemir (Levemir Inj) 12 units DAILY SQ Last administered on 06/18/16 09:00; Start 06/14/16 at 09:00; Stop 06/18/16 at 09:27; Status DC Pantoprazole Sodium (Protonix) 40 mg DAILY PO Last administered on 06/30/16 09 :28; Start 06/14/16 at 09:00 Prednisone (Deltasone) 40 mg DAILY PO Last administered on 06/17/16 08:39; Start 06/15/16 at 13:30; Stop 06/17/16 at 15:31; Status DC Miscellaneous Information SPECIFIC LAB TO BE DILLAN... ONCE ONCE XX ; Start at 07:45; Stop 06/17/16 at 07:46; Status DC Piperacillin Sod/ Tazobactam Sod (Zosyn 4.5 Gm Premix) 100 ml @ 200 mls/hr Q8H IV Last administered on 06/21/16 12:46; Start 06/16/16 at 21:00; Stop at 14:21; Status DC Levofloxacin (Levaquin) 500 mg Q24H PO Last administered on 06/23/16 21:28; Start 06/16/16 at 20:00; Stop 06/24/16 at 19:59; Status DC Albuterol/ Ipratropium (Duoneb Neb) 1 ampule QID NEB NEB Last administered on 06/26/16 15:42; Start 06/17/16 at 08:00; Stop 06/28/16 at 10:42; Status DC Methylprednisolone Sodium Succinate (SoluMEDROL INJ) 40 mg Q8H IV Last administered on 06/19/16 05:33; Start 06/17/16 at 13:00; Stop 06/19/16 at 08:37 ; Status DC Miscellaneous Information SPECIFIC LAB TO BE DRAWN:VANCOMYCIN TROUGH DATE TO... ONCE ONCE XX ; Start 06/18/16 at 07:45; Stop 06/18/16 at 07:46; Status DC Insulin Detemir (Levemir Inj) 18 units DAILY SQ Last administered on 06/29/16 08:38; Start 06/19/16 at 09:00 Diltiazem HCl (Cardizem Cd) 240 mg DAILY PO Last administered on 06/25/16 09: 13; Start 06/19/16 at 09:00; Stop 06/26/16 at 08:09; Status DC Methylprednisolone Sodium Succinate (SoluMEDROL INJ) 40 mg Q12HR IV Last administered on 06/21/16 08:45; Start 06/19/16 at 21:00; Stop 06/21/16 at 18:05 ; Status DC Hypromellose 2 drop 2 drop Q6H EACH EYE Last administered on 06/30/16 09:33; Start 06/19/16 at 10:00 Dextrose/Sodium Chloride (D5W-1/2 NS 1000 ml Inj) 1,000 ml @ 0 mls/hr Q0M IV ; Start 06/19/16 at 13:17; Stop 06/21/16 at 10:46; Status DC Albuterol Sulfate (Albuterol Concentrated Neb) 2.5 mg MATH PROFESSOR NEB ; Start 06/19 at 13:30; Stop 06/23/16 at 13:29; Status DC Furosemide (Lasix Inj) 20 mg BID@09,18 IV PUSH Last administered on 06/21/16 16:41; Start 06/20/16 at 18:00; Stop 06/21/16 at 18:06; Status DC Potassium Chloride (KCl) 20 meq BID PO Last administered on 06/21/16 08:43; Start 06/20/16 at 21:00; Stop 06/21/16 at 10:49; Status DC Albuterol Sulfate (Albuterol Neb) 2.5 mg STK-MED ONCE .ROUTE ; Start 06/20/16 at 11:33; Stop 06/20/16 at 11:34; Status DC Ketamine HCl (Ketalar Inj) 500 mg STK-MED ONCE .ROUTE ; Start 06/20/16 at 11:51 ; Stop 06/20/16 at 11:52; Status DC Albuterol Sulfate (Albuterol Neb) 2.5 mg UNSCH X1 PRN NEB SHORTNESS OF BREATH; Start 06/20/16 at 12:30; Stop 06/21/16 at 12:29; Status DC Lidocaine HCl (Xylocaine 2% Inj) 50 ml STK-MED ONCE E-TRACHE Last administered on 06/20/16 12:07; Start 06/20/16 at 12:07; Stop 06/20/16 at 12:48; Status DC Miscellaneous Information ALL NURSING DEPARTME... UNSCH PRN XX SEE LABEL COMMENTS; Start 06/20/16 at 12:42; Stop 06/21/16 at 12:41; Status DC Midazolam HCl (Versed Inj) 2 mg STK-MED ONCE .ROUTE ; Start 06/20/16 at 13:34; Stop 06/20/16 at 13:35; Status DC Lactobacillus Acidophilus (Lactinex) 1 tab TID PO Last administered on 13:19; Start 06/21/16 at 13:00 Potassium Chloride (KCl) 40 meq BID PO Last administered on 06/22/16 21:23; Start 06/21/16 at 21:00; Stop 06/23/16 at 05:34; Status DC Potassium Chloride (KCl) 40 meq ONCE ONCE PO Last administered on 06/21/16 12 :45; Start 06/21/16 at 11:00; Stop 06/21/16 at 11:08; Status DC Miscellaneous Information SPECIFIC LAB TO BE DILLAN... ONCE ONCE XX ; Start at 07:45; Stop 06/24/16 at 07:45; Status DC Prednisone (Deltasone) 20 mg DAILY PO Last administered on 06/23/16 08:42; Start 06/22/16 at 09:00; Stop 06/23/16 at 19:23; Status DC Furosemide (Lasix) 40 mg DAILY PO Last administered on 06/30/16 09:28; Start 06/22/16 at 09:00 Fluconazole (Diflucan) 400 mg DAILY PO Last administered on 06/23/16 08:42; Start 06/22/16 at 09:00; Stop 06/23/16 at 12:29; Status DC Metronidazole (Flagyl) 500 mg Q8HR PO Last administered on 06/30/16 13:19; Start 06/22/16 at 14:00; Stop 07/06/16 at 13:59 Amiodarone HCl (Cordarone) 400 mg Q12HR PO ; Start 06/23/16 at 09:00; Stop 06/23 at 09:00; Status DC Amiodarone HCl 400 mg 400 mg ONCE ONCE PO ; Start 06/23/16 at 03:45; Stop 06/23 at 03:45; Status DC Amiodarone HCl 150 mg/Dextrose 100 ml @ 600 mls/hr ONCE ONCE IV Last administered on 06/23/16 04:10; Start 06/23/16 at 03:45; Stop 06/23/16 at 17:26 ; Status DC Amiodarone HCl/ Dextrose (Cordarone Inj/ D5W ([place]) Inj) 259 ml @ 0 mls/hr CONTINUOUS IV Last administered on 06/23/16 04:30; Start 06/23/16 at 03:45; Stop 06/23/16 at 17:26; Status DC Potassium Chloride (KCl) 20 meq DAILY PO Last administered on 06/30/16 09:29; Start 06/23/16 at 09:00 Potassium Phosphate (K-Phos) 1,000 mg Q12HR PO Last administered on 06/30/16 09:28; Start 06/23/16 at 09:00 Prednisone (Deltasone) 15 mg DAILY PO Last administered on 06/27/16 08:41; Start 06/24/16 at 09:00; Stop 06/27/16 at 12:53; Status DC Propofol (Diprivan 200 Mg/20 ml Inj) 200 mg STK-MED ONCE IV ; Start 06/20/16 at 12:00; Stop 06/24/16 at 13:32; Status DC Diltiazem HCl (Cardizem Cd) 120 mg DAILY PO Last administered on 06/26/16 10: 54; Start 06/26/16 at 09:00; Stop 06/27/16 at 07:28; Status DC Metoprolol Tartrate (Lopressor) 12.5 mg Q12HR PO Last administered on 21:09; Start 06/26/16 at 09:00; Stop 06/27/16 at 07:28; Status DC Miscellaneous (Pill Splitter) 1 ea UNSCH PRN OTHER SEE LABEL COMMENTS; Start at 08:30 Propofol (Diprivan 200 Mg/20 ml Inj) 60 mg STK-MED ONCE IV ; Start 06/26/16 at 12:43; Stop 06/26/16 at 12:56; Status DC Miscellaneous Information ALL NURSING DEPARTME... UNSCH PRN XX SEE LABEL COMMENTS; Start 06/26/16 at 13:45; Stop 06/27/16 at 13:44; Status DC Metoprolol Tartrate (Lopressor) 50 mg Q12HR PO Last administered on 06/30/16 09:26; Start 06/27/16 at 09:00 Heparin Sodium (Porcine) (Heparin Inj) 5,000 units Q12HR SQ Last administered on 06/28/16 09:57; Start 06/27/16 at 11:00 Prednisone (Deltasone) 10 mg DAILY PO Last administered on 06/30/16 09:26; Start 06/28/16 at 09:00 Voriconazole 200 mg 200 mg Q12HR PO Last administered on 06/30/16 09:26; Start 06/27/16 at 15:33 Pharmacy Profile Note ([facility]) 0 ml @ 0 mls/hr UNSCH OTHER ; Start 06/27/16 at 14:00 A/P Problem List: (1) SVT (supraventricular tachycardia) ICD Code: I47.1 Status: Acute (2) Severe sepsis ICD Code: A41.9 Status: Acute (3) COPD with acute exacerbation ICD Code: J44.1 Status: Acute (4) Sepsis ICD Code: A41.9 Status: Acute (5) Cellulitis of right upper extremity ICD Code: L03.113 Status: Acute (6) Abscess of hand, right ICD Code: L02.511 Status: Acute (7) Olecranon bursitis, right elbow ICD Code: M70.21 Status: Acute Assessment and Plan severe sepsis due to cellulitis of the right upper extremity/ right olecranon bursitis resolved - venous doppler of the upper extremities with no DVT-XR of the right elbow with possible olecranon bursitis- -US of the right upper extremity with a complex mass overlying the right third finger- s/p I/D of the right nand mass/fluid collection. -S/p vancomycin culture positive for MRSA- keep the right hand elevated- continue pain control -ID/hand surgery and ortho following; recommended conservative treatment of olecranon bursitis. HAP - Stable status post Zosyn and Levaquin. Repeat chest x-ray stable. Bronchial washings culture with Aspergillus niger, on Variconazole- treatment per ID Pulmonary nodules. Status post bronchoscopy negative cytology. Repeat CT in 2 months -Pulm signed off. SVT - due to sepsis-on beta rosy - cardiology consult appreciated. ischemic cardiomyopathy - s/p stent placement 2001, follow-up angiogram 2 weeks ago no intervention needed per patient; continue aspirin and lisinopril - elevated troponin likely due to tachycardia/ sepsis. on asa -echo with EF 35% cautious use of BB hx of COPD -cardiology reconsulted 2/2 VT felt to be secondary to NAN . Info from Dr Vora shows ECHO May 2016 with normal EF and cath from 2014 (Dec per pt) with stable CAD. Elevated trop likely from sepsis acute on chronic systolic CHF - continue Lasix and monitor electrolytes. -improving. on oral medication. COPD exacerbation -improving dyspnea on exertion continue steroids and neb treatment- will monitor. of note the patient is on home oxygen. Diabetes with hypoglycemic episode -with no further hypoglycemia. Hyperglycemic secondary to steroids and noncompliance(refusing fingersticks and Levemir because he does not want to be poked). - Adjust Levemir accordingly.- accu-check with SSI. Patient again counseled regarding compliance anemia of chronic disease - s/p PRBC transfusion with improved H/H- will monitor -stool occult blood positive 1. Continue PPI and consulted GI for endoscopy which showed gastritis and esophageal ring status post dilatations and biopsy. ok with GI to restart aspirin. Hypertension. - Improving with Lasix and beta rosy status post Cardizem. Dry eyes. -Eye lubricants. -C. difficile colitis. - Improving no diarrhea Continue Lactinex and Flagyl until July 06. Monitor electrolytes DVT prophylaxis ; SCD's and subcutaneous heparin Dispo: difficulty with placement. recommended for SNF and due to hx hard to find placement. Asia Gonsales MD Jun 30, 2016 16:38
--- NOTE | 2016-06-30 17:48 | HHI.PR ---
Subjective Remarks No complaints. On O2 at 2 L.Mild cough. No fever. Objective Vital Signs Date Time Temp Pulse Resp B/P Pulse Ox O2 Delivery O2 Flow Rate FiO2 06/30/16 16:00 97.9 84 20 110/70 93 06/30/16 12:23 92 06/30/16 12:00 97.0 108 21 112/64 96 06/30/16 08:00 97.0 101 20 130/65 96 06/30/16 07:29 97 21 06/30/16 04:16 96.8 86 18 118/70 97 06/30/16 00:34 96.8 80 18 120/68 98 06/29/16 20:00 96.6 82 16 117/71 98 06/29/16 18:00 86 I/O 06/29/16 06/29/16 06/29/16 06/30/16 06/30/16 06/30/16 07:00 15:00 23:00 07:00 15:00 23:00 Intake Total 240 ml 360 ml 360 ml 360 ml Output Total 150 ml 350 ml 525 ml Balance 240 ml 210 ml 10 ml -165 ml Intake Oral 240 ml 360 ml 360 ml 360 ml Output Urine Total 150 ml 350 ml 525 ml # Voids 1 2 # Bowel Movements 2 1 2 Result Diagram: 06/26/16 0856 Objective Remarks This is an elderly averagely built white male who is pale and alert. EXTREMITIES: There is no clubbing. There is no leg edema. HEENT: Head normocephalic. Pupils are reactive and equal. Tongue was moist. Throat was clear. Ears, no inflammation. NECK: Supple. No venous distension. No thyromegaly or lymphadenopathy. CHEST: Decreased breath sounds at the bases with few crackles. HEART: The heart sounds are regular S1-S2 with no murmur. No S3. ABDOMEN: The abdomen is soft, nontender. No organomegaly. The bowel sounds are active. EXTREMITIES: Edema 1+ with diminished pulses and joint deformities of the extremities. SKIN: Cool, dry. NEUROLOGIC: He is alert and oriented. Moves all extremities.There are no deficits. Assessment and Plan Assessment and Plan IMPRESSION 1. Cellulitis of the right upper extremity resolving. 2. COPD with emphysema and chronic bronchitis 3. Coronary artery disease with stenting 4. Diabetes mellitus 5. History of hypertension. 6. Left Lung nodules Plan : 1. PT evaluation and ambulate. 2. Cont Nebs qid , duoneb. 3. O2 at 2L. 4. Continue lasix 40 mg Po daily. 5. Prednisone 5 mg daily 6. Voriconazole PO per Dr Velez 7. CT chest in 2 mths. 8. CMP, CBC. Liv Pinedo MD Jun 30, 2016 17:48
[2016-06-30] MEDS: ZOLPIDEM TARTRATE 5 MG TAB PO PRN (22:31)
[2016-07-01] VITALS (8 sets, daily range): BP systolic 124–151; BP diastolic 58–72; PULSE 76–92; RESP 18–20; TEMP 97.1–98.5; O2SAT 92–96
[2016-07-01] MEDS: ALPRAZolam 0.25 MG TAB PO PRN (01:53)
[2016-07-01] MEDS: HYPROMELLOSE 0.3 % OPTH GEL 10 GM (0.34 FL OZ) TUBE EACH EYE SCH ×4 (04:00→21:35)
[2016-07-01] MEDS: metroNIDAZOLE 500 MG TAB PO SCH ×3 (06:34→21:34)
[2016-07-01] MEDS: INSULIN ASPART SUPPLEMENTAL SCALE SQ SCH ×4 (06:38→21:00)
[2016-07-01 07:57] LABS: HEMATOCRIT 28.4 % (39.0-51.0); MEAN CELL VOLUME 86.3 FL (80.0-100.0); MEAN CORPUSCULAR HEMOGLOBIN 28.1 PG (27.0-34.0); MEAN CORPUSCULAR HGB CONC 32.6 % (32.0-36.0); PLATELET COUNT 152 TH/MM3 (150-450); RED CELL DISTRIBUTION WIDTH 24.7 % (11.6-17.2); WHITE BLOOD COUNT 6.8 TH/MM3 (4.0-11.0)
[2016-07-01 08:00] LABS: HEMO FLAGS AUTO DIFF
[2016-07-01 08:28] LABS: BICARBONATE 31.1 MEQ/L (21.0-32.0); CALCIUM-PROTEIN CORRECTED 8.7 MG/DL (8.5-10.1); POTASSIUM 4.2 MEQ/L (3.5-5.1); TOTAL BILIRUBIN ADULT 0.3 MG/DL (0.2-1.0)
[2016-07-01 08:56] LABS: CORRECTED NUCLEATED RBC 1 /100 WBC (0-0); MYELOCYTES 1 % (0-0); POLYS (SEG NEUTROPHILS) 73 % (16-70); WBC DIFF SAMPLE 100
[2016-07-01 08:57] LABS: KERATOCYTES OCC (NORMAL); PLATELET ESTIMATE SMEAR NORMAL (NORMAL); PLATELET MORPHOLOGY NORMAL (NORMAL); SCAN/DIFF FINAL DIFF MANUAL; TARGET CELLS 1+ (NORMAL)
[2016-07-01] MEDS: INSULIN DETEMIR 100 UNITS/ML VIAL SQ SCH ×2 (09:00→21:00)
[2016-07-01] MEDS: HEPARIN SODIUM - SQ 10,000 UNITS/ML VIAL SQ SCH ×3 (09:00→21:34)
[2016-07-01] MEDS: FUROSEMIDE 40 MG TAB PO SCH (09:15)
[2016-07-01] MEDS: POTASSIUM PHOSPHATE MONOBASIC 500 MG TAB PO SCH ×2 (09:16→21:33)
[2016-07-01] MEDS: BUDESONIDE-FORMOTEROL 160/4.5 MCG INHALER INH SCH ×2 (09:16→21:37)
[2016-07-01] MEDS: ASPIRIN 81 MG CHEW TAB CHEW SCH (09:16)
[2016-07-01] MEDS: POTASSIUM CHLORIDE 20 MEQ CONTROLLED RELEASE TAB PO SCH (09:16)
[2016-07-01] MEDS: PANTOPRAZOLE SOD 40 MG DELAYED RELEASE TAB PO SCH (09:16)
[2016-07-01] MEDS: LACTOBACILLUS ACIDOPHILUS TAB PO SCH ×3 (09:16→17:04)
[2016-07-01] MEDS: SODIUM CHLORIDE 0.9% FLUSH 5 ML FLUSH IVF PRN (09:17)
[2016-07-01] MEDS: predniSONE 10 MG TAB PO SCH (09:17)
[2016-07-01] MEDS: VORICONAZOLE 200 MG TAB PO SCH ×2 (09:17→21:34)
[2016-07-01] MEDS: LISINOPRIL 20 MG TAB PO SCH (09:17)
[2016-07-01] MEDS: METOPROLOL TARTRATE 50 MG TAB PO SCH ×2 (09:17→21:33)
--- NOTE | 2016-07-01 14:18 | HHI.PR ---
Subjective Remarks f/u for cellulitis and PNA. patient has no complaints. denied any SOB, cough, fever or chills. He stated he is working with PT and feels like he is getting stronger. Objective Vitals Vital Signs Date Time Temp Pulse Resp B/P Pulse Ox O2 Delivery O2 Flow Rate FiO2 07/01/16 12:00 97.9 92 20 128/58 95 07/01/16 10:14 76 07/01/16 08:22 94 Nasal Cannula 3.00 07/01/16 08:00 97.1 90 18 148/68 94 07/01/16 04:00 97.1 87 18 151/68 92 07/01/16 00:47 97.2 88 18 150/72 93 06/30/16 22:30 96 Nasal Cannula 3.00 06/30/16 20:00 97.0 92 18 153/70 92 06/30/16 19:47 97 Nasal Cannula 3.00 06/30/16 16:00 97.9 84 20 110/70 93 I/O 06/30/16 06/30/16 06/30/16 07/01/16 07/01/16 07/01/16 07:00 15:00 23:00 07:00 15:00 23:00 Intake Total 360 ml 360 ml 480 ml Output Total 350 ml 525 ml Balance 10 ml -165 ml 480 ml Intake Oral 360 ml 360 ml 480 ml Output Urine Total 350 ml 525 ml # Voids 1 # Bowel Movements 2 Result Diagram: 07/01/16 0715 07/01/16 0715 Objective Remarks Gen NAD CV RRR. no r/m/g Abd: soft NDNT Ext elbow no erythema, or swelling noted. full ROM. no pain. Procedures Incision and drainage of right hand abscess Bronchoscopy EGD with dilatation Medications and IVs Current Medications IV Flush (NS Flush) 2 ml UNSCH PRN IVF FLUSH AFTER USING IV ACCESS Last administered on 07/01/16 09:17; Start 06/05/16 at 12:30 Adenosine (Adenocard Inj) 6 mg ONCE ONCE IV PUSH Last administered on 13:36; Start 06/05/16 at 12:30; Stop 06/05/16 at 12:31; Status DC Adenosine (Adenocard Inj) 12 mg ONCE ONCE IV PUSH Last administered on 13:37; Start 06/05/16 at 12:30; Stop 06/05/16 at 12:31; Status DC Adenosine (Adenocard Inj) 18 mg STK-MED ONCE .ROUTE ; Start 06/05/16 at 12:29; Stop 06/05/16 at 12:30; Status DC Adenosine (Adenocard Inj) 6 mg STK-MED ONCE .ROUTE ; Start 06/05/16 at 12:31; Stop 06/05/16 at 12:32; Status DC Adenosine (Adenocard Inj) 6 mg ONCE ONCE IV PUSH ; Start 06/05/16 at 12:45; Stop 06/05/16 at 12:46; Status DC Adenosine (Adenocard Inj) 12 mg ONCE ONCE IV PUSH ; Start 06/05/16 at 12:45; Stop 06/05/16 at 12:46; Status DC Diltiazem HCl (Cardizem Inj) 25 mg STK-MED ONCE .ROUTE ; Start 06/05/16 at 12:41 ; Stop 06/05/16 at 12:42; Status DC Diltiazem HCl (Cardizem Inj) 25 mg ONCE ONCE IV Last administered on 06/05/16 13:38; Start 06/05/16 at 13:15; Stop 06/05/16 at 13:16; Status DC Diltiazem HCl 25 mg 25 mg STK-MED ONCE .ROUTE Last administered on 06/05/16 13: 37; Start 06/05/16 at 13:02; Stop 06/05/16 at 13:03; Status DC Vancomycin HCl 1200 mg/Sodium Chloride 262 ml @ 250 mls/hr ONCE ONCE IV Last administered on 06/05/16 14:45; Start 06/05/16 at 13:15; Stop 06/05/16 at 14:17; Status DC Cefepime HCl 2000 mg/Sodium Chloride 100 ml @ 200 mls/hr ONCE ONCE IV Last administered on 06/05/16 16:13; Start 06/05/16 at 13:15; Stop 06/05/16 at 13:44; Status DC Diltiazem HCl/ Sodium Chloride (Cardizem Inj/NS Inj) 125 ml @ 0 mls/hr TITRATE IV Last administered on 06/11/16 21:47; Start 06/05/16 at 13:30; Stop 06/12/16 at 08:27; Status DC Diltiazem HCl (Cardizem Inj) 20 mg ONCE ONCE IV Last administered on 06/05/16 14:35; Start 06/05/16 at 14:15; Stop 06/05/16 at 14:16; Status DC Diltiazem HCl 20 mg 20 mg ONCE ONCE IV Last administered on 06/05/16 16:16; Start 06/05/16 at 14:15; Stop 06/05/16 at 14:16; Status DC Pharmacy Profile Note 0 ml @ 0 mls/hr UNSCH OTHER ; Start 06/05/16 at 15:45; Stop 06/21/16 at 14:20; Status DC Cefepime HCl/ Sodium Chloride (Maxipime Inj/NS Inj) 100 ml @ 200 mls/hr Q12H IV Last administered on 06/06/16 14:58; Start 06/06/16 at 02:00; Stop 06/06/16 at 19:04; Status DC Acetaminophen (Tylenol) 650 mg Q4H PRN PO FEVER/ PAIN 1-5 Last administered on 06/21/16 01:23; Start 06/05/16 at 15:45 Acetaminophen/ Hydrocodone Bitart ([place] 5-325 Mg) 1 tab Q4H PRN PO PAIN 6-10 Last administered on 06/30/16 22:32; Start 06/05/16 at 15:45 Hydromorphone HCl (Dilaudid Pf Inj) 0.2 mg Q4H PRN IV PUSH BREAKTHROUGH PAIN Last administered on 06/05/16 16:47; Start 06/05/16 at 15:45 Ondansetron HCl (Zofran Inj) 4 mg Q8HR PRN IV PUSH NAUSEA Last administered on 06/17/16 13:26; Start 06/05/16 at 15:45 Albuterol Sulfate (Proair Hfa Inh) 2 puff QID INH Last administered on 18:00; Start 06/05/16 at 18:00; Stop 06/16/16 at 20:36; Status DC Aspirin (Aspirin Chew) 81 mg DAILY CHEW Last administered on 07/01/16 09:16; Start 06/06/16 at 09:00 Budesonide/ Formoterol Fumarate (Symbicort 160-4.5 Inh) 2 puff BID INH Last administered on 07/01/16 09:16; Start 06/05/16 at 21:00 Lisinopril (Prinivil) 20 mg DAILY PO Last administered on 07/01/16 09:17; Start 06/06/16 at 09:00 Tiotropium [place] (Spiriva Inh) 18 mcg DAILY INH Last administered on 09:01; Start 06/06/16 at 09:00; Stop 06/16/16 at 20:30; Status DC Diltiazem HCl (Cardizem Cd) 180 mg DAILY PO Last administered on 06/18/16 09: 50; Start 06/06/16 at 09:00; Stop 06/19/16 at 05:49; Status DC Insulin Detemir (Levemir Inj) 8 units HS SQ Last administered on 06/09/16 20:35 ; Start 06/05/16 at 21:00; Stop 06/13/16 at 16:27; Status DC Insulin Detemir (Levemir Inj) 12 units DAILY SQ Last administered on 06/09/16 09:00; Start 06/06/16 at 09:00; Stop 06/13/16 at 16:27; Status DC Naphazoline HCl (Clear Eyes Redness Relief 0.012% Opth Soln) 1 drop QID PRN EACH EYE EYE ITCH; Start 06/05/16 at 16:30 Albuterol Sulfate (Albuterol Neb) 0.63 mg Q6HR NEB PRN NEB SHORTNESS OF BREATH ; Start 06/05/16 at 15:45; Stop 06/09/16 at 09:32; Status DC Dextrose (D50w (Vial) Inj) 25 ml UNSCH PRN IV PUSH HYPOGLYCEMIA-SEE COMMENTS Last administered on 06/10/16 06:34; Start 06/05/16 at 15:45 Glucagon (Glucagon Inj) 1 mg UNSCH PRN OTHER HYPOGLYCEMIA-SEE COMMENTS; Start 06/05/16 at 15:45 Insulin Aspart 1 1 ACHS SLIDING SCALE SQ Last administered on 06/12/16 20:36; Start 06/05/16 at 16:00; Stop 06/13/16 at 05:08; Status DC Vancomycin HCl/ Sodium Chloride (Vancomycin Inj/ NS 500 ml Inj) 515 ml @ 250 mls/hr Q18H IV Last administered on 06/09/16 06:09; Start 06/06/16 at 06:00; Stop 06/09/16 at 10:22; Status DC Miscellaneous Information SPECIFIC LAB TO BE DRAWN:VANCOMYCIN TROUGH DATE TO... ONCE ONCE XX ; Start 06/08/16 at 11:45; Stop 06/08/16 at 11:46; Status DC Sodium Chloride (NS 500 ml Inj) 500 ml @ 500 mls/hr BOLUS ONCE IV Last administered on 06/05/16 20:36; Start 06/05/16 at 20:15; Stop 06/05/16 at 21:14; Status DC Albuterol/ Ipratropium (Duoneb Neb) 1 ampule Q4HR NEB PRN NEB SOB/WHEEZING; Start 06/05/16 at 20:30; Stop 06/09/16 at 09:30; Status DC Alprazolam (Xanax) 0.25 mg Q12HR PRN PO ANXIETY Last administered on 07/01/16 01:53; Start 06/06/16 at 13:00 Zolpidem Tartrate (Ambien) 5 mg HS PRN PO SLEEP Last administered on 06/30/16 22:31; Start 06/06/16 at 21:00 Furosemide (Lasix Inj) 20 mg ONCE ONCE IV PUSH Last administered on 06/08/16 08:45; Start 06/08/16 at 08:45; Stop 06/08/16 at 08:52; Status DC Miscellaneous Information SPECIFIC LAB TO BE DRAWN:VANCOMY... ONCE ONCE XX Last administered on 06/09/16 05:45; Start 06/09/16 at 05:45; Stop 06/09/16 at 05: 46; Status DC Furosemide (Lasix Inj) 40 mg STK-MED ONCE .ROUTE ; Start 06/08/16 at 17:02; Stop 06/08/16 at 17:03; Status DC Albuterol/ Ipratropium (Duoneb Neb) 1 ampule Q4HR NEB NEB Last administered on 06/13/16 11:11; Start 06/09/16 at 12:00; Stop 06/13/16 at 12:11; Status DC Albuterol Sulfate (Albuterol Neb) 0.63 mg Q2HR NEB PRN NEB SHORTNESS OF BREATH Last administered on 06/14/16 19:52; Start 06/09/16 at 10:00 Potassium Chloride 20 meq 20 meq ONCE ONCE PO Last administered on 06/09/16 09 :30; Start 06/09/16 at 09:30; Stop 06/09/16 at 09:45; Status DC Vancomycin HCl/ Sodium Chloride (Vancomycin Inj/ NS 250 ml Inj) 250 ml @ 250 mls/hr Q12H IV Last administered on 06/10/16 06:45; Start 06/09/16 at 18:00; Stop 06/10/16 at 21:19; Status DC Miscellaneous Information SPECIFIC LAB TO BE DILLAN... ONCE ONCE XX ; Start at 17:45; Stop 06/10/16 at 17:46; Status DC Furosemide (Lasix Inj) 20 mg DAILY IV PUSH Last administered on 06/20/16 08:09 ; Start 06/09/16 at 12:30; Stop 06/20/16 at 21:00; Status DC Potassium Chloride (KCl) 20 meq DAILY PO Last administered on 06/20/16 08:09; Start 06/09/16 at 12:30; Stop 06/20/16 at 11:10; Status DC Guaifenesin/ Codeine Phosphate (Robitussin Ac 200-20 Mg/10 ml Liq) 10 ml Q6H PRN PO COUGH Last administered on 06/26/16 21:09; Start 06/10/16 at 10:00 Lidocaine HCl (Xylocaine 2% Inj) 100 mg STK-MED ONCE .ROUTE ; Start 06/10/16 at 16:21; Stop 06/10/16 at 16:22; Status DC Lidocaine HCl 50 ml 50 ml STK-MED ONCE .ROUTE ; Start 06/10/16 at 16:34; Stop 06/10/16 at 16:35; Status DC Vancomycin HCl/ Sodium Chloride (Vancomycin Inj/ NS 250 ml Inj) 250 ml @ 250 mls/hr Q24H IV Last administered on 06/11/16 08:53; Start 06/11/16 at 08:00; Stop 06/11/16 at 09:09; Status DC Miscellaneous Information SPECIFIC LAB TO BE DRAWN:VA... ONCE ONCE XX ; Start 06/11/16 at 07:45; Stop 06/11/16 at 07:46; Status DC Vancomycin HCl/ Sodium Chloride (Vancomycin Inj/ NS 500 ml Inj) 515 ml @ 250 mls/hr Q18H IV Last administered on 06/13/16 08:26; Start 06/11/16 at 20:00; Stop 06/13/16 at 10:21; Status DC Miscellaneous Information SPECIFIC LAB TO BE DRAWN:VANCOMYCIN TROUGH DATE TO... ONCE ONCE XX Last administered on 06/13/16 07:45; Start 06/13/16 at 07:45; Stop 06/13/16 at 07:46; Status DC Methylprednisolone Sodium Succinate (SoluMEDROL INJ) 40 mg Q6H IV PUSH Last administered on 06/12/16 04:32; Start 06/11/16 at 11:00; Stop 06/12/16 at 08:28; Status DC Docusate Sodium 100 mg 100 mg BID PRN PO CONSTIPATION Last administered on 06/13 12:38; Start 06/11/16 at 10:30 Levofloxacin/ Dextrose (Levaquin 500 Mg Premix Inj) 100 ml @ 100 mls/hr Q24H IV Last administered on 06/12/16 18:13; Start 06/11/16 at 18:00; Stop 06/13/16 at 16:27; Status DC Methylprednisolone Sodium Succinate (SoluMEDROL INJ) 40 mg Q8HR IV PUSH Last administered on 06/13/16 12:38; Start 06/12/16 at 14:00; Stop 06/13/16 at 16:27 ; Status DC Insulin Aspart 1 1 ACHS SLIDING SCALE SQ Last administered on 06/27/16 21:00 ; Start 06/13/16 at 07:00 Vancomycin HCl/ Sodium Chloride (Vancomycin Inj/ NS 250 ml Inj) 262.5 ml @ 250 mls/hr Q24H IV Last administered on 06/21/16 08:43; Start 06/14/16 at 08:00; Stop 06/21/16 at 14:21; Status DC Miscellaneous Information SPECIFIC LAB TO BE DILLAN... ONCE ONCE XX ; Start at 07:45; Stop 06/16/16 at 07:46; Status DC Insulin Detemir (Levemir Inj) 10 units HS SQ ; Start 06/13/16 at 21:00; Stop 03/20 at 07:26; Status DC Insulin Detemir (Levemir Inj) 15 units DAILY SQ ; Start 06/14/16 at 09:00; Stop 06/14/16 at 09:00; Status DC Methylprednisolone Sodium Succinate (SoluMEDROL INJ) 40 mg Q12HR IV PUSH Last administered on 06/15/16 08:17; Start 06/13/16 at 21:00; Stop 06/15/16 at 13:31 ; Status DC Insulin Detemir (Levemir Inj) 8 units HS SQ Last administered on 06/27/16 22: 30; Start 06/14/16 at 21:00 Insulin Detemir (Levemir Inj) 12 units DAILY SQ Last administered on 06/18/16 09:00; Start 06/14/16 at 09:00; Stop 06/18/16 at 09:27; Status DC Pantoprazole Sodium (Protonix) 40 mg DAILY PO Last administered on 07/01/16 09 :16; Start 06/14/16 at 09:00 Prednisone (Deltasone) 40 mg DAILY PO Last administered on 06/17/16 08:39; Start 06/15/16 at 13:30; Stop 06/17/16 at 15:31; Status DC Miscellaneous Information SPECIFIC LAB TO BE ... ONCE ONCE XX ; Start at 07:45; Stop 06/17/16 at 07:46; Status DC Piperacillin Sod/ Tazobactam Sod (Zosyn 4.5 Gm Premix) 100 ml @ 200 mls/hr Q8H IV Last administered on 06/21/16 12:46; Start 06/16/16 at 21:00; Stop at 14:21; Status DC Levofloxacin (Levaquin) 500 mg Q24H PO Last administered on 06/23/16 21:28; Start 06/16/16 at 20:00; Stop 06/24/16 at 19:59; Status DC Albuterol/ Ipratropium (Duoneb Neb) 1 ampule QID NEB NEB Last administered on 06/26/16 15:42; Start 06/17/16 at 08:00; Stop 06/28/16 at 10:42; Status DC Methylprednisolone Sodium Succinate (SoluMEDROL INJ) 40 mg Q8H IV Last administered on 06/19/16 05:33; Start 06/17/16 at 13:00; Stop 06/19/16 at 08:37 ; Status DC Miscellaneous Information SPECIFIC LAB TO BE DRAWN:VANCOMYCIN TROUGH DATE TO... ONCE ONCE XX ; Start 06/18/16 at 07:45; Stop 06/18/16 at 07:46; Status DC Insulin Detemir (Levemir Inj) 18 units DAILY SQ Last administered on 06/29/16 08:38; Start 06/19/16 at 09:00 Diltiazem HCl (Cardizem Cd) 240 mg DAILY PO Last administered on 06/25/16 09: 13; Start 06/19/16 at 09:00; Stop 06/26/16 at 08:09; Status DC Methylprednisolone Sodium Succinate (SoluMEDROL INJ) 40 mg Q12HR IV Last administered on 06/21/16 08:45; Start 06/19/16 at 21:00; Stop 06/21/16 at 18:05 ; Status DC Hypromellose 2 drop 2 drop Q6H EACH EYE Last administered on 07/01/16 09:16; Start 06/19/16 at 10:00 Dextrose/Sodium Chloride (D5W-1/2 NS 1000 ml Inj) 1,000 ml @ 0 mls/hr Q0M IV ; Start 06/19/16 at 13:17; Stop 06/21/16 at 10:46; Status DC Albuterol Sulfate (Albuterol Concentrated Neb) 2.5 mg INSTRUMENT MAKER NEB ; Start 06/19 at 13:30; Stop 06/23/16 at 13:29; Status DC Furosemide (Lasix Inj) 20 mg BID@09,18 IV PUSH Last administered on 06/21/16 16:41; Start 06/20/16 at 18:00; Stop 06/21/16 at 18:06; Status DC Potassium Chloride (KCl) 20 meq BID PO Last administered on 06/21/16 08:43; Start 06/20/16 at 21:00; Stop 06/21/16 at 10:49; Status DC Albuterol Sulfate (Albuterol Neb) 2.5 mg STK-MED ONCE .ROUTE ; Start 06/20/16 at 11:33; Stop 06/20/16 at 11:34; Status DC Ketamine HCl (Ketalar Inj) 500 mg STK-MED ONCE .ROUTE ; Start 06/20/16 at 11:51 ; Stop 06/20/16 at 11:52; Status DC Albuterol Sulfate (Albuterol Neb) 2.5 mg UNSCH X1 PRN NEB SHORTNESS OF BREATH; Start 06/20/16 at 12:30; Stop 06/21/16 at 12:29; Status DC Lidocaine HCl (Xylocaine 2% Inj) 50 ml STK-MED ONCE E-TRACHE Last administered on 06/20/16 12:07; Start 06/20/16 at 12:07; Stop 06/20/16 at 12:48; Status DC Miscellaneous Information ALL NURSING DEPARTME... UNSCH PRN XX SEE LABEL COMMENTS; Start 06/20/16 at 12:42; Stop 06/21/16 at 12:41; Status DC Midazolam HCl (Versed Inj) 2 mg STK-MED ONCE .ROUTE ; Start 06/20/16 at 13:34; Stop 06/20/16 at 13:35; Status DC Lactobacillus Acidophilus (Lactinex) 1 tab TID PO Last administered on 13:59; Start 06/21/16 at 13:00 Potassium Chloride (KCl) 40 meq BID PO Last administered on 06/22/16 21:23; Start 06/21/16 at 21:00; Stop 06/23/16 at 05:34; Status DC Potassium Chloride (KCl) 40 meq ONCE ONCE PO Last administered on 06/21/16 12 :45; Start 06/21/16 at 11:00; Stop 06/21/16 at 11:08; Status DC Miscellaneous Information SPECIFIC LAB TO BE DILLAN... ONCE ONCE XX ; Start at 07:45; Stop 06/24/16 at 07:45; Status DC Prednisone (Deltasone) 20 mg DAILY PO Last administered on 06/23/16 08:42; Start 06/22/16 at 09:00; Stop 06/23/16 at 19:23; Status DC Furosemide (Lasix) 40 mg DAILY PO Last administered on 07/01/16 09:15; Start 06/22/16 at 09:00 Fluconazole (Diflucan) 400 mg DAILY PO Last administered on 06/23/16 08:42; Start 06/22/16 at 09:00; Stop 06/23/16 at 12:29; Status DC Metronidazole (Flagyl) 500 mg Q8HR PO Last administered on 07/01/16 13:59; Start 06/22/16 at 14:00; Stop 07/06/16 at 13:59 Amiodarone HCl (Cordarone) 400 mg Q12HR PO ; Start 06/23/16 at 09:00; Stop 06/23 at 09:00; Status DC Amiodarone HCl 400 mg 400 mg ONCE ONCE PO ; Start 06/23/16 at 03:45; Stop 06/23 at 03:45; Status DC Amiodarone HCl 150 mg/Dextrose 100 ml @ 600 mls/hr ONCE ONCE IV Last administered on 06/23/16 04:10; Start 06/23/16 at 03:45; Stop 06/23/16 at 17:26 ; Status DC Amiodarone HCl/ Dextrose (Cordarone Inj/ D5W ([place]) Inj) 259 ml @ 0 mls/hr CONTINUOUS IV Last administered on 06/23/16 04:30; Start 06/23/16 at 03:45; Stop 06/23/16 at 17:26; Status DC Potassium Chloride (KCl) 20 meq DAILY PO Last administered on 07/01/16 09:16; Start 06/23/16 at 09:00 Potassium Phosphate (K-Phos) 1,000 mg Q12HR PO Last administered on 07/01/16 09:16; Start 06/23/16 at 09:00 Prednisone (Deltasone) 15 mg DAILY PO Last administered on 06/27/16 08:41; Start 06/24/16 at 09:00; Stop 06/27/16 at 12:53; Status DC Propofol (Diprivan 200 Mg/20 ml Inj) 200 mg STK-MED ONCE IV ; Start 06/20/16 at 12:00; Stop 06/24/16 at 13:32; Status DC Diltiazem HCl (Cardizem Cd) 120 mg DAILY PO Last administered on 06/26/16 10: 54; Start 06/26/16 at 09:00; Stop 06/27/16 at 07:28; Status DC Metoprolol Tartrate (Lopressor) 12.5 mg Q12HR PO Last administered on 21:09; Start 06/26/16 at 09:00; Stop 06/27/16 at 07:28; Status DC Miscellaneous (Pill Splitter) 1 ea UNSCH PRN OTHER SEE LABEL COMMENTS; Start at 08:30 Propofol (Diprivan 200 Mg/20 ml Inj) 60 mg STK-MED ONCE IV ; Start 06/26/16 at 12:43; Stop 06/26/16 at 12:56; Status DC Miscellaneous Information ALL NURSING DEPARTME... UNSCH PRN XX SEE LABEL COMMENTS; Start 06/26/16 at 13:45; Stop 06/27/16 at 13:44; Status DC Metoprolol Tartrate (Lopressor) 50 mg Q12HR PO Last administered on 07/01/16 09:17; Start 06/27/16 at 09:00 Heparin Sodium (Porcine) (Heparin Inj) 5,000 units Q12HR SQ Last administered on 06/28/16 09:57; Start 06/27/16 at 11:00 Prednisone (Deltasone) 10 mg DAILY PO Last administered on 07/01/16 09:17; Start 06/28/16 at 09:00 Voriconazole 200 mg 200 mg Q12HR PO Last administered on 07/01/16 09:17; Start 06/27/16 at 15:33 Pharmacy Profile Note ([facility]) 0 ml @ 0 mls/hr UNSCH OTHER ; Start 06/27/16 at 14:00 A/P Problem List: (1) SVT (supraventricular tachycardia) ICD Code: I47.1 Status: Acute (2) Severe sepsis ICD Code: A41.9 Status: Acute (3) COPD with acute exacerbation ICD Code: J44.1 Status: Acute (4) Sepsis ICD Code: A41.9 Status: Acute (5) Cellulitis of right upper extremity ICD Code: L03.113 Status: Acute (6) Abscess of hand, right ICD Code: L02.511 Status: Acute (7) Olecranon bursitis, right elbow ICD Code: M70.21 Status: Acute Assessment and Plan severe sepsis due to cellulitis of the right upper extremity/ right olecranon bursitis -resolved - venous doppler of the upper extremities with no DVT-XR of the right elbow with possible olecranon bursitis- -US of the right upper extremity with a complex mass overlying the right third finger- s/p I/D of the right nand mass/fluid collection. -S/p vancomycin culture positive for MRSA- keep the right hand elevated- continue pain control -ID/hand surgery and ortho following; recommended conservative treatment of olecranon bursitis. HAP - Stable status post Zosyn and Levaquin. Repeat chest x-ray stable. Bronchial washings culture with Aspergillus niger, on Variconazole- treatment per ID Pulmonary nodules. Status post bronchoscopy negative cytology. Repeat CT in 2 months -Pulm signed off. SVT - due to sepsis-on beta rosy - cardiology consult appreciated. ischemic cardiomyopathy - s/p stent placement 2001, follow-up angiogram 2 weeks ago no intervention needed per patient; continue aspirin and lisinopril - elevated troponin likely due to tachycardia/ sepsis. on asa -echo with EF 35% cautious use of BB hx of COPD -cardiology reconsulted 2/2 VT felt to be secondary to NAN . Info from Dr Vora shows ECHO May 2016 with normal EF and cath from 2014 (Dec per pt) with stable CAD. Elevated trop likely from sepsis acute on chronic systolic CHF - continue Lasix and monitor electrolytes. -improving. on oral medication. COPD exacerbation -improving dyspnea on exertion continue steroids and neb treatment- will monitor. of note the patient is on home oxygen. Diabetes with hypoglycemic episode -with no further hypoglycemia. Hyperglycemic secondary to steroids and noncompliance(refusing fingersticks and Levemir because he does not want to be poked). - Adjust Levemir accordingly.- accu-check with SSI. Patient again counseled regarding compliance anemia of chronic disease - s/p PRBC transfusion with improved H/H- will monitor -stool occult blood positive 1. Continue PPI and consulted GI for endoscopy which showed gastritis and esophageal ring status post dilatations and biopsy. ok with GI to restart aspirin. Hypertension. - Improving with Lasix and beta rosy status post Cardizem. Dry eyes. -Eye lubricants. -C. difficile colitis. - Improving no diarrhea Continue Lactinex and Flagyl until July 06. Monitor electrolytes DVT prophylaxis ; SCD's and subcutaneous heparin Dispo: difficulty with placement. recommended for SNF and due to hx hard to find placement. Asia Gonsales MD Jul 01, 2016 14:18
[2016-07-01] MEDS: ACETAMINOPHEN/HYDROcodone 325 MG/5 MG TAB PO PRN ×2 (17:14→23:21)
--- NOTE | 2016-07-01 18:11 | HHI.PR ---
Subjective Remarks No new complaints. On O2 at 2 L.Mild cough. Walks in room. Still SOB. Objective Vital Signs Date Time Temp Pulse Resp B/P Pulse Ox O2 Delivery O2 Flow Rate FiO2 07/01/16 16:00 97.1 90 20 124/58 96 07/01/16 12:00 97.9 92 20 128/58 95 07/01/16 10:14 76 07/01/16 08:22 94 Nasal Cannula 3.00 07/01/16 08:00 97.1 90 18 148/68 94 07/01/16 04:00 97.1 87 18 151/68 92 07/01/16 00:47 97.2 88 18 150/72 93 06/30/16 22:30 96 Nasal Cannula 3.00 06/30/16 20:00 97.0 92 18 153/70 92 06/30/16 19:47 97 Nasal Cannula 3.00 I/O 06/30/16 06/30/16 06/30/16 07/01/16 07/01/16 07/01/16 07:00 15:00 23:00 07:00 15:00 23:00 Intake Total 360 ml 360 ml 480 ml 480 ml Output Total 350 ml 525 ml Balance 10 ml -165 ml 480 ml 480 ml Intake Oral 360 ml 360 ml 480 ml 480 ml Output Urine Total 350 ml 525 ml # Voids 1 2 # Bowel Movements 2 Result Diagram: 07/01/16 0715 07/01/16 0715 Objective Remarks This is an elderly averagely built white male who is pale and alert. EXTREMITIES: There is no clubbing. There is no leg edema. HEENT: Head normocephalic. Pupils are reactive and equal. Tongue was moist. Throat was clear. Ears, no inflammation. NECK: Supple. No venous distension. No thyromegaly or lymphadenopathy. CHEST: Decreased breath sounds at the bases with occ Wheeze . HEART: The heart sounds are regular S1-S2 with no murmur. No S3. ABDOMEN: The abdomen is soft, nontender. No organomegaly. The bowel sounds are active. EXTREMITIES: Edema 1+ with diminished pulses and joint deformities of the extremities. SKIN: warm, dry. NEUROLOGIC: He is alert and oriented. Moves all extremities.There are no gross deficits. Assessment and Plan Assessment and Plan IMPRESSION 1. Cellulitis of the right upper extremity resolving. 2. COPD with emphysema and chronic bronchitis 3. Coronary artery disease with stenting 4. Diabetes mellitus 5. History of hypertension. 6. Left Lung nodules Plan : 1. PT evaluation and ambulate. 2. Cont Nebs bid, duoneb. 3. O2 at 3 L. 4. Continue lasix 40 mg Po daily. 5. Prednisone 5 mg daily 6. Voriconazole PO per Dr Velez 7. CT chest in 2 mths. 8. Chest x ray in am Liv Pinedo MD Jul 01, 2016 18:11
[2016-07-01] MEDS: ZOLPIDEM TARTRATE 5 MG TAB PO PRN (22:04)
[2016-07-02] VITALS (9 sets, daily range): BP systolic 120–145; BP diastolic 64–74; PULSE 68–91; RESP 18–20; TEMP 96.1–99.5; O2SAT 92–96
[2016-07-02] MEDS: ALPRAZolam 0.25 MG TAB PO PRN (01:50)
[2016-07-02] MEDS: HYPROMELLOSE 0.3 % OPTH GEL 10 GM (0.34 FL OZ) TUBE EACH EYE SCH ×4 (04:00→22:44)
[2016-07-02] MEDS: metroNIDAZOLE 500 MG TAB PO SCH ×3 (06:00→22:43)
[2016-07-02] MEDS: INSULIN ASPART SUPPLEMENTAL SCALE SQ SCH ×4 (07:00→21:00)
--- NOTE | 2016-07-02 07:40 | RADRPT ---
EXAM DATE/TIME: 07/02/2016 07:00 [facility] COMPARISON: CHEST SINGLE AP, June 20, 2016, 12:44. INDICATIONS : Infiltrate. Shortness of breath with exertion. MEDICAL HISTORY : Gastroesophageal reflux disease. COPD. Hypertension. Muscle weakness. Abdominal aortic aneurysm. Myoc ardial infarction. Afib. Chronic renal disease. Bladder cancer. Arthritis. Peripheral vascular diseas e. SURGICAL HISTORY : Coronary artery stent. ENCOUNTER: Subsequent ACUITY: 3 weeks PAIN SCORE: 0/10 LOCATION: Bilateral chest FINDINGS: A single view of the chest demonstrates hyperinflation which can be seen with COPD. Improving left ba silar density. Right lung is relatively clear although there is some minimal scarring in the right up per lobe laterally. Heart is normal in size. The mediastinal contours are unremarkable. Osseous str uctures are intact. CONCLUSION: Hyperinflation with left basilar density slightly improved. Mani Lopez MD on July 02, 2016 at 7:37 Board Certified Radiologist. This report was verified electronically.
[2016-07-02] MEDS: VORICONAZOLE 200 MG TAB PO SCH ×2 (09:21→22:42)
[2016-07-02] MEDS: PANTOPRAZOLE SOD 40 MG DELAYED RELEASE TAB PO SCH (09:21)
[2016-07-02] MEDS: FUROSEMIDE 40 MG TAB PO SCH (09:21)
[2016-07-02] MEDS: LACTOBACILLUS ACIDOPHILUS TAB PO SCH ×3 (09:22→18:02)
[2016-07-02] MEDS: LISINOPRIL 20 MG TAB PO SCH (09:22)
[2016-07-02] MEDS: POTASSIUM CHLORIDE 20 MEQ CONTROLLED RELEASE TAB PO SCH (09:22)
[2016-07-02] MEDS: METOPROLOL TARTRATE 50 MG TAB PO SCH ×2 (09:22→22:42)
[2016-07-02] MEDS: ASPIRIN 81 MG CHEW TAB CHEW SCH (09:22)
[2016-07-02] MEDS: POTASSIUM PHOSPHATE MONOBASIC 500 MG TAB PO SCH ×2 (09:22→22:43)
[2016-07-02] MEDS: predniSONE 10 MG TAB PO SCH (09:22)
[2016-07-02] MEDS: HEPARIN SODIUM - SQ 10,000 UNITS/ML VIAL SQ SCH ×2 (09:23→21:00)
[2016-07-02] MEDS: INSULIN DETEMIR 100 UNITS/ML VIAL SQ SCH ×2 (09:23→21:00)
[2016-07-02] MEDS: BUDESONIDE-FORMOTEROL 160/4.5 MCG INHALER INH SCH ×2 (09:25→21:00)
[2016-07-02] MEDS ORDERED: VORI200 PO (11:01)
[2016-07-02] MEDS ORDERED: METR-1 PO (11:01)
[2016-07-02] MEDS ORDERED: PRED5TAB PO (11:01)
--- NOTE | 2016-07-02 13:15 | HHI.PR ---
Subjective Remarks f/u for SOB. patient continues to c/o SOB but he is in no distress. denied any cough, CP, palpitations, or lightheadedness or dizziness. Objective Vitals Vital Signs Date Time Temp Pulse Resp B/P Pulse Ox O2 Delivery O2 Flow Rate FiO2 07/02/16 12:00 96.8 81 18 124/65 93 07/02/16 11:11 92 Nasal Cannula 2.00 07/02/16 11:11 2.00 07/02/16 10:00 Nasal Cannula 2.00 07/02/16 08:13 96.1 72 18 139/64 93 07/02/16 04:23 98.5 82 20 124/71 92 07/02/16 00:12 98.4 82 18 120/74 93 07/01/16 20:00 98.5 85 18 124/72 92 07/01/16 18:47 18 07/01/16 16:00 97.1 90 20 124/58 96 I/O 07/01/16 07/01/16 07/01/16 07/02/16 07/02/16 07/02/16 07:00 15:00 23:00 07:00 15:00 23:00 Intake Total 480 ml 480 ml 240 ml Output Total 350 ml Balance 480 ml 130 ml 240 ml Intake Oral 480 ml 480 ml 240 ml Output Urine Total 350 ml # Voids 2 Result Diagram: 07/01/1615 07/01/16 0715 Objective Remarks Gen NAD CV RRR. no r/m/g Abd: soft NDNT Ext elbow no erythema, or swelling noted. full ROM. no pain. Procedures Incision and drainage of right hand abscess Bronchoscopy EGD with dilatation Medications and IVs Current Medications IV Flush (NS Flush) 2 ml UNSCH PRN IVF FLUSH AFTER USING IV ACCESS Last administered on 07/01/16 09:17; Start 06/05/16 at 12:30 Adenosine (Adenocard Inj) 6 mg ONCE ONCE IV PUSH Last administered on 13:36; Start 06/05/16 at 12:30; Stop 06/05/16 at 12:31; Status DC Adenosine (Adenocard Inj) 12 mg ONCE ONCE IV PUSH Last administered on 13:37; Start 06/05/16 at 12:30; Stop 06/05/16 at 12:31; Status DC Adenosine (Adenocard Inj) 18 mg STK-MED ONCE .ROUTE ; Start 06/05/16 at 12:29; Stop 06/05/16 at 12:30; Status DC Adenosine (Adenocard Inj) 6 mg STK-MED ONCE .ROUTE ; Start 06/05/16 at 12:31; Stop 06/05/16 at 12:32; Status DC Adenosine (Adenocard Inj) 6 mg ONCE ONCE IV PUSH ; Start 06/05/16 at 12:45; Stop 06/05/16 at 12:46; Status DC Adenosine (Adenocard Inj) 12 mg ONCE ONCE IV PUSH ; Start 06/05/16 at 12:45; Stop 06/05/16 at 12:46; Status DC Diltiazem HCl (Cardizem Inj) 25 mg STK-MED ONCE .ROUTE ; Start 06/05/16 at 12:41 ; Stop 06/05/16 at 12:42; Status DC Diltiazem HCl (Cardizem Inj) 25 mg ONCE ONCE IV Last administered on 06/05/16 13:38; Start 06/05/16 at 13:15; Stop 06/05/16 at 13:16; Status DC Diltiazem HCl 25 mg 25 mg STK-MED ONCE .ROUTE Last administered on 06/05/16 13: 37; Start 06/05/16 at 13:02; Stop 06/05/16 at 13:03; Status DC Vancomycin HCl 1200 mg/Sodium Chloride 262 ml @ 250 mls/hr ONCE ONCE IV Last administered on 06/05/16 14:45; Start 06/05/16 at 13:15; Stop 06/05/16 at 14:17; Status DC Cefepime HCl 2000 mg/Sodium Chloride 100 ml @ 200 mls/hr ONCE ONCE IV Last administered on 06/05/16 16:13; Start 06/05/16 at 13:15; Stop 06/05/16 at 13:44; Status DC Diltiazem HCl/ Sodium Chloride (Cardizem Inj/NS Inj) 125 ml @ 0 mls/hr TITRATE IV Last administered on 06/11/16 21:47; Start 06/05/16 at 13:30; Stop 06/12/16 at 08:27; Status DC Diltiazem HCl (Cardizem Inj) 20 mg ONCE ONCE IV Last administered on 06/05/16 14:35; Start 06/05/16 at 14:15; Stop 06/05/16 at 14:16; Status DC Diltiazem HCl 20 mg 20 mg ONCE ONCE IV Last administered on 06/05/16 16:16; Start 06/05/16 at 14:15; Stop 06/05/16 at 14:16; Status DC Pharmacy Profile Note 0 ml @ 0 mls/hr UNSCH OTHER ; Start 06/05/16 at 15:45; Stop 06/21/16 at 14:20; Status DC Cefepime HCl/ Sodium Chloride (Maxipime Inj/NS Inj) 100 ml @ 200 mls/hr Q12H IV Last administered on 06/06/16 14:58; Start 06/06/16 at 02:00; Stop 06/06/16 at 19:04; Status DC Acetaminophen (Tylenol) 650 mg Q4H PRN PO FEVER/ PAIN 1-5 Last administered on 06/21/16 01:23; Start 06/05/16 at 15:45 Acetaminophen/ Hydrocodone Bitart ([place] 5-325 Mg) 1 tab Q4H PRN PO PAIN 6-10 Last administered on 07/01/16 23:21; Start 06/05/16 at 15:45 Hydromorphone HCl (Dilaudid Pf Inj) 0.2 mg Q4H PRN IV PUSH BREAKTHROUGH PAIN Last administered on 06/05/16 16:47; Start 06/05/16 at 15:45 Ondansetron HCl (Zofran Inj) 4 mg Q8HR PRN IV PUSH NAUSEA Last administered on 06/17/16 13:26; Start 06/05/16 at 15:45 Albuterol Sulfate (Proair Hfa Inh) 2 puff QID INH Last administered on 18:00; Start 06/05/16 at 18:00; Stop 06/16/16 at 20:36; Status DC Aspirin (Aspirin Chew) 81 mg DAILY CHEW Last administered on 07/02/16 09:22; Start 06/06/16 at 09:00 Budesonide/ Formoterol Fumarate (Symbicort 160-4.5 Inh) 2 puff BID INH Last administered on 07/02/16 09:25; Start 06/05/16 at 21:00 Lisinopril (Prinivil) 20 mg DAILY PO Last administered on 07/02/16 09:22; Start 06/06/16 at 09:00 Tiotropium [place] (Spiriva Inh) 18 mcg DAILY INH Last administered on 09:01; Start 06/06/16 at 09:00; Stop 06/16/16 at 20:30; Status DC Diltiazem HCl (Cardizem Cd) 180 mg DAILY PO Last administered on 06/18/16 09: 50; Start 06/06/16 at 09:00; Stop 06/19/16 at 05:49; Status DC Insulin Detemir (Levemir Inj) 8 units HS SQ Last administered on 06/09/16 20:35 ; Start 06/05/16 at 21:00; Stop 06/13/16 at 16:27; Status DC Insulin Detemir (Levemir Inj) 12 units DAILY SQ Last administered on 06/09/16 09:00; Start 06/06/16 at 09:00; Stop 06/13/16 at 16:27; Status DC Naphazoline HCl (Clear Eyes Redness Relief 0.012% Opth Soln) 1 drop QID PRN EACH EYE EYE ITCH; Start 06/05/16 at 16:30 Albuterol Sulfate (Albuterol Neb) 0.63 mg Q6HR NEB PRN NEB SHORTNESS OF BREATH ; Start 06/05/16 at 15:45; Stop 06/09/16 at 09:32; Status DC Dextrose (D50w (Vial) Inj) 25 ml UNSCH PRN IV PUSH HYPOGLYCEMIA-SEE COMMENTS Last administered on 06/10/16 06:34; Start 06/05/16 at 15:45 Glucagon (Glucagon Inj) 1 mg UNSCH PRN OTHER HYPOGLYCEMIA-SEE COMMENTS; Start 06/05/16 at 15:45 Insulin Aspart 1 1 ACHS SLIDING SCALE SQ Last administered on 06/12/16 20:36; Start 06/05/16 at 16:00; Stop 06/13/16 at 05:08; Status DC Vancomycin HCl/ Sodium Chloride (Vancomycin Inj/ NS 500 ml Inj) 515 ml @ 250 mls/hr Q18H IV Last administered on 06/09/16 06:09; Start 06/06/16 at 06:00; Stop 06/09/16 at 10:22; Status DC Miscellaneous Information SPECIFIC LAB TO BE DRAWN:VANCOMYCIN TROUGH DATE TO... ONCE ONCE XX ; Start 06/08/16 at 11:45; Stop 06/08/16 at 11:46; Status DC Sodium Chloride (NS 500 ml Inj) 500 ml @ 500 mls/hr BOLUS ONCE IV Last administered on 06/05/16 20:36; Start 06/05/16 at 20:15; Stop 06/05/16 at 21:14; Status DC Albuterol/ Ipratropium (Duoneb Neb) 1 ampule Q4HR NEB PRN NEB SOB/WHEEZING; Start 06/05/16 at 20:30; Stop 06/09/16 at 09:30; Status DC Alprazolam (Xanax) 0.25 mg Q12HR PRN PO ANXIETY Last administered on 07/02/16 01:50; Start 06/06/16 at 13:00 Zolpidem Tartrate (Ambien) 5 mg HS PRN PO SLEEP Last administered on 07/01/16 22:04; Start 06/06/16 at 21:00 Furosemide (Lasix Inj) 20 mg ONCE ONCE IV PUSH Last administered on 06/08/16 08:45; Start 06/08/16 at 08:45; Stop 06/08/16 at 08:52; Status DC Miscellaneous Information SPECIFIC LAB TO BE DRAWN:VANCOMY... ONCE ONCE XX Last administered on 06/09/16 05:45; Start 06/09/16 at 05:45; Stop 06/09/16 at 05: 46; Status DC Furosemide (Lasix Inj) 40 mg STK-MED ONCE .ROUTE ; Start 06/08/16 at 17:02; Stop 06/08/16 at 17:03; Status DC Albuterol/ Ipratropium (Duoneb Neb) 1 ampule Q4HR NEB NEB Last administered on 06/13/16 11:11; Start 06/09/16 at 12:00; Stop 06/13/16 at 12:11; Status DC Albuterol Sulfate (Albuterol Neb) 0.63 mg Q2HR NEB PRN NEB SHORTNESS OF BREATH Last administered on 06/14/16 19:52; Start 06/09/16 at 10:00 Potassium Chloride 20 meq 20 meq ONCE ONCE PO Last administered on 06/09/16 09 :30; Start 06/09/16 at 09:30; Stop 06/09/16 at 09:45; Status DC Vancomycin HCl/ Sodium Chloride (Vancomycin Inj/ NS 250 ml Inj) 250 ml @ 250 mls/hr Q12H IV Last administered on 06/10/16 06:45; Start 06/09/16 at 18:00; Stop 06/10/16 at 21:19; Status DC Miscellaneous Information SPECIFIC LAB TO BE DILLAN... ONCE ONCE XX ; Start at 17:45; Stop 06/10/16 at 17:46; Status DC Furosemide (Lasix Inj) 20 mg DAILY IV PUSH Last administered on 06/20/16 08:09 ; Start 06/09/16 at 12:30; Stop 06/20/16 at 21:00; Status DC Potassium Chloride (KCl) 20 meq DAILY PO Last administered on 06/20/16 08:09; Start 06/09/16 at 12:30; Stop 06/20/16 at 11:10; Status DC Guaifenesin/ Codeine Phosphate (Robitussin Ac 200-20 Mg/10 ml Liq) 10 ml Q6H PRN PO COUGH Last administered on 06/26/16 21:09; Start 06/10/16 at 10:00 Lidocaine HCl (Xylocaine 2% Inj) 100 mg STK-MED ONCE .ROUTE ; Start 06/10/16 at 16:21; Stop 06/10/16 at 16:22; Status DC Lidocaine HCl 50 ml 50 ml STK-MED ONCE .ROUTE ; Start 06/10/16 at 16:34; Stop 06/10/16 at 16:35; Status DC Vancomycin HCl/ Sodium Chloride (Vancomycin Inj/ NS 250 ml Inj) 250 ml @ 250 mls/hr Q24H IV Last administered on 06/11/16 08:53; Start 06/11/16 at 08:00; Stop 06/11/16 at 09:09; Status DC Miscellaneous Information SPECIFIC LAB TO BE DRAWN:VA... ONCE ONCE XX ; Start 06/11/16 at 07:45; Stop 06/11/16 at 07:46; Status DC Vancomycin HCl/ Sodium Chloride (Vancomycin Inj/ NS 500 ml Inj) 515 ml @ 250 mls/hr Q18H IV Last administered on 06/13/16 08:26; Start 06/11/16 at 20:00; Stop 06/13/16 at 10:21; Status DC Miscellaneous Information SPECIFIC LAB TO BE DRAWN:VANCOMYCIN TROUGH DATE TO... ONCE ONCE XX Last administered on 06/13/16 07:45; Start 06/13/16 at 07:45; Stop 06/13/16 at 07:46; Status DC Methylprednisolone Sodium Succinate (SoluMEDROL INJ) 40 mg Q6H IV PUSH Last administered on 06/12/16 04:32; Start 06/11/16 at 11:00; Stop 06/12/16 at 08:28; Status DC Docusate Sodium 100 mg 100 mg BID PRN PO CONSTIPATION Last administered on 06/13 12:38; Start 06/11/16 at 10:30 Levofloxacin/ Dextrose (Levaquin 500 Mg Premix Inj) 100 ml @ 100 mls/hr Q24H IV Last administered on 06/12/16 18:13; Start 06/11/16 at 18:00; Stop 06/13/16 at 16:27; Status DC Methylprednisolone Sodium Succinate (SoluMEDROL INJ) 40 mg Q8HR IV PUSH Last administered on 06/13/16 12:38; Start 06/12/16 at 14:00; Stop 06/13/16 at 16:27 ; Status DC Insulin Aspart 1 1 ACHS SLIDING SCALE SQ Last administered on 07/01/16 17:26 ; Start 06/13/16 at 07:00 Vancomycin HCl/ Sodium Chloride (Vancomycin Inj/ NS 250 ml Inj) 262.5 ml @ 250 mls/hr Q24H IV Last administered on 06/21/16 08:43; Start 06/14/16 at 08:00; Stop 06/21/16 at 14:21; Status DC Miscellaneous Information SPECIFIC LAB TO BE DILLAN... ONCE ONCE XX ; Start at 07:45; Stop 06/16/16 at 07:46; Status DC Insulin Detemir (Levemir Inj) 10 units HS SQ ; Start 06/13/16 at 21:00; Stop 03/20 at 07:26; Status DC Insulin Detemir (Levemir Inj) 15 units DAILY SQ ; Start 06/14/16 at 09:00; Stop 06/14/16 at 09:00; Status DC Methylprednisolone Sodium Succinate (SoluMEDROL INJ) 40 mg Q12HR IV PUSH Last administered on 06/15/16 08:17; Start 06/13/16 at 21:00; Stop 06/15/16 at 13:31 ; Status DC Insulin Detemir (Levemir Inj) 8 units HS SQ Last administered on 06/27/16 22: 30; Start 06/14/16 at 21:00 Insulin Detemir (Levemir Inj) 12 units DAILY SQ Last administered on 06/18/16 09:00; Start 06/14/16 at 09:00; Stop 06/18/16 at 09:27; Status DC Pantoprazole Sodium (Protonix) 40 mg DAILY PO Last administered on 07/02/16 09: 21; Start 06/14/16 at 09:00 Prednisone (Deltasone) 40 mg DAILY PO Last administered on 06/17/16 08:39; Start 06/15/16 at 13:30; Stop 06/17/16 at 15:31; Status DC Miscellaneous Information SPECIFIC LAB TO BE DILLAN... ONCE ONCE XX ; Start at 07:45; Stop 06/17/16 at 07:46; Status DC Piperacillin Sod/ Tazobactam Sod (Zosyn 4.5 Gm Premix) 100 ml @ 200 mls/hr Q8H IV Last administered on 06/21/16 12:46; Start 06/16/16 at 21:00; Stop at 14:21; Status DC Levofloxacin (Levaquin) 500 mg Q24H PO Last administered on 06/23/16 21:28; Start 06/16/16 at 20:00; Stop 06/24/16 at 19:59; Status DC Albuterol/ Ipratropium (Duoneb Neb) 1 ampule QID NEB NEB Last administered on 06/26/16 15:42; Start 06/17/16 at 08:00; Stop 06/28/16 at 10:42; Status DC Methylprednisolone Sodium Succinate (SoluMEDROL INJ) 40 mg Q8H IV Last administered on 06/19/16 05:33; Start 06/17/16 at 13:00; Stop 06/19/16 at 08:37 ; Status DC Miscellaneous Information SPECIFIC LAB TO BE DRAWN:VANCOMYCIN TROUGH DATE TO... ONCE ONCE XX ; Start 06/18/16 at 07:45; Stop 06/18/16 at 07:46; Status DC Insulin Detemir (Levemir Inj) 18 units DAILY SQ Last administered on 07/02/16 09:23; Start 06/19/16 at 09:00 Diltiazem HCl (Cardizem Cd) 240 mg DAILY PO Last administered on 06/25/16 09: 13; Start 06/19/16 at 09:00; Stop 06/26/16 at 08:09; Status DC Methylprednisolone Sodium Succinate (SoluMEDROL INJ) 40 mg Q12HR IV Last administered on 06/21/16 08:45; Start 06/19/16 at 21:00; Stop 06/21/16 at 18:05 ; Status DC Hypromellose 2 drop 2 drop Q6H EACH EYE Last administered on 07/02/16 09:23; Start 06/19/16 at 10:00 Dextrose/Sodium Chloride (D5W-1/2 NS 1000 ml Inj) 1,000 ml @ 0 mls/hr Q0M IV ; Start 06/19/16 at 13:17; Stop 06/21/16 at 10:46; Status DC Albuterol Sulfate (Albuterol Concentrated Neb) 2.5 mg 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 ; Start 06/19 at 13:30; Stop 06/23/16 at 13:29; Status DC Furosemide (Lasix Inj) 20 mg BID@09,18 IV PUSH Last administered on 06/21/16 16:41; Start 06/20/16 at 18:00; Stop 06/21/16 at 18:06; Status DC Potassium Chloride (KCl) 20 meq BID PO Last administered on 06/21/16 08:43; Start 06/20/16 at 21:00; Stop 06/21/16 at 10:49; Status DC Albuterol Sulfate (Albuterol Neb) 2.5 mg STK-MED ONCE .ROUTE ; Start 06/20/16 at 11:33; Stop 06/20/16 at 11:34; Status DC Ketamine HCl (Ketalar Inj) 500 mg STK-MED ONCE .ROUTE ; Start 06/20/16 at 11:51 ; Stop 06/20/16 at 11:52; Status DC Albuterol Sulfate (Albuterol Neb) 2.5 mg UNSCH X1 PRN NEB SHORTNESS OF BREATH; Start 06/20/16 at 12:30; Stop 06/21/16 at 12:29; Status DC Lidocaine HCl (Xylocaine 2% Inj) 50 ml STK-MED ONCE E-TRACHE Last administered on 06/20/16 12:07; Start 06/20/16 at 12:07; Stop 06/20/16 at 12:48; Status DC Miscellaneous Information ALL NURSING DEPARTME... UNSCH PRN XX SEE LABEL COMMENTS; Start 06/20/16 at 12:42; Stop 06/21/16 at 12:41; Status DC Midazolam HCl (Versed Inj) 2 mg STK-MED ONCE .ROUTE ; Start 06/20/16 at 13:34; Stop 06/20/16 at 13:35; Status DC Lactobacillus Acidophilus (Lactinex) 1 tab TID PO Last administered on 09:22; Start 06/21/16 at 13:00 Potassium Chloride (KCl) 40 meq BID PO Last administered on 06/22/16 21:23; Start 06/21/16 at 21:00; Stop 06/23/16 at 05:34; Status DC Potassium Chloride (KCl) 40 meq ONCE ONCE PO Last administered on 06/21/16 12 :45; Start 06/21/16 at 11:00; Stop 06/21/16 at 11:08; Status DC Miscellaneous Information SPECIFIC LAB TO BE DILLAN... ONCE ONCE XX ; Start at 07:45; Stop 06/24/16 at 07:45; Status DC Prednisone (Deltasone) 20 mg DAILY PO Last administered on 06/23/16 08:42; Start 06/22/16 at 09:00; Stop 06/23/16 at 19:23; Status DC Furosemide (Lasix) 40 mg DAILY PO Last administered on 07/02/16 09:21; Start at 09:00 Fluconazole (Diflucan) 400 mg DAILY PO Last administered on 06/23/16 08:42; Start 06/22/16 at 09:00; Stop 06/23/16 at 12:29; Status DC Metronidazole (Flagyl) 500 mg Q8HR PO Last administered on 07/02/16 06:00; Start 06/22/16 at 14:00; Stop 07/06/16 at 13:59 Amiodarone HCl (Cordarone) 400 mg Q12HR PO ; Start 06/23/16 at 09:00; Stop 06/23 at 09:00; Status DC Amiodarone HCl 400 mg 400 mg ONCE ONCE PO ; Start 06/23/16 at 03:45; Stop 06/23 at 03:45; Status DC Amiodarone HCl 150 mg/Dextrose 100 ml @ 600 mls/hr ONCE ONCE IV Last administered on 06/23/16 04:10; Start 06/23/16 at 03:45; Stop 06/23/16 at 17:26 ; Status DC Amiodarone HCl/ Dextrose (Cordarone Inj/ D5W ([place]) Inj) 259 ml @ 0 mls/hr CONTINUOUS IV Last administered on 06/23/16 04:30; Start 06/23/16 at 03:45; Stop 06/23/16 at 17:26; Status DC Potassium Chloride (KCl) 20 meq DAILY PO Last administered on 07/02/16 09:22; Start 06/23/16 at 09:00 Potassium Phosphate (K-Phos) 1,000 mg Q12HR PO Last administered on 07/02/16 09 :22; Start 06/23/16 at 09:00 Prednisone (Deltasone) 15 mg DAILY PO Last administered on 06/27/16 08:41; Start 06/24/16 at 09:00; Stop 06/27/16 at 12:53; Status DC Propofol (Diprivan 200 Mg/20 ml Inj) 200 mg STK-MED ONCE IV ; Start 06/20/16 at 12:00; Stop 06/24/16 at 13:32; Status DC Diltiazem HCl (Cardizem Cd) 120 mg DAILY PO Last administered on 06/26/16 10: 54; Start 06/26/16 at 09:00; Stop 06/27/16 at 07:28; Status DC Metoprolol Tartrate (Lopressor) 12.5 mg Q12HR PO Last administered on 21:09; Start 06/26/16 at 09:00; Stop 06/27/16 at 07:28; Status DC Miscellaneous (Pill Splitter) 1 ea UNSCH PRN OTHER SEE LABEL COMMENTS; Start at 08:30 Propofol (Diprivan 200 Mg/20 ml Inj) 60 mg STK-MED ONCE IV ; Start 06/26/16 at 12:43; Stop 06/26/16 at 12:56; Status DC Miscellaneous Information ALL NURSING DEPARTME... UNSCH PRN XX SEE LABEL COMMENTS; Start 06/26/16 at 13:45; Stop 06/27/16 at 13:44; Status DC Metoprolol Tartrate (Lopressor) 50 mg Q12HR PO Last administered on 07/02/16 09 :22; Start 06/27/16 at 09:00 Heparin Sodium (Porcine) (Heparin Inj) 5,000 units Q12HR SQ Last administered on 06/28/16 09:57; Start 06/27/16 at 11:00 Prednisone (Deltasone) 10 mg DAILY PO Last administered on 07/02/16 09:22; Start 06/28/16 at 09:00; Stop 07/02/16 at 10:58; Status DC Voriconazole 200 mg 200 mg Q12HR PO Last administered on 07/02/16 09:21; Start 06/27/16 at 15:33 Pharmacy Profile Note ([facility]) 0 ml @ 0 mls/hr UNSCH OTHER ; Start 06/27/16 at 14:00 Prednisone (Deltasone) 5 mg DAILY PO ; Start 07/03/16 at 09:00 A/P Problem List: (1) SVT (supraventricular tachycardia) ICD Code: I47.1 Status: Acute (2) Severe sepsis ICD Code: A41.9 Status: Acute (3) COPD with acute exacerbation ICD Code: J44.1 Status: Acute (4) Sepsis ICD Code: A41.9 Status: Acute (5) Cellulitis of right upper extremity ICD Code: L03.113 Status: Acute (6) Abscess of hand, right ICD Code: L02.511 Status: Acute (7) Olecranon bursitis, right elbow ICD Code: M70.21 Status: Acute Assessment and Plan severe sepsis due to cellulitis of the right upper extremity/ right olecranon bursitis -resolved - venous Doppler of the upper extremities with no DVT-XR of the right elbow with possible olecranon bursitis- -US of the right upper extremity with a complex mass overlying the right third finger- s/p I/D of the right nand mass/fluid collection. -S/p vancomycin culture positive for MRSA- keep the right hand elevated- continue pain control -ID/hand surgery and ortho following; recommended conservative treatment of olecranon bursitis. HAP - Stable status post Zosyn and Levaquin. -Repeat chest x-ray showed improvement. - Bronchial washings culture with Aspergillus niger, on Voriconazole- treatment per ID recommend at least 1 month of treatment. Pulmonary nodules. Status post bronchoscopy negative cytology. Repeat CT in 2 months -Pulm signed ff. SVT - due to sepsis-on beta rosy - cardiology consult appreciated. ischemic cardiomyopathy - s/p stent placement 2001, follow-up angiogram 2 weeks ago no intervention needed per patient; continue aspirin and lisinopril - elevated troponin likely due to tachycardia/ sepsis. on asa -echo with EF 35% cautious use of BB hx of COPD -cardiology reconsulted 2/2 VT felt to be secondary to NAN . Info from Dr Vora shows ECHO May 2016 with normal EF and cath from 2014 (Apr per pt) with stable CAD. Elevated trop likely from sepsis acute on chronic systolic CHF - continue Lasix and monitor electrolytes. -improving. on oral medication. COPD exacerbation -improving dyspnea on exertion continue steroids and neb treatment - will monitor -patient failed walk test recommend oxygen which he was on prior. Diabetes with hypoglycemic episode -with no further hypoglycemia. Hyperglycemic secondary to steroids and noncompliance(refusing fingersticks and Levemir because he does not want to be poked). - Adjust Levemir accordingly.- accu-check with SSI. Patient again counseled regarding compliance anemia of chronic disease - s/p PRBC transfusion with improved H/H- will monitor -stool occult blood positive 1. Continue PPI and consulted GI for endoscopy which showed gastritis and esophageal ring status post dilatations and biopsy. ok with GI to restart aspirin. Hypertension. - Improving with Lasix and beta rosy status post Cardizem. Dry eyes. -Eye lubricants. -C. difficile colitis. - Improving no diarrhea Continue Lactinex and Flagyl until July 06. Monitor electrolytes DVT prophylaxis, SCD's and subcutaneous heparin Dispo: PT recommend home with outpatient PT. Recommend oxygen but patient is homeless so cannot get oxygen unless patient has a place. d/w case management. Asia Gonsales MD Jul 02, 2016 13:15
[2016-07-02] MEDS: ACETAMINOPHEN/HYDROcodone 325 MG/5 MG TAB PO PRN (14:32)
--- NOTE | 2016-07-02 18:12 | HHI.PR ---
Subjective Remarks Better today. On O2 at 2 L. Walks in [place]. Still SOB. Objective Vital Signs Date Time Temp Pulse Resp B/P Pulse Ox O2 Delivery O2 Flow Rate FiO2 07/02/16 16:00 97.1 80 18 145/67 93 07/02/16 15:06 68 07/02/16 12:00 96.8 81 18 124/65 93 07/02/16 11:11 92 Nasal Cannula 2.00 07/02/16 11:11 2.00 07/02/16 10:00 Nasal Cannula 2.00 07/02/16 08:13 96.1 72 18 139/64 93 07/02/16 04:23 98.5 82 20 124/71 92 07/02/16 00:12 98.4 82 18 120/74 93 07/01/16 20:00 98.5 85 18 124/72 92 07/01/16 18:47 18 I/O 07/01/16 07/01/16 07/01/16 07/02/16 07/02/16 07/02/16 07:00 15:00 23:00 07:00 15:00 23:00 Intake Total 480 ml 480 ml 240 ml 960 ml Output Total 350 ml 600 ml 675 ml Balance 480 ml 130 ml 240 ml 360 ml -675 ml Intake Oral 480 ml 480 ml 240 ml 960 ml Output Urine Total 350 ml 600 ml 675 ml # Voids 2 # Bowel Movements 1 Result Diagram: 07/01/1671407/01/1615 Objective Remarks This is an elderly averagely built white male who is pale and alert. EXTREMITIES: There is no clubbing. There is no leg edema. HEENT: Head normocephalic. Pupils are reactive and equal. Tongue was moist. Throat was clear. Ears, no inflammation. NECK: Supple. No venous distension. No thyromegaly or lymphadenopathy. CHEST: Decreased breath sounds at the bases with occ Wheeze . HEART: The heart sounds are regular S1-S2 with no murmur. No S3. ABDOMEN: The abdomen is soft, nontender. No organomegaly. The bowel sounds are active. EXTREMITIES: Edema 1+ with diminished pulses and joint deformities of the extremities. SKIN: warm, dry. NEUROLOGIC: He is alert and oriented. Moves all extremities.There are no gross deficits. Assessment and Plan Assessment and Plan IMPRESSION 1. Cellulitis of the right upper extremity resolving. 2. COPD with emphysema and chronic bronchitis 3. Coronary artery disease with stenting 4. Diabetes mellitus 5. History of hypertension. 6. Left Lung nodules Plan : 1. PT evaluation and ambulate. 2. Cont Nebs bid, duoneb. 3. O2 at 3 L. 4. Continue lasix 40 mg Po daily. 5. Prednisone 5 mg daily 6. Voriconazole PO per Dr Velez 7. CBC, Liver profile Liv Pinedo MD Jul 02, 2016 18:12
[2016-07-02] MEDS: ZOLPIDEM TARTRATE 5 MG TAB PO PRN (22:42)
[2016-07-03] VITALS (10 sets, daily range): BP systolic 83–125; BP diastolic 56–71; PULSE 76–92; RESP 17–20; TEMP 95.6–98; O2SAT 92–97
[2016-07-03] MEDS: ALPRAZolam 0.25 MG TAB PO PRN (02:30)
[2016-07-03] MEDS: BUDESONIDE-FORMOTEROL 160/4.5 MCG INHALER INH SCH ×3 (02:31→21:00)
[2016-07-03] MEDS: ACETAMINOPHEN/HYDROcodone 325 MG/5 MG TAB PO PRN ×4 (02:31→21:26)
[2016-07-03] MEDS: HYPROMELLOSE 0.3 % OPTH GEL 10 GM (0.34 FL OZ) TUBE EACH EYE SCH ×4 (04:00→21:27)
[2016-07-03] MEDS: metroNIDAZOLE 500 MG TAB PO SCH ×3 (06:17→21:26)
[2016-07-03] MEDS: INSULIN ASPART SUPPLEMENTAL SCALE SQ SCH ×4 (06:18→21:00)
[2016-07-03 09:03] LABS: ALKALINE PHOSPHATASE 41 U/L (45-117); ALT (GPT) 28 U/L (12-78); ANION GAP 6 MEQ/L (5-15); AST (GOT) 27 U/L (15-37); BICARBONATE 31.5 MEQ/L (21.0-32.0); BLOOD UREA NITROGEN 22 MG/DL (7-18); CHLORIDE 106 MEQ/L (98-107); GLOMERULAR FILTRATION RATE 74 ML/MIN (>89); POTASSIUM 4.3 MEQ/L (3.5-5.1); SODIUM (NA) 143 MEQ/L (136-145); TOTAL BILIRUBIN ADULT 0.4 MG/DL (0.2-1.0)
[2016-07-03] MEDS: PANTOPRAZOLE SOD 40 MG DELAYED RELEASE TAB PO SCH (09:33)
[2016-07-03] MEDS: FUROSEMIDE 40 MG TAB PO SCH (09:33)
[2016-07-03] MEDS: LACTOBACILLUS ACIDOPHILUS TAB PO SCH ×3 (09:33→17:07)
[2016-07-03] MEDS: LISINOPRIL 20 MG TAB PO SCH (09:33)
[2016-07-03] MEDS: POTASSIUM PHOSPHATE MONOBASIC 500 MG TAB PO SCH ×2 (09:33→21:25)
[2016-07-03] MEDS: predniSONE 5 MG TAB PO SCH (09:33)
[2016-07-03] MEDS: METOPROLOL TARTRATE 50 MG TAB PO SCH ×2 (09:33→21:25)
[2016-07-03] MEDS: ASPIRIN 81 MG CHEW TAB CHEW SCH (09:34)
[2016-07-03] MEDS: POTASSIUM CHLORIDE 20 MEQ CONTROLLED RELEASE TAB PO SCH (09:34)
[2016-07-03] MEDS: VORICONAZOLE 200 MG TAB PO SCH ×2 (09:34→21:25)
[2016-07-03] MEDS: HEPARIN SODIUM - SQ 10,000 UNITS/ML VIAL SQ SCH ×2 (09:35→21:00)
[2016-07-03] MEDS: INSULIN DETEMIR 100 UNITS/ML VIAL SQ SCH (09:35)
--- NOTE | 2016-07-03 10:31 | HHI.PR ---
Subjective Remarks States that he has no vertigo. He does not have a home. He states that he is still short of breath with ambulation. No active chest pain. No coughing. No fevers or chills. Objective Vitals Vital Signs Date Time Temp Pulse Resp B/P Pulse Ox O2 Delivery O2 Flow Rate FiO2 07/03/16 09:45 Nasal Cannula 2.00 07/03/16 09:45 80 07/03/16 09:08 96.8 82 17 115/65 92 07/03/16 00:00 98.0 90 18 117/71 96 07/02/16 20:00 99.5 91 18 129/67 96 07/02/16 18:00 81 07/02/16 16:00 97.1 80 18 145/67 93 07/02/16 15:06 68 07/02/16 12:00 96.8 81 18 124/65 93 07/02/16 11:11 92 Nasal Cannula 2.00 07/02/16 11:11 2.00 I/O 07/02/16 07/02/16 07/02/16 07/03/16 07/03/16 07/03/16 07:00 15:00 23:00 07:00 15:00 23:00 Intake Total 240 ml 960 ml Output Total 600 ml 675 ml Balance 240 ml 360 ml -675 ml Intake Oral 240 ml 960 ml Output Urine Total 600 ml 675 ml # Voids 4 # Bowel Movements 1 Result Diagram: 07/01/16 0715 07/03/16 0757 Objective Remarks GENERAL: This is a well-nourished, well-developed patient, in no apparent distress. CARDIOVASCULAR: Regular rate and rhythm RESPIRATORY: Relatively Clear to auscultation. Breath sounds equal bilaterally. No wheezes, rales, or rhonchi. GASTROINTESTINAL: Abdomen soft, non-tender, nondistended. Normal active bowel sounds NEURO: Alert & Oriented x4 to person, place, time, situation. Moves all ext x4 Procedures Incision and drainage of right hand abscess Bronchoscopy EGD with dilatation A/P Problem List: (1) SVT (supraventricular tachycardia) ICD Code: I47.1 Status: Acute (2) Severe sepsis ICD Code: A41.9 Status: Acute (3) COPD with acute exacerbation ICD Code: J44.1 Status: Acute (4) Sepsis ICD Code: A41.9 Status: Acute (5) Cellulitis of right upper extremity ICD Code: L03.113 Status: Acute (6) Abscess of hand, right ICD Code: L02.511 Status: Acute (7) Olecranon bursitis, right elbow ICD Code: M70.21 Status: Acute Assessment and Plan Severe sepsis due to cellulitis of the right upper extremity/ right olecranon bursitis now resolved. - Previous venous Doppler of the upper extremities with no DVT -US of the right upper extremity with a complex mass overlying the right third finger- s/p I/D of the right hand mass/fluid collection with S/p vancomycin culture positive for MRSA- keep the right hand elevated- continue pain control -ID/hand surgery and ortho following; recommended conservative treatment of olecranon bursitis. Also acquired pneumonia - Stable status post treatment Zosyn and Levaquin. -Repeat chest x-ray showed improvement. - Bronchial washings culture with Aspergillus niger, on Voriconazole- treatment per ID recommend at least 1 month of treatment. Pulmonary nodules. Status post bronchoscopy negative cytology. Repeat CT in 2 months, follow-up with pulmonology as an outpatient. SVT - due to sepsis-on beta rosy - cardiology consult appreciated. ischemic cardiomyopathy - s/p stent placement 2001, follow-up angiogram 2 weeks ago no intervention needed per patient; continue aspirin and lisinopril - elevated troponin likely due to presenting tachycardia/ sepsis. on asa -echo with EF 35% cautious use of BB hx of COPD -cardiology reconsulted on 06/05, nonsustained VT felt to be secondary to NAN . Information from Dr Vora shows ECHO May 2016 with normal EF and cath from 2014 (Apr per pt) with stable CAD. Elevated trop likely from sepsis Acute on chronic systolic CHF exacerbation - continue Lasix and monitor electrolytes. improving. on oral medication. COPD exacerbation -improving dyspnea on exertion continue steroids and neb treatment -patient failed walk test recommend oxygen which he was on prior. Diabetes mellitus 2 with previous hypoglycemic episode -with no further hypoglycemia. Hyperglycemic secondary to steroids and noncompliance(refusing fingersticks and nightly Levemir because he does not want to be poked). - Adjust Levemir accordingly and will discontinue did not levemir.- accu-check with SSI with overall fair blood sugar control. Patient again counseled regarding compliance anemia of chronic disease - s/p PRBC transfusion with improved H/H- will monitor -stool occult blood positive 1. Continue PPI and consulted GI for endoscopy which showed gastritis and esophageal ring status post dilatations and biopsy. ok with GI to restart aspirin. Hypertension. - Improving with Lasix and beta rosy status post Cardizem. Dry eyes. Continue with Eye lubricants. -C. difficile colitis. - Improving no diarrhea Continue Lactinex and Flagyl until July 06. Monitor electrolytes DVT prophylaxis, SCD's and subcutaneous heparin Discharge Planning Dispo: PT recommend home with outpatient PT. Recommend oxygen but patient is homeless so cannot get oxygen unless patient has a place. Difficult disposition. Riddhi Velasquez MD Jul 03, 2016 10:31
[2016-07-03] MEDS ORDERED: LORazepam 1 MG TAB PO ONE (17:00)
--- NOTE | 2016-07-03 17:04 | HHI.PR ---
Subjective Remarks No complaints ,and On O2 at 2 L. Walks with help. Chest X laurel is better. Objective Vital Signs Date Time Temp Pulse Resp B/P Pulse Ox O2 Delivery O2 Flow Rate FiO2 07/03/16 13:40 95.6 78 20 111/59 97 07/03/16 12:15 97.0 76 20 118/66 96 07/03/16 11:10 95.6 92 20 83/56 96 07/03/16 10:07 93 Nasal Cannula 2.00 07/03/16 09:45 Nasal Cannula 2.00 07/03/16 09:45 80 07/03/16 09:08 96.8 82 17 115/65 92 07/03/16 00:00 98.0 90 18 117/71 96 07/02/16 20:00 99.5 91 18 129/67 96 07/02/16 18:00 81 I/O 07/02/16 07/02/16 07/02/16 07/03/16 07/03/16 07/03/16 07:00 15:00 23:00 07:00 15:00 23:00 Intake Total 240 ml 960 ml Output Total 600 ml 675 ml Balance 240 ml 360 ml -675 ml Intake Oral 240 ml 960 ml Output Urine Total 600 ml 675 ml # Voids 4 # Bowel Movements 1 Result Diagram: 07/01/16 0715 07/03/16 0757 Objective Remarks This is an elderly averagely built white male who is pale and alert. EXTREMITIES: There is no clubbing. There is no leg edema. HEENT: Head normocephalic. Pupils are reactive and equal. Tongue was moist. Throat was clear. Ears, no inflammation. NECK: Supple. No venous distension. No thyromegaly or lymphadenopathy. CHEST: Decreased breath sounds at the bases . HEART: The heart sounds are regular S1-S2 with no murmur. No S3. ABDOMEN: The abdomen is soft, nontender. No organomegaly. The bowel sounds are active. EXTREMITIES: Minimal Edema with diminished pulses and joint deformities of the extremities. SKIN: warm, dry. NEUROLOGIC: He is alert and oriented. Moves all extremities.There are no gross deficits. Assessment and Plan Assessment and Plan IMPRESSION 1. Cellulitis of the right upper extremity resolving. 2. COPD with emphysema and chronic bronchitis 3. Coronary artery disease with stenting 4. Diabetes mellitus 5. History of hypertension. 6. Left Lung nodules Plan : 1. PT evaluation and ambulate. 2. Cont Nebs bid, duoneb. 3. O2 at 3 L. 4. Continue lasix 40 mg Po daily. 5. Prednisone 5 mg daily 6. Voriconazole PO per Dr Velez 7. To rehab soon Liv Pinedo MD Jul 03, 2016 17:04
[2016-07-03] MEDS: ZOLPIDEM TARTRATE 5 MG TAB PO PRN (21:25)
[2016-07-04] VITALS (7 sets, daily range): BP systolic 117–135; BP diastolic 62–80; PULSE 74–98; RESP 18–22; TEMP 96.7–97.5; O2SAT 88–98
[2016-07-04] MEDS: ALPRAZolam 0.25 MG TAB PO PRN (01:58)
[2016-07-04] MEDS: HYPROMELLOSE 0.3 % OPTH GEL 10 GM (0.34 FL OZ) TUBE EACH EYE SCH ×4 (04:00→22:00)
[2016-07-04] MEDS: metroNIDAZOLE 500 MG TAB PO SCH ×3 (05:56→22:03)
[2016-07-04] MEDS: INSULIN ASPART SUPPLEMENTAL SCALE SQ SCH ×4 (05:57→21:00)
[2016-07-04] MEDS: INSULIN DETEMIR 100 UNITS/ML VIAL SQ SCH ×2 (09:00→10:57)
[2016-07-04] MEDS: HEPARIN SODIUM - SQ 10,000 UNITS/ML VIAL SQ SCH ×2 (09:00→21:00)
[2016-07-04] MEDS: BUDESONIDE-FORMOTEROL 160/4.5 MCG INHALER INH SCH ×2 (10:53→21:00)
[2016-07-04] MEDS: SODIUM CHLORIDE 0.9% FLUSH 5 ML FLUSH IVF PRN (10:55)
[2016-07-04] MEDS: METOPROLOL TARTRATE 50 MG TAB PO SCH ×2 (10:56→22:03)
[2016-07-04] MEDS: PANTOPRAZOLE SOD 20 MG DELAYED RELEASE TAB PO SCH (10:56)
[2016-07-04] MEDS: ASPIRIN 81 MG CHEW TAB CHEW SCH (10:56)
[2016-07-04] MEDS: POTASSIUM PHOSPHATE MONOBASIC 500 MG TAB PO SCH ×2 (10:57→22:02)
[2016-07-04] MEDS: LACTOBACILLUS ACIDOPHILUS TAB PO SCH ×3 (10:57→17:12)
[2016-07-04] MEDS: VORICONAZOLE 200 MG TAB PO SCH ×2 (10:58→22:02)
[2016-07-04] MEDS: POTASSIUM CHLORIDE 20 MEQ CONTROLLED RELEASE TAB PO SCH (10:59)
[2016-07-04] MEDS: predniSONE 5 MG TAB PO SCH (11:00)
[2016-07-04] MEDS: LISINOPRIL 20 MG TAB PO SCH (11:00)
[2016-07-04] MEDS: FUROSEMIDE 40 MG TAB PO SCH (11:00)
--- NOTE | 2016-07-04 12:56 | HHI.PR ---
Subjective Remarks Breathing is better. No other concerns. Doing okay, feeling more tired than usual today. Objective Vitals Vital Signs Date Time Temp Pulse Resp B/P Pulse Ox O2 Delivery O2 Flow Rate FiO2 07/04/16 12:26 97.2 98 20 120/70 93 07/04/16 08:25 96.7 90 20 135/69 98 07/04/16 07:15 Nasal Cannula 2.00 07/04/16 04:00 97.0 74 20 125/80 98 07/04/16 00:00 97.2 91 18 125/79 98 07/03/16 20:00 97.2 91 18 125/67 93 07/03/16 17:17 97.7 80 20 124/70 95 07/03/16 13:40 95.6 78 20 111/59 97 I/O 07/03/16 07/03/16 07/03/16 07/04/16 07/04/16 07/04/16 07:00 15:00 23:00 07:00 15:00 23:00 Intake Total 240 ml Balance 240 ml Intake Oral 240 ml # Voids 4 3 3 # Bowel Movements 2 Result Diagram: 07/01/16 0715 07/03/16 0757 Other Results Item Value Date Time Bedside Blood Glucose 147 mg/dl 07/03/16 0931 Bedside Blood Glucose 192 mg/dl 07/02/16 1631 Objective Remarks GENERAL: This is a well-nourished, well-developed patient, in no apparent distress. CARDIOVASCULAR: Regular rate and rhythm RESPIRATORY: Relatively Clear to auscultation. Breath sounds equal bilaterally. No wheezes, rales, or rhonchi. GASTROINTESTINAL: Abdomen soft, non-tender, nondistended. Normal active bowel sounds NEURO: Alert & Oriented x4 to person, place, time, situation. Moves all ext x4 Procedures Incision and drainage of right hand abscess Bronchoscopy EGD with dilatation A/P Problem List: (1) SVT (supraventricular tachycardia) ICD Code: I47.1 Status: Acute (2) Severe sepsis ICD Code: A41.9 Status: Acute (3) COPD with acute exacerbation ICD Code: J44.1 Status: Acute (4) Sepsis ICD Code: A41.9 Status: Acute (5) Cellulitis of right upper extremity ICD Code: L03.113 Status: Acute (6) Abscess of hand, right ICD Code: L02.511 Status: Acute (7) Olecranon bursitis, right elbow ICD Code: M70.21 Status: Acute Assessment and Plan Severe sepsis due to cellulitis of the right upper extremity/ right olecranon bursitis now resolved. - Previous venous Doppler of the upper extremities with no DVT -US of the right upper extremity with a complex mass overlying the right third finger- s/p I/D of the right hand mass/fluid collection with S/p vancomycin culture positive for MRSA- keep the right hand elevated- continue pain control -ID/hand surgery and ortho following; recommended conservative treatment of olecranon bursitis. Community acquired pneumonia - Stable status post treatment Zosyn and Levaquin. -Repeat chest x-ray showed improvement. - Bronchial washings culture with Aspergillus niger, on Voriconazole- treatment per ID recommend at least 1 month of treatment. Pulmonary nodules. Status post bronchoscopy negative cytology. Repeat CT in 2 months, follow-up with pulmonology as an outpatient. SVT - due to sepsis-on beta rosy status post cardiology consultation. ischemic cardiomyopathy - s/p stent placement 2001, follow-up angiogram 2 weeks ago no intervention needed per patient; continue aspirin and lisinopril - elevated troponin likely due to presenting tachycardia/ sepsis. on asa -echo with EF 35% cautious use of BB hx of COPD -cardiology reconsulted on 06/05, nonsustained VT felt to be secondary to NAN . Information from Dr Vora shows ECHO May 2016 with normal EF and cath from 2014 (Apr per pt) with stable CAD. Elevated trop likely from sepsis Acute on chronic systolic CHF exacerbation - continue Lasix and monitor electrolytes. improving. on oral medication. COPD exacerbation -improving dyspnea on exertion continue steroids and neb treatment -patient failed walk test recommend oxygen which he was on prior. Diabetes mellitus 2 with previous hypoglycemic episode -with no further hypoglycemia. Hyperglycemic secondary to steroids and noncompliance (refusing fingersticks and nightly Levemir because he does not want to be poked). - Adjust Levemir accordingly- accu-check with SSI with overall fair blood sugar control. Patient again counseled regarding compliance anemia of chronic disease - s/p PRBC transfusion with improved H/H- will monitor -stool occult blood positive 1. Continue PPI and consulted GI for endoscopy which showed gastritis and esophageal ring status post dilatations and biopsy. ok with GI to restart aspirin now. Hypertension. - Improving with Lasix and beta rosy status post Cardizem. Dry eyes. Continue with Eye lubricants. -C. difficile colitis. - Improving no diarrhea Continue Lactinex and Flagyl until July 06. Monitor electrolytes DVT prophylaxis, SCD's and subcutaneous heparin Discharge Planning Dispo: PT recommend home with outpatient PT. Recommend oxygen but patient is homeless so cannot get oxygen unless patient has a place. Difficult disposition. Riddhi Velasquez MD Jul 04, 2016 12:56
[2016-07-04] MEDS: ACETAMINOPHEN/HYDROcodone 325 MG/5 MG TAB PO PRN ×2 (13:03→22:03)
[2016-07-04] MEDS: ZOLPIDEM TARTRATE 5 MG TAB PO PRN (22:02)
[2016-07-05] VITALS (9 sets, daily range): BP systolic 103–134; BP diastolic 63–84; PULSE 57–116; RESP 18–20; TEMP 96.8–98; O2SAT 82–97
[2016-07-05] MEDS: HYPROMELLOSE 0.3 % OPTH GEL 10 GM (0.34 FL OZ) TUBE EACH EYE SCH ×4 (04:00→21:55)
[2016-07-05] MEDS: ALPRAZolam 0.25 MG TAB PO PRN (04:04)
[2016-07-05] MEDS: metroNIDAZOLE 500 MG TAB PO SCH ×3 (06:25→21:52)
[2016-07-05] MEDS: INSULIN ASPART SUPPLEMENTAL SCALE SQ SCH ×4 (06:26→21:00)
[2016-07-05] MEDS: METOPROLOL TARTRATE 50 MG TAB PO SCH ×2 (09:00→21:51)
[2016-07-05] MEDS: HEPARIN SODIUM - SQ 10,000 UNITS/ML VIAL SQ SCH ×2 (09:00→21:00)
[2016-07-05] MEDS: LISINOPRIL 20 MG TAB PO SCH (09:00)
[2016-07-05] MEDS: LACTOBACILLUS ACIDOPHILUS TAB PO SCH ×3 (09:04→17:40)
[2016-07-05] MEDS: VORICONAZOLE 200 MG TAB PO SCH ×2 (09:04→21:50)
[2016-07-05] MEDS: PANTOPRAZOLE SOD 20 MG DELAYED RELEASE TAB PO SCH (09:05)
[2016-07-05] MEDS: ASPIRIN 81 MG CHEW TAB CHEW SCH (09:06)
[2016-07-05] MEDS: predniSONE 5 MG TAB PO SCH (09:06)
[2016-07-05] MEDS: FUROSEMIDE 40 MG TAB PO SCH (09:06)
[2016-07-05] MEDS: POTASSIUM PHOSPHATE MONOBASIC 500 MG TAB PO SCH ×2 (09:06→21:51)
[2016-07-05] MEDS: POTASSIUM CHLORIDE 20 MEQ CONTROLLED RELEASE TAB PO SCH (09:06)
[2016-07-05] MEDS: BUDESONIDE-FORMOTEROL 160/4.5 MCG INHALER INH SCH ×2 (09:07→21:49)
[2016-07-05] MEDS: INSULIN DETEMIR 100 UNITS/ML VIAL SQ SCH (09:12)
[2016-07-05] MEDS: ACETAMINOPHEN/HYDROcodone 325 MG/5 MG TAB PO PRN (17:40)
--- NOTE | 2016-07-05 19:16 | HHI.PR ---
Subjective Remarks Patient seen this morning around 11 AM. Denies any pain. Says he feels weak, does not feel like he can go home. No chest pain or shortness of breath. Still on 2 L oxygen. Objective Vital Signs Date Time Temp Pulse Resp B/P Pulse Ox O2 Delivery O2 Flow Rate FiO2 07/05/16 16:00 97.1 76 18 116/78 93 07/05/16 12:07 94 2.00 07/05/16 12:00 96.8 81 20 106/81 82 07/05/16 08:45 Nasal Cannula 2.00 07/05/16 08:00 96.8 76 18 103/63 95 07/05/16 04:00 98.0 57 20 134/80 96 07/05/16 00:00 97.0 93 18 120/84 97 07/04/16 20:00 97.5 84 22 127/62 96 I/O 07/04/16 07/04/16 07/04/16 07/05/16 07/05/16 07/05/16 07:00 15:00 23:00 07:00 15:00 23:00 Intake Total 240 ml 480 ml Balance 240 ml 480 ml Intake Oral 240 ml 480 ml # Voids 3 4 6 4 # Bowel Movements 1 1 Result Diagram: 07/01/16 0715 07/03/16 0757 Objective Remarks GENERAL: Patient lying in bed. Appears comfortable. Alert and oriented 3. SKIN: Warm and dry. HEAD: Normocephalic. EYES: No scleral icterus. No injection or drainage. NECK: Supple, trachea midline. No JVD. CARDIOVASCULAR: Regular rate and rhythm without murmurs, gallops, or rubs. RESPIRATORY: Breath sounds equal bilaterally. No accessory muscle use. GASTROINTESTINAL: Abdomen soft, non-tender, nondistended. MUSCULOSKELETAL: No cyanosis, or edema. BACK: Nontender without obvious deformity. No CVA tenderness. A/P Assessment and Plan Severe sepsis due to cellulitis of the right upper extremity/ right olecranon bursitis now resolved. //Previous venous Doppler of the upper extremities with no DVT -US of the right upper extremity with a complex mass overlying the right third finger- s/p I/D of the right hand mass/fluid collection with S/p vancomycin culture positive for MRSA- keep the right hand elevated- continue pain control -ID/hand surgery and ortho following; recommended conservative treatment of olecranon bursitis. Appreciate assistance. //Community acquired pneumonia - Stable status post treatment Zosyn and Levaquin. -Repeat chest x-ray showed improvement. - Bronchial washings culture with Aspergillus niger, on Voriconazole since 06/27 - treatment per ID recommend at least 1 month of treatment. -Voriconazole Stop date 07/27. - Appreciate ID assistance. //Pulmonary nodules. Status post bronchoscopy negative cytology. Repeat CT in 2 months, follow-up with pulmonology as an outpatient. //SVT - due to sepsis-on beta rosy status post cardiology consultation. //ischemic cardiomyopathy - s/p stent placement 2001, follow-up angiogram 2 weeks ago no intervention needed per patient; continue aspirin and lisinopril - elevated troponin likely due to presenting tachycardia/ sepsis. on asa -echo with EF 35% cautious use of BB hx of COPD -cardiology reconsulted on 06/05, nonsustained VT felt to be secondary to NAN . Information from Dr Vora shows ECHO May 2016 with normal EF and cath from 2014 (Apr per pt) with stable CAD. Elevated trop likely from sepsis -Continue on aspirin. Continue to monitor. //Acute on chronic systolic CHF exacerbation - continue Lasix and monitor electrolytes. improving. on oral medication. //COPD exacerbation -improving dyspnea on exertion continue steroids and neb treatment -patient failed walk test recommend oxygen which he was on prior. //Diabetes mellitus 2 with previous hypoglycemic episode -with no further hypoglycemia. Hyperglycemic secondary to steroids and noncompliance (refusing fingersticks and nightly Levemir because he does not want to be poked). - Adjust Levemir accordingly- accu-check with SSI with overall fair blood sugar control. Patient again counseled regarding compliance //anemia of chronic disease - s/p PRBC transfusion with improved H/H- will monitor -stool occult blood positive 1. Continue PPI and consulted GI for endoscopy which showed gastritis and esophageal ring status post dilatations and biopsy. ok with GI for aspirin Hemoglobin stable. Continue to monitor. //Hypertension. - Improving with Lasix and beta rosy status post Cardizem. //Dry eyes. Continue with Eye lubricants. //C. difficile colitis. - Improving. no diarrhea - Continue Lactinex and Flagyl until July 06. - Monitor electrolytes //DVT prophylaxis, SCD's and subcutaneous heparin Discharge Planning - PT recommend home with outpatient PT. -Recommend oxygen but patient is homeless so cannot get oxygen unless patient has a place to live. -need pulmonary follow-up for lung nodules. -Difficult disposition. Appreciate case management assistance. Abdulkadir Castro MD Jul 05, 2016 19:16
[2016-07-05] MEDS: ZOLPIDEM TARTRATE 5 MG TAB PO PRN (21:50)
[2016-07-06] VITALS (9 sets, daily range): BP systolic 118–143; BP diastolic 64–71; PULSE 86–106; RESP 18–20; TEMP 97.3–98.6; O2SAT 91–98
[2016-07-06] MEDS: HYPROMELLOSE 0.3 % OPTH GEL 10 GM (0.34 FL OZ) TUBE EACH EYE SCH ×4 (04:00→22:17)
[2016-07-06] MEDS: ACETAMINOPHEN/HYDROcodone 325 MG/5 MG TAB PO PRN ×3 (05:01→22:14)
[2016-07-06] MEDS: metroNIDAZOLE 500 MG TAB PO SCH (05:01)
[2016-07-06] MEDS: INSULIN ASPART SUPPLEMENTAL SCALE SQ SCH ×4 (05:19→21:00)
[2016-07-06] MEDS: HEPARIN SODIUM - SQ 10,000 UNITS/ML VIAL SQ SCH ×2 (09:00→21:00)
[2016-07-06] MEDS: METOPROLOL TARTRATE 50 MG TAB PO SCH ×2 (09:00→22:15)
[2016-07-06] MEDS: ASPIRIN 81 MG CHEW TAB CHEW SCH (09:26)
[2016-07-06] MEDS: VORICONAZOLE 200 MG TAB PO SCH ×2 (09:26→22:15)
[2016-07-06] MEDS: LISINOPRIL 20 MG TAB PO SCH (09:26)
[2016-07-06] MEDS: POTASSIUM CHLORIDE 20 MEQ CONTROLLED RELEASE TAB PO SCH (09:27)
[2016-07-06] MEDS: POTASSIUM PHOSPHATE MONOBASIC 500 MG TAB PO SCH ×2 (09:28→22:15)
[2016-07-06] MEDS: FUROSEMIDE 40 MG TAB PO SCH (09:28)
[2016-07-06] MEDS: LACTOBACILLUS ACIDOPHILUS TAB PO SCH ×3 (09:28→17:53)
[2016-07-06] MEDS: predniSONE 5 MG TAB PO SCH (09:29)
[2016-07-06] MEDS: BUDESONIDE-FORMOTEROL 160/4.5 MCG INHALER INH SCH ×2 (09:29→22:16)
[2016-07-06] MEDS: INSULIN DETEMIR 100 UNITS/ML VIAL SQ SCH (09:29)
[2016-07-06] MEDS: PANTOPRAZOLE SOD 20 MG DELAYED RELEASE TAB PO SCH (09:29)
[2016-07-06 10:07] LABS: AUTOMATED NEUTROPHIL # 3.6 TH/MM3 (1.8-7.7); BASOPHIL % 0.2 % (0.0-2.0); EOSINOPHIL % 0.3 % (0.0-4.0); HEMATOCRIT 29.6 % (39.0-51.0); LYMPHOCYTE # 2.7 TH/MM3 (1.0-4.8); MEAN CELL VOLUME 87.3 FL (80.0-100.0); MEAN CORPUSCULAR HGB CONC 32.1 % (32.0-36.0); MONO % 5.7 % (0.0-8.0); NEUT % 53.8 % (16.0-70.0); PLATELET COUNT 170 TH/MM3 (150-450); RED BLOOD COUNT 3.39 MIL/MM3 (4.50-5.90); RED CELL DISTRIBUTION WIDTH 24.7 % (11.6-17.2); WHITE BLOOD COUNT 6.6 TH/MM3 (4.0-11.0)
[2016-07-06 10:14] LABS: HEMO FLAGS AUTO DIFF
[2016-07-06 10:32] LABS: BICARBONATE 30.1 MEQ/L (21.0-32.0); POTASSIUM 4.4 MEQ/L (3.5-5.1)
[2016-07-06 10:42] LABS: KERATOCYTES OCC (NORMAL); OVALOCYTES 1+ (NORMAL); PLATELET ESTIMATE SMEAR NORMAL (NORMAL); PLATELET MORPHOLOGY NORMAL (NORMAL)
[2016-07-06 10:43] LABS: SCAN/DIFF AUTO DIFF CONFIRMED
[2016-07-06] MEDS: ZOLPIDEM TARTRATE 5 MG TAB PO PRN (22:16)
[2016-07-06] MEDS: SODIUM CHLORIDE 0.9% FLUSH 5 ML FLUSH IVF PRN (22:16)
--- NOTE | 2016-07-06 23:27 | HHI.PR ---
Subjective Remarks patient seen this morning. Denies any chest pain. He says he has shortness of breath with walking which is stable. Eating well. Denies any nausea or vomiting. Objective Vital Signs Date Time Temp Pulse Resp B/P Pulse Ox O2 Delivery O2 Flow Rate FiO2 07/06/16 21:13 97.8 97 20 118/67 91 07/06/16 20:03 95 Nasal Cannula 2.00 07/06/16 16:00 98.6 96 18 136/66 98 07/06/16 12:00 98.6 86 18 126/71 92 07/06/16 10:08 94 Nasal Cannula 2.00 07/06/16 09:37 Nasal Cannula 2.00 07/06/16 08:00 98.1 100 20 124/64 93 07/06/16 06:47 16 07/06/16 04:07 97.5 89 18 137/67 98 07/06/16 00:21 97.3 106 20 143/69 93 I/O 07/05/16 07/05/16 07/05/16 07/06/16 07/06/16 07/06/16 07:00 15:00 23:00 07:00 15:00 23:00 Intake Total 480 ml 480 ml 240 ml 240 ml Balance 480 ml 480 ml 240 ml 240 ml Intake Oral 480 ml 480 ml 240 ml 240 ml # Voids 6 4 1 # Bowel Movements 1 0 Result Diagram: 07/06/1618 07/06/1618 Objective Remarks GENERAL: sitting up on edge of bed . Appears comfortable. Alert and oriented 3. SKIN: Warm and dry. HEAD: Normocephalic. EYES: No scleral icterus. No injection or drainage. NECK: Supple, trachea midline. No JVD. CARDIOVASCULAR: Regular rate and rhythm without murmurs, gallops, or rubs. RESPIRATORY: Breath sounds equal bilaterally. No accessory muscle use. GASTROINTESTINAL: Abdomen soft, non-tender, nondistended. MUSCULOSKELETAL: No cyanosis, or edema. BACK: Nontender without obvious deformity. No CVA tenderness. A/P Assessment and Plan Severe sepsis due to cellulitis of the right upper extremity/ right olecranon bursitis now resolved. //Previous venous Doppler of the upper extremities with no DVT -US of the right upper extremity with a complex mass overlying the right third finger- s/p I/D of the right hand mass/fluid collection with S/p vancomycin culture positive for MRSA- keep the right hand elevated- continue pain control -ID/hand surgery and ortho following; recommended conservative treatment of olecranon bursitis. Appreciate assistance. //Community acquired pneumonia - Stable status post treatment Zosyn and Levaquin. -Repeat chest x-ray showed improvement. - Bronchial washings culture with Aspergillus niger, on Voriconazole since 06/27 - treatment per ID recommend at least 1 month of treatment. -Voriconazole Stop date 07/27. - Appreciate ID assistance. //Pulmonary nodules. Status post bronchoscopy negative cytology. Repeat CT in 2 months, follow-up with pulmonology as an outpatient. //SVT - due to sepsis-on beta rosy status post cardiology consultation. //ischemic cardiomyopathy - s/p stent placement 2001, follow-up angiogram 2 weeks ago no intervention needed per patient; continue aspirin and lisinopril - elevated troponin likely due to presenting tachycardia/ sepsis. on asa -echo with EF 35% cautious use of BB hx of COPD -cardiology reconsulted on 06/05, nonsustained VT felt to be secondary to NAN . Information from Dr Vora shows ECHO May 2016 with normal EF and cath from 2014 (Apr per pt) with stable CAD. Elevated trop likely from sepsis -Continue on aspirin. Continue to monitor. //Acute on chronic systolic CHF exacerbation - continue Lasix and monitor electrolytes. improving. on oral medication. //COPD exacerbation -improving dyspnea on exertion continue steroids and neb treatment -patient failed walk test recommend oxygen which he was on prior. //Diabetes mellitus 2 with previous hypoglycemic episode -with no further hypoglycemia. Hyperglycemic secondary to steroids and noncompliance (refusing fingersticks and nightly Levemir because he does not want to be poked). - Adjust Levemir accordingly- accu-check with SSI with overall fair blood sugar control. Patient again counseled regarding compliance //anemia of chronic disease - s/p PRBC transfusion with improved H/H- will monitor -stool occult blood positive 1. Continue PPI and consulted GI for endoscopy which showed gastritis and esophageal ring status post dilatations and biopsy. ok with GI for aspirin Hemoglobin stable. Continue to monitor. //Hypertension. - Improving with Lasix and beta rosy status post Cardizem. //Dry eyes. Continue with Eye lubricants. //C. difficile colitis. - Improving. no diarrhea -Completed Flagyl July 06. - Monitor electrolytes //DVT prophylaxis, SCD's and subcutaneous heparin Discharge Planning - PT recommend home with outpatient PT. -patient will need for consult by mouth until 07/27. -Recommend oxygen but patient is homeless so cannot get oxygen unless patient has a place to live. -need pulmonary follow-up for lung nodules. -Difficult disposition. Appreciate case management assistance. Abdulkadir Castro MD Jul 06, 2016 23:26
[2016-07-07] VITALS (7 sets, daily range): BP systolic 107–127; BP diastolic 62–76; PULSE 84–94; RESP 16–20; TEMP 96.6–98.4; O2SAT 88–98
[2016-07-07] MEDS: ALPRAZolam 0.25 MG TAB PO PRN (03:57)
[2016-07-07] MEDS: HYPROMELLOSE 0.3 % OPTH GEL 10 GM (0.34 FL OZ) TUBE EACH EYE SCH ×4 (03:59→20:44)
[2016-07-07] MEDS: INSULIN ASPART SUPPLEMENTAL SCALE SQ SCH ×4 (04:00→20:44)
[2016-07-07] MEDS: HEPARIN SODIUM - SQ 10,000 UNITS/ML VIAL SQ SCH ×2 (09:00→20:46)
[2016-07-07] MEDS: METOPROLOL TARTRATE 50 MG TAB PO SCH ×2 (09:21→20:52)
[2016-07-07] MEDS: ASPIRIN 81 MG CHEW TAB CHEW SCH (09:21)
[2016-07-07] MEDS: LACTOBACILLUS ACIDOPHILUS TAB PO SCH ×3 (09:21→18:14)
[2016-07-07] MEDS: VORICONAZOLE 200 MG TAB PO SCH ×2 (09:21→20:42)
[2016-07-07] MEDS: FUROSEMIDE 40 MG TAB PO SCH (09:21)
[2016-07-07] MEDS: POTASSIUM CHLORIDE 20 MEQ CONTROLLED RELEASE TAB PO SCH (09:22)
[2016-07-07] MEDS: LISINOPRIL 20 MG TAB PO SCH (09:22)
[2016-07-07] MEDS: PANTOPRAZOLE SOD 20 MG DELAYED RELEASE TAB PO SCH (09:22)
[2016-07-07] MEDS: POTASSIUM PHOSPHATE MONOBASIC 500 MG TAB PO SCH ×2 (09:22→20:43)
[2016-07-07] MEDS: predniSONE 5 MG TAB PO SCH (09:22)
[2016-07-07] MEDS: BUDESONIDE-FORMOTEROL 160/4.5 MCG INHALER INH SCH ×2 (09:23→20:41)
[2016-07-07] MEDS: INSULIN DETEMIR 100 UNITS/ML VIAL SQ SCH (09:23)
--- NOTE | 2016-07-07 13:52 | HHI.PR ---
Subjective Remarks pt says he feels okay. still sob with walking as far as couch or restroom. no cp. Objective Vital Signs Date Time Temp Pulse Resp B/P Pulse Ox O2 Delivery O2 Flow Rate FiO2 07/07/16 12:00 97.9 84 18 112/66 98 07/07/16 08:00 97.1 88 18 118/68 97 07/07/16 08:00 Nasal Cannula 2.00 21 07/07/16 05:20 97.7 84 20 124/62 95 07/07/16 00:08 97.1 91 19 117/64 93 07/06/16 23:30 91 07/06/16 23:28 18 07/06/16 21:13 97.8 97 20 118/67 91 07/06/16 20:03 95 Nasal Cannula 2.00 07/06/16 16:00 98.6 96 18 136/66 98 I/O 07/06/16 07/06/16 07/06/16 07/07/16 07/07/16 07/07/16 07:00 15:00 23:00 07:00 15:00 23:00 Intake Total 240 ml 240 ml Balance 240 ml 240 ml Intake Oral 240 ml 240 ml # Voids 1 2 # Bowel Movements 0 Result Diagram: 07/06/1618 07/06/16 0918 Objective Remarks GENERAL: sitting up in bed Appears comfortable. Alert and oriented 3. no change on exam SKIN: Warm and dry. HEAD: Normocephalic. EYES: No scleral icterus. No injection or drainage. NECK: Supple, trachea midline. No JVD. CARDIOVASCULAR: Regular rate and rhythm without murmurs, gallops, or rubs. RESPIRATORY: Breath sounds equal bilaterally. No accessory muscle use. GASTROINTESTINAL: Abdomen soft, non-tender, nondistended. MUSCULOSKELETAL: No cyanosis, or edema. BACK: Nontender without obvious deformity. No CVA tenderness. A/P Assessment and Plan patient seen and examined on 07/07. slow improvement. cont voriconazole. transfer to [place] Severe sepsis due to cellulitis of the right upper extremity/ right olecranon bursitis now resolved. //Previous venous Doppler of the upper extremities with no DVT -US of the right upper extremity with a complex mass overlying the right third finger- s/p I/D of the right hand mass/fluid collection with S/p vancomycin culture positive for MRSA- keep the right hand elevated- continue pain control -ID/hand surgery and ortho following; recommended conservative treatment of olecranon bursitis. Appreciate assistance. //Community acquired pneumonia - Stable status post treatment Zosyn and Levaquin. -Repeat chest x-ray showed improvement. - Bronchial washings culture with Aspergillus niger, on Voriconazole since 06/27 - treatment per ID recommend at least 1 month of treatment. -Voriconazole Stop date 07/27. - Appreciate ID assistance. //Pulmonary nodules. Status post bronchoscopy negative cytology. Repeat CT in 2 months, follow-up with pulmonology as an outpatient. //SVT - due to sepsis-on beta rosy status post cardiology consultation. //ischemic cardiomyopathy - s/p stent placement 2001, follow-up angiogram 2 weeks ago no intervention needed per patient; continue aspirin and lisinopril - elevated troponin likely due to presenting tachycardia/ sepsis. on asa -echo with EF 35% cautious use of BB hx of COPD -cardiology reconsulted on 06/05, nonsustained VT felt to be secondary to NAN . Information from Dr Vora shows ECHO May 2016 with normal EF and cath from 2014 (Apr per pt) with stable CAD. Elevated trop likely from sepsis -Continue on aspirin. Continue to monitor. //Acute on chronic systolic CHF exacerbation - continue Lasix and monitor electrolytes. improving. on oral medication. //COPD exacerbation -improving dyspnea on exertion continue steroids and neb treatment -patient failed walk test recommend oxygen which he was on prior. //Diabetes mellitus 2 with previous hypoglycemic episode -with no further hypoglycemia. Hyperglycemic secondary to steroids and noncompliance (refusing fingersticks and nightly Levemir because he does not want to be poked). - Adjust Levemir accordingly- accu-check with SSI with overall fair blood sugar control. Patient again counseled regarding compliance //anemia of chronic disease - s/p PRBC transfusion with improved H/H- will monitor -stool occult blood positive 1. Continue PPI and consulted GI for endoscopy which showed gastritis and esophageal ring status post dilatations and biopsy. ok with GI for aspirin Hemoglobin stable. Continue to monitor. //Hypertension. - Improving with Lasix and beta rosy status post Cardizem. //Dry eyes. Continue with Eye lubricants. //C. difficile colitis. - Improving. no diarrhea -Completed Flagyl July 06. - Monitor electrolytes //DVT prophylaxis, SCD's and subcutaneous heparin Discharge Planning - PT recommend home with outpatient PT. -patient will need voriconazole by mouth until 07/27. -Recommend oxygen but patient is homeless so cannot get oxygen unless patient has a place to live. -need pulmonary follow-up for lung nodules. -Difficult disposition. Appreciate case management assistance. Abdulkadir Castro MD Jul 07, 2016 13:52
[2016-07-07] MEDS: ACETAMINOPHEN/HYDROcodone 325 MG/5 MG TAB PO PRN (16:42)
[2016-07-07] MEDS: ZOLPIDEM TARTRATE 5 MG TAB PO PRN (22:18)
[2016-07-08] MEDS: ALPRAZolam 0.25 MG TAB PO PRN ×2 (01:06→13:48)
[2016-07-08] MEDS: HYPROMELLOSE 0.3 % OPTH GEL 10 GM (0.34 FL OZ) TUBE EACH EYE SCH ×4 (04:00→20:33)
[2016-07-08] MEDS: INSULIN ASPART SUPPLEMENTAL SCALE SQ SCH ×4 (06:12→20:36)
[2016-07-08 08:00] VITALS: BP 125/74; PULSE 102; RESP 16; TEMP 97.1; O2SAT 94
[2016-07-08] MEDS: INSULIN DETEMIR 100 UNITS/ML VIAL SQ SCH (09:00)
[2016-07-08] MEDS: BUDESONIDE-FORMOTEROL 160/4.5 MCG INHALER INH SCH ×2 (09:00→20:34)
[2016-07-08] MEDS: VORICONAZOLE 200 MG TAB PO SCH ×2 (10:24→20:57)
[2016-07-08] MEDS: POTASSIUM PHOSPHATE MONOBASIC 500 MG TAB PO SCH ×2 (10:24→20:31)
[2016-07-08] MEDS: FUROSEMIDE 40 MG TAB PO SCH (10:26)
[2016-07-08] MEDS: HEPARIN SODIUM - SQ 10,000 UNITS/ML VIAL SQ SCH ×2 (10:26→20:35)
[2016-07-08] MEDS: POTASSIUM CHLORIDE 20 MEQ CONTROLLED RELEASE TAB PO SCH (10:26)
[2016-07-08] MEDS: METOPROLOL TARTRATE 50 MG TAB PO SCH ×2 (10:26→20:32)
[2016-07-08] MEDS: PANTOPRAZOLE SOD 20 MG DELAYED RELEASE TAB PO SCH (10:26)
[2016-07-08] MEDS: LISINOPRIL 20 MG TAB PO SCH (10:26)
[2016-07-08] MEDS: predniSONE 5 MG TAB PO SCH (10:27)
[2016-07-08] MEDS: LACTOBACILLUS ACIDOPHILUS TAB PO SCH ×3 (10:27→17:41)
[2016-07-08] MEDS: ASPIRIN 81 MG CHEW TAB CHEW SCH (10:27)
--- NOTE | 2016-07-08 10:35 | HHI.PR ---
Subjective Remarks Mr. Garcia was transferred from [facility] in [place] to [facility] last night. Patient presented to the ED on 06/05/16 with arm swelling and shortness of breath. Patient also had superventricular tachycardia. He was found to have sepsis from bilateral upper extremity cellulitis; also had R olecranon bursitis. Cardiology evaluated the patient and indicated the SVT was due to sepsis. He was evaluated by infectious disease and additionally had an abscess to his right hand which was incised and drained by hand surgery. The hand wound grew MRSA. 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 Patient had anemia and heme-positive stools, but was evaluated by GI and had EGD performed which showed gastropathy. Today patient refused his insulin. He adamantly denies being a diabetic although Levemir is listed on the med rec. He states elevated BGLs were due to being on steroids. He additionally refuses the heart healthy diabetic diet. He states he does not have coronary artery disease but then tells me he has 4 coronary artery stents. Objective Vitals Vital Signs Date Time Temp Pulse Resp B/P Pulse Ox O2 Delivery O2 Flow Rate FiO2 07/08/16 08:00 97.1 102 16 125/74 94 07/08/16 08:00 Room Air 21 07/07/16 20:00 96.6 94 20 127/76 97 07/07/16 19:02 88 21 07/07/16 19:00 97 Room Air 21 07/07/16 17:42 18 07/07/16 15:30 98.4 88 16 107/69 95 07/07/16 12:00 97.9 84 18 112/66 98 I/O 07/07/16 07/07/16 07/07/16 07/08/16 07/08/16 07/08/16 07:00 15:00 23:00 07:00 15:00 23:00 Intake Total 480 ml 400 ml 580 ml Output Total 600 ml Balance -120 ml 400 ml 580 ml Intake Oral 480 ml 400 ml 580 ml Output Urine Total 600 ml # Voids 2 4 3 # Bowel Movements 1 0 Result Diagram: 07/06/1691707/06/1618 Objective Remarks GENERAL: Elderly well-nourished, well-developed patient in no apparent distress. SKIN: Warm and dry. There is a small healed wound to the dorsal right 3rd MCP joint; pink on the skin edges, but no surrounding erythema; no drainage. HEAD: Atraumatic. Normocephalic. CARDIOVASCULAR: Regular rate and rhythm. RESPIRATORY: No accessory muscle use. Clear to auscultation, but significantly diminished. Breath sounds equal bilaterally. GASTROINTESTINAL: Abdomen soft, non-tender, nondistended. NEUROLOGICAL: Awake and alert. Oriented to place, city, month, year, and president. PSYCHIATRIC: Appropriate mood and affect; insight and judgment normal. Procedures Incision and drainage of right hand abscess Bronchoscopy EGD with dilatation Urinary Catheter: No Vascular Central Line Catheter: No A/P Problem List: (1) SVT (supraventricular tachycardia) ICD Code: I47.1 Status: Resolved (2) Severe sepsis ICD Code: A41.9 Status: Resolved (3) COPD with acute exacerbation ICD Code: J44.1 Status: Acute (4) Sepsis ICD Code: A41.9 Status: Resolved (5) Cellulitis of right upper extremity ICD Code: L03.113 Status: Resolved (6) Abscess of hand, right ICD Code: L02.511 Status: Resolved (7) Olecranon bursitis, right elbow ICD Code: M70.21 Status: Resolved Assessment and Plan Severe sepsis due to cellulitis of the right upper extremity/right olecranon bursitis now resolved. -Previous venous Doppler of the upper extremities with no DVT -US of the right upper extremity with a complex mass overlying the right third finger. S/p I/D of the right hand MRSA abscess and treatment with Vancomycin. -Evaluated by ortho and hand surgery; cleared by hand surgery. Community acquired pneumonia -Status post treatment Zosyn and Levaquin. -Bronchial washings culture with Aspergillus niger, on Voriconazole since 06/27- treatment per ID recommend at least 1 month of treatment. Voriconazole Stop date 07/27. -Call ID if acute issues develop. ID discussed with Dr. Pinedo about need for outpt ID follow up. COPD exacerbation: still with dyspnea on exertion -Continue steroids and neb treatment. Pulmonology following. -Patient failed walk test recommended oxygen which he was on prior. Pulmonary nodules -Status post bronchoscopy; negative cytology. Repeat CT in 2 months, follow-up with pulmonology as an outpatient. SVT: due to sepsis; s/p Cardizem. -S/p cardiology consultation. -Continue Beta rosy Ischemic cardiomyopathy -S/p stent placement 2001, follow-up angiogram no intervention needed per patient. -Elevated troponin likely due to presenting tachycardia/sepsis. -Echo with EF 35% cautious use of BB hx of COPD -Cardiology reconsulted on 06/05, nonsustained VT felt to be secondary to NAN . Information from Dr Vora shows ECHO May 2016 with normal EF and cath from 2014 (Apr per pt) with stable CAD. Elevated trop likely from sepsis -Continue on aspirin. Continue to monitor. -Continue Lisinopril -Refuses heart healthy diet Acute on chronic systolic CHF exacerbation -Continue Lasix and monitor electrolytes. Hypertension: Controlled. -Continue lisinopril and metoprolol Diabetes mellitus 2 with previous hypoglycemic episode -No further hypoglycemia. Hyperglycemia secondary to steroids and noncompliance. -Patient refuses all long-acting insulin and also refuses blood glucose checks aside from once daily and SSI at that time if needed. He was extensively counseled on need for insulin if BGL's are elevated as he could be putting himself at risk of DKA if not appropriately treated. Patient was informed of symptoms of DKA and that it can lead to coma or ; he understands and is cognitively capable of refusing. He adamantly denies having diabetes. Vikki SHELTON present for conversation regarding this. -Hemoglobin A1c ordered as none was done prior. -Refuses diabetic diet. Anemia of chronic disease -S/p pRBC transfusion with improved H/H. Hemoglobin stable at 9.5. -Stool occult blood positive 1. GI performed endoscopy which showed gastritis and esophageal ring status post dilatations and biopsy. Ok with GI for aspirin. Refused colonoscopy. -Continue to monitor. Dry eyes. Continue with Eye lubricants. C. difficile colitis: -Completed Flagyl 07/06/16. -Monitor electrolytes DVT prophylaxis, SCD's and subcutaneous heparin Discharge Planning PT recommends home with outpatient PT/pulmonary rehab. Continue voriconazole by mouth until 07/27. Patient is homeless so cannot get oxygen unless patient has a place to live. Needs pulmonary follow-up for lung nodules. Case management following. Zoë Graham Jul 08, 2016 10:35 Dr. Pinedo PT evaluation and ambulate. 2. Cont Nebs bid, duoneb. 3. O2 at 3 L. 4. Continue lasix 40 mg Po daily. 5. Prednisone 5 mg daily 6. Voriconazole PO per Dr Velez 7. To rehab soon Zoë Graham Jul 08, 2016 10:35 Zoë Graham Jul 08, 2016 10:35
[2016-07-08] MEDS: ACETAMINOPHEN/HYDROcodone 325 MG/5 MG TAB PO PRN ×2 (13:48→22:09)
[2016-07-08 19:24] VITALS: O2SAT 94
[2016-07-08 20:00] VITALS: BP 128/69; PULSE 91; RESP 18; TEMP 97.8; O2SAT 94
[2016-07-08] MEDS: ZOLPIDEM TARTRATE 5 MG TAB PO PRN (22:10)
[2016-07-09] MEDS: ALPRAZolam 0.25 MG TAB PO PRN (02:54)
[2016-07-09] MEDS: HYPROMELLOSE 0.3 % OPTH GEL 10 GM (0.34 FL OZ) TUBE EACH EYE SCH ×4 (04:37→21:36)
[2016-07-09] MEDS: INSULIN ASPART SUPPLEMENTAL SCALE SQ SCH ×2 (06:22→10:59)
[2016-07-09 08:00] VITALS: BP 136/72; PULSE 84; RESP 18; TEMP 97.9; O2SAT 94; O2SAT 97
[2016-07-09] MEDS: HEPARIN SODIUM - SQ 10,000 UNITS/ML VIAL SQ SCH ×2 (09:00→21:00)
[2016-07-09] MEDS: VORICONAZOLE 200 MG TAB PO SCH ×2 (09:22→21:35)
[2016-07-09] MEDS: POTASSIUM CHLORIDE 20 MEQ CONTROLLED RELEASE TAB PO SCH (09:22)
[2016-07-09] MEDS: LACTOBACILLUS ACIDOPHILUS TAB PO SCH ×3 (09:22→17:25)
[2016-07-09] MEDS: FUROSEMIDE 40 MG TAB PO SCH (09:22)
[2016-07-09] MEDS: POTASSIUM PHOSPHATE MONOBASIC 500 MG TAB PO SCH ×2 (09:22→21:35)
[2016-07-09] MEDS: METOPROLOL TARTRATE 50 MG TAB PO SCH ×2 (09:22→21:35)
[2016-07-09] MEDS: ASPIRIN 81 MG CHEW TAB CHEW SCH (09:22)
[2016-07-09] MEDS: PANTOPRAZOLE SOD 20 MG DELAYED RELEASE TAB PO SCH (09:22)
[2016-07-09] MEDS: predniSONE 5 MG TAB PO SCH (09:22)
[2016-07-09] MEDS: LISINOPRIL 20 MG TAB PO SCH (09:22)
[2016-07-09] MEDS: BUDESONIDE-FORMOTEROL 160/4.5 MCG INHALER INH SCH ×2 (09:25→21:36)
[2016-07-09] MEDS: ACETAMINOPHEN/HYDROcodone 325 MG/5 MG TAB PO PRN ×2 (09:34→17:28)
--- NOTE | 2016-07-09 10:30 | HHI.PR ---
Subjective Remarks No acute complaints. No change in clinical status. Patient denies any shortness of breath. Objective Vitals Vital Signs Date Time Temp Pulse Resp B/P Pulse Ox O2 Delivery O2 Flow Rate FiO2 07/09/16 08:00 97.9 84 18 136/72 97 07/09/16 07:00 Room Air 21 07/08/16 23:09 16 07/08/16 20:00 97.8 91 18 128/69 94 07/08/16 19:24 94 Nasal Cannula 2.00 07/08/16 19:00 Nasal Cannula 2.00 I/O 07/08/16 07/08/16 07/08/16 07/09/16 07/09/16 07/09/16 07:00 15:00 23:00 07:00 15:00 23:00 Intake Total 580 ml 280 ml 890 ml 680 ml Output Total 500 ml Balance 580 ml 280 ml 890 ml 180 ml Intake Oral 580 ml 280 ml 890 ml 680 ml Output Urine Total 500 ml # Voids 3 # Bowel Movements 0 0 Result Diagram: 07/06/1691707/06/1618 Objective Remarks GENERAL: Elderly well-nourished, well-developed patient in no apparent distress lying supine. CARDIOVASCULAR: Regular rate and rhythm. RESPIRATORY: No accessory muscle use. Clear to auscultation bilaterally, but diminished. Lying supine with O2 via NC without issue. GASTROINTESTINAL: Abdomen soft, non-tender, nondistended. MUSCULOSKELETAL: No lower extremity edema. NEUROLOGICAL: Awake and alert. PSYCHIATRIC: Appropriate mood and affect; insight and judgment normal. Procedures Incision and drainage of right hand abscess Bronchoscopy EGD with dilatation Urinary Catheter: No Vascular Central Line Catheter: No A/P Problem List: (1) SVT (supraventricular tachycardia) ICD Code: I47.1 Status: Resolved (2) Severe sepsis ICD Code: A41.9 Status: Resolved (3) COPD with acute exacerbation ICD Code: J44.1 Status: Acute (4) Sepsis ICD Code: A41.9 Status: Resolved (5) Cellulitis of right upper extremity ICD Code: L03.113 Status: Resolved (6) Abscess of hand, right ICD Code: L02.511 Status: Resolved (7) Olecranon bursitis, right elbow ICD Code: M70.21 Status: Resolved Assessment and Plan Severe sepsis due to cellulitis of the right upper extremity/right olecranon bursitis now resolved. -Previous venous Doppler of the upper extremities with no DVT -US of the right upper extremity with a complex mass overlying the right third finger. S/p I/D of the right hand MRSA abscess and treatment with Vancomycin. -Evaluated by ortho and hand surgery; cleared by hand surgery. Community acquired pneumonia -Status post treatment with Zosyn and Levaquin. -Bronchial washings culture with Aspergillus niger, on Voriconazole since 06/27- treatment per ID recommend at least 1 month of treatment. Voriconazole Stop date 07/27. -Call ID if acute issues develop. ID discussed with Dr. Jhaveri about need for outpt ID follow up. COPD exacerbation: still with dyspnea on exertion -Continue steroids and neb treatment. Pulmonology following. -Patient failed walk test recommended oxygen which he was on prior. Continue O2 via NC. Pulmonary nodules -Status post bronchoscopy; negative cytology. Repeat CT in 2 months, follow-up with pulmonology as an outpatient. SVT: due to sepsis; s/p Cardizem. -S/p cardiology consultation. -Continue Beta rosy Ischemic cardiomyopathy -S/p stent placement 2001, follow-up angiogram no intervention needed per patient. -Elevated troponin likely due to presenting tachycardia/sepsis. -Echo with EF 35% cautious use of BB hx of COPD -Cardiology reconsulted on 06/05, nonsustained VT felt to be secondary to NNA . Information from Dr Vora shows ECHO May 2016 with normal EF and cath from 2014 (Apr per pt) with stable CAD. Elevated trop likely from sepsis -Continue on aspirin. Continue to monitor. -Continue Lisinopril -Refuses heart healthy diet Acute on chronic systolic CHF exacerbation -Continue Lasix and monitor electrolytes. Hypertension: Controlled. -Continue lisinopril and metoprolol Diabetes mellitus 2 with previous hypoglycemic episode -No further hypoglycemia. Hyperglycemia secondary to steroids and noncompliance. BGL good this morning at 107. -Patient refuses all long-acting insulin and also refuses blood glucose checks aside from once daily and SSI at that time if needed. He was extensively counseled on need for insulin if BGL's are elevated as he could be putting himself at risk of DKA if not appropriately treated. Patient was informed of symptoms of DKA and that it can lead to coma or ; he understands and is cognitively capable of refusing. He adamantly denies having diabetes. Vikki SHELTON present for conversation regarding this. -Hemoglobin A1c pending. -Refuses diabetic diet. Anemia of chronic disease -S/p pRBC transfusion with improved H/H. Hemoglobin stable at 9.5. -Stool occult blood positive 1. GI performed endoscopy which showed gastritis and esophageal ring status post dilatations and biopsy. Ok with GI for aspirin. Refused colonoscopy. -Continue to monitor. Dry eyes. Continue with Eye lubricants. C. difficile colitis: -Completed Flagyl 07/06/16. -Monitor electrolytes DVT prophylaxis, SCD's and subcutaneous heparin Discharge Planning PT recommends home with outpatient PT/pulmonary rehab. Continue voriconazole by mouth until 07/27. Patient is homeless so cannot get oxygen unless patient has a place to live. Needs pulmonary follow-up for lung nodules. Case management following. Zoë Graham Jul 09, 2016 10:30
[2016-07-09 16:16] LABS: HEMOGLOBIN A1a 1.4 %; HEMOGLOBIN A1b 2.3 %; HEMOGLOBIN Ao 81.8 %; HEMOGLOBIN LA1C 2.6 %; HEMOGLOBIN P3 6.2 %
--- NOTE | 2016-07-09 16:50 | HHI.PR ---
Subjective Remarks No complaints ,and still On O2 at 2 L. Ambulating in room. Leg edema is down. Objective Vital Signs Date Time Temp Pulse Resp B/P Pulse Ox O2 Delivery O2 Flow Rate FiO2 07/09/16 08:00 97.9 84 18 136/72 97 07/09/16 07:00 Room Air 21 07/08/16 23:09 16 07/08/16 20:00 97.8 91 18 128/69 94 07/08/16 19:24 94 Nasal Cannula 2.00 07/08/16 19:00 Nasal Cannula 2.00 I/O 07/08/16 07/08/16 07/08/16 07/09/16 07/09/16 07/09/16 07:00 15:00 23:00 07:00 15:00 23:00 Intake Total 580 ml 280 ml 890 ml 680 ml 780 ml Output Total 500 ml 3 ml Balance 580 ml 280 ml 890 ml 180 ml 777 ml Intake Oral 580 ml 280 ml 890 ml 680 ml 780 ml Output Urine Total 500 ml 3 ml # Voids 3 2 # Bowel Movements 0 0 0 Result Diagram: 07/06/1618 07/06/1618 Objective Remarks This is an elderly averagely built white male who is pale and alert. EXTREMITIES: There is no clubbing. There is no leg edema. HEENT: Head normocephalic. Pupils are reactive and equal. Tongue was moist. Throat was clear. Ears, no inflammation. NECK: Supple. No venous distension. No thyromegaly or lymphadenopathy. CHEST: Decreased breath sounds at the bases .Occ wheeze heard. HEART: The heart sounds are regular S1-S2 with no murmur. No S3. ABDOMEN: The abdomen is soft, nontender. No organomegaly. The bowel sounds are active. EXTREMITIES: No Edema with diminished pulses and joint deformities of the extremities. SKIN: warm, dry. NEUROLOGIC: He is alert and oriented. Moves all extremities.There are no gross deficits. Assessment and Plan Assessment and Plan IMPRESSION 1. Cellulitis of the right upper extremity resolved 2. COPD with emphysema and chronic bronchitis 3. Coronary artery disease with stenting 4. Diabetes mellitus 5. History of hypertension. 6. Left Lung nodules Plan : 1. PT evaluation and ambulate. 2. Cont Nebs bid, duoneb. 3. O2 at 2 L. 4. Continue lasix 40 mg Po daily. 5. D/C Prednisone . 6. Voriconazole 400 mg PO daily 7. Liver profile on Thursday Liv Pinedo MD Jul 09, 2016 16:50
[2016-07-09 19:30] VITALS: O2SAT 94
[2016-07-09 20:00] VITALS: BP 152/80; PULSE 98; RESP 20; TEMP 96.9; O2SAT 98
[2016-07-09] MEDS: ZOLPIDEM TARTRATE 5 MG TAB PO PRN (21:35)
[2016-07-10] MEDS: ALPRAZolam 0.25 MG TAB PO PRN (01:26)
[2016-07-10] MEDS: HYPROMELLOSE 0.3 % OPTH GEL 10 GM (0.34 FL OZ) TUBE EACH EYE SCH ×4 (04:00→20:44)
[2016-07-10] MEDS: INSULIN ASPART SUPPLEMENTAL SCALE SQ SCH (05:40)
[2016-07-10 08:00] VITALS: BP 128/72; PULSE 82; RESP 18; TEMP 96.1; O2SAT 99
[2016-07-10] MEDS: LISINOPRIL 20 MG TAB PO SCH (08:43)
[2016-07-10] MEDS: FUROSEMIDE 40 MG TAB PO SCH (08:43)
[2016-07-10] MEDS: POTASSIUM PHOSPHATE MONOBASIC 500 MG TAB PO SCH ×2 (08:43→20:42)
[2016-07-10] MEDS: POTASSIUM CHLORIDE 20 MEQ CONTROLLED RELEASE TAB PO SCH (08:43)
[2016-07-10] MEDS: ASPIRIN 81 MG CHEW TAB CHEW SCH (08:43)
[2016-07-10] MEDS: LACTOBACILLUS ACIDOPHILUS TAB PO SCH ×3 (08:43→17:32)
[2016-07-10] MEDS: VORICONAZOLE 200 MG TAB PO SCH ×2 (08:43→20:42)
[2016-07-10] MEDS: METOPROLOL TARTRATE 50 MG TAB PO SCH ×2 (08:43→20:42)
[2016-07-10] MEDS: predniSONE 5 MG TAB PO SCH (08:43)
[2016-07-10] MEDS: PANTOPRAZOLE SOD 20 MG DELAYED RELEASE TAB PO SCH (08:43)
[2016-07-10] MEDS: HEPARIN SODIUM - SQ 10,000 UNITS/ML VIAL SQ SCH ×2 (08:44→20:43)
[2016-07-10] MEDS: BUDESONIDE-FORMOTEROL 160/4.5 MCG INHALER INH SCH ×2 (08:44→20:44)
--- NOTE | 2016-07-10 10:43 | HHI.PR ---
Subjective Remarks Follow-up for pneumonia. Patient states he is tired and has low appetite, but he denies any fevers or chills, chest pain or shortness of breath, cough, abdominal pain, vomiting, or diarrhea. Objective Vitals Vital Signs Date Time Temp Pulse Resp B/P Pulse Ox O2 Delivery O2 Flow Rate FiO2 07/09/16 20:00 96.9 98 20 152/80 98 07/09/16 19:30 94 Nasal Cannula 2.00 07/09/16 19:20 20 I/O 07/09/16 07/09/16 07/09/16 07/10/16 07/10/16 07/10/16 07:00 15:00 23:00 07:00 15:00 23:00 Intake Total 680 ml 780 ml 480 ml Output Total 500 ml 3 ml Balance 180 ml 777 ml 480 ml Intake Oral 680 ml 780 ml 480 ml Output Urine Total 500 ml 3 ml # Voids 2 5 # Bowel Movements 0 0 2 Result Diagram: 07/06/1691707/06/16917 Objective Remarks GENERAL: Elderly well-nourished, well-developed patient in no apparent distress. CARDIOVASCULAR: Regular rate and rhythm. RESPIRATORY: No accessory muscle use. Clear to auscultation bilaterally, but diminished. Nasal cannula not currently in place, but patient appears in no distress. GASTROINTESTINAL: Abdomen soft, non-tender, nondistended. NEUROLOGICAL: Awake and alert. PSYCHIATRIC: Insight and judgment normal. Procedures Incision and drainage of right hand abscess Bronchoscopy EGD with dilatation Urinary Catheter: No Vascular Central Line Catheter: No A/P Problem List: (1) SVT (supraventricular tachycardia) ICD Code: I47.1 Status: Resolved (2) Severe sepsis ICD Code: A41.9 Status: Resolved (3) COPD with acute exacerbation ICD Code: J44.1 Status: Acute (4) Sepsis ICD Code: A41.9 Status: Resolved (5) Cellulitis of right upper extremity ICD Code: L03.113 Status: Resolved (6) Abscess of hand, right ICD Code: L02.511 Status: Resolved (7) Olecranon bursitis, right elbow ICD Code: M70.21 Status: Resolved Assessment and Plan Severe sepsis due to cellulitis of the right upper extremity/right olecranon bursitis now resolved. -Previous venous Doppler of the upper extremities with no DVT -US of the right upper extremity with a complex mass overlying the right third finger. S/p I/D of the right hand MRSA abscess and treatment with Vancomycin. -Evaluated by ortho and hand surgery; cleared by hand surgery. Community acquired pneumonia -Status post treatment with Zosyn and Levaquin. -Bronchial washings culture with Aspergillus niger, on Voriconazole since 06/27- treatment per ID recommend at least 1 month of treatment. Voriconazole Stop date 07/27. -Call ID if acute issues develop. ID discussed with Dr. Jhaveri about need for outpt ID follow up. COPD exacerbation: still with dyspnea on exertion -Patient failed walk test recommended oxygen which he was on prior. Continue O2 via NC. -Pulmonology following. Per pulmonology, continue nebs bid, Duoneb; O2 at 2L, d/ c prednisone. Pulmonary nodules -Status post bronchoscopy; negative cytology. Repeat CT in 2 months, follow-up with pulmonology as an outpatient. SVT: due to sepsis; s/p Cardizem. -S/p cardiology consultation. -Continue Beta rosy Ischemic cardiomyopathy -S/p stent placement 2001, follow-up angiogram no intervention needed per patient. -Elevated troponin likely due to presenting tachycardia/sepsis. -Echo with EF 35% cautious use of BB hx of COPD -Cardiology reconsulted on 06/05, nonsustained VT felt to be secondary to NAN . Information from Dr Vora shows ECHO May 2016 with normal EF and cath from 2014 (Apr per pt) with stable CAD. Elevated trop likely from sepsis -Continue on aspirin. Continue to monitor. -Continue Lisinopril -Refuses heart healthy diet Acute on chronic systolic CHF exacerbation -Continue Lasix and monitor electrolytes. Hypertension: Controlled. -Continue lisinopril and metoprolol Diabetes mellitus 2 with previous hypoglycemic episode -No further hypoglycemia. Hyperglycemia secondary to steroids and noncompliance. BGL good this morning at 107. -Patient refuses all long-acting insulin and also refuses blood glucose checks aside from once daily and SSI at that time if needed. He was extensively counseled on need for insulin if BGL's are elevated as he could be putting himself at risk of DKA if not appropriately treated. Patient was informed of symptoms of DKA and that it can lead to coma or ; he understands and is cognitively capable of refusing. He adamantly denies having diabetes. RN was present for conversation regarding this. -07/10: Hemoglobin A1c 6.8 indicating well controlled diabetes as patient was on insulin previously. -Refuses diabetic diet. Anemia of chronic disease -S/p pRBC transfusion with improved H/H. Hemoglobin stable at 9.5. -Stool occult blood positive 1. GI performed endoscopy which showed gastritis and esophageal ring status post dilatations and biopsy. Ok with GI for aspirin. Refused colonoscopy. -Continue to monitor. Dry eyes. Continue with Eye lubricants. C. difficile colitis: -Completed Flagyl 07/06/16. -Monitor electrolytes DVT prophylaxis, SCD's and subcutaneous heparin Discharge Planning PT recommends home with outpatient PT/pulmonary rehab. Continue voriconazole by mouth until 07/27. Patient is homeless so cannot get oxygen unless patient has a place to live. Needs pulmonary follow-up for lung nodules. Case management following. Zoë Graham Jul 10, 2016 10:43
[2016-07-10] MEDS: ACETAMINOPHEN/HYDROcodone 325 MG/5 MG TAB PO PRN ×3 (12:48→20:41)
[2016-07-10 16:25] VITALS: O2SAT 97
[2016-07-10 19:32] VITALS: O2SAT 90
[2016-07-10] MEDS: RESP: ALBUTEROL 2.5 MG/IPRATROPIUM 0.5 MG NEB (SCH) NEB (19:32)
[2016-07-10 19:34] VITALS: O2SAT 96
[2016-07-10 20:00] VITALS: BP 135/77; PULSE 94; RESP 20; TEMP 97.1; O2SAT 94
[2016-07-10] MEDS: ZOLPIDEM TARTRATE 5 MG TAB PO PRN (22:47)
[2016-07-11] MEDS: ALPRAZolam 0.25 MG TAB PO PRN (04:32)
[2016-07-11] MEDS: HYPROMELLOSE 0.3 % OPTH GEL 10 GM (0.34 FL OZ) TUBE EACH EYE SCH ×4 (04:32→21:05)
[2016-07-11] MEDS: RESP: ALBUTEROL 2.5 MG/IPRATROPIUM 0.5 MG NEB (SCH) NEB ×2 (06:00→19:29)
[2016-07-11] MEDS: INSULIN ASPART SUPPLEMENTAL SCALE SQ SCH (06:34)
[2016-07-11 08:00] VITALS: BP 133/73; PULSE 80; RESP 20; TEMP 97.5; O2SAT 94
[2016-07-11 08:17] VITALS: O2SAT 94
[2016-07-11] MEDS: POTASSIUM PHOSPHATE MONOBASIC 500 MG TAB PO SCH ×2 (08:41→21:04)
[2016-07-11] MEDS: PANTOPRAZOLE SOD 20 MG DELAYED RELEASE TAB PO SCH (08:41)
[2016-07-11] MEDS: ACETAMINOPHEN/HYDROcodone 325 MG/5 MG TAB PO PRN ×2 (08:41→12:10)
[2016-07-11] MEDS: VORICONAZOLE 200 MG TAB PO SCH ×2 (08:41→21:04)
[2016-07-11] MEDS: LACTOBACILLUS ACIDOPHILUS TAB PO SCH ×3 (08:42→16:39)
[2016-07-11] MEDS: POTASSIUM CHLORIDE 20 MEQ CONTROLLED RELEASE TAB PO SCH (08:42)
[2016-07-11] MEDS: LISINOPRIL 20 MG TAB PO SCH (08:42)
[2016-07-11] MEDS: ASPIRIN 81 MG CHEW TAB CHEW SCH (08:42)
[2016-07-11] MEDS: METOPROLOL TARTRATE 50 MG TAB PO SCH ×2 (08:42→21:04)
[2016-07-11] MEDS: FUROSEMIDE 40 MG TAB PO SCH (08:42)
[2016-07-11] MEDS: BUDESONIDE-FORMOTEROL 160/4.5 MCG INHALER INH SCH ×2 (08:43→21:05)
[2016-07-11] MEDS: HEPARIN SODIUM - SQ 10,000 UNITS/ML VIAL SQ SCH ×3 (08:43→21:04)
--- NOTE | 2016-07-11 11:28 | HHI.PR ---
Subjective Remarks Patient states he walked 25 "laps" his room without the oxygen. Still refuses to continue long acting insulin. Refused SSI today per nurse. No acute complaints. No change in clinical status. Objective Vitals Vital Signs Date Time Temp Pulse Resp B/P Pulse Ox O2 Delivery O2 Flow Rate FiO2 07/11/16 09:48 16 07/11/16 08:17 94 Nasal Cannula 2.00 07/11/16 08:00 97.5 80 20 133/73 94 07/10/16 20:00 97.1 94 20 135/77 94 07/10/16 20:00 Nasal Cannula 2.00 07/10/16 19:34 96 Nasal Cannula 2.00 07/10/16 19:32 90 21 07/10/16 16:25 97 Nasal Cannula 2.00 I/O 07/10/16 07/10/16 07/10/16 07/11/16 07/11/16 07/11/16 07:00 15:00 23:00 07:00 15:00 23:00 Intake Total 480 ml 750 ml 720 ml 480 ml Balance 480 ml 750 ml 720 ml 480 ml Intake Oral 480 ml 750 ml 480 ml 480 ml Oral Supplement 240 ml # Voids 5 5 2 2 # Bowel Movements 2 1 0 0 Objective Remarks GENERAL: Elderly well-nourished, well-developed patient in no apparent distress. SKIN: Small open wound to the dorsal aspect of the right third MCP joint s/p I&D , appears to be healing. No surrounding erythema or edema; no drainage. CARDIOVASCULAR: Regular rate and rhythm. RESPIRATORY: No accessory muscle use. Clear to auscultation bilaterally, but diminished. GASTROINTESTINAL: Abdomen soft, non-tender, nondistended. MUSCULOSKELETAL: Patient has full flexion and extension of the right third MCP joint. No lower extremity edema. NEUROLOGICAL: Awake and alert. PSYCHIATRIC: Insight and judgment normal. Procedures Incision and drainage of right hand abscess Bronchoscopy EGD with dilatation Urinary Catheter: No Vascular Central Line Catheter: No A/P Problem List: (1) SVT (supraventricular tachycardia) ICD Code: I47.1 Status: Resolved (2) Severe sepsis ICD Code: A41.9 Status: Resolved (3) COPD with acute exacerbation ICD Code: J44.1 Status: Acute (4) Sepsis ICD Code: A41.9 Status: Resolved (5) Cellulitis of right upper extremity ICD Code: L03.113 Status: Resolved (6) Abscess of hand, right ICD Code: L02.511 Status: Resolved (7) Olecranon bursitis, right elbow ICD Code: M70.21 Status: Resolved Assessment and Plan Severe sepsis due to cellulitis of the right upper extremity/right olecranon bursitis now resolved. -Previous venous Doppler of the upper extremities with no DVT -US of the right upper extremity with a complex mass overlying the right third finger. S/p I/D of the right hand MRSA abscess and treatment with Vancomycin. -Evaluated by ortho and hand surgery; cleared by hand surgery. Community acquired pneumonia -Status post treatment with Zosyn and Levaquin. -Bronchial washings culture with Aspergillus niger, on Voriconazole since 06/27- treatment per ID recommend at least 1 month of treatment. Voriconazole Stop date 07/27. -Call ID if acute issues develop. ID discussed with Dr. Jhaveri about need for outpt ID follow up. COPD exacerbation: still with dyspnea on exertion -Patient failed walk test recommended oxygen which he was on prior. Continue O2 via NC. -Pulmonology following. Per pulmonology, continue nebs bid, Duoneb; O2 at 2L, d/ c prednisone. Pulmonary nodules -Status post bronchoscopy; negative cytology. Repeat CT in 2 months, follow-up with pulmonology as an outpatient. SVT: due to sepsis; s/p Cardizem. -S/p cardiology consultation. -Continue Beta rosy Ischemic cardiomyopathy -S/p stent placement 2001, follow-up angiogram no intervention needed per patient. -Elevated troponin likely due to presenting tachycardia/sepsis. -Echo with EF 35% cautious use of BB hx of COPD -Cardiology reconsulted on 06/05, nonsustained VT felt to be secondary to NAN . Information from Dr Vora shows ECHO May 2016 with normal EF and cath from 2014 (Apr per pt) with stable CAD. Elevated trop likely from sepsis -Continue on aspirin. Continue to monitor. -Continue Lisinopril -Refuses heart healthy diet Acute on chronic systolic CHF exacerbation -Continue Lasix and monitor electrolytes. Hypertension: Controlled. -Continue lisinopril and metoprolol Diabetes mellitus 2 with previous hypoglycemic episode -No further hypoglycemia. Hyperglycemia secondary to steroids and noncompliance. BGL good this morning at 107. -Patient refuses all long-acting insulin and also refuses blood glucose checks aside from once daily and SSI at that time if needed. He was extensively counseled on need for insulin if BGL's are elevated as he could be putting himself at risk of DKA if not appropriately treated. Patient was informed of symptoms of DKA and that it can lead to coma or ; he understands and is cognitively capable of refusing. He adamantly denies having diabetes. RN was present for conversation regarding this. -Hemoglobin A1c 6.8 indicating well controlled diabetes as patient was on insulin previously. -Refuses diabetic diet. -BGL 183 this morning. Refused SSI. Anemia of chronic disease -S/p pRBC transfusion with improved H/H. Hemoglobin stable at 9.5. -Stool occult blood positive 1. GI performed endoscopy which showed gastritis and esophageal ring status post dilatations and biopsy. Ok with GI for aspirin. Refused colonoscopy. -Continue to monitor. Dry eyes. Continue with Eye lubricants. C. difficile colitis: -Completed Flagyl 07/06/16. -Monitor electrolytes DVT prophylaxis, SCD's and subcutaneous heparin Discharge Planning PT recommends home with outpatient PT/pulmonary rehab. Continue voriconazole by mouth until 07/27. Patient is homeless so cannot get oxygen unless patient has a place to live. Needs pulmonary follow-up for lung nodules. Case management following. Zoë Graham Jul 11, 2016 11:28
[2016-07-11 19:30] VITALS: O2SAT 94
[2016-07-11 20:00] VITALS: BP 114/61; PULSE 97; RESP 20; TEMP 96; O2SAT 93
[2016-07-11] MEDS: ZOLPIDEM TARTRATE 5 MG TAB PO PRN (22:00)
[2016-07-12] MEDS: ALPRAZolam 0.25 MG TAB PO PRN (03:21)
[2016-07-12] MEDS: HYPROMELLOSE 0.3 % OPTH GEL 10 GM (0.34 FL OZ) TUBE EACH EYE SCH ×4 (03:22→21:11)
[2016-07-12] MEDS: INSULIN ASPART SUPPLEMENTAL SCALE SQ SCH (06:10)
[2016-07-12 08:00] VITALS: BP 112/73; PULSE 110; RESP 20; TEMP 97.6; O2SAT 92
[2016-07-12] MEDS: POTASSIUM CHLORIDE 20 MEQ CONTROLLED RELEASE TAB PO SCH (09:06)
[2016-07-12] MEDS: HEPARIN SODIUM - SQ 10,000 UNITS/ML VIAL SQ SCH ×2 (09:06→21:00)
[2016-07-12] MEDS: BUDESONIDE-FORMOTEROL 160/4.5 MCG INHALER INH SCH ×2 (09:06→21:11)
[2016-07-12] MEDS: LACTOBACILLUS ACIDOPHILUS TAB PO SCH ×3 (09:07→17:52)
[2016-07-12] MEDS: ASPIRIN 81 MG CHEW TAB CHEW SCH (09:07)
[2016-07-12] MEDS: PANTOPRAZOLE SOD 20 MG DELAYED RELEASE TAB PO SCH (09:07)
[2016-07-12] MEDS: POTASSIUM PHOSPHATE MONOBASIC 500 MG TAB PO SCH ×2 (09:07→21:10)
[2016-07-12] MEDS: LISINOPRIL 20 MG TAB PO SCH (09:08)
[2016-07-12] MEDS: FUROSEMIDE 40 MG TAB PO SCH (09:08)
[2016-07-12] MEDS: METOPROLOL TARTRATE 50 MG TAB PO SCH ×2 (09:08→21:10)
[2016-07-12] MEDS: VORICONAZOLE 200 MG TAB PO SCH ×2 (09:08→21:09)
[2016-07-12] MEDS: ACETAMINOPHEN/HYDROcodone 325 MG/5 MG TAB PO PRN ×3 (09:09→22:26)
[2016-07-12] MEDS: RESP: ALBUTEROL 2.5 MG/IPRATROPIUM 0.5 MG NEB (SCH) NEB ×2 (09:33→20:17)
[2016-07-12 09:35] VITALS: O2SAT 92
--- NOTE | 2016-07-12 11:36 | HHI.PR ---
Subjective Remarks Follow-up for pneumonia. Patient states he is tired. He is again not wearing his oxygen; states he took it off while eating. He denies any shortness of breath. Objective Vitals Vital Signs Date Time Temp Pulse Resp B/P Pulse Ox O2 Delivery O2 Flow Rate FiO2 07/12/16 10:41 18 07/12/16 09:35 92 Nasal Cannula 2.00 07/12/16 08:00 97.6 110 20 112/73 92 07/11/16 20:00 96.0 97 20 114/61 93 07/11/16 20:00 Nasal Cannula 2.00 07/11/16 19:30 94 Nasal Cannula 2.00 I/O 07/11/16 07/11/16 07/11/16 07/12/16 07/12/16 07/12/16 07:00 15:00 23:00 07:00 15:00 23:00 Intake Total 480 ml 360 ml 820 ml 480 ml Balance 480 ml 360 ml 820 ml 480 ml Intake Oral 480 ml 360 ml 580 ml 480 ml Oral Supplement 240 ml # Voids 2 1 4 2 # Bowel Movements 0 0 0 0 Objective Remarks GENERAL: Elderly well-nourished, well-developed patient in no apparent distress. CARDIOVASCULAR: Regular rate and rhythm. RESPIRATORY: No accessory muscle use. Decreased breath sounds over the left lower lobe, but otherwise clear. GASTROINTESTINAL: Abdomen soft, non-tender, nondistended. NEUROLOGICAL: Awake and alert. Procedures Incision and drainage of right hand abscess Bronchoscopy EGD with dilatation Urinary Catheter: No Vascular Central Line Catheter: No A/P Problem List: (1) SVT (supraventricular tachycardia) ICD Code: I47.1 Status: Resolved (2) Severe sepsis ICD Code: A41.9 Status: Resolved (3) COPD with acute exacerbation ICD Code: J44.1 Status: Acute (4) Sepsis ICD Code: A41.9 Status: Resolved (5) Cellulitis of right upper extremity ICD Code: L03.113 Status: Resolved (6) Abscess of hand, right ICD Code: L02.511 Status: Resolved (7) Olecranon bursitis, right elbow ICD Code: M70.21 Status: Resolved Assessment and Plan Severe sepsis due to cellulitis of the right upper extremity/right olecranon bursitis now resolved. -Previous venous Doppler of the upper extremities with no DVT -US of the right upper extremity with a complex mass overlying the right third finger. S/p I/D of the right hand MRSA abscess and treatment with Vancomycin. -Evaluated by ortho and hand surgery; cleared by hand surgery. Community acquired pneumonia -Status post treatment with Zosyn and Levaquin. -Bronchial washings culture with Aspergillus niger, on Voriconazole since 06/27- treatment per ID; recommend at least 1 month of treatment. Voriconazole Stop date 07/27. -Call ID if acute issues develop. ID discussed with Dr. Jhaveri about need for outpt ID follow up. -LFTs ordered for 07/14 COPD exacerbation: still with dyspnea on exertion -Patient failed walk test recommended oxygen which he was on prior. Continue O2 via NC. -Pulmonology following. Per pulmonology, continue Duonebs bid; O2 at 2L; prednisone discontinued. Pulmonary nodules -Status post bronchoscopy; negative cytology. Repeat CT in 2 months, follow-up with pulmonology as an outpatient. SVT: due to sepsis; s/p Cardizem. -S/p cardiology consultation. -Continue Beta rosy Ischemic cardiomyopathy -S/p stent placement 2001, follow-up angiogram no intervention needed per patient. -Elevated troponin likely due to presenting tachycardia/sepsis. -Echo with EF 35% cautious use of BB hx of COPD -Cardiology reconsulted on 06/05, nonsustained VT felt to be secondary to NAN . Information from Dr Vora shows ECHO May 2016 with normal EF and cath from 2014 (Apr per pt) with stable CAD. Elevated trop likely from sepsis -Continue on aspirin. Continue to monitor. -Continue Lisinopril -Refuses heart healthy diet Acute on chronic systolic CHF exacerbation -Continue Lasix and monitor electrolytes. Hypertension: Controlled. -Continue lisinopril and metoprolol Diabetes mellitus 2 with previous hypoglycemic episode -No further hypoglycemia. Hyperglycemia secondary to steroids and noncompliance. BGL good this morning at 100. -Patient refuses all long-acting insulin and also refuses blood glucose checks aside from once daily and SSI at that time if needed. He was extensively counseled on need for insulin if BGL's are elevated as he could be putting himself at risk of DKA if not appropriately treated. Patient was informed of symptoms of DKA and that it can lead to coma or ; he understands and is cognitively capable of refusing. He adamantly denies having diabetes. RN was present for conversation regarding this. -Hemoglobin A1c 6.8 indicating well controlled diabetes as patient was on insulin previously. -Refuses diabetic diet. Anemia of chronic disease -S/p pRBC transfusion with improved H/H. Hemoglobin stable at 9.5. -Stool occult blood positive 1. GI performed endoscopy which showed gastritis and esophageal ring status post dilatations and biopsy. Ok with GI for aspirin. Refused colonoscopy. -Continue to monitor. Dry eyes. Continue with Eye lubricants. C. difficile colitis: -Completed Flagyl 07/06/16. -Monitor electrolytes DVT prophylaxis, SCD's and subcutaneous heparin Discharge Planning PT recommends home with outpatient PT/pulmonary rehab. Continue voriconazole by mouth until 07/27. Patient is homeless so cannot get oxygen unless he has a place to live. Cannot be placed in [facility]pc or SNF due to criminal background. Needs pulmonary follow-up for lung nodules. Case management following. Zoë Graham Jul 12, 2016 11:36
[2016-07-12 20:17] VITALS: O2SAT 86
[2016-07-12 20:32] VITALS: O2SAT 93
[2016-07-12 20:39] VITALS: BP 133/83; PULSE 98; RESP 18; TEMP 98; O2SAT 98
[2016-07-12] MEDS: ZOLPIDEM TARTRATE 5 MG TAB PO PRN (23:38)
[2016-07-13] MEDS: HYPROMELLOSE 0.3 % OPTH GEL 10 GM (0.34 FL OZ) TUBE EACH EYE SCH ×4 (04:00→22:00)
[2016-07-13] MEDS: INSULIN ASPART SUPPLEMENTAL SCALE SQ SCH (05:40)
[2016-07-13] MEDS: FUROSEMIDE 40 MG TAB PO SCH (08:44)
[2016-07-13] MEDS: HEPARIN SODIUM - SQ 10,000 UNITS/ML VIAL SQ SCH ×2 (08:44→21:00)
[2016-07-13] MEDS: PANTOPRAZOLE SOD 20 MG DELAYED RELEASE TAB PO SCH (08:45)
[2016-07-13] MEDS: ASPIRIN 81 MG CHEW TAB CHEW SCH (08:45)
[2016-07-13] MEDS: POTASSIUM PHOSPHATE MONOBASIC 500 MG TAB PO SCH ×2 (08:45→22:21)
[2016-07-13] MEDS: VORICONAZOLE 200 MG TAB PO SCH ×2 (08:45→22:22)
[2016-07-13] MEDS: ACETAMINOPHEN/HYDROcodone 325 MG/5 MG TAB PO PRN ×2 (08:45→22:22)
[2016-07-13] MEDS: POTASSIUM CHLORIDE 20 MEQ CONTROLLED RELEASE TAB PO SCH (08:45)
[2016-07-13] MEDS: METOPROLOL TARTRATE 50 MG TAB PO SCH ×2 (08:45→22:23)
[2016-07-13] MEDS: ALPRAZolam 0.25 MG TAB PO PRN (08:45)
[2016-07-13] MEDS: LISINOPRIL 20 MG TAB PO SCH (08:45)
[2016-07-13] MEDS: LACTOBACILLUS ACIDOPHILUS TAB PO SCH ×3 (08:46→17:14)
[2016-07-13] MEDS: NAPHAZOLINE HCL 0.012% OPHT SOLN 15 ML BOTTLE EACH EYE PRN ×2 (08:46→22:19)
[2016-07-13] MEDS: RESP: ALBUTEROL 2.5 MG/IPRATROPIUM 0.5 MG NEB (SCH) NEB ×2 (08:55→21:00)
[2016-07-13 08:56] VITALS: O2SAT 93
[2016-07-13] MEDS: BUDESONIDE-FORMOTEROL 160/4.5 MCG INHALER INH SCH ×2 (09:00→22:19)
[2016-07-13 16:09] VITALS: BP 108/59; PULSE 91; RESP 20; TEMP 97.3; O2SAT 94
--- NOTE | 2016-07-13 17:02 | HHI.PR ---
Subjective Remarks Patient seen and evaluated today in follow-up for Aspergillus pneumonia. Continuing with antimicrobial therapy. No new events and blood sugar is stable. Objective Vitals Vital Signs Date Time Temp Pulse Resp B/P Pulse Ox O2 Delivery O2 Flow Rate FiO2 07/13/16 16:09 97.3 91 20 108/59 94 07/13/16 11:30 Nasal Cannula 2.00 21 07/13/16 10:01 18 07/13/16 08:56 93 Nasal Cannula 2.00 07/12/16 20:39 98.0 98 18 133/83 98 07/12/16 20:32 93 Nasal Cannula 2.00 07/12/16 20:17 86 21 07/12/16 20:00 Nasal Cannula 2.00 I/O 07/12/16 07/12/16 07/12/16 07/13/16 07/13/16 07/13/16 07:00 15:00 23:00 07:00 15:00 23:00 Intake Total 480 ml 720 ml 0 ml 650 ml Balance 480 ml 720 ml 0 ml 650 ml Intake Oral 480 ml 720 ml 650 ml IV Total 0 ml 0 ml # Voids 2 4 # Bowel Movements 0 1 Objective Remarks GENERAL: This is a well-nourished, well-developed patient, in no apparent distress. CARDIOVASCULAR: Regular rate and rhythm without murmurs, gallops, or rubs. RESPIRATORY: Clear to auscultation. Breath sounds equal bilaterally. No wheezes , rales, or rhonchi. GASTROINTESTINAL: Abdomen soft, non-tender, nondistended. Normal active bowel sounds MUSCULOSKELETAL: Extremities without clubbing, cyanosis, or edema. NEURO: Alert & Oriented x4 to person, place, time, situation. Moves all ext x4 Procedures Incision and drainage of right hand abscess Bronchoscopy EGD with dilatation A/P Assessment and Plan Hospital day #38 for this gentleman being treated for Aspergillus pneumonia #1. Resolved Severe sepsis due to cellulitis of the right upper extremity/right olecranon bursitis 2. S/p I/D of the right hand MRSA abscess and treatment with Vancomycin. 3. Community acquired pneumonia, resolved however, Bronchial washings culture with Aspergillus niger, on Voriconazole since 06/27- Voriconazole Stop date . folllow up LFTs ordered for 07/14 4. COPD exacerbation: still with dyspnea on exertion : needs O2 continue Duonebs bid; O2 at 2L SSI/Acappela 5. SVT: due to sepsis, Continue Beta rosy, with Ischemic cardiomyopathy, cont asa/lisinopril, lasix 6. Hypertension: Controlled. Continue lisinopril and metoprolol 7. Diabetes mellitus 2 with previous hypoglycemic episode; Patient not adherant (Patient refuses all long-acting insulin and also refuses blood glucose checks aside from once daily and SSI at that time if needed. He was extensively counseled on need for insulin if BGL's are elevated as he could be putting himself at risk of DKA if not appropriately treated. Patient was informed of symptoms of DKA and that it can lead to coma or ; he understands and is cognitively capable of refusing. He adamantly denies having diabetes. RN was present for conversation regarding this and refuses ADA diet) Rose Byrne MD Jul 13, 2016 17:02
--- NOTE | 2016-07-13 17:46 | HHI.PR ---
Subjective Remarks Feels better. ,and On O2 at 2 L. Ambulating in room. Coughs up clear sputum. Objective Vital Signs Date Time Temp Pulse Resp B/P Pulse Ox O2 Delivery O2 Flow Rate FiO2 07/13/16 16:09 97.3 91 20 108/59 94 07/13/16 11:30 Nasal Cannula 2.00 21 07/13/16 10:01 18 07/13/16 08:56 93 Nasal Cannula 2.00 07/12/16 20:39 98.0 98 18 133/83 98 07/12/16 20:32 93 Nasal Cannula 2.00 07/12/16 20:17 86 21 07/12/16 20:00 Nasal Cannula 2.00 I/O 07/12/16 07/12/16 07/12/16 07/13/16 07/13/16 07/13/16 07:00 15:00 23:00 07:00 15:00 23:00 Intake Total 480 ml 720 ml 0 ml 650 ml Balance 480 ml 720 ml 0 ml 650 ml Intake Oral 480 ml 720 ml 650 ml IV Total 0 ml 0 ml # Voids 2 4 # Bowel Movements 0 1 Objective Remarks This is an elderly averagely built white male who is alert. EXTREMITIES: There is no clubbing. There is no leg edema. HEENT: Head normocephalic. Pupils are reactive and equal. Tongue was moist. Throat was clear. Ears, no inflammation. NECK: Supple. No venous distension. No thyromegaly or lymphadenopathy. CHEST: Decreased breath sounds at the bases .Occ wheeze heard. HEART: The heart sounds are regular S1-S2 with no murmur. No S3. ABDOMEN: The abdomen is soft, nontender. No organomegaly. The bowel sounds are active. EXTREMITIES: No Edema with diminished pulses and joint deformities of the extremities. SKIN: warm, dry. NEUROLOGIC: He is alert and oriented. Moves all extremities.There are no gross deficits. Assessment and Plan Assessment and Plan IMPRESSION 1. Cellulitis of the right upper extremity resolved 2. COPD with emphysema and chronic bronchitis 3. Coronary artery disease with stenting 4. Diabetes mellitus 5. History of hypertension. 6. Left Lung nodules Plan : 1. PT evaluation and ambulate. 2. Cont Nebs bid, duoneb. 3. O2 at 2 L. 4. Continue lasix 40 mg Po daily. 5. Will do CT chest W/O in 2 weeks. 6. Voriconazole 400 mg PO daily Liv Pinedo MD Jul 13, 2016 17:46
[2016-07-13 21:00] VITALS: O2SAT 89
[2016-07-13 21:37] VITALS: BP 123/66; PULSE 107; RESP 22; TEMP 98.4; O2SAT 95
[2016-07-13] MEDS: ZOLPIDEM TARTRATE 5 MG TAB PO PRN (22:21)
[2016-07-14] MEDS: HYPROMELLOSE 0.3 % OPTH GEL 10 GM (0.34 FL OZ) TUBE EACH EYE SCH ×4 (04:00→22:48)
[2016-07-14] MEDS: INSULIN ASPART SUPPLEMENTAL SCALE SQ SCH (05:50)
[2016-07-14] MEDS: RESP: ALBUTEROL 2.5 MG/IPRATROPIUM 0.5 MG NEB (SCH) NEB ×2 (07:54→20:20)
[2016-07-14 07:56] VITALS: O2SAT 92
[2016-07-14 08:00] VITALS: BP 105/58; PULSE 91; RESP 20; TEMP 96.8; O2SAT 91
[2016-07-14 08:33] LABS: INDIRECT BILIRUBIN 0.3 MG/DL (0.0-0.8); TOTAL BILIRUBIN ADULT 0.4 MG/DL (0.2-1.0)
[2016-07-14] MEDS: BUDESONIDE-FORMOTEROL 160/4.5 MCG INHALER INH SCH ×2 (09:00→22:48)
[2016-07-14] MEDS: HEPARIN SODIUM - SQ 10,000 UNITS/ML VIAL SQ SCH ×2 (09:00→21:00)
--- NOTE | 2016-07-14 09:36 | HHI.PR ---
Subjective Remarks Follow-up for Aspergillus pneumonia. Patient complains of some nose bleeding. Blood visible on tissue after he blows his nose. Objective Vitals Vital Signs Date Time Temp Pulse Resp B/P Pulse Ox O2 Delivery O2 Flow Rate FiO2 07/14/16 08:00 96.8 91 20 105/58 91 07/14/16 08:00 Nasal Cannula 2.00 07/14/16 07:56 92 Nasal Cannula 2.00 07/13/16 21:37 98.4 107 22 123/66 95 07/13/16 21:00 89 21 07/13/16 20:00 Nasal Cannula 2.00 07/13/16 16:09 97.3 91 20 108/59 94 07/13/16 11:30 Nasal Cannula 2.00 21 07/13/16 10:01 18 I/O 07/13/16 07/13/16 07/13/16 07/14/16 07/14/16 07/14/16 07:00 15:00 23:00 07:00 15:00 23:00 Intake Total 0 ml 650 ml Output Total 300 ml Balance 0 ml 350 ml Intake Oral 650 ml IV Total 0 ml Output Urine Total 300 ml # Voids 2 Objective Remarks GENERAL: Elderly well-nourished, well-developed patient in no apparent distress sitting on side of bed about to eat breakfast. ENT: No active epistaxis. Blood noted on tissue. CARDIOVASCULAR: Regular rate and rhythm. RESPIRATORY: No accessory muscle use. Diminished breath sounds. Crackles over left base. GASTROINTESTINAL: Abdomen soft, non-tender, nondistended. NEUROLOGICAL: Awake and alert. Procedures Incision and drainage of right hand abscess Bronchoscopy EGD with dilatation Urinary Catheter: No Vascular Central Line Catheter: No A/P Problem List: (1) SVT (supraventricular tachycardia) ICD Code: I47.1 Status: Resolved (2) Severe sepsis ICD Code: A41.9 Status: Resolved (3) COPD with acute exacerbation ICD Code: J44.1 Status: Acute (4) Sepsis ICD Code: A41.9 Status: Resolved (5) Cellulitis of right upper extremity ICD Code: L03.113 Status: Resolved (6) Abscess of hand, right ICD Code: L02.511 Status: Resolved (7) Olecranon bursitis, right elbow ICD Code: M70.21 Status: Resolved Assessment and Plan Severe sepsis due to cellulitis of the right upper extremity/right olecranon bursitis now resolved. -Previous venous Doppler of the upper extremities with no DVT -US of the right upper extremity with a complex mass overlying the right third finger. S/p I/D of the right hand MRSA abscess and treatment with Vancomycin. -Evaluated by ortho and hand surgery; cleared by hand surgery. Community acquired pneumonia -Status post treatment with Zosyn and Levaquin. -Bronchial washings culture with Aspergillus niger, on Voriconazole since 06/27- treatment per ID; recommend at least 1 month of treatment. Voriconazole Stop date 07/27. -Call ID if acute issues develop. ID discussed with Dr. Jhaveri about need for outpt ID follow up. -07/14: LFTs reviewed and normal. Monitor periodically due to Variconazole use. -Per pulmonology, will need repeat CT of the chest without contrast in 2 weeks. COPD exacerbation: still with dyspnea on exertion -Patient failed walk test recommended oxygen which he was on prior. Continue O2 via NC. -Pulmonology following. Per pulmonology, continue Duonebs bid; O2 at 2L; prednisone discontinued. Pulmonary nodules -Status post bronchoscopy; negative cytology. Repeat CT in 2 months, follow-up with pulmonology as an outpatient. SVT: due to sepsis; s/p Cardizem. -S/p cardiology consultation. -Continue Beta rosy Ischemic cardiomyopathy -S/p stent placement 2001, follow-up angiogram no intervention needed per patient. -Elevated troponin likely due to presenting tachycardia/sepsis. -Echo with EF 35% cautious use of BB hx of COPD -Cardiology reconsulted on 06/05, nonsustained VT felt to be secondary to NAN . Information from Dr Vora shows ECHO May 2016 with normal EF and cath from 2014 (Apr per pt) with stable CAD. Elevated trop likely from sepsis -Continue on aspirin. Continue to monitor. -Continue Lisinopril -Refuses heart healthy diet Acute on chronic systolic CHF exacerbation -Continue Lasix and monitor electrolytes. Hypertension: Controlled. -Continue lisinopril and metoprolol Diabetes mellitus 2 with previous hypoglycemic episode -No further hypoglycemia. Hyperglycemia secondary to steroids and noncompliance. BGL good this morning at 100. -Patient refuses all long-acting insulin and also refuses blood glucose checks aside from once daily and SSI at that time if needed. He was extensively counseled on need for insulin if BGL's are elevated as he could be putting himself at risk of DKA if not appropriately treated. Patient was informed of symptoms of DKA and that it can lead to coma or ; he understands and is cognitively capable of refusing. He adamantly denies having diabetes. RN was present for conversation regarding this. -Hemoglobin A1c 6.8 indicating well controlled diabetes as patient was on insulin previously. -Refuses diabetic diet. Anemia of chronic disease -S/p pRBC transfusion with improved H/H. Hemoglobin stable at 9.5. -Stool occult blood positive 1. GI performed endoscopy which showed gastritis and esophageal ring status post dilatations and biopsy. Ok with GI for aspirin. Refused colonoscopy. -Continue to monitor. Dry eyes. Continue with Eye lubricants. C. difficile colitis: -Completed Flagyl 07/06/16. -Monitor electrolytes Minor epistaxis with nose blowing: Likely attributed to dry nares. Patient refuses humidified oxygen as he states it causes him to have too much phlegm. Nasal saline drops ordered. DVT prophylaxis, SCD's and subcutaneous heparin Discharge Planning PT recommends home with outpatient PT/pulmonary rehab. Continue voriconazole by mouth until 07/27. Patient is homeless so cannot get oxygen unless he has a place to live. Cannot be placed in long-term or SNF due to criminal background. Needs pulmonary follow-up for lung nodules. Case management following. Zoë Graham Jul 14, 2016 09:36
[2016-07-14] MEDS: POTASSIUM PHOSPHATE MONOBASIC 500 MG TAB PO SCH ×2 (10:25→22:50)
[2016-07-14] MEDS: METOPROLOL TARTRATE 50 MG TAB PO SCH ×2 (10:25→22:49)
[2016-07-14] MEDS: PANTOPRAZOLE SOD 20 MG DELAYED RELEASE TAB PO SCH (10:26)
[2016-07-14] MEDS: FUROSEMIDE 40 MG TAB PO SCH (10:26)
[2016-07-14] MEDS: LACTOBACILLUS ACIDOPHILUS TAB PO SCH ×3 (10:26→16:26)
[2016-07-14] MEDS: POTASSIUM CHLORIDE 20 MEQ CONTROLLED RELEASE TAB PO SCH (10:26)
[2016-07-14] MEDS: VORICONAZOLE 200 MG TAB PO SCH ×2 (10:26→22:49)
[2016-07-14] MEDS: LISINOPRIL 20 MG TAB PO SCH (10:26)
[2016-07-14] MEDS: ASPIRIN 81 MG CHEW TAB CHEW SCH (10:26)
[2016-07-14] MEDS: NAPHAZOLINE HCL 0.012% OPHT SOLN 15 ML BOTTLE EACH EYE PRN (10:28)
[2016-07-14] MEDS ORDERED: SODIUM CHLORIDE 0.65% NASAL DRP/SPRY 30 ML BTL PRN (11:45)
[2016-07-14] MEDS: ACETAMINOPHEN/HYDROcodone 325 MG/5 MG TAB PO PRN ×2 (14:37→22:50)
[2016-07-14] MEDS ORDERED: SODIUM CHLORIDE 0.65% NASAL SPRAY 45 ML BTL NASAL PRN (15:53)
[2016-07-14 20:00] VITALS: BP 129/74; PULSE 101; RESP 20; TEMP 98.2; O2SAT 95
[2016-07-14 20:20] VITALS: O2SAT 93
--- NOTE | 2016-07-14 21:46 | HHI.PR ---
Addendum to Inpatient Note Addendum Reason: Additional Documentation Additional Information While on voriconazole please check weekly CMP including LFTs due to potential hepatotoxicity. Please call ID in 4th week of treatment to reassess continuing need for aspergillus niger treatment. Will sign off please call back if any change in clinical condition. Call ID interventional physiatrist at [place]. Roya Velez MD Jul 14, 2016 21:46
[2016-07-14] MEDS: ZOLPIDEM TARTRATE 5 MG TAB PO PRN (22:50)
[2016-07-15] MEDS: ACETAMINOPHEN/HYDROcodone 325 MG/5 MG TAB PO PRN ×2 (06:12→21:00)
[2016-07-15] MEDS: INSULIN ASPART SUPPLEMENTAL SCALE SQ SCH (06:14)
[2016-07-15] MEDS: HYPROMELLOSE 0.3 % OPTH GEL 10 GM (0.34 FL OZ) TUBE EACH EYE SCH ×3 (06:15→12:04)
[2016-07-15 08:00] VITALS: BP 113/63; PULSE 90; RESP 20; TEMP 97.5; O2SAT 98
[2016-07-15] MEDS: NAPHAZOLINE HCL 0.012% OPHT SOLN 15 ML BOTTLE EACH EYE PRN (08:52)
[2016-07-15] MEDS: BUDESONIDE-FORMOTEROL 160/4.5 MCG INHALER INH SCH ×2 (08:52→20:44)
[2016-07-15] MEDS: LACTOBACILLUS ACIDOPHILUS TAB PO SCH ×3 (08:53→17:10)
[2016-07-15] MEDS: POTASSIUM PHOSPHATE MONOBASIC 500 MG TAB PO SCH ×2 (08:53→21:00)
[2016-07-15] MEDS: METOPROLOL TARTRATE 50 MG TAB PO SCH ×2 (08:53→21:01)
[2016-07-15] MEDS: PANTOPRAZOLE SOD 20 MG DELAYED RELEASE TAB PO SCH (08:53)
[2016-07-15] MEDS: ASPIRIN 81 MG CHEW TAB CHEW SCH (08:53)
[2016-07-15] MEDS: VORICONAZOLE 200 MG TAB PO SCH ×2 (08:53→21:01)
[2016-07-15] MEDS: LISINOPRIL 20 MG TAB PO SCH (08:53)
[2016-07-15] MEDS: POTASSIUM CHLORIDE 20 MEQ CONTROLLED RELEASE TAB PO SCH (08:53)
[2016-07-15] MEDS: FUROSEMIDE 40 MG TAB PO SCH (08:54)
[2016-07-15] MEDS: HEPARIN SODIUM - SQ 10,000 UNITS/ML VIAL SQ SCH ×2 (08:57→21:02)
--- NOTE | 2016-07-15 15:38 | HHI.PR ---
Subjective Remarks Patient seen and examined today. Patient states that he has a lot of gas to include flatulence. Would like medication for. Denies any other complaints or concerns. Objective Vitals Vital Signs Date Time Temp Pulse Resp B/P Pulse Ox O2 Delivery O2 Flow Rate FiO2 07/15/16 08:00 Nasal Cannula 2.00 07/15/16 08:00 97.5 90 20 113/63 98 07/14/16 20:20 93 Nasal Cannula 2.00 07/14/16 20:00 95 Nasal Cannula 2.00 07/14/16 20:00 98.2 101 20 129/74 95 I/O 07/14/16 07/14/16 07/14/16 07/15/16 07/15/16 07/15/16 07:00 15:00 23:00 07:00 15:00 23:00 Intake Total 360 ml 580 ml 0 ml 480 ml Output Total 0 ml Balance 360 ml 580 ml 0 ml 480 ml Intake Oral 360 ml 580 ml 0 ml 480 ml Output Urine Total 0 ml # Voids 2 2 3 0 3 # Bowel Movements 0 0 0 0 Objective Remarks GENERAL: Well-developed, well-nourished, in no acute distress. alert and orientated HEENT: Head is normocephalic without any lesions or masses noted. Facial features are symmetric. Eyes: Extraocular muscles are intact. Conjunctivae were clear. NECK: Supple without any masses. Trachea midline no deviation. No JVD, CARDIAC: Regular rhythm, regular rate. S1/S2 are heard. No murmurs gallops or rubs. LUNGS: Clear to auscultation bilaterally. No wheeze, rhonchi or rales. No use of accessory muscles on inspiration or expiration. ABDOMEN: Soft, nontender. Nondistended. Bowel sounds heard in all 4 quadrants. No organomegaly or masses. Negative rebound, negative guarding EXTREMITIES: No edema, pulses are equal bilaterally. No cyanosis or clubbing NEUROLOGY: Mood and affect appear appropriate. Cranial nerves II through XII grossly intact. Moving all extremities, speech is clear Procedures Incision and drainage of right hand abscess Bronchoscopy EGD with dilatation Urinary Catheter: No Vascular Central Line Catheter: No A/P Assessment and Plan Community acquired pneumonia -Status post treatment with Zosyn and Levaquin. -Bronchial washings culture with Aspergillus niger, on Voriconazole since 06/27- treatment per ID; recommend at least 1 month of treatment. Voriconazole Stop date 07/27. -Call ID if acute issues develop. ID discussed with Dr. Jhaveri about need for outpt ID follow up. -07/14: LFTs reviewed and normal. Monitor periodically due to Variconazole use. -Per pulmonology, will need repeat CT of the chest without contrast in 2 weeks. Severe sepsis due to cellulitis of the right upper extremity/right olecranon bursitis now resolved. -Previous venous Doppler of the upper extremities with no DVT -US of the right upper extremity with a complex mass overlying the right third finger. S/p I/D of the right hand MRSA abscess and treatment with Vancomycin. -Evaluated by ortho and hand surgery; cleared by hand surgery. COPD exacerbation: still with dyspnea on exertion -Patient failed walk test recommended oxygen which he was on prior. -Pulmonology following. Continue O2, nebulizer as needed Pulmonary nodules -Status post bronchoscopy; negative cytology. Repeat CT in 2 months, follow-up with pulmonology as an outpatient. SVT: due to sepsis; s/p Cardizem. -S/p cardiology consultation. -Continue Beta rosy Ischemic cardiomyopathy -S/p stent placement 2001, follow-up angiogram no intervention needed per patient. -Elevated troponin likely due to presenting tachycardia/sepsis. -Echo with EF 35% cautious use of BB hx of COPD -Cardiology reconsulted on 06/05, nonsustained VT felt to be secondary to NAN . Information from Dr Vora shows ECHO May 2016 with normal EF and cath from 2014 (Apr per pt) with stable CAD. Elevated trop likely from sepsis -Continue on aspirin. Continue to monitor. -Continue Lisinopril -Refuses heart healthy diet Acute on chronic systolic CHF exacerbation -Continue Lasix and monitor electrolytes. Hypertension: Controlled. -Continue lisinopril and metoprolol Diabetes mellitus 2 with previous hypoglycemic episode -No further hypoglycemia. Blood glucose readings [id number] -Patient not required any insulin in 5 days -Patient was counseled on refusal of Accu-Cheks and insulin. I have risk of developing DKA. -Hemoglobin A1c 6.8 indicating well controlled diabetes as patient was on insulin previously. -Refuses diabetic diet. Anemia of chronic disease -S/p pRBC transfusion with improved H/H. Hemoglobin stable at 9.5. -Stool occult blood positive 1. GI performed endoscopy which showed gastritis and esophageal ring status post dilatations and biopsy. Ok with GI for aspirin. Refused colonoscopy. -Continue to monitor. C. difficile colitis: -Completed Flagyl 07/06/16. -Monitor electrolytes DVT prophylaxis, SCD's and subcutaneous heparin Discharge Planning Case management for discharge planning. Last documented evaluation with 07/07/16 and indicating patient be transferred to [facility]. 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 Patient will likely remain in hospital until completion of antibiotics on 07/27/16 Latrell Mcnair Jul 15, 2016 15:38
[2016-07-15] MEDS ORDERED: ONDANSETRON ODT 4 MG TAB PO PRN (15:45)
[2016-07-15 20:00] VITALS: BP 127/65; PULSE 105; RESP 21; TEMP 97.4; O2SAT 95
[2016-07-15] MEDS: ZOLPIDEM TARTRATE 5 MG TAB PO PRN (21:01)
[2016-07-15 21:36] VITALS: O2SAT 96
[2016-07-16 07:15] VITALS: BP 112/68; PULSE 94; RESP 22; TEMP 96.7; O2SAT 91
[2016-07-16 07:32] LABS: AUTOMATED NEUTROPHIL # 2.6 TH/MM3 (1.8-7.7); BASOPHIL % 0.5 % (0.0-2.0); EOSINOPHIL % 0.3 % (0.0-4.0); HEMATOCRIT 28.3 % (39.0-51.0); HEMO FLAGS DIFF FINAL; LYMPH % 49.5 % (9.0-44.0); LYMPHOCYTE # 3.4 TH/MM3 (1.0-4.8); MEAN CELL VOLUME 87.6 FL (80.0-100.0); MEAN CORPUSCULAR HEMOGLOBIN 27.6 PG (27.0-34.0); MEAN CORPUSCULAR HGB CONC 31.5 % (32.0-36.0); MONO % 11.1 % (0.0-8.0); NEUT % 38.6 % (16.0-70.0); PLATELET COUNT 163 TH/MM3 (150-450); RED BLOOD COUNT 3.23 MIL/MM3 (4.50-5.90); RED CELL DISTRIBUTION WIDTH 22.7 % (11.6-17.2); WHITE BLOOD COUNT 6.8 TH/MM3 (4.0-11.0)
[2016-07-16 07:52] LABS: POTASSIUM 4.4 MEQ/L (3.5-5.1)
[2016-07-16 07:55] LABS: BICARBONATE 28.2 MEQ/L (21.0-32.0); MAGNESIUM 1.8 MG/DL (1.5-2.5)
[2016-07-16 08:00] VITALS: BP 112/68; PULSE 94; RESP 22; TEMP 96.7; O2SAT 91
[2016-07-16] MEDS: VORICONAZOLE 200 MG TAB PO SCH ×2 (08:24→21:23)
[2016-07-16] MEDS: METOPROLOL TARTRATE 50 MG TAB PO SCH ×2 (08:24→21:24)
[2016-07-16] MEDS: LISINOPRIL 20 MG TAB PO SCH (08:24)
[2016-07-16] MEDS: POTASSIUM PHOSPHATE MONOBASIC 500 MG TAB PO SCH ×2 (08:25→21:31)
[2016-07-16] MEDS: ASPIRIN 81 MG CHEW TAB CHEW SCH (08:25)
[2016-07-16] MEDS: FUROSEMIDE 40 MG TAB PO SCH (08:25)
[2016-07-16] MEDS: PANTOPRAZOLE SOD 20 MG DELAYED RELEASE TAB PO SCH (08:25)
[2016-07-16] MEDS: POTASSIUM CHLORIDE 20 MEQ CONTROLLED RELEASE TAB PO SCH (08:26)
[2016-07-16] MEDS: LACTOBACILLUS ACIDOPHILUS TAB PO SCH ×3 (08:26→17:53)
[2016-07-16] MEDS: BUDESONIDE-FORMOTEROL 160/4.5 MCG INHALER INH SCH ×2 (08:27→21:23)
[2016-07-16] MEDS: HEPARIN SODIUM - SQ 10,000 UNITS/ML VIAL SQ SCH ×2 (08:30→21:00)
[2016-07-16] MEDS: ACETAMINOPHEN/HYDROcodone 325 MG/5 MG TAB PO PRN ×2 (08:30→18:28)
--- NOTE | 2016-07-16 09:11 | HHI.PR ---
Subjective Remarks Patient seen and examined today. Patient denies any new complaints. Patient states that he doesn't feel his respiratory status is improving. I counseled patient extensively on his pneumonia and that it may take a couple months until his respiratory status is improved. Reassured him to continue to use incentive spirometry, getting out of bed, ambulating. Objective Vitals Vital Signs Date Time Temp Pulse Resp B/P Pulse Ox O2 Delivery O2 Flow Rate FiO2 07/15/16 22:00 16 07/15/16 21:36 96 Nasal Cannula 2.00 07/15/16 20:00 Nasal Cannula 2.00 07/15/16 20:00 97.4 105 21 127/65 95 I/O 07/15/16 07/15/16 07/15/16 07/16/16 07/16/16 07/16/16 07:00 15:00 23:00 07:00 15:00 23:00 Intake Total 0 ml 480 ml 480 ml 240 ml 240 ml Output Total 0 ml Balance 0 ml 480 ml 480 ml 240 ml 240 ml Intake Oral 0 ml 480 ml 480 ml 240 ml 240 ml Output Urine Total 0 ml # Voids 0 3 1 1 1 # Bowel Movements 0 0 0 0 0 Result Diagram: 07/16/16 0650 07/16/16 0650 Objective Remarks GENERAL: Well-developed, well-nourished, in no acute distress. alert and orientated HEENT: Head is normocephalic without any lesions or masses noted. Facial features are symmetric. Eyes: Extraocular muscles are intact. Conjunctivae were clear. NECK: Supple without any masses. Trachea midline no deviation. No JVD, CARDIAC: Regular rhythm, regular rate. S1/S2 are heard. No murmurs gallops or rubs. LUNGS: Clear to auscultation bilaterally. No wheeze, rhonchi or rales. No use of accessory muscles on inspiration or expiration. ABDOMEN: Soft, nontender. Nondistended. Bowel sounds heard in all 4 quadrants. No organomegaly or masses. Negative rebound, negative guarding EXTREMITIES: No edema, pulses are equal bilaterally. No cyanosis or clubbing NEUROLOGY: Mood and affect appear appropriate. Cranial nerves II through XII grossly intact. Moving all extremities, speech is clear Procedures Incision and drainage of right hand abscess Bronchoscopy EGD with dilatation Urinary Catheter: No Vascular Central Line Catheter: No A/P Assessment and Plan Community acquired pneumonia -Status post treatment with Zosyn and Levaquin. -Bronchial washings culture with Aspergillus niger, on Voriconazole since 06/27- treatment per ID; recommend at least 1 month of treatment. Voriconazole Stop date 07/27. -Call ID if acute issues develop. ID discussed with Dr. Jhaveri about need for outpt ID follow up. -07/14: LFTs reviewed and normal. Monitor periodically due to Variconazole use. -Per pulmonology, will need repeat CT of the chest without contrast in 2 weeks. Severe sepsis due to cellulitis of the right upper extremity/right olecranon bursitis now resolved. -Previous venous Doppler of the upper extremities with no DVT -US of the right upper extremity with a complex mass overlying the right third finger. S/p I/D of the right hand MRSA abscess and treatment with Vancomycin. -Evaluated by ortho and hand surgery; cleared by hand surgery. COPD exacerbation: still with dyspnea on exertion -Patient failed walk test recommended oxygen which he was on prior. -Pulmonology following. Continue O2, nebulizer as needed Pulmonary nodules -Status post bronchoscopy; negative cytology. Repeat CT in 2 months, follow-up with pulmonology as an outpatient. SVT: due to sepsis; s/p Cardizem. -S/p cardiology consultation. -Continue Beta rosy Ischemic cardiomyopathy -S/p stent placement 2001, follow-up angiogram no intervention needed per patient. -Elevated troponin likely due to presenting tachycardia/sepsis. -Echo with EF 35% cautious use of BB hx of COPD -Cardiology reconsulted on 06/05, nonsustained VT felt to be secondary to NAN . Information from Dr Vora shows ECHO May 2016 with normal EF and cath from 2014 (Dec per pt) with stable CAD. Elevated trop likely from sepsis -Continue on aspirin. Continue to monitor. -Continue Lisinopril -Refuses heart healthy diet Acute on chronic systolic CHF exacerbation -Continue Lasix and monitor electrolytes. Hypertension: Controlled. -Continue lisinopril and metoprolol Diabetes mellitus 2 with previous hypoglycemic episode -No further hypoglycemia. Blood glucose readings [id number] -Patient did not require insulin in over 5 days. Accu-Cheks and sliding so insulin was discontinued -Patient was counseled on refusal of Accu-Cheks and insulin. I have risk of developing DKA. -Hemoglobin A1c 6.8 indicating well controlled diabetes as patient was on insulin previously. -Refuses diabetic diet. Anemia of chronic disease -S/p pRBC transfusion with improved H/H. Hemoglobin stable at 9.5. -Stool occult blood positive 1. GI performed endoscopy which showed gastritis and esophageal ring status post dilatations and biopsy. Ok with GI for aspirin. Refused colonoscopy. -Continue to monitor. C. difficile colitis: -Completed Flagyl 07/06/16. -Monitor electrolytes DVT prophylaxis, SCD's and subcutaneous heparin, patient refusing heparin intermittently Discharge Planning Case management for discharge planning. Last documented evaluation with 07/07/16 and indicating patient be transferred to [facility]. 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 Patient will likely remain in hospital until completion of antibiotics on 07/27/16 Latrell Mcnair Jul 16, 2016 09:11
[2016-07-16 10:00] VITALS: O2SAT 98
[2016-07-16] MEDS: SIMETHICONE 80 MG CHEWABLE TAB CHEW PRN (13:07)
[2016-07-16 20:00] VITALS: BP 133/71; PULSE 95; RESP 24; TEMP 98.1; O2SAT 93
[2016-07-16 20:32] VITALS: O2SAT 97
[2016-07-17 08:00] VITALS: BP 129/76; PULSE 92; RESP 20; TEMP 97; O2SAT 95
[2016-07-17] MEDS: VORICONAZOLE 200 MG TAB PO SCH ×2 (08:12→22:31)
[2016-07-17] MEDS: LACTOBACILLUS ACIDOPHILUS TAB PO SCH ×3 (08:13→17:08)
[2016-07-17] MEDS: ASPIRIN 81 MG CHEW TAB CHEW SCH (08:13)
[2016-07-17] MEDS: METOPROLOL TARTRATE 50 MG TAB PO SCH ×2 (08:13→22:31)
[2016-07-17] MEDS: FUROSEMIDE 40 MG TAB PO SCH (08:13)
[2016-07-17] MEDS: ACETAMINOPHEN/HYDROcodone 325 MG/5 MG TAB PO PRN ×2 (08:13→17:09)
[2016-07-17] MEDS: POTASSIUM CHLORIDE 20 MEQ CONTROLLED RELEASE TAB PO SCH (08:13)
[2016-07-17] MEDS: LISINOPRIL 20 MG TAB PO SCH (08:13)
[2016-07-17] MEDS: PANTOPRAZOLE SOD 20 MG DELAYED RELEASE TAB PO SCH (08:13)
[2016-07-17] MEDS: POTASSIUM PHOSPHATE MONOBASIC 500 MG TAB PO SCH ×2 (08:13→22:31)
[2016-07-17] MEDS: BUDESONIDE-FORMOTEROL 160/4.5 MCG INHALER INH SCH ×2 (08:14→22:30)
[2016-07-17] MEDS: HEPARIN SODIUM - SQ 10,000 UNITS/ML VIAL SQ SCH ×2 (08:16→21:00)
--- NOTE | 2016-07-17 14:18 | HHI.PR ---
Subjective Remarks Patient seen and examined today. Patient had multiple questions concerning his treatment. He was no one a when they did the bronchoscopy they just could not have vacuumed out his infection. Patient concerned about clear rhinorrhea with nasal cannula oxygen. Patient still concerned about his deconditioning since being in the hospital. Objective Vitals Vital Signs Date Time Temp Pulse Resp B/P Pulse Ox O2 Delivery O2 Flow Rate FiO2 07/17/16 08:00 Nasal Cannula 2.00 07/17/16 08:00 97.0 92 20 129/76 95 07/16/16 20:32 97 Nasal Cannula 2.00 07/16/16 20:00 98.1 95 24 133/71 93 07/16/16 20:00 Nasal Cannula 2.00 07/16/16 19:28 16 I/O 07/16/16 07/16/16 07/16/16 07/17/16 07/17/16 07/17/16 07:00 15:00 23:00 07:00 15:00 23:00 Intake Total 240 ml 240 ml 480 ml 240 ml Balance 240 ml 240 ml 480 ml 240 ml Intake Oral 240 ml 240 ml 480 ml 240 ml # Voids 1 1 4 2 # Bowel Movements 0 0 1 0 Result Diagram: 07/16/16 0650 07/16/16 0650 Objective Remarks GENERAL: Well-developed, well-nourished, in no acute distress. alert and orientated HEENT: Head is normocephalic without any lesions or masses noted. Facial features are symmetric. Eyes: Extraocular muscles are intact. Conjunctivae were clear. NECK: Supple without any masses. Trachea midline no deviation. No JVD, CARDIAC: Regular rhythm, regular rate. S1/S2 are heard. No murmurs gallops or rubs. LUNGS: Clear to auscultation bilaterally. No wheeze, rhonchi or rales. No use of accessory muscles on inspiration or expiration. ABDOMEN: Soft, nontender. Nondistended. Bowel sounds heard in all 4 quadrants. No organomegaly or masses. Negative rebound, negative guarding EXTREMITIES: No edema, pulses are equal bilaterally. No cyanosis or clubbing NEUROLOGY: Mood and affect appear appropriate. Cranial nerves II through XII grossly intact. Moving all extremities, speech is clear Procedures Incision and drainage of right hand abscess Bronchoscopy EGD with dilatation Urinary Catheter: No Vascular Central Line Catheter: No A/P Assessment and Plan Community acquired pneumonia -Status post treatment with Zosyn and Levaquin. -Bronchial washings culture with Aspergillus niger, on Voriconazole since 06/27- treatment per ID; recommend at least 1 month of treatment. Voriconazole Stop date 07/27. -Call ID if acute issues develop. ID discussed with Dr. Jhaveri about need for outpt ID follow up. -07/14: LFTs reviewed and normal. Monitor periodically due to Variconazole use. -Per pulmonology, will need repeat CT of the chest without contrast in 2 weeks. Severe sepsis due to cellulitis of the right upper extremity/right olecranon bursitis now resolved. -Previous venous Doppler of the upper extremities with no DVT -US of the right upper extremity with a complex mass overlying the right third finger. S/p I/D of the right hand MRSA abscess and treatment with Vancomycin. -Evaluated by ortho and hand surgery; cleared by hand surgery. COPD exacerbation: still with dyspnea on exertion -Patient failed walk test recommended oxygen which he was on prior. -Pulmonology following. Continue O2, nebulizer as needed Pulmonary nodules -Status post bronchoscopy; negative cytology. Repeat CT in 2 months, follow-up with pulmonology as an outpatient. SVT: due to sepsis; s/p Cardizem. -S/p cardiology consultation. -Continue Beta rosy Ischemic cardiomyopathy -S/p stent placement 2001, follow-up angiogram no intervention needed per patient. -Elevated troponin likely due to presenting tachycardia/sepsis. -Echo with EF 35% cautious use of BB hx of COPD -Cardiology reconsulted on 06/05, nonsustained VT felt to be secondary to NAN . Information from Dr Vora shows ECHO May 2016 with normal EF and cath from 2014 (Apr per pt) with stable CAD. Elevated trop likely from sepsis -Continue on aspirin. Continue to monitor. -Continue Lisinopril -Refuses heart healthy diet Acute on chronic systolic CHF exacerbation -Continue Lasix and monitor electrolytes. Hypertension: Controlled. -Continue lisinopril and metoprolol Diabetes mellitus 2 with previous hypoglycemic episode -No further hypoglycemia. Blood glucose readings [id number] -Patient did not require insulin in over 5 days. Accu-Cheks and sliding so insulin was discontinued -Patient was counseled on refusal of Accu-Cheks and insulin. I have risk of developing DKA. -Hemoglobin A1c 6.8 indicating well controlled diabetes as patient was on insulin previously. -Refuses diabetic diet. Anemia of chronic disease -S/p pRBC transfusion with improved H/H. Hemoglobin stable at 9.5. -Stool occult blood positive 1. GI performed endoscopy which showed gastritis and esophageal ring status post dilatations and biopsy. Ok with GI for aspirin. Refused colonoscopy. -Continue to monitor. C. difficile colitis: -Completed Flagyl 07/06/16. -Monitor electrolytes DVT prophylaxis, SCD's and subcutaneous heparin, patient refusing heparin intermittently Discharge Planning Case management for discharge planning. Last documented evaluation with 07/07/16 and indicating patient be transferred to [facility]. 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 Patient will likely remain in hospital until completion of antibiotics on 07/27/16 Latrell Mcnair Jul 17, 2016 14:18
[2016-07-17 15:59] VITALS: O2SAT 93
[2016-07-17] MEDS: SIMETHICONE 80 MG CHEWABLE TAB CHEW PRN (17:09)
[2016-07-17 20:00] VITALS: BP 125/90; PULSE 92; RESP 18; TEMP 98; O2SAT 88
[2016-07-17 20:18] VITALS: O2SAT 93
[2016-07-17] MEDS: ZOLPIDEM TARTRATE 5 MG TAB PO PRN (22:58)
[2016-07-18 08:00] VITALS: BP 106/66; PULSE 89; RESP 18; TEMP 97.3; O2SAT 96
[2016-07-18] MEDS: VORICONAZOLE 200 MG TAB PO SCH ×2 (08:44→21:50)
[2016-07-18] MEDS: POTASSIUM CHLORIDE 20 MEQ CONTROLLED RELEASE TAB PO SCH (08:45)
[2016-07-18] MEDS: ASPIRIN 81 MG CHEW TAB CHEW SCH (08:45)
[2016-07-18] MEDS: LISINOPRIL 20 MG TAB PO SCH (08:45)
[2016-07-18] MEDS: POTASSIUM PHOSPHATE MONOBASIC 500 MG TAB PO SCH ×2 (08:46→21:50)
[2016-07-18] MEDS: PANTOPRAZOLE SOD 20 MG DELAYED RELEASE TAB PO SCH (08:46)
[2016-07-18] MEDS: FUROSEMIDE 40 MG TAB PO SCH (08:47)
[2016-07-18] MEDS: LACTOBACILLUS ACIDOPHILUS TAB PO SCH ×3 (08:47→17:03)
[2016-07-18] MEDS: METOPROLOL TARTRATE 50 MG TAB PO SCH ×2 (08:47→21:50)
[2016-07-18] MEDS: SIMETHICONE 80 MG CHEWABLE TAB CHEW PRN (08:54)
[2016-07-18] MEDS: ACETAMINOPHEN/HYDROcodone 325 MG/5 MG TAB PO PRN ×2 (08:55→17:04)
[2016-07-18] MEDS: BUDESONIDE-FORMOTEROL 160/4.5 MCG INHALER INH SCH ×2 (08:55→21:50)
[2016-07-18] MEDS: HEPARIN SODIUM - SQ 10,000 UNITS/ML VIAL SQ SCH ×2 (08:56→21:00)
--- NOTE | 2016-07-18 11:42 | HHI.PR ---
Subjective Remarks Patient seen and examined today. Patient denies any new complaints today. Patient was asleep upon entering the room. Objective Vitals Vital Signs Date Time Temp Pulse Resp B/P Pulse Ox O2 Delivery O2 Flow Rate FiO2 07/18/16 08:00 97.3 89 18 106/66 96 07/18/16 08:00 88 Nasal Cannula 2.00 07/17/16 20:18 93 Nasal Cannula 2.00 07/17/16 20:00 98.0 92 18 125/90 88 07/17/16 20:00 88 Nasal Cannula 2.00 07/17/16 15:59 93 Nasal Cannula 2.00 I/O 07/17/16 07/17/16 07/17/16 07/18/16 07/18/16 07/18/16 07:00 15:00 23:00 07:00 15:00 23:00 Intake Total 240 ml 900 ml 640 ml 640 ml Balance 240 ml 900 ml 640 ml 640 ml Intake Oral 240 ml 900 ml 640 ml 640 ml # Voids 2 5 3 # Bowel Movements 0 0 0 Result Diagram: 07/16/16 0650 07/16/16 0650 Objective Remarks GENERAL: Well-developed, well-nourished, in no acute distress. alert and orientated HEENT: Head is normocephalic without any lesions or masses noted. Facial features are symmetric. Eyes: Extraocular muscles are intact. Conjunctivae were clear. NECK: Supple without any masses. Trachea midline no deviation. No JVD, CARDIAC: Regular rhythm, regular rate. S1/S2 are heard. No murmurs gallops or rubs. LUNGS: Clear to auscultation bilaterally. No wheeze, rhonchi or rales. No use of accessory muscles on inspiration or expiration. ABDOMEN: Soft, nontender. Nondistended. Bowel sounds heard in all 4 quadrants. No organomegaly or masses. Negative rebound, negative guarding EXTREMITIES: No edema, pulses are equal bilaterally. No cyanosis or clubbing NEUROLOGY: Mood and affect appear appropriate. Cranial nerves II through XII grossly intact. Moving all extremities, speech is clear Procedures Incision and drainage of right hand abscess Bronchoscopy EGD with dilatation Urinary Catheter: No Vascular Central Line Catheter: No A/P Assessment and Plan Community acquired pneumonia -Status post treatment with Zosyn and Levaquin. -Bronchial washings culture with Aspergillus niger, on Voriconazole since 06/27- treatment per ID; recommend at least 1 month of treatment. Voriconazole Stop date 07/27. -Call ID if acute issues develop. ID discussed with Dr. Jhaveri about need for outpt ID follow up. -07/14: LFTs reviewed and normal. Monitor periodically due to Variconazole use. -Per pulmonology, will need repeat CT of the chest without contrast in 2 weeks. Severe sepsis due to cellulitis of the right upper extremity/right olecranon bursitis now resolved. -Previous venous Doppler of the upper extremities with no DVT -US of the right upper extremity with a complex mass overlying the right third finger. S/p I/D of the right hand MRSA abscess and treatment with Vancomycin. -Evaluated by ortho and hand surgery; cleared by hand surgery. COPD exacerbation: still with dyspnea on exertion -Patient failed walk test recommended oxygen which he was on prior. -Pulmonology following. Continue O2, nebulizer as needed Pulmonary nodules -Status post bronchoscopy; negative cytology. Repeat CT in 2 months, follow-up with pulmonology as an outpatient. SVT: due to sepsis; s/p Cardizem. -S/p cardiology consultation. -Continue Beta rosy Ischemic cardiomyopathy -S/p stent placement 2001, follow-up angiogram no intervention needed per patient. -Elevated troponin likely due to presenting tachycardia/sepsis. -Echo with EF 35% cautious use of BB hx of COPD -Cardiology reconsulted on 06/05, nonsustained VT felt to be secondary to NAN . Information from Dr Vora shows ECHO May 2016 with normal EF and cath from 2014 (Apr per pt) with stable CAD. Elevated trop likely from sepsis -Continue on aspirin. Continue to monitor. -Continue Lisinopril -Refuses heart healthy diet Acute on chronic systolic CHF exacerbation -Continue Lasix and monitor electrolytes. Hypertension: Controlled. -Continue lisinopril and metoprolol Diabetes mellitus 2 with previous hypoglycemic episode -No further hypoglycemia. Blood glucose readings [id number] -Patient did not require insulin in over 5 days. Accu-Cheks and sliding so insulin was discontinued -Patient was counseled on refusal of Accu-Cheks and insulin. I have risk of developing DKA. -Hemoglobin A1c 6.8 indicating well controlled diabetes as patient was on insulin previously. -Refuses diabetic diet. Anemia of chronic disease -S/p pRBC transfusion with improved H/H. Hemoglobin stable at 9.5. -Stool occult blood positive 1. GI performed endoscopy which showed gastritis and esophageal ring status post dilatations and biopsy. Ok with GI for aspirin. Refused colonoscopy. -Continue to monitor. C. difficile colitis: -Completed Flagyl 07/06/16. -Monitor electrolytes DVT prophylaxis, SCD's and subcutaneous heparin, patient refusing heparin intermittently Discharge Planning Case management for discharge planning. Last documented evaluation with 07/07/16 and indicating patient be transferred to [facility]. 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 Patient will likely remain in hospital until completion of antibiotics on 07/27/16 Latrell Mcnair Jul 18, 2016 11:42
[2016-07-18 20:00] VITALS: BP 106/59; PULSE 87; RESP 18; TEMP 98; O2SAT 95
[2016-07-18] MEDS: ZOLPIDEM TARTRATE 5 MG TAB PO PRN (21:51)
[2016-07-18 23:00] VITALS: O2SAT 96
[2016-07-19 08:00] VITALS: BP 111/55; PULSE 99; RESP 20; TEMP 98.2; O2SAT 96
[2016-07-19] MEDS: FUROSEMIDE 40 MG TAB PO SCH (08:52)
[2016-07-19] MEDS: ASPIRIN 81 MG CHEW TAB CHEW SCH (08:53)
[2016-07-19] MEDS: POTASSIUM CHLORIDE 20 MEQ CONTROLLED RELEASE TAB PO SCH (08:53)
[2016-07-19] MEDS: POTASSIUM PHOSPHATE MONOBASIC 500 MG TAB PO SCH ×2 (08:53→22:40)
[2016-07-19] MEDS: ALPRAZolam 0.25 MG TAB PO PRN (08:53)
[2016-07-19] MEDS: ACETAMINOPHEN/HYDROcodone 325 MG/5 MG TAB PO PRN ×2 (08:53→17:16)
[2016-07-19] MEDS: LACTOBACILLUS ACIDOPHILUS TAB PO SCH ×3 (08:53→17:16)
[2016-07-19] MEDS: VORICONAZOLE 200 MG TAB PO SCH ×2 (08:54→22:40)
[2016-07-19] MEDS: SIMETHICONE 80 MG CHEWABLE TAB CHEW PRN ×2 (08:54→17:17)
[2016-07-19] MEDS: PANTOPRAZOLE SOD 20 MG DELAYED RELEASE TAB PO SCH (08:54)
[2016-07-19] MEDS: METOPROLOL TARTRATE 50 MG TAB PO SCH ×2 (08:54→22:40)
[2016-07-19] MEDS: LISINOPRIL 20 MG TAB PO SCH (08:54)
[2016-07-19] MEDS: HEPARIN SODIUM - SQ 10,000 UNITS/ML VIAL SQ SCH ×2 (08:58→21:00)
[2016-07-19] MEDS: BUDESONIDE-FORMOTEROL 160/4.5 MCG INHALER INH SCH ×2 (08:58→22:42)
--- NOTE | 2016-07-19 13:43 | HHI.PR ---
Subjective Remarks Patient seen and examined today. Patient denies any new complaints. Patient still concerned that he is not getting better as quickly as he would like Objective Vitals Vital Signs Date Time Temp Pulse Resp B/P Pulse Ox O2 Delivery O2 Flow Rate FiO2 07/19/16 09:53 20 07/19/16 08:00 98.2 99 20 111/55 96 07/19/16 08:00 88 Nasal Cannula 2.00 07/18/16 23:00 96 Nasal Cannula 2.00 07/18/16 20:00 Nasal Cannula 2.00 07/18/16 20:00 98.0 87 18 106/59 95 I/O 07/18/16 07/18/16 07/18/16 07/19/16 07/19/16 07/19/16 07:00 15:00 23:00 07:00 15:00 23:00 Intake Total 640 ml 420 ml 600 ml 200 ml Balance 640 ml 420 ml 600 ml 200 ml Intake Oral 640 ml 420 ml 600 ml 200 ml # Voids 5 2 1 # Bowel Movements 0 0 Result Diagram: 07/16/16 0650 07/16/16 0650 Objective Remarks GENERAL: Well-developed, well-nourished, in no acute distress. alert and orientated HEENT: Head is normocephalic without any lesions or masses noted. Facial features are symmetric. Eyes: Extraocular muscles are intact. Conjunctivae were clear. NECK: Supple without any masses. Trachea midline no deviation. No JVD, CARDIAC: Regular rhythm, regular rate. S1/S2 are heard. No murmurs gallops or rubs. LUNGS: Clear to auscultation bilaterally. No wheeze, rhonchi or rales. No use of accessory muscles on inspiration or expiration. ABDOMEN: Soft, nontender. Nondistended. Bowel sounds heard in all 4 quadrants. No organomegaly or masses. Negative rebound, negative guarding EXTREMITIES: No edema, pulses are equal bilaterally. No cyanosis or clubbing NEUROLOGY: Mood and affect appear appropriate. Cranial nerves II through XII grossly intact. Moving all extremities, speech is clear Procedures Incision and drainage of right hand abscess Bronchoscopy EGD with dilatation Urinary Catheter: No Vascular Central Line Catheter: No A/P Assessment and Plan Community acquired pneumonia -Status post treatment with Zosyn and Levaquin. -Bronchial washings culture with Aspergillus niger, on Voriconazole since 06/27- treatment per ID; recommend at least 1 month of treatment. Voriconazole Stop date 07/27. -Call ID if acute issues develop. ID discussed with Dr. Jhaveri about need for outpt ID follow up. -07/14: LFTs reviewed and normal. Monitor periodically due to Variconazole use. -Per pulmonology, will need repeat CT of the chest without contrast in 2 weeks. Severe sepsis due to cellulitis of the right upper extremity/right olecranon bursitis now resolved. -Previous venous Doppler of the upper extremities with no DVT -US of the right upper extremity with a complex mass overlying the right third finger. S/p I/D of the right hand MRSA abscess and treatment with Vancomycin. -Evaluated by ortho and hand surgery; cleared by hand surgery. COPD exacerbation: still with dyspnea on exertion -Patient failed walk test recommended oxygen which he was on prior. -Pulmonology following. Continue O2, nebulizer as needed Pulmonary nodules -Status post bronchoscopy; negative cytology. Repeat CT in 2 months, follow-up with pulmonology as an outpatient. SVT: due to sepsis; s/p Cardizem. -S/p cardiology consultation. -Continue Beta rosy Ischemic cardiomyopathy -S/p stent placement 2001, follow-up angiogram no intervention needed per patient. -Elevated troponin likely due to presenting tachycardia/sepsis. -Echo with EF 35% cautious use of BB hx of COPD -Cardiology reconsulted on 06/05, nonsustained VT felt to be secondary to NAN . Information from Dr Vora shows ECHO May 2016 with normal EF and cath from 2014 (Apr per pt) with stable CAD. Elevated trop likely from sepsis -Continue on aspirin. Continue to monitor. -Continue Lisinopril -Refuses heart healthy diet Acute on chronic systolic CHF exacerbation -Continue Lasix and monitor electrolytes. Hypertension: Controlled. -Continue lisinopril and metoprolol Diabetes mellitus 2 with previous hypoglycemic episode -No further hypoglycemia. Blood glucose readings [id number] -Patient did not require insulin in over 5 days. Accu-Cheks and sliding so insulin was discontinued -Patient was counseled on refusal of Accu-Cheks and insulin. I have risk of developing DKA. -Hemoglobin A1c 6.8 indicating well controlled diabetes as patient was on insulin previously. -Refuses diabetic diet. Anemia of chronic disease -S/p pRBC transfusion with improved H/H. Hemoglobin stable at 9.5. -Stool occult blood positive 1. GI performed endoscopy which showed gastritis and esophageal ring status post dilatations and biopsy. Ok with GI for aspirin. Refused colonoscopy. -Continue to monitor. C. difficile colitis: -Completed Flagyl 07/06/16. -Monitor electrolytes DVT prophylaxis, SCD's and subcutaneous heparin, patient refusing heparin intermittently Discharge Planning Case management for discharge planning. Last documented evaluation with 07/07/16 and indicating patient be transferred to [facility]. 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 Patient will likely remain in hospital until completion of antibiotics on 07/27/16 Latrell Mcnair Jul 19, 2016 13:43
[2016-07-19 20:00] VITALS: BP 124/70; PULSE 94; RESP 20; TEMP 97.7; O2SAT 91
[2016-07-19 20:20] VITALS: O2SAT 95
[2016-07-19] MEDS: ZOLPIDEM TARTRATE 5 MG TAB PO PRN (22:40)
[2016-07-20 08:00] VITALS: BP 116/72; PULSE 84; RESP 20; TEMP 97.6; O2SAT 94
[2016-07-20 08:30] VITALS: O2SAT 94
[2016-07-20] MEDS: ASPIRIN 81 MG CHEW TAB CHEW SCH (08:44)
[2016-07-20] MEDS: VORICONAZOLE 200 MG TAB PO SCH ×2 (08:44→13:17)
[2016-07-20] MEDS: POTASSIUM PHOSPHATE MONOBASIC 500 MG TAB PO SCH ×2 (08:45→22:06)
[2016-07-20] MEDS: ACETAMINOPHEN/HYDROcodone 325 MG/5 MG TAB PO PRN ×2 (08:45→17:41)
[2016-07-20] MEDS: PANTOPRAZOLE SOD 20 MG DELAYED RELEASE TAB PO SCH (08:45)
[2016-07-20] MEDS: LISINOPRIL 20 MG TAB PO SCH (08:45)
[2016-07-20] MEDS: POTASSIUM CHLORIDE 20 MEQ CONTROLLED RELEASE TAB PO SCH (08:46)
[2016-07-20] MEDS: FUROSEMIDE 40 MG TAB PO SCH (08:46)
[2016-07-20] MEDS: METOPROLOL TARTRATE 50 MG TAB PO SCH ×2 (08:46→22:06)
[2016-07-20] MEDS: LACTOBACILLUS ACIDOPHILUS TAB PO SCH ×3 (08:46→17:30)
[2016-07-20] MEDS: BUDESONIDE-FORMOTEROL 160/4.5 MCG INHALER INH SCH ×2 (08:50→22:07)
[2016-07-20] MEDS: HEPARIN SODIUM - SQ 10,000 UNITS/ML VIAL SQ SCH ×2 (09:00→22:06)
[2016-07-20] MEDS: ALPRAZolam 0.25 MG TAB PO PRN ×2 (09:07→22:05)
--- NOTE | 2016-07-20 11:24 | HHI.PR ---
Subjective Remarks Patient seen and examined today. Patient states that he still very weak and very disappointed in his recovery Objective Vitals Vital Signs Date Time Temp Pulse Resp B/P Pulse Ox O2 Delivery O2 Flow Rate FiO2 07/20/16 09:45 20 07/20/16 08:00 88 Nasal Cannula 2.00 07/20/16 08:00 97.6 84 20 116/72 94 07/19/16 20:20 95 Nasal Cannula 2.00 07/19/16 20:00 97.7 94 20 124/70 91 07/19/16 20:00 Nasal Cannula 2.00 I/O 07/19/16 07/19/16 07/19/16 07/20/16 07/20/16 07/20/16 07:00 15:00 23:00 07:00 15:00 23:00 Intake Total 200 ml 320 ml 480 ml 240 ml Balance 200 ml 320 ml 480 ml 240 ml Intake Oral 200 ml 320 ml 480 ml 240 ml IV Total 0 ml 0 ml # Voids 1 2 2 1 # Bowel Movements 0 1 0 0 Result Diagram: 07/16/16 0650 07/16/16 0650 Objective Remarks GENERAL: Well-developed, well-nourished, in no acute distress. alert and orientated HEENT: Head is normocephalic without any lesions or masses noted. Facial features are symmetric. Eyes: Extraocular muscles are intact. Conjunctivae were clear. NECK: Supple without any masses. Trachea midline no deviation. No JVD, CARDIAC: Regular rhythm, regular rate. S1/S2 are heard. No murmurs gallops or rubs. LUNGS: Clear to auscultation bilaterally. No wheeze, rhonchi or rales. No use of accessory muscles on inspiration or expiration. ABDOMEN: Soft, nontender. Nondistended. Bowel sounds heard in all 4 quadrants. No organomegaly or masses. Negative rebound, negative guarding EXTREMITIES: No edema, pulses are equal bilaterally. No cyanosis or clubbing NEUROLOGY: Mood and affect appear appropriate. Cranial nerves II through XII grossly intact. Moving all extremities, speech is clear Procedures Incision and drainage of right hand abscess Bronchoscopy EGD with dilatation Urinary Catheter: No Vascular Central Line Catheter: No A/P Assessment and Plan Community acquired pneumonia -Status post treatment with Zosyn and Levaquin. -Bronchial washings culture with Aspergillus niger, on Voriconazole since 06/27- treatment per ID; recommend at least 1 month of treatment. Voriconazole Stop date 07/27. -Call ID if acute issues develop. ID discussed with Dr. Jhaveri about need for outpt ID follow up. -07/14: LFTs reviewed and normal. Monitor periodically due to Variconazole use. -Per pulmonology, will need repeat CT of the chest without contrast in 2 weeks. Severe sepsis due to cellulitis of the right upper extremity/right olecranon bursitis now resolved. -Previous venous Doppler of the upper extremities with no DVT -US of the right upper extremity with a complex mass overlying the right third finger. S/p I/D of the right hand MRSA abscess and treatment with Vancomycin. -Evaluated by ortho and hand surgery; cleared by hand surgery. COPD exacerbation: still with dyspnea on exertion -Patient failed walk test recommended oxygen which he was on prior. -Pulmonology following. Continue O2, nebulizer as needed Pulmonary nodules -Status post bronchoscopy; negative cytology. Repeat CT in 2 months, follow-up with pulmonology as an outpatient. SVT: due to sepsis; s/p Cardizem. -S/p cardiology consultation. -Continue Beta rosy Ischemic cardiomyopathy -S/p stent placement 2001, follow-up angiogram no intervention needed per patient. -Elevated troponin likely due to presenting tachycardia/sepsis. -Echo with EF 35% cautious use of BB hx of COPD -Cardiology reconsulted on 06/05, nonsustained VT felt to be secondary to NAN . Information from Dr Vora shows ECHO May 2016 with normal EF and cath from 2014 (Apr per pt) with stable CAD. Elevated trop likely from sepsis -Continue on aspirin. Continue to monitor. -Continue Lisinopril -Refuses heart healthy diet Acute on chronic systolic CHF exacerbation -Continue Lasix and monitor electrolytes. Hypertension: Controlled. -Continue lisinopril and metoprolol Diabetes mellitus 2 with previous hypoglycemic episode -No further hypoglycemia. Blood glucose readings [id number] -Patient did not require insulin in over 5 days. Accu-Cheks and sliding so insulin was discontinued -Patient was counseled on refusal of Accu-Cheks and insulin. I have risk of developing DKA. -Hemoglobin A1c 6.8 indicating well controlled diabetes as patient was on insulin previously. -Refuses diabetic diet. Anemia of chronic disease -S/p pRBC transfusion with improved H/H. Hemoglobin stable at 9.5. -Stool occult blood positive 1. GI performed endoscopy which showed gastritis and esophageal ring status post dilatations and biopsy. Ok with GI for aspirin. Refused colonoscopy. -Continue to monitor. C. difficile colitis: -Completed Flagyl 07/06/16. -Monitor electrolytes DVT prophylaxis, SCD's and subcutaneous heparin, patient refusing heparin intermittently Discharge Planning Case management for discharge planning. Last documented evaluation with and indicating patient cannot be placed because he is a registered offender. 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 Patient will likely remain in hospital until completion of antibiotics on 07/27/16 Latrell Mcnair Jul 20, 2016 11:24
[2016-07-20] MEDS: SIMETHICONE 80 MG CHEWABLE TAB CHEW PRN (17:40)
[2016-07-20 20:00] VITALS: BP 133/72; PULSE 86; RESP 23; TEMP 97.4; O2SAT 96
[2016-07-20 20:14] VITALS: O2SAT 94
[2016-07-20] MEDS: ZOLPIDEM TARTRATE 5 MG TAB PO PRN (22:14)
[2016-07-21 06:48] LABS: TOTAL BILIRUBIN ADULT 0.3 MG/DL (0.2-1.0)
[2016-07-21 06:51] LABS: INDIRECT BILIRUBIN 0.2 MG/DL (0.0-0.8)
[2016-07-21 08:00] VITALS: BP_SYST 113; BP_SYST 118; BP_DIAS 69; PULSE 66; PULSE 89; RESP 16; RESP 18; TEMP 96; TEMP 97.4; O2SAT 96; O2SAT 97
[2016-07-21] MEDS: HEPARIN SODIUM - SQ 10,000 UNITS/ML VIAL SQ SCH ×2 (09:00→21:00)
[2016-07-21] MEDS: LISINOPRIL 20 MG TAB PO SCH (09:38)
[2016-07-21] MEDS: LACTOBACILLUS ACIDOPHILUS TAB PO SCH ×3 (09:38→17:50)
[2016-07-21] MEDS: POTASSIUM PHOSPHATE MONOBASIC 500 MG TAB PO SCH ×2 (09:38→21:00)
[2016-07-21] MEDS: METOPROLOL TARTRATE 50 MG TAB PO SCH ×2 (09:39→22:17)
[2016-07-21] MEDS: VORICONAZOLE 200 MG TAB PO SCH ×2 (09:39→21:00)
[2016-07-21] MEDS: ACETAMINOPHEN/HYDROcodone 325 MG/5 MG TAB PO PRN ×2 (09:39→17:50)
[2016-07-21] MEDS: FUROSEMIDE 40 MG TAB PO SCH (09:39)
[2016-07-21] MEDS: PANTOPRAZOLE SOD 20 MG DELAYED RELEASE TAB PO SCH (09:39)
[2016-07-21] MEDS: POTASSIUM CHLORIDE 20 MEQ CONTROLLED RELEASE TAB PO SCH (09:39)
[2016-07-21] MEDS: ASPIRIN 81 MG CHEW TAB CHEW SCH (09:39)
[2016-07-21] MEDS: BUDESONIDE-FORMOTEROL 160/4.5 MCG INHALER INH SCH ×2 (09:42→21:25)
--- NOTE | 2016-07-21 10:56 | HHI.PR ---
Subjective Remarks Follow-up on patient was CAP. Patient seen and examined today. Continues to complain of slow progress and persistent weakness. Some cough with whitish sputum production overnight better today. No other acute complaints at this time. Objective Vitals Vital Signs Date Time Temp Pulse Resp B/P Pulse Ox O2 Delivery O2 Flow Rate FiO2 07/20/16 20:14 94 Nasal Cannula 2.00 07/20/16 20:00 94 Nasal Cannula 2.00 07/20/16 20:00 97.4 86 23 133/72 96 07/20/16 18:41 20 I/O 07/20/16 07/20/16 07/20/16 07/21/16 07/21/16 07/21/16 07:00 15:00 23:00 07:00 15:00 23:00 Intake Total 240 ml 600 ml 480 ml Balance 240 ml 600 ml 480 ml Intake Oral 240 ml 600 ml 480 ml IV Total 0 ml # Voids 1 3 2 2 # Bowel Movements 0 2 0 0 Objective Remarks GENERAL: Well-nourished, well-developed patient in NAD. Awake and alert. Utilizing nasal cannula supplemental oxygen. SKIN: Warm and dry. No rash. HEAD: Normocephalic. Atraumatic. EYES: EOMI. NECK: Supple. Trachea midline. CARDIOVASCULAR: Regular rate and rhythm. S1, S2 noted. No murmur appreciated. RESPIRATORY: No accessory muscle use. Clear to auscultation. Breath sounds equal bilaterally. GASTROINTESTINAL: Abdomen soft, non-tender, nondistended. Normoactive bowel sounds x4. MUSCULOSKELETAL: No obvious deformities. Extremities without clubbing, cyanosis , or edema. NEUROLOGICAL: Awake and alert. No obvious cranial nerve deficits. Motor grossly within normal limits. 5/5 muscle strength in bilateral upper and lower extremities. Normal speech. PSYCHIATRIC: Appropriate mood and affect; insight and judgment normal. Procedures Incision and drainage of right hand abscess Bronchoscopy EGD with dilatation Medications and IVs Current Medications Medications (Trade) Dose Ordered Sig/Mitchell Route Start Time Stop Time Status Last Admin (Tylenol) 650 mg Q4H PRN PO 06/05/16 15:45 06/21/16 01:23 (Aspirin Chew) 81 mg DAILY CHEW 06/06/16 09:00 07/21/16 09:39 (Symbicort 160-4.5 Inh) 2 puff BID INH 06/05/16 21:00 07/21/16 09:42 (Prinivil) 20 mg DAILY PO 06/06/16 09:00 07/21/16 09:38 (Xanax) 0.25 mg Q12HR PRN PO 06/06/16 13:00 07/20/16 22:05 (Ambien) 5 mg HS PRN PO 06/06/16 21:00 07/20/16 22:14 (Colace) 100 mg BID PRN PO 06/11/16 10:30 06/13/16 12:38 (Lactinex) 1 tab TID PO 06/21/16 13:00 07/21/16 09:38 (Lasix) 40 mg DAILY PO 06/22/16 09:00 07/21/16 09:39 (KCl) 20 meq DAILY PO 06/23/16 09:00 07/21/16 09:39 (K-Phos) 1,000 mg Q12HR PO 06/23/16 09:00 07/21/16 09:38 (Pill Splitter) 1 ea UNSCH PRN OTHER 06/26/16 08:30 (Lopressor) 50 mg Q12HR PO 06/27/16 09:00 07/21/16 09:39 (Heparin Inj) 5,000 units Q12HR SQ 06/27/16 11:00 07/20/16 22:06 Voriconazole 200 mg 200 mg Q12HR PO 06/27/16 15:33 07/21/16 09:39 ([facility]) 0 ml @ 0 mls/hr UNSCH OTHER 06/27/16 14:00 (Protonix) 20 mg DAILY PO 07/04/16 09:00 07/21/16 09:39 ([place] 5-325 Mg) 1 tab Q8HR PRN PO 07/15/16 22:00 07/21/16 09:39 (Mylicon Chew) 80 mg PCHS PRN CHEW 07/15/16 15:45 07/20/16 17:40 (Zofran Odt) 4 mg Q6H PRN PO 07/15/16 15:45 A/P Problem List: (1) SVT (supraventricular tachycardia) ICD Code: I47.1 Status: Resolved (2) Severe sepsis ICD Code: A41.9 Status: Resolved (3) COPD with acute exacerbation ICD Code: J44.1 Status: Acute (4) Sepsis ICD Code: A41.9 Status: Resolved (5) Cellulitis of right upper extremity ICD Code: L03.113 Status: Resolved (6) Abscess of hand, right ICD Code: L02.511 Status: Resolved (7) Olecranon bursitis, right elbow ICD Code: M70.21 Status: Resolved Assessment and Plan Community acquired pneumonia -Status post treatment with Zosyn and Levaquin. -Bronchial washings culture with Aspergillus niger, on Voriconazole since 06/27- treatment per ID; recommend at least 1 month of treatment. Voriconazole Stop date 07/27. -Call ID if acute issues develop. ID discussed with Dr. Jhaveri about need for outpt ID follow up. -07/14: LFTs reviewed and normal. Monitor periodically due to Voriconazole use. -Per pulmonology, will need repeat CT of the chest without contrast in 2 weeks - 07/28/16. Severe sepsis due to cellulitis of the right upper extremity/right olecranon bursitis now resolved. -Previous venous Doppler of the upper extremities with no DVT -US of the right upper extremity with a complex mass overlying the right third finger. S/p I/D of the right hand MRSA abscess and treatment with Vancomycin. -Evaluated by ortho and hand surgery; cleared by hand surgery. COPD and chronic bronchitis: still with dyspnea on exertion -Patient failed walk test recommended oxygen which he was utilizing at night prior to admission. -Pulmonology following. Continue O2 at 2L, nebulizer as needed Pulmonary nodules -Status post bronchoscopy; negative cytology. Repeat CT in 2 months, follow-up with pulmonology as an outpatient. SVT: due to sepsis; s/p Cardizem. -S/p cardiology consultation. -Continue Beta rosy Ischemic cardiomyopathy -S/p stent placement 2001, follow-up angiogram no intervention needed per patient. -Elevated troponin likely due to presenting tachycardia/sepsis. -Echo with EF 35% cautious use of BB hx of COPD -Cardiology reconsulted on 06/05, nonsustained VT felt to be secondary to NAN . Information from Dr Vora shows ECHO May 2016 with normal EF and cath from 2014 (Apr per pt) with stable CAD. Elevated trop likely from sepsis -Continue on aspirin. Continue to monitor. -Continue Lisinopril -Refuses heart healthy diet Acute on chronic systolic CHF exacerbation -Continue Lasix and monitor electrolytes. Hypertension: Controlled. -Continue lisinopril and metoprolol Diabetes mellitus 2 with previous hypoglycemic episode -No further hypoglycemia. Blood glucose readings [id number]. Not eating well. -Continue with bedside glucose checks at 7am. -Patient was counseled on refusal of Accu-Cheks and insulin with associated risk of developing DKA. Patient stated understanding. -Hemoglobin A1c 6.8 indicating well controlled diabetes as patient was on insulin previously. -Refuses diabetic diet. Anemia of chronic disease -S/p pRBC transfusion with improved H/H. Hemoglobin dropped from 9.5 to 8.9. Repeat CBC to monitor. -Stool occult blood positive 1. GI performed endoscopy which showed gastritis and esophageal ring status post dilatations and biopsy. Ok with GI for aspirin. Refused colonoscopy.. -Continue to monitor. C. difficile colitis: -Completed Flagyl 07/06/16. -Monitor electrolytes DVT prophylaxis, SCD's and subcutaneous heparin, patient refusing heparin intermittently Discharge Planning Case management for discharge planning. Last documented evaluation with and indicating patient cannot be placed because he is a registered offender. 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 Patient will likely remain in hospital until completion of antibiotics on 07/27/16. Patient previously living with a friend in [place] but he will be unable to return to his friend's home. Rosette Akers Jul 21, 2016 10:56
[2016-07-21 12:14] LABS: HEMATOCRIT 28.8 % (39.0-51.0); MEAN CELL VOLUME 85.2 FL (80.0-100.0); MEAN CORPUSCULAR HEMOGLOBIN 26.5 PG (27.0-34.0); MEAN CORPUSCULAR HGB CONC 31.1 % (32.0-36.0); PLATELET COUNT 208 TH/MM3 (150-450); RED BLOOD COUNT 3.38 MIL/MM3 (4.50-5.90); RED CELL DISTRIBUTION WIDTH 23.4 % (11.6-17.2); WHITE BLOOD COUNT 7.3 TH/MM3 (4.0-11.0)
[2016-07-21 12:26] LABS: POTASSIUM 4.3 MEQ/L (3.5-5.1)
[2016-07-21 12:28] LABS: BICARBONATE 29.8 MEQ/L (21.0-32.0); MAGNESIUM 1.7 MG/DL (1.5-2.5)
[2016-07-21 12:30] LABS: HEMO FLAGS AUTO DIFF
[2016-07-21 13:02] LABS: CORRECTED NUCLEATED RBC 1 /100 WBC (0-0); EOSINOPHILS 1 % (0-4); NEUTROPHIL # MANUAL DIFF 3.1 TH/MM3 (1.8-7.7); POLYS (SEG NEUTROPHILS) 43 % (16-70); TARGET CELLS 2+ (NORMAL); WBC DIFF SAMPLE 100
[2016-07-21 13:03] LABS: KERATOCYTES 1+ (NORMAL); OVALOCYTES 1+ (NORMAL); PLATELET ESTIMATE SMEAR NORMAL (NORMAL); PLATELET MORPHOLOGY NORMAL (NORMAL); SCAN/DIFF FINAL DIFF MANUAL
[2016-07-21] MEDS ORDERED: SODIUM CHLOR 0.9% 1000 ML INJ 1,000 ML IV SCH (14:15)
[2016-07-21] MEDS: SIMETHICONE 80 MG CHEWABLE TAB CHEW PRN (18:00)
[2016-07-21 20:00] VITALS: BP 127/67; PULSE 92; RESP 20; TEMP 97.3; O2SAT 88
[2016-07-21 20:29] VITALS: O2SAT 94
[2016-07-21] MEDS: RESP: ALBUTEROL 0.63 MG/3 ML NEB (PRN) NEB (20:29)
[2016-07-21] MEDS: ZOLPIDEM TARTRATE 5 MG TAB PO PRN (22:17)
[2016-07-22 06:08] LABS: POTASSIUM 4.1 MEQ/L (3.5-5.1)
[2016-07-22 06:11] LABS: BICARBONATE 27.4 MEQ/L (21.0-32.0)
[2016-07-22 08:00] VITALS: BP 116/68; PULSE 80; RESP 16; TEMP 97.8; O2SAT 96
[2016-07-22] MEDS: ACETAMINOPHEN/HYDROcodone 325 MG/5 MG TAB PO PRN ×3 (08:00→22:15)
[2016-07-22] MEDS: METOPROLOL TARTRATE 50 MG TAB PO SCH ×2 (08:48→20:49)
[2016-07-22] MEDS: LACTOBACILLUS ACIDOPHILUS TAB PO SCH ×3 (08:48→17:22)
[2016-07-22] MEDS: POTASSIUM PHOSPHATE MONOBASIC 500 MG TAB PO SCH ×2 (08:48→20:49)
[2016-07-22] MEDS: LISINOPRIL 20 MG TAB PO SCH (08:48)
[2016-07-22] MEDS: ASPIRIN 81 MG CHEW TAB CHEW SCH (08:48)
[2016-07-22] MEDS: FUROSEMIDE 20 MG TAB PO SCH (08:49)
[2016-07-22] MEDS: POTASSIUM CHLORIDE 10 MEQ CONTROLLED RELEASE TAB PO SCH (08:49)
[2016-07-22] MEDS: PANTOPRAZOLE SOD 20 MG DELAYED RELEASE TAB PO SCH (08:49)
[2016-07-22] MEDS: HEPARIN SODIUM - SQ 10,000 UNITS/ML VIAL SQ SCH ×2 (08:50→20:50)
[2016-07-22] MEDS: VORICONAZOLE 200 MG TAB PO SCH ×2 (08:50→20:49)
[2016-07-22] MEDS: BUDESONIDE-FORMOTEROL 160/4.5 MCG INHALER INH SCH ×2 (08:50→20:51)
--- NOTE | 2016-07-22 13:07 | HHI.PR ---
Subjective Remarks Follow-up for Aspergillus pneumonia. Patient states he feels nauseous from taking too many meds in the morning. He also was wondering when he is going to get better stating he still feels short of breath whether he wears the oxygen or not. The patient again was not wearing oxygen when I went to evaluate him. Patient again complains of having nosebleeds twice a day for the past 4 days. He complained of this to me over one week ago, and nasal saline was ordered but was discontinued. Patient did not desire humidified oxygen at that time. Objective Vitals Vital Signs Date Time Temp Pulse Resp B/P Pulse Ox O2 Delivery O2 Flow Rate FiO2 07/22/16 09:00 20 07/22/16 08:00 97.8 80 16 116/68 96 07/21/16 20:29 94 Nasal Cannula 2.00 07/21/16 20:00 94 Nasal Cannula 2.00 07/21/16 20:00 97.3 92 20 127/67 88 I/O 07/21/16 07/21/16 07/21/16 07/22/16 07/22/16 07/22/16 07:00 15:00 23:00 07:00 15:00 23:00 Intake Total 1357 ml 480 ml Balance 1357 ml 480 ml Intake Oral 1080 ml 480 ml IV Total 277 ml # Voids 2 5 2 # Bowel Movements 0 0 0 Result Diagram: 07/21/16 1130 07/22/16 0535 Objective Remarks GENERAL: Elderly well-nourished, well-developed patient in no apparent distress. ENT: No nasal bleeding. CARDIOVASCULAR: Regular rate and rhythm. RESPIRATORY: No accessory muscle use. NEUROLOGICAL: Awake and alert. Procedures Incision and drainage of right hand abscess Bronchoscopy EGD with dilatation Urinary Catheter: No Vascular Central Line Catheter: No A/P Problem List: (1) SVT (supraventricular tachycardia) ICD Code: I47.1 Status: Resolved (2) Severe sepsis ICD Code: A41.9 Status: Resolved (3) COPD with acute exacerbation ICD Code: J44.1 Status: Acute (4) Sepsis ICD Code: A41.9 Status: Resolved (5) Cellulitis of right upper extremity ICD Code: L03.113 Status: Resolved (6) Abscess of hand, right ICD Code: L02.511 Status: Resolved (7) Olecranon bursitis, right elbow ICD Code: M70.21 Status: Resolved Assessment and Plan Severe sepsis due to cellulitis of the right upper extremity/right olecranon bursitis now resolved. -Previous venous Doppler of the upper extremities with no DVT -US of the right upper extremity with a complex mass overlying the right third finger. S/p I/D of the right hand MRSA abscess and treatment with Vancomycin. -Evaluated by ortho and hand surgery; cleared by hand surgery. Community acquired pneumonia -Status post treatment with Zosyn and Levaquin. -Bronchial washings culture with Aspergillus niger, on Voriconazole since 06/27- treatment per ID; recommend at least 1 month of treatment. Voriconazole Stop date 07/27. -Call ID if acute issues develop. ID discussed with Dr. Jhaveri about need for outpt ID follow up. -07/14: LFTs reviewed and normal. Monitor periodically due to Variconazole use. -Per pulmonology, will need repeat CT of the chest without contrast on 07/28. COPD exacerbation: still with dyspnea on exertion -Patient failed walk test recommended oxygen which he was on prior. Continue O2 via [place]. -Pulmonology following. Per pulmonology, continue Duonebs bid; O2 at 2L; prednisone discontinued. Pulmonary nodules -Status post bronchoscopy; negative cytology. Repeat CT in 2 months, follow-up with pulmonology as an outpatient. SVT: due to sepsis; s/p Cardizem. -S/p cardiology consultation. -Continue Beta rosy Ischemic cardiomyopathy -S/p stent placement 2001, follow-up angiogram no intervention needed per patient. -Elevated troponin likely due to presenting tachycardia/sepsis. -Echo with EF 35% cautious use of BB hx of COPD -Cardiology reconsulted on 06/05, nonsustained VT felt to be secondary to NAN . Information from Dr Vora shows ECHO May 2016 with normal EF and cath from 2014 (Apr per pt) with stable CAD. Elevated trop likely from sepsis -Continue on aspirin. Continue to monitor. -Continue Lisinopril -Refuses heart healthy diet Acute on chronic systolic CHF exacerbation -Continue Lasix and monitor electrolytes. Hypertension: Controlled. -Continue lisinopril and metoprolol Diabetes mellitus 2 with previous hypoglycemic episode -No further hypoglycemia. Hyperglycemia secondary to steroids and noncompliance. -Patient refuses all long-acting insulin and also refuses blood glucose checks aside from once daily and SSI at that time if needed. He was extensively counseled on need for insulin if BGL's are elevated as he could be putting himself at risk of DKA if not appropriately treated. Patient was informed of symptoms of DKA and that it can lead to coma or ; he understands and is cognitively capable of refusing. He adamantly denies having diabetes. RN was present for conversation regarding this. -Hemoglobin A1c 6.8 indicating well controlled diabetes as patient was on insulin previously. -Refuses diabetic diet. Anemia of chronic disease -S/p pRBC transfusion with improved H/H. Hemoglobin stable at 9.5. -Stool occult blood positive 1. GI performed endoscopy which showed gastritis and esophageal ring status post dilatations and biopsy. Ok with GI for aspirin. Refused colonoscopy. -Continue to monitor. Dry eyes: Continue with eye lubricants. C. difficile colitis: -Completed Flagyl 07/06/16. -Monitor electrolytes Minor epistaxis with nose blowing: Likely attributed to dry nares. Patient refuses humidified oxygen as he states it causes him to have too much phlegm. Nasal saline ordered. DVT prophylaxis, SCD's and subcutaneous heparin Discharge Planning PT recommends home with outpatient PT/pulmonary rehab. Continue voriconazole by mouth until 07/27. Patient is homeless so cannot get oxygen unless he has a place to live. Cannot be placed in [facility] or SNF due to criminal background. Needs pulmonary follow-up for lung nodules. Case management following. Zoë Graham Jul 22, 2016 13:07
[2016-07-22] MEDS: SIMETHICONE 80 MG CHEWABLE TAB CHEW PRN ×2 (13:25→17:22)
[2016-07-22] MEDS: ALPRAZolam 0.25 MG TAB PO PRN (13:25)
[2016-07-22 20:00] VITALS: BP 134/74; PULSE 87; RESP 20; TEMP 97.3; O2SAT 96
[2016-07-22 20:07] VITALS: O2SAT 96
[2016-07-22] MEDS: RESP: ALBUTEROL 0.63 MG/3 ML NEB (PRN) NEB (20:07)
[2016-07-22] MEDS ORDERED: SODIUM CHLORIDE 0.65% NASAL SPRAY 45 ML BTL EACH NARE PRN (20:15)
[2016-07-22] MEDS: ZOLPIDEM TARTRATE 5 MG TAB PO PRN (20:49)
[2016-07-23 08:00] VITALS: BP 124/71; PULSE 90; RESP 17; TEMP 97.9; O2SAT 96
[2016-07-23] MEDS: VORICONAZOLE 200 MG TAB PO SCH ×2 (08:12→20:59)
[2016-07-23] MEDS: METOPROLOL TARTRATE 50 MG TAB PO SCH ×2 (08:12→20:58)
[2016-07-23] MEDS: FUROSEMIDE 20 MG TAB PO SCH (08:12)
[2016-07-23] MEDS: POTASSIUM PHOSPHATE MONOBASIC 500 MG TAB PO SCH ×2 (08:12→20:58)
[2016-07-23] MEDS: LACTOBACILLUS ACIDOPHILUS TAB PO SCH ×3 (08:13→17:13)
[2016-07-23] MEDS: LISINOPRIL 20 MG TAB PO SCH (08:13)
[2016-07-23] MEDS: ASPIRIN 81 MG CHEW TAB CHEW SCH (08:13)
[2016-07-23] MEDS: POTASSIUM CHLORIDE 10 MEQ CONTROLLED RELEASE TAB PO SCH (08:13)
[2016-07-23] MEDS: PANTOPRAZOLE SOD 20 MG DELAYED RELEASE TAB PO SCH (08:13)
[2016-07-23] MEDS: SIMETHICONE 80 MG CHEWABLE TAB CHEW PRN ×2 (08:13→14:03)
[2016-07-23] MEDS: ACETAMINOPHEN/HYDROcodone 325 MG/5 MG TAB PO PRN ×2 (08:13→20:57)
[2016-07-23] MEDS: BUDESONIDE-FORMOTEROL 160/4.5 MCG INHALER INH SCH ×2 (08:18→20:56)
[2016-07-23] MEDS: HEPARIN SODIUM - SQ 10,000 UNITS/ML VIAL SQ SCH ×2 (09:00→20:59)
[2016-07-23] MEDS: RESP: ALBUTEROL 0.63 MG/3 ML NEB (PRN) NEB (14:52)
[2016-07-23 14:54] VITALS: O2SAT 96
--- NOTE | 2016-07-23 14:54 | HHI.PR ---
Subjective Remarks Patient again complains of nosebleed but states he did not use the nasal spray. Also admits to left shoulder pain stating he had a fall in March and had 2 "chips". States that limited range of motion has been ongoing since that time. Objective Vitals Vital Signs Date Time Temp Pulse Resp B/P Pulse Ox O2 Delivery O2 Flow Rate FiO2 07/23/16 09:13 20 07/23/16 08:00 96 Nasal Cannula 2.00 07/23/16 08:00 97.9 90 17 124/71 96 07/22/16 20:07 96 Nasal Cannula 2.00 07/22/16 20:00 97.3 87 20 134/74 96 07/22/16 20:00 96 Nasal Cannula 2.00 I/O 07/22/16 07/22/16 07/22/16 07/23/16 07/23/16 07/23/16 07:00 15:00 23:00 07:00 15:00 23:00 Intake Total 480 ml 1380 ml 360 ml Balance 480 ml 1380 ml 360 ml Intake Oral 480 ml 1380 ml 360 ml # Voids 2 6 2 # Bowel Movements 0 0 0 Result Diagram: 07/21/16 1130 07/22/16 0535 Objective Remarks GENERAL: Elderly well-nourished, well-developed patient in no apparent distress. ENT: Mild epistaxis L naris. CARDIOVASCULAR: Regular rate and rhythm. RESPIRATORY: No accessory muscle use. Diminished breath sounds over the right base. MUSCULOSKELETAL: 2+ left distal radial pulse. Decreased active and passive flexion of the left shoulder and patient raises his shoulder in order to lift the arm. NEUROLOGICAL: Awake and alert. Procedures Incision and drainage of right hand abscess Bronchoscopy EGD with dilatation Urinary Catheter: No Vascular Central Line Catheter: No A/P Problem List: (1) SVT (supraventricular tachycardia) ICD Code: I47.1 Status: Resolved (2) Severe sepsis ICD Code: A41.9 Status: Resolved (3) COPD with acute exacerbation ICD Code: J44.1 Status: Acute (4) Sepsis ICD Code: A41.9 Status: Resolved (5) Cellulitis of right upper extremity ICD Code: L03.113 Status: Resolved (6) Abscess of hand, right ICD Code: L02.511 Status: Resolved (7) Olecranon bursitis, right elbow ICD Code: M70.21 Status: Resolved Assessment and Plan Severe sepsis due to cellulitis of the right upper extremity/right olecranon bursitis now resolved. -Previous venous Doppler of the upper extremities with no DVT -US of the right upper extremity with a complex mass overlying the right third finger. S/p I/D of the right hand MRSA abscess and treatment with Vancomycin. -Evaluated by ortho and hand surgery; cleared by hand surgery. Community acquired pneumonia -Status post treatment with Zosyn and Levaquin. -Bronchial washings culture with Aspergillus niger, on Voriconazole since 06/27- treatment per ID; recommend at least 1 month of treatment. Voriconazole Stop date 07/27. -Call ID if acute issues develop. ID discussed with Dr. Jhaveri about need for outpt ID follow up. -07/14: LFTs reviewed and normal. Monitor periodically due to Variconazole use. -Per pulmonology, will need repeat CT of the chest without contrast on 07/28. COPD exacerbation: still with dyspnea on exertion -Patient failed walk test recommended oxygen which he was on prior. Continue O2 via NC. -Pulmonology following. Per pulmonology, continue Duonebs bid; O2 at 2L; prednisone discontinued. Pulmonary nodules -Status post bronchoscopy; negative cytology. Repeat CT in 2 months, follow-up with pulmonology as an outpatient. SVT: due to sepsis; s/p Cardizem. -S/p cardiology consultation. -Continue Beta rosy Ischemic cardiomyopathy -S/p stent placement 2001, follow-up angiogram no intervention needed per patient. -Elevated troponin likely due to presenting tachycardia/sepsis. -Echo with EF 35% cautious use of BB hx of COPD -Cardiology reconsulted on 06/05, nonsustained VT felt to be secondary to NAN . Information from Dr Vora shows ECHO May 2016 with normal EF and cath from 2014 (Apr per pt) with stable CAD. Elevated trop likely from sepsis -Continue on aspirin. Continue to monitor. -Continue Lisinopril -Refuses heart healthy diet Acute on chronic systolic CHF exacerbation -Continue Lasix and monitor electrolytes. Hypertension: Controlled. -Continue lisinopril and metoprolol Diabetes mellitus 2 with previous hypoglycemic episode -No further hypoglycemia. Hyperglycemia secondary to steroids and noncompliance. -Patient refuses all long-acting insulin and also refuses blood glucose checks aside from once daily and SSI at that time if needed. He was extensively counseled on need for insulin if BGL's are elevated as he could be putting himself at risk of DKA if not appropriately treated. Patient was informed of symptoms of DKA and that it can lead to coma or ; he understands and is cognitively capable of refusing. He adamantly denies having diabetes. RN was present for conversation regarding this. -Hemoglobin A1c 6.8 indicating well controlled diabetes as patient was on insulin previously. -Refuses diabetic diet. Anemia of chronic disease -S/p pRBC transfusion with improved H/H. Hemoglobin stable at 9.5. -Stool occult blood positive 1. GI performed endoscopy which showed gastritis and esophageal ring status post dilatations and biopsy. Ok with GI for aspirin. Refused colonoscopy. -Continue to monitor. Dry eyes: Continue with eye lubricants. C. difficile colitis: -Completed Flagyl 07/06/16. -Monitor electrolytes Minor epistaxis with nose blowing: Likely attributed to dry nares. Patient refuses humidified oxygen as he states it causes him to have too much phlegm. Nasal saline ordered but patient still has not used. Platelets normal on last labs. Will repeat am CBC. L shoulder pain: chronic; likely rotator cuff injury. I spoke with PT to work with patient. Patient states he saw orthopedics in the past for this and x-rays were performed. No new injury. No x-rays needed. DVT prophylaxis, SCD's and subcutaneous heparin Discharge Planning PT recommends home with outpatient PT/pulmonary rehab. Continue voriconazole by mouth until 07/27. Patient is homeless so cannot get oxygen unless he has a place to live. Cannot be placed in [facility] or SNF due to criminal background. Needs pulmonary follow-up for lung nodules. Case management following. Zoë Graham Jul 23, 2016 14:54
[2016-07-23 20:00] VITALS: BP 152/74; PULSE 84; RESP 23; TEMP 97.3; O2SAT 96
[2016-07-23] MEDS: ZOLPIDEM TARTRATE 5 MG TAB PO PRN (22:44)
[2016-07-24 06:32] LABS: HEMATOCRIT 26.2 % (39.0-51.0); MEAN CELL VOLUME 85.2 FL (80.0-100.0); MEAN CORPUSCULAR HEMOGLOBIN 27.3 PG (27.0-34.0); PLATELET COUNT 209 TH/MM3 (150-450); RED BLOOD COUNT 3.08 MIL/MM3 (4.50-5.90); RED CELL DISTRIBUTION WIDTH 23.4 % (11.6-17.2); WHITE BLOOD COUNT 5.7 TH/MM3 (4.0-11.0)
[2016-07-24 06:40] LABS: HEMO FLAGS AUTO DIFF
[2016-07-24 06:58] LABS: BANDS 1 % (0-6); EOSINOPHILS 1 % (0-4); NEUTROPHIL # MANUAL DIFF 1.5 TH/MM3 (1.8-7.7); POLYS (SEG NEUTROPHILS) 26 % (16-70); SCAN/DIFF FINAL DIFF MANUAL; WBC DIFF SAMPLE 100
[2016-07-24 08:00] VITALS: BP 124/71; PULSE 77; RESP 19; TEMP 97.7; O2SAT 94
[2016-07-24] MEDS: POTASSIUM PHOSPHATE MONOBASIC 500 MG TAB PO SCH (09:00)
[2016-07-24] MEDS: ASPIRIN 81 MG CHEW TAB CHEW SCH ×2 (09:00→21:23)
[2016-07-24] MEDS: LACTOBACILLUS ACIDOPHILUS TAB PO SCH ×3 (09:00→18:00)
[2016-07-24] MEDS: HEPARIN SODIUM - SQ 10,000 UNITS/ML VIAL SQ SCH ×2 (09:00→21:00)
[2016-07-24] MEDS: BUDESONIDE-FORMOTEROL 160/4.5 MCG INHALER INH SCH ×2 (09:00→21:23)
[2016-07-24] MEDS: POTASSIUM CHLORIDE 10 MEQ CONTROLLED RELEASE TAB PO SCH (09:00)
[2016-07-24] MEDS: LISINOPRIL 20 MG TAB PO SCH ×2 (09:00→21:24)
[2016-07-24] MEDS: METOPROLOL TARTRATE 50 MG TAB PO SCH ×2 (09:52→21:23)
[2016-07-24] MEDS: ALPRAZolam 0.25 MG TAB PO PRN (09:52)
[2016-07-24] MEDS: ACETAMINOPHEN/HYDROcodone 325 MG/5 MG TAB PO PRN ×2 (09:53→21:26)
[2016-07-24] MEDS: PANTOPRAZOLE SOD 20 MG DELAYED RELEASE TAB PO SCH (09:53)
[2016-07-24] MEDS: FUROSEMIDE 20 MG TAB PO SCH (09:53)
[2016-07-24] MEDS: VORICONAZOLE 200 MG TAB PO SCH ×2 (09:54→21:23)
[2016-07-24] MEDS: SIMETHICONE 80 MG CHEWABLE TAB CHEW PRN (14:15)
[2016-07-24 16:15] VITALS: O2SAT 96
--- NOTE | 2016-07-24 18:34 | HHI.PR ---
Subjective Remarks Follow-up for Aspergillus pneumonia. The patient again complains that he was nauseous and nurse tells me that he refused several medications this morning. He denies any vomiting or diarrhea. He admits to subjective fevers when he gets nauseous. He states he was not able to use oxygen for large part of today. Admits to white sputum production but is less than before. Complains of his left shoulder pain again which is chronic since he had a fall a few months ago. He requests x-rays. Objective Vitals Vital Signs Date Time Temp Pulse Resp B/P Pulse Ox O2 Delivery O2 Flow Rate FiO2 07/24/16 16:15 96 21 07/24/16 15:37 96 Room Air 07/24/16 11:40 18 07/24/16 08:00 97.7 77 19 124/71 94 07/23/16 22:50 Nasal Cannula 2.00 07/23/16 20:00 97.3 84 23 152/74 96 07/23/16 20:00 96 Nasal Cannula 2.00 I/O 07/23/16 07/23/16 07/23/16 07/24/16 07/24/16 07/24/16 07:00 15:00 23:00 07:00 15:00 23:00 Intake Total 360 ml 240 ml 600 ml Balance 360 ml 240 ml 600 ml Intake Oral 360 ml 240 ml 600 ml # Voids 2 2 2 2 # Bowel Movements 0 1 0 Result Diagram: 07/24/16 0612 07/22/16 0535 Objective Remarks GENERAL: Elderly well-nourished, well-developed patient in no apparent distress. CARDIOVASCULAR: Regular rate and rhythm. RESPIRATORY: No accessory muscle use. CTAB. GASTROINTESTINAL: Soft, nontender, nondistended. NEUROLOGICAL: Awake and alert. Procedures Incision and drainage of right hand abscess Bronchoscopy EGD with dilatation Urinary Catheter: No Vascular Central Line Catheter: No A/P Problem List: (1) SVT (supraventricular tachycardia) ICD Code: I47.1 Status: Resolved (2) Severe sepsis ICD Code: A41.9 Status: Resolved (3) COPD with acute exacerbation ICD Code: J44.1 Status: Acute (4) Sepsis ICD Code: A41.9 Status: Resolved (5) Cellulitis of right upper extremity ICD Code: L03.113 Status: Resolved (6) Abscess of hand, right ICD Code: L02.511 Status: Resolved (7) Olecranon bursitis, right elbow ICD Code: M70.21 Status: Resolved Assessment and Plan Severe sepsis due to cellulitis of the right upper extremity/right olecranon bursitis now resolved. -Previous venous Doppler of the upper extremities with no DVT -US of the right upper extremity with a complex mass overlying the right third finger. S/p I/D of the right hand MRSA abscess and treatment with Vancomycin. -Evaluated by ortho and hand surgery; cleared by hand surgery. Community acquired pneumonia -Status post treatment with Zosyn and Levaquin. -Bronchial washings culture with Aspergillus niger, on Voriconazole since 06/27- treatment per ID; recommend at least 1 month of treatment. Voriconazole Stop date 07/27. -Call ID if acute issues develop. ID discussed with Dr. Jhaveri about need for outpt ID follow up. -07/14: LFTs reviewed and normal. Monitor periodically due to Variconazole use. -Per pulmonology, will need repeat CT of the chest without contrast on 07/28. COPD exacerbation: still with dyspnea on exertion -Patient failed walk test recommended oxygen which he was on prior. Continue O2 via NC. -Pulmonology following. Per pulmonology, continue Duonebs bid; O2 at 2L; prednisone discontinued. Pulmonary nodules -Status post bronchoscopy; negative cytology. Repeat CT in 2 months, follow-up with pulmonology as an outpatient. SVT: due to sepsis; s/p Cardizem. -S/p cardiology consultation. -Continue Beta rosy Ischemic cardiomyopathy -S/p stent placement 2001, follow-up angiogram no intervention needed per patient. -Elevated troponin likely due to presenting tachycardia/sepsis. -Echo with EF 35% cautious use of BB hx of COPD -Cardiology reconsulted on 06/05, nonsustained VT felt to be secondary to NAN . Information from Dr Vora shows ECHO May 2016 with normal EF and cath from 2014 (Apr per pt) with stable CAD. Elevated trop likely from sepsis -Continue on aspirin. Continue to monitor. -Continue Lisinopril -Refuses heart healthy diet Acute on chronic systolic CHF exacerbation -Continue Lasix and monitor electrolytes. Hypertension: Controlled. -Continue lisinopril and metoprolol Diabetes mellitus 2 with previous hypoglycemic episode -No further hypoglycemia. Hyperglycemia secondary to steroids and noncompliance. -Patient refuses all long-acting insulin and also refuses blood glucose checks aside from once daily and SSI at that time if needed. He was extensively counseled on need for insulin if BGL's are elevated as he could be putting himself at risk of DKA if not appropriately treated. Patient was informed of symptoms of DKA and that it can lead to coma or ; he understands and is cognitively capable of refusing. He adamantly denies having diabetes. RN was present for conversation regarding this. -Hemoglobin A1c 6.8 indicating well controlled diabetes as patient was on insulin previously. -Refuses diabetic diet. Anemia of chronic disease -S/p pRBC transfusion with improved H/H. Hemoglobin stable at 9.5. -Stool occult blood positive 1. GI performed endoscopy which showed gastritis and esophageal ring status post dilatations and biopsy. Ok with GI for aspirin. Refused colonoscopy. -Continue to monitor. Dry eyes: Continue with eye lubricants. C. difficile colitis: -Completed Flagyl 07/06/16. -Monitor electrolytes Minor epistaxis with nose blowing: Likely attributed to dry nares. Patient refuses humidified oxygen as he states it causes him to have too much phlegm. Nasal saline ordered but patient still has not used. CBC today reviewed with stable hemoglobin of 8.4. Platelets stable at 209. No bleeding evident on exam today. L shoulder pain: chronic; likely rotator cuff injury. I spoke with PT to work with patient. Patient states he saw orthopedics in the past for this and x-rays were performed. No new injury. No x-rays needed. I again explained to the patient today that he likely has a rotator cuff injury and new x-rays are not going to be helpful. He is advised that he will likely need an outpatient MRI with orthopedics. Medication non-compliance: Patient refused several medications this morning due to nausea related to taking so many at one time. I have switched his aspirin and lisinopril to nighttime. I discontinued the potassium phosphate which he has been on for one month and is not necessary at this time. Hopefully patient' s compliance will improve with regimen adjustment. DVT prophylaxis, SCD's and subcutaneous heparin. Patient refused heparin. Discharge Planning PT recommends home with outpatient PT/pulmonary rehab. Continue voriconazole by mouth until 07/27. Patient is homeless so cannot get oxygen unless he has a place to live. Cannot be placed in [facility] or SNF due to criminal background. Needs pulmonary follow-up for lung nodules. Case management following. Attending Statement Patient seen. Agree with above. Zoë Graham Jul 24, 2016 18:34 Latrell Marc MD Jul 25, 2016 07:23
[2016-07-24 19:32] VITALS: O2SAT 96
[2016-07-24 20:00] VITALS: BP 135/74; PULSE 75; RESP 22; TEMP 96.5; O2SAT 91
[2016-07-24] MEDS: ZOLPIDEM TARTRATE 5 MG TAB PO PRN (21:23)
[2016-07-25 08:00] VITALS: O2SAT 96
[2016-07-25] MEDS: METOPROLOL TARTRATE 50 MG TAB PO SCH ×2 (09:00→20:59)
[2016-07-25] MEDS: HEPARIN SODIUM - SQ 10,000 UNITS/ML VIAL SQ SCH ×2 (09:00→20:59)
[2016-07-25] MEDS: BUDESONIDE-FORMOTEROL 160/4.5 MCG INHALER INH SCH ×2 (09:00→20:59)
[2016-07-25] MEDS: ASPIRIN 81 MG CHEW TAB CHEW SCH ×2 (09:00→20:58)
[2016-07-25] MEDS: POTASSIUM CHLORIDE 10 MEQ CONTROLLED RELEASE TAB PO SCH (09:00)
[2016-07-25] MEDS: LACTOBACILLUS ACIDOPHILUS TAB PO SCH ×3 (09:59→18:06)
[2016-07-25] MEDS: FUROSEMIDE 20 MG TAB PO SCH (09:59)
[2016-07-25] MEDS: PANTOPRAZOLE SOD 20 MG DELAYED RELEASE TAB PO SCH (10:00)
[2016-07-25] MEDS: LISINOPRIL 20 MG TAB PO SCH (10:01)
[2016-07-25] MEDS: VORICONAZOLE 200 MG TAB PO SCH ×2 (10:02→20:58)
[2016-07-25] MEDS: ACETAMINOPHEN/HYDROcodone 325 MG/5 MG TAB PO PRN (10:08)
[2016-07-25 10:12] VITALS: BP 112/69; PULSE 85; RESP 20; TEMP 96.8; O2SAT 96
[2016-07-25 14:32] VITALS: BP_SYST 102; BP_SYST 114; BP_SYST 98; BP_DIAS 60; BP_DIAS 62; BP_DIAS 64; PULSE 98; RESP 16; TEMP 96; O2SAT 96
[2016-07-25 14:32] LABS: AUTOMATED NEUTROPHIL # 2.7 TH/MM3 (1.8-7.7); BASOPHIL % 0.5 % (0.0-2.0); EOSINOPHIL # 0.1 TH/MM3 (0-0.4); EOSINOPHIL % 0.8 % (0.0-4.0); HEMATOCRIT 30.1 % (39.0-51.0); HEMO FLAGS DIFF FINAL; LYMPH % 52.3 % (9.0-44.0); LYMPHOCYTE # 3.7 TH/MM3 (1.0-4.8); MEAN CELL VOLUME 85.5 FL (80.0-100.0); MEAN CORPUSCULAR HGB CONC 31.5 % (32.0-36.0); MONO % 8.4 % (0.0-8.0); PLATELET COUNT 220 TH/MM3 (150-450); RED BLOOD COUNT 3.53 MIL/MM3 (4.50-5.90); RED CELL DISTRIBUTION WIDTH 23.8 % (11.6-17.2); WHITE BLOOD COUNT 7.1 TH/MM3 (4.0-11.0)
--- NOTE | 2016-07-25 14:34 | HHI.PR ---
Subjective Remarks Follow-up for Aspergillus pneumonia. Patient stated he felt dizzy and lightheaded on and off for one hour and states he was sweating feeling like he had a fever when he was eating. He denies any worsening cough or shortness of breath. Denies any chest pain. Denies any vomiting, melena, or hematochezia. Objective Vitals Vital Signs Date Time Temp Pulse Resp B/P Pulse Ox O2 Delivery O2 Flow Rate FiO2 07/25/16 11:08 18 07/25/16 10:12 96.8 85 20 112/69 96 07/25/16 08:00 Nasal Cannula 2.00 07/24/16 20:00 96 Nasal Cannula 2.00 07/24/16 20:00 96.5 75 22 135/74 91 07/24/16 19:32 96 07/24/16 16:15 96 21 07/24/16 15:37 96 Room Air I/O 07/24/16 07/24/16 07/24/16 07/25/16 07/25/16 07/25/16 06:59 14:59 22:59 06:59 14:59 22:59 Intake Total 600 ml 480 ml 220 ml Balance 600 ml 480 ml 220 ml Intake Oral 600 ml 480 ml 220 ml # Voids 2 2 2 1 # Bowel Movements 0 1 0 Result Diagram: 07/25/16 1421 07/22/16 0535 Objective Remarks GENERAL: Elderly well-nourished, well-developed patient in no apparent distress. CARDIOVASCULAR: Regular rate and rhythm. RESPIRATORY: No accessory muscle use. Clear but diminished over anterior chest bilaterally. GASTROINTESTINAL: Normoactive bowel sounds. Abdomen soft, nontender, nondistended. NEUROLOGICAL: Awake and alert. PSYCHIATRIC: Normal mood and affect. Procedures Incision and drainage of right hand abscess Bronchoscopy EGD with dilatation Urinary Catheter: No Vascular Central Line Catheter: No A/P Problem List: (1) SVT (supraventricular tachycardia) ICD Code: I47.1 Status: Resolved (2) Severe sepsis ICD Code: A41.9 Status: Resolved (3) COPD with acute exacerbation ICD Code: J44.1 Status: Acute (4) Sepsis ICD Code: A41.9 Status: Resolved (5) Cellulitis of right upper extremity ICD Code: L03.113 Status: Resolved (6) Abscess of hand, right ICD Code: L02.511 Status: Resolved (7) Olecranon bursitis, right elbow ICD Code: M70.21 Status: Resolved (8) Dizziness ICD Code: R42 Status: Acute (9) Hypokalemia ICD Code: E87.6 Status: Acute Assessment and Plan Acute dizziness: Likely attributed to receiving lisinopril too early today. Medication was changed to nighttime yesterday but apparently patient also received this morning. Orthostatics performed. Patient was hypotensive. I have clarified Lisinopril order with pharmacist, changed to daily qhs to start tomorrow night. Will monitor BP. CBC with improved hemoglobin. BUN improved. Discussed with Dr. Marc. Hypokalemia: Mild 3.4. Patient refused his scheduled KCl 2 days in a row. -Order 40 mEq by mouth KCl now. -Repeat am BMP. Severe sepsis due to cellulitis of the right upper extremity/right olecranon bursitis now resolved. -Previous venous Doppler of the upper extremities with no DVT -US of the right upper extremity with a complex mass overlying the right third finger. S/p I/D of the right hand MRSA abscess and treatment with Vancomycin. -Evaluated by ortho and hand surgery; cleared by hand surgery. Community acquired pneumonia -Status post treatment with Zosyn and Levaquin. -Bronchial washings culture with Aspergillus niger, on Voriconazole since 06/27- treatment per ID; recommend at least 1 month of treatment. Voriconazole Stop date 07/27. -Call ID if acute issues develop. ID discussed with Dr. Jhaveri about need for outpt ID follow up. -07/14: LFTs reviewed and normal. Monitor periodically due to Variconazole use. -Per pulmonology, will need repeat CT of the chest without contrast on 07/28. COPD exacerbation: still with dyspnea on exertion -Patient failed walk test recommended oxygen which he was on prior. Continue O2 via NC. -Pulmonology following. Per pulmonology, continue Duonebs bid; O2 at 2L; prednisone discontinued. Pulmonary nodules -Status post bronchoscopy; negative cytology. Repeat CT in 2 months, follow-up with pulmonology as an outpatient. SVT: due to sepsis; s/p Cardizem. -S/p cardiology consultation. -Continue Beta rosy Ischemic cardiomyopathy -S/p stent placement 2001, follow-up angiogram no intervention needed per patient. -Elevated troponin likely due to presenting tachycardia/sepsis. -Echo with EF 35% cautious use of BB hx of COPD -Cardiology reconsulted on 06/05, nonsustained VT felt to be secondary to NAN . Information from Dr Vora shows ECHO May 2016 with normal EF and cath from 2014 (Dec per pt) with stable CAD. Elevated trop likely from sepsis -Continue on aspirin. Continue to monitor. -Continue Lisinopril -Refuses heart healthy diet Acute on chronic systolic CHF exacerbation -Continue Lasix and monitor electrolytes. Hypertension: Controlled. -Continue lisinopril and metoprolol Diabetes mellitus 2 with previous hypoglycemic episode -No further hypoglycemia. Hyperglycemia secondary to steroids and noncompliance. -Patient refuses all long-acting insulin and also refuses blood glucose checks aside from once daily and SSI at that time if needed. He was extensively counseled on need for insulin if BGL's are elevated as he could be putting himself at risk of DKA if not appropriately treated. Patient was informed of symptoms of DKA and that it can lead to coma or ; he understands and is cognitively capable of refusing. He adamantly denies having diabetes. RN was present for conversation regarding this. -Hemoglobin A1c 6.8 indicating well controlled diabetes as patient was on insulin previously. -Refuses diabetic diet. Anemia of chronic disease -S/p pRBC transfusion with improved H/H. Hemoglobin stable at 9.5. -Stool occult blood positive 1. GI performed endoscopy which showed gastritis and esophageal ring status post dilatations and biopsy. Ok with GI for aspirin. Refused colonoscopy. -Continue to monitor. Dry eyes: Continue with eye lubricants. C. difficile colitis: -Completed Flagyl 07/06/16. -Monitor electrolytes Minor epistaxis with nose blowing: Likely attributed to dry nares. Patient refuses humidified oxygen as he states it causes him to have too much phlegm. Nasal saline ordered. CBC today reviewed with stable hemoglobin of 9.5. Platelets stable at 220. L shoulder pain: chronic; likely rotator cuff injury. I spoke with PT to work with patient. Patient states he saw orthopedics in the past for this and x-rays were performed. No new injury. No x-rays needed. I again explained to the patient today that he likely has a rotator cuff injury and new x-rays are not going to be helpful. He is advised that he will likely need an outpatient MRI with orthopedics. Medication non-compliance: Patient refused several medications due to nausea related to taking so many at one time. I switched his aspirin and lisinopril to nighttime. I discontinued the potassium phosphate which he has been on for one month and is not necessary at this time. Hopefully patient's compliance will improve now. DVT prophylaxis, SCD's and subcutaneous heparin. Patient refused heparin. Discharge Planning PT recommends home with outpatient PT/pulmonary rehab. Continue voriconazole by mouth until 07/27. Patient is homeless so cannot get oxygen unless he has a place to live. Cannot be placed in [facility] or SNF due to criminal background. Needs pulmonary follow-up for lung nodules. Case management following. Attending Statement Patient seen. Agree with above. Zoë Graham Jul 25, 2016 14:34 Latrell Marc MD Jul 26, 2016 07:55
[2016-07-25 14:37] LABS: POTASSIUM 3.4 MEQ/L (3.5-5.1)
[2016-07-25 14:40] LABS: BICARBONATE 26.2 MEQ/L (21.0-32.0)
[2016-07-25 20:00] VITALS: BP 123/71; PULSE 105; RESP 20; TEMP 97.9; O2SAT 94
[2016-07-25] MEDS ORDERED: POTASSIUM CHLORIDE 20 MEQ CONTROLLED RELEASE TAB PO ONE (20:00)
[2016-07-25] MEDS ORDERED: ASPIRIN 81 MG CHEW TAB CHEW SCH (21:00)
[2016-07-25] MEDS: ZOLPIDEM TARTRATE 5 MG TAB PO PRN (21:07)
[2016-07-25] MEDS: SIMETHICONE 80 MG CHEWABLE TAB CHEW PRN (21:07)
--- NOTE | 2016-07-26 07:16 | RADHPO ---
EXAM DATE/TIME: 07/26/2016 06:35 [facility] COMPARISON: CT THORAX W/O CONTRAST, June 16, 2016, 21:53. INDICATIONS : Aspergillus infection. RADIATION DOSE: 8.93 CTDIvol (mGy) MEDICAL HISTORY : Aneurysm, abdominal. Chronic obstructive pulmonary disease. Carcinoma, bladder. Myocardial infarction. SURGICAL HISTORY : Coronary artery stent. ENCOUNTER: Subsequent ACUITY: 3 weeks PAIN SCALE: 0/10 LOCATION: chest TECHNIQUE: Volumetric scanning of the chest was performed. Using automated exposure control and adjustment of the mA and/or kV according to patient size, radiation dose was kept as low as reasonab ly achievable to obtain optimal diagnostic quality images. FINDINGS: LUNGS: The lungs demonstrate progressive worsening airspace disease involving predominantly the l eft lower lobe with diffuse area of tree in bud opacity and more confluent airspace consolidation chantal ntified within a subpleural distribution consistent with a component of atelectasis. There is a new i rregular masslike area of confluent air space density involving the basilar aspect of the right upper lobe abutting the pleura measuring 1.9 cm. There are scattered areas of nodular tree in bud opacity identified within the left upper lobe and to a lesser extent within the right middle. Given this sully wes this is consistent with worsening infection. The previously noted pleural effusion has decreased in size with no appreciable fluid identified on the current exam. PLEURAE: There is no pleural thickening or pleural effusion. MEDIASTINUM: The heart and great vessels demonstrate no acute abnormality. There is no mediastin al or hilar lymphadenopathy. Stable severe coronary artery disease. AXILLAE: Within normal limits. No lymphadenopathy. MUSCULOSKELETAL: Within normal limits for patient age. MISCELLANEOUS: The visualized upper abdominal organs demonstrate no acute abnormality. 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 Angelina Griffin MD on July 26, 2016 at 7:08 Board Certified Radiologist. This report was verified electronically.
[2016-07-26 08:00] VITALS: BP 118/54; PULSE 88; RESP 20; TEMP 96.8; O2SAT 96
[2016-07-26] MEDS: HEPARIN SODIUM - SQ 10,000 UNITS/ML VIAL SQ SCH ×2 (09:00→21:00)
[2016-07-26 09:42] LABS: POTASSIUM 4.2 MEQ/L (3.5-5.1)
[2016-07-26] MEDS: LACTOBACILLUS ACIDOPHILUS TAB PO SCH ×3 (10:23→18:44)
[2016-07-26] MEDS: FUROSEMIDE 20 MG TAB PO SCH (10:23)
[2016-07-26] MEDS: VORICONAZOLE 200 MG TAB PO SCH ×2 (10:23→22:39)
[2016-07-26] MEDS: POTASSIUM CHLORIDE 10 MEQ CONTROLLED RELEASE TAB PO SCH (10:24)
[2016-07-26] MEDS: PANTOPRAZOLE SOD 20 MG DELAYED RELEASE TAB PO SCH (10:24)
[2016-07-26] MEDS: METOPROLOL TARTRATE 50 MG TAB PO SCH ×2 (10:26→22:39)
[2016-07-26] MEDS: BUDESONIDE-FORMOTEROL 160/4.5 MCG INHALER INH SCH ×2 (10:27→22:40)
--- NOTE | 2016-07-26 12:30 | HHI.PR ---
Subjective Remarks Follow-up for Aspergillus pneumonia. Patient denies any fevers or chills. Denies any worsening cough. Denies any worsening shortness of breath initially but then states he's relying on his oxygen more. The patient is supposed be wearing his oxygen at all times but frequently does not wear it and tolerates it well, but states he now needs it. Objective Vitals Vital Signs Date Time Temp Pulse Resp B/P Pulse Ox O2 Delivery O2 Flow Rate FiO2 07/26/16 08:00 96.8 88 20 118/54 96 07/26/16 02:13 2.00 07/25/16 20:00 Nasal Cannula 2.00 07/25/16 20:00 97.9 105 20 123/71 94 07/25/16 14:32 96.0 98 16 102/60 96 114/62 98/64 I/O 07/25/16 07/25/16 07/25/16 07/26/16 07/26/16 07/26/16 07:00 15:00 23:00 07:00 15:00 23:00 Intake Total 220 ml 480 ml 480 ml 240 ml Balance 220 ml 480 ml 480 ml 240 ml Intake Oral 220 ml 480 ml 480 ml 240 ml # Voids 1 2 2 1 # Bowel Movements 0 1 0 0 Result Diagram: 07/25/16 1421 07/26/16 0817 Objective Remarks GENERAL: Elderly well-nourished, well-developed patient in no apparent distress. CARDIOVASCULAR: Regular rate and rhythm. RESPIRATORY: No accessory muscle use. Clear but diminished breath sounds. GASTROINTESTINAL: Abdomen soft, nontender, nondistended. NEUROLOGICAL: Awake and alert. PSYCHIATRIC: Depressed mood and affect. Procedures Incision and drainage of right hand abscess Bronchoscopy EGD with dilatation Urinary Catheter: No Vascular Central Line Catheter: No A/P Problem List: (1) SVT (supraventricular tachycardia) ICD Code: I47.1 Status: Resolved (2) Severe sepsis ICD Code: A41.9 Status: Resolved (3) COPD with acute exacerbation ICD Code: J44.1 Status: Acute (4) Sepsis ICD Code: A41.9 Status: Resolved (5) Cellulitis of right upper extremity ICD Code: L03.113 Status: Resolved (6) Abscess of hand, right ICD Code: L02.511 Status: Resolved (7) Olecranon bursitis, right elbow ICD Code: M70.21 Status: Resolved (8) Dizziness ICD Code: R42 Status: Acute (9) Hypokalemia ICD Code: E87.6 Status: Acute Assessment and Plan 07/25 Acute dizziness: Likely attributed to receiving lisinopril too early. Medication was changed to nighttime yesterday but apparently patient also received in the morning. Orthostatics performed. Patient was hypotensive. I have clarified Lisinopril order with pharmacist, changed to daily qhs to start tomorrow night. Will monitor BP. CBC with improved hemoglobin. BUN improved. Discussed with Dr. Marc. Hypokalemia: Resolved. Due to refusing his scheduled KCl 2 days in a row. 3.4--> 4.2 today s/p repletion. Severe sepsis due to cellulitis of the right upper extremity/right olecranon bursitis now resolved. -Previous venous Doppler of the upper extremities with no DVT -US of the right upper extremity with a complex mass overlying the right third finger. S/p I/D of the right hand MRSA abscess and treatment with Vancomycin. -Evaluated by ortho and hand surgery; cleared by hand surgery. Community acquired pneumonia: Worsening -Status post treatment with Zosyn and Levaquin. -Bronchial washings culture with Aspergillus niger, on Voriconazole since 06/27- treatment per ID; patient has been on Voriconazole for ~1 month. -Call ID if acute issues develop. ID discussed with Dr. Jhaveri about need for outpt ID follow up. -07/14: LFTs reviewed and normal. Monitor periodically due to Variconazole use. -07/26: Per pulmonology, repeat CT was ordered. CT performed today and personally interpreted and compared to prior with resolution of L sided effusion ; progressive worsening of acute infection consistent with aspergillosis. -ID ACCOUNT EXECUTIVE AGRIBUSINESS evaluated patient today. To continue on Voriconazole. Started on IV Doxycycline and Zosyn. May likely need to start on Cresemba. COPD exacerbation: still with dyspnea on exertion -Patient failed walk test recommended oxygen which he was on prior. Continue O2 via NC. -Pulmonology following. Per pulmonology, continue Duonebs bid; O2 at 2L; prednisone discontinued. Pulmonary nodules -Status post bronchoscopy; negative cytology. Repeat CT in 2 months, follow-up with pulmonology as an outpatient. SVT: due to sepsis; s/p Cardizem. -S/p cardiology consultation. -Continue Beta rosy Ischemic cardiomyopathy -S/p stent placement 2001, follow-up angiogram no intervention needed per patient. -Elevated troponin likely due to presenting tachycardia/sepsis. -Echo with EF 35% cautious use of BB hx of COPD -Cardiology reconsulted on 06/05, nonsustained VT felt to be secondary to NAN . Information from Dr Vora shows ECHO May 2016 with normal EF and cath from 2014 (Apr per pt) with stable CAD. Elevated trop likely from sepsis -Continue on aspirin. Continue to monitor. -Continue Lisinopril -Refuses heart healthy diet Acute on chronic systolic CHF exacerbation -Continue Lasix and monitor electrolytes. Hypertension: Controlled. -Continue lisinopril and metoprolol Diabetes mellitus 2 with previous hypoglycemic episode -No further hypoglycemia. Hyperglycemia secondary to steroids and noncompliance. -Patient refuses all long-acting insulin and also refuses blood glucose checks aside from once daily and SSI at that time if needed. He was extensively counseled on need for insulin if BGL's are elevated as he could be putting himself at risk of DKA if not appropriately treated. Patient was informed of symptoms of DKA and that it can lead to coma or ; he understands and is cognitively capable of refusing. He adamantly denies having diabetes. RN was present for conversation regarding this. -Hemoglobin A1c 6.8 indicating well controlled diabetes as patient was on insulin previously. -Refuses diabetic diet. Anemia of chronic disease -S/p pRBC transfusion with improved H/H. Hemoglobin stable at 9.5. -Stool occult blood positive 1. GI performed endoscopy which showed gastritis and esophageal ring status post dilatations and biopsy. Ok with GI for aspirin. Refused colonoscopy. -Continue to monitor. Dry eyes: Continue with eye lubricants. C. difficile colitis: -Completed Flagyl 07/06/16. -Monitor electrolytes Minor epistaxis with nose blowing: Likely attributed to dry nares. Patient refuses humidified oxygen as he states it causes him to have too much phlegm. Nasal saline ordered. L shoulder pain: chronic; likely rotator cuff injury. I spoke with PT to work with patient. Patient states he saw orthopedics in the past for this and x-rays were performed. No new injury. No x-rays needed. I again explained to the patient today that he likely has a rotator cuff injury and new x-rays are not going to be helpful. He is advised that he will likely need an outpatient MRI with orthopedics. Medication non-compliance: Patient refused several medications due to nausea related to taking so many at one time. I switched his aspirin and lisinopril to nighttime. I discontinued the potassium phosphate which he has been on for one month and is not necessary at this time. Hopefully patient's compliance will improve now. DVT prophylaxis, SCD's and subcutaneous heparin. Patient refused heparin. Discharge Planning PT recommends home with outpatient PT/pulmonary rehab. Continue voriconazole by mouth until 07/27. Patient is homeless so cannot get oxygen unless he has a place to live. Cannot be placed in skilled nursing or SNF due to criminal background. Needs pulmonary follow-up for lung nodules. Case management following. Attending Statement Patient seen. Agree with above. Zoë Graham Jul 26, 2016 12:30 Latrell Marc MD Jul 27, 2016 07:29
[2016-07-26] MEDS: ACETAMINOPHEN/HYDROcodone 325 MG/5 MG TAB PO PRN (14:34)
--- NOTE | 2016-07-26 14:52 | PD.CONS ---
History of Present Illness Service ID CONSULT DR NAIR Consult Requested By Reason for Consult ASPERGILLUS NIGER LUNG INFECTION NOT GETTING BETTER Primary Care Physician Non-Staff Diagnoses: (1) Dizziness (2) SVT (supraventricular tachycardia) History of Present Illness is a 76 y/o CM with history of CAD, diabetes who [facility]. He states he has not felt well in months. He uses home O2 however he states the last 2 weeks he has felt worse sob and he needs the o2 24/11. He is coughing some white phlegm. He had a bronch 06/20 which grew aspergillus niger. Pt was started on vfend 06/27. He is not feeling better and repeat chest ct yesterday shows worsening infection. Id is consulted for care. He has lived in [place] and [place]. He has recently been in [place] over 20years. Review of Systems Constitutional: COMPLAINS OF: Dizziness Ears, nose, mouth, throat: DENIES: Nasal discharge Respiratory: COMPLAINS OF: Cough, Sputum production, Shortness of breath, DENIES: Hemoptysis Cardiovascular: DENIES: Chest pain, Lower Extremity Edema Gastrointestinal: DENIES: Abdominal pain Musculoskeletal: DENIES: Joint pain Integumentary: DENIES: Rash Neurologic: COMPLAINS OF: Localized weakness Past Family Social History Allergies: Coded Allergies: Sulfa (Verified Allergy, Severe, Anaphylaxis, 01/27/16) *MDRO Multi-Drug Resistant Organism (Verified Adverse Reaction, Unknown, ) MRSA (hand)-06/10/16 Past Medical History Past Medical History CAD hypertension diabetes mellitus bladder cancer Past Surgical History Past Surgical History cardiac stent placement Reported Medications Reported Medications [place] (Hydrocodone-Acetaminophen) 5-325 mg Tab 1 Tab PO Q4H PRN Milk of Magnesia Liq (Magnesium Hydroxide) 400 Mg/5 Ml Susp 30 Ml PO HS PRN Lisinopril 20 Mg Tab 20 Mg PO DAILY Levemir Flextouch Pen Inj (Insulin Detemir) 300 unit/3 ML Pen 8 Units SQ HS Levemir Flextouch Pen Inj (Insulin Detemir) 300 unit/3 ML Pen 12 Units SQ DAILY Allergy Eye Drops (Ketotifen Fumarate (Ophth)) 0.025 % Abdirashid 1 Drop EACH EYE QID Aspirin Children's (Aspirin) 81 Mg Chew 81 Mg CHEW DAILY Mapap (Acetaminophen) 325 Mg Tab 650 Mg PO Q4HR PRN B-12 (Cyanocobalamin) 1,000 Mcg Cap 1,000 Mcg PO DAILY Ergocalciferol 50,000 Unit Cap 50,000 Units PO WEEKLY ON FRIDAYS Diltiazem ER 24 HR (Diltiazem HCl) 180 Mg Caper 180 Mg PO DAILY Clonidine (Clonidine HCl) 0.1 Mg Tab 0.1 Mg PO Q12HR PRN Cheracol-D Cough Liq (Dextromethorphan-Guaifenesin Liq) 10-100 Mg/5 Ml Liq 5 Ml PO Q6H PRN Albuterol Neb (Albuterol Sulfate) 2.5 Mg/3 Ml Neb 2.5 Mg NEB Q6HR PRN Allergies: Coded Allergies: Sulfa (Verified Allergy, Severe, Anaphylaxis, 01/27/16) Active Ordered Medications Current Medications IV Flush (NS Flush) 2 ml UNSCH PRN IVF FLUSH AFTER USING IV ACCESS; Start at 12:30 Adenosine (Adenocard Inj) 6 mg ONCE ONCE IV PUSH Last administered on 13:36; Start 06/05/16 at 12:30; Stop 06/05/16 at 12:31; Status DC Adenosine (Adenocard Inj) 12 mg ONCE ONCE IV PUSH Last administered on 13:37; Start 06/05/16 at 12:30; Stop 06/05/16 at 12:31; Status DC Adenosine (Adenocard Inj) 18 mg STK-MED ONCE .ROUTE ; Start 06/05/16 at 12:29; Stop 06/05/16 at 12:30; Status DC Adenosine (Adenocard Inj) 6 mg STK-MED ONCE .ROUTE ; Start 06/05/16 at 12:31; Stop 06/05/16 at 12:32; Status DC Adenosine (Adenocard Inj) 6 mg ONCE ONCE IV PUSH ; Start 06/05/16 at 12:45; Stop 06/05/16 at 12:46; Status DC Adenosine (Adenocard Inj) 12 mg ONCE ONCE IV PUSH ; Start 06/05/16 at 12:45; Stop 06/05/16 at 12:46; Status DC Diltiazem HCl (Cardizem Inj) 25 mg STK-MED ONCE .ROUTE ; Start 06/05/16 at 12:41 ; Stop 06/05/16 at 12:42; Status DC Diltiazem HCl (Cardizem Inj) 25 mg ONCE ONCE IV Last administered on 06/05/16 13:38; Start 06/05/16 at 13:15; Stop 06/05/16 at 13:16; Status DC Diltiazem HCl 25 mg 25 mg STK-MED ONCE .ROUTE Last administered on 06/05/16 13: 37; Start 06/05/16 at 13:02; Stop 06/05/16 at 13:03; Status DC Vancomycin HCl 1200 mg/Sodium Chloride 262 ml @ 250 mls/hr ONCE ONCE IV Last administered on 06/05/16 14:45; Start 06/05/16 at 13:15; Stop 06/05/16 at 14:17; Status DC Cefepime HCl 2000 mg/Sodium Chloride 100 ml @ 200 mls/hr ONCE ONCE IV ; Start 06/05/16 at 13:15; Stop 06/05/16 at 13:44; Status DC Diltiazem HCl/ Sodium Chloride (Cardizem Inj/NS Inj) 125 ml @ 0 mls/hr TITRATE IV Last administered on 06/05/16 14:37; Start 06/05/16 at 13:30 Diltiazem HCl (Cardizem Inj) 20 mg ONCE ONCE IV Last administered on 06/05/16 14:35; Start 06/05/16 at 14:15; Stop 06/05/16 at 14:16; Status DC Diltiazem HCl (Cardizem Inj) 20 mg ONCE ONCE IV ; Start 06/05/16 at 14:15; Stop 06/05/16 at 14:16; Status DC Family History none Social History quit smoking 20years ago Physical Exam Vital Signs Vital Signs Date Time Temp Pulse Resp B/P Pulse Ox O2 Delivery O2 Flow Rate FiO2 07/26/16 08:00 96.8 88 20 118/54 96 07/26/16 02:13 2.00 07/25/16 20:00 Nasal Cannula 2.00 07/25/16 20:00 97.9 105 20 123/71 94 Physical Exam GENERAL: This is a well-nourished, well-developed patient, in no apparent distress. SKIN: No rashes, ecchymoses or lesions. Cool and dry. HEAD: Atraumatic. Normocephalic. No temporal or scalp tenderness. EYES: Pupils equal round and reactive. Extraocular motions intact. No scleral icterus. No injection or drainage. ENT: Nose without bleeding, purulent drainage or septal hematoma. Throat without erythema, tonsillar hypertrophy or exudate. Uvula midline. Airway patent. NECK: Trachea midline. No JVD or lymphadenopathy. Supple, nontender, no meningeal signs. CARDIOVASCULAR: Regular rate and rhythm without murmurs, gallops, or rubs. RESPIRATORY: equal and diminished throughout with crackles in the bases. GASTROINTESTINAL: Abdomen soft, non-tender, nondistended. No hepato-splenomegaly , or palpable masses. No guarding. MUSCULOSKELETAL: Extremities without clubbing, cyanosis, or edema. No joint tenderness, effusion, or edema noted. No calf tenderness. Negative Homans sign bilaterally. NEUROLOGICAL: Awake and alert. Cranial nerves II through XII intact. Motor and sensory grossly within normal limits. Five out of 5 muscle strength in all muscle groups. Normal speech. Laboratory Laboratory Tests Test 07/26/16 08:17 Sodium Level 145 Potassium Level 4.2 Chloride Level 110 Carbon Dioxide Level 29.0 Anion Gap 6 Blood Urea Nitrogen 21 Creatinine 0.84 Estimat Glomerular Filtration 89 Rate Random Glucose 97 Calcium Level 7.9 Result Diagram: 07/25/16 1421 07/26/16 0817 Assessment and Plan Problem List: (1) COPD with acute exacerbation Status: Acute (2) Aspergillosis, with pneumonia Status: Acute Plan: pt on vfend repeat sputum cs pulm following may need cresemba started further rec to folow (3) CAD (coronary artery disease) Status: Acute Problem Qualifiers (1) CAD (coronary artery disease): Qualified Code: I25.10 - Coronary artery disease involving [place] coronary artery of [place] heart without angina pectoris Columba Morin Jul 26, 2016 14:52
[2016-07-26] MEDS: DOXYCYCLINE 100 MG/NS 100 ML IV SCH ×2 (18:56)
[2016-07-26 20:00] VITALS: BP 121/74; PULSE 84; RESP 21; TEMP 97.7; O2SAT 98
[2016-07-26 20:40] VITALS: O2SAT 99
[2016-07-26] MEDS: RESP: ALBUTEROL 0.63 MG/3 ML NEB (PRN) NEB (20:40)
[2016-07-26] MEDS ORDERED: LISINOPRIL 20 MG TAB PO SCH (21:00)
[2016-07-26] MEDS: LISINOPRIL 20 MG TAB PO SCH (22:39)
[2016-07-26] MEDS: ZOLPIDEM TARTRATE 5 MG TAB PO PRN (22:39)
[2016-07-26] MEDS: ASPIRIN 81 MG CHEW TAB CHEW SCH (22:39)
[2016-07-27] MEDS: PIPERACIL-TAZO 3.375 GM PREMIX 50 ML IV SCH ×5 (00:59→18:24)
[2016-07-27] MEDS: DOXYCYCLINE 100 MG/NS 100 ML IV SCH ×4 (05:34→17:23)
[2016-07-27 08:00] VITALS: BP 126/71; PULSE 97; RESP 16; TEMP 97.8; O2SAT 96
--- NOTE | 2016-07-27 08:47 | HHI.PR ---
Subjective Remarks Follow-up for Aspergillus pneumonia. Patient was started on IV antibiotics yesterday by infectious disease as patient's CT scan was worse. Patient admits to feeling tired again. He denies any fevers or chills. He states his cough stopped last night. When I asked him if he feels more short of breath than usual he states he hasn't done anything yet. Patient again complains of his left shoulder pain when lying down and he insists on getting x-rays. Objective Vitals Vital Signs Date Time Temp Pulse Resp B/P Pulse Ox O2 Delivery O2 Flow Rate FiO2 07/27/16 08:00 97.8 97 16 126/71 96 07/26/16 20:40 99 Nasal Cannula 2.00 07/26/16 20:00 97.7 84 21 121/74 98 07/26/16 20:00 Nasal Cannula 2.00 07/26/16 15:34 18 I/O 07/26/16 07/26/16 07/26/16 07/27/16 07/27/16 07/27/16 07:00 15:00 23:00 07:00 15:00 23:00 Intake Total 240 ml 800 ml 240 ml 120 ml Balance 240 ml 800 ml 240 ml 120 ml Intake Oral 240 ml 800 ml 240 ml 120 ml # Voids 1 5 2 1 # Bowel Movements 0 1 Result Diagram: 07/25/16 1421 07/26/16 0817 Objective Remarks GENERAL: Elderly well-nourished, well-developed patient in no apparent distress. CARDIOVASCULAR: Regular rate and rhythm. RESPIRATORY: No accessory muscle use. Clear but diminished breath sounds. GASTROINTESTINAL: Abdomen soft, nontender, nondistended. MUSCULOSKELETAL: 2+ bilateral distal radial pulses. Mild tenderness to palpation over the left proximal humerus. NEUROLOGICAL: Awake and alert. Normal tooth clerk strength left hand. Sensation grossly intact over digits of left hand. PSYCHIATRIC: Depressed mood and affect. Procedures Incision and drainage of right hand abscess Bronchoscopy EGD with dilatation Urinary Catheter: No Vascular Central Line Catheter: No A/P Problem List: (1) SVT (supraventricular tachycardia) ICD Code: I47.1 Status: Resolved (2) Severe sepsis ICD Code: A41.9 Status: Resolved (3) COPD with acute exacerbation ICD Code: J44.1 Status: Acute (4) Sepsis ICD Code: A41.9 Status: Resolved (5) Cellulitis of right upper extremity ICD Code: L03.113 Status: Resolved (6) Abscess of hand, right ICD Code: L02.511 Status: Resolved (7) Olecranon bursitis, right elbow ICD Code: M70.21 Status: Resolved (8) Dizziness ICD Code: R42 Status: Acute (9) Hypokalemia ICD Code: E87.6 Status: Acute Assessment and Plan 07/25 Acute dizziness: Likely attributed to receiving lisinopril too early. Medication was changed to nighttime yesterday but apparently patient also received in the morning. Orthostatics performed. Patient was hypotensive. I have clarified Lisinopril order with pharmacist, changed to daily qhs to start tomorrow night. Will monitor BP. CBC with improved hemoglobin. BUN improved. Discussed with Dr. Marc. Hypokalemia: Resolved. Due to refusing his scheduled KCl 2 days in a row. 3.4--> 4.2 today s/p repletion. Severe sepsis due to cellulitis of the right upper extremity/right olecranon bursitis now resolved. -Previous venous Doppler of the upper extremities with no DVT -US of the right upper extremity with a complex mass overlying the right third finger. S/p I/D of the right hand MRSA abscess and treatment with Vancomycin. -Evaluated by ortho and hand surgery; cleared by hand surgery. Community acquired pneumonia: Worsening -Status post treatment with Zosyn and Levaquin. -Bronchial washings culture with Aspergillus niger, on Voriconazole since 06/27- treatment per ID; patient has been on Voriconazole for ~1 month. -Call ID if acute issues develop. ID discussed with Dr. Jhaveri about need for outpt ID follow up. -07/14: LFTs reviewed and normal. Monitor periodically due to Variconazole use. -07/26: Per pulmonology, repeat CT was ordered. CT performed today and personally interpreted and compared to prior with resolution of L sided effusion ; progressive worsening of acute infection consistent with aspergillosis. ID CARPENTER MATE evaluated patient. To continue on Voriconazole. Patient was started on IV Doxycycline and Zosyn. May likely need to start on Cresemba. COPD exacerbation: still with dyspnea on exertion -Patient failed walk test recommended oxygen which he was on prior. Continue O2 via NC. -Pulmonology following. Per pulmonology, continue Duonebs bid; O2 at 2L; prednisone discontinued. Pulmonary nodules -Status post bronchoscopy; negative cytology. Repeat CT in 2 months, follow-up with pulmonology as an outpatient. SVT: due to sepsis; s/p Cardizem. -S/p cardiology consultation. -Continue Beta rosy Ischemic cardiomyopathy -S/p stent placement 2001, follow-up angiogram no intervention needed per patient. -Elevated troponin likely due to presenting tachycardia/sepsis. -Echo with EF 35% cautious use of BB hx of COPD -Cardiology reconsulted on 06/05, nonsustained VT felt to be secondary to NAN . Information from Dr Vora shows ECHO May 2016 with normal EF and cath from 2014 (Apr per pt) with stable CAD. Elevated trop likely from sepsis -Continue on aspirin. Continue to monitor. -Continue Lisinopril -Refuses heart healthy diet Acute on chronic systolic CHF exacerbation -Continue Lasix and monitor electrolytes. Hypertension: Controlled. -Continue lisinopril and metoprolol Diabetes mellitus 2 with previous hypoglycemic episode -No further hypoglycemia. Hyperglycemia secondary to steroids and noncompliance. -Patient refuses all long-acting insulin and also refuses blood glucose checks aside from once daily and SSI at that time if needed. He was extensively counseled on need for insulin if BGL's are elevated as he could be putting himself at risk of DKA if not appropriately treated. Patient was informed of symptoms of DKA and that it can lead to coma or ; he understands and is cognitively capable of refusing. He adamantly denies having diabetes. RN was present for conversation regarding this. -Hemoglobin A1c 6.8 indicating well controlled diabetes as patient was on insulin previously. -Refuses diabetic diet. Anemia of chronic disease -S/p pRBC transfusion with improved H/H. Hemoglobin stable at 9.5. -Stool occult blood positive 1. GI performed endoscopy which showed gastritis and esophageal ring status post dilatations and biopsy. Ok with GI for aspirin. Refused colonoscopy. -Continue to monitor. Dry eyes: Continue with eye lubricants. C. difficile colitis: -Completed Flagyl 07/06/16. -Monitor electrolytes Minor epistaxis with nose blowing: Likely attributed to dry nares. Patient refuses humidified oxygen as he states it causes him to have too much phlegm. Nasal saline ordered. L shoulder pain: chronic; likely rotator cuff injury. I spoke with PT to work with patient. Patient states he saw orthopedics in the past for this and x-rays were performed. No new injury. No x-rays needed. I explained to the patient that he likely has a rotator cuff injury and new x-rays are not going to be helpful. He is advised that he will likely need an outpatient MRI with orthopedics. 07/27: Today he insists on x-rays, but I personally interpreted a chest x-ray from 07/02 which shows a previous fracture of the left proximal humerus. Patient likely has chronic pain from this. I will not be ordering new x-rays as there is no new injury reported. Medication non-compliance: Patient refused several medications due to nausea related to taking so many at one time. I switched his aspirin and lisinopril to nighttime. I discontinued the potassium phosphate which he has been on for one month and is not necessary at this time. Hopefully patient's compliance will improve now. DVT prophylaxis, SCD's and subcutaneous heparin. Patient refused heparin. Discharge Planning PT recommends home with outpatient PT/pulmonary rehab. Continue voriconazole by mouth until 07/27. Patient is homeless so cannot get oxygen unless he has a place to live. Cannot be placed in skilled nursing or SNF due to criminal background. Needs pulmonary follow-up for lung nodules. Case management following. Attending Statement Patient seen. Agree with above. Zoë Graham Jul 27, 2016 08:47 Latrell Marc MD Jul 27, 2016 14:57
[2016-07-27] MEDS: HEPARIN SODIUM - SQ 10,000 UNITS/ML VIAL SQ SCH ×2 (09:00→21:00)
[2016-07-27] MEDS: POTASSIUM CHLORIDE 10 MEQ CONTROLLED RELEASE TAB PO SCH (09:30)
[2016-07-27] MEDS: LACTOBACILLUS ACIDOPHILUS TAB PO SCH ×3 (09:30→17:23)
[2016-07-27] MEDS: FUROSEMIDE 20 MG TAB PO SCH (09:31)
[2016-07-27] MEDS: METOPROLOL TARTRATE 50 MG TAB PO SCH ×2 (09:31→21:50)
[2016-07-27] MEDS: PANTOPRAZOLE SOD 20 MG DELAYED RELEASE TAB PO SCH (09:31)
[2016-07-27] MEDS: VORICONAZOLE 200 MG TAB PO SCH ×2 (09:31→21:50)
[2016-07-27] MEDS: BUDESONIDE-FORMOTEROL 160/4.5 MCG INHALER INH SCH ×2 (09:33→21:50)
[2016-07-27] MEDS: ACETAMINOPHEN/HYDROcodone 325 MG/5 MG TAB PO PRN (10:48)
[2016-07-27] MEDS: RESP: ALBUTEROL 0.63 MG/3 ML NEB (PRN) NEB ×2 (15:05→21:56)
[2016-07-27 15:07] VITALS: O2SAT 96
--- NOTE | 2016-07-27 18:27 | HHI.PR ---
Subjective Remarks Has some cough.and On O2 at [address] L[address] Amb[address] in room[address] CT chest shows some change in infiltrates. No cavitation Objective Vital Signs Date Time Temp Pulse Resp B/P Pulse Ox O2 Delivery O2 Flow Rate FiO2 07/27/16 15:07 96 Nasal Cannula 2.00 07/27/16 11:48 18 07/27/16 08:00 Nasal Cannula 2.00 07/27/16 08:00 97.8 97 16 126/71 96 07/26/16 20:40 99 Nasal Cannula 2.00 07/26/16 20:00 97.7 84 21 121/74 98 07/26/16 20:00 Nasal Cannula 2.00 I/O 07/26/16 07/26/16 07/26/16 07/27/16 07/27/16 07/27/16 07:00 15:00 23:00 07:00 15:00 23:00 Intake Total 240 ml 800 ml 240 ml 120 ml 560 ml Balance 240 ml 800 ml 240 ml 120 ml 560 ml Intake Oral 240 ml 800 ml 240 ml 120 ml 360 ml IV Total 200 ml # Voids 1 5 2 1 3 # Bowel Movements 0 1 Result Diagram: 07/25/16 1421 07/26/16 0817 Objective Remarks This is an elderly averagely built white male who is alert. EXTREMITIES: There is no clubbing. There is no leg edema. HEENT: Head normocephalic. Pupils are reactive and equal. Tongue was moist. Throat was clear. Ears, no inflammation. NECK: Supple. No venous distension. No thyromegaly or lymphadenopathy. CHEST: Decreased breath sounds at the bases .Bilateral wheeze. HEART: The heart sounds are regular S1-S2 with no murmur. No S3. ABDOMEN: The abdomen is soft, nontender. No organomegaly. The bowel sounds are active. EXTREMITIES: No Edema with diminished pulses and joint deformities of the extremities. SKIN: warm, dry. NEUROLOGIC: He is alert and oriented. Moves all extremities.There are no gross deficits. Assessment and Plan Assessment and Plan IMPRESSION 1. Cellulitis of the right upper extremity resolved 2. COPD with emphysema and chronic bronchitis 3. Coronary artery disease with stenting 4. Diabetes mellitus 5. History of hypertension. 6. Left Lung nodules Plan : 1. PT evaluation and ambulate. 2. Cont Nebs bid, duoneb. 3. O2 at 2 L. 4. Continue lasix 40 mg Po daily. 5. Antibiotics per ID 6. Voriconazole 400 mg PO daily 7. CT chest in 6 weeks. Liv Pinedo MD Jul 27, 2016 18:27
[2016-07-27 18:36] VITALS: O2SAT 93
[2016-07-27 20:00] VITALS: BP 122/67; PULSE 79; RESP 21; TEMP 97.4; O2SAT 95
[2016-07-27 20:40] VITALS: O2SAT 90
[2016-07-27] MEDS: ASPIRIN 81 MG CHEW TAB CHEW SCH (21:50)
[2016-07-27] MEDS: ZOLPIDEM TARTRATE 5 MG TAB PO PRN (21:50)
[2016-07-27] MEDS: LISINOPRIL 20 MG TAB PO SCH (21:50)
--- NOTE | 2016-07-27 22:26 | HHI.IDPN ---
Subjective Subjective Remarks Seen on 07/27/16 at 12 noon ( Late entry) Feels better than yesterday Less short of breath. Cough and sputum production less. No fever or chills Appetite ok. Antibiotics Zosyn and Doxy Voriconazole Lines Line sites with no e/o bleed. 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 Vital Signs Date Time Temp Pulse Resp B/P Pulse Ox O2 Delivery O2 Flow Rate FiO2 07/27/16 20:40 90 21 07/27/16 20:00 97.4 79 21 122/67 95 07/27/16 18:36 93 07/27/16 15:07 96 Nasal Cannula 2.00 07/27/16 11:48 18 07/27/16 08:00 Nasal Cannula 2.00 07/27/16 08:00 97.8 97 16 126/71 96 07/26/16 07/26/16 07/27/16 15:00 23:00 07:00 Intake Total 800 ml 240 ml 120 ml Balance 800 ml 240 ml 120 ml Intake Oral 800 ml 240 ml 120 ml # Voids 5 2 1 # Bowel Movements 1 . Laboratory Tests Test 07/26/16 08:17 Sodium Level 145 MEQ/L Potassium Level 4.2 MEQ/L Chloride Level 110 MEQ/L Carbon Dioxide Level 29.0 MEQ/L Anion Gap 6 MEQ/L Blood Urea Nitrogen 21 MG/DL Creatinine 0.84 MG/DL Estimat Glomerular Filtration 89 ML/MIN Rate Random Glucose 97 MG/DL Calcium Level 7.9 MG/DL Microbiology Date/Time Procedure Status Source Growth 07/26/16 19:15 Gram Stain - Final Resulted Sputum Expectorated Sputum 07/26/16 19:15 Sputum Culture - Preliminary Resulted Sputum Expectorated Sputum IMMATURE GROWTH - REINCUBATE Imaging Last Impressions Chest X-Ray 06/05/16 1223 Signed Impressions: Service Date/Time: June 12:50 - CONCLUSION: Hyperinflation which can be seen with COPD. No acute cardiopulmonary disease and no evidence for an infiltrate. Mani Lopez MD Upper Extremity Ultrasound 06/05/16 0000 Signed Impressions: Service Date/Time: June 16:01 - CONCLUSION: No evidence of upper extremity DVT on the right or left. Matt Sapp MD Elbow X-Ray 06/05/16 0000 Signed Impressions: Service Date/Time: June 17:02 - CONCLUSION: Minimal arthritic findings. Prominent soft tissue swelling of the olecranon process indicating possible olecranon bursitis. Matt Sapp MD Physical Exam GENERAL: Elderly chronically ill appearing male patient, in no apparent distress. SKIN: No rashes, ecchymoses or lesions. Cool and dry. HEAD: Atraumatic. Normocephalic. No temporal or scalp tenderness. EYES: Pupils equal round and reactive. Extraocular motions intact. No scleral icterus. No injection or drainage. ENT: Nose without bleeding, purulent drainage or septal hematoma. Throat without erythema, tonsillar hypertrophy or exudate. Uvula midline. Airway patent. NECK: Trachea midline. Supple, nontender, no meningeal signs. CARDIOVASCULAR: Hs audible. RESPIRATORY: Breath sounds diminished. Fe crackles. GASTROINTESTINAL: Abdomen soft, non-tender, nondistended. No hepato-splenomegaly , or palpable masses. No guarding. MUSCULOSKELETAL: Bilateral UE edema associated with erythema. On the knuckles of both hands an area of tenderness,fluctuance noted. right elbow with fluctuance noted, erythema and warmth noted. NEUROLOGICAL: Awake and alert. Grossly non focal Psych: cooperative IV line sites with no e/o infection. Assessment & Plan Diagnosis: (1) Aspergillosis, with pneumonia Plan: Follow repeat sputum culture Continue IV Zosyn and Doxy Continue Voriconazole Clinically improved on the antibiotics today so will hold off on the Cresemba for now. (2) COPD with acute exacerbation (3) Cardiomyopathy Problem Qualifiers (1) Cardiomyopathy: Qualified Code: I25.5 - Ischemic cardiomyopathy Samaria Felder MD Jul 27, 2016 22:26
[2016-07-28] MEDS: PIPERACIL-TAZO 3.375 GM PREMIX 50 ML IV SCH ×2 (00:25→05:46)
[2016-07-28] MEDS: DOXYCYCLINE 100 MG/NS 100 ML IV SCH ×4 (05:46→17:38)
[2016-07-28 07:23] LABS: POTASSIUM 3.6 MEQ/L (3.5-5.1)
[2016-07-28 07:26] LABS: BICARBONATE 27.7 MEQ/L (21.0-32.0)
[2016-07-28 08:00] VITALS: BP 135/69; PULSE 76; RESP 19; TEMP 97.7; O2SAT 98
[2016-07-28] MEDS: LACTOBACILLUS ACIDOPHILUS TAB PO SCH ×3 (08:44→17:38)
[2016-07-28] MEDS: PANTOPRAZOLE SOD 20 MG DELAYED RELEASE TAB PO SCH (08:44)
[2016-07-28] MEDS: FUROSEMIDE 20 MG TAB PO SCH (08:44)
[2016-07-28] MEDS: BUDESONIDE-FORMOTEROL 160/4.5 MCG INHALER INH SCH ×2 (08:44→21:08)
[2016-07-28] MEDS: predniSONE 20 MG TAB PO SCH (08:44)
[2016-07-28] MEDS: METOPROLOL TARTRATE 50 MG TAB PO SCH ×2 (08:45→21:09)
[2016-07-28] MEDS: POTASSIUM CHLORIDE 10 MEQ CONTROLLED RELEASE TAB PO SCH (08:45)
[2016-07-28] MEDS: VORICONAZOLE 200 MG TAB PO SCH ×2 (08:45→21:09)
[2016-07-28] MEDS: HEPARIN SODIUM - SQ 10,000 UNITS/ML VIAL SQ SCH ×3 (08:46→21:00)
[2016-07-28] MEDS: RESP: ALBUTEROL 2.5 MG/IPRATROPIUM 0.5 MG NEB (SCH) NEB ×2 (09:00→19:55)
--- NOTE | 2016-07-28 10:07 | HHI.IDPN ---
Subjective Subjective Remarks Feels better Less short of breath. Cough and sputum production less. No hemoptysis No fever or chills Some left shoulder discomfort Antibiotics Zosyn and Doxy Voriconazole Lines Line sites with no e/o bleed. 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 Vital Signs Date Time Temp Pulse Resp B/P Pulse Ox O2 Delivery O2 Flow Rate FiO2 07/28/16 08:00 97.7 76 19 135/69 98 07/27/16 20:40 90 21 07/27/16 20:00 97.4 79 21 122/67 95 07/27/16 18:36 93 07/27/16 15:07 96 Nasal Cannula 2.00 07/27/16 11:48 18 07/27/16 07/27/16 07/28/16 15:00 23:00 07:00 Intake Total 1040 ml 240 ml Balance 1040 ml 240 ml Intake Oral 840 ml 240 ml IV Total 200 ml # Voids 5 2 . Laboratory Tests Test 07/28/16 06:45 Sodium Level 148 MEQ/L Potassium Level 3.6 MEQ/L Chloride Level 113 MEQ/L Carbon Dioxide Level 27.7 MEQ/L Anion Gap 7 MEQ/L Blood Urea Nitrogen 20 MG/DL Creatinine 0.97 MG/DL Estimat Glomerular Filtration 75 ML/MIN Rate Random Glucose 92 MG/DL Calcium Level 7.8 MG/DL Microbiology Date/Time Procedure Status Source Growth 07/26/16 19:15 Gram Stain - Final Resulted Sputum Expectorated Sputum 07/26/16 19:15 Sputum Culture - Preliminary Resulted Sputum Expectorated Sputum IMMATURE GROWTH - REINCUBATE Imaging Last Impressions Chest X-Ray 06/05/16 1223 Signed Impressions: Service Date/Time: June 12:50 - CONCLUSION: Hyperinflation which can be seen with COPD. No acute cardiopulmonary disease and no evidence for an infiltrate. Mani Lopez MD Upper Extremity Ultrasound 06/05/16 0000 Signed Impressions: Service Date/Time: June 16:01 - CONCLUSION: No evidence of upper extremity DVT on the right or left. Matt Sapp MD Elbow X-Ray 06/05/16 0000 Signed Impressions: Service Date/Time: June 17:02 - CONCLUSION: Minimal arthritic findings. Prominent soft tissue swelling of the olecranon process indicating possible olecranon bursitis. Matt Sapp MD Physical Exam GENERAL: Elderly chronically ill appearing male patient, in no apparent distress. SKIN: Multiple ecchymoses. HEAD: Atraumatic. Normocephalic. No temporal or scalp tenderness. EYES: Pupils equal round and reactive. Extraocular motions intact. No scleral icterus. No injection or drainage. ENT: Nose without bleeding, purulent drainage or septal hematoma. Throat without erythema, tonsillar hypertrophy or exudate. Uvula midline. Airway patent. NECK: Trachea midline. Supple, nontender, no meningeal signs. CARDIOVASCULAR: Hs audible. RESPIRATORY: Breath sounds diminished. Few crackles. GASTROINTESTINAL: Abdomen soft, non-tender, nondistended. No hepato-splenomegaly , or palpable masses. No guarding. MUSCULOSKELETAL: left arm with chronic deformity- some wasting right elbow with fluctuance noted, erythema and warmth noted. NEUROLOGICAL: Awake and alert. Grossly non focal Psych: cooperative IV line sites with no e/o infection. Assessment & Plan Diagnosis: (1) Aspergillosis, with pneumonia Plan: Follow repeat sputum culture Stop IV Zosyn Continue IV Doxy Continue Voriconazole Clinically improved . Reviewed CT scan - does not need change in anti fungal at this time. (2) COPD with acute exacerbation (3) Cardiomyopathy Problem Qualifiers (1) Cardiomyopathy: Qualified Code: I25.5 - Ischemic cardiomyopathy Samaria Felder MD Jul 28, 2016 10:07
[2016-07-28] MEDS: RESP: ALBUTEROL 0.63 MG/3 ML NEB (PRN) NEB (13:56)
[2016-07-28 13:58] VITALS: O2SAT 91
--- NOTE | 2016-07-28 18:19 | HHI.PR ---
Subjective Remarks Late entry. Patient was evaluated this morning. Follow-up for Aspergillus pneumonia. Patient complains of nosebleed but states his nasal passages are wet although he blows his nose quite a bit. Objective Vitals Vital Signs Date Time Temp Pulse Resp B/P Pulse Ox O2 Delivery O2 Flow Rate FiO2 07/28/16 13:58 91 21 07/28/16 08:00 97.7 76 19 135/69 98 07/27/16 20:40 90 21 07/27/16 20:00 97.4 79 21 122/67 95 07/27/16 18:36 93 I/O 07/27/16 07/27/16 07/27/16 07/28/16 07/28/16 07/28/16 07:00 15:00 23:00 07:00 15:00 23:00 Intake Total 120 ml 1040 ml 240 ml 480 ml Balance 120 ml 1040 ml 240 ml 480 ml Intake Oral 120 ml 840 ml 240 ml 480 ml IV Total 200 ml 0 ml # Voids 1 5 2 2 # Bowel Movements 0 Result Diagram: 07/25/16 1421 07/28/16 0645 Objective Remarks GENERAL: Elderly well-nourished, well-developed patient in no apparent distress. CARDIOVASCULAR: Regular rate and rhythm. RESPIRATORY: No accessory muscle use. Clear but diminished breath sounds. GASTROINTESTINAL: Abdomen soft, nontender, nondistended. MUSCULOSKELETAL: No lower extremity edema bilaterally. NEUROLOGICAL: Awake and alert. PSYCHIATRIC: Normal mood and affect. Procedures Incision and drainage of right hand abscess Bronchoscopy EGD with dilatation Urinary Catheter: No Vascular Central Line Catheter: No A/P Problem List: (1) SVT (supraventricular tachycardia) ICD Code: I47.1 Status: Resolved (2) Severe sepsis ICD Code: A41.9 Status: Resolved (3) COPD with acute exacerbation ICD Code: J44.1 Status: Acute (4) Sepsis ICD Code: A41.9 Status: Resolved (5) Cellulitis of right upper extremity ICD Code: L03.113 Status: Resolved (6) Abscess of hand, right ICD Code: L02.511 Status: Resolved (7) Olecranon bursitis, right elbow ICD Code: M70.21 Status: Resolved (8) Dizziness ICD Code: R42 Status: Acute (9) Hypokalemia ICD Code: E87.6 Status: Acute Assessment and Plan 07/25 Acute dizziness: Likely attributed to receiving lisinopril too early. Medication was changed to nighttime yesterday but apparently patient also received in the morning. Orthostatics performed. Patient was hypotensive. I have clarified Lisinopril order with pharmacist, changed to daily qhs to start tomorrow night. Will monitor BP. CBC with improved hemoglobin. BUN improved. Hypokalemia: Resolved. Due to refusing his scheduled KCl 2 days in a row. 3.4--> 4.2 s/p repletion. Hypernatremia and Hyperchloremia: 148 and 113 respectively. BUN stable at 20. Cr normal. -Repeat am BMP. Severe sepsis due to cellulitis of the right upper extremity/right olecranon bursitis now resolved. -Previous venous Doppler of the upper extremities with no DVT -US of the right upper extremity with a complex mass overlying the right third finger. S/p I/D of the right hand MRSA abscess and treatment with Vancomycin. -Evaluated by ortho and hand surgery; cleared by hand surgery. Community acquired pneumonia: Worsening -Status post treatment with Zosyn and Levaquin. -Bronchial washings culture with Aspergillus niger, on Voriconazole since 06/27- treatment per ID; patient has been on Voriconazole for ~1 month. -Call ID if acute issues develop. ID discussed with Dr. Pinedo about need for outpt ID follow up. -07/14: LFTs reviewed and normal. Monitor periodically due to Variconazole use. -07/26: CT performed with resolution of L sided effusion; radiologist indicates progressive worsening of acute infection consistent with aspergillosis. ID GAS CUTTER evaluated patient and he was started on IV Doxycycline and Zosyn in additon to continuing Voriconazole. -07/27: I spoke with Dr. Pinedo at length who has spoken with a different radiologist in regards to CT and agree that infection is not worse. He states he will discuss with ID. He advises continuing Voriconazole and repeat chest CT in 6 weeks. He also placed patient on Prednisone 20 mg daily. -07/28: I spoke with Dr. Felder who agrees patient is not clinically worse but preliminary sputum culture has grown gram positive cocci in pairs and clusters so she has kept patient on Doxycycline and discontinued Zosyn. ID following. COPD exacerbation: still with dyspnea on exertion -Patient failed walk test recommended oxygen which he was on prior. Continue O2 via NC. -Pulmonology following. Per pulmonology, continue Duonebs bid; O2 at 2L. Pulmonary nodules -Status post bronchoscopy; negative cytology. Repeat CT in 2 months, follow-up with pulmonology as an outpatient. SVT: due to sepsis; s/p Cardizem. -S/p cardiology consultation. -Continue Beta rosy Ischemic cardiomyopathy -S/p stent placement 2001, follow-up angiogram no intervention needed per patient. -Elevated troponin likely due to presenting tachycardia/sepsis. -Echo with EF 35% cautious use of BB hx of COPD -Cardiology reconsulted on 06/05, nonsustained VT felt to be secondary to NAN . Information from Dr Vora shows ECHO May 2016 with normal EF and cath from 2014 (Dec per pt) with stable CAD. Elevated trop likely from sepsis -Continue on aspirin. Continue to monitor. -Continue Lisinopril -Refuses heart healthy diet Acute on chronic systolic CHF exacerbation -Continue Lasix and monitor electrolytes. Hypertension: Controlled. -Continue lisinopril and metoprolol Diabetes mellitus 2 with previous hypoglycemic episode -No further hypoglycemia. Hyperglycemia secondary to steroids and noncompliance. -Patient refuses all long-acting insulin and also refuses blood glucose checks aside from once daily and SSI at that time if needed. He was extensively counseled on need for insulin if BGL's are elevated as he could be putting himself at risk of DKA if not appropriately treated. Patient was informed of symptoms of DKA and that it can lead to coma or ; he understands and is cognitively capable of refusing. He adamantly denies having diabetes. RN was present for conversation regarding this. -Hemoglobin A1c 6.8 indicating well controlled diabetes as patient was on insulin previously. -Refuses diabetic diet. Anemia of chronic disease -S/p pRBC transfusion with improved H/H. Hemoglobin stable at 9.5. -Stool occult blood positive 1. GI performed endoscopy which showed gastritis and esophageal ring status post dilatations and biopsy. Ok with GI for aspirin. Refused colonoscopy. -Continue to monitor. Dry eyes: Continue with eye lubricants. C. difficile colitis: -Completed Flagyl 07/06/16. -Monitor electrolytes Minor epistaxis with nose blowing: Likely attributed to dry nares. Patient refuses humidified oxygen as he states it causes him to have too much phlegm. Hemoglobin and platelets stable. Continue nasal saline. Patient advised not to pick at the nose. L shoulder pain: chronic; likely rotator cuff injury. I spoke with PT to work with patient. Patient states he saw orthopedics in the past for this and x-rays were performed. No new injury. No x-rays needed. I explained to the patient that he likely has a rotator cuff injury and new x-rays are not going to be helpful. He is advised that he will likely need an outpatient MRI with orthopedics. Chest x-ray from 07/02 shows a previous fracture of the left proximal humerus. Patient likely has chronic pain from this. I will not be ordering new x-rays as there is no new injury reported. Medication non-compliance: Patient refused several medications due to nausea related to taking so many at one time. I switched his aspirin and lisinopril to nighttime. I discontinued the potassium phosphate which he has been on for one month and is not necessary at this time. Hopefully patient's compliance will improve now. DVT prophylaxis, SCD's and subcutaneous heparin. Patient refused heparin. Discharge Planning PT recommends home with outpatient PT/pulmonary rehab. Continue voriconazole by mouth until 07/27. Patient is homeless so cannot get oxygen unless he has a place to live. Cannot be placed in jail or SNF due to criminal background. Needs pulmonary follow-up for lung nodules. Case management following. Attending Statement Patient seen. Agree with above. Zoë Graham Jul 28, 2016 18:19 Latrell Marc MD Jul 29, 2016 07:57
[2016-07-28 19:55] VITALS: O2SAT 96
[2016-07-28 20:00] VITALS: BP 142/72; PULSE 93; RESP 20; TEMP 97.9; O2SAT 96
[2016-07-28] MEDS: ASPIRIN 81 MG CHEW TAB CHEW SCH (21:08)
[2016-07-28] MEDS: LISINOPRIL 20 MG TAB PO SCH (21:09)
[2016-07-28] MEDS: ZOLPIDEM TARTRATE 5 MG TAB PO PRN (22:14)
[2016-07-29] MEDS: DOXYCYCLINE 100 MG/NS 100 ML IV SCH ×4 (05:19→17:36)
[2016-07-29 07:19] LABS: POTASSIUM 3.5 MEQ/L (3.5-5.1)
[2016-07-29 07:47] VITALS: O2SAT 96
[2016-07-29] MEDS: RESP: ALBUTEROL 2.5 MG/IPRATROPIUM 0.5 MG NEB (SCH) NEB ×3 (07:47→20:05)
[2016-07-29 08:00] VITALS: BP 132/69; PULSE 75; RESP 20; TEMP 97.7; O2SAT 97
[2016-07-29] MEDS: FUROSEMIDE 20 MG TAB PO SCH (08:28)
[2016-07-29] MEDS: LACTOBACILLUS ACIDOPHILUS TAB PO SCH ×3 (08:28→17:36)
[2016-07-29] MEDS: ACETAMINOPHEN/HYDROcodone 325 MG/5 MG TAB PO PRN ×2 (08:29→22:05)
[2016-07-29] MEDS: POTASSIUM CHLORIDE 10 MEQ CONTROLLED RELEASE TAB PO SCH (08:29)
[2016-07-29] MEDS: PANTOPRAZOLE SOD 20 MG DELAYED RELEASE TAB PO SCH (08:29)
[2016-07-29] MEDS: METOPROLOL TARTRATE 50 MG TAB PO SCH ×2 (08:29→21:50)
[2016-07-29] MEDS: BUDESONIDE-FORMOTEROL 160/4.5 MCG INHALER INH SCH ×2 (08:39→21:50)
[2016-07-29] MEDS: VORICONAZOLE 200 MG TAB PO SCH ×2 (09:00→21:51)
[2016-07-29] MEDS: predniSONE 20 MG TAB PO SCH (09:00)
[2016-07-29] MEDS: HEPARIN SODIUM - SQ 10,000 UNITS/ML VIAL SQ SCH ×2 (09:00→21:00)
--- NOTE | 2016-07-29 15:35 | HHI.PR ---
Subjective Remarks Patient is examined today. Patient does admit that he is getting stronger on a daily basis. Patient had a list of questions about chest x-rays, and weight gain, daily weights, length of stay in the hospital, all the questions were answered Objective Vitals Vital Signs Date Time Temp Pulse Resp B/P Pulse Ox O2 Delivery O2 Flow Rate FiO2 07/29/16 10:54 69 Nasal Cannula 2.00 07/29/16 10:48 14 07/29/16 08:00 97.7 75 20 132/69 97 07/29/16 07:47 96 Nasal Cannula 2.00 07/28/16 20:00 97.9 93 20 142/72 96 07/28/16 20:00 96 Nasal Cannula 2.00 07/28/16 19:55 96 Nasal Cannula 2.00 07/28/16 18:00 Nasal Cannula 2.00 I/O 07/28/16 07/28/16 07/28/16 07/29/16 07/29/16 07/29/16 07:00 15:00 23:00 07:00 15:00 23:00 Intake Total 240 ml 480 ml 240 ml 240 ml Balance 240 ml 480 ml 240 ml 240 ml Intake Oral 240 ml 480 ml 240 ml 240 ml IV Total 0 ml # Voids 2 2 1 2 # Bowel Movements 0 0 0 Result Diagram: 07/25/16 1421 07/29/16 0650 Objective Remarks GENERAL: Well-developed, well-nourished, in no acute distress. alert and orientated HEENT: Head is normocephalic without any lesions or masses noted. Facial features are symmetric. Eyes: Extraocular muscles are intact. Conjunctivae were clear. NECK: Supple without any masses. Trachea midline no deviation. No JVD, CARDIAC: Regular rhythm, regular rate. S1/S2 are heard. No murmurs gallops or rubs. LUNGS: Clear to auscultation bilaterally. No wheeze, rhonchi or rales. No use of accessory muscles on inspiration or expiration. ABDOMEN: Soft, nontender. Nondistended. Bowel sounds heard in all 4 quadrants. No organomegaly or masses. Negative rebound, negative guarding EXTREMITIES: No edema, pulses are equal bilaterally. No cyanosis or clubbing NEUROLOGY: Mood and affect appear appropriate. Cranial nerves II through XII grossly intact. Moving all extremities, speech is clear Procedures Incision and drainage of right hand abscess Bronchoscopy EGD with dilatation Urinary Catheter: No Vascular Central Line Catheter: No A/P Assessment and Plan Community acquired pneumonia, clinically improved -Status post treatment with Zosyn and Levaquin. -Bronchial washings culture with Aspergillus niger, on Voriconazole since 06/27, continue IV doxycycline- treatment per ID -Call ID if acute issues develop. ID discussed with Dr. Jhaveri about need for outpt ID follow up. -07/14: LFTs reviewed and normal. Monitor periodically due to Variconazole use. -CT of the chest shows improvement of the pleural effusion, however progressive worsening of acute infection consistent with the history of aspergillosis. This result was discussed with dragline mechanic as well as infectious disease who does not feel that the patient is any worse. He is actually clinically improved. Retail Department Supervisor requesting repeat CT in 6 weeks Severe sepsis due to cellulitis of the right upper extremity/right olecranon bursitis now resolved. -Previous venous Doppler of the upper extremities with no DVT -US of the right upper extremity with a complex mass overlying the right third finger. S/p I/D of the right hand MRSA abscess and treatment with Vancomycin. -Evaluated by ortho and hand surgery; cleared by hand surgery. Hypernatremia Encourage by mouth intake COPD exacerbation: still with dyspnea on exertion -Patient failed walk test recommended oxygen which he was on prior. -Pulmonology following. Continue O2, nebulizer as needed Pulmonary nodules -Status post bronchoscopy; negative cytology. Repeat CT in 2 months, follow-up with pulmonology as an outpatient. SVT: due to sepsis; s/p Cardizem. -S/p cardiology consultation. -Continue Beta rosy Ischemic cardiomyopathy -S/p stent placement 2001, follow-up angiogram no intervention needed per patient. -Elevated troponin likely due to presenting tachycardia/sepsis. -Echo with EF 35% cautious use of BB hx of COPD -Cardiology reconsulted on 06/05, nonsustained VT felt to be secondary to NAN . Information from Dr Vora shows ECHO May 2016 with normal EF and cath from 2014 (Apr per pt) with stable CAD. Elevated trop likely from sepsis -Continue on aspirin. Continue to monitor. -Continue Lisinopril -Refuses heart healthy diet Acute on chronic systolic CHF exacerbation -Continue Lasix and monitor electrolytes. Hypertension: Controlled. -Continue lisinopril and metoprolol Diabetes mellitus 2 with previous hypoglycemic episode -No further hypoglycemia. Blood glucose readings [id number] -Patient did not require insulin in over 5 days. Accu-Cheks and sliding so insulin was discontinued -Patient was counseled on refusal of Accu-Cheks and insulin. I have risk of developing DKA. -Hemoglobin A1c 6.8 indicating well controlled diabetes as patient was on insulin previously. -Refuses diabetic diet. Anemia of chronic disease -S/p pRBC transfusion with improved H/H. Hemoglobin stable at 9.5. -Stool occult blood positive 1. GI performed endoscopy which showed gastritis and esophageal ring status post dilatations and biopsy. Ok with GI for aspirin. Refused colonoscopy. -Continue to monitor. C. difficile colitis: -Completed Flagyl 07/06/16. -Monitor electrolytes DVT prophylaxis, SCD's and subcutaneous heparin, patient refusing heparin intermittently Discharge Planning Case management for discharge planning. Attending Statement Patient seen. Agree with above. Latrell Mcnair Jul 29, 2016 15:35 Latrell Marc MD Jul 29, 2016 18:31
[2016-07-29 20:00] VITALS: BP 144/66; PULSE 83; RESP 24; TEMP 97.5; O2SAT 93
[2016-07-29 20:05] VITALS: O2SAT 93
[2016-07-29] MEDS: LISINOPRIL 20 MG TAB PO SCH (21:50)
[2016-07-29] MEDS: ASPIRIN 81 MG CHEW TAB CHEW SCH (21:50)
[2016-07-29] MEDS: ZOLPIDEM TARTRATE 5 MG TAB PO PRN (22:05)
[2016-07-30] MEDS: DOXYCYCLINE 100 MG/NS 100 ML IV SCH ×4 (05:00→16:28)
[2016-07-30 08:00] VITALS: BP 128/76; PULSE 65; RESP 20; TEMP 98.1; O2SAT 94
[2016-07-30] MEDS: ACETAMINOPHEN/HYDROcodone 325 MG/5 MG TAB PO PRN ×2 (08:47→16:28)
[2016-07-30] MEDS: predniSONE 20 MG TAB PO SCH (08:52)
[2016-07-30] MEDS: FUROSEMIDE 20 MG TAB PO SCH (08:52)
[2016-07-30] MEDS: VORICONAZOLE 200 MG TAB PO SCH ×2 (08:52→20:58)
[2016-07-30] MEDS: PANTOPRAZOLE SOD 20 MG DELAYED RELEASE TAB PO SCH (08:52)
[2016-07-30] MEDS: POTASSIUM CHLORIDE 10 MEQ CONTROLLED RELEASE TAB PO SCH (08:52)
[2016-07-30] MEDS: METOPROLOL TARTRATE 50 MG TAB PO SCH ×2 (08:52→20:57)
[2016-07-30] MEDS: LACTOBACILLUS ACIDOPHILUS TAB PO SCH ×3 (08:52→16:28)
[2016-07-30] MEDS: BUDESONIDE-FORMOTEROL 160/4.5 MCG INHALER INH SCH ×2 (08:53→20:57)
[2016-07-30] MEDS: HEPARIN SODIUM - SQ 10,000 UNITS/ML VIAL SQ SCH ×2 (08:53→20:59)
--- NOTE | 2016-07-30 16:25 | HHI.PR ---
Subjective Remarks Patient seen and examined today. Patient denies any new complaints. Patient states that he is getting stronger. Objective Vitals Vital Signs Date Time Temp Pulse Resp B/P Pulse Ox O2 Delivery O2 Flow Rate FiO2 07/30/16 09:48 20 07/30/16 08:00 94 Nasal Cannula 2.00 07/30/16 08:00 98.1 65 20 128/76 94 07/30/16 08:00 Nasal Cannula 2.00 07/29/16 20:05 93 21 07/29/16 20:00 97.5 83 24 144/66 93 07/29/16 20:00 Nasal Cannula 2.00 I/O 07/29/16 07/29/16 07/29/16 07/30/16 07/30/16 07/30/16 07:00 15:00 23:00 07:00 15:00 23:00 Intake Total 990 ml 480 ml 240 ml 520 ml Balance 990 ml 480 ml 240 ml 520 ml Intake Oral 990 ml 480 ml 240 ml 520 ml # Voids 5 2 2 # Bowel Movements 1 0 0 Result Diagram: 07/29/16 0650 Objective Remarks GENERAL: Well-developed, well-nourished, in no acute distress. alert and orientated HEENT: Head is normocephalic without any lesions or masses noted. Facial features are symmetric. Eyes: Extraocular muscles are intact. Conjunctivae were clear. NECK: Supple without any masses. Trachea midline no deviation. No JVD, CARDIAC: Regular rhythm, regular rate. S1/S2 are heard. No murmurs gallops or rubs. LUNGS: Clear to auscultation bilaterally. No wheeze, rhonchi or rales. No use of accessory muscles on inspiration or expiration. ABDOMEN: Soft, nontender. Nondistended. Bowel sounds heard in all 4 quadrants. No organomegaly or masses. Negative rebound, negative guarding EXTREMITIES: No edema, pulses are equal bilaterally. No cyanosis or clubbing NEUROLOGY: Mood and affect appear appropriate. Cranial nerves II through XII grossly intact. Moving all extremities, speech is clear Procedures Incision and drainage of right hand abscess Bronchoscopy EGD with dilatation Urinary Catheter: No Vascular Central Line Catheter: No A/P Assessment and Plan Community acquired pneumonia, clinically improved -Status post treatment with Zosyn and Levaquin. -Bronchial washings culture with Aspergillus niger, on Voriconazole since 2/24, continue IV doxycycline- treatment per ID -Call ID if acute issues develop. ID discussed with Dr. Jhaveri about need for outpt ID follow up. -07/14: LFTs reviewed and normal. Monitor periodically due to Variconazole use. -CT of the chest shows improvement of the pleural effusion, however progressive worsening of acute infection consistent with the history of aspergillosis. This result was discussed with customer supply coordinator as well as infectious disease who does not feel that the patient is any worse. He is actually clinically improved. Senior Contracts Manager requesting repeat CT in 6 weeks Severe sepsis due to cellulitis of the right upper extremity/right olecranon bursitis now resolved. -Previous venous Doppler of the upper extremities with no DVT -US of the right upper extremity with a complex mass overlying the right third finger. S/p I/D of the right hand MRSA abscess and treatment with Vancomycin. -Evaluated by ortho and hand surgery; cleared by hand surgery. Hypernatremia Encourage by mouth intake COPD exacerbation: still with dyspnea on exertion -Patient failed walk test recommended oxygen which he was on prior. -Pulmonology following. Continue O2, nebulizer as needed Pulmonary nodules -Status post bronchoscopy; negative cytology. Repeat CT in 2 months, follow-up with pulmonology as an outpatient. SVT: due to sepsis; s/p Cardizem. -S/p cardiology consultation. -Continue Beta rosy Ischemic cardiomyopathy -S/p stent placement 2001, follow-up angiogram no intervention needed per patient. -Elevated troponin likely due to presenting tachycardia/sepsis. -Echo with EF 35% cautious use of BB hx of COPD -Cardiology reconsulted on 06/05, nonsustained VT felt to be secondary to NAN . Information from Dr Vora shows ECHO May 2016 with normal EF and cath from 2014 (Apr per pt) with stable CAD. Elevated trop likely from sepsis -Continue on aspirin. Continue to monitor. -Continue Lisinopril -Refuses heart healthy diet Acute on chronic systolic CHF exacerbation -Continue Lasix and monitor electrolytes. Hypertension: Controlled. -Continue lisinopril and metoprolol Diabetes mellitus 2 with previous hypoglycemic episode -No further hypoglycemia. Blood glucose readings [id number] -Patient did not require insulin in over 5 days. Accu-Cheks and sliding so insulin was discontinued -Patient was counseled on refusal of Accu-Cheks and insulin. I have risk of developing DKA. -Hemoglobin A1c 6.8 indicating well controlled diabetes as patient was on insulin previously. -Refuses diabetic diet. Anemia of chronic disease -S/p pRBC transfusion with improved H/H. Hemoglobin stable at 9.5. -Stool occult blood positive 1. GI performed endoscopy which showed gastritis and esophageal ring status post dilatations and biopsy. Ok with GI for aspirin. Refused colonoscopy. -Continue to monitor. C. difficile colitis: -Completed Flagyl 07/06/16. -Monitor electrolytes DVT prophylaxis, SCD's and subcutaneous heparin, patient refusing heparin intermittently Discharge Planning Case management for discharge planning. Attending Statement Patient seen. Agree with above. Latrell Mcnair Jul 30, 2016 16:25 Latrell Marc MD Jul 30, 2016 18:05
[2016-07-30 20:00] VITALS: BP 150/68; PULSE 78; RESP 20; TEMP 96.6; O2SAT 95
[2016-07-30] MEDS: ASPIRIN 81 MG CHEW TAB CHEW SCH (20:57)
[2016-07-30] MEDS: LISINOPRIL 20 MG TAB PO SCH (20:58)
[2016-07-30 21:42] VITALS: O2SAT 94
[2016-07-30] MEDS: RESP: ALBUTEROL 2.5 MG/IPRATROPIUM 0.5 MG NEB (SCH) NEB (21:42)
[2016-07-30] MEDS: ZOLPIDEM TARTRATE 5 MG TAB PO PRN (22:16)
[2016-07-31] MEDS: DOXYCYCLINE 100 MG/NS 100 ML IV SCH ×6 (05:00→22:46)
[2016-07-31] MEDS: RESP: ALBUTEROL 2.5 MG/IPRATROPIUM 0.5 MG NEB (SCH) NEB ×2 (08:00→20:44)
[2016-07-31 08:11] VITALS: O2SAT 92
[2016-07-31 08:17] VITALS: BP 127/65; PULSE 71; RESP 18; TEMP 97.3; O2SAT 95
[2016-07-31] MEDS: HEPARIN SODIUM - SQ 10,000 UNITS/ML VIAL SQ SCH ×2 (09:00→20:39)
[2016-07-31] MEDS: VORICONAZOLE 200 MG TAB PO SCH ×2 (09:24→20:33)
[2016-07-31] MEDS: LACTOBACILLUS ACIDOPHILUS TAB PO SCH ×3 (09:24→16:45)
[2016-07-31] MEDS: METOPROLOL TARTRATE 50 MG TAB PO SCH ×2 (09:24→20:34)
[2016-07-31] MEDS: FUROSEMIDE 20 MG TAB PO SCH (09:24)
[2016-07-31] MEDS: PANTOPRAZOLE SOD 20 MG DELAYED RELEASE TAB PO SCH (09:24)
[2016-07-31] MEDS: POTASSIUM CHLORIDE 10 MEQ CONTROLLED RELEASE TAB PO SCH (09:24)
[2016-07-31] MEDS: predniSONE 20 MG TAB PO SCH (09:24)
[2016-07-31] MEDS: BUDESONIDE-FORMOTEROL 160/4.5 MCG INHALER INH SCH ×2 (09:25→20:33)
[2016-07-31] MEDS: ACETAMINOPHEN/HYDROcodone 325 MG/5 MG TAB PO PRN (09:26)
--- NOTE | 2016-07-31 10:28 | HHI.PR ---
Subjective Remarks Patient seen and examined today. Patient resting comfortably. Patient denies any new complaints. Objective Vitals Vital Signs Date Time Temp Pulse Resp B/P Pulse Ox O2 Delivery O2 Flow Rate FiO2 07/31/16 08:17 97.3 71 18 127/65 95 07/30/16 21:42 94 21 07/30/16 20:00 96.6 78 20 150/68 95 07/30/16 20:00 Nasal Cannula 2.00 07/30/16 17:28 20 I/O 07/30/16 07/30/16 07/30/16 07/31/16 07/31/16 07/31/16 07:00 15:00 23:00 07:00 15:00 23:00 Intake Total 240 ml 730 ml 220 ml Balance 240 ml 730 ml 220 ml Intake Oral 240 ml 730 ml 220 ml # Voids 2 2 2 # Bowel Movements 0 0 0 Result Diagram: 07/29/16 0650 Objective Remarks GENERAL: Well-developed, well-nourished, in no acute distress. Procedures Incision and drainage of right hand abscess Bronchoscopy EGD with dilatation Urinary Catheter: No Vascular Central Line Catheter: No A/P Assessment and Plan Community acquired pneumonia, clinically improved -Status post treatment with Zosyn and Levaquin. -Bronchial washings culture with Aspergillus niger, on Voriconazole since 06/27, continue IV doxycycline- treatment per ID -Call ID if acute issues develop. ID discussed with Dr. Jhaveri about need for outpt ID follow up. -07/14: LFTs reviewed and normal. Monitor periodically due to Variconazole use. -CT of the chest shows improvement of the pleural effusion, however progressive worsening of acute infection consistent with the history of aspergillosis. This result was discussed with spot sprayer as well as infectious disease who does not feel that the patient is any worse. He is actually clinically improved. Gas Worker requesting repeat CT in 6 weeks Severe sepsis due to cellulitis of the right upper extremity/right olecranon bursitis now resolved. -Previous venous Doppler of the upper extremities with no DVT -US of the right upper extremity with a complex mass overlying the right third finger. S/p I/D of the right hand MRSA abscess and treatment with Vancomycin. -Evaluated by ortho and hand surgery; cleared by hand surgery. Hypernatremia Encourage by mouth intake Continue monitor sodium level COPD exacerbation: still with dyspnea on exertion -Patient failed walk test recommended oxygen which he was on prior. -Pulmonology following. Continue O2, nebulizer as needed Pulmonary nodules -Status post bronchoscopy; negative cytology. Repeat CT in 2 months, follow-up with pulmonology as an outpatient. SVT: due to sepsis; s/p Cardizem. -S/p cardiology consultation. -Continue Beta rosy Ischemic cardiomyopathy -S/p stent placement 2001, follow-up angiogram no intervention needed per patient. -Elevated troponin likely due to presenting tachycardia/sepsis. -Echo with EF 35% cautious use of BB hx of COPD -Cardiology reconsulted on 06/05, nonsustained VT felt to be secondary to NAN . Information from Dr Vora shows ECHO May 2016 with normal EF and cath from 2014 (Apr per pt) with stable CAD. Elevated trop likely from sepsis -Continue on aspirin. Continue to monitor. -Continue Lisinopril -Refuses heart healthy diet Acute on chronic systolic CHF exacerbation -Continue Lasix and monitor electrolytes. Hypertension: Controlled. -Continue lisinopril and metoprolol Diabetes mellitus 2 with previous hypoglycemic episode -No further hypoglycemia. Blood glucose readings [id number] -Patient did not require insulin in over 5 days. Accu-Cheks and sliding so insulin was discontinued -Patient was counseled on refusal of Accu-Cheks and insulin. I have risk of developing DKA. -Hemoglobin A1c 6.8 indicating well controlled diabetes as patient was on insulin previously. -Refuses diabetic diet. Anemia of chronic disease -S/p pRBC transfusion with improved H/H. Hemoglobin stable at 9.5. -Stool occult blood positive 1. GI performed endoscopy which showed gastritis and esophageal ring status post dilatations and biopsy. Ok with GI for aspirin. Refused colonoscopy. -Continue to monitor. C. difficile colitis: -Completed Flagyl 07/06/16. -Monitor electrolytes DVT prophylaxis, SCD's and subcutaneous heparin, patient refusing heparin intermittently Discharge Planning Case management for discharge planning. Latrell Mcnair Jul 31, 2016 10:28
[2016-07-31 20:00] VITALS: BP 123/67; PULSE 80; RESP 24; TEMP 96.9; O2SAT 95
[2016-07-31] MEDS: LISINOPRIL 20 MG TAB PO SCH (20:34)
[2016-07-31] MEDS: ASPIRIN 81 MG CHEW TAB CHEW SCH (20:34)
[2016-07-31 20:44] VITALS: O2SAT 93
[2016-07-31] MEDS: ZOLPIDEM TARTRATE 5 MG TAB PO PRN (23:34)
[2016-08-01 07:04] LABS: POTASSIUM 3.3 MEQ/L (3.5-5.1)
[2016-08-01 07:09] LABS: BICARBONATE 26.8 MEQ/L (21.0-32.0)
[2016-08-01] MEDS: RESP: ALBUTEROL 2.5 MG/IPRATROPIUM 0.5 MG NEB (SCH) NEB (07:41)
[2016-08-01 08:00] VITALS: BP 122/69; PULSE 78; RESP 18; TEMP 97.4; O2SAT 98
[2016-08-01] MEDS: HEPARIN SODIUM - SQ 10,000 UNITS/ML VIAL SQ SCH ×2 (09:00→21:00)
[2016-08-01] MEDS: BUDESONIDE-FORMOTEROL 160/4.5 MCG INHALER INH SCH ×2 (09:00→21:55)
[2016-08-01] MEDS: DOXYCYCLINE 100 MG/NS 100 ML IV SCH ×4 (10:00→22:00)
[2016-08-01] MEDS: VORICONAZOLE 200 MG TAB PO SCH ×2 (10:31→21:56)
[2016-08-01] MEDS: LACTOBACILLUS ACIDOPHILUS TAB PO SCH ×3 (10:32→18:21)
[2016-08-01] MEDS: POTASSIUM CHLORIDE 10 MEQ CONTROLLED RELEASE TAB PO SCH (10:32)
[2016-08-01] MEDS: FUROSEMIDE 20 MG TAB PO SCH (10:32)
[2016-08-01] MEDS: METOPROLOL TARTRATE 50 MG TAB PO SCH ×2 (10:32→21:56)
[2016-08-01] MEDS: PANTOPRAZOLE SOD 20 MG DELAYED RELEASE TAB PO SCH (10:32)
[2016-08-01] MEDS: ACETAMINOPHEN/HYDROcodone 325 MG/5 MG TAB PO PRN ×2 (10:32→22:38)
[2016-08-01] MEDS: predniSONE 20 MG TAB PO SCH (10:32)
--- NOTE | 2016-08-01 11:54 | HHI.PR ---
Subjective Remarks Patient seen and examined today. Patient denies any complaints. No change in clinical status. Objective Vitals Vital Signs Date Time Temp Pulse Resp B/P Pulse Ox O2 Delivery O2 Flow Rate FiO2 08/01/16 08:00 97.4 78 18 122/69 98 07/31/16 20:44 93 21 07/31/16 20:00 96.9 80 24 123/67 95 07/31/16 20:00 Nasal Cannula 2.00 I/O 07/31/16 07/31/16 07/31/16 08/01/16 08/01/16 08/01/16 07:00 15:00 23:00 07:00 15:00 23:00 Intake Total 220 ml 480 ml 240 ml Output Total 500 ml Balance 220 ml -20 ml 240 ml Intake Oral 220 ml 480 ml 240 ml Output Urine Total 500 ml # Voids 2 3 2 # Bowel Movements 0 Result Diagram: 08/01/16 0610 Objective Remarks GENERAL: Well-developed, well-nourished, in no acute distress. alert and orientated HEENT: Head is normocephalic without any lesions or masses noted. Facial features are symmetric. Eyes: Extraocular muscles are intact. Conjunctivae were clear. NECK: Supple without any masses. Trachea midline no deviation. CARDIAC: Regular rhythm, regular rate. S1/S2 are heard. No murmurs gallops or rubs. LUNGS: Clear to auscultation bilaterally. No wheeze, rhonchi or rales. No use of accessory muscles on inspiration or expiration. ABDOMEN: Soft, nontender. Nondistended. Bowel sounds heard in all 4 quadrants. No organomegaly or masses. Negative rebound, negative guarding EXTREMITIES: No edema, pulses are equal bilaterally. No cyanosis or clubbing NEUROLOGY: Mood and affect appear appropriate. Cranial nerves II through XII grossly intact. Moving all extremities, speech is clear Procedures Incision and drainage of right hand abscess Bronchoscopy EGD with dilatation Urinary Catheter: No Vascular Central Line Catheter: No A/P Assessment and Plan Community acquired pneumonia, clinically improved -Status post treatment with Zosyn and Levaquin. -Bronchial washings culture with Aspergillus niger, on Voriconazole since 06/27, continue IV doxycycline- treatment per ID -Call ID if acute issues develop. ID discussed with Dr. Jhaveri about need for outpt ID follow up. -07/14: LFTs reviewed and normal. Monitor periodically due to Variconazole use. -CT of the chest shows improvement of the pleural effusion, however progressive worsening of acute infection consistent with the history of aspergillosis. This result was discussed with prepared foods team leader as well as infectious disease who does not feel that the patient is any worse. He is actually clinically improved. Behavioral Health Care Coordinator requesting repeat CT in 6 weeks Severe sepsis due to cellulitis of the right upper extremity/right olecranon bursitis now resolved. -Previous venous Doppler of the upper extremities with no DVT -US of the right upper extremity with a complex mass overlying the right third finger. S/p I/D of the right hand MRSA abscess and treatment with Vancomycin. -Evaluated by ortho and hand surgery; cleared by hand surgery. Hypernatremia Encourage by mouth intake Continue monitor sodium level COPD exacerbation: still with dyspnea on exertion -Patient failed walk test recommended oxygen which he was on prior. -Pulmonology following. Continue O2, nebulizer as needed Pulmonary nodules -Status post bronchoscopy; negative cytology. Repeat CT in 2 months, follow-up with pulmonology as an outpatient. SVT: due to sepsis; s/p Cardizem. -S/p cardiology consultation. -Continue Beta rosy Ischemic cardiomyopathy -S/p stent placement 2001, follow-up angiogram no intervention needed per patient. -Elevated troponin likely due to presenting tachycardia/sepsis. -Echo with EF 35% cautious use of BB hx of COPD -Cardiology reconsulted on 06/05, nonsustained VT felt to be secondary to NAN . Information from Dr Vora shows ECHO May 2016 with normal EF and cath from 2014 (Apr per pt) with stable CAD. Elevated trop likely from sepsis -Continue on aspirin. Continue to monitor. -Continue Lisinopril -Refuses heart healthy diet Acute on chronic systolic CHF exacerbation -Continue Lasix and monitor electrolytes. Hypertension: Controlled. -Continue lisinopril and metoprolol Diabetes mellitus 2 with previous hypoglycemic episode -No further hypoglycemia. Blood glucose readings [id number] -Patient did not require insulin in over 5 days. Accu-Cheks and sliding so insulin was discontinued -Patient was counseled on refusal of Accu-Cheks and insulin. I have risk of developing DKA. -Hemoglobin A1c 6.8 indicating well controlled diabetes as patient was on insulin previously. -Refuses diabetic diet. Anemia of chronic disease -S/p pRBC transfusion with improved H/H. Hemoglobin stable at 9.5. -Stool occult blood positive 1. GI performed endoscopy which showed gastritis and esophageal ring status post dilatations and biopsy. Ok with GI for aspirin. Refused colonoscopy. -Continue to monitor. C. difficile colitis: -Completed Flagyl 07/06/16. -Monitor electrolytes DVT prophylaxis, SCD's and subcutaneous heparin, patient refusing heparin intermittently Discharge Planning Case management for discharge planning. Latrell Mcnair Aug 01, 2016 11:54
[2016-08-01 20:00] VITALS: BP 161/73; PULSE 75; RESP 20; TEMP 98; O2SAT 100
[2016-08-01 20:35] VITALS: O2SAT 98
[2016-08-01] MEDS: RESP: ALBUTEROL 0.63 MG/3 ML NEB (PRN) NEB (20:35)
[2016-08-01] MEDS: ASPIRIN 81 MG CHEW TAB CHEW SCH (21:56)
[2016-08-01] MEDS: ZOLPIDEM TARTRATE 5 MG TAB PO PRN ×2 (21:56→22:38)
[2016-08-01] MEDS: LISINOPRIL 20 MG TAB PO SCH (22:38)
[2016-08-02 08:00] VITALS: BP 95/62; PULSE 58; RESP 20; TEMP 97.4; O2SAT 92
[2016-08-02] MEDS: HEPARIN SODIUM - SQ 10,000 UNITS/ML VIAL SQ SCH ×2 (09:00→21:00)
[2016-08-02] MEDS: LACTOBACILLUS ACIDOPHILUS TAB PO SCH ×3 (09:30→16:23)
[2016-08-02] MEDS: PANTOPRAZOLE SOD 20 MG DELAYED RELEASE TAB PO SCH (09:31)
[2016-08-02] MEDS: predniSONE 20 MG TAB PO SCH (09:31)
[2016-08-02] MEDS: FUROSEMIDE 20 MG TAB PO SCH (09:31)
[2016-08-02] MEDS: POTASSIUM CHLORIDE 10 MEQ CONTROLLED RELEASE TAB PO SCH (09:31)
[2016-08-02] MEDS: METOPROLOL TARTRATE 50 MG TAB PO SCH ×2 (09:31→22:23)
[2016-08-02] MEDS: VORICONAZOLE 200 MG TAB PO SCH ×2 (09:31→22:22)
[2016-08-02] MEDS: BUDESONIDE-FORMOTEROL 160/4.5 MCG INHALER INH SCH ×2 (09:33→22:24)
[2016-08-02] MEDS: DOXYCYCLINE 100 MG/NS 100 ML IV SCH ×4 (10:00→22:25)
[2016-08-02] MEDS: RESP: ALBUTEROL 0.63 MG/3 ML NEB (PRN) NEB (11:15)
[2016-08-02 11:18] VITALS: O2SAT 98
--- NOTE | 2016-08-02 11:31 | HHI.PR ---
Subjective Remarks Patient seen and examined today. Patient denies any new complaints. No change in clinical status. Awaiting infectious disease recommendations for continued management. Objective Vitals Vital Signs Date Time Temp Pulse Resp B/P Pulse Ox O2 Delivery O2 Flow Rate FiO2 08/02/16 11:18 98 Nasal Cannula 2.00 08/02/16 08:00 Nasal Cannula 2.00 08/02/16 08:00 97.4 58 20 95/62 92 08/01/16 20:35 98 Nasal Cannula 2.00 08/01/16 20:00 98.0 75 20 161/73 100 08/01/16 20:00 Nasal Cannula 2.00 I/O 08/01/16 08/01/16 08/01/16 08/02/16 08/02/16 08/02/16 07:00 15:00 23:00 07:00 15:00 23:00 Intake Total 240 ml 950 ml 480 ml 480 ml 100 ml Output Total 0 ml Balance 240 ml 950 ml 480 ml 480 ml 100 ml Intake Oral 240 ml 950 ml 480 ml 480 ml 100 ml Output Urine Total 0 ml # Voids 2 4 2 2 # Bowel Movements 1 Result Diagram: 08/01/16 0610 Objective Remarks GENERAL: Well-developed, well-nourished, in no acute distress. alert and orientated HEENT: Head is normocephalic without any lesions or masses noted. Facial features are symmetric. Eyes: Extraocular muscles are intact. Conjunctivae were clear. NECK: Supple without any masses. Trachea midline no deviation. CARDIAC: Regular rhythm, regular rate. S1/S2 are heard. No murmurs gallops or rubs. LUNGS: Clear to auscultation bilaterally. No wheeze, rhonchi or rales. No use of accessory muscles on inspiration or expiration. ABDOMEN: Soft, nontender. Nondistended. Bowel sounds heard in all 4 quadrants. No organomegaly or masses. Negative rebound, negative guarding EXTREMITIES: No edema, pulses are equal bilaterally. No cyanosis or clubbing NEUROLOGY: Mood and affect appear appropriate. Cranial nerves II through XII grossly intact. 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 -Bronchial washings culture with Aspergillus niger, on Voriconazole since 06/27, continue IV doxycycline- treatment per ID -Call ID if acute issues develop. ID discussed with Dr. Jhaveri about need for outpt ID follow up. -07/14: LFTs reviewed and normal. Monitor periodically due to Variconazole use. -CT of the chest shows improvement of the pleural effusion, however progressive worsening of acute infection consistent with the history of aspergillosis. This result was discussed with veneer patcher as well as infectious disease who does not feel that the patient is any worse. He is actually clinically improved. Commercial Underwriter requesting repeat CT in 6 weeks Severe sepsis due to cellulitis of the right upper extremity/right olecranon bursitis now resolved. -Previous venous Doppler of the upper extremities with no DVT -US of the right upper extremity with a complex mass overlying the right third finger. S/p I/D of the right hand MRSA abscess and treatment with Vancomycin. -Evaluated by ortho and hand surgery; cleared by hand surgery. Hypernatremia Encourage by mouth intake Continue monitor sodium level COPD exacerbation: still with dyspnea on exertion -Patient failed walk test recommended oxygen which he was on prior. -Pulmonology following. Continue O2, nebulizer as needed Pulmonary nodules -Status post bronchoscopy; negative cytology. Repeat CT in 2 months, follow-up with pulmonology as an outpatient. SVT: due to sepsis; s/p Cardizem. -S/p cardiology consultation. -Continue Beta rosy Ischemic cardiomyopathy -S/p stent placement 2001, follow-up angiogram no intervention needed per patient. -Elevated troponin likely due to presenting tachycardia/sepsis. -Echo with EF 35% cautious use of BB hx of COPD -Cardiology reconsulted on 06/05, nonsustained VT felt to be secondary to NAN . Information from Dr Vora shows ECHO May 2016 with normal EF and cath from 2014 (Apr per pt) with stable CAD. Elevated trop likely from sepsis -Continue on aspirin. Continue to monitor. -Continue Lisinopril -Refuses heart healthy diet Acute on chronic systolic CHF exacerbation -Continue Lasix and monitor electrolytes. Hypertension: Controlled. -Continue lisinopril and metoprolol Diabetes mellitus 2 with previous hypoglycemic episode -No further hypoglycemia. Blood glucose readings [id number] -Patient did not require insulin in over 5 days. Accu-Cheks and sliding so insulin was discontinued -Patient was counseled on refusal of Accu-Cheks and insulin. I have risk of developing DKA. -Hemoglobin A1c 6.8 indicating well controlled diabetes as patient was on insulin previously. -Refuses diabetic diet. Anemia of chronic disease -S/p pRBC transfusion with improved H/H. Hemoglobin stable at 9.5. -Stool occult blood positive 1. GI performed endoscopy which showed gastritis and esophageal ring status post dilatations and biopsy. Ok with GI for aspirin. Refused colonoscopy. -Continue to monitor. C. difficile colitis: -Completed Flagyl 07/06/16. -Monitor electrolytes DVT prophylaxis, SCD's and subcutaneous heparin, patient refusing heparin intermittently Discharge Planning Case management for discharge planning. Latrell Mcnair Aug 02, 2016 11:31
[2016-08-02 20:00] VITALS: BP 157/85; PULSE 84; RESP 20; TEMP 96.7; O2SAT 94
[2016-08-02] MEDS: LISINOPRIL 20 MG TAB PO SCH (22:23)
[2016-08-02] MEDS: ASPIRIN 81 MG CHEW TAB CHEW SCH (22:23)
[2016-08-02] MEDS: ZOLPIDEM TARTRATE 5 MG TAB PO PRN (22:23)
[2016-08-03 06:13] LABS: HEMATOCRIT 26.1 % (39.0-51.0); MEAN CELL VOLUME 83.9 FL (80.0-100.0); MEAN CORPUSCULAR HEMOGLOBIN 26.8 PG (27.0-34.0); PLATELET COUNT 231 TH/MM3 (150-450); RED BLOOD COUNT 3.12 MIL/MM3 (4.50-5.90); RED CELL DISTRIBUTION WIDTH 25.1 % (11.6-17.2); WHITE BLOOD COUNT 7.1 TH/MM3 (4.0-11.0)
[2016-08-03 06:28] LABS: HEMO FLAGS AUTO DIFF
[2016-08-03 06:31] LABS: POTASSIUM 3.9 MEQ/L (3.5-5.1)
[2016-08-03 06:36] LABS: BICARBONATE 28.5 MEQ/L (21.0-32.0); MAGNESIUM 1.7 MG/DL (1.5-2.5)
[2016-08-03 06:51] LABS: CORRECTED NUCLEATED RBC 1 /100 WBC (0-0); NEUTROPHIL # MANUAL DIFF 3.3 TH/MM3 (1.8-7.7); POLYS (SEG NEUTROPHILS) 46 % (16-70); WBC DIFF SAMPLE 100
[2016-08-03 06:52] LABS: SCAN/DIFF FINAL DIFF MANUAL
[2016-08-03 07:34] VITALS: O2SAT 98
[2016-08-03] MEDS: VORICONAZOLE 200 MG TAB PO SCH ×2 (07:44→21:24)
[2016-08-03] MEDS: POTASSIUM CHLORIDE 10 MEQ CONTROLLED RELEASE TAB PO SCH (07:44)
[2016-08-03] MEDS: ACETAMINOPHEN/HYDROcodone 325 MG/5 MG TAB PO PRN ×2 (07:44→19:51)
[2016-08-03] MEDS: FUROSEMIDE 20 MG TAB PO SCH (07:44)
[2016-08-03] MEDS: LACTOBACILLUS ACIDOPHILUS TAB PO SCH ×3 (07:44→17:12)
[2016-08-03] MEDS: METOPROLOL TARTRATE 50 MG TAB PO SCH ×2 (07:44→21:24)
[2016-08-03] MEDS: PANTOPRAZOLE SOD 20 MG DELAYED RELEASE TAB PO SCH (07:44)
[2016-08-03] MEDS: BUDESONIDE-FORMOTEROL 160/4.5 MCG INHALER INH SCH ×2 (07:45→21:24)
[2016-08-03] MEDS: predniSONE 20 MG TAB PO SCH (07:45)
[2016-08-03 08:00] VITALS: BP 147/79; PULSE 63; RESP 19; TEMP 96.5; O2SAT 99
[2016-08-03] MEDS: RESP: ALBUTEROL 0.63 MG/3 ML NEB (PRN) NEB (09:00)
[2016-08-03] MEDS: HEPARIN SODIUM - SQ 10,000 UNITS/ML VIAL SQ SCH ×2 (09:00→21:00)
[2016-08-03] MEDS: DOXYCYCLINE 100 MG/NS 100 ML IV SCH ×4 (10:00→21:23)
--- NOTE | 2016-08-03 10:21 | HHI.PR ---
Subjective Remarks Patient seen and examined today. Patient states that his breathing is much improved. However he still complaining of left shoulder pain. He states as a chronic problem is had outpatient workup done on however he was hoping that he can get something done while he is here the hospital. I notified the patient that he will need to follow-up in outpatient setting for continued management that he is already obtaining for his shoulder when she is discharged Objective Vitals Vital Signs Date Time Temp Pulse Resp B/P Pulse Ox O2 Delivery O2 Flow Rate FiO2 08/03/16 09:29 14 08/03/16 08:00 96.5 63 19 147/79 99 08/03/16 07:34 98 Nasal Cannula 2.00 08/02/16 21:05 Nasal Cannula 2.00 08/02/16 20:00 96.7 84 20 157/85 94 08/02/16 20:00 94 Nasal Cannula 2.00 08/02/16 11:18 98 Nasal Cannula 2.00 I/O 08/02/16 08/02/16 08/02/16 08/03/16 08/03/16 08/03/16 07:00 15:00 23:00 07:00 15:00 23:00 Intake Total 480 ml 720 ml 595 ml 480 ml Balance 480 ml 720 ml 595 ml 480 ml Intake Oral 480 ml 720 ml 480 ml 480 ml IV Total 115 ml # Voids 2 3 4 2 # Bowel Movements 0 0 0 Result Diagram: 08/03/16 0600 08/03/16 0600 Objective Remarks GENERAL: Well-developed, well-nourished, in no acute distress. alert and orientated HEENT: Head is normocephalic without any lesions or masses noted. Facial features are symmetric. Eyes: Extraocular muscles are intact. Conjunctivae were clear. NECK: Supple without any masses. Trachea midline no deviation. CARDIAC: Regular rhythm, regular rate. S1/S2 are heard. No murmurs gallops or rubs. LUNGS: Clear to auscultation bilaterally. No wheeze, rhonchi or rales. No use of accessory muscles on inspiration or expiration. ABDOMEN: Soft, nontender. Nondistended. Bowel sounds heard in all 4 quadrants. No organomegaly or masses. Negative rebound, negative guarding EXTREMITIES: No edema, pulses are equal bilaterally. No cyanosis or clubbing NEUROLOGY: Mood and affect appear appropriate. Cranial nerves II through XII grossly intact. 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 -Bronchial washings culture with Aspergillus niger, on Voriconazole since 06/27, continue IV doxycycline- treatment per ID -Call ID if acute issues develop. ID discussed with Dr. Jhaveri about need for outpt ID follow up. -07/14: LFTs reviewed and normal. Monitor periodically due to Variconazole use. -CT of the chest shows improvement of the pleural effusion, however progressive worsening of acute infection consistent with the history of aspergillosis. This result was discussed with hosiery mater as well as infectious disease who does not feel that the patient is any worse. He is actually clinically improved. Electro Winning Operator requesting repeat CT in 6 weeks Severe sepsis due to cellulitis of the right upper extremity/right olecranon bursitis now resolved. -Previous venous Doppler of the upper extremities with no DVT -US of the right upper extremity with a complex mass overlying the right third finger. S/p I/D of the right hand MRSA abscess and treatment with Vancomycin. -Evaluated by ortho and hand surgery; cleared by hand surgery. Hypernatremia Encourage by mouth intake Continue monitor sodium level COPD exacerbation: Resolved -Patient failed walk test recommended oxygen which he was on prior. -Pulmonology following. Continue O2, nebulizer as needed Pulmonary nodules -Status post bronchoscopy; negative cytology. Repeat CT in 2 months, follow-up with pulmonology as an outpatient. SVT: due to sepsis; s/p Cardizem. -S/p cardiology consultation. -Continue Beta rosy Ischemic cardiomyopathy -S/p stent placement 2001, follow-up angiogram no intervention needed per patient. -Elevated troponin likely due to presenting tachycardia/sepsis. -Echo with EF 35% cautious use of BB hx of COPD -Cardiology reconsulted on 06/05, nonsustained VT felt to be secondary to NAN . Information from Dr Vora shows ECHO May 2016 with normal EF and cath from 2014 (Apr per pt) with stable CAD. Elevated trop likely from sepsis -Continue on aspirin. Continue to monitor. -Continue Lisinopril -Refuses heart healthy diet Acute on chronic systolic CHF exacerbation, resolved -Continue Lasix and monitor electrolytes. Hypertension: Controlled. -Continue lisinopril and metoprolol Diabetes mellitus 2 with previous hypoglycemic episode -No further hypoglycemia. Blood glucose readings [id number] -Patient did not require insulin in over 5 days. Accu-Cheks and sliding so insulin was discontinued -Patient was counseled on refusal of Accu-Cheks and insulin. I have risk of developing DKA. -Hemoglobin A1c 6.8 indicating well controlled diabetes as patient was on insulin previously. -Refuses diabetic diet. Anemia of chronic disease -S/p pRBC transfusion with improved H/H. Hemoglobin stable at 9.5. -Stool occult blood positive 1. GI performed endoscopy which showed gastritis and esophageal ring status post dilatations and biopsy. Ok with GI for aspirin. Refused colonoscopy. -Continue to monitor. C. difficile colitis: -Completed Flagyl 07/06/16. -Monitor electrolytes DVT prophylaxis, SCD's and subcutaneous heparin, patient refusing heparin intermittently Discharge Planning Case management for discharge planning. Latrell Mcnair Aug 03, 2016 10:21
[2016-08-03] MEDS: SIMETHICONE 80 MG CHEWABLE TAB CHEW PRN (19:48)
[2016-08-03 20:00] VITALS: BP 141/68; PULSE 76; RESP 22; TEMP 97.1; O2SAT 95
[2016-08-03] MEDS: ASPIRIN 81 MG CHEW TAB CHEW SCH (21:24)
[2016-08-03] MEDS: LISINOPRIL 20 MG TAB PO SCH (21:24)
[2016-08-03] MEDS: ZOLPIDEM TARTRATE 5 MG TAB PO PRN (21:24)
[2016-08-03 21:44] VITALS: O2SAT 99
[2016-08-04 08:00] VITALS: BP 140/68; PULSE 67; RESP 20; TEMP 96.3; O2SAT 94; O2SAT 99
[2016-08-04] MEDS: HEPARIN SODIUM - SQ 10,000 UNITS/ML VIAL SQ SCH ×3 (09:00→22:30)
[2016-08-04] MEDS: PANTOPRAZOLE SOD 20 MG DELAYED RELEASE TAB PO SCH (09:48)
[2016-08-04] MEDS: LACTOBACILLUS ACIDOPHILUS TAB PO SCH ×4 (09:48→22:30)
[2016-08-04] MEDS: VORICONAZOLE 200 MG TAB PO SCH ×2 (09:48→22:30)
[2016-08-04] MEDS: METOPROLOL TARTRATE 50 MG TAB PO SCH ×2 (09:48→22:30)
[2016-08-04] MEDS: DOXYCYCLINE 100 MG/NS 100 ML IV SCH ×4 (09:48→22:00)
[2016-08-04] MEDS: ACETAMINOPHEN/HYDROcodone 325 MG/5 MG TAB PO PRN ×2 (09:49→16:34)
[2016-08-04] MEDS: POTASSIUM CHLORIDE 10 MEQ CONTROLLED RELEASE TAB PO SCH (09:49)
[2016-08-04] MEDS: predniSONE 20 MG TAB PO SCH (09:49)
[2016-08-04] MEDS: FUROSEMIDE 20 MG TAB PO SCH (09:49)
[2016-08-04] MEDS: BUDESONIDE-FORMOTEROL 160/4.5 MCG INHALER INH SCH ×2 (09:50→22:33)
--- NOTE | 2016-08-04 09:50 | HHI.PR ---
Subjective Remarks Patient seen and examined today. Patient lying in bed comfortably, no new complaints. Afebrile. Tolerating diet. Objective Vitals Vital Signs Date Time Temp Pulse Resp B/P Pulse Ox O2 Delivery O2 Flow Rate FiO2 08/04/16 08:00 96.3 67 20 140/68 94 08/04/16 08:00 99 Nasal Cannula 2.00 08/03/16 21:44 99 Nasal Cannula 2.00 08/03/16 21:20 95 Nasal Cannula 2.00 08/03/16 20:00 97.1 76 22 141/68 95 Manual Cuff/Auscultation I/O 08/03/16 08/03/16 08/03/16 08/04/16 08/04/16 08/04/16 07:00 15:00 23:00 07:00 15:00 23:00 Intake Total 480 ml 360 ml 595 ml 220 ml 100 ml Output Total 2 ml Balance 480 ml 360 ml 593 ml 220 ml 100 ml Intake Oral 480 ml 360 ml 480 ml 220 ml 100 ml IV Total 115 ml Output Urine Total 2 ml # Voids 2 3 2 # Bowel Movements 0 1 1 0 Result Diagram: 08/03/16 0600 08/03/16 0600 Objective Remarks GENERAL: Well-developed, well-nourished, in no acute distress. alert and orientated HEENT: Head is normocephalic without any lesions or masses noted. Facial features are symmetric. Eyes: Extraocular muscles are intact. Conjunctivae were clear. NECK: Supple without any masses. Trachea midline no deviation. CARDIAC: Regular rhythm, regular rate. S1/S2 are heard. No murmurs gallops or rubs. LUNGS: Clear to auscultation bilaterally. No wheeze, rhonchi or rales. No use of accessory muscles on inspiration or expiration. ABDOMEN: Soft, nontender. Nondistended. Bowel sounds heard in all 4 quadrants. No organomegaly or masses. Negative rebound, negative guarding EXTREMITIES: No edema, pulses are equal bilaterally. No cyanosis or clubbing NEUROLOGY: Mood and affect appear appropriate. Cranial nerves II through XII grossly intact. 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 -Bronchial washings culture with Aspergillus niger, on Voriconazole since 06/27, continue IV doxycycline- treatment per ID -Call ID if acute issues develop. ID discussed with Dr. Jhaveri about need for outpt ID follow up. -07/14: LFTs reviewed and normal. Monitor periodically due to Variconazole use. -CT of the chest shows improvement of the pleural effusion, however progressive worsening of acute infection consistent with the history of aspergillosis. This result was discussed with precision devices inspector/tester as well as infectious disease who does not feel that the patient is any worse. He is actually clinically improved. Postdoctoral Fellow requesting repeat CT in 6 weeks Severe sepsis due to cellulitis of the right upper extremity/right olecranon bursitis now resolved. -Previous venous Doppler of the upper extremities with no DVT -US of the right upper extremity with a complex mass overlying the right third finger. S/p I/D of the right hand MRSA abscess and treatment with Vancomycin. -Evaluated by ortho and hand surgery; cleared by hand surgery. Hypernatremia Encourage by mouth intake Continue monitor sodium level COPD exacerbation: Resolved -Patient failed walk test recommended oxygen which he was on prior. -Pulmonology following. Continue O2, nebulizer as needed Pulmonary nodules -Status post bronchoscopy; negative cytology. Repeat CT in 2 months, follow-up with pulmonology as an outpatient. SVT: due to sepsis; s/p Cardizem. -S/p cardiology consultation. -Continue Beta rosy Ischemic cardiomyopathy -S/p stent placement 2001, follow-up angiogram no intervention needed per patient. -Elevated troponin likely due to presenting tachycardia/sepsis. -Echo with EF 35% cautious use of BB hx of COPD -Cardiology reconsulted on 06/05, nonsustained VT felt to be secondary to NAN . Information from Dr Vora shows ECHO May 2016 with normal EF and cath from 2014 (Apr per pt) with stable CAD. Elevated trop likely from sepsis -Continue on aspirin. Continue to monitor. -Continue Lisinopril -Refuses heart healthy diet Acute on chronic systolic CHF exacerbation, resolved -Continue Lasix and monitor electrolytes. Hypertension: Controlled. -Continue lisinopril and metoprolol Diabetes mellitus 2 with previous hypoglycemic episode -No further hypoglycemia. Blood glucose readings [id number] -Patient did not require insulin in over 5 days. Accu-Cheks and sliding so insulin was discontinued -Patient was counseled on refusal of Accu-Cheks and insulin. I have risk of developing DKA. -Hemoglobin A1c 6.8 indicating well controlled diabetes as patient was on insulin previously. -Refuses diabetic diet. Anemia of chronic disease -S/p pRBC transfusion with improved H/H. Hemoglobin stable at 9.5. -Stool occult blood positive 1. GI performed endoscopy which showed gastritis and esophageal ring status post dilatations and biopsy. Ok with GI for aspirin. Refused colonoscopy. -Continue to monitor. C. difficile colitis: -Completed Flagyl 07/06/16. -Monitor electrolytes DVT prophylaxis, SCD's and subcutaneous heparin, patient refusing heparin intermittently Discharge Planning Case management for discharge planning. Latrell Mcnair Aug 04, 2016 09:50
--- NOTE | 2016-08-04 18:42 | HHI.PR ---
Subjective Remarks feels better with antibiotics.and On O2 at 2 L. Ambulating in room. No fever. CT chest shows some change in infiltrates. Objective Vital Signs Date Time Temp Pulse Resp B/P Pulse Ox O2 Delivery O2 Flow Rate FiO2 08/04/16 11:51 99 08/04/16 08:00 96.3 67 20 140/68 94 08/04/16 08:00 99 Nasal Cannula 2.00 08/03/16 21:44 99 Nasal Cannula 2.00 08/03/16 21:20 95 Nasal Cannula 2.00 08/03/16 20:00 97.1 76 22 141/68 95 Manual Cuff/Auscultation I/O 08/03/16 08/03/16 08/03/16 08/04/16 08/04/16 08/04/16 07:00 15:00 23:00 07:00 15:00 23:00 Intake Total 480 ml 360 ml 595 ml 220 ml 820 ml 210 ml Output Total 2 ml Balance 480 ml 360 ml 593 ml 220 ml 820 ml 210 ml Intake Oral 480 ml 360 ml 480 ml 220 ml 820 ml 210 ml IV Total 115 ml Output Urine Total 2 ml # Voids 2 3 2 3 1 # Bowel Movements 0 1 1 0 Result Diagram: 08/03/16 0600 08/03/16 0600 Objective Remarks This is an elderly averagely built white male who is alert. EXTREMITIES: There is no clubbing. There is no leg edema. HEENT: Head normocephalic. Pupils are reactive and equal. Tongue was moist. Throat was clear. Ears, no inflammation. NECK: Supple. No venous distension. No thyromegaly or lymphadenopathy. CHEST: Decreased breath sounds at the bases .Occ basal crackles HEART: The heart sounds are regular S1-S2 with no murmur. No S3. ABDOMEN: The abdomen is soft, nontender. No organomegaly. The bowel sounds are active. EXTREMITIES: No Edema with diminished pulses and joint deformities of the extremities. SKIN: warm, dry. NEUROLOGIC: He is alert and oriented. Moves all extremities.There are no gross deficits. Assessment and Plan Assessment and Plan IMPRESSION 1. Cellulitis of the right upper extremity resolved 2. COPD with emphysema and chronic bronchitis 3. Coronary artery disease with stenting 4. Diabetes mellitus 5. History of hypertension. 6. Left Lung nodules Plan : 1. PT evaluation and ambulate. 2. Cont Nebs bid, duoneb. 3. O2 at 2 L. 4 .lasix 40 mg Po daily. 5. Antibiotics per ID 6. Voriconazole 400 mg PO daily 7. X ray chest in am. 8. Taper Prednisone to 15 mg daily Liv Pinedo MD Aug 04, 2016 18:42
[2016-08-04 19:19] VITALS: O2SAT 94
[2016-08-04] MEDS: RESP: ALBUTEROL 0.63 MG/3 ML NEB (PRN) NEB (19:19)
[2016-08-04 20:00] VITALS: BP 142/79; PULSE 78; RESP 20; TEMP 96.3; O2SAT 94
[2016-08-04] MEDS: ASPIRIN 81 MG CHEW TAB CHEW SCH (22:30)
[2016-08-04] MEDS: LISINOPRIL 20 MG TAB PO SCH (22:31)
[2016-08-04] MEDS: ZOLPIDEM TARTRATE 5 MG TAB PO PRN (23:34)
[2016-08-05 08:00] VITALS: BP 143/72; PULSE 77; RESP 18; TEMP 98.5; O2SAT 100
[2016-08-05] MEDS: FUROSEMIDE 20 MG TAB PO SCH (08:35)
[2016-08-05] MEDS: LACTOBACILLUS ACIDOPHILUS TAB PO SCH ×3 (08:35→17:40)
[2016-08-05] MEDS: predniSONE 20 MG TAB PO SCH (08:35)
[2016-08-05] MEDS: ACETAMINOPHEN/HYDROcodone 325 MG/5 MG TAB PO PRN ×2 (08:35→17:40)
[2016-08-05] MEDS: VORICONAZOLE 200 MG TAB PO SCH ×2 (08:35→21:09)
[2016-08-05] MEDS: PANTOPRAZOLE SOD 20 MG DELAYED RELEASE TAB PO SCH (08:35)
[2016-08-05] MEDS: BUDESONIDE-FORMOTEROL 160/4.5 MCG INHALER INH SCH ×2 (08:36→21:09)
[2016-08-05] MEDS: POTASSIUM CHLORIDE 10 MEQ CONTROLLED RELEASE TAB PO SCH (08:36)
[2016-08-05] MEDS: METOPROLOL TARTRATE 50 MG TAB PO SCH ×2 (08:36→21:10)
[2016-08-05] MEDS: DOXYCYCLINE 100 MG/NS 100 ML IV SCH ×4 (08:36→22:06)
[2016-08-05] MEDS: HEPARIN SODIUM - SQ 10,000 UNITS/ML VIAL SQ SCH ×2 (08:37→21:00)
[2016-08-05 09:09] VITALS: O2SAT 98
--- NOTE | 2016-08-05 12:44 | HHI.PR ---
Subjective Remarks Follow-up for Aspergillus pneumonia. Patient states his shortness of breath is improved. He states he did not require oxygen at all last night. Objective Vitals Vital Signs Date Time Temp Pulse Resp B/P Pulse Ox O2 Delivery O2 Flow Rate FiO2 08/05/16 09:39 98 Room Air 08/05/16 09:09 98 Nasal Cannula 2.00 08/05/16 08:00 98.5 77 18 143/72 100 08/04/16 20:00 96.3 78 20 142/79 94 08/04/16 20:00 94 Room Air 21 08/04/16 19:19 94 21 I/O 08/04/16 08/04/16 08/04/16 08/05/16 08/05/16 08/05/16 07:00 15:00 23:00 07:00 15:00 23:00 Intake Total 220 ml 820 ml 510 ml 60 ml Balance 220 ml 820 ml 510 ml 60 ml Intake Oral 220 ml 820 ml 510 ml 60 ml # Voids 2 3 2 2 # Bowel Movements 0 1 0 Result Diagram: 08/03/16 0600 08/03/16 0600 Imaging Last Impressions Chest X-Ray 08/05/16 1430 Signed Impressions: Service Date/Time: Friday, August 05, 2016 14:47 - CONCLUSION: 1. COPD changes. No acute abnormality identified. 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 Angelina Griffin MD Upper Extremity Ultrasound 06/20/16 0000 Signed Impressions: Service Date/Time: Monday, June 20, 2016 10:13 - CONCLUSION: Negative ultrasound with no evidence of abscess. Beau Croft MD Barium Swallow X-Ray 06/20/16 0000 Signed Impressions: Service Date/Time: Monday, June 20, 2016 17:17 - CONCLUSION: Unremarkable exam with no evidence of stricture or obstruction. Beau Croft MD Elbow X-Ray 06/05/16 0000 Signed Impressions: Service Date/Time: Thursday, June 05, 2016 17:02 - CONCLUSION: Minimal arthritic findings. Prominent soft tissue swelling of the olecranon process indicating possible olecranon bursitis. Matt Sapp MD Objective Remarks GENERAL: Elderly well-nourished, well-developed patient in no apparent distress. CARDIOVASCULAR: Regular rate and rhythm. RESPIRATORY: No accessory muscle use. Clear but significantly diminished breath sounds. GASTROINTESTINAL: Abdomen soft, nontender, nondistended. NEUROLOGICAL: Awake and alert. Witnessed to be ambulating in the sanchez. PSYCHIATRIC: Normal mood and affect. Procedures Incision and drainage of right hand abscess Bronchoscopy EGD with dilatation Urinary Catheter: No Vascular Central Line Catheter: No A/P Problem List: (1) SVT (supraventricular tachycardia) ICD Code: I47.1 Status: Resolved (2) Severe sepsis ICD Code: A41.9 Status: Resolved (3) COPD with acute exacerbation ICD Code: J44.1 Status: Acute (4) Sepsis ICD Code: A41.9 Status: Resolved (5) Cellulitis of right upper extremity ICD Code: L03.113 Status: Resolved (6) Abscess of hand, right ICD Code: L02.511 Status: Resolved (7) Olecranon bursitis, right elbow ICD Code: M70.21 Status: Resolved (8) Dizziness ICD Code: R42 Status: Acute (9) Hypokalemia ICD Code: E87.6 Status: Acute Assessment and Plan Severe sepsis due to cellulitis of the right upper extremity/right olecranon bursitis now resolved. -Previous venous Doppler of the upper extremities with no DVT -US of the right upper extremity with a complex mass overlying the right third finger. S/p I/D of the right hand MRSA abscess and treatment with Vancomycin. -Evaluated by ortho and hand surgery; cleared by hand surgery. Community acquired pneumonia: -Status post treatment with Zosyn and Levaquin. -Bronchial washings culture with Aspergillus niger, on Voriconazole since 06/27- treatment per ID; patient has been on Voriconazole for ~1 month. -Call ID if acute issues develop. ID discussed with Dr. Pinedo about need for outpt ID follow up. -07/14: LFTs reviewed and normal. Monitor periodically due to Variconazole use. -07/26: CT performed with resolution of L sided effusion; radiologist indicates progressive worsening of acute infection consistent with aspergillosis. ID GATE ATTENDANT evaluated patient and he was started on IV Doxycycline and Zosyn in additon to continuing Voriconazole. -07/27: I spoke with Dr. Pinedo at length who has spoken with a different radiologist in regards to CT and agree that infection is not worse. He advises continuing Voriconazole and repeat chest CT in 6 weeks. He also placed patient on Prednisone. -07/28: I spoke with Dr. Felder who agrees patient is not clinically worse but preliminary sputum culture has grown gram positive cocci in pairs and clusters so she has kept patient on Doxycycline and discontinued Zosyn. ID following. -Final sputum culture with heavy growth normal respiratory enio; will defer to ID. -08/05: I spoke with Dr. Pinedo today who advises ordering repeat chest x-ray and he will review later. Also advises tapering prednisone to 15 mg po daily. COPD exacerbation: still with dyspnea on exertion -Patient failed walk test recommended oxygen which he was on prior. Continue O2 via [place]. -Pulmonology following. Per pulmonology, continue Duonebs bid; O2 at 2L. Pulmonary nodules -Status post bronchoscopy; negative cytology. Repeat CT in 2 months, follow-up with pulmonology as an outpatient. SVT: due to sepsis; s/p Cardizem. -S/p cardiology consultation. -Continue Beta rosy Ischemic cardiomyopathy -S/p stent placement 2001, follow-up angiogram no intervention needed per patient. -Elevated troponin likely due to presenting tachycardia/sepsis. -Echo with EF 35% cautious use of BB hx of COPD -Cardiology reconsulted on 06/05, nonsustained VT felt to be secondary to NAN . Information from Dr Vora shows ECHO May 2016 with normal EF and cath from 2014 (Apr per pt) with stable CAD. Elevated trop likely from sepsis -Continue on aspirin. Continue to monitor. -Continue Lisinopril -Refuses heart healthy diet Acute on chronic systolic CHF exacerbation -Continue Lasix and monitor electrolytes. Hypertension: Controlled. -Continue lisinopril and metoprolol Diabetes mellitus 2 with previous hypoglycemic episode -No further hypoglycemia. -Patient did not require insulin in over 5 days so Accu-Cheks and sliding so insulin was discontinued. -Patient was counseled on refusal of Accu-Cheks and insulin and risk of developing DKA. -Hemoglobin A1c 6.8 indicating well controlled diabetes as patient was on insulin previously. -Refuses diabetic diet. Anemia of chronic disease -S/p pRBC transfusion with improved H/H. Hemoglobin stable at 9.5. -Stool occult blood positive 1. GI performed endoscopy which showed gastritis and esophageal ring status post dilatations and biopsy. Ok with GI for aspirin. Refused colonoscopy. -Continue to monitor. Dry eyes: Continue with eye lubricants. C. difficile colitis: -Completed Flagyl 07/06/16. -Monitor electrolytes Hypokalemia: Resolved. Hypernatremia: Stable Hyperchloremia: Improved Minor epistaxis with nose blowing: Likely attributed to dry nares. Patient refuses humidified oxygen as he states it causes him to have too much phlegm. Hemoglobin and platelets stable. Continue nasal saline. Patient advised not to pick at the nose. L shoulder pain: chronic; likely rotator cuff injury. I spoke with PT to work with patient. Patient states he saw orthopedics in the past for this and x-rays were performed. No new injury. No x-rays needed. I explained to the patient that he likely has a rotator cuff injury and new x-rays are not going to be helpful. He is advised that he will likely need an outpatient MRI with orthopedics. Chest x-ray from 07/02 shows a previous fracture of the left proximal humerus. Patient likely has chronic pain from this. I will not be ordering new x-rays as there is no new injury reported. Medication non-compliance: Patient refused several medications due to nausea related to taking so many at one time. I switched his aspirin and lisinopril to nighttime. I discontinued the potassium phosphate which he has been on for one month and is not necessary at this time. Hopefully patient's compliance will improve now. DVT prophylaxis, SCD's and subcutaneous heparin. Patient refused heparin. Discharge Planning PT recommends home with outpatient PT/pulmonary rehab. Continue voriconazole by mouth until 07/27. Patient is homeless so cannot get oxygen unless he has a place to live. Cannot be placed in fdc or SNF due to criminal background. Needs pulmonary follow-up for lung nodules. Case management following. Zoë Graham Aug 05, 2016 12:44
--- NOTE | 2016-08-05 15:46 | RADHPO ---
EXAM DATE/TIME: 08/05/2016 14:47 [facility] COMPARISON: CHEST SINGLE AP, July 02, 2016, 7:00. INDICATIONS : Shortness of breath; Evaluate for pneumonia. MEDICAL HISTORY : Hypertension. Myocardial infarction. Aneurysm, abdominal. COPD. Bladder cancer. Afib. SURGICAL HISTORY : Coronary stents. ENCOUNTER: Subsequent ACUITY: 2 months PAIN SCORE: 0/10 LOCATION: Bilateral chest FINDINGS: The heart is normal in size. There are COPD changes. The visualized bony structures are grossly intac t. The exam is stable compared to previous dated 07/02/16. CONCLUSION: 1. COPD changes. No acute abnormality identified. Jorge L Grace MD on August 05, 2016 at 15:11 Board Certified Radiologist. This report was verified electronically.
[2016-08-05 20:00] VITALS: BP 155/73; PULSE 70; RESP 21; TEMP 97.4; O2SAT 97
[2016-08-05] MEDS: LISINOPRIL 20 MG TAB PO SCH (21:10)
[2016-08-05] MEDS: ASPIRIN 81 MG CHEW TAB CHEW SCH (21:10)
[2016-08-05 21:33] VITALS: O2SAT 93
[2016-08-05] MEDS: RESP: ALBUTEROL 0.63 MG/3 ML NEB (PRN) NEB (21:33)
[2016-08-05] MEDS: ZOLPIDEM TARTRATE 5 MG TAB PO PRN (22:07)
[2016-08-05] MEDS: SIMETHICONE 80 MG CHEWABLE TAB CHEW PRN (22:07)
[2016-08-06 08:00] VITALS: BP 164/79; PULSE 67; RESP 20; TEMP 96.2; O2SAT 97
[2016-08-06] MEDS: HEPARIN SODIUM - SQ 10,000 UNITS/ML VIAL SQ SCH ×2 (08:39→21:00)
[2016-08-06] MEDS: POTASSIUM CHLORIDE 10 MEQ CONTROLLED RELEASE TAB PO SCH (08:39)
[2016-08-06] MEDS: LACTOBACILLUS ACIDOPHILUS TAB PO SCH ×3 (08:39→18:01)
[2016-08-06] MEDS: FUROSEMIDE 20 MG TAB PO SCH (08:39)
[2016-08-06] MEDS: PANTOPRAZOLE SOD 20 MG DELAYED RELEASE TAB PO SCH (08:39)
[2016-08-06] MEDS: METOPROLOL TARTRATE 50 MG TAB PO SCH ×2 (08:39→21:19)
[2016-08-06] MEDS: BUDESONIDE-FORMOTEROL 160/4.5 MCG INHALER INH SCH ×2 (08:40→21:21)
[2016-08-06] MEDS: DOXYCYCLINE 100 MG/NS 100 ML IV SCH ×2 (08:43)
[2016-08-06] MEDS: ACETAMINOPHEN/HYDROcodone 325 MG/5 MG TAB PO PRN (08:45)
[2016-08-06] MEDS ORDERED: predniSONE 5 MG TAB PO SCH (09:00)
[2016-08-06] MEDS: VORICONAZOLE 200 MG TAB PO SCH ×2 (09:00→21:25)
[2016-08-06] MEDS: RESP: ALBUTEROL 0.63 MG/3 ML NEB (PRN) NEB ×2 (09:41→21:48)
[2016-08-06 09:45] VITALS: O2SAT 90
[2016-08-06] MEDS: SIMETHICONE 80 MG CHEWABLE TAB CHEW PRN (11:31)
--- NOTE | 2016-08-06 11:40 | HHI.PR ---
Subjective Remarks Follow-up for Aspergillus pneumonia. Patient is anxious to go home. He complains of worsening swelling in his left leg for the past 2 days. He has a history of CHF. Objective Vitals Vital Signs Date Time Temp Pulse Resp B/P Pulse Ox O2 Delivery O2 Flow Rate FiO2 08/06/16 09:45 90 21 08/05/16 21:33 93 21 08/05/16 20:00 98 Room Air 08/05/16 20:00 97.4 70 21 155/73 97 I/O 08/05/16 08/05/16 08/05/16 08/06/16 08/06/16 08/06/16 07:00 15:00 23:00 07:00 15:00 23:00 Intake Total 60 ml 810 ml 480 ml 480 ml Balance 60 ml 810 ml 480 ml 480 ml Intake Oral 60 ml 810 ml 480 ml 480 ml # Voids 2 3 2 2 # Bowel Movements 0 1 Result Diagram: 08/03/16 0600 08/03/16 0600 Imaging Last Impressions Chest X-Ray 08/05/16 1430 Signed Impressions: Service Date/Time: Friday, August 05, 2016 14:47 - CONCLUSION: 1. COPD changes. No acute abnormality identified. 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 Angelina Griffin MD Upper Extremity Ultrasound 06/20/16 0000 Signed Impressions: Service Date/Time: Monday, June 20, 2016 10:13 - CONCLUSION: Negative ultrasound with no evidence of abscess. Beau Croft MD Barium Swallow X-Ray 06/20/16 0000 Signed Impressions: Service Date/Time: Monday, June 20, 2016 17:17 - CONCLUSION: Unremarkable exam with no evidence of stricture or obstruction. Beau Croft MD Elbow X-Ray 06/05/16 0000 Signed Impressions: Service Date/Time: June 17:02 - CONCLUSION: Minimal arthritic findings. Prominent soft tissue swelling of the olecranon process indicating possible olecranon bursitis. Matt Sapp MD Objective Remarks GENERAL: Elderly well-nourished, well-developed patient in no apparent distress. CARDIOVASCULAR: Regular rate and rhythm. RESPIRATORY: No accessory muscle use. Clear but significantly diminished breath sounds. GASTROINTESTINAL: Abdomen soft, nontender, nondistended. MUSCULOSKELETAL: Pitting edema bilateral lower legs and feet, worse on the left. The patient has no tenderness to palpation over the calves or left popliteal region. NEUROLOGICAL: Awake and alert. Witnessed to be ambulating in the [place]anchez. PSYCHIATRIC: Normal mood and affect. Procedures Incision and drainage of right hand abscess Bronchoscopy EGD with dilatation Urinary Catheter: No Vascular Central Line Catheter: No A/P Problem List: (1) SVT (supraventricular tachycardia) ICD Code: I47.1 Status: Resolved (2) Severe sepsis ICD Code: A41.9 Status: Resolved (3) COPD with acute exacerbation ICD Code: J44.1 Status: Acute (4) Sepsis ICD Code: A41.9 Status: Resolved (5) Cellulitis of right upper extremity ICD Code: L03.113 Status: Resolved (6) Abscess of hand, right ICD Code: L02.511 Status: Resolved (7) Olecranon bursitis, right elbow ICD Code: M70.21 Status: Resolved (8) Dizziness ICD Code: R42 Status: Acute (9) Hypokalemia ICD Code: E87.6 Status: Acute Assessment and Plan Severe sepsis due to cellulitis of the right upper extremity/right olecranon bursitis now resolved. -Previous venous Doppler of the upper extremities with no DVT -US of the right upper extremity with a complex mass overlying the right third finger. S/p I/D of the right hand MRSA abscess and treatment with Vancomycin. -Evaluated by ortho and hand surgery; cleared by hand surgery. Community acquired pneumonia: -Status post treatment with Zosyn and Levaquin. -Bronchial washings culture with Aspergillus niger, on Voriconazole since 06/27- treatment per ID; patient has been on Voriconazole for ~1 month. -Call ID if acute issues develop. ID discussed with Dr. Pinedo about need for outpt ID follow up. -07/14: LFTs reviewed and normal. Monitor periodically due to Variconazole use. -07/26: CT performed with resolution of L sided effusion; radiologist indicates progressive worsening of acute infection consistent with aspergillosis. ID COST COORDINATOR evaluated patient and he was started on IV Doxycycline and Zosyn in additon to continuing Voriconazole. -07/27: I spoke with Dr. Pinedo at length who has spoken with a different radiologist in regards to CT and agree that infection is not worse. He advises continuing Voriconazole and repeat chest CT in 6 weeks. He also placed patient on Prednisone. -07/28: I spoke with Dr. Felder who agrees patient is not clinically worse but preliminary sputum culture has grown gram positive cocci in pairs and clusters so she has kept patient on Doxycycline and discontinued Zosyn. ID following. -Final sputum culture with heavy growth normal respiratory enio; will defer to ID. -08/05: I spoke with Dr. Pinedo today who advises ordering repeat chest x-ray and he will review later. Also advises tapering prednisone to 15 mg po daily. -08/06: Chest x-ray 08/05 stable. COPD exacerbation: still with dyspnea on exertion -Patient failed walk test recommended oxygen which he was on prior. Continue O2 via NC. -Pulmonology following. Per pulmonology, continue Duonebs bid; O2 at 2L. Pulmonary nodules -Status post bronchoscopy; negative cytology. Repeat CT in 2 months, follow-up with pulmonology as an outpatient. SVT: due to sepsis; s/p Cardizem. -S/p cardiology consultation. -Continue Beta rosy Ischemic cardiomyopathy -S/p stent placement 2001, follow-up angiogram no intervention needed per patient. -Elevated troponin likely due to presenting tachycardia/sepsis. -Echo with EF 35% cautious use of BB hx of COPD -Cardiology reconsulted on 06/05, nonsustained VT felt to be secondary to NAN . Information from Dr Vora shows ECHO May 2016 with normal EF and cath from 2014 (Apr per pt) with stable CAD. Elevated trop likely from sepsis -Continue on aspirin. Continue to monitor. -Continue Lisinopril -Refuses heart healthy diet Acute on chronic systolic CHF exacerbation -Continue Lasix and monitor electrolytes. -Patient complains of worsening left leg edema past 2 days; pitting in bilateral lower extremities on exam, worse on L. It is more likely edema is due to his CHF rather than a DVT. Patient is advised to elevate his legs. Continue Lasix, can consider increasing dose. If swelling worsens or posterior leg pain develops, will need to perform Doppler US. Hypertension: -Continue lisinopril and metoprolol -Patient has been hypertensive since 08/02. BP 164/79 prior to med administration this morning. Wondering if prednisone use could be contributing to this as well. Will recheck BP now. May need to increase Lisinopril dose. Diabetes mellitus 2 with previous hypoglycemic episode -No further hypoglycemia. -Patient did not require insulin in over 5 days so Accu-Cheks and sliding so insulin was discontinued. -Patient was counseled on refusal of Accu-Cheks and insulin and risk of developing DKA. -Hemoglobin A1c 6.8 indicating well controlled diabetes as patient was on insulin previously. -Refuses diabetic diet. Anemia of chronic disease -S/p pRBC transfusion with improved H/H. Hemoglobin stable at 9.5. -Stool occult blood positive 1. GI performed endoscopy which showed gastritis and esophageal ring status post dilatations and biopsy. Ok with GI for aspirin. Refused colonoscopy. -Continue to monitor. Dry eyes: Continue with eye lubricants. C. difficile colitis: -Completed Flagyl 07/06/16. -Monitor electrolytes Hypokalemia: Resolved. Hypernatremia: Stable Hyperchloremia: Improved Minor epistaxis with nose blowing: Likely attributed to dry nares. Patient refuses humidified oxygen as he states it causes him to have too much phlegm. Hemoglobin and platelets stable. Continue nasal saline. Patient advised not to pick at the nose. L shoulder pain: chronic; likely rotator cuff injury. I spoke with PT to work with patient. Patient states he saw orthopedics in the past for this and x-rays were performed. No new injury. No x-rays needed. I explained to the patient that he likely has a rotator cuff injury and new x-rays are not going to be helpful. He is advised that he will likely need an outpatient MRI with orthopedics. Chest x-ray from 07/02 shows a previous fracture of the left proximal humerus. Patient likely has chronic pain from this. I will not be ordering new x-rays as there is no new injury reported. Medication non-compliance: Patient refused several medications due to nausea related to taking so many at one time. I switched his aspirin and lisinopril to nighttime. I discontinued the potassium phosphate which he has been on for one month and is not necessary at this time. Hopefully patient's compliance will improve now. DVT prophylaxis, SCD's and subcutaneous heparin. Patient has been refusing heparin, but did receive it this morning. Discharge Planning PT recommends home with outpatient PT/pulmonary rehab. Continue voriconazole by mouth until 07/27. Patient is homeless so cannot get oxygen unless he has a place to live. Cannot be placed in senior care or SNF due to criminal background. Needs pulmonary follow-up for lung nodules. Case management following. Zoë Graham Aug 06, 2016 11:40
[2016-08-06 16:51] VITALS: BP 138/72
--- NOTE | 2016-08-06 17:22 | HHI.PR ---
Subjective Remarks Improved further. Off O2 sat 97. Ambulating in room. No fever. Chest X ray showed COPD changes. Objective Vital Signs Date Time Temp Pulse Resp B/P Pulse Ox O2 Delivery O2 Flow Rate FiO2 08/06/16 16:51 138/72 08/06/16 09:45 90 21 08/06/16 08:00 96.2 67 20 164/79 97 08/05/16 21:33 93 21 08/05/16 20:00 98 Room Air 08/05/16 20:00 97.4 70 21 155/73 97 I/O 08/05/16 08/05/16 08/05/16 08/06/16 08/06/16 08/06/16 07:00 15:00 23:00 07:00 15:00 23:00 Intake Total 60 ml 810 ml 480 ml 480 ml 1000 ml Balance 60 ml 810 ml 480 ml 480 ml 1000 ml Intake Oral 60 ml 810 ml 480 ml 480 ml 1000 ml # Voids 2 3 2 2 5 # Bowel Movements 0 1 0 Result Diagram: 08/03/16 0608/03/16 0600 Objective Remarks This is an elderly averagely built white male who is alert. EXTREMITIES: There is no clubbing. There is no leg edema. HEENT: Head normocephalic. Pupils are reactive and equal. Throat was clear. Ears, no inflammation. NECK: Supple. No venous distension. No thyromegaly or lymphadenopathy. CHEST: Decreased breath sounds at the bases .Occ wheeze . HEART: The heart sounds are regular S1-S2 with no murmur. No S3. ABDOMEN: The abdomen is soft, nontender. No organomegaly. The bowel sounds are active. EXTREMITIES: 1 + Edema with diminished pulses and joint deformities of the extremities. SKIN: warm, dry. NEUROLOGIC: He is alert and oriented. Moves all extremities.There are no gross deficits. Assessment and Plan Assessment and Plan IMPRESSION 1. Cellulitis of the right upper extremity resolved 2. COPD with emphysema and chronic bronchitis 3. Coronary artery disease with stenting 4. Diabetes mellitus 5. History of hypertension. 6. Left Lung nodules/Aspergillus Pneumonia Plan : 1. PT evaluation and ambulate. 2. Cont Nebs bid, duoneb. 3. O2 at 2 L.PRN and at HS 4 .lasix to 20 mg Po daily. 5. Switch Antibiotics to Doxycycline 100 mg bid X 5 days 6. Voriconazole 400 mg PO daily 7. CT chest in mid september 8. Taper Prednisone to 10 mg daily x 1 week and then 5 mg daily X 2 weeks and stop 9. Liver profile next week Liv Pinedo MD Aug 06, 2016 17:22
[2016-08-06 20:00] VITALS: BP 142/75; PULSE 84; RESP 20; TEMP 97; O2SAT 95
[2016-08-06] MEDS: DOXYCYCLINE HYCLATE 100 MG CAP PO SCH (21:19)
[2016-08-06] MEDS: ASPIRIN 81 MG CHEW TAB CHEW SCH (21:19)
[2016-08-06] MEDS: LISINOPRIL 20 MG TAB PO SCH (21:20)
[2016-08-06] MEDS: ZOLPIDEM TARTRATE 5 MG TAB PO PRN (21:25)
[2016-08-06 21:50] VITALS: O2SAT 94
[2016-08-07 08:00] VITALS: BP 168/78; PULSE 80; RESP 20; TEMP 97.1; O2SAT 93
[2016-08-07] MEDS: HEPARIN SODIUM - SQ 10,000 UNITS/ML VIAL SQ SCH ×3 (09:00→21:00)
--- NOTE | 2016-08-07 09:39 | HHI.PR ---
Subjective Remarks Follow-up for Aspergillus pneumonia. Patient states he slept without his oxygen all night. Objective Vitals Vital Signs Date Time Temp Pulse Resp B/P Pulse Ox O2 Delivery O2 Flow Rate FiO2 08/07/16 08:00 97.1 80 20 168/78 93 08/06/16 21:50 94 21 08/06/16 20:00 97.0 84 20 142/75 95 08/06/16 20:00 98 Room Air 08/06/16 16:51 138/72 08/06/16 09:45 90 21 I/O 08/06/16 08/06/16 08/06/16 08/07/16 08/07/16 08/07/16 07:00 15:00 23:00 07:00 15:00 23:00 Intake Total 480 ml 1000 ml 360 ml 360 ml Balance 480 ml 1000 ml 360 ml 360 ml Intake Oral 480 ml 1000 ml 360 ml 360 ml # Voids 2 5 2 2 # Bowel Movements 0 Result Diagram: 08/03/16 0608/03/16 0600 Objective Remarks GENERAL: Elderly well-nourished, well-developed patient in no apparent distress. CARDIOVASCULAR: Regular rate and rhythm. RESPIRATORY: No accessory muscle use. Clear but diminished breath sounds. GASTROINTESTINAL: Abdomen soft, nontender, nondistended. MUSCULOSKELETAL: Pitting edema bilateral lower legs and feet, worse on the left 2+. The patient has no tenderness to palpation over the left calf, popliteal region, or posterior thigh. NEUROLOGICAL: Awake and alert. PSYCHIATRIC: Normal mood and affect. Procedures Incision and drainage of right hand abscess Bronchoscopy EGD with dilatation Urinary Catheter: No Vascular Central Line Catheter: No A/P Problem List: (1) SVT (supraventricular tachycardia) ICD Code: I47.1 Status: Resolved (2) Severe sepsis ICD Code: A41.9 Status: Resolved (3) COPD with acute exacerbation ICD Code: J44.1 Status: Acute (4) Sepsis ICD Code: A41.9 Status: Resolved (5) Cellulitis of right upper extremity ICD Code: L03.113 Status: Resolved (6) Abscess of hand, right ICD Code: L02.511 Status: Resolved (7) Olecranon bursitis, right elbow ICD Code: M70.21 Status: Resolved (8) Dizziness ICD Code: R42 Status: Acute (9) Hypokalemia ICD Code: E87.6 Status: Acute Assessment and Plan Severe sepsis due to cellulitis of the right upper extremity/right olecranon bursitis now resolved. -Previous venous Doppler of the upper extremities with no DVT -US of the right upper extremity with a complex mass overlying the right third finger. S/p I/D of the right hand MRSA abscess and treatment with Vancomycin. -Evaluated by ortho and hand surgery; cleared by hand surgery. Community acquired pneumonia: -Status post treatment with Zosyn and Levaquin. -Bronchial washings culture with Aspergillus niger, on Voriconazole since 06/27- treatment per ID; patient has been on Voriconazole for ~1 month. -Call ID if acute issues develop. ID discussed with Dr. Pinedo about need for outpt ID follow up. -07/14: LFTs reviewed and normal. Monitor periodically due to Variconazole use. -07/26: CT performed with resolution of L sided effusion; radiologist indicates progressive worsening of acute infection consistent with aspergillosis. ID PRESCHOOL TEACHER evaluated patient and he was started on IV Doxycycline and Zosyn in additon to continuing Voriconazole. -07/27: I spoke with Dr. Pinedo at length who has spoken with a different radiologist in regards to CT and agree that infection is not worse. He advises continuing Voriconazole and repeat chest CT in 6 weeks. He also placed patient on Prednisone. -07/28: I spoke with Dr. Felder who agrees patient is not clinically worse but preliminary sputum culture has grown gram positive cocci in pairs and clusters so she has kept patient on Doxycycline and discontinued Zosyn. ID following. -Final sputum culture with heavy growth normal respiratory enio; will defer to ID. -Chest x-ray 08/05 with COPD changes. -08/06: Dr. Pinedo called and informed me that the patient's chest x-ray performed yesterday appears good. He advises stopping the IV doxycycline and keeping the patient on doxycycline 100 mg by mouth twice a day for 5 days. He advises tapering the prednisone, changing it to 10 mg by mouth daily x 1 week and decreasing it to 5 mg daily x 2 weeks and then stop. He states the patient will need to remain on Voriconazole for 4 months total. He states patient will need a repeat CT in mid September. Dr. Pinedo states he will be out of town from this Thursday through August 26 but will be back in town on the and will re- evaluate the patient at that time if he is still in the hospital. Advises obtaining liver profile next week. COPD exacerbation: still with dyspnea on exertion -Patient failed walk test recommended oxygen which he was on prior. Continue O2 via [place]. -Pulmonology following. Per pulmonology, continue Duonebs bid; O2 at 2L. Pulmonary nodules -Status post bronchoscopy; negative cytology. Repeat CT in 2 months, follow-up with pulmonology as an outpatient. SVT: due to sepsis; s/p Cardizem. -S/p cardiology consultation. -Continue Beta rosy Ischemic cardiomyopathy -S/p stent placement 2001, follow-up angiogram no intervention needed per patient. -Elevated troponin likely due to presenting tachycardia/sepsis. -Echo with EF 35% cautious use of BB hx of COPD -Cardiology reconsulted on 06/05, nonsustained VT felt to be secondary to NAN . Information from Dr Vora shows ECHO May 2016 with normal EF and cath from 2014 (Apr per pt) with stable CAD. Elevated trop likely from sepsis -Continue on aspirin. Continue to monitor. -Continue Lisinopril -Refuses heart healthy diet Acute on chronic systolic CHF exacerbation -Continue Lasix and monitor electrolytes. -08/06: Patient complains of worsening left leg edema past 2 days; pitting in bilateral lower extremities on exam, worse on L. It is more likely edema is due to his CHF rather than a DVT. Patient is advised to elevate his legs. -08/07: Will increase Lasix to 20 mg bid as he was on 40 mg daily before. Increase K+ supplementation to 20 mEq daily. Hypokalemia: New BMP today reviewed with K+ of 3.2. Attributed to Lasix use. Order 40 mEq KCl now. Recheck K+ and Mg in the am. Hypernatremia: Improved. Hyperchloremia: Resolved. Hypertension: Worse -Continue lisinopril and metoprolol -Patient has been increasingly hypertensive since 08/02. SBP again in the 160's this morning prior to medication administration. Lasix increased as above, nighttime dose added. Diabetes mellitus 2 with previous hypoglycemic episode -No further hypoglycemia. -Patient did not require insulin in over 5 days so Accu-Cheks and sliding so insulin was discontinued. -Patient was counseled on refusal of Accu-Cheks and insulin and risk of developing DKA. -Hemoglobin A1c 6.8 indicating well controlled diabetes as patient was on insulin previously. -Refuses diabetic diet. Anemia of chronic disease -S/p pRBC transfusion with improved H/H. Hemoglobin stable at 9.5. -Stool occult blood positive 1. GI performed endoscopy which showed gastritis and esophageal ring status post dilatations and biopsy. Ok with GI for aspirin. Refused colonoscopy. -Continue to monitor. Dry eyes: Continue with eye lubricants. C. difficile colitis: -Completed Flagyl 07/06/16. -Monitor electrolytes Minor epistaxis with nose blowing: Likely attributed to dry nares. Patient refuses humidified oxygen as he states it causes him to have too much phlegm. Hemoglobin and platelets stable. Continue nasal saline. Patient advised not to pick at the nose. L shoulder pain: chronic; likely rotator cuff injury. I spoke with PT to work with patient. Patient states he saw orthopedics in the past for this and x-rays were performed. No new injury. No x-rays needed. I explained to the patient that he likely has a rotator cuff injury and new x-rays are not going to be helpful. He is advised that he will likely need an outpatient MRI with orthopedics. Chest x-ray from 07/02 shows a previous fracture of the left proximal humerus. Patient likely has chronic pain from this. I will not be ordering new x-rays as there is no new injury reported. Medication non-compliance: Patient refused several medications due to nausea related to taking so many at one time. I switched his aspirin and lisinopril to nighttime. I discontinued the potassium phosphate which he has been on for one month and is not necessary at this time. Hopefully patient's compliance will improve now. DVT prophylaxis, SCD's and subcutaneous heparin. Patient has been refusing heparin, but did receive it this morning. Discharge Planning PT recommends home with outpatient PT/pulmonary rehab. Continue voriconazole by mouth until 07/27. Patient is homeless so cannot get oxygen unless he has a place to live. Cannot be placed in nursing home or SNF due to criminal background. Needs pulmonary follow-up for lung nodules. Case management following. Zoë Graham Aug 07, 2016 09:39
[2016-08-07 10:00] VITALS: O2SAT 93
[2016-08-07] MEDS: VORICONAZOLE 200 MG TAB PO SCH ×2 (10:04→21:52)
[2016-08-07] MEDS: predniSONE 10 MG TAB PO SCH (10:04)
[2016-08-07] MEDS: DOXYCYCLINE HYCLATE 100 MG CAP PO SCH ×2 (10:05→21:52)
[2016-08-07] MEDS: POTASSIUM CHLORIDE 10 MEQ CONTROLLED RELEASE TAB PO SCH (10:05)
[2016-08-07] MEDS: LACTOBACILLUS ACIDOPHILUS TAB PO SCH ×3 (10:05→18:13)
[2016-08-07] MEDS: METOPROLOL TARTRATE 50 MG TAB PO SCH ×2 (10:05→21:51)
[2016-08-07] MEDS: FUROSEMIDE 20 MG TAB PO SCH ×2 (10:05→21:51)
[2016-08-07] MEDS: PANTOPRAZOLE SOD 20 MG DELAYED RELEASE TAB PO SCH (10:05)
[2016-08-07] MEDS: BUDESONIDE-FORMOTEROL 160/4.5 MCG INHALER INH SCH ×2 (10:09→21:53)
[2016-08-07 12:19] LABS: POTASSIUM 3.2 MEQ/L (3.5-5.1)
[2016-08-07 12:22] LABS: BICARBONATE 28.1 MEQ/L (21.0-32.0)
[2016-08-07] MEDS ORDERED: POTASSIUM CHLORIDE 20 MEQ CONTROLLED RELEASE TAB PO ONE (19:00)
[2016-08-07 20:00] VITALS: BP 153/83; PULSE 81; RESP 22; TEMP 96.7; O2SAT 95
[2016-08-07] MEDS: LISINOPRIL 20 MG TAB PO SCH (21:51)
[2016-08-07] MEDS: ASPIRIN 81 MG CHEW TAB CHEW SCH (21:51)
[2016-08-07] MEDS: ZOLPIDEM TARTRATE 5 MG TAB PO PRN (23:17)
[2016-08-07] MEDS: ACETAMINOPHEN/HYDROcodone 325 MG/5 MG TAB PO PRN (23:17)
[2016-08-08 07:44] LABS: POTASSIUM 3.8 MEQ/L (3.5-5.1)
[2016-08-08 07:48] LABS: MAGNESIUM 1.7 MG/DL (1.5-2.5)
[2016-08-08 08:00] VITALS: BP 153/79; PULSE 88; RESP 20; TEMP 96.6; O2SAT 94
[2016-08-08] MEDS: RESP: ALBUTEROL 0.63 MG/3 ML NEB (PRN) NEB ×2 (08:07→13:48)
[2016-08-08 08:08] VITALS: O2SAT 93
[2016-08-08] MEDS: ACETAMINOPHEN/HYDROcodone 325 MG/5 MG TAB PO PRN ×2 (08:19→21:42)
[2016-08-08] MEDS: PANTOPRAZOLE SOD 20 MG DELAYED RELEASE TAB PO SCH (08:19)
[2016-08-08] MEDS: VORICONAZOLE 200 MG TAB PO SCH ×2 (08:19→21:32)
[2016-08-08] MEDS: LACTOBACILLUS ACIDOPHILUS TAB PO SCH ×3 (08:19→17:18)
[2016-08-08] MEDS: predniSONE 10 MG TAB PO SCH (08:19)
[2016-08-08] MEDS: FUROSEMIDE 20 MG TAB PO SCH ×2 (08:20→21:32)
[2016-08-08] MEDS: METOPROLOL TARTRATE 50 MG TAB PO SCH ×2 (08:20→21:32)
[2016-08-08] MEDS: DOXYCYCLINE HYCLATE 100 MG CAP PO SCH ×2 (08:20→21:32)
[2016-08-08] MEDS: POTASSIUM CHLORIDE 10 MEQ CONTROLLED RELEASE TAB PO SCH (08:21)
[2016-08-08] MEDS: BUDESONIDE-FORMOTEROL 160/4.5 MCG INHALER INH SCH ×2 (08:22→21:33)
[2016-08-08] MEDS: HEPARIN SODIUM - SQ 10,000 UNITS/ML VIAL SQ SCH ×2 (08:22→21:00)
--- NOTE | 2016-08-08 10:43 | HHI.PR ---
Subjective Remarks Follow-up for Aspergillus pneumonia. Patient states he was spitting up. He admits to getting short of breath with activity but doesn't wear his oxygen. Objective Vitals Vital Signs Date Time Temp Pulse Resp B/P Pulse Ox O2 Delivery O2 Flow Rate FiO2 08/08/16 08:08 93 21 08/08/16 08:00 96.6 88 20 153/79 94 08/07/16 20:18 21 08/07/16 20:00 96.7 81 22 153/83 95 I/O 08/07/16 08/07/16 08/07/16 08/08/16 08/08/16 08/08/16 07:00 15:00 23:00 07:00 15:00 23:00 Intake Total 360 ml 720 ml 482 ml 480 ml Balance 360 ml 720 ml 482 ml 480 ml Intake Oral 360 ml 720 ml 480 ml 480 ml IV Total 2 ml # Voids 2 1 3 2 # Bowel Movements 0 0 Result Diagram: 08/08/16 0705 Objective Remarks GENERAL: Elderly well-nourished, well-developed patient in no apparent distress. CARDIOVASCULAR: Regular rate and rhythm. RESPIRATORY: No accessory muscle use. CTAB. No O2 in place. GASTROINTESTINAL: Abdomen soft, nontender, nondistended. MUSCULOSKELETAL: Pitting edema bilateral lower legs and feet, worse on the left 2+. The patient has no tenderness to palpation over the left calf, popliteal region, or posterior thigh. NEUROLOGICAL: Awake and alert. PSYCHIATRIC: Normal mood and affect. Procedures Incision and drainage of right hand abscess Bronchoscopy EGD with dilatation Urinary Catheter: No Vascular Central Line Catheter: No A/P Problem List: (1) SVT (supraventricular tachycardia) ICD Code: I47.1 Status: Resolved (2) Severe sepsis ICD Code: A41.9 Status: Resolved (3) COPD with acute exacerbation ICD Code: J44.1 Status: Acute (4) Sepsis ICD Code: A41.9 Status: Resolved (5) Cellulitis of right upper extremity ICD Code: L03.113 Status: Resolved (6) Abscess of hand, right ICD Code: L02.511 Status: Resolved (7) Olecranon bursitis, right elbow ICD Code: M70.21 Status: Resolved (8) Dizziness ICD Code: R42 Status: Acute (9) Hypokalemia ICD Code: E87.6 Status: Resolved Assessment and Plan Severe sepsis due to cellulitis of the right upper extremity/right olecranon bursitis now resolved. -Previous venous Doppler of the upper extremities with no DVT -US of the right upper extremity with a complex mass overlying the right third finger. S/p I/D of the right hand MRSA abscess and treatment with Vancomycin. -Evaluated by ortho and hand surgery; cleared by hand surgery. Community acquired pneumonia: -Status post treatment with Zosyn and Levaquin. -Bronchial washings culture with Aspergillus niger, on Voriconazole since 06/27- treatment per ID; patient has been on Voriconazole for ~1 month. -Call ID if acute issues develop. ID discussed with Dr. Pinedo about need for outpt ID follow up. -07/14: LFTs reviewed and normal. Monitor periodically due to Variconazole use. -07/26: CT performed with resolution of L sided effusion; radiologist indicates progressive worsening of acute infection consistent with aspergillosis. ID GATE TECHNICIAN evaluated patient and he was started on IV Doxycycline and Zosyn in additon to continuing Voriconazole. -07/27: I spoke with Dr. Pinedo at length who has spoken with a different radiologist in regards to CT and agree that infection is not worse. He advises continuing Voriconazole and repeat chest CT in 6 weeks. He also placed patient on Prednisone. -07/28: I spoke with Dr. Felder who agrees patient is not clinically worse but preliminary sputum culture has grown gram positive cocci in pairs and clusters so she has kept patient on Doxycycline and discontinued Zosyn. ID following. -Final sputum culture with heavy growth normal respiratory enio; will defer to ID. -Chest x-ray 08/05 with COPD changes. -08/06: Dr. Pinedo called and informed me that the patient's chest x-ray performed yesterday appears good. He advises stopping the IV doxycycline and keeping the patient on doxycycline 100 mg by mouth twice a day for 5 days. He advises tapering the prednisone, changing it to 10 mg by mouth daily x 1 week and decreasing it to 5 mg daily x 2 weeks and then stop. He states the patient will need to remain on Voriconazole for 4 months total. He states patient will need a repeat CT in mid September. Dr. Pinedo states he will be out of town from this Thursday through August 26 but will be back in town on the and will re- evaluate the patient at that time if he is still in the hospital. Advises obtaining liver profile next week. COPD exacerbation: still with dyspnea on exertion -Patient failed walk test recommended oxygen which he was on prior. Continue O2 via NC. -Pulmonology following. Per pulmonology, continue Duonebs bid; O2 at 2L. -RT informed me the patient has not been wearing his oxygen for days. She states his O2 sat was 94% on room air. Walk test was performed and patient only desaturated to 90% on exertion. He does not require oxygen any further. Pulmonary nodules -Status post bronchoscopy; negative cytology. Repeat CT in 2 months, follow-up with pulmonology as an outpatient. SVT: due to sepsis; s/p Cardizem. -S/p cardiology consultation. -Continue Beta rosy Ischemic cardiomyopathy -S/p stent placement 2001, follow-up angiogram no intervention needed per patient. -Elevated troponin likely due to presenting tachycardia/sepsis. -Echo with EF 35% cautious use of BB hx of COPD -Cardiology reconsulted on 06/05, nonsustained VT felt to be secondary to NAN . Information from Dr Vora shows ECHO May 2016 with normal EF and cath from 2014 (Apr per pt) with stable CAD. Elevated trop likely from sepsis -Continue on aspirin. Continue to monitor. -Continue Lisinopril -Refuses heart healthy diet Acute on chronic systolic CHF exacerbation -Continue Lasix and monitor electrolytes. -4/5: Patient complains of worsening left leg edema past 2 days; pitting in bilateral lower extremities on exam, worse on L. It is more likely edema is due to his CHF rather than a DVT. Patient is advised to elevate his legs. -/6: Lasix increased to 20 mg bid as he was on 40 mg before. K+ supplementation increased to 20 mEq daily. Hypokalemia: Resolved. K+ of 3.2-->3.8 s/p repletion. Attributed to Lasix use. Continue daily K+ supplementation. -Mg stable but slightly low at 1.7, likely from diuretic. Will start patient on po magnesium chloride 64 mg q12 and recheck Mg level in a few days. Hypernatremia: Improved. Hyperchloremia: Resolved. Hypertension: Worse, prednisone could be contributing to this as well. HR normal. -Continue lisinopril and metoprolol -Lasix was increased on 08/07. Consider increasing Lisinopril dose. Diabetes mellitus 2 with previous hypoglycemic episode -No further hypoglycemia. -Patient did not require insulin in over 5 days so Accu-Cheks and sliding so insulin was discontinued. -Patient was counseled on refusal of Accu-Cheks and insulin and risk of developing DKA. -Hemoglobin A1c 6.8 indicating well controlled diabetes as patient was on insulin previously. -Refuses diabetic diet. Anemia of chronic disease -S/p pRBC transfusion with improved H/H. Hemoglobin stable at 9.5. -Stool occult blood positive 1. GI performed endoscopy which showed gastritis and esophageal ring status post dilatations and biopsy. Ok with GI for aspirin. Refused colonoscopy. -Continue to monitor. Dry eyes: Continue with eye lubricants. C. difficile colitis: -Completed Flagyl 07/06/16. -Monitor electrolytes Minor epistaxis with nose blowing: Likely attributed to dry nares. Patient refuses humidified oxygen as he states it causes him to have too much phlegm. Hemoglobin and platelets stable. Continue nasal saline. Patient advised not to pick at the nose. L shoulder pain: chronic; likely rotator cuff injury. I spoke with PT to work with patient. Patient states he saw orthopedics in the past for this and x-rays were performed. No new injury. No x-rays needed. I explained to the patient that he likely has a rotator cuff injury and new x-rays are not going to be helpful. He is advised that he will likely need an outpatient MRI with orthopedics. Chest x-ray from 07/02 shows a previous fracture of the left proximal humerus. Patient likely has chronic pain from this. I will not be ordering new x-rays as there is no new injury reported. Medication non-compliance: Patient refused several medications due to nausea related to taking so many at one time. I switched his aspirin and lisinopril to nighttime. I discontinued the potassium phosphate which he has been on for one month and is not necessary at this time. Hopefully patient's compliance will improve now. DVT prophylaxis, SCD's and subcutaneous heparin. Patient has been refusing heparin, but did receive it this morning. Discharge Planning PT recommends home with outpatient PT/pulmonary rehab. Patient passes walk test today and no longer requires oxygen. 08/08/16: I spoke with business case analyst, Eloisa in regards to discharge planning. Patient states he wants to drive up to [place] to stay with a friend, and that friend is then going to be moving to [place]. Patient has [employer] insurance. Will need to figure out if patient can afford to obtain all his prescriptions including voriconazole. He'll need to follow up with a primary care physician especially to monitor his LFTs in regards to Voriconazole use as well as BMP in regards to his increased diuretic use. He has to get a repeat CT in mid September which can be done outpatient. CM to follow. Zoë Graham Aug 08, 2016 10:43
[2016-08-08 20:00] VITALS: BP 161/82; PULSE 89; RESP 24; TEMP 96.4; O2SAT 95
[2016-08-08] MEDS: ASPIRIN 81 MG CHEW TAB CHEW SCH (21:32)
[2016-08-08] MEDS: LISINOPRIL 20 MG TAB PO SCH (21:32)
[2016-08-08] MEDS: MAGNESIUM CHLORIDE 64 MG TAB PO SCH (21:33)
[2016-08-09 08:00] VITALS: BP 162/86; PULSE 74; RESP 20; TEMP 97.2; O2SAT 99
[2016-08-09] MEDS: VORICONAZOLE 200 MG TAB PO SCH ×2 (08:46→21:58)
[2016-08-09] MEDS: predniSONE 10 MG TAB PO SCH (08:46)
[2016-08-09] MEDS: BUDESONIDE-FORMOTEROL 160/4.5 MCG INHALER INH SCH ×2 (08:46→21:56)
[2016-08-09] MEDS: DOXYCYCLINE HYCLATE 100 MG CAP PO SCH ×2 (08:46→21:58)
[2016-08-09] MEDS: LACTOBACILLUS ACIDOPHILUS TAB PO SCH ×3 (08:46→17:20)
[2016-08-09] MEDS: PANTOPRAZOLE SOD 20 MG DELAYED RELEASE TAB PO SCH (08:47)
[2016-08-09] MEDS: FUROSEMIDE 20 MG TAB PO SCH ×2 (08:47→21:57)
[2016-08-09] MEDS: POTASSIUM CHLORIDE 10 MEQ CONTROLLED RELEASE TAB PO SCH (08:47)
[2016-08-09] MEDS: ACETAMINOPHEN/HYDROcodone 325 MG/5 MG TAB PO PRN ×2 (08:47→22:10)
[2016-08-09] MEDS: METOPROLOL TARTRATE 50 MG TAB PO SCH ×2 (08:52→21:57)
[2016-08-09] MEDS: LISINOPRIL 20 MG TAB PO SCH ×2 (08:52→21:58)
[2016-08-09] MEDS: MAGNESIUM CHLORIDE 64 MG TAB PO SCH ×2 (09:00→21:58)
[2016-08-09] MEDS: HEPARIN SODIUM - SQ 10,000 UNITS/ML VIAL SQ SCH ×2 (09:00→21:00)
--- NOTE | 2016-08-09 12:23 | HHI.PR ---
Subjective Remarks Follow-up for Aspergillus pneumonia, leg swelling. RT informed me yesterday that the patient passed his walk test and no longer requires oxygen. The patient states he wore oxygen last night and states she has been wearing oxygen at night for the past 10 years. He feels his left leg swelling is improving. Objective Vitals Vital Signs Date Time Temp Pulse Resp B/P Pulse Ox O2 Delivery O2 Flow Rate FiO2 08/09/16 08:00 99 08/09/16 08:00 97.2 74 20 162/86 99 08/08/16 20:30 21 08/08/16 20:00 96.4 89 24 161/82 95 08/08/16 20:00 95 Room Air I/O 08/08/16 08/08/16 08/08/16 08/09/16 08/09/16 08/09/16 07:00 15:00 23:00 07:00 15:00 23:00 Intake Total 480 ml 480 ml 480 ml 240 ml 100 ml Balance 480 ml 480 ml 480 ml 240 ml 100 ml Intake Oral 480 ml 480 ml 480 ml 240 ml 100 ml # Voids 2 2 3 2 # Bowel Movements 0 0 0 Result Diagram: 08/08/16 0705 Objective Remarks GENERAL: Elderly well-nourished, well-developed patient in no apparent distress. CARDIOVASCULAR: Regular rate and rhythm. RESPIRATORY: No accessory muscle use. CTAB. No O2 in place. MUSCULOSKELETAL: Pitting edema bilateral lower legs and feet, worse on the left 2+. The patient has no tenderness to palpation over B/L calves, popliteal regions, or posterior thighs. NEUROLOGICAL: Awake and alert. PSYCHIATRIC: Normal mood and affect. Procedures Incision and drainage of right hand abscess Bronchoscopy EGD with dilatation Urinary Catheter: No Vascular Central Line Catheter: No A/P Problem List: (1) SVT (supraventricular tachycardia) ICD Code: I47.1 Status: Resolved (2) Severe sepsis ICD Code: A41.9 Status: Resolved (3) COPD with acute exacerbation ICD Code: J44.1 Status: Acute (4) Sepsis ICD Code: A41.9 Status: Resolved (5) Cellulitis of right upper extremity ICD Code: L03.113 Status: Resolved (6) Abscess of hand, right ICD Code: L02.511 Status: Resolved (7) Olecranon bursitis, right elbow ICD Code: M70.21 Status: Resolved (8) Dizziness ICD Code: R42 Status: Acute (9) Hypokalemia ICD Code: E87.6 Status: Resolved Assessment and Plan Severe sepsis due to cellulitis of the right upper extremity/right olecranon bursitis now resolved. -Previous venous Doppler of the upper extremities with no DVT -US of the right upper extremity with a complex mass overlying the right third finger. S/p I/D of the right hand MRSA abscess and treatment with Vancomycin. -Evaluated by ortho and hand surgery; cleared by hand surgery. Community acquired pneumonia: -Status post treatment with Zosyn and Levaquin. -Bronchial washings culture with Aspergillus niger, on Voriconazole since 06/27- treatment per ID; patient has been on Voriconazole for ~1 month. -Call ID if acute issues develop. ID discussed with Dr. Pinedo about need for outpt ID follow up. -07/14: LFTs reviewed and normal. Monitor periodically due to Variconazole use. -07/26: CT performed with resolution of L sided effusion; radiologist indicates progressive worsening of acute infection consistent with aspergillosis. ID COUNTY ATTORNEY evaluated patient and he was started on IV Doxycycline and Zosyn in additon to continuing Voriconazole. -07/27: I spoke with Dr. Pinedo at length who has spoken with a different radiologist in regards to CT and agree that infection is not worse. He advises continuing Voriconazole and repeat chest CT in 6 weeks. He also placed patient on Prednisone. -07/28: I spoke with Dr. Felder who agrees patient is not clinically worse but preliminary sputum culture has grown gram positive cocci in pairs and clusters so she has kept patient on Doxycycline and discontinued Zosyn. ID following. -Final sputum culture with heavy growth normal respiratory enio; will defer to ID. -Chest x-ray 08/05 with COPD changes. -08/06: Dr. Pinedo called and informed me that the patient's chest x-ray performed yesterday appears good. He advises stopping the IV doxycycline and keeping the patient on doxycycline 100 mg by mouth twice a day for 5 days. He advises tapering the prednisone, changing it to 10 mg by mouth daily x 1 week and decreasing it to 5 mg daily x 2 weeks and then stop. He states the patient will need to remain on Voriconazole for 4 months total. He states patient will need a repeat CT in mid September. Dr. Pinedo states he will be out of town from this Thursday through August 26 but will be back in town on the and will re- evaluate the patient at that time if he is still in the hospital. Advises obtaining liver profile next week. COPD exacerbation: still with dyspnea on exertion -Patient failed walk test recommended oxygen which he was on prior. Continue O2 via NC. -Pulmonology following. Per pulmonology, continue Duonebs bid; O2 at 2L. -08/08: RT informed me the patient has not been wearing his oxygen for days. She states his O2 sat was 94% on room air. Walk test was performed and patient only desaturated to 90% on exertion. He does not require oxygen any further. Pulmonary nodules -Status post bronchoscopy; negative cytology. Repeat CT in 2 months, follow-up with pulmonology as an outpatient. SVT: due to sepsis; s/p Cardizem. -S/p cardiology consultation. -Continue Beta rosy Ischemic cardiomyopathy -S/p stent placement 2001, follow-up angiogram no intervention needed per patient. -Elevated troponin likely due to presenting tachycardia/sepsis. -Echo with EF 35% cautious use of BB hx of COPD -Cardiology reconsulted on 06/05, nonsustained VT felt to be secondary to NAN . Information from Dr Vora shows ECHO May 2016 with normal EF and cath from 2014 (Apr per pt) with stable CAD. Elevated trop likely from sepsis -Continue on aspirin. Continue to monitor. -Continue Lisinopril -Refuses heart healthy diet Acute on chronic systolic CHF exacerbation -Continue Lasix and monitor electrolytes. -Pitting edema in B/L lower extremities. Lasix was increased to 20 mg bid as he was on 40 mg before. K+ supplementation increased to 20 mEq daily. -Monitor lower extremity edema. Hypokalemia: Resolved. K+ of 3.2-->3.8 s/p repletion. Attributed to Lasix use. Continue daily K+ supplementation. -08/08: Mg stable but slightly low at 1.7, likely from diuretic. Will start patient on po magnesium chloride 64 mg q12 and recheck Mg level on 08/11. Hypernatremia: Improved. Hyperchloremia: Resolved. Hypertension: Worse, prednisone could be contributing to this as well. HR normal. -Continue lisinopril and metoprolol -Lasix was increased on 08/07. -08/09: BP remains elevated. Increase Lisinopril to 20 mg bid. Diabetes mellitus 2 with previous hypoglycemic episode -No further hypoglycemia. -Patient did not require insulin in over 5 days so Accu-Cheks and sliding so insulin was discontinued. -Patient was counseled on refusal of Accu-Cheks and insulin and risk of developing DKA. -Hemoglobin A1c 6.8 indicating well controlled diabetes as patient was on insulin previously. -Refuses diabetic diet. Anemia of chronic disease -S/p pRBC transfusion with improved H/H. Hemoglobin stable at 9.5. -Stool occult blood positive 1. GI performed endoscopy which showed gastritis and esophageal ring status post dilatations and biopsy. Ok with GI for aspirin. Refused colonoscopy. -Continue to monitor. Dry eyes: Continue with eye lubricants. C. difficile colitis: -Completed Flagyl 07/06/16. -Monitor electrolytes Minor epistaxis with nose blowing: Likely attributed to dry nares. Patient refuses humidified oxygen as he states it causes him to have too much phlegm. Hemoglobin and platelets stable. Continue nasal saline. Patient advised not to pick at the nose. L shoulder pain: chronic; likely rotator cuff injury. I spoke with PT to work with patient. Patient states he saw orthopedics in the past for this and x-rays were performed. No new injury. No x-rays needed. I explained to the patient that he likely has a rotator cuff injury and new x-rays are not going to be helpful. He is advised that he will likely need an outpatient MRI with orthopedics. Chest x-ray from 07/02 shows a previous fracture of the left proximal humerus. Patient likely has chronic pain from this. I will not be ordering new x-rays as there is no new injury reported. Medication non-compliance: Patient refused several medications due to nausea related to taking so many at one time. I switched his aspirin and lisinopril to nighttime. I discontinued the potassium phosphate which he has been on for one month and is not necessary at this time. Hopefully patient's compliance will improve now. DVT prophylaxis, SCD's and subcutaneous heparin. Patient has been refusing heparin, but did receive it this morning. Discharge Planning PT recommends home with outpatient PT/pulmonary rehab. 08/08/16: Patient passed walk test today and no longer requires oxygen. I spoke with shelter case manager, Eloisa in regards to discharge planning. Patient states he wants to drive up to [place] to stay with a friend, and that friend is then going to be moving to [place]. Patient has [employer] insurance. Will need to figure out if patient can afford to obtain all his prescriptions including voriconazole. He'll need to follow up with a primary care physician especially to monitor his LFTs in regards to Voriconazole use as well as BMP in regards to his increased diuretic use. He has to get a repeat CT in mid September which can be done outpatient. CM to follow. 08/09/16: Patient states he has a van in storage that needs repairs but states he has the money to do so in order to drive up to [place]. States he would need a motel to stay in temporarily. He additionally has oxygen to use at night although he technically does not need it per walk test yesterday. He desires a portable concentrator but I told him it is not medically necessary. CM will need to speak with patient and make arrangements. Zoë Graham Aug 09, 2016 12:23
[2016-08-09] MEDS: SIMETHICONE 80 MG CHEWABLE TAB CHEW PRN (12:53)
[2016-08-09 13:18] VITALS: O2SAT 92
[2016-08-09 20:00] VITALS: BP 137/73; PULSE 75; RESP 21; TEMP 97.5; O2SAT 96
[2016-08-09] MEDS: ASPIRIN 81 MG CHEW TAB CHEW SCH (21:56)
[2016-08-09] MEDS: ZOLPIDEM TARTRATE 5 MG TAB PO PRN (21:58)
[2016-08-10 08:00] VITALS: BP 138/81; PULSE 77; RESP 17; TEMP 97.1; O2SAT 93
[2016-08-10] MEDS: FUROSEMIDE 20 MG TAB PO SCH ×2 (08:26→21:38)
[2016-08-10] MEDS: DOXYCYCLINE HYCLATE 100 MG CAP PO SCH ×2 (08:26→21:38)
[2016-08-10] MEDS: LISINOPRIL 20 MG TAB PO SCH ×2 (08:26→21:38)
[2016-08-10] MEDS: PANTOPRAZOLE SOD 20 MG DELAYED RELEASE TAB PO SCH (08:26)
[2016-08-10] MEDS: BUDESONIDE-FORMOTEROL 160/4.5 MCG INHALER INH SCH ×2 (08:26→21:00)
[2016-08-10] MEDS: VORICONAZOLE 200 MG TAB PO SCH ×2 (08:26→21:39)
[2016-08-10] MEDS: predniSONE 10 MG TAB PO SCH (08:26)
[2016-08-10] MEDS: METOPROLOL TARTRATE 50 MG TAB PO SCH ×2 (08:26→21:38)
[2016-08-10] MEDS: LACTOBACILLUS ACIDOPHILUS TAB PO SCH ×3 (08:26→16:46)
[2016-08-10] MEDS: ACETAMINOPHEN/HYDROcodone 325 MG/5 MG TAB PO PRN ×2 (08:27→21:46)
[2016-08-10] MEDS: POTASSIUM CHLORIDE 10 MEQ CONTROLLED RELEASE TAB PO SCH (08:27)
[2016-08-10] MEDS: HEPARIN SODIUM - SQ 10,000 UNITS/ML VIAL SQ SCH ×3 (08:27→21:38)
[2016-08-10] MEDS: MAGNESIUM CHLORIDE 64 MG TAB PO SCH ×2 (09:51→21:39)
--- NOTE | 2016-08-10 10:04 | HHI.PR ---
Subjective Remarks Follow-up for Aspergillus pneumonia, lower extremity edema. The patient tells me today that his neck hurts. Patient slept without O2. Denies feeling SOB. Objective Vitals Vital Signs Date Time Temp Pulse Resp B/P Pulse Ox O2 Delivery O2 Flow Rate FiO2 08/10/16 08:00 97.1 77 17 138/81 93 08/09/16 21:22 21 08/09/16 20:00 99 Room Air 08/09/16 20:00 97.5 75 21 137/73 96 08/09/16 13:18 92 21 I/O 08/09/16 08/09/16 08/09/16 08/10/16 08/10/16 08/10/16 07:00 15:00 23:00 07:00 15:00 23:00 Intake Total 240 ml 100 ml 460 ml 240 ml Balance 240 ml 100 ml 460 ml 240 ml Intake Oral 240 ml 100 ml 460 ml 240 ml # Voids 2 2 2 # Bowel Movements 0 Result Diagram: 08/08/16 0705 Objective Remarks GENERAL: Elderly well-nourished, well-developed patient in no apparent distress. NECK: Tender over right paracervical muscles, but patient has good lateral range of motion and no pain over the cervical spine. CARDIOVASCULAR: Regular rate and rhythm. RESPIRATORY: Diminished breath sounds over L. CTAB. No O2 in place. MUSCULOSKELETAL: Pitting edema bilateral lower legs and feet, worse on the left. The patient has no tenderness to palpation over B/L calves, popliteal regions, or posterior thighs. NEUROLOGICAL: Awake and alert. PSYCHIATRIC: Normal mood and affect. Procedures Incision and drainage of right hand abscess Bronchoscopy EGD with dilatation Urinary Catheter: No Vascular Central Line Catheter: No A/P Problem List: (1) SVT (supraventricular tachycardia) ICD Code: I47.1 Status: Resolved (2) Severe sepsis ICD Code: A41.9 Status: Resolved (3) COPD with acute exacerbation ICD Code: J44.1 Status: Acute (4) Sepsis ICD Code: A41.9 Status: Resolved (5) Cellulitis of right upper extremity ICD Code: L03.113 Status: Resolved (6) Abscess of hand, right ICD Code: L02.511 Status: Resolved (7) Olecranon bursitis, right elbow ICD Code: M70.21 Status: Resolved (8) Dizziness ICD Code: R42 Status: Acute (9) Hypokalemia ICD Code: E87.6 Status: Resolved Assessment and Plan Severe sepsis due to cellulitis of the right upper extremity/right olecranon bursitis now resolved. -Previous venous Doppler of the upper extremities with no DVT -US of the right upper extremity with a complex mass overlying the right third finger. S/p I/D of the right hand MRSA abscess and treatment with Vancomycin. -Evaluated by ortho and hand surgery; cleared by hand surgery. Community acquired pneumonia: -Status post treatment with Zosyn and Levaquin. -Bronchial washings culture with Aspergillus niger, on Voriconazole since 06/27- treatment per ID; patient has been on Voriconazole for ~1 month. -Call ID if acute issues develop. ID discussed with Dr. Pinedo about need for outpt ID follow up. -07/14: LFTs reviewed and normal. Monitor periodically due to Variconazole use. -07/26: CT performed with resolution of L sided effusion; radiologist indicates progressive worsening of acute infection consistent with aspergillosis. ID LOGISTICS INTERN evaluated patient and he was started on IV Doxycycline and Zosyn in additon to continuing Voriconazole. -07/27: I spoke with Dr. Pinedo at length who has spoken with a different radiologist in regards to CT and agree that infection is not worse. He advises continuing Voriconazole and repeat chest CT in 6 weeks. He also placed patient on Prednisone. -07/28: I spoke with Dr. Felder who agrees patient is not clinically worse but preliminary sputum culture has grown gram positive cocci in pairs and clusters so she has kept patient on Doxycycline and discontinued Zosyn. ID following. -Final sputum culture with heavy growth normal respiratory enio; will defer to ID. -Chest x-ray 08/05 with COPD changes. -08/06: Dr. Pinedo called and informed me that the patient's chest x-ray performed yesterday appears good. He advises stopping the IV doxycycline and keeping the patient on doxycycline 100 mg by mouth twice a day for 5 days. He advises tapering the prednisone, changing it to 10 mg by mouth daily x 1 week and decreasing it to 5 mg daily x 2 weeks and then stop (this has been ordered) . He states the patient will need to remain on Voriconazole for 4 months total. He states patient will need a repeat CT in mid September. Dr. Pinedo states he will be out of town from this Thursday through August 26 but will be back in town on the and will re-evaluate the patient at that time if he is still in the hospital. Advises obtaining liver profile next week (CMP ordered for 08/11 ). COPD exacerbation: still with dyspnea on exertion -Patient failed walk test recommended oxygen which he was on prior. Continue O2 via NC. -Pulmonology following. Per pulmonology, continue Duonebs bid; O2 at 2L. -08/08: RT informed me the patient has not been wearing his oxygen for days. She states his O2 sat was 94% on room air. Walk test was performed and patient only desaturated to 90% on exertion. He does not require oxygen any further. Pulmonary nodules -Status post bronchoscopy; negative cytology. Repeat CT in 2 months, follow-up with pulmonology as an outpatient. SVT: due to sepsis; s/p Cardizem. -S/p cardiology consultation. -Continue Beta rosy Ischemic cardiomyopathy -S/p stent placement 2001, follow-up angiogram no intervention needed per patient. -Elevated troponin likely due to presenting tachycardia/sepsis. -Echo with EF 35% cautious use of BB hx of COPD -Cardiology reconsulted on 06/05, nonsustained VT felt to be secondary to NAN . Information from Dr Vora shows ECHO May 2016 with normal EF and cath from 2014 (Apr per pt) with stable CAD. Elevated trop likely from sepsis -Continue on aspirin. Continue to monitor. -Continue Lisinopril -Refuses heart healthy diet Acute on chronic systolic CHF exacerbation -Continue Lasix and monitor electrolytes. -Pitting edema in B/L lower extremities. Lasix was increased to 20 mg bid as he was on 40 mg before. K+ supplementation increased to 20 mEq daily. Patient advised to elevate his legs. -08/10: Edema has not improved in LLE. Although likely attributed to CHF, will obtain Doppler US as patient is at risk of DVT and has been refusing his heparin. Doppler negative. Hypokalemia: Resolved. K+ of 3.2-->3.8 s/p repletion. Attributed to Lasix use. Continue daily K+ supplementation. -08/08: Mg stable but slightly low at 1.7, likely from diuretic. Will start patient on po magnesium chloride 64 mg q12 and recheck Mg level on 08/11. Hypernatremia: Improved. Hyperchloremia: Resolved. Hypertension: Worse, prednisone could be contributing to this as well. HR normal. -Continue lisinopril and metoprolol -Lasix was increased on 08/07. -Lisinopril increased to 20 mg bid on 08/09/16. -08/10: BP improved after increasing Lisinopril. Continue on current regimen. Diabetes mellitus 2 with previous hypoglycemic episode -No further hypoglycemia. -Patient did not require insulin in over 5 days so Accu-Cheks and sliding so insulin was discontinued. -Patient was counseled on refusal of Accu-Cheks and insulin and risk of developing DKA. -Hemoglobin A1c 6.8 indicating well controlled diabetes as patient was on insulin previously. -Refuses diabetic diet. Anemia of chronic disease -S/p pRBC transfusion with improved H/H. Hemoglobin stable at 9.5. -Stool occult blood positive 1. GI performed endoscopy which showed gastritis and esophageal ring status post dilatations and biopsy. Ok with GI for aspirin. Refused colonoscopy. -Continue to monitor. Dry eyes: Continue with eye lubricants. C. difficile colitis: -Completed Flagyl 07/06/16. -Monitor electrolytes Muscular neck pain: Apply heat. Minor epistaxis with nose blowing: Likely attributed to dry nares. Patient refuses humidified oxygen as he states it causes him to have too much phlegm. Hemoglobin and platelets stable. Continue nasal saline. Patient advised not to pick at the nose. L shoulder pain: chronic; likely rotator cuff injury. I spoke with PT to work with patient. Patient states he saw orthopedics in the past for this and x-rays were performed. No new injury. No x-rays needed. I explained to the patient that he likely has a rotator cuff injury and new x-rays are not going to be helpful. He is advised that he will likely need an outpatient MRI with orthopedics. Chest x-ray from 07/02 shows a previous fracture of the left proximal humerus. Patient likely has chronic pain from this. I will not be ordering new x-rays as there is no new injury reported. Medication non-compliance: Patient refused several medications due to nausea related to taking so many at one time. I switched his aspirin and lisinopril to nighttime. I discontinued the potassium phosphate which he has been on for one month and is not necessary at this time. Hopefully patient's compliance will improve now. DVT prophylaxis, SCD's and subcutaneous heparin. Patient has been refusing heparin. Discharge Planning PT recommends home with outpatient PT/pulmonary rehab. 08/08/16: Patient passed walk test today and no longer requires oxygen. I spoke with mental health case manager, Eloisa in regards to discharge planning. Patient states he wants to drive up to [place] to stay with a friend, and that friend is then going to be moving to [place]. Patient has [employer] insurance. Will need to figure out if patient can afford to obtain all his prescriptions including voriconazole. He'll need to follow up with a primary care physician especially to monitor his LFTs in regards to Voriconazole use as well as BMP in regards to his increased diuretic use. He has to get a repeat CT in mid September which can be done outpatient. CM to follow. 08/09/16: Patient states he has a van in storage that needs repairs but states he has the money to do so in order to drive up to [place]. States he would need a motel to stay in temporarily. He additionally has oxygen to use at night although he technically does not need it per walk test yesterday. He desires a portable concentrator but I told him it is not medically necessary. CM will need to speak with patient and make arrangements. Doppler US pending LLE. Zoë Graham Aug 10, 2016 10:03
[2016-08-10] MEDS: RESP: ALBUTEROL 0.63 MG/3 ML NEB (PRN) NEB (11:02)
[2016-08-10 11:05] VITALS: O2SAT 93
--- NOTE | 2016-08-10 17:59 | RADHPO ---
EXAM DATE/TIME: 08/10/2016 16:21 [facility] COMPARISON: No previous studies available for comparison. INDICATIONS : Left lower extremity edema. MEDICAL HISTORY : Hypertension. Myocardial infarction. Chronic obstructive pulmonary disease. Abdominal aortic aneur ysm. Chronic kidney disease. Bladder cancer. Arthritis. Clostridium difficile, 06/21/16. MRSA: hand, . Peripheral vascular disease. GERD. SURGICAL HISTORY : Coronary stent. ENCOUNTER: Initial ACUITY: 1 day PAIN SCORE: 2/10 LOCATION: Left leg. TECHNIQUE: Venous ultrasound of the leg was performed from the inguinal ligament to the proximal calf. Real-jenn e, color Doppler and spectral tracing, compression and augmentation techniques were used. FINDINGS: There is normal compressibility of the deep venous system from the inguinal region to the proximal ca lf. No echogenic clot is seen in the lumen of the common femoral, femoral, popliteal, and posterior tibial veins. There is a normal response of the venous system to proximal and distal augmentation an d respiration. CONCLUSION: 1. Negative for deep venous thrombosis. Subcutaneous edema present. Stalin Alexis MD on August 10, 2016 at 17:56 Board Certified Radiologist. This report was verified electronically.
[2016-08-10 20:00] VITALS: BP 157/81; PULSE 77; RESP 20; TEMP 98.2; O2SAT 95
[2016-08-10] MEDS: ASPIRIN 81 MG CHEW TAB CHEW SCH (21:39)
[2016-08-10] MEDS: ZOLPIDEM TARTRATE 5 MG TAB PO PRN (21:46)
[2016-08-10 21:48] VITALS: O2SAT 93
[2016-08-11 05:09] LABS: CHLORIDE 106 MEQ/L (98-107); SODIUM (NA) 144 MEQ/L (136-145)
[2016-08-11 05:14] LABS: ANION GAP 10 MEQ/L (5-15); BICARBONATE 28.1 MEQ/L (21.0-32.0); BLOOD UREA NITROGEN 28 MG/DL (7-18); MAGNESIUM 1.9 MG/DL (1.5-2.5)
[2016-08-11 05:17] LABS: ALT (GPT) 24 U/L (12-78); AST (GOT) 21 U/L (15-37); GLOMERULAR FILTRATION RATE 91 ML/MIN (>89)
[2016-08-11 05:19] LABS: ALKALINE PHOSPHATASE 54 U/L (45-117); TOTAL BILIRUBIN ADULT 0.3 MG/DL (0.2-1.0)
[2016-08-11 07:30] VITALS: O2SAT 93
[2016-08-11 08:00] VITALS: BP 125/85; PULSE 88; RESP 17; TEMP 98.2; O2SAT 93
[2016-08-11] MEDS: LISINOPRIL 20 MG TAB PO SCH ×2 (08:50→22:00)
[2016-08-11] MEDS: LACTOBACILLUS ACIDOPHILUS TAB PO SCH ×3 (08:50→17:10)
[2016-08-11] MEDS: predniSONE 10 MG TAB PO SCH (08:50)
[2016-08-11] MEDS: METOPROLOL TARTRATE 50 MG TAB PO SCH ×2 (08:51→22:00)
[2016-08-11] MEDS: POTASSIUM CHLORIDE 10 MEQ CONTROLLED RELEASE TAB PO SCH (08:51)
[2016-08-11] MEDS: VORICONAZOLE 200 MG TAB PO SCH ×2 (08:51→22:00)
[2016-08-11] MEDS: PANTOPRAZOLE SOD 20 MG DELAYED RELEASE TAB PO SCH (08:51)
[2016-08-11] MEDS: FUROSEMIDE 20 MG TAB PO SCH ×2 (08:51→22:00)
[2016-08-11] MEDS: HEPARIN SODIUM - SQ 10,000 UNITS/ML VIAL SQ SCH ×2 (09:00→21:00)
[2016-08-11] MEDS: BUDESONIDE-FORMOTEROL 160/4.5 MCG INHALER INH SCH ×2 (09:00→22:01)
[2016-08-11] MEDS: DOXYCYCLINE HYCLATE 100 MG CAP PO SCH ×2 (09:00→22:00)
[2016-08-11] MEDS: MAGNESIUM CHLORIDE 64 MG TAB PO SCH ×2 (09:01→22:01)
[2016-08-11] MEDS: ACETAMINOPHEN/HYDROcodone 325 MG/5 MG TAB PO PRN ×2 (09:01→17:10)
--- NOTE | 2016-08-11 16:38 | HHI.PR ---
Subjective Remarks Patient seen and examined today. Records indicate that Zoë Graham spoke with Dr. Ratliff who recommended continuing the patient on doxycycline 100 mg twice a day for 5 days, tapering prednisone, and the patient will need to remain on Voriconazole for 4 months total. Household Coordinator indicated that he is at [place] back to see the patient on August 27 if patient is still in the hospital. No recent evaluation by infectious disease has been performed for clearance at this time. Patient states that he is had swelling in his feet for the last couple days. Ultrasound was done of the left lower extremity which did not indicate any DVT. Objective Vitals Vital Signs Date Time Temp Pulse Resp B/P Pulse Ox O2 Delivery O2 Flow Rate FiO2 08/11/16 10:21 93 08/11/16 08:00 98.2 88 17 125/85 93 08/11/16 07:30 93 21 08/10/16 21:48 93 21 08/10/16 20:30 99 Room Air 08/10/16 20:00 98.2 77 20 157/81 95 I/O 08/10/16 08/10/16 08/10/16 08/11/16 08/11/16 08/11/16 07:00 15:00 23:00 07:00 15:00 23:00 Intake Total 240 ml 480 ml 480 ml Balance 240 ml 480 ml 480 ml Intake Oral 240 ml 480 ml 480 ml # Voids 2 2 2 2 4 Result Diagram: 08/11/16 0437 Objective Remarks GENERAL: Well-developed, well-nourished, in no acute distress. alert and orientated HEENT: Head is normocephalic without any lesions or masses noted. Facial features are symmetric. Eyes: Extraocular muscles are intact. Conjunctivae were clear. NECK: Supple without any masses. Trachea midline no deviation. CARDIAC: Regular rhythm, regular rate. S1/S2 are heard. No murmurs gallops or rubs. LUNGS: Clear to auscultation bilaterally. No wheeze, rhonchi or rales. No use of accessory muscles on inspiration or expiration. ABDOMEN: Soft, nontender. Nondistended. Bowel sounds heard in all 4 quadrants. No organomegaly or masses. Negative rebound, negative guarding EXTREMITIES: 2+ pitting edema noted to the bilateral feet, no pretibial edema, pulses are equal bilaterally. No cyanosis or clubbing NEUROLOGY: Mood and affect appear appropriate. Cranial nerves II through XII grossly intact. 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 -Bronchial washings culture with Aspergillus niger, on Voriconazole since 06/27 as indicated by fitness sales associate and the patient would have to remain on medication for at least 4 months -Infectious disease started patient on doxycycline after repeat CT scan was done. Cultures did not grow any infectious etiology. Household Coordinator recommend discontinuing IV doxycycline and continued by mouth doxycycline for 5 days -As indicated in previous note that fitness sales associate indicate continuation of Voriconazole for 4 months, doxycycline for 5 days and weaning of prednisone and he will see patient in the hospital if he still remains hospitalized on August -We'll consult infectious disease for further recommendations and discharge planning -CT of the chest shows improvement of the pleural effusion, however progressive worsening of acute infection consistent with the history of aspergillosis. This result was discussed with fitness sales associate as well as infectious disease who does not feel that the patient is any worse. He is actually clinically improved. Household Coordinator requesting repeat CT in 6 weeks Severe sepsis due to cellulitis of the right upper extremity/right olecranon bursitis now resolved. -Previous venous Doppler of the upper extremities with no DVT -US of the right upper extremity with a complex mass overlying the right third finger. S/p I/D of the right hand MRSA abscess and treatment with Vancomycin. -Evaluated by ortho and hand surgery; cleared by hand surgery. Hypernatremia Encourage by mouth intake Continue monitor sodium level COPD exacerbation: Resolved -Patient failed walk test recommended oxygen which he was on prior. -Pulmonology following. Continue O2, nebulizer as needed Pulmonary nodules -Status post bronchoscopy; negative cytology. Repeat CT in 2 months, follow-up with pulmonology as an outpatient. SVT: due to sepsis; s/p Cardizem. -S/p cardiology consultation. -Continue Beta rosy Ischemic cardiomyopathy -S/p stent placement 2001, follow-up angiogram no intervention needed per patient. -Elevated troponin likely due to presenting tachycardia/sepsis. -Echo with EF 35% cautious use of BB hx of COPD -Cardiology reconsulted on 06/05, nonsustained VT felt to be secondary to NAN . Information from Dr Vora shows ECHO May 2016 with normal EF and cath from 2014 (Apr per pt) with stable CAD. Elevated trop likely from sepsis -Continue on aspirin. Continue to monitor. -Continue Lisinopril -Refuses heart healthy diet Acute on chronic systolic CHF exacerbation, resolved -Continue Lasix and monitor electrolytes. Bilateral feet edema, -ultrasound does not indicate any DVT in the left lower extremity -Protein level is low, could be secondary to protein malnutrition, start protein supplement -We'll place ONEL cisneros Hypertension: Controlled. -Continue lisinopril and metoprolol Diabetes mellitus 2 with previous hypoglycemic episode -No further hypoglycemia. Blood glucose readings [id number] -Patient did not require insulin in over 5 days. Accu-Cheks and sliding so insulin was discontinued -Patient was counseled on refusal of Accu-Cheks and insulin. I have risk of developing DKA. -Hemoglobin A1c 6.8 indicating well controlled diabetes as patient was on insulin previously. -Refuses diabetic diet. Anemia of chronic disease -S/p pRBC transfusion with improved H/H. Hemoglobin stable at 9.5. -Stool occult blood positive 1. GI performed endoscopy which showed gastritis and esophageal ring status post dilatations and biopsy. Ok with GI for aspirin. Refused colonoscopy. -Continue to monitor. C. difficile colitis: -Completed Flagyl 07/06/16. -Monitor electrolytes Chronic left shoulder pain -Discussed with patient by multiple practitioners that this is a chronic illness nothing acute at this time. Patient will need to follow up outpatient for further management. DVT prophylaxis, SCD's and subcutaneous heparin, patient refusing heparin intermittently Discharge Planning Case management for discharge planning. Latrell Mcnair Aug 11, 2016 16:38
[2016-08-11 19:50] VITALS: O2SAT 94
[2016-08-11 20:00] VITALS: BP 137/72; PULSE 80; RESP 20; TEMP 98; O2SAT 95
[2016-08-11] MEDS: ASPIRIN 81 MG CHEW TAB CHEW SCH (22:00)
[2016-08-11] MEDS: ZOLPIDEM TARTRATE 5 MG TAB PO PRN (22:18)
[2016-08-12 08:00] VITALS: BP 128/80; PULSE 71; RESP 18; TEMP 97.6; O2SAT 95
[2016-08-12] MEDS: MAGNESIUM CHLORIDE 64 MG TAB PO SCH ×2 (08:30→20:45)
[2016-08-12] MEDS: ACETAMINOPHEN/HYDROcodone 325 MG/5 MG TAB PO PRN ×2 (08:30→16:59)
[2016-08-12] MEDS: VORICONAZOLE 200 MG TAB PO SCH ×2 (08:30→20:45)
[2016-08-12] MEDS: POTASSIUM CHLORIDE 10 MEQ CONTROLLED RELEASE TAB PO SCH (08:30)
[2016-08-12] MEDS: PANTOPRAZOLE SOD 20 MG DELAYED RELEASE TAB PO SCH (08:30)
[2016-08-12] MEDS: LISINOPRIL 20 MG TAB PO SCH ×2 (08:30→20:45)
[2016-08-12] MEDS: LACTOBACILLUS ACIDOPHILUS TAB PO SCH ×3 (08:31→16:59)
[2016-08-12] MEDS: predniSONE 10 MG TAB PO SCH (08:31)
[2016-08-12] MEDS: HEPARIN SODIUM - SQ 10,000 UNITS/ML VIAL SQ SCH ×2 (08:31→20:46)
[2016-08-12] MEDS: FUROSEMIDE 20 MG TAB PO SCH ×2 (08:31→20:45)
[2016-08-12] MEDS: METOPROLOL TARTRATE 50 MG TAB PO SCH ×2 (08:31→20:45)
[2016-08-12] MEDS: BUDESONIDE-FORMOTEROL 160/4.5 MCG INHALER INH SCH ×2 (08:32→20:44)
--- NOTE | 2016-08-12 09:53 | HHI.PR ---
Subjective Remarks Patient seen and examined today. Patient denies any new complaints. Lower extremity edema improved with ONEL hose placement. Objective Vitals Vital Signs Date Time Temp Pulse Resp B/P Pulse Ox O2 Delivery O2 Flow Rate FiO2 08/12/16 09:50 18 08/12/16 08:00 97.6 71 18 128/80 95 08/11/16 20:00 98.0 80 20 137/72 95 08/11/16 19:50 94 21 08/11/16 10:21 93 I/O 08/11/16 08/11/16 08/11/16 08/12/16 08/12/16 08/12/16 07:00 15:00 23:00 07:00 15:00 23:00 Intake Total 480 ml 240 ml Output Total 300 ml Balance 480 ml -300 ml 240 ml Intake Oral 480 ml 240 ml Output Urine Total 300 ml # Voids 2 4 1 4 # Bowel Movements 0 Result Diagram: 08/11/16 0437 Objective Remarks GENERAL: Well-developed, well-nourished, in no acute distress. alert and orientated HEENT: Head is normocephalic without any lesions or masses noted. Facial features are symmetric. Eyes: Extraocular muscles are intact. Conjunctivae were clear. NECK: Supple without any masses. Trachea midline no deviation. CARDIAC: Regular rhythm, regular rate. S1/S2 are heard. No murmurs gallops or rubs. LUNGS: Clear to auscultation bilaterally. No wheeze, rhonchi or rales. No use of accessory muscles on inspiration or expiration. ABDOMEN: Soft, nontender. Nondistended. Bowel sounds heard in all 4 quadrants. No organomegaly or masses. Negative rebound, negative guarding EXTREMITIES: 1+ pitting edema noted to the bilateral feet, no pretibial edema, pulses are equal bilaterally. No cyanosis or clubbing NEUROLOGY: Mood and affect appear appropriate. Cranial nerves II through XII grossly intact. 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 -Bronchial washings culture with Aspergillus niger, on Voriconazole since 06/27 as indicated by geoscience technician and the patient would have to remain on medication for at least 4 months -Infectious disease started patient on doxycycline after repeat CT scan was done. Cultures did not grow any infectious etiology. Treasury Assistant recommend discontinuing IV doxycycline and continued by mouth doxycycline for 5 days -As indicated in previous note that geoscience technician indicate continuation of Voriconazole for 4 months, doxycycline for 5 days and weaning of prednisone and he will see patient in the hospital if he still remains hospitalized on August -CT of the chest shows improvement of the pleural effusion, however progressive worsening of acute infection consistent with the history of aspergillosis. This result was discussed with geoscience technician as well as infectious disease who does not feel that the patient is any worse. He is actually clinically improved. Treasury Assistant requesting repeat CT in 6 weeks -We'll consult infectious disease for further recommendations and discharge planning Severe sepsis due to cellulitis of the right upper extremity/right olecranon bursitis now resolved. -Previous venous Doppler of the upper extremities with no DVT -US of the right upper extremity with a complex mass overlying the right third finger. S/p I/D of the right hand MRSA abscess and treatment with Vancomycin. -Evaluated by ortho and hand surgery; cleared by hand surgery. Hypernatremia, resolved Encourage by mouth intake Continue monitor sodium level COPD exacerbation: Resolved -Patient failed walk test recommended oxygen which he was on prior. -Pulmonology following. Continue O2, nebulizer as needed Pulmonary nodules -Status post bronchoscopy; negative cytology. Repeat CT in 2 months, follow-up with pulmonology as an outpatient. SVT: due to sepsis; s/p Cardizem. -S/p cardiology consultation. -Continue Beta rosy Ischemic cardiomyopathy -S/p stent placement 2001, follow-up angiogram no intervention needed per patient. -Elevated troponin likely due to presenting tachycardia/sepsis. -Echo with EF 35% cautious use of BB hx of COPD -Cardiology reconsulted on 06/05, nonsustained VT felt to be secondary to NAN . Information from Dr Vora shows ECHO May 2016 with normal EF and cath from 2014 (Apr per pt) with stable CAD. Elevated trop likely from sepsis -Continue on aspirin. Continue to monitor. -Continue Lisinopril -Refuses heart healthy diet Acute on chronic systolic CHF exacerbation, resolved -Continue Lasix and monitor electrolytes. Bilateral feet edema, -ultrasound does not indicate any DVT in the left lower extremity -Protein level is low, could be secondary to protein malnutrition, continue protein supplement -Continue compression stockings Hypertension: Controlled. -Continue lisinopril and metoprolol Diabetes mellitus 2 with previous hypoglycemic episode -No further hypoglycemia. Blood glucose readings [id number] -Patient did not require insulin in over 5 days. Accu-Cheks and sliding so insulin was discontinued -Patient was counseled on refusal of Accu-Cheks and insulin. I have risk of developing DKA. -Hemoglobin A1c 6.8 indicating well controlled diabetes as patient was on insulin previously. -Refuses diabetic diet. Anemia of chronic disease -S/p pRBC transfusion with improved H/H. Hemoglobin stable at 9.5. -Stool occult blood positive 1. GI performed endoscopy which showed gastritis and esophageal ring status post dilatations and biopsy. Ok with GI for aspirin. Refused colonoscopy. -Continue to monitor. C. difficile colitis: -Completed Flagyl 07/06/16. -Monitor electrolytes Chronic left shoulder pain -Discussed with patient by multiple practitioners that this is a chronic illness nothing acute at this time. Patient will need to follow up outpatient for further management. DVT prophylaxis, SCD's and subcutaneous heparin, patient refusing heparin intermittently Discharge Planning Case management for discharge planning. Awaiting infectious disease evaluation for discharge planning Latrell Mcnair Aug 12, 2016 09:53
--- NOTE | 2016-08-12 16:47 | HHI.IDPN ---
Note Infectious Disease Note ID coverage. Patient seen and examined. Asked to see patient to decide on treatment duration for aspergillus pneumonia. Feels better than he did last week. On RA and not SOB. Get some dyspnea with exertion. Little cough and sputum production less. No fever or chills Appetite ok. Antibiotics Doxycycline Voriconazole Lines Line sites with no e/o bleed. 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 Vital Signs Date Time Temp Pulse Resp B/P Pulse Ox O2 Delivery O2 Flow Rate FiO2 08/12/16 09:50 18 08/12/16 08:00 97.6 71 18 128/80 95 08/11/16 20:00 98.0 80 20 137/72 95 08/11/16 19:50 94 21 Laboratory Tests Test 08/11/16 04:37 Sodium Level 144 MEQ/L Potassium Level 4.0 MEQ/L Chloride Level 106 MEQ/L Carbon Dioxide Level 28.1 MEQ/L Anion Gap 10 MEQ/L Blood Urea Nitrogen 28 MG/DL Creatinine 0.82 MG/DL Estimat Glomerular Filtration 91 ML/MIN Rate Random Glucose 142 MG/DL Calcium Level 7.9 MG/DL Magnesium Level 1.9 MG/DL Total Bilirubin 0.3 MG/DL Aspartate Amino Transf 21 U/L (AST/SGOT) Alanine Aminotransferase 24 U/L (ALT/SGPT) Alkaline Phosphatase 54 U/L Total Protein 5.5 GM/DL Albumin 2.7 GM/DL Imaging Lower Extremity Ultrasound 08/10/16 0000 Signed Impressions: Service Date/Time: Wednesday, August 10, 2016 16:21 - CONCLUSION: 1. Negative for deep venous thrombosis. Subcutaneous edema present. Stalin Alexis MD Chest X-Ray 06/05/16 1223 Signed Impressions: Service Date/Time: June 12:50 - CONCLUSION: Hyperinflation which can be seen with COPD. No acute cardiopulmonary disease and no evidence for an infiltrate. Mani Lopez MD Upper Extremity Ultrasound 06/05/16 0000 Signed Impressions: Service Date/Time: June 16:01 - CONCLUSION: No evidence of upper extremity DVT on the right or left. Matt Sapp MD Elbow X-Ray 06/05/16 0000 Signed Impressions: Service Date/Time: June 17:02 - CONCLUSION: Minimal arthritic findings. Prominent soft tissue swelling of the olecranon process indicating possible olecranon bursitis. Matt Sapp MD Physical Exam GENERAL: Elderly chronically ill appearing male patient. No apparent distress. SKIN: No rashes, ecchymoses or lesions. Cool and dry. HEENT: Pupils equal round and reactive. Extraocular motions intact. No scleral icterus. No injection or drainage. CARDIOVASCULAR: Nl S1S2. RESPIRATORY: Breath sounds diminished. Crackles at the bases. GASTROINTESTINAL: Abdomen soft, non-tender, nondistended. EXTREMITIES: No clubbing, cyanosis or edema. NEUROLOGICAL: Awake and alert. Grossly non focal Psych: cooperative IV line sites with no e/o infection. Assessment & Plan Diagnosis: (1) Aspergillosis, with pneumonia Continue Voriconazole PO 200 bid x 6 months. Clinically improved on the antibiotics. (2) COPD with acute exacerbation (3) Cardiomyopathy. Patient plans to return to [place] at the beginning of September. He has been notified to get a primary care doctor and referral to an infectious disease doctor to follow up his infection. He can also follow up with ID Dr Felder in 1 week after discharge. Doni Webb MD Aug 12, 2016 16:47
[2016-08-12 20:00] VITALS: BP 127/79; PULSE 81; RESP 20; TEMP 97.9; O2SAT 94
[2016-08-12] MEDS: ASPIRIN 81 MG CHEW TAB CHEW SCH (20:45)
[2016-08-12] MEDS: ZOLPIDEM TARTRATE 5 MG TAB PO PRN (22:18)
[2016-08-13 08:23] VITALS: BP 110/67; PULSE 64; RESP 20; TEMP 95.4; O2SAT 91
[2016-08-13] MEDS: HEPARIN SODIUM - SQ 10,000 UNITS/ML VIAL SQ SCH (08:55)
[2016-08-13] MEDS: POTASSIUM CHLORIDE 10 MEQ CONTROLLED RELEASE TAB PO SCH (08:56)
[2016-08-13] MEDS: FUROSEMIDE 20 MG TAB PO SCH (08:56)
[2016-08-13] MEDS: LACTOBACILLUS ACIDOPHILUS TAB PO SCH ×2 (08:56→14:11)
[2016-08-13] MEDS: PANTOPRAZOLE SOD 20 MG DELAYED RELEASE TAB PO SCH (08:56)
[2016-08-13] MEDS: predniSONE 10 MG TAB PO SCH (08:56)
[2016-08-13] MEDS: LISINOPRIL 20 MG TAB PO SCH (08:56)
[2016-08-13] MEDS: MAGNESIUM CHLORIDE 64 MG TAB PO SCH (08:56)
[2016-08-13] MEDS: METOPROLOL TARTRATE 50 MG TAB PO SCH (08:57)
[2016-08-13] MEDS: ACETAMINOPHEN/HYDROcodone 325 MG/5 MG TAB PO PRN (09:04)
[2016-08-13] MEDS: BUDESONIDE-FORMOTEROL 160/4.5 MCG INHALER INH SCH (09:04)
[2016-08-13] MEDS: VORICONAZOLE 200 MG TAB PO SCH (09:09)
[2016-08-13 10:04] VITALS: RESP 20
[2016-08-13] MEDS ORDERED: MISC-289 (10:56)
[2016-08-13] MEDS ORDERED: MISC-163 (10:56)
[2016-08-13] MEDS ORDERED: PRED5TAB PO (11:09)
[2016-08-13] MEDS ORDERED: METO-309 PO (11:09)
[2016-08-13] MEDS ORDERED: PANT20 PO (11:09)
[2016-08-13] MEDS ORDERED: VORI200T6 PO (11:09)
[2016-08-13] MEDS ORDERED: POTA-243 PO (11:09)
[2016-08-13] MEDS ORDERED: MAGN64 PO (11:09)
[2016-08-13] MEDS ORDERED: FURO20TA PO (11:09)
[2016-08-13] MEDS ORDERED: LISI-515 PO (11:09)
[2016-08-13] MEDS ORDERED: LACT PO (11:09)
[2016-08-14] MEDS ORDERED: predniSONE 5 MG TAB PO SCH (09:00)
--- NOTE | 2016-10-08 16:37 | HHI.DS ---
Discharge Summary Admission Date Jun 05, 2016 at 15:00 Discharge Date: Aug 13, 2016 Admitting Diagnosis svt, sepsis (1) SVT (supraventricular tachycardia) ICD Code: I47.1 (2) Severe sepsis ICD Code: A41.9 (3) COPD with acute exacerbation ICD Code: J44.1 (4) Sepsis ICD Code: A41.9 (5) Cellulitis of right upper extremity ICD Code: L03.113 (6) Abscess of hand, right ICD Code: L02.511 (7) Olecranon bursitis, right elbow ICD Code: M70.21 (8) Dizziness ICD Code: R42 (9) Hypokalemia ICD Code: E87.6 Procedures Incision and drainage of right hand abscess Bronchoscopy EGD with dilatation Brief History - From Admission patient is a 76 y/o male with history of CAD, diabetes who [facility]. he says that he's had swelling and erythema of both upper extremities- however more on the right side- over the past four days. he says that this has been getting worse. he says that he thinks he was given antibiotic in jail. not sure if he had any fever. he denies any chest pain but had some sob which improved by the time of my examination. he denies any productive cough. he was found to have SVT at the time of presentation to ER for which he received Adenosine and Cardizem and then placed on cardizem drip. Imaging Last Impressions Lower Extremity Ultrasound 08/10/16 0000 Signed Impressions: Service Date/Time: Wednesday, August 10, 2016 16:21 - CONCLUSION: 1. Negative for deep venous thrombosis. Subcutaneous edema present. Stalin Alexis MD Chest X-Ray 08/05/16 1430 Signed Impressions: Service Date/Time: Friday, August 05, 2016 14:47 - CONCLUSION: 1. COPD changes. No acute abnormality identified. 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 Angelina Griffin MD Upper Extremity Ultrasound 06/20/16 0000 Signed Impressions: Service Date/Time: Monday, June 20, 2016 10:13 - CONCLUSION: Negative ultrasound with no evidence of abscess. Beau Croft MD Barium Swallow X-Ray 06/20/16 0000 Signed Impressions: Service Date/Time: Monday, June 20, 2016 17:17 - CONCLUSION: Unremarkable exam with no evidence of stricture or obstruction. Beau Croft MD Elbow X-Ray 06/05/16 0000 Signed Impressions: Service Date/Time: June 17:02 - CONCLUSION: Minimal arthritic findings. Prominent soft tissue swelling of the olecranon process indicating possible olecranon bursitis. Matt Sapp MD PE at Discharge GENERAL: Well-developed, well-nourished, in no acute distress. alert and orientated HEENT: Head is normocephalic without any lesions or masses noted. Facial features are symmetric. Eyes: Extraocular muscles are intact. Conjunctivae were clear. NECK: Supple without any masses. Trachea midline no deviation. CARDIAC: Regular rhythm, regular rate. S1/S2 are heard. No murmurs gallops or rubs. LUNGS: Clear to auscultation bilaterally. No wheeze, rhonchi or rales. No use of accessory muscles on inspiration or expiration. ABDOMEN: Soft, nontender. Nondistended. Bowel sounds heard in all 4 quadrants. No organomegaly or masses. Negative rebound, negative guarding EXTREMITIES: 1+ pitting edema noted to the bilateral feet, no pretibial edema, pulses are equal bilaterally. No cyanosis or clubbing NEUROLOGY: Mood and affect appear appropriate. Cranial nerves II through XII grossly intact. Moving all extremities, speech is clear Hospital Course Aspergillus pneumonia -Status post treatment with Zosyn and Levaquin. -Bronchial washings culture with Aspergillus niger, on Voriconazole since 06/27 as indicated by escrow secretary and the patient would have to remain on medication for at least 4 months -Infectious disease started patient on doxycycline after repeat CT scan was done. Cultures did not grow any infectious etiology. Production Or Plant Engineer recommend discontinuing IV doxycycline and continued by mouth doxycycline for 5 days -As indicated in previous note that escrow secretary indicate continuation of Voriconazole for 4 months, doxycycline for 5 days and weaning of prednisone and he will see patient in the hospital if he still remains hospitalized on August -CT of the chest shows improvement of the pleural effusion, however progressive worsening of acute infection consistent with the history of aspergillosis. This result was discussed with escrow secretary as well as infectious disease who does not feel that the patient is any worse. He is actually clinically improved. Production Or Plant Engineer requesting repeat CT in 6 weeks -We'll consult infectious disease for further recommendations and discharge planning Severe sepsis due to cellulitis of the right upper extremity/right olecranon bursitis now resolved. -Previous venous Doppler of the upper extremities with no DVT -US of the right upper extremity with a complex mass overlying the right third finger. S/p I/D of the right hand MRSA abscess and treatment with Vancomycin. -Evaluated by ortho and hand surgery; cleared by hand surgery. Hypernatremia, resolved Encourage by mouth intake Continue monitor sodium level COPD exacerbation: Resolved -Patient failed walk test recommended oxygen which he was on prior. -Pulmonology following. Continue O2, nebulizer as needed Pulmonary nodules -Status post bronchoscopy; negative cytology. Repeat CT in 2 months, follow-up with pulmonology as an outpatient. SVT: due to sepsis; s/p Cardizem. -S/p cardiology consultation. -Continue Beta rosy Ischemic cardiomyopathy -S/p stent placement 2001, follow-up angiogram no intervention needed per patient. -Elevated troponin likely due to presenting tachycardia/sepsis. -Echo with EF 35% cautious use of BB hx of COPD -Cardiology reconsulted on 06/05, nonsustained VT felt to be secondary to NAN . Information from Dr Vora shows ECHO May 2016 with normal EF and cath from 2014 (Apr per pt) with stable CAD. Elevated trop likely from sepsis -Continue on aspirin. Continue to monitor. -Continue Lisinopril -Refuses heart healthy diet Acute on chronic systolic CHF exacerbation, resolved -Continue Lasix and monitor electrolytes. Bilateral feet edema, -ultrasound does not indicate any DVT in the left lower extremity -Protein level is low, could be secondary to protein malnutrition, continue protein supplement -Continue compression stockings Hypertension: Controlled. -Continue lisinopril and metoprolol Diabetes mellitus 2 with previous hypoglycemic episode -No further hypoglycemia. Blood glucose readings [id number] -Patient did not require insulin in over 5 days. Accu-Cheks and sliding so insulin was discontinued -Patient was counseled on refusal of Accu-Cheks and insulin. I have risk of developing DKA. -Hemoglobin A1c 6.8 indicating well controlled diabetes as patient was on insulin previously. -Refuses diabetic diet. Anemia of chronic disease -S/p pRBC transfusion with improved H/H. Hemoglobin stable at 9.5. -Stool occult blood positive 1. GI performed endoscopy which showed gastritis and esophageal ring status post dilatations and biopsy. Ok with GI for aspirin. Refused colonoscopy. -Continue to monitor. C. difficile colitis: -Completed Flagyl 07/06/16. -Monitor electrolytes Chronic left shoulder pain -Discussed with patient by multiple practitioners that this is a chronic illness nothing acute at this time. Patient will need to follow up outpatient for further management. Pt Condition on Discharge: Stable Discharge Disposition: Discharge Home Discharge Time: > 30 minutes Discharge Instructions DIET: Follow Instructions for: Heart Healthy Diet, Diabetic Diet, Soft Diet Activities you can perform: Regular-No Restrictions Activities to Avoid: Driving Follow up Referrals: Infectious Disease - [address] Adler PCP Follow-up - 2-3 Days Pulmonology - 2 Weeks with Liv Pinedo MD New Medications: 3-in-1 Bedside Toilet (3-in-1 Bedside Toilet) 1 Mis Mis 1 EA .ROUTE DIRECTED #1 EA Bath Bench with Back (Bath Bench with Back) 1 Mis Mis 1 EA .ROUTE DIRECTED #1 EA Voriconazole (Voriconazole) 200 Mg Tab 200 MG PO Q12H Fungal Infection #60 Ref 0 TAB Furosemide (Furosemide) 20 Mg Tab 20 MG PO BID Blood Pressure Management Days 30 TAB Lactobacillus Acidophilus (Acidophilus/l-Sporogenes) 1 Tab Tab 1 TAB PO TID probiotic Days 14 TAB Lisinopril (Lisinopril) 20 Mg Tab 20 MG PO BID Blood Pressure Management Days 30 TAB Magnesium Chloride (Mag64) 64 Mg Tab 64 MG PO Q12HR electrolyte replacement Days 30 TAB Metoprolol Tartrate (Lopressor) 50 Mg Tab 50 MG PO Q12HR Blood Pressure Management Days 30 TAB Pantoprazole (Protonix) 20 Mg Tab 20 MG PO DAILY GI protection Days 30 TAB Potassium Chloride ER (Klor-Con 10) 10 Meq Tab 20 MEQ PO DAILY electrolyte replacement Days 30 TAB Prednisone (Prednisone) 5 Mg Tab 5 MG PO DAILY COPD #10 TAB Continued Medications: Albuterol 6.7 GM Inh (Proventil Hfa 6.7 GM Inh) 90 Mcg/Act Aer 2 PUFF INH QID COPD #1 Ref 0 INHALER Albuterol Neb (Albuterol Neb) 2.5 Mg/3 Ml Neb 2.5 MG NEB Q6HR PRN SHORTNESS OF BREATH Ref 0 NEBULE Aspirin (Aspirin Children's) 81 Mg Chew 81 MG CHEW DAILY PROPHYLAXIS CVA/GA Ref 0 TAB Budesonide-Formoterol Inh (Symbicort Inh) 160-4.5 Mcg/Act Aero 2 PUFF INH BID COPD #1 Ref 0 INHALER Tiotropium Inh (Spiriva Handihaler) 18 Mcg Cap 18 MCG INH DAILY 1 capsule = 18 mcg PREVENT BRONCHOSPASM #30 Ref 0 CAP Discontinued Medications: Acetaminophen (Mapap) 325 Mg Tab 650 MG PO Q4HR PRN PAIN Ref 0 TAB Ascorbic Acid (Ascorbic Acid) 500 Mg Tab 500 MG PO DAILY PROPHYLAXIS ANEMIA TAB Clonidine (Clonidine) 0.1 Mg Tab 0.1 MG PO Q12HR PRN BP>140/90 Ref 0 TAB Cyanocobalamin (B-12) 1,000 Mcg Cap 1000 MCG PO DAILY Nutritional Supplement #1 Ref 0 BOTTLE Dextromethorphan-Guaifenesin Liq (Cheracol-D Cough Liq) 10-100 Mg/5 Ml Liq 5 ML PO Q6H PRN COUGH Ref 0 ML Diltiazem ER 24 HR (Diltiazem ER 24 HR) 180 Mg Caper 180 MG PO DAILY AFIB CAP Ergocalciferol (Ergocalciferol) 50,000 Unit Cap 33290 UNITS PO WEEKLY ON FRIDAYS Nutritional Supplement #30 Ref 0 CAP Insulin Aspart Inj (Novolog Flexpen Inj) 300 Unit/3 Ml Pen 2 UNITS SQ TIDAC TYPE 1 DM #1 Ref 0 PEN Insulin Aspart Inj (Novolog Inj) 1,000 Unit/10 Ml Vial 2-6 UNITS SQ ACHS Max dose at bedtime ( ) units; sugars less than 70,(0) units; sugars 161-220,(2) units; sugars 221-280,(3) units; sugars 281-340,(4) units; sugars 341-400,(5) units; sugars greater than 401+,(6)units Blood Sugar Management #10 Ref 0 ML Insulin Detemir Inj (Levemir Flextouch Pen Inj) 300 unit/3 ML Pen 12 UNITS SQ DAILY TYPE 1 DM Ref 0 PEN Insulin Detemir Inj (Levemir Flextouch Pen Inj) 300 unit/3 ML Pen 8 UNITS SQ HS TYPE 1 DM Ref 0 PEN Ketotifen Fumarate (Ophth) (Allergy Eye Drops) 0.025 % Abdirashid 1 DROP EACH EYE QID EYE ITCH Lisinopril (Lisinopril) 20 Mg Tab 20 MG PO DAILY HTN #30 Ref 0 TAB Magnesium Hydroxide Liq (Milk of Magnesia Liq) 400 Mg/5 Ml Susp 30 ML PO HS PRN IF NO BM WITHIN 3 DAYS #30 Ref 0 ML Multiple Vitamins W/ Minerals (Theragran-M) 1 Tab 1 TAB PO DAILY Nutritional Supplement Ref 0 TAB Latrell Mcnair Oct 08, 2016 16:37
== END 2016-08-13 14:51 | disposition home or self-care (01) | DRG 853 ==
LOC: NEPC 12:01 → NEDA 15:00 → NEDH 19:42 → HCIS 06-06 10:20 → N05A 06-26 03:11 → UNDODISIN 06-26 19:15 → PH5A 07-07 14:46
PROVIDERS: ADMIT Internal Medicine; ATTEND Internal Medicine
PROC: 30233N1 Transfusion of Nonautologous Red Blood Cells into Peripheral Vein, Percutaneous Approach (ICD-10-PCS; 2016-06-08)
PROC: 0J9J0ZX Drainage of Right Hand Subcutaneous Tissue and Fascia, Open Approach, Diagnostic (ICD-10-PCS; 2016-06-10)
PROC: 0B9J8ZX Drainage of Left Lower Lung Lobe, Via Natural or Artificial Opening Endoscopic, Diagnostic (ICD-10-PCS; 2016-06-20)
PROC: 0B9F8ZX Drainage of Right Lower Lung Lobe, Via Natural or Artificial Opening Endoscopic, Diagnostic (ICD-10-PCS; 2016-06-20)
PROC: 0B958ZX Drainage of Right Middle Lobe Bronchus, Via Natural or Artificial Opening Endoscopic, Diagnostic (ICD-10-PCS; 2016-06-20)
PROC: 0BBG8ZX Excision of Left Upper Lung Lobe, Via Natural or Artificial Opening Endoscopic, Diagnostic (ICD-10-PCS; principal; 2016-06-20 11:52)
PROC: 0DB68ZX Excision of Stomach, Via Natural or Artificial Opening Endoscopic, Diagnostic (ICD-10-PCS; 2016-06-26)
PROC: 0D758ZZ Dilation of Esophagus, Via Natural or Artificial Opening Endoscopic (ICD-10-PCS; 2016-06-26)
DX: A41.02 Sepsis due to Methicillin resistant Staphylococcus aureus (principal); I50.23 Acute on chronic systolic (congestive) heart failure; B44.1 Other pulmonary aspergillosis; I47.2 Ventricular tachycardia; E87.0 Hyperosmolality and hypernatremia; J18.9 Pneumonia, unspecified organism; A04.7 Enterocolitis due to Clostridium difficile; I48.0 Paroxysmal atrial fibrillation; I13.0 Hypertensive heart and chronic kidney disease with heart failure and stage 1 through stage 4 chronic kidney disease, or unspecified chronic kidney disease; J44.0 Chronic obstructive pulmonary disease with (acute) lower respiratory infection; I47.1 Supraventricular tachycardia; J44.1 Chronic obstructive pulmonary disease with (acute) exacerbation; L03.113 Cellulitis of right upper limb; L03.114 Cellulitis of left upper limb; L02.511 Cutaneous abscess of right hand; J98.11 Atelectasis; R04.2 Hemoptysis; E11.22 Type 2 diabetes mellitus with diabetic chronic kidney disease; J44.9 Chronic obstructive pulmonary disease, unspecified; K22.2 Esophageal obstruction; E11.649 Type 2 diabetes mellitus with hypoglycemia without coma; R65.20 Severe sepsis without septic shock; M70.21 Olecranon bursitis, right elbow; F32.9 Major depressive disorder, single episode, unspecified; D63.8 Anemia in other chronic diseases classified elsewhere; I25.10 Atherosclerotic heart disease of native coronary artery without angina pectoris; I25.2 Old myocardial infarction; R74.8 Abnormal levels of other serum enzymes; I25.5 Ischemic cardiomyopathy; K21.9 Gastro-esophageal reflux disease without esophagitis; N18.9 Chronic kidney disease, unspecified; I73.9 Peripheral vascular disease, unspecified; R19.5 Other fecal abnormalities; J45.909 Unspecified asthma, uncomplicated; K29.70 Gastritis, unspecified, without bleeding; K59.00 Constipation, unspecified; E11.65 Type 2 diabetes mellitus with hyperglycemia; G47.33 Obstructive sleep apnea (adult) (pediatric); R04.0 Epistaxis; E87.6 Hypokalemia; R42 Dizziness and giddiness; I95.9 Hypotension, unspecified; M46.90 Unspecified inflammatory spondylopathy, site unspecified; M19.019 Primary osteoarthritis, unspecified shoulder; M25.512 Pain in left shoulder; E87.8 Other disorders of electrolyte and fluid balance, not elsewhere classified; M54.2 Cervicalgia; T38.0X5A Adverse effect of glucocorticoids and synthetic analogues, initial encounter; T46.4X5A Adverse effect of angiotensin-converting-enzyme inhibitors, initial encounter; Z59.0 Homelessness; Z79.4 Long term (current) use of insulin; Z85.51 Personal history of malignant neoplasm of bladder; Z87.891 Personal history of nicotine dependence; Z88.2 Allergy status to sulfonamides; Z91.14 Patient's other noncompliance with medication regimen; Z91.19 Patient's noncompliance with other medical treatment and regimen; Z95.5 Presence of coronary angioplasty implant and graft; Z99.81 Dependence on supplemental oxygen
CPT/HCPCS: 36430; 71010; 71020; 71250; 73080; 74230; 76882; 76937; 80048; 80053; 80076; 80202; 81001; 82272; 82565; 82728; 82947; 82948; 83036; 83540; 83550; 83605; 83735; 83880; 84100; 84132; 84155; 84443; 84484; 84550; 85007; 85014; 85018; 85025; 85027; 85610; 85730; 86140; 86403; 86850; 86900; 86901; 86920; 86922; 87015; 87040; 87070; 87071; 87077; 87102; 87116; 87186; 87205; 87206; 87493; 88112; 88305; 93005; 93306; 93308; 93970; 93971; 94060; 94150; 94620; 94640; 94664; 94667; 94668; 96365; 96375; 96376; C1769; J0153; J0282; J0692; J1170; J1644; J1815; J1940; J1956; J2250; J2405; J2543; J2920; J3370; J7030; J7040; J7050; J7060; J7512; J7613; P9016

== ENCOUNTER 2017-09-27 01:13 | Inpatient (IN) | payer MEDICARE, OTHER ==
[2017-09-27] VITALS (35 sets, daily range): BP systolic 76–175; BP diastolic 50–79; PULSE 80–97; RESP 15–41; TEMP 97.7–98.2; O2SAT 92–100
[~2017-09-27] VITALS: Ht 172 cm; Wt 75.0 kg
[~2017-09-27 01:13] MED LIST changes: +ALBU0.08 NEB; +ALBU6.7H INH; +ASPI81CH7 CHEW; +FURO20TA PO; +KLOR10TA PO; +LACT PO; +LISI-515 PO; +MAGN64 PO; +METO-309 PO; +MISC-163; +MISC-289; +PANT20 PO; -PRED20 PO; +PRED5TAB PO; +SPIRCAP INH; +SYMB160A INH; +VORI200T6 PO
--- NOTE | 2017-09-27 01:27 | PD ---
HPI Chief Complaint: Short of breath Time Seen by Provider: 01:23 Travel History International Travel<30 days: No Contact w/Intl Traveler<30days: No Traveled to known affect area: No History of Present Illness HPI Per report from [facility], apparently the patient asked for pain medication and was given a hydrocodone approximately 2 hours ago. Then upon be asking to go use the bathroom and ask for assistance the CIVIL ENGINEER'S AIDE noticed that he was slumped over and did not seem to be responsive. 911 was called, upon arrival EMS states that he was and respiratory distress with severe work of breathing and the patient required intubation emergently. EMS stated that they used 20 of etomidate of 4 mg of Versed to aid in sedation for the intubation. Per chart review allergic to sulfa Past medical history per chart review shows generalized muscle weakness, PR 3, paroxysmal atrial fibrillation, status post stenting cardiac, hypertension, COPD with chronic hypoxemic respiratory failure, GERD, bladder CA, chronic kidney disease, history of depression, C. difficile, MRSA, PFSH Past Medical History AAA: Yes Arthritis: Yes Depression: Yes Heart Rhythm Problems: Yes (PR X 3/PAROXYSMAL A-FIB) Cancer: Yes (HX OF BLADDER CANCER ) Cardiovascular Problems: Yes COPD: Yes GERD: Yes Genitourinary: Yes (CHRONIC KIDNEY DISEASE/BLADDER CA) Hypertension: Yes Neurologic: Yes (GENERAL MUSCLE WEAKNESS) Respiratory: Yes Integumentary: Yes (BASAL CALL ) Past Surgical History Coronary Stent: Yes (4 STENTS ) Genitourinary Surgery: Yes (bladder ca) Social History Alcohol Use: No Tobacco Use: No (QUIT 14 YEARS AGO ) Substance Use: No Allergies-Medications (Allergen,Severity, Reaction): Coded Allergies: Sulfa (Sulfonamide Antibiotics) (Verified Allergy, Severe, Anaphylaxis, ) *MDRO Multi-Drug Resistant Organism (Verified Adverse Reaction, Unknown, ) MRSA (hand)-06/10/16 Reported Meds & Prescriptions Reported Meds & Active Scripts Active Protonix (Pantoprazole Sodium) 20 Mg Tab 20 Mg PO DAILY 30 Days Lopressor (Metoprolol Tartrate) 50 Mg Tab 50 Mg PO Q12HR 30 Days 3-in-1 Bedside Toilet (Device) 1 Mis Mis 1 Ea .ROUTE DIRECTED Reported Novolog Inj (Insulin Aspart) 1,000 Unit/10 Ml Vial 0 SQ DIRECTED Sliding Scale as directed. Colace (Docusate Sodium) 100 Mg Capsule 100 Mg PO BID Ferrous Sulfate 325 Mg (65 Mg Iron) Tablet 325 Mg PO DAILY Atorvastatin (Atorvastatin Calcium) 40 Mg Tab 40 Mg PO HS Bumetanide 1 Mg Tab 1 Mg PO DAILY Duloxetine DR (Duloxetine HCl) 60 Mg Capdr 60 Mg PO DAILY Diphenhydramine (Diphenhydramine HCl) 25 Mg Cap 50 Mg PO Q6H PRN Fenofibrate 50 Mg Cap 100 Mg PO DAILY Lantus Inj (Insulin Glargine) 1,000 Unit/10 Ml Vial 10 Units SQ HS Spiriva Handihaler (Tiotropium Inh) 18 Mcg Cap 18 Mcg INH DAILY 1 capsule = 18 mcg Symbicort Inh (Budesonide/Formoterol Fumarate) 160-4.5 Mcg/Act Aero 2 Puff INH BID Proventil Hfa 6.7 GM Inh (Albuterol Sulfate) 90 Mcg/Act Aer 2 Puff INH QID Aspirin Children's (Aspirin) 81 Mg Chew 81 Mg CHEW DAILY Albuterol Neb (Albuterol Sulfate) 2.5 Mg/3 Ml Neb 2.5 Mg NEB Q6HR PRN Review of Systems ROS Limitations: Intubated General / Constitutional: No: Fever Eyes: No: Visual changes HENT: No: Headaches Cardiovascular: No: Chest Pain or Discomfort Respiratory: Positive: Shortness of Breath Gastrointestinal: No: Abdominal Pain Genitourinary: No: Dysuria Musculoskeletal: No: Pain Skin: No Rash Neurologic: No: Weakness Psychiatric: No: Depression Endocrine: No: Polydipsia Hematologic/Lymphatic: No: Easy Bruising Physical Exam Exam Limitations: Clinical Condition Narrative GENERAL: Patient arrives status post intubated with an 8 oh ET tube by EMS 24 at the lip, confirmed to have bilateral breath sounds and no borborygmi SKIN: Warm and dry. HEAD: Atraumatic. Normocephalic. EYES: Pupils equal and round. No scleral icterus. No injection or drainage. ENT: No nasal bleeding or discharge. Mucous membranes pink and moist. NECK: Trachea midline. No JVD. CARDIOVASCULAR: Regular rate and rhythm. RESPIRATORY: No accessory muscle use. Clear to auscultation. Breath sounds equal bilaterally. GASTROINTESTINAL: Abdomen soft, non-tender, nondistended. Hepatic and splenic margins not palpable. MUSCULOSKELETAL: Extremities without clubbing, cyanosis, or edema. No obvious deformities. NEUROLOGICAL: Initial GCS of 3T, however this may still be the lingering effects of the etomidate and 4 mg of benzodiazepine that was used prior to arrival to aid intubation Data Data Last Documented VS Vital Signs Date Time Temp Pulse Resp B/P (MAP) Pulse Ox O2 Delivery O2 Flow Rate FiO2 09/27/17 03:47 81 16 106/55 (72) 09/27/17 03:46 97.8 09/27/17 03:42 98 Venturi Mask 09/27/17 01:15 100 Orders Orders Sepsis Workup Initiated (09/27/17 ) Electrocardiogram (09/27/17:28) Complete Blood Count With Diff (09/27/17) Comprehensive Metabolic Panel (09/27/17) Prothrombin Time / Inr (Pt) (09/27/17) Act Partial Throm Time (Ptt) (09/27/17:) Lactic Acid Sepsis Protocol (09/27/17) Lipase (09/27/17) Ckmb (Isoenzyme) Profile (09/27/17) Troponin I (09/27/17:) Urinalysis - C+S If Indicated (09/27/17) Blood Culture (09/27/17:) Pneumococcal Urinary Antigen (09/27/17) Legionella Urinary Antigen (09/27/17) Chest, Single Ap (09/27/17:28) Arterial Blood Gas (Abg) (09/27/17:) Blood Glucose (09/27/17:28) Ecg Monitoring (09/27/17:) Iv Access Insert/Monitor (09/27/17:) Oximetry (09/27/17:28) Oxygen Administration (09/27/17:) Urinary Catheter Insert/Apply (09/27/1728) Sodium Chlorid 0.9% 500 Ml Inj (Ns 500 M (09/27/17 01:45) Urine Culture (09/27/17 01:35) Chest, Single Ap (09/27/17 02:59) Phenylephrine Inj (Neosynephrine Inj) (09/27/17 03:15) Terbutaline Inj (Brethine Inj) (09/27/17 03:15) Sodium Chlor 0.9% 1000 Ml Inj (Ns 1000 M (09/27/17 03:15) Calcium Gluconate Inj (Calcium Gluconate (09/27/17 03:15) Labs Laboratory Tests Test 09/27/17 01:35 09/27/17 02:35 White Blood Count 8.2 TH/MM3 Red Blood Count 3.00 MIL/MM3 Hemoglobin 8.0 GM/DL Hematocrit 26.4 % Mean Corpuscular Volume 87.9 FL Mean Corpuscular Hemoglobin 26.7 PG Mean Corpuscular Hemoglobin Concent 30.4 % Red Cell Distribution Width 26.8 % Platelet Count 99 TH/MM3 Mean Platelet Volume 11.2 FL Neutrophils (%) (Auto) 56.6 % Lymphocytes (%) (Auto) 31.4 % Monocytes (%) (Auto) 9.6 % Eosinophils (%) (Auto) 1.4 % Basophils (%) (Auto) 1.0 % Neutrophils # (Auto) 4.6 TH/MM3 Lymphocytes # (Auto) 2.6 TH/MM3 Monocytes # (Auto) 0.8 TH/MM3 Eosinophils # (Auto) 0.1 TH/MM3 Basophils # (Auto) 0.1 TH/MM3 CBC Comment AUTO DIFF Differential Comment AUTO DIFF CONFIRMED Platelet Estimate LOW Platelet Morphology Comment NORMAL Polychromasia 3.3 % Target Cells 1+ Ovalocytes 1+ Acanthocytes OCC Keratocytes OCC Prothrombin Time 14.7 SEC Prothromb Time International Ratio 1.5 RATIO Activated Partial Thromboplast Time 27.6 SEC Urine Color YELLOW Urine Turbidity CLEAR Urine pH 5.0 Urine Specific [place] 1.016 Urine Protein NEG mg/dL Urine Glucose (UA) NEG mg/dL Urine Ketones NEG mg/dL Urine Occult Blood NEG Urine Nitrite NEG Urine Bilirubin NEG Urine Urobilinogen LESS THAN 2.0 MG/DL Urine Leukocyte Esterase NEG Urine RBC 1 /hpf Urine WBC 1 /hpf Urine Squamous Epithelial Cells 1 /hpf Urine Bacteria RARE /hpf Urine Hyaline Casts 2 /lpf Microscopic Urinalysis Comment CATH-CULTURE IND Blood Urea Nitrogen 49 MG/DL Creatinine 4.77 MG/DL Random Glucose 103 MG/DL Total Protein 4.9 GM/DL Albumin 1.4 GM/DL Calcium Level 6.8 MG/DL Alkaline Phosphatase 68 U/L Aspartate Amino Transf (AST/SGOT) 59 U/L Alanine Aminotransferase (ALT/SGPT) 21 U/L Total Bilirubin 0.8 MG/DL Sodium Level 143 MEQ/L Potassium Level 4.6 MEQ/L Chloride Level 102 MEQ/L Carbon Dioxide Level 24.7 MEQ/L Anion Gap 16 MEQ/L Estimat Glomerular Filtration Rate 12 ML/MIN Lactic Acid Level 11.3 mmol/L Protein Corrected Calcium 7.9 MG/DL Total Creatine Kinase 86 U/L Troponin I LESS THAN 0.02 NG/ML Lipase 69 U/L Blood Gas Puncture Site RT RADIAL Blood Gas Patient Temperature 98.6 Blood Gas HCO3 25 mmol/L Blood Gas Base Excess -1.3 mmol/L Blood Gas Oxygen Saturation 98 % Arterial Blood pH 7.27 Arterial Blood Partial Pressure CO2 55 mmHg Arterial Blood Partial Pressure O2 289 mmHG Arterial Blood Oxygen Content 10.8 Vol % Arterial Blood Carboxyhemoglobin 0.9 % Arterial Blood Methemoglobin 1.0 % Blood Gas Hemoglobin 7.3 G/DL Oxygen Delivery Device VENTILATOR Blood Gas Ventilator Setting Blood Gas Inspired Oxygen 100 % MDM Medical Decision Making Medical Screen Exam Complete: Yes Emergency Medical Condition: Yes Medical Record Reviewed: Yes Differential Diagnosis Pneumonia versus hypoxemic respiratory failure versus hypercapnic respiratory failure versus sepsis versus UTI Narrative Course No leukocytosis, anemia 12/27, no left shift, relative thrombocytopenia of 99,000 Coagulation profile shows an INR 1.5 with a PT of 14.7 UA is negative for any evidence of UTI Electrolytes shows an anion gap of 16 BUN of 49 creatinine of 4.77 GFR of 12 Lactic acid 11.3 Calcium 6.8 with protein corrected calcium was 7.9 Liver enzymes within normal limits First set of cardiac enzymes negative Lipase 69 Chest x-ray read by radiologist shows mild bibasilar consolidation and small left pleural effusion, endotracheal pubis approximately 4 cm above the aretha in proper position. Currently pending repeat chest x-ray post left subclavian line placement Critical Care Narrative CRITICAL CARE NOTE: With evaluation of the patient, labs, EKG, receipt of radiologic studies, administration of medications, reevaluation the patient and discussion of the patient with the admitting physicians, the total critical care time was [60] minutes. Time to perform other separately billable procedures was not included in the critical care time. After the risks and benefits were discussed the following procedure was performed: CENTRAL VENOUS LINE: The site was prepped with Betadine and sterilely draped. It was infiltrated with 1% lidocaine plain. The deep vein was cannulated using normal Seldinger technique. A central line was placed in the [-left subclavian ] site and secured with simple interrupted suture. The site was sterilely dressed. The patient tolerated the procedure well. Diagnosis Primary Impression: Respiratory failure status post intubation Additional Impression: Septic shock Admitting Information Admitting Physician Requests: Admit David Padilla MD September 27, 2017 01:27
[2017-09-27] MEDS ORDERED: SODIUM CHLORID 0.9% 500 ML INJ 500 ML IV ONE (01:45)
[2017-09-27 02:03] LABS: AUTOMATED NEUTROPHIL # 4.6 TH/MM3 (1.8-7.7); BASOPHIL # 0.1 TH/MM3 (0-0.2); EOSINOPHIL # 0.1 TH/MM3 (0-0.4); EOSINOPHIL % 1.4 % (0.0-4.0); HEMATOCRIT 26.4 % (39.0-51.0); LYMPH % 31.4 % (9.0-44.0); LYMPHOCYTE # 2.6 TH/MM3 (1.0-4.8); MEAN CELL VOLUME 87.9 FL (80.0-100.0); MEAN CORPUSCULAR HEMOGLOBIN 26.7 PG (27.0-34.0); MEAN CORPUSCULAR HGB CONC 30.4 % (32.0-36.0); MEAN PLATELET VOLUME 11.2 FL (7.0-11.0); MONO % 9.6 % (0.0-8.0); MONOCYTE # 0.8 TH/MM3 (0-0.9); NEUT % 56.6 % (16.0-70.0); PLATELET COUNT 99 TH/MM3 (150-450); RED CELL DISTRIBUTION WIDTH 26.8 % (11.6-17.2); WHITE BLOOD COUNT 8.2 TH/MM3 (4.0-11.0)
[2017-09-27 02:12] LABS: BACTERIA, URINE RARE /hpf; BILIRUBIN, URINE NEG (NEG); BLOOD, URINE NEG (NEG); GLUCOSE,URINE NEG (NEG); HYALINE CAST, URINE 2 /lpf (RARE); KETONE, URINE NEG (NEG); NITRITE,URINE NEG (NEG); SQUAMOUS EPITHELIAL CELL URINE 1 /hpf (0-5); URINE COLOR YELLOW (YELLW/STRAW); URINE LEUKOCYTE ESTERASE NEG (NEG)
[2017-09-27 02:13] LABS: INTERNATIONAL NORMALIZED RATIO 1.5 RATIO; PROTHROMBIN TIME - PATIENT 14.7 SEC (9.8-11.6)
[2017-09-27 02:26] LABS: ALBUMIN 1.4 GM/DL (3.4-5.0); ALKALINE PHOSPHATASE 68 U/L (45-117); ALT (GPT) 21 U/L (12-78); AST (GOT) 59 U/L (15-37); BICARBONATE 24.7 MEQ/L (21.0-32.0); BLOOD UREA NITROGEN 49 MG/DL (7-18); CALCIUM 6.8 MG/DL (8.5-10.1); CALCIUM-PROTEIN CORRECTED 7.9 MG/DL (8.5-10.1); CHLORIDE 102 MEQ/L (98-107); CREATININE 4.77 MG/DL (0.60-1.30); GLOMERULAR FILTRATION RATE 12 ML/MIN (>89); GLUCOSE,RANDOM 103 MG/DL (74-106); SODIUM (NA) 143 MEQ/L (136-145); TOTAL BILIRUBIN ADULT 0.8 MG/DL (0.2-1.0); TOTAL PROTEIN 4.9 GM/DL (6.4-8.2); TROPONIN I LESS THAN 0.02 NG/ML (0.02-0.05)
[2017-09-27 02:28] LABS: LACTIC ACID SEPSIS PROTOCOL 11.3 mmol/L (0.4-2.0)
[2017-09-27 02:40] LABS: ACANTHOCYTES OCC (NORMAL); KERATOCYTES OCC (NORMAL); OVALOCYTES 1+ (NORMAL); TARGET CELLS 1+ (NORMAL)
[2017-09-27 02:44] LABS: POLYCHROMASIA 3.3 % (0.0-1.9)
--- NOTE | 2017-09-27 02:46 | RADRPT ---
EXAM DATE: 09/27/2017 2:31 AM EDT AGE/SEX: 77 years / Male INDICATIONS: Status post intubation. CLINICAL DATA: This is the patient's initial encounter. Patient reports that signs and symptoms have been present for 1 day and indicates a pain score of Nonresponsive. MEDICAL/SURGICAL HISTORY: Non-responsive. Non-responsive. COMPARISON: [facility] [place], 07/[place]. . FINDINGS: Mild patchy parenchymal consolidation seen of both lung bases. A small pleural effusion is possible o n the left. I don't see a pneumothorax. Heart size stable, within normal limits. Patient is intubated. Endotracheal tube tip is approximately 4 cm above the aretha. There is a nasoga stric tube coursing into the stomach. CONCLUSION: 1. Mild bibasilar consolidation and small left pleural effusion. 2. Appropriate endotracheal tube tip position. Electronically signed by: Christoph Baer MD 09/27/2017 2:44 AM EDT
[2017-09-27] MEDS ORDERED: LANTUS2P SQ (02:55)
[2017-09-27] MEDS ORDERED: ATOR40TA16 PO (02:55)
[2017-09-27] MEDS ORDERED: DULO1CAP3 PO (02:55)
[2017-09-27] MEDS ORDERED: BUME1TAB PO (02:55)
[2017-09-27] MEDS ORDERED: COLA100C5 PO (02:55)
[2017-09-27] MEDS ORDERED: DIPH25CA PO (02:55)
[2017-09-27] MEDS ORDERED: FERR325T18 PO (02:55)
[2017-09-27] MEDS ORDERED: FENO2.5C PO (02:55)
[2017-09-27] MEDS ORDERED: NOVOLOGP2 SQ (02:55)
[2017-09-27] MEDS ORDERED: SODIUM CHLOR 0.9% 1000 ML INJ 1,000 ML IV ONE ×3 (03:15→04:32)
[2017-09-27] MEDS ORDERED: CALCIUM GLUCONATE INJ 1 GM in SODIUM CHLORIDE 0.9% INJ 100 ML IV ONE (03:15)
[2017-09-27] MEDS ORDERED: TERBUTALINE INJ 1 MG/ML AMP SQ PRN ×2 (03:15→08:45)
[2017-09-27] MEDS: PHENYLEPHRINE INJ 40 MG in DEXTROSE 5% IN WATE 500 ML INJ 496 ML IV PRN ×6 (03:29→20:09)
--- NOTE | 2017-09-27 03:45 | RADRPT ---
EXAM DATE: 09/27/2017 3:20 AM EDT AGE/SEX: 77 years / Male INDICATIONS: Left subclavian central line placement. CLINICAL DATA: This is the patient's subsequent encounter. Patient reports that signs and symptoms h ave been present for 1 day and indicates a pain score of Nonresponsive. MEDICAL/SURGICAL HISTORY: Hypertension. Chronic obstructive pulmonary disease. Aneurysm, abdo prateek. ID Chronic kidney disease GERD Arthritis Coronary artery stent. COMPARISON: [facility], CHEST SINGLE AP, 09/27/2017. . FINDINGS: Patchy consolidation again seen in both lung bases, not significantly changed. Small left pleural eff usion again suspected. No large effusions seen. No pneumothorax. There is a left subclavian central venous catheter with tip projecting over the central to slightly l eft upper mediastinum. Endotracheal tube and nasogastric tube unchanged. The endotracheal tube tip is approximately 4 cm abo ve the aretha. CONCLUSION: 1. There is a new left subclavian line. Based on its course, it could be arterial and please confirm this is not the case clinically. 2. No pneumothorax. 3. Mild basilar consolidation and small left pleural effusion not significantly changed. Electronically signed by: Christoph Baer MD 09/27/2017 3:43 AM EDT
[2017-09-27] MEDS ORDERED: VANCOMYCIN INJ 1,000 MG in SODIUM CHLOR 0.9% 250 ML INJ 250 ML IV STA (03:57)
[2017-09-27] MEDS ORDERED: PIPERACIL-TAZO 4.5 GM PREMIX 100 ML IV STA (03:57)
[2017-09-27] MEDS ORDERED: diphenhydrAMINE HCL 25 MG CAP PO PRN (04:30)
[2017-09-27] MEDS ORDERED: SODIUM CHLOR 0.9% 1000 ML INJ 100 ML IV ONE (04:32)
[2017-09-27] MEDS ORDERED: SODIUM CHLORIDE 0.9% FLUSH 10 ML FLUSH IV FLUSH PRN ×2 (04:45)
[2017-09-27] MEDS ORDERED: Vancomycin Consult Pharmacy 1 EA OTHER SCH (04:45)
[2017-09-27] MEDS ORDERED: ONDANSETRON ODT 4 MG TAB PO PRN (04:45)
[2017-09-27] MEDS ORDERED: NURSING INFORMATION XX SCH (04:45)
[2017-09-27] MEDS ORDERED: LACTULOSE SYRUP 20 GM/30 ML CUP PO PRN (04:45)
[2017-09-27] MEDS ORDERED: RESP: ALBUTEROL 2.5 MG/IPRATROPIUM 0.5 MG NEB (PRN) INH (04:45)
[2017-09-27] MEDS ORDERED: CHLORHEXIDINE GLUCONATE 2 % 1 PACK (2 CLOTHS) TOP PRN (04:45)
[2017-09-27] MEDS ORDERED: PROPOFOL 1000 MG/100 ML INJ 100 ML IV PRN (04:45)
[2017-09-27] MEDS ORDERED: BISACODYL 10 MG SUPP RECTAL PRN (04:45)
[2017-09-27] MEDS ORDERED: MAGNESIUM HYDROXIDE SUSP 30 ML CUP PO PRN (04:45)
[2017-09-27] MEDS ORDERED: ACETAMINOPHEN 325 MG TAB PO PRN (04:45)
[2017-09-27] MEDS ORDERED: GLUCAGON 1 MG/ML VIAL OTHER PRN (04:45)
[2017-09-27] MEDS ORDERED: SENNOSIDES 8.6 MG TAB PO PRN (04:45)
[2017-09-27] MEDS ORDERED: LORazepam 2 MG/ML VIAL ONE (04:46)
[2017-09-27] MEDS: RESP: ALBUTEROL 2.5 MG/IPRATROPIUM 0.5 MG NEB (SCH) INH ×4 (05:00→20:22)
[2017-09-27] MEDS: LORazepam 2 MG/ML VIAL IV PUSH PRN ×2 (05:04→06:07)
--- NOTE | 2017-09-27 05:16 | HHI.HP ---
[facility] Service Critical Care Medicine Primary Care Physician Mehran Cote MD Admission Diagnosis RESP FAILURE S/P INTUBATION, SEPTIC SHOCK Diagnosis: Travel History International Travel<30 Days: No Contact w/Intl Traveler <30 Da: No Traveled to Known Affected Are: No History of Present Illness 77-year-old gentleman currently a resident at [facility], apparently the patient asked for pain medication and was given a hydrocodone approximately 2 hours prior to admission. 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 911 was called, upon arrival EMS states that he was and respiratory distress with severe work of breathing and the patient required intubation emergently. Per chart documentation used 20 of etomidate of 4 mg of Versed to aid in sedation for the intubation. 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 Colace (Docusate Sodium) 100 Mg Capsule 100 Mg PO BID Ferrous Sulfate 325 Mg (65 Mg Iron) Tablet 325 Mg PO DAILY Atorvastatin (Atorvastatin Calcium) 40 Mg Tab 40 Mg PO HS Bumetanide 1 Mg Tab 1 Mg PO DAILY Duloxetine DR (Duloxetine HCl) 60 Mg Capdr 60 Mg PO DAILY Diphenhydramine (Diphenhydramine HCl) 25 Mg Cap 50 Mg PO Q6H PRN Fenofibrate 50 Mg Cap 100 Mg PO DAILY Lantus Inj (Insulin Glargine) 1,000 Unit/10 Ml Vial 10 Units SQ HS Spiriva Handihaler (Tiotropium Inh) 18 Mcg Cap 18 Mcg INH DAILY 1 capsule = 18 mcg Symbicort Inh (Budesonide/Formoterol Fumarate) 160-4.5 Mcg/Act Aero 2 Puff INH BID Proventil Hfa 6.7 GM Inh (Albuterol Sulfate) 90 Mcg/Act Aer 2 Puff INH QID Aspirin Children's (Aspirin) 81 Mg Chew 81 Mg CHEW DAILY Albuterol Neb (Albuterol Sulfate) 2.5 Mg/3 Ml Neb 2.5 Mg NEB Q6HR PRN Active Ordered Medications Current Medications Medications (Trade) Dose Ordered Sig/Mitchell Route PRN Reason Start Time Stop Time Status Last Admin Dose Admin Phenylephrine HCl 40 mg/Dextrose 500 ml @ 30 mls/hr TITRATE PRN IV Blood pressure management 09/27/17 03:15 09/27/17 03:29 Terbutaline Sulfate (Brethine Inj) 1 mg UNSCH PRN SQ For Extravasation 09/27/17 03:15 Aspirin (Aspirin Chew) 81 mg DAILY CHEW 09/27/17 09:00 Atorvastatin Calcium (Lipitor) 40 mg HS PO 09/27/17 21:00 Budesonide/ Formoterol Fumarate (Symbicort 160-4.5 Mcg Inh) 2 puff BID INH 09/27/17 09:00 Diphenhydramine HCl (Benadryl) 50 mg Q6H PRN PO ALLERGIES 09/27/17 04:30 Duloxetine HCl (Cymbalta Dr) 60 mg DAILY PO 09/27/17 09:00 Ferrous Sulfate (Ferrous Sulfate) 325 mg DAILY PO 09/27/17 09:00 Tiotropium Archer (Spiriva Inh) 18 mcg DAILY INH 09/27/17 09:00 Fenofibrate (Tricor) 96 mg DAILY PO 09/27/17 09:00 Acetaminophen (Tylenol) 650 mg Q6H PRN PO PAIN 1-10 AND/OR FEVER >101F 09/27/17 04:45 Famotidine (Pepcid Inj) 20 mg Q12HR IV PUSH 09/27/17 09:00 Lorazepam (Ativan Inj) 1 mg Q1H PRN IV PUSH Agitation/Sedation 09/27/17 04:45 09/27/17 05:04 Ondansetron HCl (Zofran Odt) 4 mg Q6H PRN PO NAUSEA OR VOMITING 09/27/17 04:45 Albuterol/ Ipratropium (Duoneb Neb) 1 ampule Q6HR NEB INH 09/27/17 04:45 09/27/17 05:00 Albuterol/ Ipratropium (Duoneb Neb) 1 ampule Q2HR NEB PRN INH WHEEZING 09/27/17 04:45 Heparin Sodium (Porcine) (Heparin Inj) 5,000 units Q8H SQ 09/27/17 06:00 Miscellaneous Information ([facility] Nursing Information) 1 [id number] XX 09/27/17 04:45 Chlorhexidine Gluconate (Chlorhexidine 2% Cloth) 3 pack Taper DAILY@04 TOP 09/28/17 04:00 09/24/18 03:59 Chlorhexidine Gluconate (Chlorhexidine 2% Cloth) 3 pack UNSCH PRN TOP HYGIENIC CARE 09/27/17 04:45 Senna/Docusate Sodium (Debbie-Colace) 1 tab BID PO 09/27/17 09:00 Magnesium Hydroxide (Milk Of Magnesia Liq) 30 ml Q12H PRN PO Mild constipation 09/27/17 04:45 Sennosides (Senokot) 17.2 mg Q12H PRN PO Moderate constipation 09/27/17 04:45 Bisacodyl (Dulcolax Supp) 10 mg DAILY PRN RECTAL SEVERE CONSITIPATION 09/27/17 04:45 Lactulose (Lactulose Liq) 30 ml DAILY PRN PO SEVERE CONSITIPATION 09/27/17 04:45 Chlorhexidine Gluconate (Peridex 0.12% Liq) 15 ml BID@08,20 MT 09/27/17 08:00 Propofol 100 ml @ 2.22 mls/hr TITRATE PRN IV SEDATION 09/27/17 04:45 Sodium Chloride (NS Flush) 2 ml UNSCH PRN IV FLUSH FLUSH AFTER USING IV ACCESS 09/27/17 04:45 Sodium Chloride (NS Flush) 2 ml BID IV FLUSH 09/27/17 09:00 Pharmacy Profile Note 0 ml @ 0 mls/hr UNSCH OTHER 09/27/17 04:45 Piperacillin Sod/ Tazobactam Sod 100 ml @ 200 mls/hr Q6H IV 09/27/17 10:00 Sodium Chloride 1,000 ml @ 1,000 mls/hr Q1H ONCE IV 09/27/17 04:32 09/27/17 05:31 Sodium Chloride 1,000 ml @ 1,000 mls/hr Q1H ONCE IV 09/27/17 04:32 09/27/17 05:31 Dextrose (D50w (Vial) Inj) 50 ml UNSCH PRN IV PUSH HYPOGLYCEMIA-SEE COMMENTS 09/27/17 04:45 Glucagon (Glucagon Inj) 1 mg UNSCH PRN OTHER HYPOGLYCEMIA-SEE COMMENTS 09/27/17 04:45 Insulin Human Regular (NovoLIN R SUPPLEMENTAL SCALE) 1 ACHS SLIDING SCALE SQ 09/27/17 08:00 Family History No family history significant of coronary artery disease Social History Quit smoking and drinking years ago. Physical Exam Vital Signs Vital Signs Date Time Temp Pulse Resp B/P (MAP) Pulse Ox O2 Delivery O2 Flow Rate FiO2 09/27/17 04:45 100 50 09/27/17 03:47 81 16 106/55 (72) 09/27/17 03:46 97.8 09/27/17 03:42 81 19 104/52 (69) 98 Venturi Mask 09/27/17 03:38 82 16 88/50 (63) Venturi Mask 09/27/17 03:29 87 75/46 09/27/17 02:33 86 19 95/54 (68) 09/27/17 02:31 87 19 94/54 (67) Venturi Mask 09/27/17 02:20 88 16 76/56 (63) 94 Ventilator 09/27/17 02:01 88 16 108/54 (72) 09/27/17 01:32 100 Ventilator 09/27/17 01:32 94 16 86/51 (63) 09/27/17 01:17 91 15 86/51 (63) 94 09/27/17 01:15 98 100 Physical Exam GENERAL: Patient sedated and intubated intubated SKIN: Warm and dry. HEAD: Atraumatic. Normocephalic. EYES: Pupils equal and round. No scleral icterus. No injection or drainage. ENT: No nasal bleeding or discharge. Mucous membranes pink and moist. NECK: Trachea midline. No JVD. CARDIOVASCULAR: Regular rate and rhythm. RESPIRATORY: No accessory muscle use. Clear to auscultation. Breath sounds equal bilaterally. GASTROINTESTINAL: Abdomen soft, non-tender, nondistended. Hepatic and splenic margins not palpable. MUSCULOSKELETAL: Extremities without clubbing, cyanosis, or edema. No obvious deformities. NEUROLOGICAL: Initial GCS of 3T, still 100 and effects of the etomidate and 4 mg of benzodiazepine that was used prior to arrival to aid intubation Laboratory Laboratory Tests Test 09/27/17 01:35 09/27/17 02:35 09/27/17 04:28 White Blood Count 8.2 Red Blood Count 3.00 Hemoglobin 8.0 Hematocrit 26.4 Mean Corpuscular Volume 87.9 Mean Corpuscular Hemoglobin 26.7 Mean Corpuscular Hemoglobin Concent 30.4 Red Cell Distribution Width 26.8 Platelet Count 99 Mean Platelet Volume 11.2 Neutrophils (%) (Auto) 56.6 Lymphocytes (%) (Auto) 31.4 Monocytes (%) (Auto) 9.6 Eosinophils (%) (Auto) 1.4 Basophils (%) (Auto) 1.0 Neutrophils # (Auto) 4.6 Lymphocytes # (Auto) 2.6 Monocytes # (Auto) 0.8 Eosinophils # (Auto) 0.1 Basophils # (Auto) 0.1 CBC Comment AUTO DIFF Differential Comment AUTO DIFF CONFIRMED Platelet Estimate LOW Platelet Morphology Comment NORMAL Polychromasia 3.3 Target Cells 1+ Ovalocytes 1+ Acanthocytes OCC Keratocytes OCC Prothrombin Time 14.7 Prothromb Time International Ratio 1.5 Activated Partial Thromboplast Time 27.6 Urine Color YELLOW Urine Turbidity CLEAR Urine pH 5.0 Urine Specific [place] 1.016 Urine Protein NEG Urine Glucose (UA) NEG Urine Ketones NEG Urine Occult Blood NEG Urine Nitrite NEG Urine Bilirubin NEG Urine Urobilinogen LESS THAN 2.0 Urine Leukocyte Esterase NEG Urine RBC 1 Urine WBC 1 Urine Squamous Epithelial Cells 1 Urine Bacteria RARE Urine Hyaline Casts 2 Microscopic Urinalysis Comment CATH-CULTURE IND Blood Urea Nitrogen 49 Creatinine 4.77 Random Glucose 103 Total Protein 4.9 Albumin 1.4 Calcium Level 6.8 Alkaline Phosphatase 68 Aspartate Amino Transf (AST/SGOT) 59 Alanine Aminotransferase (ALT/SGPT) 21 Total Bilirubin 0.8 Sodium Level 143 Potassium Level 4.6 Chloride Level 102 Carbon Dioxide Level 24.7 Anion Gap 16 Estimat Glomerular Filtration Rate 12 Lactic Acid Level 11.3 Protein Corrected Calcium 7.9 Total Creatine Kinase 86 Troponin I LESS THAN 0.02 Lipase 69 Blood Gas Puncture Site RT RADIAL Blood Gas Patient Temperature 98.6 Blood Gas HCO3 25 Blood Gas Base Excess -1.3 Blood Gas Oxygen Saturation 98 Arterial Blood pH 7.27 Arterial Blood Partial Pressure CO2 55 Arterial Blood Partial Pressure O2 289 Arterial Blood Oxygen Content 10.8 Arterial Blood Carboxyhemoglobin 0.9 Arterial Blood Methemoglobin 1.0 Blood Gas Hemoglobin 7.3 Oxygen Delivery Device VENTILATOR Blood Gas Ventilator Setting Blood Gas Inspired Oxygen 100 Date/Time Source Procedure Growth Status 09/27/17 01:40 Blood Peripheral Aerobic Blood Culture Pending Received 09/27/17 01:40 Blood Peripheral Anaerobic Blood Culture Pending Received 09/27/17 01:35 Urine Catheterized Urine Urine Culture Pending Received Result Diagram: 09/27/1713409/27/17134 Imaging Last 24 hours Impressions Chest X-Ray 09/27/179 Signed Impressions: CONCLUSION: 1. There is a new left subclavian line. Based on its course, it could be arter ial and please confirm this is not the case clinically. 2. No pneumothorax. 3. Mild basilar consolidation and small left pleural effusion not significantl y changed. Chest X-Ray 09/27/17127 Signed Impressions: CONCLUSION: 1. Mild bibasilar consolidation and small left pleural effusion. 2. Appropriate endotracheal tube tip position. Septic Shock Reassessment Septic shock perfusion: reassessment completed Caprini VTE Risk Assessment Caprini VTE Risk Assessment: Mod/High Risk (score >= 2) Caprini Risk Assessment Model Point Value = 1 Point Value = 2 Point Value = 3 Point Value = 5 Age 41-60 Minor surgery BMI > 25 kg/m2 Swollen legs Varicose veins or History of unexplained or recurrent spontaneous Oral contraceptives or hormone replacement Sepsis (< 1 month) Serious lung disease, including pneumonia (< 1 month) Abnormal pulmonary function Acute myocardial infarction Congestive heart failure (< 1 month) History of inflammatory bowel disease Medical patient at bed rest Age 61-74 Arthroscopic surgery Major open surgery (> 45 min) Laparoscopic surgery (> 45 min) Malignancy Confined to bed (> 72 hours) Immobilizing plaster cast Central venous access Age >= 75 History of VTE Family history of VTE Factor V Leiden Prothrombin [id number] Lupus anticoagulant Anticardiolipin antibodies Elevated serum homocysteine Heparin-induced thrombocytopenia Other congenital or acquired thrombophilia Stroke (< 1 month) Elective arthroplasty Hip, pelvis, or leg fracture Acute spinal cord injury (< 1 month) Prophylaxis Regimen Total Risk Factor Score Risk Level Prophylaxis Regimen 0-1 Low Early ambulation 2 Moderate Order ONE of the following: *Sequential Compression Device (SCD) *Heparin 5000 units SQ BID 3-4 Higher Order ONE of the following medications: *Heparin 5000 units SQ TID *Enoxaparin/Lovenox 40 mg SQ daily (WT < 150 kg, CrCl > 30 mL/min) *Enoxaparin/Lovenox 30 mg SQ daily (WT < 150 kg, CrCl > 10-29 mL/min) *Enoxaparin/Lovenox 30 mg SQ BID (WT < 150 kg, CrCl > 30 mL/min) AND/OR *Sequential Compression Device (SCD) 5 or more Highest Order ONE of the following medications: *Heparin 5000 units SQ TID (Preferred with Epidurals) *Enoxaparin/Lovenox 40 mg SQ daily (WT < 150 kg, CrCl > 30 mL/min) *Enoxaparin/Lovenox 30 mg SQ daily (WT < 150 kg, CrCl > 10-29 mL/min) *Enoxaparin/Lovenox 30 mg SQ BID (WT < 150 kg, CrCl > 30 mL/min) AND *Sequential Compression Device (SCD) Assessment and Plan Assessment and Plan Respiratory failure -Intubated for airway protection -No weaning until neurologically improve -DuoNeb scheduled and as needed -Vent bundle -Broad-spectrum empiric antibiotics Sepsis -Unclear source of infection -Broad-spectrum antibiotic -Panculture -De-escalate antibiotics per sensitivity and culture results -Central line placed by ED attending -Donald-Synephrine to keep MAP> 65 Altered mental status -Toxic metabolic due to above -CT head pending Anemia -Iron supplement -Monitor H&H and transfuse for hemoglobin less than 7 Diabetes mellitus -Glucerna tube feeds -Insulin sliding scale -Resume Lantus insulin when indicated Coronary artery disease -Rule out acute coronary syndrome -Series of troponins and EKGs -Aspirin for now DVT GI prophylaxis -Ed's and SCDs -Subcu heparin -Pepcid Critical Care: The total critical care time was 35 minutes. Time to perform other separately billable procedures was not included in the critical care time. Devin Prince MD September 27, 2017 05:16
--- NOTE | 2017-09-27 05:50 | RADRPT ---
EXAM DATE: 09/27/2017 5:45 AM EDT AGE/SEX: 77 years / Male INDICATIONS: Altered mental status. CLINICAL DATA: This is the patient's initial encounter. Patient reports that signs and symptoms have been present for 1 day and indicates a pain score of Nonresponsive. MEDICAL/SURGICAL HISTORY: Cardiovascular disease. Hypertension. Chronic obstructive pulmonary dis ease. Diabetes GERD Bladder cancer Coronary artery stent. RADIATION DOSE: 56.35 CTDI (mGy) COMPARISON: No prior [facility] exams available for comparison. TECHNIQUE: CT of the head without contrast. Using automated exposure control and adjustment of the mA and/or kV according to patient size, radiation dose was kept as low as reasonably achievable to ob tain optimal diagnostic quality images. FINDINGS: Cerebrum: The ventricles are normal for age. No evidence of midline shift, mass lesion, hemorrhage or acute infarction. No extraaxial fluid collections are seen. Posterior Fossa: The cerebellum and brainstem are intact. The 4th ventricle is midline. The cerebe llopontine angle is unremarkable. Extracranial: The visualized portion of the orbits is intact. Skull: The calvaria is intact. No evidence of skull fracture. CONCLUSION: No acute intracranial abnormality demonstrated. Electronically signed by: Christoph Baer MD 09/27/2017 5:49 AM EDT
[2017-09-27] MEDS: HEPARIN SODIUM - SQ 10,000 UNITS/ML VIAL SQ SCH ×3 (06:53→21:46)
[2017-09-27] MEDS: INSULIN NovoLIN REGULAR SUPPLEMENTAL SCALE SQ SCH ×4 (08:00→20:39)
[2017-09-27] MEDS: CHLORHEXIDINE 0.12% (ORAL KIT) 15 ML CUP MT SCH ×2 (08:00→20:37)
[2017-09-27 08:04] LABS: LACTIC ACID SEPSIS PROTOCOL 3.5 mmol/L (0.4-2.0)
--- NOTE | 2017-09-27 08:34 | HHI.CCPN ---
Subjective Remarks/Hospital Course 77-year-old gentleman currently a resident at [facility], apparently the patient asked for pain medication and was given a hydrocodone approximately 2 hours prior to admission. 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 911 was called, upon arrival EMS states that he was and respiratory distress with severe work of breathing and the patient required intubation emergently. Per chart documentation used 20 of etomidate of 4 mg of Versed to aid in sedation for the intubation. Subjective: 09/27:746, discussed with radiologist placement of left subclavian line by emergency room department. Dr. Hendricks, discussed possibility of arterial placement of left subclavian line. ABGs obtained from subclavian line-noted venous PaO2 39. Left radial arterial line, placed PaO2 59. Patient continues on phenylephrine currently at 150 mcgs. Objective Vital Signs Date Time Temp Pulse Resp B/P (MAP) Pulse Ox O2 Delivery O2 Flow Rate FiO2 09/27/17 07:30 92 40 09/27/17 06:08 09/27/17 06:00 87 09/27/17 06:00 97.8 20 09/27/17 03:42 Venturi Mask Result Diagram: 09/27/17 0135 09/27/17 0135 Other Results Laboratory Tests Test 09/27/17 02:35 09/27/17 07:55 09/27/17 08:00 Blood Gas Puncture Site RT RADIAL Blood Gas Patient Temperature 98.6 Blood Gas HCO3 25 mmol/L (22-26) Blood Gas Base Excess -1.3 mmol/L (-2-2) Blood Gas Oxygen Saturation 98 % (90-100) Arterial Blood pH 7.27 (7.380-7.420) Arterial Blood Partial Pressure CO2 55 mmHg (38-42) Arterial Blood Partial Pressure O2 289 mmHG (61-120) Arterial Blood Oxygen Content 10.8 Vol % (12.0-20.0) Arterial Blood Carboxyhemoglobin 0.9 % (0-4) Arterial Blood Methemoglobin 1.0 % (0-2) Blood Gas Hemoglobin 7.3 G/DL (12.0-16.0) Oxygen Delivery Device VENTILATOR Blood Gas Ventilator Setting Blood Gas Inspired Oxygen 100 % Imaging Last 24 hours Impressions Chest X-Ray 09/27/17 0259 Signed Impressions: CONCLUSION: 1. There is a new left subclavian line. Based on its course, it could be arter ial and please confirm this is not the case clinically. 2. No pneumothorax. 3. Mild basilar consolidation and small left pleural effusion not significantl y changed. Chest X-Ray 09/27/17 0128 Signed Impressions: CONCLUSION: 1. Mild bibasilar consolidation and small left pleural effusion. 2. Appropriate endotracheal tube tip position. Objective Remarks GENERAL: Patient intubated currently on no sedation, spontaneous eye opening SKIN: Warm and dry. HEAD: Atraumatic. Normocephalic. EYES: Pupils equal and round. No scleral icterus. No injection or drainage. ENT: No nasal bleeding or discharge. Mucous membranes pink and moist. NECK: Trachea midline. No JVD. CARDIOVASCULAR: Regular rate and rhythm. RESPIRATORY: No accessory muscle use. Clear to auscultation. Breath sounds equal bilaterally. GASTROINTESTINAL: Abdomen soft, non-tender, nondistended. Hepatic and splenic margins not palpable. MUSCULOSKELETAL: Extremities without clubbing, cyanosis, or edema. No obvious deformities. NEUROLOGICAL: GCS 3 T. spontaneous eye opening and spontaneous movement of extremities 4 Urinary Catheter: Yes Darby insert reason: Measure Accurate Output Date of Insertion: September 27, 2017 Vascular Central Line Catheter: Yes Date of Insertion: September 27, 2017 Side: Left Location: Subclavian Reason for Continuation Vasopressor support A/P Problem List: (1) Altered mental status, unspecified ICD Code: R41.82 - Altered mental status, unspecified (2) Acute hypoxemic respiratory failure ICD Code: J96.01 - Acute respiratory failure with hypoxia (3) Sepsis ICD Code: A41.9 - Sepsis, unspecified organism Status: Resolved Assessment and Plan Plan by systems: Neurologic: Acute metabolic encephalopathy 09/27 CT head Neurochecks per ICU protocol Daily sedation vacation Fentanyl infusion for ventilator synchrony, discontinue propofol Respiratory: Acute hypoxemic and hypercarbic respiratory failure COPD -09/27 intubated for airway protection -No weaning until neurologically improve -DuoNeb scheduled and as needed -Obtain ABG subclavian line-7.26/54/39/23/-2.2 -Obtain ABG left radial-7.2 9/48/59/22/-2.8-increased respiratory rate -Mechanical ventilation / -No CPAP trials until hemodynamically stable -Vent bundle -Broad-spectrum empiric antibiotics Cardiovascular: Septic shock Coronary artery disease Ischemic cardiomyopathy -Rule out acute coronary syndrome -Series of troponins and EKGs -Echo 06/2016-EF 30-35%, Mild TR -Aspirin for now -Patient currently on 150 mics phenylephrine infusion MAP noted less than 60, norepinephrine and vasopressin infusion added -Maintain MAP greater than 65 -Add hydrocortisone 50 mg every 6 hours -Obtain BNP -Obtain ECHO Renal: Acute kidney injury -Maintain Darby -- Strict I/Os FEN/GI: Moderate protein calorie malnutrition Electrolyte derangement -Patient received 3 L normal saline in the ED -Normal saline initiated 42 cc/hr -Maintain NPO status for now -Calcium gluconate 2 g IV now Heme/ID: Lactic acidemia Anemia -Obtain blood , urine and sputum culture -Monitor lactate level, until cleared -Type and screen -Iron supplementation -Transfuse for hemoglobin less than 8 -Continue broad-spectrum empiric antibiotics -Unclear source of infection -Panculture 09/27 -De-escalate antibiotics per sensitivity and culture Endocrine: Diabetes mellitus -Initiate Glucerna tube feeds when hemodynamically stable -Insulin sliding scale -Resume Lantus insulin when indicated Glucose monitoring per ICU protocol, low-dose regimen -- SSI Prophylaxis: GI Prophylaxis Famotidine BID DVT Prophylaxis -- SCDs Heparin SQ Lines: Peripheral IVs 2. Left subclavian line placed in the ED by attending 09/27 Dispo: Multiple attempts to contact [facility] regarding patient's goals of care and information unsuccessful. I telephoned Ronda Quevedo, patient's daughter who lives in [place] requested patient have alternate CODE STATUS DNR no shocks no escalation of care no CPR. Telephone conversation confirmed with Mono Rooney charge nurse. Patient was september alternate CODE STATUS. Palliative care was consulted, confirmation of healthcare surrogacy/proxy. my billing statement This patient remains critically ill with one or more organ systems which are or may become a threat to life. I have spent in excess of 49 minutes discontinuously in the care and management of this patient. This time is exclusive of procedures, and includes, but is not limited to, evaluation of the patient, review of the medical record, discussions with family, consultants, nursing staff, or respiratory therapy, and documentation in the medical record. Physician Heather Henley MD September 27, 2017 08:34
[2017-09-27] MEDS ORDERED: SODIUM CHLOR 0.9% 1000 ML INJ 1,000 ML IV SCH ×2 (08:45→14:00)
[2017-09-27] MEDS: ASPIRIN 81 MG CHEW TAB CHEW SCH (09:00)
[2017-09-27] MEDS ORDERED: FAMOTIDINE 20 MG/2 ML VIAL IV PUSH SCH (09:00)
[2017-09-27] MEDS ORDERED: METOPROLOL TARTRATE 50 MG TAB PO SCH (09:00)
[2017-09-27] MEDS: SODIUM CHLORIDE 0.9% FLUSH 10 ML FLUSH IV FLUSH SCH ×2 (09:00→20:36)
[2017-09-27] MEDS ORDERED: SODIUM CHLORIDE 0.9% FLUSH 10 ML FLUSH IV FLUSH SCH (09:00)
[2017-09-27] MEDS: FENOFIBRATE 48 MG TAB PO SCH (09:00)
[2017-09-27] MEDS: TIOTROPIUM BROMIDE 18 MCG INH INH SCH (09:00)
[2017-09-27] MEDS: BUDESONIDE-FORMOTEROL 160/4.5 MCG INHALER INH SCH ×2 (09:00→20:36)
[2017-09-27] MEDS ORDERED: CALCIUM GLUCONATE INJ 2 GM in DEXTROSE 5% IN WATER 100ML INJ 100 ML IV ONE ×2 (09:00)
[2017-09-27] MEDS: FAMOTIDINE 20 MG/2 ML VIAL IV PUSH SCH ×2 (09:27→20:35)
[2017-09-27] MEDS: DULoxetine HCl DR 60 MG CAP PO SCH (09:30)
[2017-09-27] MEDS: FERROUS SULFATE 325 MG (65 MG ELEMENTAL IRON) TAB PO SCH (09:30)
[2017-09-27] MEDS: PIPERACIL-TAZO 4.5 GM PREMIX 100 ML IV SCH ×3 (09:32→21:46)
[2017-09-27] MEDS: DOCUSATE SODIUM 50 MG/SENNA 8.6 MG TAB PO SCH ×2 (09:32→20:35)
[2017-09-27] MEDS: NOREPINEPHRINE-DEXTROSE DRIP 250 ML IV PRN ×2 (09:34→17:32)
[2017-09-27] MEDS: fentaNYL DRIP 250 ML IV PRN (09:34)
[2017-09-27] MEDS ORDERED: HYDROCORTISONE SOD SUCCINATE 100 MG VIAL ONE (09:35)
[2017-09-27] MEDS: VASOPRESSIN INJ 40 UNITS in DEXTROSE 5% IN WATER 100ML INJ 98 ML IV SCH ×2 (09:36)
[2017-09-27] MEDS: HYDROCORTISONE SOD SUCCINATE 100 MG VIAL IV PUSH SCH ×3 (09:36→23:42)
[2017-09-27 09:37] LABS: CREATININE, RANDOM URINE 235.9 MG/DL
--- NOTE | 2017-09-27 13:25 | OTSOAPIP ---
TIME SESSION COMPLETED: 1355 TREATMENT TIME: 0 MINS. CHART REVIEWED. RECEIVED ORDER FOR OCCUPATIONAL THERAPY BY DR. MARTÍNEZ. PATIENT UNSTABLE AND NURSE ASKED TO DEFER. Therapist: WENDI COOK OT/L Signature on file
--- NOTE | 2017-09-27 13:55 | EKG ---
Date Performed: 09/27/2017 Time Performed: 03:13:38 PTAGE: 77 years EKG: Sinus rhythm NONSPECIFIC T-WAVE ABNORMALITY BORDERLINE ECG Compared to PREVIOUS TRACING , heart rate is slower, T-waves more flattened. PVCs no longer present. PREVIOUS TRACIN06/05/2016 13.22 DOCTOR: Emmanuel Orellana Interpretating Date/Time 09/27/2017 13:53:47
--- NOTE | 2017-09-27 13:55 | EKG ---
Date Performed: 09/27/2017 Time Performed: 10:23:07 PTAGE: 77 years EKG: Sinus rhythm WITH FREQUENT ECTOPIC PREMATURE COMPLEXES MODERATE INTRAVENTRICULAR CONDUCTION DELAY NONSPECIFIC T-W AVE ABNORMALITY ABNORMAL ECG Compared to PREVIOUS TRACING , PVCs are now present, otherwise no signficant change. PREVIOUS TRACING : 09/27/2017 03.13 DOCTOR: Emmanuel Orellana Interpretating Date/Time 09/27/2017 13:54:44
[2017-09-27 15:19] LABS: HEMOGLOBIN 9.3 GM/DL (13.0-17.0)
--- NOTE | 2017-09-27 17:59 | ECHRPT ---
Indication: CARDIOMYOPATHY CONCLUSIONS The left ventricle is not well visualized. The left ventricular systolic function is grossly normal on limited imaging. The left ventricular systolic function is low normal with an estimated ejection fraction in the rang e of 50- 55%. This study was not technically sufficient to allow for evaluation of left ventricular diastolic func tion. The aortic root and proximal ascending aorta are not well visualized. Trace mitral valve regurgitation. BP: / HR: Rhythm: Sinus MEASUREMENTS (Male / Female) Normal Values Technical Quality:Very technically difficult study 2D ECHO LVOT Diameter 1.9 cm DOPPLER AV Peak Velocity 110.0 cm/s AV Peak Gradient 4.8 mmHg LVOT Peak Velocity 87.4 cm/s LVOT Peak Gradient 3.1 mmHg AV Area Cont Eq pk 2.3 cm MV Area PHT 3.9 cm Mitral E Point Velocity 33.1 cm/s Mitral A Point Velocity 79.5 cm/s Mitral E to A Ratio 0.4 LV E' Lateral Velocity 3.3 cm/s Mitral E to LV E' Lateral Ratio 10.0 LV E' Septal Velocity 4.5 cm/s Mitral E to LV E' Septal Ratio 7.4 FINDINGS LEFT VENTRICLE The left ventricle is not well visualized. The left ventricular systolic function is grossly normal on limited imaging. The left ventricular systolic function is low normal with an estimated ejection fraction in the rang e of 50- 55%. This study was not technically sufficient to allow for evaluation of left ventricular diastolic func tion. LEFT ATRIUM The left atrial size is normal. RIGHT ATRIUM The right atrial size is normal. AORTA The aortic root and proximal ascending aorta are not well visualized. The aortic root and proximal ascending aorta are normal in size on limited imaging. MITRAL VALVE Structurally normal mitral valve. Trace mitral valve regurgitation. Nikunj Kang MD, FACC (Electronically Signed) Final Date:27 Sep 2017 17:58
[2017-09-27 18:43] LABS: TROPONIN I 0.02 NG/ML (0.02-0.05)
[2017-09-27] MEDS: ATORVASTATIN 40 MG TAB PO SCH (20:36)
[2017-09-28] VITALS (17 sets, daily range): BP systolic 93–141; BP diastolic 55–78; PULSE 78–102; RESP 20–29; TEMP 97.5–98.3; O2SAT 68–100
[2017-09-28] MEDS: VASOPRESSIN INJ 40 UNITS in DEXTROSE 5% IN WATER 100ML INJ 98 ML IV SCH ×4 (00:35→19:07)
[2017-09-28] MEDS: CHLORHEXIDINE GLUCONATE 2 % 1 PACK (2 CLOTHS) TOP SCH (03:21)
[2017-09-28] MEDS: PIPERACIL-TAZO 4.5 GM PREMIX 100 ML IV SCH ×4 (03:23→22:05)
[2017-09-28] MEDS: RESP: ALBUTEROL 2.5 MG/IPRATROPIUM 0.5 MG NEB (SCH) INH ×4 (03:29→19:55)
[2017-09-28] MEDS: NOREPINEPHRINE-DEXTROSE DRIP 250 ML IV PRN (03:42)
[2017-09-28] MEDS ORDERED: SODIUM CHLOR 0.9% 1000 ML INJ 1,000 ML IV SCH (03:45)
[2017-09-28 04:23] LABS: INTERNATIONAL NORMALIZED RATIO 1.4 RATIO
[2017-09-28 04:46] LABS: ALBUMIN 1.3 GM/DL (3.4-5.0); BICARBONATE 18.8 MEQ/L (21.0-32.0); CALCIUM 6.3 MG/DL (8.5-10.1); CREATININE 5.06 MG/DL (0.60-1.30); MAGNESIUM 2.1 MG/DL (1.5-2.5); PHOSPHORUS 6.6 MG/DL (2.5-4.9); RANDOM VANCOMYCIN 10.4 COMMENT; TOTAL BILIRUBIN ADULT 0.9 MG/DL (0.2-1.0); TOTAL PROTEIN 4.8 GM/DL (6.4-8.2)
[2017-09-28 04:51] LABS: CALCIUM-PROTEIN CORRECTED 7.4 MG/DL (8.5-10.1)
[2017-09-28 04:55] LABS: AUTOMATED NEUTROPHIL # 16.8 TH/MM3 (1.8-7.7); BASOPHIL # 0.1 TH/MM3 (0-0.2); BASOPHIL % 0.4 % (0.0-2.0); HEMATOCRIT 27.7 % (39.0-51.0); HEMOGLOBIN 8.7 GM/DL (13.0-17.0); LYMPH % 5.7 % (9.0-44.0); LYMPHOCYTE # 1.1 TH/MM3 (1.0-4.8); MEAN CELL VOLUME 87.7 FL (80.0-100.0); MEAN CORPUSCULAR HEMOGLOBIN 27.5 PG (27.0-34.0); MEAN CORPUSCULAR HGB CONC 31.3 % (32.0-36.0); MEAN PLATELET VOLUME 11.3 FL (7.0-11.0); MONO % 4.1 % (0.0-8.0); MONOCYTE # 0.8 TH/MM3 (0-0.9); NEUT % 89.8 % (16.0-70.0); PLATELET COUNT 69 TH/MM3 (150-450); RED BLOOD COUNT 3.16 MIL/MM3 (4.50-5.90); RED CELL DISTRIBUTION WIDTH 24.3 % (11.6-17.2); WHITE BLOOD COUNT 18.7 TH/MM3 (4.0-11.0)
[2017-09-28] MEDS: HYDROCORTISONE SOD SUCCINATE 100 MG VIAL IV PUSH SCH ×3 (05:33→17:51)
[2017-09-28] MEDS: HEPARIN SODIUM - SQ 10,000 UNITS/ML VIAL SQ SCH ×3 (05:34→22:00)
--- NOTE | 2017-09-28 06:22 | RADRPT ---
EXAM DATE: 09/28/2017 6:14 AM EDT AGE/SEX: 77 years / Male INDICATIONS: Shortness of breath, possible pulmonary disease. CLINICAL DATA: This is the patient's subsequent encounter. Patient reports that signs and symptoms h ave been present for 2 days and indicates a pain score of Nonresponsive. MEDICAL/SURGICAL HISTORY: Hypertension. Chronic obstructive pulmonary disease. Aneurysm, abdo prateek. [place] GERD Kidney disease. Coronary artery stent. COMPARISON: [facility] [place], CHEST SINGLE AP, 09/27/2017. . FINDINGS: Slight bilateral lung base atelectasis and/or infiltrate is seen. There is also mild pro minence of the interstitial markings may represent pulmonary edema. Lines and tubes have not changed. CONCLUSION: Probable mild pulmonary edema and slight bibasilar atelectasis and/or infiltrate worse on the left. Electronically signed by: Chema Franco MD 09/28/2017 6:21 AM EDT
[2017-09-28] MEDS: PHENYLEPHRINE INJ 40 MG in DEXTROSE 5% IN WATE 500 ML INJ 496 ML IV PRN ×2 (06:27)
[2017-09-28 07:16] LABS: BANDS 34 % (0-6); CORRECTED NUCLEATED RBC 4 /100 WBC (0-0); LYMPHOCYTES 4 % (9-44); MONOCYTES 2 % (0-8); NEUTROPHIL # MANUAL DIFF 17.6 TH/MM3 (1.8-7.7); NUCLEATED RED BLOOD CELL 4 (0-0); POLYS (SEG NEUTROPHILS) 60 % (16-70)
[2017-09-28 07:29] LABS: ACANTHOCYTES OCC (NORMAL); KERATOCYTES OCC (NORMAL); OVALOCYTES 1+ (NORMAL)
[2017-09-28] MEDS: DULoxetine HCl DR 60 MG CAP PO SCH (08:18)
[2017-09-28] MEDS: FAMOTIDINE 20 MG/2 ML VIAL IV PUSH SCH ×2 (08:19→20:55)
[2017-09-28] MEDS: FENOFIBRATE 48 MG TAB PO SCH (08:19)
[2017-09-28] MEDS: INSULIN NovoLIN REGULAR SUPPLEMENTAL SCALE SQ SCH ×3 (08:21→17:00)
[2017-09-28] MEDS: SODIUM CHLORIDE 0.9% FLUSH 10 ML FLUSH IV FLUSH SCH ×2 (08:21→20:54)
[2017-09-28] MEDS: CHLORHEXIDINE 0.12% (ORAL KIT) 15 ML CUP MT SCH ×2 (08:21→20:54)
[2017-09-28] MEDS: FERROUS SULFATE 325 MG (65 MG ELEMENTAL IRON) TAB PO SCH (08:22)
[2017-09-28] MEDS: DOCUSATE SODIUM 50 MG/SENNA 8.6 MG TAB PO SCH ×2 (08:22→20:54)
[2017-09-28] MEDS: BUDESONIDE-FORMOTEROL 160/4.5 MCG INHALER INH SCH ×2 (09:00→21:00)
[2017-09-28] MEDS: TIOTROPIUM BROMIDE 18 MCG INH INH SCH (09:00)
[2017-09-28] MEDS: ASPIRIN 81 MG CHEW TAB CHEW SCH (09:00)
--- NOTE | 2017-09-28 10:59 | PD.CONS ---
Consult Service Palliative Care Consult Requested By Dr. Escobedo . Primary Care Physician Mehran Cote MD Reason for Consultation a. To assist with evaluation and management of symptoms including:Shortness of breath, pain, debility b. To assist medical decision maker(s) with: better understanding of current medical conditions; weighing benefits/burdens of medical treatment options; making medical treatment decisions. HPI History of Present Illness Mr. Garcia is a 77 years old male with a past medical history of coronary artery disease s/p cardiac stent placement, paroxysmal atrial fibrillation, MS, PVD, COPD with chronic bronchitis on home oxygen, hypertension, chronic kidney disease, depression, diabetes mellitus, GERD, C. difficile, MRSA and bladder cancer. Patient was brought to the ER on 09/27/17 from [facility] via EMS for further evaluation of unresponsiveness and respiratory distress. Patient was emergently intubated by EMS due to severe work of breathing. Patient had complained of pain 2 hours prior to admission and was given Hydrocodone. He then requested to use the bathroom. When BATTERY PARTS ASSEMBLER went to check on him he was found slumped over and unresponsive on the toilet. Patient` last hospitalization was at [facility] in August, and he was evaluated and treated for acute bronchitis and right elbow olecranon bursitis. ER Course: * Vital signs: Temperature 97.8, pulse 81, respiration 16, blood pressure 106/55 , O2 saturation 98%. * Laboratory workup revealed WBC 8.2, hemoglobin 8.0, hematocrit 26.4, platelet count 99, potassium 4.6, BUN/creatinine 49/4.77, lactic acid 11.3, calcium 8.8, AST 59, ALT 21, troponin less than 0.02, total protein 4.9, albumin 1.4, lipase 69, PT 14.7, INR 1.5 * Chest x-ray revealed mild bibasilar consolidation and small left pleural effusion. * Head CT revealed no acute intracranial abnormality. * UA collected-culture indicated-negative for Legionella pneumophila and Streptococcus pneumoniae * ABG results on vent FiO2 100%-pH 7.4, PCO2 55, PO2 289, HCO3 25, base excess - 1.3 * Patient was started on pressors. * Patient admitted under the care of critical care management for further evaluation and treatment. Critical care management physician spoke to patient's daughter who requested that patient be made an alternate code status DNR, no CPR, no shock, no escalation of care. 2D echo on revealed an estimated ejection fraction in the range of 30-35%. PT and OT consulted. Palliative care consulted to assist with establishing goals of care, confirmation of healthcare surrogate is/proxy and symptom management. Laboratory workup today revealing WBC 18.7, hemoglobin 8.7, hematocrit 27.7, platelet count 69, sodium 137, potassium 4.9, BUN/creatinine 45/5.06-worsening , PCC 7.4, phosphorus 6.6, total protein 4.8, albumin 1.3, PT 14.0, INR 1.4. Chest x-ray today revealing probable mild pulmonary edema and slight bibasilar atelectasis and/or infiltrate worse on the left. Patient seen and examined in [facility]. Patient is intubated and sedated. Withdraws to noxious stimulation with bilateral lower extremities. Current FiO2 40% with O2 saturation in the high 90s. Patient is on fentanyl infusion at 100 mcg/ hr and Vasopressin infusion at 0.04 units/ minute with SBP in the mid to upper 90s on arterial line readings. Per bedside RN Neosynephrine and Levophed infusion were titrated off this morning. Scant urine noted. Call placed to patient`s daughter Ronda Quevedo. Left a voice message. Called patient`s son-in law Zane Quevedo who mentioned that patient has a living will and Ronda is the health care surrogate. According to patient`s son in law, patient has an estranged son, not sure about his name. Palliative care contact information provided. Awaiting call back from patient`s daughter. Placed another call to patient`s daughter. Obtained social history and past medical history. Discussed patient`s trajectory of decline in the past 6 months. Per patient`s daughter, patient completed advanced directives in 2011, DPOA and living will. Ronda Quevedo is the designated DURABLE POWER OF RETAIL SUPERVISOR. She will try to fax the papers tomorrow to palliative care. Addressed code status. Patient's daughter wants patient to be a DNR. Given that patients renal status is worsening she does not want to escalate care. Patient`s daughter mentioned that she has discussed her fathers condition with critical care management and nephrology. She does not want to escalate care and would like to proceed with compassionate withdrawal from life support and stop all aggressive treatment. She mentions that her father has suffered for a long time and she would like to comfort care only through hospice services at time of compassionate withdrawal from life support. Palliative care contact information and fax number provided. . Function/Cognitive Trajectory Patient is a resident at [facility]. Patient's last hospitalization was in June 2016 for sepsis. In June, per medical records, patient resided at [facility] patient required moderate assistance with all his ADLs. Patient was recently admitted at [facility] August 24, 2017 for treatment of acute bronchitis and right elbow olecranon bursitis. . Review of Systems ROS Limitations: Intubated Constitutional: COMPLAINS OF: Pain, Generalized weakness Eyes: DENIES: Eye inflammation Ears, nose, mouth, throat: DENIES: Nasal discharge Respiratory: COMPLAINS OF: Shortness of breath Cardiovascular: COMPLAINS OF: Lower Extremity Edema Integumentary: COMPLAINS OF: Abnormal pigmentation Hematologic/Lymphatics: COMPLAINS OF: Bruising Other ROS: ROS obtained from family, EMR and clinical observation. . Past Family Social History Coded Allergies: Sulfa (Sulfonamide Antibiotics) (Verified Allergy, Severe, Anaphylaxis, ) *MDRO Multi-Drug Resistant Organism (Verified Adverse Reaction, Unknown, ) MRSA (hand)-06/10/16 Past Medical History Coronary artery disease Hypertension Diabetes Chronic obstructive pulmonary disease with chronic bronchitis on home oxygen Bladder cancer Abscess/collection of right hand dorsum Past Surgical History Cardiac stent placement Incision and drainage of mass/collection to the right hand-06/10/2016 Reported Medications Protonix (Pantoprazole Sodium) 20 Mg Tab 20 Mg PO DAILY 30 Days Lopressor (Metoprolol Tartrate) 50 Mg Tab 50 Mg PO Q12HR 30 Days 3-in-1 Bedside Toilet (Device) 1 Mis Mis 1 Ea .ROUTE DIRECTED Novolog Inj (Insulin Aspart) 1,000 Unit/10 Ml Vial 0 SQ DIRECTED Colace (Docusate Sodium) 100 Mg Capsule 100 Mg PO BID Ferrous Sulfate 325 Mg (65 Mg Iron) Tablet 325 Mg PO DAILY Atorvastatin (Atorvastatin Calcium) 40 Mg Tab 40 Mg PO HS Bumetanide 1 Mg Tab 1 Mg PO DAILY Duloxetine DR (Duloxetine HCl) 60 Mg Capdr 60 Mg PO DAILY Diphenhydramine (Diphenhydramine HCl) 25 Mg Cap 50 Mg PO Q6H PRN Fenofibrate 50 Mg Cap 100 Mg PO DAILY Lantus Inj (Insulin Glargine) 1,000 Unit/10 Ml Vial 10 Units SQ HS Spiriva Handihaler (Tiotropium Inh) 18 Mcg Cap 18 Mcg INH DAILY Symbicort Inh (Budesonide/Formoterol Fumarate) 160-4.5 Mcg/Act Aero 2 Puff INH BID Proventil Hfa 6.7 GM Inh (Albuterol Sulfate) 90 Mcg/Act Aer 2 Puff INH QID Aspirin Children's (Aspirin) 81 Mg Chew 81 Mg CHEW DAILY Albuterol Neb (Albuterol Sulfate) 2.5 Mg/3 Ml Neb 2.5 Mg NEB Q6HR PRN . Current Medications Medications (Trade) Dose Ordered Sig/Mitchell Route Start Time Stop Time Status Last Admin Phenylephrine HCl 40 mg/Dextrose 500 ml @ 30 mls/hr TITRATE PRN IV 09/27/17 03:15 09/28/17 06:27 (Aspirin Chew) 81 mg DAILY CHEW 09/27/17 09:00 (Lipitor) 40 mg HS PO 09/27/17 21:00 09/27/17 20:36 (Symbicort 160-4.5 Mcg Inh) 2 puff BID INH 09/27/17 09:00 (Benadryl) 50 mg Q6H PRN PO 09/27/17 04:30 (Cymbalta Dr) 60 mg DAILY PO 09/27/17 09:00 09/27/17 09:30 (Ferrous Sulfate) 325 mg DAILY PO 09/27/17 09:00 09/28/17 08:22 (Spiriva Inh) 18 mcg DAILY INH 09/27/17 09:00 (Tricor) 96 mg DAILY PO 09/27/17 09:00 09/28/17 08:19 (Tylenol) 650 mg Q6H PRN PO 09/27/17 04:45 (Ativan Inj) 1 mg Q1H PRN IV PUSH 09/27/17 04:45 09/27/17 06:07 (Zofran Odt) 4 mg Q6H PRN PO 09/27/17 04:45 (Duoneb Neb) 1 ampule Q6HR NEB INH 09/27/17 04:45 09/28/17 08:01 (Duoneb Neb) 1 ampule Q2HR NEB PRN INH 09/27/17 04:45 (Heparin Inj) 5,000 units Q8H SQ 09/27/17 06:00 09/27/17 21:46 ([facility] Nursing Information) 1 [id number] XX 09/27/17 04:45 (Chlorhexidine 2% Cloth) 3 pack Taper DAILY@04 TOP 09/28/17 04:00 09/24/18 03:59 09/28/17 03:21 (Chlorhexidine 2% Cloth) 3 pack UNSCH PRN TOP 09/27/17 04:45 (Debbie-Colace) 1 tab BID PO 09/27/17 09:00 09/28/17 08:22 (Milk Of Magnesia Liq) 30 ml Q12H PRN PO 09/27/17 04:45 (Senokot) 17.2 mg Q12H PRN PO 09/27/17 04:45 (Dulcolax Supp) 10 mg DAILY PRN RECTAL 09/27/17 04:45 (Lactulose Liq) 30 ml DAILY PRN PO 09/27/17 04:45 (Peridex 0.12% Liq) 15 ml BID@08,20 MT 09/27/17 08:00 09/28/17 08:21 Propofol 100 ml @ 2.22 mls/hr TITRATE PRN IV 09/27/17 04:45 (NS Flush) 2 ml UNSCH PRN IV FLUSH 09/27/17 04:45 (NS Flush) 2 ml BID IV FLUSH 09/27/17 09:00 09/28/17 08:21 Pharmacy Profile Note 0 ml @ 0 mls/hr UNSCH OTHER 09/27/17 04:45 Piperacillin Sod/ Tazobactam Sod 100 ml @ 200 mls/hr Q6H IV 09/27/17 10:00 09/28/17 08:22 (D50w (Vial) Inj) 50 ml UNSCH PRN IV PUSH 09/27/17 04:45 (Glucagon Inj) 1 mg UNSCH PRN OTHER 09/27/17 04:45 (NovoLIN R SUPPLEMENTAL SCALE) 1 ACHS SLIDING SCALE SQ 09/27/17 08:00 09/28/17 08:21 Fentanyl Citrate 250 ml @ 5 mls/hr TITRATE PRN IV 09/27/17 07:45 09/27/17 09:34 (Pepcid Inj) 10 mg Q12HR IV PUSH 09/27/17 09:00 09/28/17 08:19 Norepinephrine Bitartrate 250 ml @ 7.5 mls/hr TITRATE PRN IV 09/27/17 08:45 09/28/17 03:42 (Brethine Inj) 1 mg UNSCH PRN SQ 09/27/17 08:45 Vasopressin 40 units/Dextrose 100 ml @ 6 mls/hr [id number] IV 09/27/17 09:01 09/28/17 00:35 (SoluCORTEF INJ) 50 mg Q6HR IV PUSH 09/27/17 12:00 09/28/17 05:33 Sodium Chloride 1,000 ml @ 42 mls/hr [id number] IV 09/27/17 14:00 09/27/17 17:48 Family History Sister has alzheimers disease- unknown if she is now Mother and father of old age . Substance Use Tobacco: History of smoking 1 pack per day for over 35 years Alcohol: History of alcohol consumption Prescription med abuse: None reported Illicits: None reported . Psychosocial History Patient is originally from [place]. He has lived in [place] and in in [place]. He moved to [place] for longterm to [place] over 20 years ago. 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 Patient was once and . He has 2 adult children, a daughter Ronda Quevedo and an estranged son Nirali. Is currently a resident at [facility]. . Spiritual/Cultural Factors Patient is Mormonism- Requesting visit from . Living Will: Completed, but not made available Health Care Surrogate: Completed, but not made available Durable Power of Seating Captain: Completed, but not made available Health Care Surrogate(s): Per daughter Ronda Quevedo ) she is the DPOA- Will fax papers tomorrow 09/28/17 . Today's verbally stated goals: Patient`s daughter wants to proceed with compassionate withdrawal from life support. . Ethical and Legal Issues None identified at this time . Physical Exam Vital Signs Date Time Temp Pulse Resp B/P (MAP) Pulse Ox O2 Delivery O2 Flow Rate FiO2 09/28/17 08:02 98 40 09/28/17 08:00 40 5/28/18 08:00 81 117/78 (91) 141/67 (91) 09/28/17 08:00 97.5 81 20 117/78 (91) 100 141/67 (91) 09/28/17 08:00 81 09/28/17 06:27 79 122/64 09/28/17 06:00 80 09/28/17 04:00 82 09/28/17 04:00 98.3 82 20 136/66 (89) 100 139/61 (87) 09/28/17 04:00 82 136/66 (89) 139/61 (87) 09/28/17 04:00 55 09/28/17 03:42 80 137/65 09/28/17 03:29 100 40 09/28/17 02:00 79 09/28/17 00:35 78 130/62 09/28/17 00:00 79 124/63 (83) 131/60 (83) 09/28/17 00:00 55 09/28/17 00:00 79 09/28/17 00:00 98.1 78 20 124/63 (83) 100 132/62 (85) 09/27/17 23:45 100 50 09/27/17 22:20 80 146/60 09/27/17 22:00 80 09/27/17 21:00 81 134/56 09/27/17 20:22 100 50 09/27/17 20:15 82 132/56 09/27/17 20:09 84 135/57 09/27/17 20:00 98.2 83 20 138/65 (89) 100 144/60 (88) 09/27/17 20:00 55 09/27/17 20:00 83 175/67 (103) 132/57 (82) 09/27/17 20:00 83 09/27/17 20:00 81 142/81 09/27/17 18:00 87 09/27/17 17:41 86 115/65 09/27/17 17:32 86 115/65 09/27/17 16:00 89 09/27/17 16:00 89 117/61 (79) 104/50 (68) 09/27/17 16:00 55 09/27/17 15:00 98.1 90 20 125/57 (79) 100 114/52 (72) 09/27/17 14:29 100 50 09/27/17 14:00 89 09/27/17 13:15 97.8 86 20 128/60 100 09/27/17 13:12 86 128/60 09/27/17 13:12 86 128/61 09/27/17 12:00 87 09/27/17 12:00 87 138/67 (90) 142/57 (85) 09/27/17 12:00 55 09/27/17 11:00 97.7 93 24 168/67 (100) 100 09/27/17 10:24 97.7 96 24 154/71 100 09/27/17 10:12 97 166/79 09/27/17 10:09 97.7 97 20 166/79 100 09/27/17 10:00 96 Exam CONSTITUTIONAL/GENERAL: This is a chronically ill elderly patient, intubated, sedated in no acute distress TUBES/LINES/DRAINS: ETT, PIV, left AC A-line, left subclavian central line, Darby catheter, SCDs, OG tube SKIN: Dry skin to BUE, skin tears to BUE covered with dressings, ecchymoses on upper extremities. Skin temperature cool to touch. Cyanotic nail beds to all 4 extremities. Petechiae noted to bilateral lower extremities. HEAD: Atraumatic. Normocephalic. EYES: Pupils equal and round and slightly reactive to light. Extraocular motions intact. No scleral icterus. Fundi not examined. ENT: Unable to assess hearing. No nasal bleeding or purulent drainage. Moist oral mucosa. NECK: Trachea midline. Supple, nontender. CARDIOVASCULAR: Regular rate and rhythm without murmurs, gallops, or rubs. No JVD. Peripheral pulses symmetric. RESPIRATORY/CHEST: Symmetric, unlabored respirations. Diminished lung sounds. No wheezes, rales, or rhonchi. GASTROINTESTINAL: Abdomen soft, non-tender, nondistended. Bowel sounds present. GENITOURINARY: Without palpable bladder distension. Darby catheter in place with scant urine output. MUSCULOSKELETAL: Extremities with cyanosis to nail beds, digits and edema. No joint tenderness or effusion noted. NEUROLOGICAL: Intubated and sedated on mechanical ventilator.Slight withdrawal from pain with BLE. PSYCHIATRIC: Unable to assess, intubated and sedated. .. Diagnostic Tests Laboratory Laboratory Tests Test 09/27/17 01:35 09/27/17 02:35 09/27/17 04:28 09/27/17 05:50 White Blood Count 8.2 TH/MM3 (4.0-11.0) Red Blood Count 3.00 MIL/MM3 (4.50-5.90) Hemoglobin 8.0 GM/DL (13.0-17.0) Hematocrit 26.4 % (39.0-51.0) Mean Corpuscular Volume 87.9 FL (80.0-100.0) Mean Corpuscular Hemoglobin 26.7 PG (27.0-34.0) Mean Corpuscular Hemoglobin Concent 30.4 % (32.0-36.0) Red Cell Distribution Width 26.8 % (11.6-17.2) Platelet Count 99 TH/MM3 (150-450) Mean Platelet Volume 11.2 FL (7.0-11.0) Neutrophils (%) (Auto) 56.6 % (16.0-70.0) Lymphocytes (%) (Auto) 31.4 % (9.0-44.0) Monocytes (%) (Auto) 9.6 % (0.0-8.0) Eosinophils (%) (Auto) 1.4 % (0.0-4.0) Basophils (%) (Auto) 1.0 % (0.0-2.0) Neutrophils # (Auto) 4.6 TH/MM3 (1.8-7.7) Lymphocytes # (Auto) 2.6 TH/MM3 (1.0-4.8) Monocytes # (Auto) 0.8 TH/MM3 (0-0.9) Eosinophils # (Auto) 0.1 TH/MM3 (0-0.4) Basophils # (Auto) 0.1 TH/MM3 (0-0.2) CBC Comment AUTO DIFF Differential Comment AUTO DIFF CONFIRMED Platelet Estimate LOW (NORMAL) Platelet Morphology Comment NORMAL (NORMAL) Polychromasia 3.3 % (0.0-1.9) Target Cells 1+ (NORMAL) Ovalocytes 1+ (NORMAL) Acanthocytes OCC (NORMAL) Keratocytes OCC (NORMAL) Prothrombin Time 14.7 SEC (9.8-11.6) Prothromb Time International Ratio 1.5 RATIO Activated Partial Thromboplast Time 27.6 SEC (24.3-30.1) Urine Color YELLOW (YELLW/STRAW) Urine Turbidity CLEAR (CLEAR) Urine pH 5.0 (5.0-8.5) Urine Specific [place] 1.016 (1.002-1.035) Urine Protein NEG mg/dL (NEG-TRACE) Urine Glucose (UA) NEG mg/dL (NEG) Urine Ketones NEG mg/dL (NEG) Urine Occult Blood NEG (NEG) Urine Nitrite NEG (NEG) Urine Bilirubin NEG (NEG) Urine Urobilinogen LESS THAN 2.0 MG/DL (LESS Urine Leukocyte Esterase NEG (NEG) Urine RBC 1 /hpf (0-3) Urine WBC 1 /hpf (0-5) Urine Squamous Epithelial Cells 1 /hpf (0-5) Urine Bacteria RARE /hpf (NONE) Urine Hyaline Casts 2 /lpf (RARE) Microscopic Urinalysis Comment CATH-CULTURE IND Blood Urea Nitrogen 49 MG/DL (7-18) Creatinine 4.77 MG/DL (0.60-1.30) Random Glucose 103 MG/DL (74-106) Total Protein 4.9 GM/DL (6.4-8.2) Albumin 1.4 GM/DL (3.4-5.0) Calcium Level 6.8 MG/DL (8.5-10.1) Alkaline Phosphatase 68 U/L (45-117) Aspartate Amino Transf (AST/SGOT) 59 U/L (15-37) Alanine Aminotransferase (ALT/SGPT) 21 U/L (12-78) Total Bilirubin 0.8 MG/DL (0.2-1.0) Sodium Level 143 MEQ/L (136-145) Potassium Level 4.6 MEQ/L (3.5-5.1) Chloride Level 102 MEQ/L (98-107) Carbon Dioxide Level 24.7 MEQ/L (21.0-32.0) Anion Gap 16 MEQ/L (5-15) Estimat Glomerular Filtration Rate 12 ML/MIN (>89) Lactic Acid Level 11.3 mmol/L (0.4-2.0) 10.4 mmol/L (0.4-2.0) Protein Corrected Calcium 7.9 MG/DL (8.5-10.1) Total Creatine Kinase 86 U/L (39-308) Troponin I LESS THAN 0.02 NG/ML Lipase 69 U/L (73-393) Blood Gas Puncture Site RT RADIAL Blood Gas Patient Temperature 98.6 Blood Gas HCO3 25 mmol/L (22-26) Blood Gas Base Excess -1.3 mmol/L (-2-2) Blood Gas Oxygen Saturation 98 % (90-100) Arterial Blood pH 7.27 (7.380-7.420) Arterial Blood Partial Pressure CO2 55 mmHg (38-42) Arterial Blood Partial Pressure O2 289 mmHG (61-120) Arterial Blood Oxygen Content 10.8 Vol % (12.0-20.0) Arterial Blood Carboxyhemoglobin 0.9 % (0-4) Arterial Blood Methemoglobin 1.0 % (0-2) Blood Gas Hemoglobin 7.3 G/DL (12.0-16.0) Oxygen Delivery Device VENTILATOR Blood Gas Ventilator Setting Blood Gas Inspired Oxygen 100 % Nasal Screen MRSA (PCR) MRSA DETECTED (NOT DETECT) Test 09/27/17 07:40 09/27/17 07:55 09/27/17 08:00 09/27/17 08:35 Lactic Acid Level 3.5 mmol/L (0.4-2.0) Troponin I 0.03 NG/ML (0.02-0.05) Blood Gas Puncture Site CENTRAL LINE ART LINE Blood Gas Patient Temperature 98.6 98.6 Venous Blood pH 7.27 (7.360-7.400) Venous Blood Partial Pressure CO2 54 mmHg (44-48) Venous Blood Partial Pressure O2 39 mmHg (35-40) Venous Blood HCO3 24 mmol/L (22-26) Venous Blood Oxygen Saturation 59 % (70-76) Venous Blood Oxygen Content 5.9 Vol % (9.0-17.0) Venous Blood Base Excess -2.2 mmol/L (-2-2) Oxygen Delivery Device VENTILATOR VENTILATOR Blood Gas Ventilator Setting PRVC/AC500/16/5PEEP PRVC/AC 500/16/5PEEP Blood Gas Inspired Oxygen 40 % 40 % Blood Gas HCO3 23 mmol/L (22-26) Blood Gas Base Excess -2.8 mmol/L (-2-2) Blood Gas Oxygen Saturation 84 % (90-100) Arterial Blood pH 7.29 (7.380-7.420) Arterial Blood Partial Pressure CO2 48 mmHg (38-42) Arterial Blood Partial Pressure O2 59 mmHg (61-120) Arterial Blood Oxygen Content 8.6 Vol % (12.0-20.0) Arterial Blood Carboxyhemoglobin 1.0 % (0-4) Arterial Blood Methemoglobin 2.0 % (0-2) Blood Gas Hemoglobin 7.3 G/DL (12.0-16.0) Urine Eosinophils NONE SEEN /HPF (NONE SEEN) Urine Random Creatinine 235.9 MG/DL Urine Random Sodium 21 MEQ/L Test 09/27/17 10:10 09/27/17 13:05 09/27/17 14:50 09/27/17 18:04 Ammonia 84 MCMOL/L (11-32) B-Type Natriuretic Peptide 200 PG/ML (0-100) Lactic Acid Level 2.4 mmol/L (0.4-2.0) 3.1 mmol/L (0.4-2.0) Random Cortisol 119.9 MCG/DL Hemoglobin 9.3 GM/DL (13.0-17.0) Hematocrit 30.0 % (39.0-51.0) Troponin I 0.02 NG/ML (0.02-0.05) Test 09/27/17 23:50 09/28/17 03:45 Lactic Acid Level 2.8 mmol/L (0.4-2.0) White Blood Count 18.7 TH/MM3 (4.0-11.0) Red Blood Count 3.16 MIL/MM3 (4.50-5.90) Hemoglobin 8.7 GM/DL (13.0-17.0) Hematocrit 27.7 % (39.0-51.0) Mean Corpuscular Volume 87.7 FL (80.0-100.0) Mean Corpuscular Hemoglobin 27.5 PG (27.0-34.0) Mean Corpuscular Hemoglobin Concent 31.3 % (32.0-36.0) Red Cell Distribution Width 24.3 % (11.6-17.2) Platelet Count 69 TH/MM3 (150-450) Mean Platelet Volume 11.3 FL (7.0-11.0) Neutrophils (%) (Auto) 89.8 % (16.0-70.0) Lymphocytes (%) (Auto) 5.7 % (9.0-44.0) Monocytes (%) (Auto) 4.1 % (0.0-8.0) Eosinophils (%) (Auto) 0.0 % (0.0-4.0) Basophils (%) (Auto) 0.4 % (0.0-2.0) Neutrophils # (Auto) 16.8 TH/MM3 (1.8-7.7) Lymphocytes # (Auto) 1.1 TH/MM3 (1.0-4.8) Monocytes # (Auto) 0.8 TH/MM3 (0-0.9) Eosinophils # (Auto) 0.0 TH/MM3 (0-0.4) Basophils # (Auto) 0.1 TH/MM3 (0-0.2) CBC Comment AUTO DIFF Differential Total Cells Counted 100 Neutrophils % (Manual) 60 % (16-70) Band Neutrophils % 34 % (0-6) Lymphocytes % 4 % (9-44) Monocytes % 2 % (0-8) Neutrophils # (Manual) 17.6 TH/MM3 (1.8-7.7) Nucleated Red Blood Cells 4 /100 WBC (0-0) Differential Comment FINAL DIFF MANUAL Platelet Estimate LOW (NORMAL) Platelet Morphology Comment NORMAL (NORMAL) Ovalocytes 1+ (NORMAL) Acanthocytes OCC (NORMAL) Keratocytes OCC (NORMAL) Red Cell Morphology Comment (NORMAL) Prothrombin Time 14.0 SEC (9.8-11.6) Prothromb Time International Ratio 1.4 RATIO Activated Partial Thromboplast Time 43.9 SEC (24.3-30.1) Blood Urea Nitrogen 45 MG/DL (7-18) Creatinine 5.06 MG/DL (0.60-1.30) Random Glucose 214 MG/DL (74-106) Total Protein 4.8 GM/DL (6.4-8.2) Albumin 1.3 GM/DL (3.4-5.0) Calcium Level 6.3 MG/DL (8.5-10.1) Phosphorus Level 6.6 MG/DL (2.5-4.9) Magnesium Level 2.1 MG/DL (1.5-2.5) Alkaline Phosphatase 63 U/L (45-117) Aspartate Amino Transf (AST/SGOT) 100 U/L (15-37) Alanine Aminotransferase (ALT/SGPT) 31 U/L (12-78) Total Bilirubin 0.9 MG/DL (0.2-1.0) Sodium Level 137 MEQ/L (136-145) Potassium Level 4.9 MEQ/L (3.5-5.1) Chloride Level 105 MEQ/L (98-107) Carbon Dioxide Level 18.8 MEQ/L (21.0-32.0) Anion Gap 13 MEQ/L (5-15) Estimat Glomerular Filtration Rate 11 ML/MIN (>89) Protein Corrected Calcium 7.4 MG/DL (8.5-10.1) Random Vancomycin Level 10.4 COMMENT Result Diagram: 09/28/17 0345 09/28/17 0345 Microbiology Microbiology Date/Time Source Procedure Growth Status 09/27/17 01:40 Blood Peripheral Aerobic Blood Culture Pending Received 09/27/17 01:40 Blood Peripheral Anaerobic Blood Culture Pending Received 09/27/17 01:35 Blood Peripheral Aerobic Blood Culture Pending Received 09/27/17 01:35 Blood Peripheral Anaerobic Blood Culture Pending Received 09/27/17 06:10 Sputum Endotracheal Gram Stain - Final Resulted 09/27/17 06:10 Sputum Endotracheal Sputum Culture Pending Resulted 09/27/17 01:35 Urine Catheterized Urine Urine Culture Pending Received 09/27/17 01:35 Urine Catheterized Urine Legionella Antigen - Final PRESUMPTIVE NEGATIVE FOR LEGIONELLA P... Complete 09/27/17 01:35 Urine Catheterized Urine Streptococcus pneumoniae Antigen (M - Final PRESUMPTIVE NEGATIVE FOR STREPTOCOCCU... Complete Imaging Last Impressions Chest X-Ray 09/28/17 0600 Signed Impressions: CONCLUSION: Probable mild pulmonary edema and slight bibasilar atelectasis and/or infiltrat e worse on the left. Head CT 09/27/17 0000 Signed Impressions: CONCLUSION: No acute intracranial abnormality demonstrated. Procedures 09/27/17-intubation [facility] 09/27/17-left subclavian central line placement . Patient/Family Conference Family Conference Location: Telephone Issues Discussed: * Palliative care role, purpose, approach * Additional medical, psychosocial, and spiritual history * Patients general health, functional status, and cognitive changes in the months leading up to the current hospitalization * Patient/family understanding of the current medical problems * Patient/family understanding of prognosis * Patients goals of care as best understood from advance directives and/or conversations and/or values * Current medical treatment options and benefits/burdens of those options * Likely scenarios comparing ongoing aggressive care with a transition to comfort measures only * Questions answered to the best of my ability * Introduced hospice philosophy and benefits * Palliative care contact information provided Assessment and Plan Disease Oriented Problem List: (1) Sepsis (2) Acute hypoxemic respiratory failure (3) Acute kidney injury (4) Lactic acidemia (5) Coronary artery disease (6) Diabetes mellitus Symptom Scale: (1) Shortness of breath (2) Pain (3) Debility Comment: Progressive . Pertinent Non-Medical Issues Psychosocial:Patient is originally from [place]. He has lived in [place] and in in [place]. He moved to [place] for longterm to [place] over 20 years ago. 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 Patient was once and . He has 2 adult children, a daughter Ronda Quevedo and an estranged son Nirali. Is currently a resident at [facility]. Spiritual: Patient is [employer]ism- Requesting visit Legal:Per daughter patient has completed DPOA, Living Will Ethical issues impacting care: None identified at this time . Important Contacts -Ronda Quevedo (daughter) [phone] Sae Degroot (son-in-law) [phone] . Prognosis Mr. 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 difficile, MRSA and bladder cancer. Patient was brought to the ER on 09/27/17 from [facility] via EMS for further evaluation of unresponsiveness and respiratory distress. Patient was emergently intubated by EMS due to severe work of breathing. Clinical course complicated with worsening leukocytosis, hypotension requiring pressor support, renal failure. Given ongoing comorbidities, patient remains at high risk for further complications and decline. Prognosis is very poor. Family requesting compassionate withdrawal from life support. . Code Status: Alternative Code Plan PLAN: Legal decision maker: Patient is currently intubated, sedated on mechanical ventilator. Per discussion with daughter Ronda Quevedo, she is the DPOA and is willing to participate in medical decision making. Ronda Quevedo will fax DPOA papers tomorrow. Goals: Patient`s daughter, Ronda Quevedo does not want to escalate care. She would like to proceed with compassionate withdrawal of care and transition patient to comfort care through hospice services. CODE STATUS: Alternative Code. Intubation only, no CPR, no shock, no escalation of care. Discussed patient`s trajectory of decline in the past 6 months. Per patient`s daughter, patient completed advanced directives in 2012, DPOA and living will. Ronda Quevedo is the designated DURABLE POWER OF RETAIL SUPERVISOR. She will try to fax the papers tomorrow to palliative care. Addressed code status. Patient's daughter wants patient to be a DNR. Given that patients renal status is worsening she does not want to escalate care. Patient`s daughter mentioned that she has discussed her fathers condition with critical care management and nephrology. She does not want to escalate care and would like to proceed with compassionate withdrawal from life support and stop all aggressive treatment. She mentions that he father has suffered for a long time and she would like to comfort care only through hospice services at time of compassionate withdrawal from life support. Palliative care contact information and fax number provided. SYMPTOMS: * Shortness of breath: Patient has history of COPD with chronic bronchitis on home oxygen. Patient's chest x-ray revealed bibasilar consolidation and small left pleural effusion. Patient is currently intubated on mechanical ventilator with an FiO2 of 40%. Currently on antibiotics, Solu Cortef, and DuoNeb treatments. No further recommendation * Pain: Pain related to being bedbound status, invasive procedures. Patient is currently on fentanyl 100 mcg/hour. No signs of pain noted. * Debility: Progressive. Patient has had multiple hospitalizations in the past 6 months. Was currently moving in a [place] [facility]. PT consulted. Family would like to proceed with compassionately withdraw from life support. Palliative care will continue to follow the patient during hospital course as condition evolves, to assist patient/decision-maker with understanding of their medical conditions, weighing benefits/burdens of treatment options, for clarification of goals of treatment. Additionally will assist with any symptoms of palliative concern. Thank you for the opportunity to participate in the care of Mr. Garcia. Attestation To help prompt me to consider important information that might be impacting today's encounter and assessment, information from prior notes written by myself or my colleagues may have been "brought forward" into today's note. My signature on this note, however, is an attestation that I personally performed the exam, history, and/or decision-making noted today, and, unless otherwise indicated, the interactions with patient, family, and staff as well as the review of records all occurred today. I also attest that the listed assessment and stated plan reflect my best clinical judgment today based on the combination of historical information, prior notes, and today's exam/ interactions. When time spent is documented, it refers only to time spent today by the signer, or if indicated, combined time spent today by collaborating physician/nurse practitioner. Radah Flores September 28, 2017 10:59
[2017-09-28] MEDS: SODIUM BICARBONATE 8.4% INJ 150 MEQ in DEXTROSE 5% IN WATE 1000ML INJ 850 ML IV SCH ×2 (12:22)
[2017-09-28] MEDS: fentaNYL DRIP 250 ML IV PRN (12:23)
[2017-09-28] MEDS ORDERED: SODIUM BICARBONATE 8.4% INJ 50 MEQ/50 ML SYR IV PUSH ONE (13:30)
--- NOTE | 2017-09-28 14:58 | HHI.CCPN ---
Subjective Remarks/Hospital Course 77-year-old gentleman currently a resident at [facility], apparently the patient asked for pain medication and was given a hydrocodone approximately 2 hours prior to admission. Then upon be asking to go use the bathroom and ask for assistance the GLASS CLEANING MACHINE TENDER noticed that he was slumped over and did not seem to be responsive. 911 was called, upon arrival EMS states that he was and respiratory distress with severe work of breathing and the patient required intubation emergently. Per chart documentation used 20 of etomidate of 4 mg of Versed to aid in sedation for the intubation. Subjective: 09/27:0747, discussed with radiologist placement of left subclavian line by emergency room department. Dr. Hendricks, discussed possibility of arterial placement of left subclavian line. ABGs obtained from subclavian line-noted venous PaO2 39. Left radial arterial line, placed PaO2 59. Patient continues on phenylephrine currently at 150 mcgs. 09/28: Late entry note. Patient seen at 12 PM. Leukocytosis worsening. MRSA in sputum but MDRO, infectious disease consulted. Patient noted with metabolic acidosis 1 amp sodium bicarbonate provided and infusion initiated. Patient continues on norepinephrine at 2 mcgs/min, phenylephrine has been weaned off. Cardiac index 2.7 cardiac output per Flotrach 5.0. Objective Vital Signs Date Time Temp Pulse Resp B/P (MAP) Pulse Ox O2 Delivery O2 Flow Rate FiO2 09/28/17 14:00 86 09/28/17 12:00 97.6 20 110/71 (84) 100 123/61 (81) 09/28/17 12:00 40 09/27/17 03:42 Venturi Mask Intake and Output 09/28/17 09/28/17 09/29/17 08:00 16:00 00:00 Intake Total 2334 ml 100 ml Output Total 30 ml Balance 2304 ml 100 ml Result Diagram: 09/28/17 0345 09/28/17 0345 Other Results Microbiology Date/Time Source Procedure Growth Status 09/27/17 01:35 Urine Catheterized Urine Legionella Antigen - Final PRESUMPTIVE NEGATIVE FOR LEGIONELLA P... Complete 09/27/17 01:35 Urine Catheterized Urine Streptococcus pneumoniae Antigen (M - Final PRESUMPTIVE NEGATIVE FOR STREPTOCOCCU... Complete Laboratory Tests Test 09/28/17 12:34 Blood Gas Puncture Site ART LINE Blood Gas Patient Temperature 98.6 Blood Gas HCO3 18 mmol/L (22-26) Blood Gas Base Excess -7.9 mmol/L (-2-2) Blood Gas Oxygen Saturation 94 % (90-100) Arterial Blood pH 7.26 (7.380-7.420) Arterial Blood Partial Pressure CO2 41 mmHg (38-42) Arterial Blood Partial Pressure O2 89 mmHg (61-120) Arterial Blood Oxygen Content 11.7 Vol % (12.0-20.0) Arterial Blood Carboxyhemoglobin 0.7 % (0-4) Arterial Blood Methemoglobin 1.6 % (0-2) Blood Gas Hemoglobin 8.8 G/DL (12.0-16.0) Oxygen Delivery Device VENTILATOR Blood Gas Ventilator Setting PRVC/AC Blood Gas Inspired Oxygen 40 % Imaging Last Impressions Chest X-Ray 09/28/17 0600 Signed Impressions: CONCLUSION: Probable mild pulmonary edema and slight bibasilar atelectasis and/or infiltrat e worse on the left. Head CT 09/27/17 0000 Signed Impressions: CONCLUSION: No acute intracranial abnormality demonstrated. Last 24 hours Impressions Chest X-Ray 09/27/17 0259 Signed Impressions: CONCLUSION: 1. There is a new left subclavian line. Based on its course, it could be arter ial and please confirm this is not the case clinically. 2. No pneumothorax. 3. Mild basilar consolidation and small left pleural effusion not significantl y changed. Chest X-Ray 09/27/17 0128 Signed Impressions: CONCLUSION: 1. Mild bibasilar consolidation and small left pleural effusion. 2. Appropriate endotracheal tube tip position. Objective Remarks GENERAL: This is a well-developed well-nourished critically ill-appearing male intubated and sedated SKIN: Warm and dry. HEAD: Atraumatic. Normocephalic. EYES: Pupils equal and round. No scleral icterus. No injection or drainage. ENT: No nasal bleeding or discharge. Mucous membranes pink and moist. NECK: Trachea midline. No JVD. CARDIOVASCULAR: Regular rate and rhythm. RESPIRATORY: No accessory muscle use. Clear to auscultation B/L. Breath sounds equal bilaterally. GASTROINTESTINAL: Abdomen soft, non-tender, nondistended. Hepatic and splenic margins not palpable. MUSCULOSKELETAL: Extremities without clubbing, cyanosis, or edema. No obvious deformities. NEUROLOGICAL: GCS 3 T. Prior to sedation spontaneous eye opening and spontaneous movement of extremities 4 Date of Insertion: September 27, 2017 Date of Insertion: September 27, 2017 Side: Left Location: Subclavian A/P Problem List: (1) Altered mental status, unspecified ICD Code: R41.82 - Altered mental status, unspecified (2) Acute hypoxemic respiratory failure ICD Code: J96.01 - Acute respiratory failure with hypoxia (3) Sepsis ICD Code: A41.9 - Sepsis, unspecified organism Status: Resolved Assessment and Plan Plan by systems: Neurologic: Acute metabolic encephalopathy 09/27 CT head-negative Neurochecks per ICU protocol Daily sedation vacation when clinically appropriate/hemodynamically stable Fentanyl infusion for ventilator synchrony Respiratory: Acute hypoxemic and hypercarbic respiratory failure COPD -09/27 intubated for airway protection -No weaning until neurologically improve -DuoNeb scheduled and as needed -09/27 ABG subclavian line-7.26/54/39/23/-2.2 -09/27 ABG left radial-7.2 9/48/59/22/-2.8-increased respiratory rate -Mechanical ventilation / -No CPAP trials until hemodynamically stable -Vent bundle -Broad-spectrum empiric antibiotics Cardiovascular: Septic shock Coronary artery disease Ischemic cardiomyopathy Congestive heart failure -Rule out acute coronary syndrome -Series of troponins and EKGs -Echo 06/2016-EF 30-35%, Mild TR -Aspirin for now -Patient currently on norepinephrine and vasopressin infusion to maintain MAP>65 -Maintain MAP greater than 65 -Add hydrocortisone 50 mg every 6 hours - 09/27/17 ECHO- EF 50-55%, mild MR - BNP 568 Renal: Acute kidney injury -Maintain Darby -- Strict I/Os FEN/GI: Moderate protein calorie malnutrition Electrolyte derangement Metabolic acidosis Elevated creatinine -Patient received 3 L normal saline in the ED -1 amp sodium bicarbonate IV push -Begin sodium bicarbonate infusion at 75 cc/hr -Initiate trickle feeds 10 cc/hr--Glucerna tube feeds at trickle -Calcium gluconate 2 g IV now -Nephrology consulted Heme/ID: Lactic acidemia Anemia H/O MDRO Leukocytosis -Obtain blood , urine and - 09/27 sputum culture- MRSA -Monitor lactate level, until cleared -Type and screen -Iron supplementation -Transfuse for hemoglobin less than 8 -Continue broad-spectrum empiric antibiotics-Vanco, Zosyn, azithromycin -Unclear source of infection -Panculture 09/27 -De-escalate antibiotics per sensitivity and culture Endocrine: Diabetes mellitus -Insulin sliding scale -Resume Lantus insulin when indicated Glucose monitoring per ICU protocol, low-dose regimen -- SSI Prophylaxis: GI Prophylaxis Famotidine BID DVT Prophylaxis -- SCDs Heparin SQ Lines: Peripheral IVs 2. Left subclavian line placed in the ED by attending 09/27 Dispo: Discussed with EXHIBITION ORGANISER at bedside Deborah my billing statement This patient remains critically ill with one or more organ systems which are or may become a threat to life. I have spent in excess of 32 minutes discontinuously in the care and management of this patient. This time is exclusive of procedures, and includes, but is not limited to, evaluation of the patient, review of the medical record, discussions with family, consultants, nursing staff, or respiratory therapy, and documentation in the medical record. Physician Heather Henley MD September 28, 2017 14:58
[2017-09-28] MEDS ORDERED: VANCOMYCIN 1,000 MG/NS 250 ML IV ONE ×2 (15:00)
[2017-09-28 16:27] LABS: HEMOGLOBIN A1C 6.6 % (4.3-6.0)
--- NOTE | 2017-09-28 16:27 | PD.CONS ---
HPI Service Nephrology Consult Requested By Dr. Escobedo Reason for Consult ARF Primary Care Physician Mehran Cote MD History of Present Illness The patient is a 77 yo [place] male who was brought to this facility on 09/27 for respiratory failure. Reports state (as the patient is intubated and unable to provide any information) that he requested [facility] and was found slumped over approximately 2 hours later. He was subsequently intubated. Little else is known about the patient's history. I did have a conversation with the patient' s daughter, Ronda Quevedo, who lives in [place] who stated that the patient has had a significant deterioration in his overall health in the past 6 months. We have been consulted regarding ARF. Admitting SCr 4.77 with estimated GFR of 12 that worsened overnight to 5.06 and 14 Jun 2017 his SCr was 1.34 with estimated GFR 52 Prior labs show preserved renal function with SCr 0.8 as a baseline. UOP in the past 24h minimal at 380 RN states ~30mL since 0700 Sputum cx positive for MRSA BCx pending. (Gregoria Daugherty) Review of Systems ROS Limitations: Clinical Condition, Intubated (Gregoria Daugherty) Past Family Social History Allergies: Coded Allergies: Sulfa (Sulfonamide Antibiotics) (Verified Allergy, Severe, Anaphylaxis, ) *MDRO Multi-Drug Resistant Organism (Verified Adverse Reaction, Unknown, ) MRSA (hand)-06/10/16 Past Medical History CAD s/p PTCA Atrial fibrillation PVD COPD on chronic O2 HTN Bladder CA GERD C diff colitis Past Surgical History PTCA Reported Medications Protonix (Pantoprazole Sodium) 20 Mg Tab 20 Mg PO DAILY 30 Days Lopressor (Metoprolol Tartrate) 50 Mg Tab 50 Mg PO Q12HR 30 Days 3-in-1 Bedside Toilet (Device) 1 Mis Mis 1 Ea .ROUTE DIRECTED Novolog Inj (Insulin Aspart) 1,000 Unit/10 Ml Vial 0 SQ DIRECTED Sliding Scale as directed. Colace (Docusate Sodium) 100 Mg Capsule 100 Mg PO BID Ferrous Sulfate 325 Mg (65 Mg Iron) Tablet 325 Mg PO DAILY Atorvastatin (Atorvastatin Calcium) 40 Mg Tab 40 Mg PO HS Bumetanide 1 Mg Tab 1 Mg PO DAILY Duloxetine DR (Duloxetine HCl) 60 Mg Capdr 60 Mg PO DAILY Diphenhydramine (Diphenhydramine HCl) 25 Mg Cap 50 Mg PO Q6H PRN Fenofibrate 50 Mg Cap 100 Mg PO DAILY Lantus Inj (Insulin Glargine) 1,000 Unit/10 Ml Vial 10 Units SQ HS Spiriva Handihaler (Tiotropium Inh) 18 Mcg Cap 18 Mcg INH DAILY 1 capsule = 18 mcg Symbicort Inh (Budesonide/Formoterol Fumarate) 160-4.5 Mcg/Act Aero 2 Puff INH BID Proventil Hfa 6.7 GM Inh (Albuterol Sulfate) 90 Mcg/Act Aer 2 Puff INH QID Aspirin Children's (Aspirin) 81 Mg Chew 81 Mg CHEW DAILY Albuterol Neb (Albuterol Sulfate) 2.5 Mg/3 Ml Neb 2.5 Mg NEB Q6HR PRN Active Ordered Medications Current Medications Medications (Trade) Dose Ordered Sig/Mitchell Route Start Time Stop Time Status Last Admin Phenylephrine HCl 40 mg/Dextrose 500 ml @ 30 mls/hr TITRATE PRN IV 09/27/17 03:15 09/28/17 06:27 (Aspirin Chew) 81 mg DAILY CHEW 09/27/17 09:00 (Lipitor) 40 mg HS PO 09/27/17 21:00 09/27/17 20:36 (Symbicort 160-4.5 Mcg Inh) 2 puff BID INH 09/27/17 09:00 (Benadryl) 50 mg Q6H PRN PO 09/27/17 04:30 (Cymbalta Dr) 60 mg DAILY PO 09/27/17 09:00 09/27/17 09:30 (Ferrous Sulfate) 325 mg DAILY PO 09/27/17 09:00 09/28/17 08:22 (Spiriva Inh) 18 mcg DAILY INH 09/27/17 09:00 (Tricor) 96 mg DAILY PO 09/27/17 09:00 09/28/17 08:19 (Tylenol) 650 mg Q6H PRN PO 09/27/17 04:45 (Ativan Inj) 1 mg Q1H PRN IV PUSH 09/27/17 04:45 09/27/17 06:07 (Zofran Odt) 4 mg Q6H PRN PO 09/27/17 04:45 (Duoneb Neb) 1 ampule Q6HR NEB INH 5/27/18 04:45 09/28/17 15:21 (Duoneb Neb) 1 ampule Q2HR NEB PRN INH 09/27/17 04:45 (Heparin Inj) 5,000 units Q8H SQ 09/27/17 06:00 09/27/17 21:[place] [place] 1 Q361D XX 09/27/17 04:45 (Chlorhexidine 2% Cloth) 3 pack Taper DAILY@04 TOP 09/28/17 04:00 09/24/18 03:59 09/28/17 03:21 (Chlorhexidine 2% Cloth) 3 pack UNSCH PRN TOP 09/27/17 04:45 (Debbie-Colace) 1 tab BID PO 09/27/17 09:00 09/28/17 08:22 (Milk Of Magnesia Liq) 30 ml Q12H PRN PO 09/27/17 04:45 (Senokot) 17.2 mg Q12H PRN PO 09/27/17 04:45 (Dulcolax Supp) 10 mg DAILY PRN RECTAL 09/27/17 04:45 (Lactulose Liq) 30 ml DAILY PRN PO 09/27/17 04:45 (Peridex 0.12% Liq) 15 ml BID@08,20 MT 09/27/17 08:00 09/28/17 08:21 Propofol 100 ml @ 2.22 mls/hr TITRATE PRN IV 09/27/17 04:45 (NS Flush) 2 ml UNSCH PRN IV FLUSH 09/27/17 04:45 (NS Flush) 2 ml BID IV FLUSH 09/27/17 09:00 09/28/17 08:21 Pharmacy Profile Note 0 ml @ 0 mls/hr UNSCH OTHER 09/27/17 04:45 Piperacillin Sod/ Tazobactam Sod 100 ml @ 200 mls/hr Q6H IV 09/27/17 10:00 09/28/17 08:22 (D50w (Vial) Inj) 50 ml UNSCH PRN IV PUSH 09/27/17 04:45 (Glucagon Inj) 1 mg UNSCH PRN OTHER 09/27/17 04:45 (NovoLIN R SUPPLEMENTAL SCALE) 1 ACHS SLIDING SCALE SQ 09/27/17 08:00 09/28/17 08:21 Fentanyl Citrate 250 ml @ 5 mls/hr TITRATE PRN IV 09/27/17 07:45 09/28/17 12:23 (Pepcid Inj) 10 mg Q12HR IV PUSH 09/27/17 09:00 09/28/17 08:19 Norepinephrine Bitartrate 250 ml @ 7.5 mls/hr TITRATE PRN IV 09/27/17 08:45 09/28/17 03:42 (Brethine Inj) 1 mg UNSCH PRN SQ 09/27/17 08:45 Vasopressin 40 units/Dextrose 100 ml @ 6 mls/hr [id number] IV 09/27/17 09:01 09/28/17 00:35 (SoluCORTEF INJ) 50 mg Q6HR IV PUSH 09/27/17 12:00 09/28/17 12:30 Sodium Bicarbonate 150 meq/Dextrose 1,000 ml @ 75 mls/hr [id number] IV 09/28/17 13:00 09/28/17 12:22 Family History NC Social History Lives at [facility] Daughter, Ronda Quevedo, lives in [place] (Gregoria Daugherty) Physical Exam Vital Signs Vital Signs Date Time Temp Pulse Resp B/P (MAP) Pulse Ox O2 Delivery O2 Flow Rate FiO2 09/28/17 15:22 96 40 09/28/17 14:00 86 09/28/17 12:00 97.6 83 20 110/71 (84) 100 123/61 (81) 09/28/17 12:00 83 110/71 (84) 123/61 (81) 09/28/17 12:00 83 09/28/17 12:00 40 09/28/17 11:20 100 40 09/28/17 10:00 85 09/28/17 08:02 98 40 09/28/17 08:00 40 09/28/17 08:00 81 117/78 (91) 141/67 (91) 09/28/17 08:00 97.5 81 20 117/78 (91) 100 141/67 (91) 09/28/17 08:00 81 09/28/17 06:27 79 122/64 09/28/17 06:00 80 09/28/17 04:00 82 09/28/17 04:00 98.3 82 20 136/66 (89) 100 139/61 (87) 09/28/17 04:00 82 136/66 (89) 139/61 (87) 09/28/17 04:00 55 09/28/17 03:42 80 137/65 09/28/17 03:29 100 40 09/28/17 02:00 79 09/28/17 00:35 78 130/62 09/28/17 00:00 79 124/63 (83) 131/60 (83) 09/28/17 00:00 55 09/28/17 00:00 79 09/28/17 00:00 98.1 78 20 124/63 (83) 100 132/62 (85) 09/27/17 23:45 100 50 09/27/17 22:20 80 146/60 09/27/17 22:00 80 09/27/17 21:00 81 134/56 09/27/17 20:22 100 50 09/27/17 20:15 82 132/56 09/27/17 20:09 84 135/57 09/27/17 20:00 98.2 83 20 138/65 (89) 100 144/60 (88) 09/27/17 20:00 55 09/27/17 20:00 83 175/67 (103) 132/57 (82) 09/27/17 20:00 83 09/27/17 20:00 81 142/81 09/27/17 18:00 87 09/27/17 17:41 86 115/65 09/27/17 17:32 86 115/65 Physical Exam GENERAL: Laying in bed. Intubated and sedated SKIN: Warm and dry. HEAD: Atraumatic. Normocephalic. EYES: Pupils equal and round. No scleral icterus. No injection or drainage. ENT: No nasal bleeding or discharge. Mucous membranes pink and moist. NECK: Trachea midline. No JVD. CARDIOVASCULAR: Regular rate and rhythm. RESPIRATORY: No accessory muscle use. Clear to auscultation. Bibasilar crackles GASTROINTESTINAL: Abdomen soft, non-tender, nondistended. Hepatic and splenic margins not palpable. MUSCULOSKELETAL: Extremities without clubbing, cyanosis, pitting edema bilat upper extremities NEUROLOGICAL: Intubated and sedated PSYCHIATRIC: Intubated and sedated Laboratory Laboratory Tests Test 09/27/17 18:04 09/27/17 23:50 09/28/17 03:45 09/28/17 12:30 Lactic Acid Level 3.1 2.8 Troponin I 0.02 White Blood Count 18.7 Red Blood Count 3.16 Hemoglobin 8.7 Hematocrit 27.7 Mean Corpuscular Volume 87.7 Mean Corpuscular Hemoglobin 27.5 Mean Corpuscular Hemoglobin Concent 31.3 Red Cell Distribution Width 24.3 Platelet Count 69 Mean Platelet Volume 11.3 Neutrophils (%) (Auto) 89.8 Lymphocytes (%) (Auto) 5.7 Monocytes (%) (Auto) 4.1 Eosinophils (%) (Auto) 0.0 Basophils (%) (Auto) 0.4 Neutrophils # (Auto) 16.8 Lymphocytes # (Auto) 1.1 Monocytes # (Auto) 0.8 Eosinophils # (Auto) 0.0 Basophils # (Auto) 0.1 CBC Comment AUTO DIFF Differential Total Cells Counted 100 Neutrophils % (Manual) 60 Band Neutrophils % 34 Lymphocytes % 4 Monocytes % 2 Neutrophils # (Manual) 17.6 Nucleated Red Blood Cells 4 Differential Comment FINAL DIFF MANUAL Platelet Estimate LOW Platelet Morphology Comment NORMAL Ovalocytes 1+ Acanthocytes OCC Keratocytes OCC Red Cell Morphology Comment Prothrombin Time 14.0 Prothromb Time International Ratio 1.4 Activated Partial Thromboplast Time 43.9 Blood Urea Nitrogen 45 Creatinine 5.06 Random Glucose 214 Total Protein 4.8 Albumin 1.3 Calcium Level 6.3 Phosphorus Level 6.6 Magnesium Level 2.1 Alkaline Phosphatase 63 Aspartate Amino Transf (AST/SGOT) 100 Alanine Aminotransferase (ALT/SGPT) 31 Total Bilirubin 0.9 Sodium Level 137 Potassium Level 4.9 Chloride Level 105 Carbon Dioxide Level 18.8 Anion Gap 13 Estimat Glomerular Filtration Rate 11 Protein Corrected Calcium 7.4 B-Type Natriuretic Peptide 571 Random Vancomycin Level 10.4 Test 09/28/17 12:34 Blood Gas Puncture Site ART LINE Blood Gas Patient Temperature 98.6 Blood Gas HCO3 18 Blood Gas Base Excess -7.9 Blood Gas Oxygen Saturation 94 Arterial Blood pH 7.26 Arterial Blood Partial Pressure CO2 41 Arterial Blood Partial Pressure O2 89 Arterial Blood Oxygen Content 11.7 Arterial Blood Carboxyhemoglobin 0.7 Arterial Blood Methemoglobin 1.6 Blood Gas Hemoglobin 8.8 Oxygen Delivery Device VENTILATOR Blood Gas Ventilator Setting PRVC/AC Blood Gas Inspired Oxygen 40 Date/Time Source Procedure Growth Status 09/27/17 01:40 Blood Peripheral Aerobic Blood Culture - Preliminary NO GROWTH IN 1 DAY Resulted 09/27/17 01:40 Blood Peripheral Anaerobic Blood Culture - Preliminary NO GROWTH IN 1 DAY Resulted 09/27/17 06:10 Sputum Endotracheal Gram Stain - Final Resulted 09/27/17 06:10 Sputum Culture - Preliminary S. Aureus Mrsa Gram Negative Yoshi Resulted 09/27/17 01:35 Urine Catheterized Urine Urine Culture - Preliminary NO GROWTH IN 24 HOURS. Resulted (Gregoria Daugherty) Result Diagram: 09/28/17 0345 09/28/17 0345 Imaging Last Impressions Chest X-Ray 09/28/17 0600 Signed Impressions: CONCLUSION: Probable mild pulmonary edema and slight bibasilar atelectasis and/or infiltrat e worse on the left. Head CT 09/27/17 0000 Signed Impressions: CONCLUSION: No acute intracranial abnormality demonstrated. (Gregoria Daugherty) Assessment and Plan Problem List: (1) Renal failure ICD Codes: N19 - Unspecified kidney failure Plan: His history predating his admission is not entirely clear. He came in with severe lactic acidosis and in renal failure. ARF likely related to shock, potentially septic. His SCr is rising and UOP decreasing. He is acidotic today requiring bicarb drip. I had a long discussion with his daughter, Ronda, today regarding the state of his renal functions. Even if dialysis were a short-term option, she states that she does not want to escalate his care any further including foregoing any dialytic intervention. She was advised that given his current status that this would likely be a terminal decision. She again verbalized understanding of this and said she still does not wish to pursue more aggressive care stating that he has been declining over the past few months and his quality of life was not great. From a renal perspective, there is little else that can be offered at this point in time. Please recall if needed. (2) Lactic acidemia ICD Codes: E87.2 - Acidosis (3) Severe sepsis ICD Codes: A41.9 - Sepsis, unspecified organism; R65.20 - Severe sepsis without septic shock Status: Resolved (Gregoria Daugherty) Assessment and Plan The exam, history, and the medical decision-making described in the above note were completed with the assistance of the LATASHA. I reviewed and agree with the findings presented. I attest that I had a [id number] encounter with the patient on the same day, and personally performed and documented my assessment and findings in the medical record. (Prince Vasquez MD) Gregoria Daugherty September 28, 2017 16:27 Prince Vasquez MD September 28, 2017 17:44
[2017-09-28 17:45] LABS: BICARBONATE 24.2 MEQ/L (21.0-32.0); CALCIUM 6.4 MG/DL (8.5-10.1); CREATININE 5.18 MG/DL (0.60-1.30)
[2017-09-28 18:03] LABS: TOTAL PROTEIN 5.1 GM/DL (6.4-8.2)
[2017-09-28 18:12] LABS: CALCIUM-PROTEIN CORRECTED 7.4 MG/DL (8.5-10.1)
[2017-09-28] MEDS: DEXTROSE 50% IN WATER 50 ML VIAL(D50) IV PUSH PRN ×2 (20:41→21:11)
[2017-09-28] MEDS: ATORVASTATIN 40 MG TAB PO SCH (20:54)
[2017-09-29] VITALS (18 sets, daily range): BP systolic 88–171; BP diastolic 50–86; PULSE 95–101; RESP 20–23; TEMP 97.5–98; O2SAT 95–100
[2017-09-29] MEDS: HYDROCORTISONE SOD SUCCINATE 100 MG VIAL IV PUSH SCH ×5 (00:10→23:46)
[2017-09-29] MEDS: SODIUM BICARBONATE 8.4% INJ 150 MEQ in DEXTROSE 5% IN WATE 1000ML INJ 850 ML IV SCH ×4 (01:22→13:35)
[2017-09-29] MEDS: fentaNYL DRIP 250 ML IV PRN ×2 (02:32→15:13)
[2017-09-29] MEDS: PIPERACIL-TAZO 4.5 GM PREMIX 100 ML IV SCH ×2 (03:16→09:12)
[2017-09-29] MEDS: CHLORHEXIDINE GLUCONATE 2 % 1 PACK (2 CLOTHS) TOP SCH (03:17)
[2017-09-29] MEDS: RESP: ALBUTEROL 2.5 MG/IPRATROPIUM 0.5 MG NEB (SCH) INH ×4 (03:30→20:58)
--- NOTE | 2017-09-29 04:53 | RADRPT ---
EXAM DATE: 09/29/2017 4:22 AM EDT AGE/SEX: 77 years / Male INDICATIONS: Short of breath. CLINICAL DATA: This is the patient's subsequent encounter. Patient reports that signs and symptoms h ave been present for 1 week and indicates a pain score of 0/10. MEDICAL/SURGICAL HISTORY: None. None. COMPARISON: [facility] [place], CHEST SINGLE AP, 09/28/2017. . FINDINGS: Lines and tubes have not changed. There is worsening of bilateral pulmonary edema since the prior exa m. Left lung base atelectasis and/or infiltrate is also seen. CONCLUSION: Slight worsening pulmonary edema. Left lung base atelectasis and/or infiltrate is also seen. Electronically signed by: Chema Franco MD 09/29/2017 4:51 AM EDT
[2017-09-29] MEDS: HEPARIN SODIUM - SQ 10,000 UNITS/ML VIAL SQ SCH (05:23)
[2017-09-29 05:28] LABS: AUTOMATED NEUTROPHIL # 15.4 TH/MM3 (1.8-7.7); BASOPHIL % 0.2 % (0.0-2.0); HEMATOCRIT 26.7 % (39.0-51.0); HEMOGLOBIN 8.5 GM/DL (13.0-17.0); LYMPH % 5.4 % (9.0-44.0); LYMPHOCYTE # 0.9 TH/MM3 (1.0-4.8); MEAN CELL VOLUME 86.5 FL (80.0-100.0); MEAN CORPUSCULAR HEMOGLOBIN 27.6 PG (27.0-34.0); MEAN CORPUSCULAR HGB CONC 31.9 % (32.0-36.0); MONO % 6.2 % (0.0-8.0); MONOCYTE # 1.1 TH/MM3 (0-0.9); NEUT % 88.2 % (16.0-70.0); PLATELET COUNT 31 TH/MM3 (150-450); RED BLOOD COUNT 3.09 MIL/MM3 (4.50-5.90); RED CELL DISTRIBUTION WIDTH 24.9 % (11.6-17.2); WHITE BLOOD COUNT 17.5 TH/MM3 (4.0-11.0)
[2017-09-29 05:51] LABS: ALBUMIN 1.1 GM/DL (3.4-5.0); BICARBONATE 23.5 MEQ/L (21.0-32.0); CALCIUM 5.9 MG/DL (8.5-10.1); CREATININE 5.71 MG/DL (0.60-1.30); MAGNESIUM 2.4 MG/DL (1.5-2.5); PHOSPHORUS 6.5 MG/DL (2.5-4.9); RANDOM VANCOMYCIN 22.5 COMMENT; TOTAL BILIRUBIN ADULT 1.1 MG/DL (0.2-1.0); TOTAL PROTEIN 4.9 GM/DL (6.4-8.2)
[2017-09-29 05:54] LABS: CALCIUM-PROTEIN CORRECTED 6.9 MG/DL (8.5-10.1)
[2017-09-29 08:43] LABS: BANDS 7 % (0-6); CORRECTED NUCLEATED RBC 38 /100 WBC (0-0); LYMPHOCYTES 5 % (9-44); MONOCYTES 6 % (0-8); NEUTROPHIL # MANUAL DIFF 15.6 TH/MM3 (1.8-7.7); NUCLEATED RED BLOOD CELL 38 (0-0); POLYS (SEG NEUTROPHILS) 82 % (16-70)
[2017-09-29 08:44] LABS: OVALOCYTES 1+ (NORMAL); TARGET CELLS 1+ (NORMAL)
[2017-09-29 08:45] LABS: ACANTHOCYTES OCC (NORMAL); KERATOCYTES OCC (NORMAL)
[2017-09-29 08:49] LABS: HOWELL-JOLLY BODIES PRESENT (NONE SEEN)
[2017-09-29 08:52] LABS: POLYCHROMASIA 2.6 % (0.0-1.9)
[2017-09-29] MEDS: DOCUSATE SODIUM 50 MG/SENNA 8.6 MG TAB PO SCH ×2 (09:00→20:04)
[2017-09-29] MEDS: TIOTROPIUM BROMIDE 18 MCG INH INH SCH (09:00)
[2017-09-29] MEDS: BUDESONIDE-FORMOTEROL 160/4.5 MCG INHALER INH SCH ×2 (09:00→20:05)
[2017-09-29] MEDS: DULoxetine HCl DR 60 MG CAP PO SCH (09:00)
[2017-09-29] MEDS: FAMOTIDINE 20 MG/2 ML VIAL IV PUSH SCH ×2 (09:11→20:04)
[2017-09-29] MEDS: FERROUS SULFATE 325 MG (65 MG ELEMENTAL IRON) TAB PO SCH (09:12)
[2017-09-29] MEDS: FENOFIBRATE 48 MG TAB PO SCH (09:13)
[2017-09-29] MEDS: ASPIRIN 81 MG CHEW TAB CHEW SCH (09:14)
[2017-09-29] MEDS: CHLORHEXIDINE 0.12% (ORAL KIT) 15 ML CUP MT SCH ×2 (09:14→20:03)
[2017-09-29] MEDS: SODIUM CHLORIDE 0.9% FLUSH 10 ML FLUSH IV FLUSH SCH ×2 (09:15→20:05)
[2017-09-29] MEDS ORDERED: [UNRECOGNIZED DRUG - REMARK] OTHER SCH (10:00)
--- NOTE | 2017-09-29 11:12 | HHI.CCPN ---
Subjective Remarks/Hospital Course 77-year-old gentleman currently a resident at [facility], apparently the patient asked for pain medication and was given a hydrocodone approximately 2 hours prior to admission. 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 911 was called, upon arrival EMS states that he was and respiratory distress with severe work of breathing and the patient required intubation emergently. Per chart documentation used 20 of etomidate of 4 mg of Versed to aid in sedation for the intubation. Subjective: 09/27:0747, discussed with radiologist placement of left subclavian line by emergency room department. Dr. Hendricks, discussed possibility of arterial placement of left subclavian line. ABGs obtained from subclavian line-noted venous PaO2 39. Left radial arterial line, placed PaO2 59. Patient continues on phenylephrine currently at 150 mcgs. 09/28: Late entry note. Patient seen at 12 PM. Leukocytosis worsening. MRSA in sputum but MDRO, infectious disease consulted. Patient noted with metabolic acidosis 1 amp sodium bicarbonate provided and infusion initiated. Patient continues on norepinephrine at 2 mcgs/min, phenylephrine has been weaned off. Cardiac index 2.7 cardiac output per Flotrach 5.0. 09/29: Patient in multisystem organ failure, hypoglycemic last night required 2 Amps of D50 patient continues on vasopressor support to maintain a MAP greater than 65 the patient currently is in acute renal failure no interventions plan discussion with family requests comfort care measures to be instituted in the near future. Family does not want dialysis, stating the patient has had a continuous decline. Palliative care medicine has been consulted, clarification regarding comfort care measures be instituted versus possible hospice care. Objective Vital Signs Date Time Temp Pulse Resp B/P (MAP) Pulse Ox O2 Delivery O2 Flow Rate FiO2 09/29/17 08:00 95 88/65 (73) 102/55 (71) 09/29/17 08:00 97.8 20 100 09/29/17 08:00 35 09/27/17 03:42 Venturi Mask Intake and Output 09/29/17 09/29/17 09/30/17 08:00 16:00 00:00 Intake Total 1317 ml Output Total 20 ml Balance 1297 ml Result Diagram: 09/29/17 0500 09/29/17 0500 Other Results Microbiology Date/Time Source Procedure Growth Status 09/27/17 01:35 Urine Catheterized Urine Urine Culture - Final NO GROWTH IN 48 HOURS. Complete 09/27/17 01:35 Urine Catheterized Urine Legionella Antigen - Final PRESUMPTIVE NEGATIVE FOR LEGIONELLA P... Complete 09/27/17 01:35 Urine Catheterized Urine Streptococcus pneumoniae Antigen (M - Final PRESUMPTIVE NEGATIVE FOR STREPTOCOCCU... Complete Laboratory Tests Test 09/28/17 12:34 09/29/17 05:23 Blood Gas Puncture Site ART LINE SHAYY Blood Gas Patient Temperature 98.6 98.6 Blood Gas HCO3 18 mmol/L (22-26) 21 mmol/L (22-26) Blood Gas Base Excess -7.9 mmol/L (-2-2) -3.5 mmol/L (-2-2) Blood Gas Oxygen Saturation 94 % (90-100) 94 % (90-100) Arterial Blood pH 7.26 (7.380-7.420) 7.33 (7.380-7.420) Arterial Blood Partial Pressure CO2 41 mmHg (38-42) 41 mmHg (38-42) Arterial Blood Partial Pressure O2 89 mmHg (61-120) 87 mmHg (61-120) Arterial Blood Oxygen Content 11.7 Vol % (12.0-20.0) 10.6 Vol % (12.0-20.0) Arterial Blood Carboxyhemoglobin 0.7 % (0-4) 0.9 % (0-4) Arterial Blood Methemoglobin 1.6 % (0-2) 1.7 % (0-2) Blood Gas Hemoglobin 8.8 G/DL (12.0-16.0) 7.9 G/DL (12.0-16.0) Oxygen Delivery Device VENTILATOR VENT Blood Gas Ventilator Setting PRVC/AC SEE COMMENTS Blood Gas Inspired Oxygen 40 % 40 % Imaging Last Impressions Chest X-Ray 09/28/17 0600 Signed Impressions: CONCLUSION: Probable mild pulmonary edema and slight bibasilar atelectasis and/or infiltrat e worse on the left. Head CT 09/27/17 0000 Signed Impressions: CONCLUSION: No acute intracranial abnormality demonstrated. Last 24 hours Impressions Chest X-Ray 09/27/17 0259 Signed Impressions: CONCLUSION: 1. There is a new left subclavian line. Based on its course, it could be arter ial and please confirm this is not the case clinically. 2. No pneumothorax. 3. Mild basilar consolidation and small left pleural effusion not significantl y changed. Chest X-Ray 09/27/17 0128 Signed Impressions: CONCLUSION: 1. Mild bibasilar consolidation and small left pleural effusion. 2. Appropriate endotracheal tube tip position. Objective Remarks GENERAL: This is a well-developed well-nourished critically ill-appearing male intubated and sedated SKIN: Warm and dry. HEAD: Atraumatic. Normocephalic. EYES: Pupils equal and round. No scleral icterus. No injection or drainage. ENT: No nasal bleeding or discharge. Mucous membranes pink and moist. NECK: Trachea midline. No JVD. CARDIOVASCULAR: Regular rate and rhythm. RESPIRATORY: No accessory muscle use. Clear to auscultation B/L. Breath sounds equal bilaterally. GASTROINTESTINAL: Abdomen soft, non-tender, nondistended. Hepatic and splenic margins not palpable. MUSCULOSKELETAL: Extremities without clubbing, cyanosis, or edema. No obvious deformities. NEUROLOGICAL: GCS 3 T. Prior to sedation spontaneous eye opening and spontaneous movement of extremities 4 Date of Insertion: September 27, 2017 Date of Insertion: September 27, 2017 Side: Left Location: Subclavian A/P Problem List: (1) Altered mental status, unspecified ICD Code: R41.82 - Altered mental status, unspecified (2) Acute hypoxemic respiratory failure ICD Code: J96.01 - Acute respiratory failure with hypoxia (3) Sepsis ICD Code: A41.9 - Sepsis, unspecified organism Status: Resolved Assessment and Plan Plan by systems: Neurologic: Acute metabolic encephalopathy 09/27 CT head-negative Neurochecks per ICU protocol Daily sedation vacation when clinically appropriate/hemodynamically stable Fentanyl infusion for ventilator synchrony Respiratory: Acute hypoxemic and hypercarbic respiratory failure COPD -09/27 intubated for airway protection -No weaning until neurologically improve -DuoNeb scheduled and as needed -09/27 ABG subclavian line-7.26/54/39/23/-2.2 -09/27 ABG left radial-7.2 9/48/59/22/-2.8-increased respiratory rate -Mechanical ventilation / -No CPAP trials until hemodynamically stable -Vent bundle -Chest x-ray 09/29-pulmonary edema -Broad-spectrum empiric antibiotics Cardiovascular: Septic shock Coronary artery disease Ischemic cardiomyopathy Congestive heart failure -Rule out acute coronary syndrome -Series of troponins and EKGs -Echo 06/2016-EF 30-35%, Mild TR -Aspirin for now -Patient currently on norepinephrine and vasopressin infusion to maintain MAP>65 -Maintain MAP greater than 65 -Add hydrocortisone 50 mg every 6 hours - 09/27/17 ECHO- EF 50-55%, mild MR - BNP 568 Renal: Acute renal failure -Maintain Darby -- Strict I/Os FEN/GI: Moderate protein calorie malnutrition Electrolyte derangement Metabolic acidosis Elevated creatinine -Patient received 3 L normal saline in the ED -Sodium bicarbonate infusion decreased to at 50 cc/hr -Initiate trickle feeds placed on hold, significant residual > 500cc -Hypocalcemia -Nephrology was initially consulted creatinine worsening now 5.9 patient with family no dialysis planned Heme/ID: Lactic acidemia Anemia H/O MDRO Leukocytosis Severe thrombocytopenia -Blood , urine cultures-NGTD - 09/27 sputum culture- MRSA -Lactate level increasing now 3.2 -Type and screen -Iron supplementation -Transfuse for hemoglobin less than 8 -Continue broad-spectrum empiric antibiotics-Vanco, Zosyn, azithromycin -Panculture 09/27 -De-escalate antibiotics per sensitivity and culture -Platelet count 31 Endocrine: Diabetes mellitus -Insulin sliding scale -Resume Lantus insulin when indicated Glucose monitoring per ICU protocol, low-dose regimen -- SSI Prophylaxis: GI Prophylaxis Famotidine BID DVT Prophylaxis -- SCDs Heparin SQ Lines: Peripheral IVs 2. Left subclavian line placed in the ED by attending 09/27 Dispo: Discussed with Ronda Quevedo,patient's daughter confirming no escalation of care, no dialysis. Plan for possible withdrawal/ comfort care measures , or possible Hospice. Palliative care is following and plan for F/U of recommendations my billing statement This patient remains critically ill with one or more organ systems which are or may become a threat to life. I have spent in excess of 35 minutes discontinuously in the care and management of this patient. This time is exclusive of procedures, and includes, but is not limited to, evaluation of the patient, review of the medical record, discussions with family, consultants, nursing staff, or respiratory therapy, and documentation in the medical record. Physician Heather Henley MD September 29, 2017 11:12
[2017-09-29] MEDS ORDERED: CALCIUM GLUCONATE INJ 2 GM in SODIUM CHLORIDE 0.9% INJ 100 ML IV ONE (11:30)
[2017-09-29] MEDS ORDERED: DEXTROSE 50% IN WATER 50 ML VIAL(D50) IV PUSH PRN (11:30)
[2017-09-29] MEDS ORDERED: GLUCAGON 1 MG/ML VIAL OTHER PRN (11:30)
--- NOTE | 2017-09-29 11:41 | PD.ID.CON ---
History of Present Illness Service ID Consult Requested By Reason for Consult Evaluation and Mment of Leucocytosis and pneumonia in setting of prior Cdiff. Primary Care Physician Mehran Cote MD Diagnoses: History of Present Illness Most of the history is from review of medical records. Mr. Garcia is a 77 years old male with a past medical history of coronary artery disease s/p cardiac stent placement, paroxysmal atrial fibrillation, ME, PVD, COPD with chronic bronchitis on home oxygen, hypertension, chronic kidney disease, depression, diabetes mellitus, GERD, C. difficile, MRSA and bladder cancer. Patient was brought to the ER on 09/27/17 from [facility] via EMS for further evaluation of unresponsiveness and respiratory distress. Patient was emergently intubated by EMS due to severe work of breathing. Patient ` last hospitalization was at [facility] in August, and he was evaluated and treated for acute bronchitis and right elbow olecranon bursitis. In the ED his vital signs were temperature 97.8, pulse 81, respiration 16, blood pressure 106/55, O2 saturation 98%. Laboratory workup revealed WBC 8.2, hemoglobin 8.0, hematocrit 26.4, platelet count 99, potassium 4.6, BUN/creatinine 49/4.77, lactic acid 11.3, calcium 8.8, AST 59, ALT 21, troponin less than 0.02, total protein 4.9, albumin 1.4, lipase 69, PT 14.7, INR 1.5. Chest x-ray revealed mild bibasilar consolidation and small left pleural effusion. Head CT revealed no acute intracranial abnormality. UA collected-culture indicated-negative for Legionella pneumophila and Streptococcus pneumoniae. ABG results on vent FiO2 100%-pH 7.4, PCO2 55, PO2 289, HCO3 25.Patient was started on pressors. Patient admitted under the care of critical care management for further evaluation and treatment. At the time of my evaluation patient is in the ICU intubated and sedated. Withdraws to noxious stimulation with bilateral lower extremities. Patient is on fentanyl infusion at 100 mcg/ hr and Vasopressin infusion at 0.04 units/ minute with SBP in the mid to upper 90s on arterial line readings. Per bedside RN Neosynephrine and Levophed infusion are used as needed and Levophed was restarted. Scant urine noted. ID consulted for evaluation and Mment of leucocytosis and pneumonia in setting of prior Cdiff. Review of Systems ROS Limitations: Intubated Past Family Social History Allergies: Coded Allergies: Sulfa (Sulfonamide Antibiotics) (Verified Allergy, Severe, Anaphylaxis, ) *MDRO Multi-Drug Resistant Organism (Verified Adverse Reaction, Unknown, ) MRSA (hand)-06/10/16 Past Medical History Coronary artery disease Hypertension Diabetes Chronic obstructive pulmonary disease with chronic bronchitis on home oxygen Bladder cancer Abscess/collection of right hand dorsum Past Surgical History Cardiac stent placement Incision and drainage of mass/collection to the right hand-06/10/2016 Reported Medications Reported Meds & Active Scripts Active Protonix (Pantoprazole Sodium) 20 Mg Tab 20 Mg PO DAILY 30 Days Lopressor (Metoprolol Tartrate) 50 Mg Tab 50 Mg PO Q12HR 30 Days 3-in-1 Bedside Toilet (Device) 1 Mis Mis 1 Ea .ROUTE DIRECTED Reported Novolog Inj (Insulin Aspart) 1,000 Unit/10 Ml Vial 0 SQ DIRECTED Sliding Scale as directed. Colace (Docusate Sodium) 100 Mg Capsule 100 Mg PO BID Ferrous Sulfate 325 Mg (65 Mg Iron) Tablet 325 Mg PO DAILY Atorvastatin (Atorvastatin Calcium) 40 Mg Tab 40 Mg PO HS Bumetanide 1 Mg Tab 1 Mg PO DAILY Duloxetine DR (Duloxetine HCl) 60 Mg Capdr 60 Mg PO DAILY Diphenhydramine (Diphenhydramine HCl) 25 Mg Cap 50 Mg PO Q6H PRN Fenofibrate 50 Mg Cap 100 Mg PO DAILY Lantus Inj (Insulin Glargine) 1,000 Unit/10 Ml Vial 10 Units SQ HS Spiriva Handihaler (Tiotropium Inh) 18 Mcg Cap 18 Mcg INH DAILY 1 capsule = 18 mcg Symbicort Inh (Budesonide/Formoterol Fumarate) 160-4.5 Mcg/Act Aero 2 Puff INH BID Proventil Hfa 6.7 GM Inh (Albuterol Sulfate) 90 Mcg/Act Aer 2 Puff INH QID Aspirin Children's (Aspirin) 81 Mg Chew 81 Mg CHEW DAILY Albuterol Neb (Albuterol Sulfate) 2.5 Mg/3 Ml Neb 2.5 Mg NEB Q6HR PRN Active Ordered Medications Current Medications Medications (Trade) Dose Ordered Sig/Mitchell Route Start Time Stop Time Status Last Admin Phenylephrine HCl 40 mg/Dextrose 500 ml @ 30 mls/hr TITRATE PRN IV 09/27/17 03:15 09/28/17 06:27 (Aspirin Chew) 81 mg DAILY CHEW 09/27/17 09:00 Future Hold (Lipitor) 40 mg HS PO 09/27/17 21:00 09/28/17 20:54 (Symbicort 160-4.5 Mcg Inh) 2 puff BID INH 09/27/17 09:00 (Benadryl) 50 mg Q6H PRN PO 09/27/17 04:30 (Cymbalta Dr) 60 mg DAILY PO 09/27/17 09:00 Future Hold 09/27/17 09:30 (Ferrous Sulfate) 325 mg DAILY PO 09/27/17 09:00 09/29/17 09:12 (Spiriva Inh) 18 mcg DAILY INH 09/27/17 09:00 (Tricor) 96 mg DAILY PO 09/27/17 09:00 09/29/17 09:13 (Tylenol) 650 mg Q6H PRN PO 09/27/17 04:45 (Ativan Inj) 1 mg Q1H PRN IV PUSH 09/27/17 04:45 09/27/17 06:07 (Zofran Odt) 4 mg Q6H PRN PO 09/27/17 04:45 (Duoneb Neb) 1 ampule Q6HR NEB INH 09/27/17 04:45 09/29/17 07:36 (Duoneb Neb) 1 ampule Q2HR NEB PRN INH 09/27/17 04:45 (Heparin Inj) 5,000 units Q8H SQ 09/27/17 06:00 Future Hold 09/27/17 21:46 ([facility]) 1 Q361D XX 09/27/17 04:45 (Chlorhexidine 2% Cloth) 3 pack Taper DAILY@04 TOP 09/28/17 04:00 09/24/18 03:59 09/29/17 03:17 (Chlorhexidine 2% Cloth) 3 pack UNSCH PRN TOP 09/27/17 04:45 (Debbie-Colace) 1 tab BID PO 09/27/17 09:00 09/28/17 20:54 (Milk Of Magnesia Liq) 30 ml Q12H PRN PO 09/27/17 04:45 (Senokot) 17.2 mg Q12H PRN PO 09/27/17 04:45 (Dulcolax Supp) 10 mg DAILY PRN RECTAL 09/27/17 04:45 (Lactulose Liq) 30 ml DAILY PRN PO 09/27/17 04:45 (Peridex 0.12% Liq) 15 ml BID@08,20 MT 09/27/17 08:00 09/29/17 09:14 (NS Flush) 2 ml UNSCH PRN IV FLUSH 09/27/17 04:45 (NS Flush) 2 ml BID IV FLUSH 09/27/17 09:00 09/29/17 09:15 Pharmacy Profile Note 0 ml @ 0 mls/hr UNSCH OTHER 09/27/17 04:45 Piperacillin Sod/ Tazobactam Sod 100 ml @ 200 mls/hr Q6H IV 09/27/17 10:00 09/29/17 09:12 (D50w (Vial) Inj) 50 ml UNSCH PRN IV PUSH 09/27/17 04:45 09/28/17 21:11 (Glucagon Inj) 1 mg UNSCH PRN OTHER 09/27/17 04:45 (NovoLIN R SUPPLEMENTAL SCALE) 1 ACHS SLIDING SCALE SQ 09/27/17 08:00 Future Hold 09/28/17 08:21 Fentanyl Citrate 250 ml @ 5 mls/hr TITRATE PRN IV 09/27/17 07:45 09/29/17 02:32 (Pepcid Inj) 10 mg Q12HR IV PUSH 09/27/17 09:00 09/29/17 09:11 Norepinephrine Bitartrate 250 ml @ 7.5 mls/hr TITRATE PRN IV 09/27/17 08:45 09/28/17 03:42 (Brethine Inj) 1 mg UNSCH PRN SQ 09/27/17 08:45 Vasopressin 40 units/Dextrose 100 ml @ 6 mls/hr [id number] IV 09/27/17 09:01 09/28/17 19:07 (SoluCORTEF INJ) 50 mg Q6HR IV PUSH 09/27/17 12:00 09/29/17 05:21 Sodium Bicarbonate 150 meq/Dextrose 1,000 ml @ 50 mls/hr Q20H IV 09/28/17 13:00 09/29/17 01:22 Vancomycin HCl 1000 mg/Sodium Chloride 250 ml @ 250 mls/hr ONCE ONCE IV 09/29/17 18:00 09/29/17 18:59 ([facility]) ENTER PATIENT'S HT I... Q30M OTHER 09/29/17 10:00 (D50w (Vial) Inj) 50 ml UNSCH PRN IV PUSH 09/29/17 11:30 (Glucagon Inj) 1 mg UNSCH PRN OTHER 09/29/17 11:30 (NovoLOG SUPPLEMENTAL SCALE) 1 Q4H SQ 09/29/17 12:00 Calcium Gluconate 2 gm/Sodium Chloride 120 ml @ 120 mls/hr ONCE ONCE IV 09/29/17 11:30 09/29/17 12:29 Family History Sister has alzheimers disease- unknown if she is now Mother and father of old age Social History Tobacco: History of smoking 1 pack per day for over 35 years Alcohol: History of alcohol consumption Prescription med abuse: None reported Illicits: None reported Patient is originally from [place]. He has lived in [place] and in in [place]. He moved to [place] for fdc to [place] over 20 years ago. 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 Patient was once and . He has 2 adult children, a daughter Ronda Quevedo and an estranged son Nirali. Is currently a resident at [facility]. Physical Exam Vital Signs Vital Signs Date Time Temp Pulse Resp B/P (MAP) Pulse Ox O2 Delivery O2 Flow Rate FiO2 09/29/17 11:39 100 35 09/29/17 08:00 95 88/65 (73) 102/55 (71) 09/29/17 08:00 95 09/29/17 08:00 97.8 95 20 88/65 (73) 100 102/55 (71) 09/29/17 08:00 35 09/29/17 07:36 100 35 09/29/17 06:00 95 09/29/17 04:00 96 102/60 (74) 93/50 (64) 09/29/17 04:00 40 09/29/17 04:00 96 09/29/17 04:00 97.5 96 23 102/60 (74) 100 93/50 (64) 09/29/17 03:30 100 40 09/29/17 02:00 98 09/29/17 00:03 96 40 09/29/17 00:00 97.7 96 20 98/64 (75) 95 116/60 (78) 09/29/17 00:00 96 09/29/17 00:00 96 98/64 (75) 116/60 (78) 09/29/17 00:00 40 09/28/17 22:10 101 116/58 09/28/17 22:00 102 09/28/17 21:10 99 132/62 09/28/17 20:10 94 121/60 09/28/17 20:00 97.9 92 23 93/66 (75) 96 100/55 (70) 09/28/17 20:00 40 09/28/17 20:00 92 93/66 (75) 100/55 (70) 09/28/17 20:00 92 09/28/17 19:55 95 40 09/28/17 19:07 94 104/53 09/28/17 18:00 94 09/28/17 16:00 92 09/28/17 16:00 92 105/59 (74) 109/56 (73) 09/28/17 16:00 40 09/28/17 16:00 97.9 92 29 105/59 (74) 68 109/56 (73) 09/28/17 15:22 96 40 09/28/17 14:00 86 09/28/17 12:00 97.6 83 20 110/71 (84) 100 123/61 (81) 09/28/17 12:00 83 110/71 (84) 123/61 (81) 09/28/17 12:00 83 09/28/17 12:00 40 Physical Exam GENERAL: Elderly ill appearing male patient, in no apparent distress. SKIN: Areas of ecchymosis, cool clammy skin. HEAD: Atraumatic. Normocephalic. No temporal or scalp tenderness. EYES: Pupils equal round and reactive. ENT: Intubated NECK: Trachea midline.Supple, nontender, no meningeal signs. CARDIOVASCULAR: HS audible. RESPIRATORY: AE decreased in the bases. GASTROINTESTINAL: Abdomen soft, non-tender, nondistended. MUSCULOSKELETAL: Extremities without clubbing, cyanosis, or edema. NEUROLOGICAL: Sedated Psych cooperative IV line sites with no e.o infection Laboratory Laboratory Tests Test 09/28/17 12:30 09/28/17 12:34 09/28/17 16:28 09/29/17 05:00 Blood Gas Puncture Site ART LINE Blood Gas Patient Temperature 98.6 Blood Gas HCO3 18 Blood Gas Base Excess -7.9 Blood Gas Oxygen Saturation 94 Arterial Blood pH 7.26 Arterial Blood Partial Pressure CO2 41 Arterial Blood Partial Pressure O2 89 Arterial Blood Oxygen Content 11.7 Arterial Blood Carboxyhemoglobin 0.7 Arterial Blood Methemoglobin 1.6 Blood Gas Hemoglobin 8.8 Oxygen Delivery Device VENTILATOR Blood Gas Ventilator Setting PRVC/AC Blood Gas Inspired Oxygen 40 Blood Urea Nitrogen 50 49 Creatinine 5.18 5.71 Random Glucose 228 327 Total Protein 5.1 4.9 Calcium Level 6.4 5.9 Sodium Level 137 135 Potassium Level 4.8 4.8 Chloride Level 99 95 Carbon Dioxide Level 24.2 23.5 Anion Gap 14 17 Estimat Glomerular Filtration Rate 11 10 Protein Corrected Calcium 7.4 6.9 White Blood Count 17.5 Red Blood Count 3.09 Hemoglobin 8.5 Hematocrit 26.7 Mean Corpuscular Volume 86.5 Mean Corpuscular Hemoglobin 27.6 Mean Corpuscular Hemoglobin Concent 31.9 Red Cell Distribution Width 24.9 Platelet Count 31 Mean Platelet Volume 10.0 Neutrophils (%) (Auto) 88.2 Lymphocytes (%) (Auto) 5.4 Monocytes (%) (Auto) 6.2 Eosinophils (%) (Auto) 0.0 Basophils (%) (Auto) 0.2 Neutrophils # (Auto) 15.4 Lymphocytes # (Auto) 0.9 Monocytes # (Auto) 1.1 Eosinophils # (Auto) 0.0 Basophils # (Auto) 0.0 CBC Comment AUTO DIFF Differential Total Cells Counted 100 Neutrophils % (Manual) 82 Band Neutrophils % 7 Lymphocytes % 5 Monocytes % 6 Neutrophils # (Manual) 15.6 Nucleated Red Blood Cells 38 Differential Comment FINAL DIFF MANUAL Platelet Estimate LOW Platelet Morphology Comment ENLARGED Polychromasia 2.6 Basophilic Stippling FAINT Target Cells 1+ Ovalocytes 1+ [place] Bodies PRESENT Acanthocytes OCC Keratocytes OCC Red Cell Morphology Comment Albumin 1.1 Phosphorus Level 6.5 Magnesium Level 2.4 Alkaline Phosphatase 60 Aspartate Amino Transf (AST/SGOT) 128 Alanine Aminotransferase (ALT/SGPT) 36 Total Bilirubin 1.1 Lactic Acid Level 3.2 B-Type Natriuretic Peptide 465 Random Vancomycin Level 22.5 Test 09/29/17 05:23 Blood Gas Puncture Site SHAYY Blood Gas Patient Temperature 98.6 Blood Gas HCO3 21 Blood Gas Base Excess -3.5 Blood Gas Oxygen Saturation 94 Arterial Blood pH 7.33 Arterial Blood Partial Pressure CO2 41 Arterial Blood Partial Pressure O2 87 Arterial Blood Oxygen Content 10.6 Arterial Blood Carboxyhemoglobin 0.9 Arterial Blood Methemoglobin 1.7 Blood Gas Hemoglobin 7.9 Oxygen Delivery Device VENT Blood Gas Ventilator Setting SEE COMMENTS Blood Gas Inspired Oxygen 40 Date/Time Source Procedure Growth Status 09/27/17 01:40 Blood Peripheral Aerobic Blood Culture - Preliminary NO GROWTH IN 2 DAYS Resulted 09/27/17 01:40 Blood Peripheral Anaerobic Blood Culture - Preliminary NO GROWTH IN 2 DAYS Resulted 09/27/17 06:10 Sputum Endotracheal Gram Stain - Final Resulted 09/27/17 06:10 Sputum Culture - Preliminary S. Aureus Mrsa Gram Negative Yoshi Resulted 09/27/17 01:35 Urine Catheterized Urine Urine Culture - Final NO GROWTH IN 48 HOURS. Complete Result Diagram: 09/29/17 0500 09/29/17 0500 Imaging Last Impressions Chest X-Ray 09/29/17 0600 Signed Impressions: CONCLUSION: Slight worsening pulmonary edema. Left lung base atelectasis and/or infiltrate is also seen. Head CT 09/27/17 0000 Signed Impressions: CONCLUSION: No acute intracranial abnormality demonstrated. Assessment and Plan Assessment and Plan Septic Shock (hypothermia, leucocytosis, hypotension, source PNA) Pneumonia in patient with recurrent admissions to hospital. Likely Health care associated PNA. MRSA pneumonia. Gram negative pneumonia H/o Cdiff. Acute resp failure on vent Acute renal failure oliguric. COPD acute exacerbation Thrombocytopenia like sepsis related. ? meds recs Continue Zosyn IV Recd one dose of Vanco IV yday. Check Random Vanco level later today. Follow cultures Follow clinically. dw Palliative care team: await legal document from [facility]. Roya Velez MD September 29, 2017 11:41
[2017-09-29] MEDS: INSULIN ASPART SUPPLEMENTAL SCALE SQ SCH ×3 (12:00→20:00)
--- NOTE | 2017-09-29 12:19 | HHI.NPPN ---
Subjective History of Present Illness 77-year-old gentleman currently a resident at [facility], apparently the patient asked for pain medication and was given a hydrocodone approximately 2 hours prior to admission. 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 911 was called, upon arrival EMS states that he was and respiratory distress with severe work of breathing and the patient required intubation emergently. Per chart documentation used 20 of etomidate of 4 mg of Versed to aid in sedation for the intubation. Interval History Patient still intubated. Not responding to simple commands or questions. Objective Data Data Vital Signs Date Time Temp Pulse Resp B/P (MAP) Pulse Ox O2 Delivery O2 Flow Rate FiO2 09/29/17 11:39 100 35 09/29/17 08:00 95 88/65 (73) 102/55 (71) 09/29/17 08:00 95 09/29/17 08:00 97.8 95 20 88/65 (73) 100 102/55 (71) 09/29/17 08:00 35 09/29/17 07:36 100 35 09/29/17 06:00 95 09/29/17 04:00 96 102/60 (74) 93/50 (64) 09/29/17 04:00 40 09/29/17 04:00 96 09/29/17 04:00 97.5 96 23 102/60 (74) 100 93/50 (64) 09/29/17 03:30 100 40 09/29/17 02:00 98 09/29/17 00:03 96 40 09/29/17 00:00 97.7 96 20 98/64 (75) 95 116/60 (78) 09/29/17 00:00 96 09/29/17 00:00 96 98/64 (75) 116/60 (78) 09/29/17 00:00 40 09/28/17 22:10 101 116/58 09/28/17 22:00 102 09/28/17 21:10 99 132/62 09/28/17 20:10 94 121/60 09/28/17 20:00 97.9 92 23 93/66 (75) 96 100/55 (70) 09/28/17 20:00 40 09/28/17 20:00 92 93/66 (75) 100/55 (70) 09/28/17 20:00 92 09/28/17 19:55 95 40 09/28/17 19:07 94 104/53 09/28/17 18:00 94 09/28/17 16:00 92 09/28/17 16:00 92 105/59 (74) 109/56 (73) 09/28/17 16:00 40 09/28/17 16:00 97.9 92 29 105/59 (74) 68 109/56 (73) 09/28/17 15:22 96 40 09/28/17 14:00 86 -: 09/29/17 0500 09/29/17 0500 Assessment/Plan Discussed Condition With: Patient Problem List: (1) Renal failure ICD Codes: N19 - Unspecified kidney failure Plan: His history predating his admission is not entirely clear. He came in with severe lactic acidosis and in renal failure. Established acute kidney injury with progressive azotemia and oliguria. Yesterday discussion with his daughter, Ronda, took place regarding the state of his renal functions. Even if dialysis were a short-term option, she states that she does not want to escalate his care any further including foregoing any dialytic intervention. She was advised that given his current status that this would likely be a terminal decision. She again verbalized understanding of this and said she still does not wish to pursue more aggressive care stating that he has been declining over the past few months and his quality of life was not great. Continue non-dialytic management as requested by the family which appears to be appropriate. Hospice is being considered given the patient's medical history and current condition this would appear to be an appropriate consideration. From a renal perspective, there is little else that can be offered at this point in time. We will sign off at this point. (2) Lactic acidemia ICD Codes: E87.2 - Acidosis (3) Severe sepsis ICD Codes: A41.9 - Sepsis, unspecified organism; R65.20 - Severe sepsis without septic shock Status: Resolved Prince Vasquez MD September 29, 2017 12:19
--- NOTE | 2017-09-29 12:28 | HHI.HCPN ---
Reason for visit a. To assist with evaluation and management of symptoms including:Shortness of breath, pain, debility b. To assist medical decision maker(s) with: better understanding of current medical conditions; weighing benefits/burdens of medical treatment options; making medical treatment decisions. Subjective/Interval History Follow-up visit medically necessary for symptom management and further clarification of goals. Patient remains intubated, sedated on mechanical ventilation. Patient continues on Vasopressin for hypotension and Levophed infusion restarted this morning to keep MAP greater than 65. Patient renal function worsening- BUN/ Creat 49/5.71 today. Urin output as low as 45ml in the past 24 hrs. Nephrology saw patient yesterday, per conversation with patient`s daughter Ronda Quevedo who states she is his DPOA, she does not want to proceed with hemodialysis. Patient was hypoglycemic with a bedside glucose of 68 mg/dL and required administration of D50 last night. Laboratory workup today revealing WBC 17.5, hemoglobin 8.5, hematocrit 26.7, platelet count 31, sodium 135, potassium 4.8, random glucose 387, calcium 5.9, phosphorus 6.5, lactic acid 3.2, BNP 465, total protein 4.9, albumin 1.1. Chest x-ray today revealing worsening pulmonary edema. Left lung base atelectasis and/or infiltrate is also seen. ABG results revealing pH 7.33, PCO2 41, PO2 87, HCO3 21, base excess -3.5 on vent settings PRVC/AC 500/16/IT 0.9/5/40% Brief conversation with patient`s daughter Ronda Quevedo this morning, who is waiting to fax DPOA papers as soon as her bank opens today in [place]. After receiving DPOA papers, palliative care will fax her exhibit B, community DNR and hospice consents to sign when she provides a fax number. Explored daughters conversations with patient prior to this hospitalization. Patient`s daughter mentions that all the times she spoke to patient this past year over the phone, he has expressed to her that his health has been progressively deteriorating and he has not been doing well. She mentions that patient has been in touch with her by telephone until 6 months ago when his phone was disconnected hence she was not aware that he was hospitalized again and was living in a correction facility. Patient`s daughter has talked to nephrology PA and she expressed that even if dialysis would be short term, she would not want patient to go through hemodialysis knowing his overall poor medical condition. She reiterates today not proceeding with hemodialysis or escalation of care. She states that patient has been progressively declining and she would not want to prolong his suffering. Ronda (DPOA) Patient`s daughter would like to proceed with compassionate withdrawal from life support and only wants comfort care through hospice services. Patient`s daughter requested hospice to be consulted. Attempted to contact patient`s son Nirali Denson using all telephone numbers listed on DPOA papers to update him on his fathers medical condition with no success. Numbers were either disconnected or were wrong numbers. Received a fax with DPOA papers which show that Ronda Quevedo (daughter) is the Health care agent and alternate health care agent is patient`s son Nirali Denson. Plan is to proceed with compassionate withdrawal of care and transition patient to comfort care through hospice services. Sent Exhibit B, [place] DNR and Hospice admission papers to patient`s daughter Ronda Quevedo to be completed and signed. Now awaiting Ronda to sign and fax back the papers. Case discussed with bedside RN, personal protection specialist Shavonne and Dr. Escobedo. . Family/friend interactions Telephone conversation with patient`s daughter who is in [place]. . Advance Directives Living Will: Copy in medical record Health Care Surrogate: Copy in medical record Durable Power of Harbormaster: Copy in medical record Advance Directive Specifics Date completed: [place] Advance directive: DURABLE POWER OF INTRAOPERATIVE NEURO TECH for healthcare in the living will-signed and notarized on March, . Health Care Surrogate(s): DPOA- Daughter- Ronda QuevedoLxjft-[phone] Alternate DPOA-Son- Nirali Denson- [phone] . Documented care wishes: See Copy of living will scanned in EMR . Objective Vital Signs Date Time Temp Pulse Resp B/P (MAP) Pulse Ox O2 Delivery O2 Flow Rate FiO2 09/29/17 11:39 100 35 09/29/17 08:00 95 88/65 (73) 102/55 (71) 09/29/17 08:00 95 09/29/17 08:00 97.8 95 20 88/65 (73) 100 102/55 (71) 09/29/17 08:00 35 09/29/17 07:36 100 35 5/29/18 06:00 95 09/29/17 04:00 96 102/60 (74) 93/50 (64) 09/29/17 04:00 40 09/29/17 04:00 96 09/29/17 04:00 97.5 96 23 102/60 (74) 100 93/50 (64) 09/29/17 03:30 100 40 09/29/17 02:00 98 09/29/17 00:03 96 40 09/29/17 00:00 97.7 96 20 98/64 (75) 95 116/60 (78) 09/29/17 00:00 96 09/29/17 00:00 96 98/64 (75) 116/60 (78) 09/29/17 00:00 40 09/28/17 22:10 101 116/58 09/28/17 22:00 102 09/28/17 21:10 99 132/62 09/28/17 20:10 94 121/60 09/28/17 20:00 97.9 92 23 93/66 (75) 96 100/55 (70) 09/28/17 20:00 40 09/28/17 20:00 92 93/66 (75) 100/55 (70) 09/28/17 20:00 92 09/28/17 19:55 95 40 09/28/17 19:07 94 104/53 09/28/17 18:00 94 09/28/17 16:00 92 09/28/17 16:00 92 105/59 (74) 109/56 (73) 09/28/17 16:00 40 09/28/17 16:00 97.9 92 29 105/59 (74) 68 109/56 (73) 09/28/17 15:22 96 40 09/28/17 14:00 86 Intake & Output 09/29/17 09/29/17 06:59 18:59 Intake Total 1517 ml Output Total 20 ml Balance 1497 ml IV Total 1420 ml Tube Feeding 37 ml Other 60 ml Output Urine Total 20 ml # Bowel Movements 0 Physical Exam CONSTITUTIONAL/GENERAL: This is a chronically ill elderly patient, intubated, sedated in no acute distress TUBES/LINES/DRAINS: ETT, PIV, left AC A-line, left subclavian central line, Darby catheter, SCDs, OG tube SKIN: Dry skin to BUE, skin tears to BUE covered with dressings, ecchymoses on upper extremities. Skin temperature cool to touch. Cyanotic nail beds to all 4 extremities. Petechiae noted to bilateral lower extremities. HEAD: Atraumatic. Normocephalic. EYES: Pupils equal and round and slightly reactive to light. Extraocular motions intact. No scleral icterus. Fundi not examined. ENT: Unable to assess hearing. No nasal bleeding or purulent drainage. Moist oral mucosa. NECK: Trachea midline. Supple, nontender. CARDIOVASCULAR: Regular rate and rhythm without murmurs, gallops, or rubs. No JVD. Peripheral pulses symmetric. RESPIRATORY/CHEST: Symmetric, unlabored respirations. Diminished lung sounds. No wheezes, rales, or rhonchi. GASTROINTESTINAL: Abdomen soft, non-tender, nondistended. Bowel sounds present. GENITOURINARY: Without palpable bladder distension. Darby catheter in place with scant urine output. MUSCULOSKELETAL: Extremities with cyanosis to nail beds, digits and edema. No joint tenderness or effusion noted. NEUROLOGICAL: Intubated and sedated on mechanical ventilator. On Fentanyl infusion. PSYCHIATRIC: Unable to assess, intubated and sedated. .. Diagnostic Tests Laboratory Laboratory Tests Test 09/27/17 01:35 09/27/17 02:35 09/27/17 04:28 09/27/17 05:50 White Blood Count 8.2 TH/MM3 (4.0-11.0) Red Blood Count 3.00 MIL/MM3 (4.50-5.90) Hemoglobin 8.0 GM/DL (13.0-17.0) Hematocrit 26.4 % (39.0-51.0) Mean Corpuscular Volume 87.9 FL (80.0-100.0) Mean Corpuscular Hemoglobin 26.7 PG (27.0-34.0) Mean Corpuscular Hemoglobin Concent 30.4 % (32.0-36.0) Red Cell Distribution Width 26.8 % (11.6-17.2) Platelet Count 99 TH/MM3 (150-450) Mean Platelet Volume 11.2 FL (7.0-11.0) Neutrophils (%) (Auto) 56.6 % (16.0-70.0) Lymphocytes (%) (Auto) 31.4 % (9.0-44.0) Monocytes (%) (Auto) 9.6 % (0.0-8.0) Eosinophils (%) (Auto) 1.4 % (0.0-4.0) Basophils (%) (Auto) 1.0 % (0.0-2.0) Neutrophils # (Auto) 4.6 TH/MM3 (1.8-7.7) Lymphocytes # (Auto) 2.6 TH/MM3 (1.0-4.8) Monocytes # (Auto) 0.8 TH/MM3 (0-0.9) Eosinophils # (Auto) 0.1 TH/MM3 (0-0.4) Basophils # (Auto) 0.1 TH/MM3 (0-0.2) CBC Comment AUTO DIFF Differential Comment AUTO DIFF CONFIRMED Platelet Estimate LOW (NORMAL) Platelet Morphology Comment NORMAL (NORMAL) Polychromasia 3.3 % (0.0-1.9) Target Cells 1+ (NORMAL) Ovalocytes 1+ (NORMAL) Acanthocytes OCC (NORMAL) Keratocytes OCC (NORMAL) Prothrombin Time 14.7 SEC (9.8-11.6) Prothromb Time International Ratio 1.5 RATIO Activated Partial Thromboplast Time 27.6 SEC (24.3-30.1) Urine Color YELLOW (YELLW/STRAW) Urine Turbidity CLEAR (CLEAR) Urine pH 5.0 (5.0-8.5) Urine Specific [place] 1.016 (1.002-1.035) Urine Protein NEG mg/dL (NEG-TRACE) Urine Glucose (UA) NEG mg/dL (NEG) Urine Ketones NEG mg/dL (NEG) Urine Occult Blood NEG (NEG) Urine Nitrite NEG (NEG) Urine Bilirubin NEG (NEG) Urine Urobilinogen LESS THAN 2.0 MG/DL (LESS Urine Leukocyte Esterase NEG (NEG) Urine RBC 1 /hpf (0-3) Urine WBC 1 /hpf (0-5) Urine Squamous Epithelial Cells 1 /hpf (0-5) Urine Bacteria RARE /hpf (NONE) Urine Hyaline Casts 2 /lpf (RARE) Microscopic Urinalysis Comment CATH-CULTURE IND Blood Urea Nitrogen 49 MG/DL (7-18) Creatinine 4.77 MG/DL (0.60-1.30) Random Glucose 103 MG/DL (74-106) Total Protein 4.9 GM/DL (6.4-8.2) Albumin 1.4 GM/DL (3.4-5.0) Calcium Level 6.8 MG/DL (8.5-10.1) Alkaline Phosphatase 68 U/L (45-117) Aspartate Amino Transf (AST/SGOT) 59 U/L (15-37) Alanine Aminotransferase (ALT/SGPT) 21 U/L (12-78) Total Bilirubin 0.8 MG/DL (0.2-1.0) Sodium Level 143 MEQ/L (136-145) Potassium Level 4.6 MEQ/L (3.5-5.1) Chloride Level 102 MEQ/L (98-107) Carbon Dioxide Level 24.7 MEQ/L (21.0-32.0) Anion Gap 16 MEQ/L (5-15) Estimat Glomerular Filtration Rate 12 ML/MIN (>89) Lactic Acid Level 11.3 mmol/L (0.4-2.0) 10.4 mmol/L (0.4-2.0) Protein Corrected Calcium 7.9 MG/DL (8.5-10.1) Total Creatine Kinase 86 U/L (39-308) Troponin I LESS THAN 0.02 NG/ML Lipase 69 U/L (73-393) Blood Gas Puncture Site RT RADIAL Blood Gas Patient Temperature 98.6 Blood Gas HCO3 25 mmol/L (22-26) Blood Gas Base Excess -1.3 mmol/L (-2-2) Blood Gas Oxygen Saturation 98 % (90-100) Arterial Blood pH 7.27 (7.380-7.420) Arterial Blood Partial Pressure CO2 55 mmHg (38-42) Arterial Blood Partial Pressure O2 289 mmHG (61-120) Arterial Blood Oxygen Content 10.8 Vol % (12.0-20.0) Arterial Blood Carboxyhemoglobin 0.9 % (0-4) Arterial Blood Methemoglobin 1.0 % (0-2) Blood Gas Hemoglobin 7.3 G/DL (12.0-16.0) Oxygen Delivery Device VENTILATOR Blood Gas Ventilator Setting Blood Gas Inspired Oxygen 100 % Nasal Screen MRSA (PCR) MRSA DETECTED (NOT DETECT) Test 09/27/17 07:40 09/27/17 07:55 09/27/17 08:00 09/27/17 08:35 Lactic Acid Level 3.5 mmol/L (0.4-2.0) Troponin I 0.03 NG/ML (0.02-0.05) Blood Gas Puncture Site CENTRAL LINE ART LINE Blood Gas Patient Temperature 98.6 98.6 Venous Blood pH 7.27 (7.360-7.400) Venous Blood Partial Pressure CO2 54 mmHg (44-48) Venous Blood Partial Pressure O2 39 mmHg (35-40) Venous Blood HCO3 24 mmol/L (22-26) Venous Blood Oxygen Saturation 59 % (70-76) Venous Blood Oxygen Content 5.9 Vol % (9.0-17.0) Venous Blood Base Excess -2.2 mmol/L (-2-2) Oxygen Delivery Device VENTILATOR VENTILATOR Blood Gas Ventilator Setting PRVC/AC500/16/5PEEP PRVC/AC 500/16/5PEEP Blood Gas Inspired Oxygen 40 % 40 % Blood Gas HCO3 23 mmol/L (22-26) Blood Gas Base Excess -2.8 mmol/L (-2-2) Blood Gas Oxygen Saturation 84 % (90-100) Arterial Blood pH 7.29 (7.380-7.420) Arterial Blood Partial Pressure CO2 48 mmHg (38-42) Arterial Blood Partial Pressure O2 59 mmHg (61-120) Arterial Blood Oxygen Content 8.6 Vol % (12.0-20.0) Arterial Blood Carboxyhemoglobin 1.0 % (0-4) Arterial Blood Methemoglobin 2.0 % (0-2) Blood Gas Hemoglobin 7.3 G/DL (12.0-16.0) Urine Eosinophils NONE SEEN /HPF (NONE SEEN) Urine Random Creatinine 235.9 MG/DL Urine Random Sodium 21 MEQ/L Test 09/27/17 10:10 09/27/17 13:05 09/27/17 14:50 09/27/17 18:04 Ammonia 84 MCMOL/L (11-32) B-Type Natriuretic Peptide 200 PG/ML (0-100) Lactic Acid Level 2.4 mmol/L (0.4-2.0) 3.1 mmol/L (0.4-2.0) Random Cortisol 119.9 MCG/DL Hemoglobin 9.3 GM/DL (13.0-17.0) Hematocrit 30.0 % (39.0-51.0) Hemoglobin A1c 6.6 % (4.3-6.0) Troponin I 0.02 NG/ML (0.02-0.05) Test 09/27/17 23:50 09/28/17 03:45 09/28/17 12:30 09/28/17 12:34 Lactic Acid Level 2.8 mmol/L (0.4-2.0) White Blood Count 18.7 TH/MM3 (4.0-11.0) Red Blood Count 3.16 MIL/MM3 (4.50-5.90) Hemoglobin 8.7 GM/DL (13.0-17.0) Hematocrit 27.7 % (39.0-51.0) Mean Corpuscular Volume 87.7 FL (80.0-100.0) Mean Corpuscular Hemoglobin 27.5 PG (27.0-34.0) Mean Corpuscular Hemoglobin Concent 31.3 % (32.0-36.0) Red Cell Distribution Width 24.3 % (11.6-17.2) Platelet Count 69 TH/MM3 (150-450) Mean Platelet Volume 11.3 FL (7.0-11.0) Neutrophils (%) (Auto) 89.8 % (16.0-70.0) Lymphocytes (%) (Auto) 5.7 % (9.0-44.0) Monocytes (%) (Auto) 4.1 % (0.0-8.0) Eosinophils (%) (Auto) 0.0 % (0.0-4.0) Basophils (%) (Auto) 0.4 % (0.0-2.0) Neutrophils # (Auto) 16.8 TH/MM3 (1.8-7.7) Lymphocytes # (Auto) 1.1 TH/MM3 (1.0-4.8) Monocytes # (Auto) 0.8 TH/MM3 (0-0.9) Eosinophils # (Auto) 0.0 TH/MM3 (0-0.4) Basophils # (Auto) 0.1 TH/MM3 (0-0.2) CBC Comment AUTO DIFF Differential Total Cells Counted 100 Neutrophils % (Manual) 60 % (16-70) Band Neutrophils % 34 % (0-6) Lymphocytes % 4 % (9-44) Monocytes % 2 % (0-8) Neutrophils # (Manual) 17.6 TH/MM3 (1.8-7.7) Nucleated Red Blood Cells 4 /100 WBC (0-0) Differential Comment FINAL DIFF MANUAL Platelet Estimate LOW (NORMAL) Platelet Morphology Comment NORMAL (NORMAL) Ovalocytes 1+ (NORMAL) Acanthocytes OCC (NORMAL) Keratocytes OCC (NORMAL) Red Cell Morphology Comment (NORMAL) Prothrombin Time 14.0 SEC (9.8-11.6) Prothromb Time International Ratio 1.4 RATIO Activated Partial Thromboplast Time 43.9 SEC (24.3-30.1) Blood Urea Nitrogen 45 MG/DL (7-18) Creatinine 5.06 MG/DL (0.60-1.30) Random Glucose 214 MG/DL (74-106) Total Protein 4.8 GM/DL (6.4-8.2) Albumin 1.3 GM/DL (3.4-5.0) Calcium Level 6.3 MG/DL (8.5-10.1) Phosphorus Level 6.6 MG/DL (2.5-4.9) Magnesium Level 2.1 MG/DL (1.5-2.5) Alkaline Phosphatase 63 U/L (45-117) Aspartate Amino Transf (AST/SGOT) 100 U/L (15-37) Alanine Aminotransferase (ALT/SGPT) 31 U/L (12-78) Total Bilirubin 0.9 MG/DL (0.2-1.0) Sodium Level 137 MEQ/L (136-145) Potassium Level 4.9 MEQ/L (3.5-5.1) Chloride Level 105 MEQ/L (98-107) Carbon Dioxide Level 18.8 MEQ/L (21.0-32.0) Anion Gap 13 MEQ/L (5-15) Estimat Glomerular Filtration Rate 11 ML/MIN (>89) Protein Corrected Calcium 7.4 MG/DL (8.5-10.1) B-Type Natriuretic Peptide 571 PG/ML (0-100) Random Vancomycin Level 10.4 COMMENT Blood Gas Puncture Site ART LINE Blood Gas Patient Temperature 98.6 Blood Gas HCO3 18 mmol/L (22-26) Blood Gas Base Excess -7.9 mmol/L (-2-2) Blood Gas Oxygen Saturation 94 % (90-100) Arterial Blood pH 7.26 (7.380-7.420) Arterial Blood Partial Pressure CO2 41 mmHg (38-42) Arterial Blood Partial Pressure O2 89 mmHg (61-120) Arterial Blood Oxygen Content 11.7 Vol % (12.0-20.0) Arterial Blood Carboxyhemoglobin 0.7 % (0-4) Arterial Blood Methemoglobin 1.6 % (0-2) Blood Gas Hemoglobin 8.8 G/DL (12.0-16.0) Oxygen Delivery Device VENTILATOR Blood Gas Ventilator Setting [facility]/AC Blood Gas Inspired Oxygen 40 % Test 09/28/17 16:28 09/29/17 05:00 09/29/17 05:23 Blood Urea Nitrogen 50 MG/DL (7-18) 49 MG/DL (7-18) Creatinine 5.18 MG/DL (0.60-1.30) 5.71 MG/DL (0.60-1.30) Random Glucose 228 MG/DL (74-106) 327 MG/DL (74-106) Total Protein 5.1 GM/DL (6.4-8.2) 4.9 GM/DL (6.4-8.2) Calcium Level 6.4 MG/DL (8.5-10.1) 5.9 MG/DL (8.5-10.1) Sodium Level 137 MEQ/L (136-145) 135 MEQ/L (136-145) Potassium Level 4.8 MEQ/L (3.5-5.1) 4.8 MEQ/L (3.5-5.1) Chloride Level 99 MEQ/L (98-107) 95 MEQ/L (98-107) Carbon Dioxide Level 24.2 MEQ/L (21.0-32.0) 23.5 MEQ/L (21.0-32.0) Anion Gap 14 MEQ/L (5-15) 17 MEQ/L (5-15) Estimat Glomerular Filtration Rate 11 ML/MIN (>89) 10 ML/MIN (>89) Protein Corrected Calcium 7.4 MG/DL (8.5-10.1) 6.9 MG/DL (8.5-10.1) White Blood Count 17.5 TH/MM3 (4.0-11.0) Red Blood Count 3.09 MIL/MM3 (4.50-5.90) Hemoglobin 8.5 GM/DL (13.0-17.0) Hematocrit 26.7 % (39.0-51.0) Mean Corpuscular Volume 86.5 FL (80.0-100.0) Mean Corpuscular Hemoglobin 27.6 PG (27.0-34.0) Mean Corpuscular Hemoglobin Concent 31.9 % (32.0-36.0) Red Cell Distribution Width 24.9 % (11.6-17.2) Platelet Count 31 TH/MM3 (150-450) Mean Platelet Volume 10.0 FL (7.0-11.0) Neutrophils (%) (Auto) 88.2 % (16.0-70.0) Lymphocytes (%) (Auto) 5.4 % (9.0-44.0) Monocytes (%) (Auto) 6.2 % (0.0-8.0) Eosinophils (%) (Auto) 0.0 % (0.0-4.0) Basophils (%) (Auto) 0.2 % (0.0-2.0) Neutrophils # (Auto) 15.4 TH/MM3 (1.8-7.7) Lymphocytes # (Auto) 0.9 TH/MM3 (1.0-4.8) Monocytes # (Auto) 1.1 TH/MM3 (0-0.9) Eosinophils # (Auto) 0.0 TH/MM3 (0-0.4) Basophils # (Auto) 0.0 TH/MM3 (0-0.2) CBC Comment AUTO DIFF Differential Total Cells Counted 100 Neutrophils % (Manual) 82 % (16-70) Band Neutrophils % 7 % (0-6) Lymphocytes % 5 % (9-44) Monocytes % 6 % (0-8) Neutrophils # (Manual) 15.6 TH/MM3 (1.8-7.7) Nucleated Red Blood Cells 38 /100 WBC (0-0) Differential Comment FINAL DIFF MANUAL Platelet Estimate LOW (NORMAL) Platelet Morphology Comment ENLARGED (NORMAL) Polychromasia 2.6 % (0.0-1.9) Basophilic Stippling FAINT (NORMAL) Target Cells 1+ (NORMAL) Ovalocytes 1+ (NORMAL) [place] Bodies PRESENT (NONE SEEN) Acanthocytes OCC (NORMAL) Keratocytes OCC (NORMAL) Red Cell Morphology Comment (NORMAL) Albumin 1.1 GM/DL (3.4-5.0) Phosphorus Level 6.5 MG/DL (2.5-4.9) Magnesium Level 2.4 MG/DL (1.5-2.5) Alkaline Phosphatase 60 U/L (45-117) Aspartate Amino Transf (AST/SGOT) 128 U/L (15-37) Alanine Aminotransferase (ALT/SGPT) 36 U/L (12-78) Total Bilirubin 1.1 MG/DL (0.2-1.0) Lactic Acid Level 3.2 mmol/L (0.4-2.0) B-Type Natriuretic Peptide 465 PG/ML (0-100) Random Vancomycin Level 22.5 COMMENT Blood Gas Puncture Site SHAYY Blood Gas Patient Temperature 98.6 Blood Gas HCO3 21 mmol/L (22-26) Blood Gas Base Excess -3.5 mmol/L (-2-2) Blood Gas Oxygen Saturation 94 % (90-100) Arterial Blood pH 7.33 (7.380-7.420) Arterial Blood Partial Pressure CO2 41 mmHg (38-42) Arterial Blood Partial Pressure O2 87 mmHg (61-120) Arterial Blood Oxygen Content 10.6 Vol % (12.0-20.0) Arterial Blood Carboxyhemoglobin 0.9 % (0-4) Arterial Blood Methemoglobin 1.7 % (0-2) Blood Gas Hemoglobin 7.9 G/DL (12.0-16.0) Oxygen Delivery Device VENT Blood Gas Ventilator Setting SEE COMMENTS Blood Gas Inspired Oxygen 40 % Result Diagram: 09/29/17 0500 09/29/17 0500 Microbiology Microbiology Date/Time Source Procedure Growth Status 09/27/17 01:40 Blood Peripheral Aerobic Blood Culture - Preliminary NO GROWTH IN 2 DAYS Resulted 09/27/17 01:40 Blood Peripheral Anaerobic Blood Culture - Preliminary NO GROWTH IN 2 DAYS Resulted 09/27/17 01:35 Blood Peripheral Aerobic Blood Culture - Preliminary NO GROWTH IN 2 DAYS Resulted 09/27/17 01:35 Blood Peripheral Anaerobic Blood Culture - Preliminary NO GROWTH IN 2 DAYS Resulted 09/27/17 06:10 Sputum Endotracheal Gram Stain - Final Resulted 09/27/17 06:10 Sputum Culture - Preliminary S. Aureus Mrsa Gram Negative Yoshi Resulted 09/27/17 01:35 Urine Catheterized Urine Urine Culture - Final NO GROWTH IN 48 HOURS. Complete 09/27/17 01:35 Urine Catheterized Urine Legionella Antigen - Final PRESUMPTIVE NEGATIVE FOR LEGIONELLA P... Complete 09/27/17 01:35 Urine Catheterized Urine Streptococcus pneumoniae Antigen (M - Final PRESUMPTIVE NEGATIVE FOR STREPTOCOCCU... Complete Imaging Last 24 hours Impressions Chest X-Ray 09/29/17 0600 Signed Impressions: CONCLUSION: Slight worsening pulmonary edema. Left lung base atelectasis and/or infiltrate is also seen. Procedures 09/27/17-intubation by EMS at longterm 09/27/17-left subclavian central line placement . Assessment and Plan Disease Oriented Problem List: (1) Sepsis (2) Acute hypoxemic respiratory failure (3) Acute kidney injury (4) Lactic acidemia (5) Coronary artery disease (6) Diabetes mellitus Symptom Scale: (1) Shortness of breath 0-10 Scale: Unable to quantify (2) Pain 0-10 Scale: Unable to quantify (3) Debility 0-10 Scale: Unable to quantify Comment: Progressive . Pertinent Non-Medical Issues Psychosocial:Patient is originally from [place]. He has lived in [place] and in in [place]. He moved to [place] for jail to [place] over 20 years ago. 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 Patient was once and . He has 2 adult children, a daughter Ronda Quevedo and an estranged son Nirali. Is currently a resident at [facility]. Spiritual: Patient is Bahai- Requesting visit Legal:Per daughter patient has completed DPOA, Living Will Ethical issues impacting care: None identified at this time . Important Contacts -Ronda Quevedo (daughter) [phone] ZaneSae (son-in-law) [phone] . Prognosis Mr. 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 difficile, MRSA and bladder cancer. Patient was brought to the ER on 09/27/17 from [facility] via EMS for further evaluation of unresponsiveness and respiratory distress. Patient was emergently intubated by EMS due to severe work of breathing. Clinical course complicated with worsening leukocytosis, hypotension requiring pressor support, renal failure. Given ongoing comorbidities, patient remains at high risk for further complications and decline. Prognosis is very poor. Family requesting compassionate withdrawal from life support. . Code Status: Alternative Code Plan PLAN: Legal decision maker: Patient is currently intubated, sedated on mechanical ventilator. Patient`s daughter Ronda Quevedo is the DPOA and is willing to participate in medical decision making. Goals: Spoke to patient's daughter Ronda Quevedo today. She faxed the DPOA papers. She reiterates today not proceeding with hemodialysis or escalation of care. She states that patient has been progressively declining and she would not want to prolong his suffering. Patient`s daughter requested hospice to be consulted. Plan is to proceed with compassionate withdrawal of care and transition patient to comfort care through hospice services. Sent Exhibit B, [place] DNR paper and Hospice admissions papers to be completed. Will wait form patient` s daughter Ronda to sign and send back the papers. CODE STATUS: Alternative Code. Intubation only, no CPR, no shock, no escalation of care. SYMPTOMS: * Shortness of breath: Patient has history of COPD with chronic bronchitis on home oxygen. Patient's chest x-ray revealed bibasilar consolidation and small left pleural effusion. Patient is currently intubated on mechanical ventilator with an FiO2 of 35%. Patient is on antibiotics and duonebs. Xray worsening pulmonary edema with left lung base atelectasis. No further recommendations. * Pain: Pain related to being bedbound status, invasive procedures. Fentanyl infusion increased to 200mcg/hr. Patient is not showing signs of pain. * Debility: Progressive. Patient has had multiple hospitalizations in the past 6 months. Was currently moving in a longterm. PT consulted. Family would like to proceed with compassionately withdraw from life support. Palliative care will continue to follow the patient during hospital course as condition evolves, to assist patient/decision-maker with understanding of their medical conditions, weighing benefits/burdens of treatment options, for clarification of goals of treatment. Additionally will assist with any symptoms of palliative concern. Radha Flores September 29, 2017 12:28
[2017-09-29] MEDS: DEXTROSE 50% IN WATER 50 ML VIAL(D50) IV PUSH PRN ×2 (12:52→17:24)
[2017-09-29] MEDS: VASOPRESSIN INJ 40 UNITS in DEXTROSE 5% IN WATER 100ML INJ 98 ML IV SCH ×2 (13:35)
[2017-09-29] MEDS: PIPERACIL-TAZO 2.25 GM PREMIX 50 ML IV SCH ×2 (15:13→20:03)
[2017-09-29 15:31] LABS: HEPARIN INDUCED PLATELET AB Weak Positive (NEGATIVE)
[2017-09-29] MEDS ORDERED: VANCOMYCIN 1,000 MG/NS 250 ML IV ONE ×2 (18:00)
[2017-09-29] MEDS: NOREPINEPHRINE-DEXTROSE DRIP 250 ML IV PRN (19:39)
[2017-09-29] MEDS: ATORVASTATIN 40 MG TAB PO SCH (20:04)
[2017-09-30] VITALS (15 sets, daily range): BP systolic 96–126; BP diastolic 56–72; PULSE 97–108; RESP 20; TEMP 97.3–97.9; O2SAT 0–100
[2017-09-30] MEDS: PIPERACIL-TAZO 2.25 GM PREMIX 50 ML IV SCH ×3 (02:04→15:51)
[2017-09-30] MEDS: INSULIN ASPART SUPPLEMENTAL SCALE SQ SCH ×5 (04:00→15:52)
[2017-09-30] MEDS: CHLORHEXIDINE GLUCONATE 2 % 1 PACK (2 CLOTHS) TOP SCH (04:00)
--- NOTE | 2017-09-30 04:07 | RADRPT ---
EXAM DATE: 09/30/2017 4:02 AM EDT AGE/SEX: 77 years / Male INDICATIONS: Short of breath. CLINICAL DATA: This is the patient's subsequent encounter. Patient reports that signs and symptoms h ave been present for 4 - 6 days and indicates a pain score of 0/10. MEDICAL/SURGICAL HISTORY: None. None. COMPARISON: C, CHEST SINGLE AP, 09/29/2017. . FINDINGS: ET tube and NG tube have not changed. Slight interstitial process is again seen in both lungs not sig nificantly changed. Left lung base atelectasis and/or infiltrate has not changed. Left subclavian fox e has not changed. CONCLUSION: No appreciable change. Electronically signed by: Chema Franco MD 09/30/2017 4:05 AM EDT
[2017-09-30] MEDS: RESP: ALBUTEROL 2.5 MG/IPRATROPIUM 0.5 MG NEB (SCH) INH ×2 (04:15→07:32)
[2017-09-30 05:05] LABS: AUTOMATED NEUTROPHIL # 16.2 TH/MM3 (1.8-7.7); BASOPHIL % 0.1 % (0.0-2.0); EOSINOPHIL % 0.1 % (0.0-4.0); HEMATOCRIT 28.1 % (39.0-51.0); HEMOGLOBIN 8.8 GM/DL (13.0-17.0); LYMPH % 7.2 % (9.0-44.0); LYMPHOCYTE # 1.3 TH/MM3 (1.0-4.8); MEAN CELL VOLUME 86.8 FL (80.0-100.0); MEAN CORPUSCULAR HEMOGLOBIN 27.3 PG (27.0-34.0); MEAN CORPUSCULAR HGB CONC 31.5 % (32.0-36.0); MEAN PLATELET VOLUME 8.4 FL (7.0-11.0); MONO % 3.6 % (0.0-8.0); MONOCYTE # 0.7 TH/MM3 (0-0.9); PLATELET COUNT 31 TH/MM3 (150-450); RED BLOOD COUNT 3.23 MIL/MM3 (4.50-5.90); RED CELL DISTRIBUTION WIDTH 25.6 % (11.6-17.2); WHITE BLOOD COUNT 18.2 TH/MM3 (4.0-11.0)
[2017-09-30] MEDS: HYDROCORTISONE SOD SUCCINATE 100 MG VIAL IV PUSH SCH ×3 (05:33→15:51)
[2017-09-30 05:53] LABS: BICARBONATE 24.7 MEQ/L (21.0-32.0); CALCIUM 6.2 MG/DL (8.5-10.1); CREATININE 6.44 MG/DL (0.60-1.30); RANDOM VANCOMYCIN 20.1 COMMENT
[2017-09-30 06:08] LABS: TOTAL PROTEIN 5.1 GM/DL (6.4-8.2)
[2017-09-30 06:11] LABS: CALCIUM-PROTEIN CORRECTED 7.1 MG/DL (8.5-10.1)
[2017-09-30] MEDS: fentaNYL DRIP 250 ML IV PRN (06:52)
[2017-09-30] MEDS: FENOFIBRATE 48 MG TAB PO SCH (08:07)
[2017-09-30] MEDS: VASOPRESSIN INJ 40 UNITS in DEXTROSE 5% IN WATER 100ML INJ 98 ML IV SCH ×2 (08:07)
[2017-09-30] MEDS: BUDESONIDE-FORMOTEROL 160/4.5 MCG INHALER INH SCH (08:08)
[2017-09-30] MEDS: DOCUSATE SODIUM 50 MG/SENNA 8.6 MG TAB PO SCH (08:08)
[2017-09-30] MEDS: FERROUS SULFATE 325 MG (65 MG ELEMENTAL IRON) TAB PO SCH (08:08)
[2017-09-30] MEDS: SODIUM CHLORIDE 0.9% FLUSH 10 ML FLUSH IV FLUSH SCH (08:08)
[2017-09-30] MEDS: FAMOTIDINE 20 MG/2 ML VIAL IV PUSH SCH (08:08)
[2017-09-30] MEDS: TIOTROPIUM BROMIDE 18 MCG INH INH SCH (08:09)
[2017-09-30] MEDS: CHLORHEXIDINE 0.12% (ORAL KIT) 15 ML CUP MT SCH (08:10)
[2017-09-30] MEDS: SODIUM BICARBONATE 8.4% INJ 150 MEQ in DEXTROSE 5% IN WATE 1000ML INJ 850 ML IV SCH ×2 (08:17)
[2017-09-30 09:14] LABS: BANDS 14 % (0-6); CORRECTED NUCLEATED RBC 32 /100 WBC (0-0); LYMPHOCYTES 16 % (9-44); MONOCYTES 8 % (0-8); NEUTROPHIL # MANUAL DIFF 13.8 TH/MM3 (1.8-7.7); NUCLEATED RED BLOOD CELL 32 (0-0); POLYS (SEG NEUTROPHILS) 62 % (16-70)
[2017-09-30 09:15] LABS: KERATOCYTES OCC (NORMAL)
--- NOTE | 2017-09-30 10:40 | HHI.HCPN ---
Reason for visit a. To assist with evaluation and management of symptoms including:Shortness of breath, pain, debility b. To assist medical decision maker(s) with: better understanding of current medical conditions; weighing benefits/burdens of medical treatment options; making medical treatment decisions. Subjective/Interval History Follow-up visit medically necessary for symptom management and clarification of goals. Patient seen and examined in [facility]. Patient remains intubated, sedated on mechanical ventilator. Patient is currently on vasopressin 0.04 U/min. Levophed weaned off. ABG results today revealing pH 7.39, PCO2 41, PCO2 60, HCO3 24, base excess -0.5. Patient's FiO2 increased to 50%. Laboratory workup today revealing WBC 8.2, hemoglobin 8.8, hematocrit 28.1, platelet count 31, sodium 134, potassium 5.2, BUN/creatinine 58/6.44, estimated GFR 8, random glucose 315, calcium 6.2, total protein 5.1. Patient oliguric, report from bedside RN of 15 mL's in the past 12 hours. Chest x-ray today not showing much change still showing left lung base atelectasis and/or infiltrate. Patient is weeping edema and his started mottling to bilateral lower extremities and bilateral hands. Call placed to patient's daughter, with no response. Called patient's son in law (Zane Quevedo). Updated him on patient's current medical conditions, including worsening renal failure. Per patient`s son-in-law, patient`s daughter has not changed goals of care, she still want to proceed with compassionate withdrawal from life support. Patient's son-in-law planning on taking withdrawal papers to his for her to sign and then fax them to Palliative. Conversation with patient`s daughter Ronad Quevedo (DPOA) at 1428hrs over the phone. Updated her on patient`s medical status and worsening kidney function. Ronda confirmed that she has just received Exhibit papers from her and she will complete, sign them and fax them to palliative care. She has made patient a no code, do not resuscitate, do not intubate. Patient`s daughter would like patient to be kept comfortable after compassionately withdrawing from life support. Received fax from patient`s with a signed [place] DNR, Exhibit B consent to withdrawal/withholding life prolonging procedures or measures and some of hospice consents from patient`s daughter Ronda Quevedo. Telephone call to patient`s son-in-law Zane Quevedo confirming that palliative care received signed consents , DNR and some of hospice consents. Some of the hospice consents that require assuming financial responsibility were not signed because patient`s daughter does not accept any financial responsibility. Patient `s son-in-law mentioned that family want to proceed with compassionate withdrawal from life support. Family does not want withdrawing patient to be held up due to missing hospice papers. Family mentions that patient was not taoist but are open to a magazine worker visiting with patient if possible at time of withdrawal of support. 1700hrs, Hr Specialist Sonia at bedside. Patient premedicated in preparation for compassionate withdrawal from life support. . Family/friend interactions Multiple telephone conversations with patient`s son-in-law Zane Quevedo and patient`s daughter Ronda in coordinating signing of withdrawal papers. . Advance Directives Living Will: Copy in medical record Health Care Surrogate: Copy in medical record Durable Power of Diamond Expert: Copy in medical record Advance Directive Specifics Date completed: [place] Advance directive: DURABLE POWER OF LAMP ASSEMBLER for healthcare in the living will-signed and notarized on March, . Health Care Surrogate(s): DPOA- Daughter- Ronda QuevedoHmdmt-[phone] Alternate DPOA-Son- Nirali Denson- [phone] . Documented care wishes: See Copy of living will scanned in EMR . Objective Vital Signs Date Time Temp Pulse Resp B/P (MAP) Pulse Ox O2 Delivery O2 Flow Rate FiO2 09/30/17 08:07 106 110/57 09/30/17 08:00 106 09/30/17 08:00 50 09/30/17 08:00 97.9 106 20 108/56 (73) 95 119/61 (80) 09/30/17 08:00 106 108/56 (73) 119/61 (80) 09/30/17 07:33 96 50 09/30/17 06:00 100 09/30/17 04:15 98 35 09/30/17 04:00 35 09/30/17 04:00 100 09/30/17 04:00 97.6 100 20 110/68 (82) 93 104/59 (74) 09/30/17 04:00 100 110/68 (82) 104/59 (74) 09/30/17 02:53 98 102/56 09/30/17 02:00 97 09/30/17 00:21 98 120/64 09/30/17 00:12 100 35 09/30/17 00:00 35 09/30/17 00:00 97.4 98 20 116/58 (77) 99 96/56 (69) 09/30/17 00:00 98 116/58 (77) 96/56 (69) 09/30/17 00:00 98 09/29/17 23:54 98 81/51 09/29/17 23:30 99 111/62 09/29/17 22:00 100 09/29/17 21:37 101 113/61 09/29/17 20:58 99 35 09/29/17 20:00 97.8 99 20 109/63 (78) 99 121/63 (82) 09/29/17 20:00 99 09/29/17 20:00 99 117/57 (77) 121/63 (82) 09/29/17 20:00 35 09/29/17 19:39 100 121/63 09/29/17 18:00 101 09/29/17 16:00 98.0 100 20 121/67 (85) 98 129/65 (86) 09/29/17 16:00 100 09/29/17 16:00 100 121/67 (85) 129/65 (86) 09/29/17 16:00 35 09/29/17 15:10 97 35 09/29/17 14:00 98 09/29/17 13:35 100 128/62 09/29/17 12:00 100 110/71 (84) 128/64 (85) 09/29/17 12:00 100 09/29/17 12:00 97.8 100 20 110/71 (84) 97 128/64 (85) 09/29/17 12:00 35 09/29/17 11:39 100 35 Intake & Output 09/30/17 09/30/17 07:00 19:00 Intake Total 576 ml Output Total 15 ml Balance 561 ml IV Total 350 ml Tube Feeding 106 ml Other 120 ml Output Urine Total 15 ml # Bowel Movements 0 Physical Exam CONSTITUTIONAL/GENERAL: This is a chronically ill elderly patient, intubated, sedated in no acute distress TUBES/LINES/DRAINS: ETT, PIV, left AC A-line, left subclavian central line, Darby catheter, SCDs, OG tube SKIN: Dry skin to BUE, skin tears to BUE covered with dressings, ecchymoses on upper extremities. Skin temperature cool to touch. Weeping edema to BUE. Mottling to bilateral upper and lower extremities. HEAD: Atraumatic. Normocephalic. EYES: Pupils equal and round and slightly reactive to light. Extraocular motions intact. No scleral icterus. Fundi not examined. ENT: Unable to assess hearing. No nasal bleeding or purulent drainage. Moist oral mucosa. NECK: Trachea midline. Supple, nontender. CARDIOVASCULAR: Regular rate and rhythm without murmurs, gallops, or rubs. No JVD. Faint pedal pulses RESPIRATORY/CHEST: Symmetric, unlabored respirations. Diminished lung sounds. No wheezes, rales, or rhonchi. GASTROINTESTINAL: Abdomen soft, non-tender, nondistended. Hypoactive BS. GENITOURINARY: Without palpable bladder distension. Darby catheter in place with scant urine output. MUSCULOSKELETAL: Extremities mottling, weeping edema to BLE. No joint tenderness or effusion noted. NEUROLOGICAL: Intubated and sedated on mechanical ventilator. On Fentanyl infusion. PSYCHIATRIC: Unable to assess, intubated and sedated. .. Diagnostic Tests Laboratory Laboratory Tests Test 09/27/17 10:10 09/27/17 13:05 09/27/17 14:50 09/27/17 18:04 Ammonia 84 MCMOL/L (11-32) B-Type Natriuretic Peptide 200 PG/ML (0-100) Lactic Acid Level 2.4 mmol/L (0.4-2.0) 3.1 mmol/L (0.4-2.0) Random Cortisol 119.9 MCG/DL Hemoglobin 9.3 GM/DL (13.0-17.0) Hematocrit 30.0 % (39.0-51.0) Hemoglobin A1c 6.6 % (4.3-6.0) Troponin I 0.02 NG/ML (0.02-0.05) Test 09/27/17 23:50 5/28/18 03:45 09/28/17 12:30 09/28/17 12:34 Lactic Acid Level 2.8 mmol/L (0.4-2.0) White Blood Count 18.7 TH/MM3 (4.0-11.0) Red Blood Count 3.16 MIL/MM3 (4.50-5.90) Hemoglobin 8.7 GM/DL (13.0-17.0) Hematocrit 27.7 % (39.0-51.0) Mean Corpuscular Volume 87.7 FL (80.0-100.0) Mean Corpuscular Hemoglobin 27.5 PG (27.0-34.0) Mean Corpuscular Hemoglobin Concent 31.3 % (32.0-36.0) Red Cell Distribution Width 24.3 % (11.6-17.2) Platelet Count 69 TH/MM3 (150-450) Mean Platelet Volume 11.3 FL (7.0-11.0) Neutrophils (%) (Auto) 89.8 % (16.0-70.0) Lymphocytes (%) (Auto) 5.7 % (9.0-44.0) Monocytes (%) (Auto) 4.1 % (0.0-8.0) Eosinophils (%) (Auto) 0.0 % (0.0-4.0) Basophils (%) (Auto) 0.4 % (0.0-2.0) Neutrophils # (Auto) 16.8 TH/MM3 (1.8-7.7) Lymphocytes # (Auto) 1.1 TH/MM3 (1.0-4.8) Monocytes # (Auto) 0.8 TH/MM3 (0-0.9) Eosinophils # (Auto) 0.0 TH/MM3 (0-0.4) Basophils # (Auto) 0.1 TH/MM3 (0-0.2) CBC Comment AUTO DIFF Differential Total Cells Counted 100 Neutrophils % (Manual) 60 % (16-70) Band Neutrophils % 34 % (0-6) Lymphocytes % 4 % (9-44) Monocytes % 2 % (0-8) Neutrophils # (Manual) 17.6 TH/MM3 (1.8-7.7) Nucleated Red Blood Cells 4 /100 WBC (0-0) Differential Comment FINAL DIFF MANUAL Platelet Estimate LOW (NORMAL) Platelet Morphology Comment NORMAL (NORMAL) Ovalocytes 1+ (NORMAL) Acanthocytes OCC (NORMAL) Keratocytes OCC (NORMAL) Red Cell Morphology Comment (NORMAL) Prothrombin Time 14.0 SEC (9.8-11.6) Prothromb Time International Ratio 1.4 RATIO Activated Partial Thromboplast Time 43.9 SEC (24.3-30.1) Blood Urea Nitrogen 45 MG/DL (7-18) Creatinine 5.06 MG/DL (0.60-1.30) Random Glucose 214 MG/DL (74-106) Total Protein 4.8 GM/DL (6.4-8.2) Albumin 1.3 GM/DL (3.4-5.0) Calcium Level 6.3 MG/DL (8.5-10.1) Phosphorus Level 6.6 MG/DL (2.5-4.9) Magnesium Level 2.1 MG/DL (1.5-2.5) Alkaline Phosphatase 63 U/L (45-117) Aspartate Amino Transf (AST/SGOT) 100 U/L (15-37) Alanine Aminotransferase (ALT/SGPT) 31 U/L (12-78) Total Bilirubin 0.9 MG/DL (0.2-1.0) Sodium Level 137 MEQ/L (136-145) Potassium Level 4.9 MEQ/L (3.5-5.1) Chloride Level 105 MEQ/L (98-107) Carbon Dioxide Level 18.8 MEQ/L (21.0-32.0) Anion Gap 13 MEQ/L (5-15) Estimat Glomerular Filtration Rate 11 ML/MIN (>89) Protein Corrected Calcium 7.4 MG/DL (8.5-10.1) B-Type Natriuretic Peptide 571 PG/ML (0-100) Random Vancomycin Level 10.4 COMMENT Heparin-Induced Platelet Ab (Brenda) Weak Positive (NEGATIVE) HIPA Patient Optical Density 0.368 O.D. (0.000-0.300) Blood Gas Puncture Site ART LINE Blood Gas Patient Temperature 98.6 Blood Gas HCO3 18 mmol/L (22-26) Blood Gas Base Excess -7.9 mmol/L (-2-2) Blood Gas Oxygen Saturation 94 % (90-100) Arterial Blood pH 7.26 (7.380-7.420) Arterial Blood Partial Pressure CO2 41 mmHg (38-42) Arterial Blood Partial Pressure O2 89 mmHg (61-120) Arterial Blood Oxygen Content 11.7 Vol % (12.0-20.0) Arterial Blood Carboxyhemoglobin 0.7 % (0-4) Arterial Blood Methemoglobin 1.6 % (0-2) Blood Gas Hemoglobin 8.8 G/DL (12.0-16.0) Oxygen Delivery Device VENTILATOR Blood Gas Ventilator Setting PRVC/AC Blood Gas Inspired Oxygen 40 % Test 09/28/17 16:28 09/29/17 05:00 09/29/17 05:23 09/30/17 04:40 Blood Urea Nitrogen 50 MG/DL (7-18) 49 MG/DL (7-18) 58 MG/DL (7-18) Creatinine 5.18 MG/DL (0.60-1.30) 5.71 MG/DL (0.60-1.30) 6.44 MG/DL (0.60-1.30) Random Glucose 228 MG/DL (74-106) 327 MG/DL (74-106) 315 MG/DL (74-106) Total Protein 5.1 GM/DL (6.4-8.2) 4.9 GM/DL (6.4-8.2) 5.1 GM/DL (6.4-8.2) Calcium Level 6.4 MG/DL (8.5-10.1) 5.9 MG/DL (8.5-10.1) 6.2 MG/DL (8.5-10.1) Sodium Level 137 MEQ/L (136-145) 135 MEQ/L (136-145) 134 MEQ/L (136-145) Potassium Level 4.8 MEQ/L (3.5-5.1) 4.8 MEQ/L (3.5-5.1) 5.2 MEQ/L (3.5-5.1) Chloride Level 99 MEQ/L (98-107) 95 MEQ/L (98-107) 90 MEQ/L (98-107) Carbon Dioxide Level 24.2 MEQ/L (21.0-32.0) 23.5 MEQ/L (21.0-32.0) 24.7 MEQ/L (21.0-32.0) Anion Gap 14 MEQ/L (5-15) 17 MEQ/L (5-15) 19 MEQ/L (5-15) Estimat Glomerular Filtration Rate 11 ML/MIN (>89) 10 ML/MIN (>89) 8 ML/MIN (>89) Protein Corrected Calcium 7.4 MG/DL (8.5-10.1) 6.9 MG/DL (8.5-10.1) 7.1 MG/DL (8.5-10.1) White Blood Count 17.5 TH/MM3 (4.0-11.0) 18.2 TH/MM3 (4.0-11.0) Red Blood Count 3.09 MIL/MM3 (4.50-5.90) 3.23 MIL/MM3 (4.50-5.90) Hemoglobin 8.5 GM/DL (13.0-17.0) 8.8 GM/DL (13.0-17.0) Hematocrit 26.7 % (39.0-51.0) 28.1 % (39.0-51.0) Mean Corpuscular Volume 86.5 FL (80.0-100.0) 86.8 FL (80.0-100.0) Mean Corpuscular Hemoglobin 27.6 PG (27.0-34.0) 27.3 PG (27.0-34.0) Mean Corpuscular Hemoglobin Concent 31.9 % (32.0-36.0) 31.5 % (32.0-36.0) Red Cell Distribution Width 24.9 % (11.6-17.2) 25.6 % (11.6-17.2) Platelet Count 31 TH/MM3 (150-450) 31 TH/MM3 (150-450) Mean Platelet Volume 10.0 FL (7.0-11.0) 8.4 FL (7.0-11.0) Neutrophils (%) (Auto) 88.2 % (16.0-70.0) 89.0 % (16.0-70.0) Lymphocytes (%) (Auto) 5.4 % (9.0-44.0) 7.2 % (9.0-44.0) Monocytes (%) (Auto) 6.2 % (0.0-8.0) 3.6 % (0.0-8.0) Eosinophils (%) (Auto) 0.0 % (0.0-4.0) 0.1 % (0.0-4.0) Basophils (%) (Auto) 0.2 % (0.0-2.0) 0.1 % (0.0-2.0) Neutrophils # (Auto) 15.4 TH/MM3 (1.8-7.7) 16.2 TH/MM3 (1.8-7.7) Lymphocytes # (Auto) 0.9 TH/MM3 (1.0-4.8) 1.3 TH/MM3 (1.0-4.8) Monocytes # (Auto) 1.1 TH/MM3 (0-0.9) 0.7 TH/MM3 (0-0.9) Eosinophils # (Auto) 0.0 TH/MM3 (0-0.4) 0.0 TH/MM3 (0-0.4) Basophils # (Auto) 0.0 TH/MM3 (0-0.2) 0.0 TH/MM3 (0-0.2) CBC Comment AUTO DIFF AUTO DIFF Differential Total Cells Counted 100 100 Neutrophils % (Manual) 82 % (16-70) 62 % (16-70) Band Neutrophils % 7 % (0-6) 14 % (0-6) Lymphocytes % 5 % (9-44) 16 % (9-44) Monocytes % 6 % (0-8) 8 % (0-8) Neutrophils # (Manual) 15.6 TH/MM3 (1.8-7.7) 13.8 TH/MM3 (1.8-7.7) Nucleated Red Blood Cells 38 /100 WBC (0-0) 32 /100 WBC (0-0) Differential Comment FINAL DIFF MANUAL FINAL DIFF MANUAL Platelet Estimate LOW (NORMAL) LOW (NORMAL) Platelet Morphology Comment ENLARGED (NORMAL) NORMAL (NORMAL) Polychromasia 2.6 % (0.0-1.9) Basophilic Stippling FAINT (NORMAL) MOD (NORMAL) Target Cells 1+ (NORMAL) Ovalocytes 1+ (NORMAL) Knott[place] Bodies PRESENT (NONE SEEN) Acanthocytes OCC (NORMAL) Keratocytes OCC (NORMAL) OCC (NORMAL) Red Cell Morphology Comment (NORMAL) (NORMAL) Albumin 1.1 GM/DL (3.4-5.0) Phosphorus Level 6.5 MG/DL (2.5-4.9) Magnesium Level 2.4 MG/DL (1.5-2.5) Alkaline Phosphatase 60 U/L (45-117) Aspartate Amino Transf (AST/SGOT) 128 U/L (15-37) Alanine Aminotransferase (ALT/SGPT) 36 U/L (12-78) Total Bilirubin 1.1 MG/DL (0.2-1.0) Lactic Acid Level 3.2 mmol/L (0.4-2.0) B-Type Natriuretic Peptide 465 PG/ML (0-100) Random Vancomycin Level 22.5 COMMENT 20.1 COMMENT Blood Gas Puncture Site SHAYY Blood Gas Patient Temperature 98.6 Blood Gas HCO3 21 mmol/L (22-26) Blood Gas Base Excess -3.5 mmol/L (-2-2) Blood Gas Oxygen Saturation 94 % (90-100) Arterial Blood pH 7.33 (7.380-7.420) Arterial Blood Partial Pressure CO2 41 mmHg (38-42) Arterial Blood Partial Pressure O2 87 mmHg (61-120) Arterial Blood Oxygen Content 10.6 Vol % (12.0-20.0) Arterial Blood Carboxyhemoglobin 0.9 % (0-4) Arterial Blood Methemoglobin 1.7 % (0-2) Blood Gas Hemoglobin 7.9 G/DL (12.0-16.0) Oxygen Delivery Device VENT Blood Gas Ventilator Setting SEE COMMENTS Blood Gas Inspired Oxygen 40 % Test 09/30/17 05:51 Blood Gas Puncture Site ART LINE Blood Gas Patient Temperature 98.6 Blood Gas HCO3 24 mmol/L (22-26) Blood Gas Base Excess -0.5 mmol/L (-2-2) Blood Gas Oxygen Saturation 87 % (90-100) Arterial Blood pH 7.39 (7.380-7.420) Arterial Blood Partial Pressure CO2 41 mmHg (38-42) Arterial Blood Partial Pressure O2 60 mmHg (61-120) Arterial Blood Oxygen Content 12.7 Vol % (12.0-20.0) Arterial Blood Carboxyhemoglobin 0.9 % (0-4) Arterial Blood Methemoglobin 1.6 % (0-2) Blood Gas Hemoglobin 10.4 G/DL (12.0-16.0) Oxygen Delivery Device VENTILATOR Blood Gas Ventilator Setting SEE COMMENT Blood Gas Inspired Oxygen 35 % Result Diagram: 09/30/170 09/30/17 0440 Imaging Last 24 hours Impressions Chest X-Ray 09/30/17 0600 Signed Impressions: CONCLUSION: No appreciable change. Procedures 09/27/17-intubation by EMS at correction 09/27/17-left subclavian central line placement . Assessment and Plan Disease Oriented Problem List: (1) Sepsis (2) Acute hypoxemic respiratory failure (3) Acute kidney injury (4) Lactic acidemia (5) Coronary artery disease (6) Diabetes mellitus Symptom Scale: (1) Shortness of breath 0-10 Scale: Unable to quantify (2) Pain 0-10 Scale: Unable to quantify (3) Debility 0-10 Scale: Unable to quantify Comment: Progressive . Pertinent Non-Medical Issues Psychosocial:Patient is originally from [place]. He has lived in [place] and in in [place]. He moved to [place] for long-term to [place] over 20 years ago. 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 Patient was once and . He has 2 adult children, a daughter Ronda Quevedo and an estranged son Nirali. Is currently a resident at [facility]. Spiritual: Patient is Yazidi- Requesting visit Legal:Per daughter patient has completed DPOA, Living Will Ethical issues impacting care: None identified at this time . Important Contacts -Ronda Quevedo (daughter) [phone] ZaneSae (son-in-law) [phone] . Prognosis Mr. 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 difficile, MRSA and bladder cancer. Patient was brought to the ER on 09/27/17 from [facility] via EMS for further evaluation of unresponsiveness and respiratory distress. Patient was emergently intubated by EMS due to severe work of breathing. Clinical course complicated with worsening leukocytosis, hypotension requiring pressor support, renal failure. Given ongoing comorbidities, patient remains at high risk for further complications and decline. Prognosis is very poor. Family requesting compassionate withdrawal from life support. . Code Status: No Code Plan PLAN: Legal decision maker: Patient is currently intubated, sedated on mechanical ventilator. Patient`s daughter Ronda Quevedo is the DPOA and is willing to participate in medical decision making. Goals: Signed Consent to withdrawal/withholding of life-prolonging procedures or measures and [place] DNR received from patient`s daughter Ronda. Some of the hospice consents that require assuming financial responsibility were not signed because patient`s daughter does not accept any financial responsibility. Patient`s son-in-law mentioned that family want to proceed with compassionate withdrawal from life support. Family does not want withdrawing patient to be held up due to missing hospice papers. Family mentions that patient was not taoist but are open to a magazine worker visiting with patient if possible at time of withdrawal of support. 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 Patient's chest x-ray revealed bibasilar consolidation and small left pleural effusion. pO2 on ABG results 60, FIO2 increased to 50% from 35% . Patient is on antibiotics and duonebs. No further recommendations. * Pain: Pain related to being bedbound status, invasive procedures. Fentanyl infusion increased to 100mcg/hr. Patient is not showing signs of pain. * Debility: Progressive. Patient has had multiple hospitalizations in the past 6 months. Was currently moving in a correction. PT consulted. Family would like to proceed with compassionately withdraw from life support. Palliative care will continue to follow the patient during hospital course as condition evolves, to assist patient/decision-maker with understanding of their medical conditions, weighing benefits/burdens of treatment options, for clarification of goals of treatment. Additionally will assist with any symptoms of palliative concern. Attestation To help prompt me to consider important information that might be impacting today's encounter and assessment, information from prior notes written by myself or my colleagues may have been "brought forward" into today's note. My signature on this note, however, is an attestation that I personally performed the exam, history, and/or decision-making noted today, and, unless otherwise indicated, the interactions with patient, family, and staff as well as the review of records all occurred today. I also attest that the listed assessment and stated plan reflect my best clinical judgment today based on the combination of historical information, prior notes, and today's exam/ interactions. When time spent is documented, it refers only to time spent today by the signer, or if indicated, combined time spent today by collaborating physician/nurse practitioner. Radha Flores September 30, 2017 10:40
--- NOTE | 2017-09-30 10:46 | HHI.CCPN ---
Subjective Remarks/Hospital Course 77-year-old gentleman currently a resident at [facility], apparently the patient asked for pain medication and was given a hydrocodone approximately 2 hours prior to admission. Then upon be asking to go use the bathroom and ask for assistance the STORE RECEIVING CLERK noticed that he was slumped over and did not seem to be responsive. 911 was called, upon arrival EMS states that he was and respiratory distress with severe work of breathing and the patient required intubation emergently. Per chart documentation used 20 of etomidate of 4 mg of Versed to aid in sedation for the intubation. Subjective: 09/27:0747, discussed with radiologist placement of left subclavian line by emergency room department. Dr. Hendricks, discussed possibility of arterial placement of left subclavian line. ABGs obtained from subclavian line-noted venous PaO2 39. Left radial arterial line, placed PaO2 59. Patient continues on phenylephrine currently at 150 mcgs. 09/28: Late entry note. Patient seen at 12 PM. Leukocytosis worsening. MRSA in sputum but MDRO, infectious disease consulted. Patient noted with metabolic acidosis 1 amp sodium bicarbonate provided and infusion initiated. Patient continues on norepinephrine at 2 mcgs/min, phenylephrine has been weaned off. Cardiac index 2.7 cardiac output per Flotrach 5.0. 09/29: Patient in multisystem organ failure, hypoglycemic last night required 2 Amps of D50 patient continues on vasopressor support to maintain a MAP greater than 65 the patient currently is in acute renal failure no interventions plan discussion with family requests comfort care measures to be instituted in the near future. Family does not want dialysis, stating the patient has had a continuous decline. Palliative care medicine has been consulted, clarification regarding comfort care measures be instituted versus possible hospice care. 09/30: No acute events overnight. I contacted Ms. Jessika Quevedo patient's daughter , and plan for initiation of comfort care measures to be initiated per palliative care team. Objective Vital Signs Date Time Temp Pulse Resp B/P (MAP) Pulse Ox O2 Delivery O2 Flow Rate FiO2 09/30/17 10:00 108 09/30/17 08:07 110/57 09/30/17 08:00 50 09/30/17 08:00 97.9 20 95 09/27/17 03:42 Venturi Mask Intake and Output 09/30/17 09/30/17 10/01/17 08:00 16:00 00:00 Intake Total 526 ml Output Total 15 ml Balance 511 ml Result Diagram: 09/30/17 0440 09/30/17 0440 Other Results Laboratory Tests Test 09/30/17 05:51 Blood Gas Puncture Site ART LINE Blood Gas Patient Temperature 98.6 Blood Gas HCO3 24 mmol/L (22-26) Blood Gas Base Excess -0.5 mmol/L (-2-2) Blood Gas Oxygen Saturation 87 % (90-100) Arterial Blood pH 7.39 (7.380-7.420) Arterial Blood Partial Pressure CO2 41 mmHg (38-42) Arterial Blood Partial Pressure O2 60 mmHg (61-120) Arterial Blood Oxygen Content 12.7 Vol % (12.0-20.0) Arterial Blood Carboxyhemoglobin 0.9 % (0-4) Arterial Blood Methemoglobin 1.6 % (0-2) Blood Gas Hemoglobin 10.4 G/DL (12.0-16.0) Oxygen Delivery Device VENTILATOR Blood Gas Ventilator Setting SEE COMMENT Blood Gas Inspired Oxygen 35 % Imaging Last Impressions Chest X-Ray 09/28/17 0600 Signed Impressions: CONCLUSION: Probable mild pulmonary edema and slight bibasilar atelectasis and/or infiltrat e worse on the left. Head CT 09/27/17 0000 Signed Impressions: CONCLUSION: No acute intracranial abnormality demonstrated. Last 24 hours Impressions Chest X-Ray 09/27/17 0259 Signed Impressions: CONCLUSION: 1. There is a new left subclavian line. Based on its course, it could be arter ial and please confirm this is not the case clinically. 2. No pneumothorax. 3. Mild basilar consolidation and small left pleural effusion not significantl y changed. Chest X-Ray 09/27/17 0128 Signed Impressions: CONCLUSION: 1. Mild bibasilar consolidation and small left pleural effusion. 2. Appropriate endotracheal tube tip position. Objective Remarks GENERAL: This is a well-developed well-nourished critically ill-appearing male intubated and sedated SKIN: Warm and dry. HEAD: Atraumatic. Normocephalic. EYES: Pupils equal and round. No scleral icterus. No injection or drainage. ENT: No nasal bleeding or discharge. Mucous membranes pink and moist. NECK: Trachea midline. No JVD. CARDIOVASCULAR: Regular rate and rhythm. RESPIRATORY: No accessory muscle use. Clear to auscultation B/L. Breath sounds equal bilaterally. GASTROINTESTINAL: Abdomen soft, non-tender, nondistended. Hepatic and splenic margins not palpable. MUSCULOSKELETAL: Extremities without clubbing, cyanosis, or edema. No obvious deformities. NEUROLOGICAL: GCS 3 T. Prior to sedation spontaneous eye opening and spontaneous movement of extremities 4 Date of Insertion: September 27, 2017 Date of Insertion: September 27, 2017 Side: Left Location: Subclavian A/P Problem List: (1) Altered mental status, unspecified ICD Code: R41.82 - Altered mental status, unspecified (2) Acute hypoxemic respiratory failure ICD Code: J96.01 - Acute respiratory failure with hypoxia (3) Sepsis ICD Code: A41.9 - Sepsis, unspecified organism Status: Resolved Assessment and Plan Plan by systems: Neurologic: Acute metabolic encephalopathy 09/27 CT head-negative Neurochecks per ICU protocol Daily sedation vacation when clinically appropriate/hemodynamically stable Fentanyl infusion for ventilator synchrony Respiratory: Acute hypoxemic and hypercarbic respiratory failure COPD -09/27 intubated for airway protection -No weaning until neurologically improve -DuoNeb scheduled and as needed -09/27 ABG subclavian line-7.26/54/39/23/-2.2 -09/27 ABG left radial-7.2 9/48/59/22/-2.8-increased respiratory rate -Vent bundle -Chest x-ray 09/29-pulmonary edema -Broad-spectrum empiric antibiotics continued Cardiovascular: Septic shock Coronary artery disease Ischemic cardiomyopathy Congestive heart failure -Rule out acute coronary syndrome -Series of troponins and EKGs -Echo 06/2016-EF 30-35%, Mild TR -Aspirin for now -Patient currently on norepinephrine and vasopressin infusion to maintain MAP>65 -Maintain MAP greater than 65 -Add hydrocortisone 50 mg every 6 hours - 09/27/17 ECHO- EF 50-55%, mild MR Renal: Acute renal failure -Maintain Darby -- Strict I/Os FEN/GI: Moderate protein calorie malnutrition Electrolyte derangement Metabolic acidosis Elevated creatinine -Patient received 3 L normal saline in the ED -Sodium bicarbonate at 50 cc/hr -Initiate trickle feeds placed on hold, significant residual > 500cc -Hypocalcemia -Nephrology was initially consulted creatinine worsening now 5.9 patient with family no dialysis planned Heme/ID: Lactic acidemia Anemia H/O MDRO Leukocytosis Severe thrombocytopenia -Blood , urine cultures-NGTD - 09/27 sputum culture- MRSA -Type and screen -Iron supplementation -Transfuse for hemoglobin less than 8 -Continue broad-spectrum empiric antibiotics-Vanco, Zosyn, azithromycin -Panculture 09/27 -De-escalate antibiotics per sensitivity and culture -Platelet count 31 Endocrine: Diabetes mellitus -Insulin sliding scale -Resume Lantus insulin when indicated Glucose monitoring per ICU protocol, low-dose regimen -- SSI Prophylaxis: GI Prophylaxis Famotidine BID DVT Prophylaxis -- SCDs Heparin SQ Lines: Peripheral IVs 2. Left subclavian line placed in the ED by attending 09/27 Dispo: Discussed with Ms. Clifton, palliative care [employer] team member plan for possible withdrawal/ comfort care measures . my billing statement This patient remains critically ill with one or more organ systems which are or may become a threat to life. I have spent in excess of 30 minutes discontinuously in the care and management of this patient. This time is exclusive of procedures, and includes, but is not limited to, evaluation of the patient, review of the medical record, discussions with family, consultants, nursing staff, or respiratory therapy, and documentation in the medical record. Physician Heather Henley MD September 30, 2017 10:46
--- NOTE | 2017-09-30 10:47 | HHI.IDPN ---
Subjective Subjective Remarks Mr. Garcia is a 77 years old male with a past medical history of coronary artery disease s/p cardiac stent placement, paroxysmal atrial fibrillation, [place], PVD, COPD with chronic bronchitis on home oxygen, hypertension, chronic kidney disease, depression, diabetes mellitus, GERD, C. difficile, MRSA and bladder cancer. Patient was brought to the ER on 09/27/17 from [facility] via EMS for further evaluation of unresponsiveness and respiratory distress. Patient was emergently intubated by EMS due to severe work of breathing. Patient ` last hospitalization was at [facility] in August, and he was evaluated and treated for acute bronchitis and right elbow olecranon bursitis. In the ED his vital signs were temperature 97.8, pulse 81, respiration 16, blood pressure 106/55, O2 saturation 98%. Laboratory workup revealed WBC 8.2, hemoglobin 8.0, hematocrit 26.4, platelet count 99, potassium 4.6, BUN/creatinine 49/4.77, lactic acid 11.3, calcium 8.8, AST 59, ALT 21, troponin less than 0.02, total protein 4.9, albumin 1.4, lipase 69, PT 14.7, INR 1.5. Chest x-ray revealed mild bibasilar consolidation and small left pleural effusion. Head CT revealed no acute intracranial abnormality. UA collected-culture indicated-negative for Legionella pneumophila and Streptococcus pneumoniae. ABG results on vent FiO2 100%-pH 7.4, PCO2 55, PO2 289, HCO3 25.Patient was started on pressors. Patient admitted under the care of critical care management for further evaluation and treatment. At the time of my evaluation patient is in the ICU intubated and sedated. Withdraws to noxious stimulation with bilateral lower extremities. Patient is on fentanyl infusion at 100 mcg/ hr and Vasopressin infusion at 0.04 units/ minute with SBP in the mid to upper 90s on arterial line readings. Per bedside RN Neosynephrine and Levophed infusion are used as needed and Levophed was restarted. Scant urine noted. ID consulted for evaluation and Mment of leucocytosis and pneumonia in setting of prior Cdiff. Overnight events reviewed Off pressors. UO minimal Cr worsening. Bluish mottling of skin noted UE and LE. No response to verbal or painful stimuli. No rash No diarrhea Antibiotics Zosyn IV Lines Line sites with no e.o infection Past Medical History Past Medical History Coronary artery disease Hypertension Diabetes Chronic obstructive pulmonary disease with chronic bronchitis on home oxygen Bladder cancer Abscess/collection of right hand dorsum Past Surgical History Cardiac stent placement Incision and drainage of mass/collection to the right hand-06/10/2016 Allergies: Coded Allergies: Sulfa (Sulfonamide Antibiotics) (Verified Allergy, Severe, Anaphylaxis, ) *MDRO Multi-Drug Resistant Organism (Verified Adverse Reaction, Unknown, ) MRSA (hand)-06/10/16 Objective . Vital Signs Date Time Temp Pulse Resp B/P (MAP) Pulse Ox O2 Delivery O2 Flow Rate FiO2 09/30/17 10:00 108 09/30/17 08:07 106 110/57 09/30/17 08:00 106 09/30/17 08:00 50 09/30/17 08:00 97.9 106 20 108/56 (73) 95 119/61 (80) 09/30/17 08:00 106 108/56 (73) 119/61 (80) 09/30/17 07:33 96 50 09/30/17 06:00 100 09/30/17 04:15 98 35 09/30/17 04:00 35 09/30/17 04:00 100 09/30/17 04:00 97.6 100 20 110/68 (82) 93 104/59 (74) 09/30/17 04:00 100 110/68 (82) 104/59 (74) 09/30/17 02:53 98 102/56 09/30/17 02:00 97 09/30/17 00:21 98 120/64 09/30/17 00:12 100 35 09/30/17 00:00 35 09/30/17 00:00 97.4 98 20 116/58 (77) 99 96/56 (69) 09/30/17 00:00 98 116/58 (77) 96/56 (69) 09/30/17 00:00 98 09/29/17 23:54 98 81/51 09/29/17 23:30 99 111/62 09/29/17 22:00 100 09/29/17 21:37 101 113/61 09/29/17 20:58 99 35 09/29/17 20:00 97.8 99 20 109/63 (78) 99 121/63 (82) 09/29/17 20:00 99 09/29/17 20:00 99 117/57 (77) 121/63 (82) 09/29/17 20:00 35 09/29/17 19:39 100 121/63 09/29/17 18:00 101 09/29/17 16:00 98.0 100 20 121/67 (85) 98 129/65 (86) 09/29/17 16:00 100 09/29/17 16:00 100 121/67 (85) 129/65 (86) 09/29/17 16:00 35 09/29/17 15:10 97 35 09/29/17 14:00 98 09/29/17 13:35 100 128/62 09/29/17 12:00 100 110/71 (84) 128/64 (85) 09/29/17 12:00 100 09/29/17 12:00 97.8 100 20 110/71 (84) 97 128/64 (85) 09/29/17 12:00 35 09/29/17 11:39 100 35 . Laboratory Tests Test 09/29/17 05:00 09/30/17 04:40 White Blood Count 17.5 TH/MM3 18.2 TH/MM3 Red Blood Count 3.09 MIL/MM3 3.23 MIL/MM3 Hemoglobin 8.5 GM/DL 8.8 GM/DL Hematocrit 26.7 % 28.1 % Mean Corpuscular Volume 86.5 FL 86.8 FL Mean Corpuscular Hemoglobin 27.6 PG 27.3 PG Mean Corpuscular Hemoglobin Concent 31.9 % 31.5 % Red Cell Distribution Width 24.9 % 25.6 % Platelet Count 31 TH/MM3 31 TH/MM3 Mean Platelet Volume 10.0 FL 8.4 FL Neutrophils (%) (Auto) 88.2 % 89.0 % Lymphocytes (%) (Auto) 5.4 % 7.2 % Monocytes (%) (Auto) 6.2 % 3.6 % Eosinophils (%) (Auto) 0.0 % 0.1 % Basophils (%) (Auto) 0.2 % 0.1 % Neutrophils # (Auto) 15.4 TH/MM3 16.2 TH/MM3 Lymphocytes # (Auto) 0.9 TH/MM3 1.3 TH/MM3 Monocytes # (Auto) 1.1 TH/MM3 0.7 TH/MM3 Eosinophils # (Auto) 0.0 TH/MM3 0.0 TH/MM3 Basophils # (Auto) 0.0 TH/MM3 0.0 TH/MM3 CBC Comment AUTO DIFF AUTO DIFF Differential Total Cells Counted 100 100 Neutrophils % (Manual) 82 % 62 % Band Neutrophils % 7 % 14 % Lymphocytes % 5 % 16 % Monocytes % 6 % 8 % Neutrophils # (Manual) 15.6 TH/MM3 13.8 TH/MM3 Nucleated Red Blood Cells 38 /100 WBC 32 /100 WBC Differential Comment FINAL DIFF MANUAL FINAL DIFF MANUAL Platelet Estimate LOW LOW Platelet Morphology Comment ENLARGED NORMAL Polychromasia 2.6 % Basophilic Stippling FAINT MOD Target Cells 1+ Ovalocytes 1+ [place] Bodies PRESENT Acanthocytes OCC Keratocytes OCC OCC Red Cell Morphology Comment Laboratory Tests Test 09/28/17 16:28 09/29/17 05:00 09/30/17 04:40 Blood Urea Nitrogen 50 MG/DL 49 MG/DL 58 MG/DL Creatinine 5.18 MG/DL 5.71 MG/DL 6.44 MG/DL Random Glucose 228 MG/DL 327 MG/DL 315 MG/DL Total Protein 5.1 GM/DL 4.9 GM/DL 5.1 GM/DL Calcium Level 6.4 MG/DL 5.9 MG/DL 6.2 MG/DL Sodium Level 137 MEQ/L 135 MEQ/L 134 MEQ/L Potassium Level 4.8 MEQ/L 4.8 MEQ/L 5.2 MEQ/L Chloride Level 99 MEQ/L 95 MEQ/L 90 MEQ/L Carbon Dioxide Level 24.2 MEQ/L 23.5 MEQ/L 24.7 MEQ/L Anion Gap 14 MEQ/L 17 MEQ/L 19 MEQ/L Estimat Glomerular Filtration Rate 11 ML/MIN 10 ML/MIN 8 ML/MIN Protein Corrected Calcium 7.4 MG/DL 6.9 MG/DL 7.1 MG/DL Albumin 1.1 GM/DL Phosphorus Level 6.5 MG/DL Magnesium Level 2.4 MG/DL Alkaline Phosphatase 60 U/L Aspartate Amino Transf (AST/SGOT) 128 U/L Alanine Aminotransferase (ALT/SGPT) 36 U/L Total Bilirubin 1.1 MG/DL Lactic Acid Level 3.2 mmol/L B-Type Natriuretic Peptide 465 PG/ML Imaging Last Impressions Chest X-Ray 09/30/17 0600 Signed Impressions: CONCLUSION: No appreciable change. Head CT 09/27/17 0000 Signed Impressions: CONCLUSION: No acute intracranial abnormality demonstrated. Physical Exam GENERAL: Elderly ill appearing male patient, in no apparent distress. SKIN: Areas of ecchymosis, cool clammy skin. HEAD: Atraumatic. Normocephalic. No temporal or scalp tenderness. EYES: Pupils equal round and reactive. ENT: Intubated NECK: Trachea midline.Supple, nontender, no meningeal signs. CARDIOVASCULAR: HS audible. RESPIRATORY: AE decreased in the bases. GASTROINTESTINAL: Abdomen soft, non-tender, nondistended. MUSCULOSKELETAL: Extremities without clubbing, cyanosis, or edema. NEUROLOGICAL: No response to verbal or painful stimuli for me. Psych cooperative IV line sites with no e.o infection Assessment & Plan Remarks Septic Shock (hypothermia, leucocytosis, hypotension, source PNA) Pneumonia in patient with recurrent admissions to hospital. Likely Health care associated PNA. MRSA pneumonia. Gram negative pneumonia H/o Cdiff. Acute resp failure on vent Acute renal failure oliguric. COPD acute exacerbation Thrombocytopenia like sepsis related. ? meds recs Continue Zosyn IV Random Vanco this am still at 20. No need further vanco IV for now unless goals remain aggressive in am. Will follow. Follow cultures Follow clinically. dw Palliative care team: await legal document from OA. Roya Velez MD September 30, 2017 10:47
[2017-09-30] MEDS ORDERED: fentaNYL DRIP 250 ML IV PRN (16:15)
[2017-09-30] MEDS ORDERED: HYOSCYAMINE 0.5 MG/ML AMP IV PUSH ONE (16:15)
[2017-09-30] MEDS ORDERED: LORazepam 2 MG/ML VIAL IV PUSH ONE ×2 (16:15→16:30)
[2017-09-30] MEDS ORDERED: BISACODYL 10 MG SUPP RECTAL PRN (16:45)
[2017-09-30] MEDS ORDERED: FUROSEMIDE 20 MG/2 ML VIAL IV PUSH PRN (16:45)
[2017-09-30] MEDS ORDERED: HYDROmorphone HCL PF 2 MG/ML VIAL IV PUSH PRN ×2 (16:45)
[2017-09-30] MEDS ORDERED: LORazepam 2 MG/ML VIAL IV PUSH PRN ×3 (16:45)
[2017-09-30] MEDS ORDERED: ACETAMINOPHEN 650 MG SUPP RECTAL PRN (16:45)
[2017-09-30] MEDS ORDERED: HYOSCYAMINE 0.5 MG/ML AMP IV PUSH PRN (16:45)
[2017-09-30] MEDS ORDERED: HYDROmorphone HCL PF 2 MG/ML VIAL IV PUSH SCH (20:00)
[2017-09-30] MEDS ORDERED: LORazepam 2 MG/ML VIAL IV PUSH SCH (20:00)
[2017-09-30] MEDS ORDERED: FAMOTIDINE 20 MG TAB PO SCH (21:00)
--- NOTE | 2017-10-01 09:51 | HHI.DS ---
Summary Note Date of : September 30, 2017 Time Of : 1750 Admission Date September 27, 2017 at 04:00 Admitting Diagnosis RESP FAILURE S/P INTUBATION, SEPTIC SHOCK Diagnosis at Time of : Brief History 77-year-old gentleman currently a resident at [facility], apparently the patient asked for pain medication and was given a hydrocodone approximately 2 hours prior to admission. Then upon be asking to go use the bathroom and ask for assistance the IRRIGATION ENGINEER noticed that he was slumped over and did not seem to be responsive. 911 was called, upon arrival EMS states that he was and respiratory distress with severe work of breathing and the patient required intubation emergently. Per chart documentation used 20 of etomidate of 4 mg of Versed to aid in sedation for the intubation. CBC/BMP: 09/30/17 0440 09/30/17 0440 Significant Findings Laboratory Tests Test 09/28/17 12:30 09/28/17 12:34 09/28/17 16:28 09/29/17 05:00 HIPA Patient Optical Density 0.368 O.D. (0.000-0.300) Blood Gas HCO3 18 mmol/L (22-26) Blood Gas Base Excess -7.9 mmol/L (-2-2) Arterial Blood pH 7.26 (7.380-7.420) Arterial Blood Oxygen Content 11.7 Vol % (12.0-20.0) Blood Gas Hemoglobin 8.8 G/DL (12.0-16.0) Blood Urea Nitrogen 50 MG/DL (7-18) 49 MG/DL (7-18) Creatinine 5.18 MG/DL (0.60-1.30) 5.71 MG/DL (0.60-1.30) Random Glucose 228 MG/DL (74-106) 327 MG/DL (74-106) Total Protein 5.1 GM/DL (6.4-8.2) 4.9 GM/DL (6.4-8.2) Calcium Level 6.4 MG/DL (8.5-10.1) 5.9 MG/DL (8.5-10.1) Estimat Glomerular Filtration Rate 11 ML/MIN (>89) 10 ML/MIN (>89) Protein Corrected Calcium 7.4 MG/DL (8.5-10.1) 6.9 MG/DL (8.5-10.1) White Blood Count 17.5 TH/MM3 (4.0-11.0) Red Blood Count 3.09 MIL/MM3 (4.50-5.90) Hemoglobin 8.5 GM/DL (13.0-17.0) Hematocrit 26.7 % (39.0-51.0) Mean Corpuscular Hemoglobin Concent 31.9 % (32.0-36.0) Red Cell Distribution Width 24.9 % (11.6-17.2) Platelet Count 31 TH/MM3 (150-450) Neutrophils (%) (Auto) 88.2 % (16.0-70.0) Lymphocytes (%) (Auto) 5.4 % (9.0-44.0) Neutrophils # (Auto) 15.4 TH/MM3 (1.8-7.7) Lymphocytes # (Auto) 0.9 TH/MM3 (1.0-4.8) Monocytes # (Auto) 1.1 TH/MM3 (0-0.9) Neutrophils % (Manual) 82 % (16-70) Band Neutrophils % 7 % (0-6) Lymphocytes % 5 % (9-44) Neutrophils # (Manual) 15.6 TH/MM3 (1.8-7.7) Nucleated Red Blood Cells 38 /100 WBC (0-0) Platelet Estimate LOW (NORMAL) Platelet Morphology Comment ENLARGED (NORMAL) Polychromasia 2.6 % (0.0-1.9) Basophilic Stippling FAINT (NORMAL) Target Cells 1+ (NORMAL) Ovalocytes 1+ (NORMAL) Albumin 1.1 GM/DL (3.4-5.0) Phosphorus Level 6.5 MG/DL (2.5-4.9) Aspartate Amino Transf (AST/SGOT) 128 U/L (15-37) Total Bilirubin 1.1 MG/DL (0.2-1.0) Sodium Level 135 MEQ/L (136-145) Chloride Level 95 MEQ/L (98-107) Anion Gap 17 MEQ/L (5-15) Lactic Acid Level 3.2 mmol/L (0.4-2.0) B-Type Natriuretic Peptide 465 PG/ML (0-100) Test 09/29/17 05:23 09/30/17 04:40 09/30/17 05:51 Blood Gas HCO3 21 mmol/L (22-26) Blood Gas Base Excess -3.5 mmol/L (-2-2) Arterial Blood pH 7.33 (7.380-7.420) Arterial Blood Oxygen Content 10.6 Vol % (12.0-20.0) Blood Gas Hemoglobin 7.9 G/DL (12.0-16.0) 10.4 G/DL (12.0-16.0) White Blood Count 18.2 TH/MM3 (4.0-11.0) Red Blood Count 3.23 MIL/MM3 (4.50-5.90) Hemoglobin 8.8 GM/DL (13.0-17.0) Hematocrit 28.1 % (39.0-51.0) Mean Corpuscular Hemoglobin Concent 31.5 % (32.0-36.0) Red Cell Distribution Width 25.6 % (11.6-17.2) Platelet Count 31 TH/MM3 (150-450) Neutrophils (%) (Auto) 89.0 % (16.0-70.0) Lymphocytes (%) (Auto) 7.2 % (9.0-44.0) Neutrophils # (Auto) 16.2 TH/MM3 (1.8-7.7) Band Neutrophils % 14 % (0-6) Neutrophils # (Manual) 13.8 TH/MM3 (1.8-7.7) Nucleated Red Blood Cells 32 /100 WBC (0-0) Platelet Estimate LOW (NORMAL) Basophilic Stippling MOD (NORMAL) Blood Urea Nitrogen 58 MG/DL (7-18) Creatinine 6.44 MG/DL (0.60-1.30) Random Glucose 315 MG/DL (74-106) Total Protein 5.1 GM/DL (6.4-8.2) Calcium Level 6.2 MG/DL (8.5-10.1) Sodium Level 134 MEQ/L (136-145) Potassium Level 5.2 MEQ/L (3.5-5.1) Chloride Level 90 MEQ/L (98-107) Anion Gap 19 MEQ/L (5-15) Estimat Glomerular Filtration Rate 8 ML/MIN (>89) Protein Corrected Calcium 7.1 MG/DL (8.5-10.1) Blood Gas Oxygen Saturation 87 % (90-100) Arterial Blood Partial Pressure O2 60 mmHg (61-120) Imaging Last Impressions Chest X-Ray 09/28/17 0600 Signed Impressions: CONCLUSION: Probable mild pulmonary edema and slight bibasilar atelectasis and/or infiltrat e worse on the left. Head CT 09/27/17 0000 Signed Impressions: CONCLUSION: No acute intracranial abnormality demonstrated. Last 24 hours Impressions Chest X-Ray 09/27/17 0259 Signed Impressions: CONCLUSION: 1. There is a new left subclavian line. Based on its course, it could be arter ial and please confirm this is not the case clinically. 2. No pneumothorax. 3. Mild basilar consolidation and small left pleural effusion not significantl y changed. Chest X-Ray 09/27/17 0128 Signed Impressions: CONCLUSION: 1. Mild bibasilar consolidation and small left pleural effusion. 2. Appropriate endotracheal tube tip position. Hospital Course 09/27:07, discussed with radiologist placement of left subclavian line by emergency room department. Dr. Hendricks, discussed possibility of arterial placement of left subclavian line. ABGs obtained from subclavian line-noted venous PaO2 39. Left radial arterial line, placed PaO2 59. Patient continues on phenylephrine currently at 150 mcgs. 09/28: Late entry note. Patient seen at 12 PM. Leukocytosis worsening. MRSA in sputum but MDRO, infectious disease consulted. Patient noted with metabolic acidosis 1 amp sodium bicarbonate provided and infusion initiated. Patient continues on norepinephrine at 2 mcgs/min, phenylephrine has been weaned off. Cardiac index 2.7 cardiac output per Flotrach 5.0. 09/29: Patient in multisystem organ failure, hypoglycemic last night required 2 Amps of D50 patient continues on vasopressor support to maintain a MAP greater than 65 the patient currently is in acute renal failure no interventions plan discussion with family requests comfort care measures to be instituted in the near future. Family does not want dialysis, stating the patient has had a continuous decline. Palliative care medicine has been consulted, clarification regarding comfort care measures be instituted versus possible hospice care. 09/30: No acute events overnight. I contacted Ms. Jessika Quevedo patient's daughter , and plan for initiation of comfort care measures to be initiated per palliative care team. 09/30: 1750-comfort care measures were instituted. The patient at 1750 Heather Escobedo MD October 01, 2017 09:51
== END 2017-09-30 21:45 | disposition expired | DRG 871 ==
LOC: NEPE 01:13 → NEDA 04:00 → HIMW 05:50
PROVIDERS: ADMIT Internal Medicine Critical Care Medicine; ATTEND Internal Medicine Critical Care Medicine
PROC: 05H633Z Insertion of Infusion Device into Left Subclavian Vein, Percutaneous Approach (ICD-10-PCS; principal; 2017-09-27)
PROC: 5A1945Z Respiratory Ventilation, 24-96 Consecutive Hours (ICD-10-PCS; 2017-09-27)
PROC: 30233N1 Transfusion of Nonautologous Red Blood Cells into Peripheral Vein, Percutaneous Approach (ICD-10-PCS; 2017-09-27)
DX: A41.9 Sepsis, unspecified organism (principal); R65.21 Severe sepsis with septic shock; J96.21 Acute and chronic respiratory failure with hypoxia; J96.22 Acute and chronic respiratory failure with hypercapnia; N17.9 Acute kidney failure, unspecified; J15.212 Pneumonia due to Methicillin resistant Staphylococcus aureus; G93.41 Metabolic encephalopathy; I13.0 Hypertensive heart and chronic kidney disease with heart failure and stage 1 through stage 4 chronic kidney disease, or unspecified chronic kidney disease; E87.2 Acidosis; E44.0 Moderate protein-calorie malnutrition; D69.6 Thrombocytopenia, unspecified; I50.9 Heart failure, unspecified; N18.9 Chronic kidney disease, unspecified; I48.0 Paroxysmal atrial fibrillation; E11.22 Type 2 diabetes mellitus with diabetic chronic kidney disease; Z79.4 Long term (current) use of insulin; E83.51 Hypocalcemia; D64.9 Anemia, unspecified; I25.10 Atherosclerotic heart disease of native coronary artery without angina pectoris; I25.5 Ischemic cardiomyopathy; Z95.5 Presence of coronary angioplasty implant and graft; I25.2 Old myocardial infarction; Z68.25 Body mass index [BMI] 25.0-25.9, adult; Z85.51 Personal history of malignant neoplasm of bladder; K21.9 Gastro-esophageal reflux disease without esophagitis; F32.9 Major depressive disorder, single episode, unspecified; J44.9 Chronic obstructive pulmonary disease, unspecified; Z99.81 Dependence on supplemental oxygen; Z66 Do not resuscitate; I71.4 Abdominal aortic aneurysm, without rupture; Z88.2 Allergy status to sulfonamides; Z87.891 Personal history of nicotine dependence
CPT/HCPCS: 36430; 36556; 36600; 51702; 70450; 71045; 80048; 80053; 80202; 81001; 82140; 82533; 82550; 82570; 82805; 82948; 83036; 83605; 83690; 83735; 83880; 84100; 84155; 84300; 84484; 84540; 85007; 85014; 85018; 85025; 85027; 85610; 85730; 86022; 86850; 86900; 86901; 86920; 86922; 87040; 87070; 87086; 87205; 87449; 87641; 93005; 93306; 94002; 94003; 94640; 94664; 96360; J0610; J1644; J1720; J1815; J1980; J2060; J2370; J2543; J3010; J3370; J7030; J7040; J7050; J7060; J7070; P9016